=== PATIENT | male | born 1940 | race Caucasian/White ===

== ENCOUNTER 2016-09-12 15:42 | Inpatient (IN) | payer MEDICARE ==
[~2016-09-12] VITALS: Ht 172.7 cm; Wt 124.8 kg
--- NOTE | 2016-09-12 16:00 | PHYS DOC ---
Adult General Chief Complaint Chief Complaint: PSYCH EVALUATION HPI HPI Patient is a 76-year-old man brought from a longterm facility for medical screening exam prior to admission to behavioral unit. Patient was transported by a wheelchair van to the ED, bringing paperwork from his longterm. Patient does not know where he is or why he is here, he does have behavior consistent with dementia. 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 He denies having any pain at this time. He denies being short of air. He is alert, cooperative, and talkative, but does not have any meaningful contribution to the history. Records from the longterm were reviewed, including med list showing that he has been on warfarin and on Depakote for mood control. Review of Systems Review of Systems Review of systems not able to be obtained because the patient has dementia and not able to contribute to answering these questions Physical Exam Physical Exam Constitutional: Well developed, well nourished, no acute distress, non-toxic appearance. Alert, talkative, cooperative, does not appear to be in any distress. HENT: Normocephalic, atraumatic, bilateral external ears normal, nose normal. [] Eyes: conjunctiva normal, no discharge. [] Neck: Normal range of motion, no stridor. [] Cardiovascular:Heart rate regular rhythm, no murmur [] Lungs & Thorax: Bilateral breath sounds clear to auscultation [] Abdomen: Bowel sounds normal, soft, no tenderness, no masses, no pulsatile masses. [] Skin: Warm, dry, no erythema, no rash. [] Extremities: No tenderness, no cyanosis, no clubbing, ROM intact, chronic appearing edema of both ankles and feet, 2+ left, 1+ right, with some redness of the skin of the lower leg bilaterally, may be chronic Neurologic: Alert and oriented X one, normal motor function, normal sensory function, no focal deficits noted. [] EKG EKG 12-lead EKG read by me. Sinus rhythm. Heart rate 70. Left anterior fascicular block with slightly widened QRS. There are no acute ST or T wave changes indicative of ischemia or infarction. There is no rhythm disturbance. No STEMI. 1554 [] Radiology/Procedures Radiology/Procedures [] Course & Med Decision Making Course & Med Decision Making Pertinent Labs and Imaging studies reviewed. (See chart for details) 76-year-old male presents for medical clearance prior to admission to [facility] behavioral health unit. Patient is cooperative at this time. Labs, urine, EKG ordered. Labs remarkable for mild anemia, doubt acute. INR therapeutic. Valproic acid level is subtherapeutic, however, patient's longterm chart indicates that this is used for "behavior" so it may well not need to be in the therapeutic anticonvulsant range. Urinalysis unremarkable. Patient is medically stable for admission to the [facility] health unit. [] Dragon Disclaimer Dragon Disclaimer This chart was dictated in whole or in part using Voice Recognition software in a busy, high-work load, and often noisy Emergency Department environment. It may contain unintended and wholly unrecognized errors or omissions. Departure Departure: Impression: Primary Impression: Encounter for medical screening examination Additional Impression: Dementia Disposition: ADMITTED INPATIENT Condition: STABLE Referrals: BINA HALL JR, MD (PCP) Problem Qualifiers OBEY LIN MD September 12, 2016 16:00
--- NOTE | 2016-09-12 16:06 | EKG ---
[address] [address] Test Date: 2016-09-12 Test Time: 15:54:53 Pat Name: ABBEY MATHIS Department: Room: Gender: M Quality Assurance Specialist: : [id number] Requested By: OBEY LIN Order Number: [id number] Reading MD: Anthony Pagan Measurements Intervals Leigh Rate: 70 P: 39 FL: 226 QRS: -38 QRSD: 110 T: 0 QT: 424 QTc: 461 Interpretive Statements SINUS RHYTHM PROLONGED FL INTERVAL Electronically Signed On 09-17-2016 9:24:57 CDT by Anthony Pagan
[2016-09-12 16:30] LABS: BASO # 0.1 x10^3/uL (0.0-0.2); BASO % 1 % (0-3); EOS # 0.3 x10^3/uL (0.0-0.7); EOS % 4 % (0-3); HEMATOCRIT 33.5 % (39.0-53.0); HEMOGLOBIN 11.2 g/dL (13.0-17.5); LYMPH # 1.2 x10^3/uL (1.0-4.8); LYMPH % 18 % (24-48); MEAN CORPUSCULAR HEMOGLOBIN 29 pg (25-35); MEAN CORPUSCULAR HGB CONC 34 g/dL (31-37); MEAN CORPUSCULAR VOLUME 88 fL (79-100); MONO # 0.8 x10^3/uL (0.0-1.1); MONO % 11 % (0-9); NEUT # 4.6 x10^3uL (1.8-7.7); NEUT % 67 % (31-73); PLATELET COUNT 149 x10^3/uL (140-400); RED BLOOD COUNT 3.83 x10^6/uL (4.30-5.70); RED CELL DISTRIBUTION WIDTH 15.5 % (11.5-14.5); WHITE BLOOD COUNT 6.9 x10^3/uL (4.0-11.0)
[2016-09-12 16:41] LABS: ALBUMIN 3.4 g/dL (3.4-5.0); ALBUMIN/GLOBULIN RATIO 0.9 (1.0-1.7); ALK PHOS 56 U/L (46-116); ALT (SGPT) 22 U/L (16-63); ANION GAP 9 (6-14); AST (SGOT) 22 U/L (15-37); BLOOD UREA NITROGEN 17 mg/dL (8-26); BUN/CREATININE RATIO 14 (6-20); CALCIUM 8.8 mg/dL (8.5-10.1); CARBON DIOXIDE 27 mmol/L (21-32); CHLORIDE 107 mmol/L (98-107); CREATININE 1.2 mg/dL (0.7-1.3); GFR 59.2; GLUCOSE 92 mg/dL (70-99); MAGNESIUM 2.1 mg/dL (1.8-2.4); POTASSIUM 4.4 mmol/L (3.5-5.1); SODIUM 143 mmol/L (136-145); TOTAL BILIRUBIN 1.2 mg/dL (0.2-1.0); TOTAL PROTEIN 7.1 g/dL (6.4-8.2); VAL ACID 28 mcg/mL (50-100)
[2016-09-12 17:08] LABS: BILIRUBIN,URINE NEG (NEG); CLARITY,URINE CLEAR; COLOR,URINE YELLOW; GLUCOSE,URINE NEG (NEG)
[2016-09-12 17:09] LABS: BACTERIA,URINE 0 /HPF (0-FEW); NITRITE,URINE NEG (NEG); RBC,URINE OCC /HPF (0-2); UROBILINOGEN,URINE 0.2 mg/dL (0.2 mg/dL); WBC,URINE OCC /HPF (0-4)
[2016-09-12 18:31] VITALS: BP 162/79
--- NOTE | 2016-09-12 19:01 | NUR ---
Pt arrived on unit via gurney accompanied by EMS staff. Dx: Dementia w BD. Pt A/O to self, . Pt states that it is 1996 and that he is not staying the night, he is going back to [place], [place]. Pt refusing to leave room and eat dinner. Will continue to monitor.
[2016-09-12] MEDS ORDERED: MAGNESIUM HYDROXIDE 2,400 MG/30 ML ORAL.SUSP. PO PRN (19:15)
[2016-09-12] MEDS ORDERED: METHYL SALICYLATE/MENTHOL TOPICAL OINTMENT 29GM TUBE. TP PRN (19:15)
[2016-09-12] MEDS ORDERED: MAG HYDROX/AL HYDROX/SIMETH 30 ML ORAL.SUSP PO PRN (19:15)
[2016-09-12] MEDS ORDERED: ACETAMINOPHEN 325 MG TABLET PO PRN (19:15)
[2016-09-12] MEDS ORDERED: LISI-338 PO (19:32)
[2016-09-12] MEDS ORDERED: TAMS0.4C2 PO (19:32)
[2016-09-12] MEDS ORDERED: LORA0.5T96 PO (19:32)
[2016-09-12] MEDS ORDERED: LORA-434 PO (19:32)
[2016-09-12] MEDS ORDERED: [UNRECOGNIZED DRUG - CODE] TD (19:32)
[2016-09-12] MEDS ORDERED: FAMO20TA5 PO (19:32)
[2016-09-12] MEDS ORDERED: LOPE2CAP88 PO (19:32)
[2016-09-12] MEDS ORDERED: BUSP7.5T PO (19:32)
[2016-09-12] MEDS ORDERED: ASPI-630 PO (19:32)
[2016-09-12] MEDS ORDERED: AMIO200T2 PO (19:32)
[2016-09-12] MEDS ORDERED: DIVA250T4 PO (19:32)
[2016-09-12] MEDS ORDERED: MULT1TAB57 PO (19:32)
[2016-09-12] MEDS ORDERED: LOPERAMIDE 2 MG CAPSULE PO PRN (19:45)
[2016-09-12] MEDS: DIVALPROEX SODIUM 250 MG TABLET.DR. PO SCH (20:50)
[2016-09-12] MEDS: busPIRone 15 MG TABLET. PO SCH (20:50)
[2016-09-12] MEDS: LORazepam 1 MG TABLET PO SCH (20:52)
--- NOTE | 2016-09-12 22:01 | PDOC ---
Exam Blake Demential Exam: Blake Note: Please also refer to the separate dictated note~for this date of service dictated separately.~Patient seen individually. Discussed the patient with Nursing staff reviewed the chart.~Reviewed interim history and current functioning. Reviewed vital signs,~Labs/ Radiology~and current medications noted below. Continue current treatment with the changes noted in the dictated addendum note Assessment: Vital Signs: Vital Signs Date Time Temp Pulse Resp B/P (MAP) Pulse Ox O2 Delivery O2 Flow Rate FiO2 09/12/16 18:31 97.2 70 18 162/79 (106) 96 09/12/16 17:18 Room Air 95.0 Labs: Laboratory Tests Test 09/12/16 16:05 09/12/16 16:25 White Blood Count 6.9 x10^3/uL (4.0-11.0) Red Blood Count 3.83 x10^6/uL (4.30-5.70) L Hemoglobin 11.2 g/dL (13.0-17.5) L Hematocrit 33.5 % (39.0-53.0) L Mean Corpuscular Volume 88 fL (79-100) Mean Corpuscular Hemoglobin 29 pg (25-35) Mean Corpuscular Hemoglobin Concent 34 g/dL (31-37) Red Cell Distribution Width 15.5 % (11.5-14.5) H Platelet Count 149 x10^3/uL (140-400) Neutrophils (%) (Auto) 67 % (31-73) Lymphocytes (%) (Auto) 18 % (24-48) L Monocytes (%) (Auto) 11 % (0-9) H Eosinophils (%) (Auto) 4 % (0-3) H Basophils (%) (Auto) 1 % (0-3) Neutrophils # (Auto) 4.6 x10^3uL (1.8-7.7) Lymphocytes # (Auto) 1.2 x10^3/uL (1.0-4.8) Monocytes # (Auto) 0.8 x10^3/uL (0.0-1.1) Eosinophils # (Auto) 0.3 x10^3/uL (0.0-0.7) Basophils # (Auto) 0.1 x10^3/uL (0.0-0.2) Prothrombin Time 26.3 SEC (9.4-11.4) H Prothrombin Time INR 2.6 (0.9-1.1) H Sodium Level 143 mmol/L (136-145) Potassium Level 4.4 mmol/L (3.5-5.1) Chloride Level 107 mmol/L (98-107) Carbon Dioxide Level 27 mmol/L (21-32) Anion Gap 9 (6-14) Blood Urea Nitrogen 17 mg/dL (8-26) Creatinine 1.2 mg/dL (0.7-1.3) Estimated GFR (Cockcroft-Gault) 59.2 BUN/Creatinine Ratio 14 (6-20) Glucose Level 92 mg/dL (70-99) Calcium Level 8.8 mg/dL (8.5-10.1) Magnesium Level 2.1 mg/dL (1.8-2.4) Total Bilirubin 1.2 mg/dL (0.2-1.0) H Aspartate Amino Transferase (AST) 22 U/L (15-37) Alanine Aminotransferase (ALT) 22 U/L (16-63) Alkaline Phosphatase 56 U/L (46-116) Total Protein 7.1 g/dL (6.4-8.2) Albumin 3.4 g/dL (3.4-5.0) Albumin/Globulin Ratio 0.9 (1.0-1.7) L Valproic Acid Level 28 mcg/mL (50-100) L Valproic Acid Last Dose Date 09/12/16 Valproic Acid Last Dose Time 0800 Urine Collection Type Unknown Urine Color Yellow Urine Clarity Clear Urine pH 6.5 Urine Specific [place] 1.020 Urine Protein Neg (NEG-TRACE) Urine Glucose (UA) Neg mg/dL (NEG) Urine Ketones (Stick) Neg mg/dL (NEG) Urine Blood Neg (NEG) Urine Nitrite Neg (NEG) Urine Bilirubin Neg (NEG) Urine Urobilinogen Dipstick 0.2 mg/dL (0.2 mg/dL) Urine Leukocyte Esterase Neg (NEG) Urine RBC Occ /HPF (0-2) Urine WBC Occ /HPF (0-4) Urine Squamous Epithelial Cells None /LPF Urine Bacteria 0 /HPF (0-FEW) Current Medications: Meds: Current Medications Acetaminophen (Tylenol) 650 mg PRN Q6HRS PRN PO PAIN / TEMP; Start 09/12/16 at 19:15 Multi-Ingredient Ointment (Analgesic [place]) 1 wilfredo PRN QID PRN TP MUSCLE PAIN; Start 09/12/16 at 19:15 Al Hydroxide/Mg Hydroxide (Mylanta Plus Xs) 15 ml PRN AFTMEALHC PRN PO DYSPEPSIA; Start 09/12/16 at 19:15 Magnesium Hydroxide (Milk Of Magnesia) 2,400 mg PRN QHS PRN PO CONSTIPATION; Start 09/12/16 at 19:15 Divalproex Sodium (Depakote) 250 mg BID PO Last administered on 09/12/16 20:50 ; Start 09/12/16 at 21:00 Lorazepam (Ativan) 0.5 mg PRN BID PRN PO ANXIETY / AGITATION; Start 09/12/16 at 19:45 Lorazepam (Ativan) 1 mg BID PO Last administered on 09/12/16 20:52; Start 02/19 at 21:00 Selegiline HCl (Emsam) 1 patch DAILY TD ; Start 09/13/16 at 09:00; Status UNV Buspirone HCl (Buspar) 7.5 mg BID PO Last administered on 09/12/16 20:50; Start 09/12/16 at 21:00 Amiodarone HCl (Cordarone) 100 mg DAILY PO ; Start 09/13/16 at 09:00 Aspirin (Children'S Aspirin) 81 mg DAILY PO ; Start 09/13/16 at 09:00 Famotidine (Pepcid) 20 mg DAILY PO ; Start 09/13/16 at 09:00 Lisinopril (Prinivil) 5 mg DAILY PO ; Start 09/13/16 at 09:00 Loperamide HCl (Imodium) 2 mg PRN Q4HRS PRN PO DIARRHEA; Start 09/12/16 at 19: 45 Tamsulosin HCl (Flomax) 0.4 mg DAILY PO ; Start 09/13/16 at 09:00 Warfarin Sodium (Coumadin) 2.5 mg DAILY16 PO ; Start 09/13/16 at 16:00 Multivitamins/ Calcium (Thera-M Plus) 1 tab DAILY PO ; Start 09/13/16 at 09:00 Warfarin Sodium (Coumadin) 2 mg DAILY16 PO ; Start 09/13/16 at 16:00 Active Scripts Active Reported Therems-M (Multivits,Th W-Fe,Other Min) 1 Each Tablet 1 Each PO DAILY Tamsulosin Hcl 0.4 Mg Cap.er.24h 0.4 Mg PO DAILY Lisinopril 5 Mg Tablet 5 Mg PO DAILY Famotidine 20 Mg Tablet 20 Mg PO DAILY Emsam (Selegiline) 1 Each Patch.td24 1 Each TD DAILY Aspirin 81 Mg Tab.chew 81 Mg PO DAILY Amiodarone Hcl 200 Mg Tablet 100 Mg PO DAILY Depakote (Divalproex Sodium) 250 Mg Tablet.dr 250 Mg PO BID Coumadin (Warfarin Sodium) 4 Mg Tablet 4.5 Mg PO DAILY Ativan (Lorazepam) 0.5 Mg Tablet 0.5 Mg PO PRN BID PRN Imodium A-D (Loperamide HCl) 2 Mg Capsule 2 Mg PO PRN PRN MDD 12 mg Ativan (Lorazepam) 1 Mg Tablet 1 Mg PO BID Buspirone Hcl 7.5 Mg Tablet 7.5 Mg PO BID LINDSAY BROWN MD September 12, 2016 22:01
[2016-09-13 06:27] VITALS: BP 129/87
[2016-09-13] MEDS: busPIRone 15 MG TABLET. PO SCH ×2 (07:55→20:02)
[2016-09-13] MEDS: DIVALPROEX SODIUM 250 MG TABLET.DR. PO SCH ×2 (07:56→20:02)
[2016-09-13] MEDS: LORazepam 1 MG TABLET PO SCH ×2 (07:59→20:02)
[2016-09-13] MEDS: ASPIRIN 81 MG TAB.CHEW PO SCH (07:59)
[2016-09-13] MEDS: TAMSULOSIN 0.4 MG CAP.ER.24H. PO SCH (08:00)
[2016-09-13] MEDS: AMIODARONE HCL 200 MG TABLET PO SCH (08:00)
[2016-09-13] MEDS: FAMOTIDINE 20 MG TABLET PO SCH (08:00)
[2016-09-13] MEDS: LISINOPRIL 5 MG TABLET. PO SCH (08:01)
[2016-09-13] MEDS: MULTIVITAMIN with MINERAL TABLET. PO SCH (08:01)
[2016-09-13] MEDS ORDERED: SELEGILINE TD SCH (09:00)
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
--- NOTE | 2016-09-13 10:45 | NUR ---
THERAPEUTIC RECREATION GROUP NOTE TITLE :Balloon Bop with Noodles ACTIVITY : Activities and Games GOAL : Increase socialization and alertness. Maintain/improve mental and physical functioning. DURATION : 60 Minutes RESPONSE : Full participation. Pt. sat with a smile on his face most of the time. He used the pool noodle and hand to hit the balloon when it came to him. He waited patiently when it was not near him. He needed prompting and cues but was quick to comply. He was pleasant to have in group.
--- NOTE | 2016-09-13 12:14 | NUR ---
Pharmacy Warfarin Dosing Note S:Pharmacy consulted to assist with anticoagulation therapy started with target INR: 2 -3 O:ABBEY MATHIS is a 76 year old M with hx of stroke. LABS: Last INR: 2.6 Last HGB: 11.2 Last HCT: 33.5 Last PLT: 149 Previous Regimen: COUMADIN 4.5MG PO DAILY Drug Interaction Changes: Same Interacting Drug Ongoing Drug Interactions: AMIODARONE A:INR Within desired Range. Target Range for this patient is: 2 -3 P: Warfarin dose: Continue home dose of Coumadin 4.5MG daily at 1600 Bridge Therapy: None Next INR due 09/14/16 Pharmacy anticoagulation service will continue to follow. CHAYO ACEVEDO, [facility] 09/13/16 [id number]
--- NOTE | 2016-09-13 14:00 | NUR ---
THERAPEUTIC RECREATION GROUP NOTE TITLE :Jessie/ 23 ACTIVITY : Activities and Games GOAL : Increase social interaction, fine motor skills. Maintain or improve mental functioning. Decrease restlessness DURATION : 60 minutes RESPONSE : No participation.
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
[2016-09-13] MEDS: WARFARIN 2 MG TABLET. PO SCH (16:12)
[2016-09-13] MEDS: WARFARIN 2.5 MG TABLET. PO SCH (16:13)
[2016-09-13 16:17] VITALS: BP 134/83
--- NOTE | 2016-09-13 16:48 | NUR ---
Behavior Intervention Response and Plan: BIRP Note: Behavior: Assumed Care of patient, patient located in Dining Room at shift change. Patient exhibited the following behavior Cooperative, Compliant, Calm. Brief assessment on rounds of vital signs, medication needs, lab studies, and pain. Treatment plan problems 1 and 2. Intervention: Patient assessed and the following interventions initiated safety checks 15 Minute Checks Medications , Nutrition , Nutrition. Response: After interactions and interventions patient responded in the following manner, Calm , Interactive ,Disorganized. Continue to assess behaviors and condition will continue to monitor throughout the shift as needed. Plan: Continue to monitor Master Treatment Plan for patient's progress toward short term goals of Decreased Aggression, Decreased Agitation, retirement goals to return to previous living setting vs placement. Continue to assess patient for changes in above assessment. Monitor for medication needs, pain, and safety concerns. Hourly rounding performed to ensure safe environment.
[2016-09-13 18:09] LABS: T3 TOTAL 97 ng/dL (71-180); THYROXINE 7.5 ug/dL (4.5-12.0)
--- NOTE | 2016-09-13 21:03 | PDOC ---
Exam Blake Demential Exam: Blake Note: Please also refer to the separate dictated note~for this date of service dictated separately.~Patient seen individually. Discussed the patient with Nursing staff reviewed the chart.~Reviewed interim history and current functioning. Reviewed vital signs,~Labs/ Radiology~and current medications noted below. Continue current treatment with the changes noted in the dictated addendum note Assessment: Vital Signs: Vital Signs Date Time Temp Pulse Resp B/P (MAP) Pulse Ox O2 Delivery O2 Flow Rate FiO2 09/13/16 16:17 97.2 74 17 134/83 (100) 93 09/12/16 17:18 Room Air 95.0 I&O Intake and Output 09/13/16 07:00 Intake Total 120 ml Output Total 1 ml Balance 119 ml Intake Oral 120 ml Output Stool Total 1 ml # Voids 3 Labs: Laboratory Tests Test 09/12/16 21:47 Triglycerides Level 69 mg/dL (0-150) Cholesterol Level 135 mg/dL (0-200) LDL Cholesterol, Calculated 89 mg/dL (0-100) VLDL Cholesterol, Calculated 13 mg/dL (0-40) Non-HDL Cholesterol Calculated 102 mg/dL (0-129) HDL Cholesterol 33 mg/dL (40-60) L Cholesterol/HDL Ratio 4.0 Thyroxine (T4) 7.5 ug/dL (4.5-12.0) Total Triiodothyronine (TT3) 97 ng/dL (71-180) RPR Titer Additional Testing Pending Current Medications: Meds: Current Medications Acetaminophen (Tylenol) 650 mg PRN Q6HRS PRN PO PAIN / TEMP; Start 09/12/16 at 19:15 Multi-Ingredient Ointment (Analgesic [place]) 1 wilfredo PRN QID PRN TP MUSCLE PAIN; Start 09/12/16 at 19:15 Al Hydroxide/Mg Hydroxide (Mylanta Plus Xs) 15 ml PRN AFTMEALHC PRN PO DYSPEPSIA; Start 09/12/16 at 19:15 Magnesium Hydroxide (Milk Of Magnesia) 2,400 mg PRN QHS PRN PO CONSTIPATION; Start 09/12/16 at 19:15 Divalproex Sodium (Depakote) 250 mg BID PO Last administered on 09/13/16t 20:02 ; Start 09/12/16 at 21:00 Lorazepam (Ativan) 0.5 mg PRN BID PRN PO ANXIETY / AGITATION; Start 09/12/16 at 19:45 Lorazepam (Ativan) 1 mg BID PO Last administered on 09/13/16 20:02; Start 02/19 at 21:00 Selegiline HCl (Emsam) 1 patch DAILY TD ; Start 09/13/16 at 09:00; Stop at 18:35; Status DC Buspirone HCl (Buspar) 7.5 mg BID PO Last administered on 09/13/16 20:02; Start 09/12/16 at 21:00 Amiodarone HCl (Cordarone) 100 mg DAILY PO Last administered on 09/13/16 08:00 ; Start 09/13/16 at 09:00 Aspirin (Children'S Aspirin) 81 mg DAILY PO Last administered on 09/13/16 07: 59; Start 09/13/16 at 09:00 Famotidine (Pepcid) 20 mg DAILY PO Last administered on 09/13/16 08:00; Start 09/13/16 at 09:00 Lisinopril (Prinivil) 5 mg DAILY PO Last administered on 09/13/16 08:01; Start 09/13/16 at 09:00 Loperamide HCl (Imodium) 2 mg PRN Q4HRS PRN PO DIARRHEA; Start 09/12/16 at 19: 45 Tamsulosin HCl (Flomax) 0.4 mg DAILY PO Last administered on 09/13/16 08:00; Start 09/13/16 at 09:00 Warfarin Sodium (Coumadin) 2.5 mg DAILY16 PO Last administered on 09/13/16 16: 13; Start 09/13/16 at 16:00 Multivitamins/ Calcium (Thera-M Plus) 1 tab DAILY PO Last administered on 08:01; Start 09/13/16 at 09:00 Warfarin Sodium (Coumadin) 2 mg DAILY16 PO Last administered on 09/13/16 16:12 ; Start 09/13/16 at 16:00 Warfarin Sodium (Coumadin Per Pharmacy) 1 each PRN DAILY PRN MC SEE COMMENTS Last administered on 09/13/16 12:14; Start 09/13/16 at 03:15 Vitamin D (Vitamin D3) 50,000 unit WEEKLY PO ; Start 09/14/16 at 09:00 Selegiline HCl (Eldepryl) 5 mg DAILY PO ; Start 09/14/16 at 09:00 Active Scripts Active Reported Therems-M (Multivits, W-Fe,Other Min) 1 Each Tablet 1 Each PO DAILY Tamsulosin Hcl 0.4 Mg Cap.er.24h 0.4 Mg PO DAILY Lisinopril 5 Mg Tablet 5 Mg PO DAILY Famotidine 20 Mg Tablet 20 Mg PO DAILY Emsam (Selegiline) 1 Each Patch.td24 1 Each TD DAILY Aspirin 81 Mg Tab.chew 81 Mg PO DAILY Amiodarone Hcl 200 Mg Tablet 100 Mg PO DAILY Depakote (Divalproex Sodium) 250 Mg Tablet.dr 250 Mg PO BID Coumadin (Warfarin Sodium) 4 Mg Tablet 4.5 Mg PO DAILY Ativan (Lorazepam) 0.5 Mg Tablet 0.5 Mg PO PRN BID PRN Imodium A-D (Loperamide HCl) 2 Mg Capsule 2 Mg PO PRN PRN MDD 12 mg Ativan (Lorazepam) 1 Mg Tablet 1 Mg PO BID Buspirone Hcl 7.5 Mg Tablet 7.5 Mg PO BID LINDSAY BROWN MD September 13, 2016 21:03
--- NOTE | 2016-09-13 21:20 | NUR ---
Behavior Intervention Response and Plan: BIRP Note: Behavior: Assumed Care of patient, patient located in Day Room at shift change. Patient exhibited the following behavior Calm, Able to Focus on Task, Social. Brief assessment on rounds of vital signs, medication needs, lab studies, and pain. Treatment plan problems . Intervention: Patient assessed and the following interventions initiated safety checks 15 Minute Checks Cognitive Assessment , Head to toe Assessment , Medications. Response: After interactions and interventions patient responded in the following manner, Appropriate , Compliant ,Cooperative. Continue to assess behaviors and condition will continue to monitor throughout the shift as needed. 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 Continue to assess patient for changes in above assessment. Monitor for medication needs, pain, and safety concerns. Hourly rounding performed to ensure safe environment.
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
[2016-09-14] MEDS: LORazepam 0.5 MG TABLET PO PRN (01:11)
--- NOTE | 2016-09-14 01:13 | NUR ---
Pt up from bed , confused about where he is, Attempting to wander when other residents are sleeping. When redirected, refused to listen and became agitated. Unable to redirect, gave PRN ativan as ordered.
[2016-09-14 03:15] LABS: HEMOGLOBIN A1C 5.5 % (4.8-5.6)
[2016-09-14 06:39] VITALS: BP 138/73
[2016-09-14] MEDS: ASPIRIN 81 MG TAB.CHEW PO SCH (07:24)
[2016-09-14] MEDS: busPIRone 15 MG TABLET. PO SCH ×2 (07:24→20:10)
[2016-09-14] MEDS: DIVALPROEX SODIUM 250 MG TABLET.DR. PO SCH ×2 (07:25→20:10)
[2016-09-14] MEDS: AMIODARONE HCL 200 MG TABLET PO SCH (07:25)
[2016-09-14] MEDS: TAMSULOSIN 0.4 MG CAP.ER.24H. PO SCH (07:26)
[2016-09-14] MEDS: MULTIVITAMIN with MINERAL TABLET. PO SCH (07:26)
[2016-09-14] MEDS: FAMOTIDINE 20 MG TABLET PO SCH (07:26)
[2016-09-14] MEDS: LISINOPRIL 5 MG TABLET. PO SCH (07:26)
[2016-09-14] MEDS: SELEGILINE 5 MG PO SCH (07:43)
[2016-09-14] MEDS: LORazepam 1 MG TABLET PO SCH ×2 (07:43→20:10)
[2016-09-14] MEDS: CHOLECALCIFEROL (VITAMIN D3) 50,000 UNIT CAPSULE PO SCH (07:43)
--- NOTE | 2016-09-14 10:00 | NUR ---
THERAPEUTIC RECREATION GROUP NOTE TITLE :Characteristics of a M-[id number] ACTIVITY : Cognitive Stimulation GOAL : Stimulate memory, Increase problem solving DURATION : 45 minutes RESPONSE : Full participation. Pt. sat with the group the entire time and suggested several characteristics of a mother. He repeated himself occasionally but was pleasant with a smile on his face the entire time. He spoke highly of mothers.
--- NOTE | 2016-09-14 11:30 | NUR ---
THERAPEUTIC RECREATION GROUP NOTE TITLE :Movement to Music: Flexibility ACTIVITY : Movement/ Exercise GOAL : Increase morale, attention, flexibility. Decrease stress/anxiety. DURATION : 25 minutes RESPONSE : Full participation. Pt. needed occasional prompting and reminders. He had a smile on his face the entire time and was compliant. He adapted his moves at times and other times was able to copy the desired moves.
--- NOTE | 2016-09-14 14:45 | NUR ---
THERAPEUTIC RECREATION GROUP NOTE TITLE :Mother's Day Jeopardy ACTIVITY : Cognitive Stimulation GOAL : Stimulate memory, Increase problem solving DURATION : 45 minutes RESPONSE : No participation.
[2016-09-14 15:34] VITALS: BP 120/76
--- NOTE | 2016-09-14 15:45 | NUR ---
Attempted to meet and complete Activity Therapy Assessment; however, Pt. was sleeping. Will attempt again tomorrow.
[2016-09-14] MEDS: WARFARIN 2.5 MG TABLET. PO SCH (16:05)
[2016-09-14] MEDS: WARFARIN 2 MG TABLET. PO SCH (16:06)
--- NOTE | 2016-09-14 18:13 | NUR ---
Behavior Intervention Response and Plan: BIRP Note: Behavior: Assumed Care of patient, patient located in Day Room at shift change. Patient exhibited the following behavior Appropriate, Compliant, Cooperative. Brief assessment on rounds of vital signs, medication needs, lab studies, and pain. Treatment plan problems 1 and 2. Intervention: Patient assessed and the following interventions initiated safety checks 15 Minute Checks Cognitive Assessment , Head to toe Assessment , Medications. Response: After interactions and interventions patient responded in the following manner, Cooperative , Calm ,Social. Continue to assess behaviors and condition will continue to monitor throughout the shift as needed. Plan: Continue to monitor Master Treatment Plan for patient's progress toward short term goals of Decreased Aggression, No harm To self/ others, parts counterman goals to return to previous living setting vs placement. Continue to assess patient for changes in above assessment. Monitor for medication needs, pain, and safety concerns. Hourly rounding performed to ensure safe environment.
--- NOTE | 2016-09-14 21:04 | PDOC ---
Exam Blake Demential Exam: Blake Note: Please also refer to the separate dictated note~for this date of service dictated separately.~Patient seen individually. Discussed the patient with Nursing staff reviewed the chart.~Reviewed interim history and current functioning. Reviewed vital signs,~Labs/ Radiology~and current medications noted below. Continue current treatment with the changes noted in the dictated addendum note Assessment: Vital Signs: Vital Signs Date Time Temp Pulse Resp B/P (MAP) Pulse Ox O2 Delivery O2 Flow Rate FiO2 09/14/16 15:34 97.7 73 19 120/76 (91) 96 09/12/16 17:18 Room Air 95.0 I&O Intake and Output 09/14/16 07:00 Intake Total 960 ml Balance 960 ml Intake Oral 960 ml # Voids 2 Labs: Laboratory Tests Test 09/14/16 14:16 Prothrombin Time 23.6 SEC (9.4-11.4) H Prothrombin Time INR 2.3 (0.9-1.1) H Current Medications: Meds: Current Medications Acetaminophen (Tylenol) 650 mg PRN Q6HRS PRN PO PAIN / TEMP; Start 09/12/16 at 19:15 Multi-Ingredient Ointment (Analgesic [place]) 1 wilfredo PRN QID PRN TP MUSCLE PAIN; Start 09/12/16 at 19:15 Al Hydroxide/Mg Hydroxide (Mylanta Plus Xs) 15 ml PRN AFTMEALHC PRN PO DYSPEPSIA; Start 09/12/16 at 19:15 Magnesium Hydroxide (Milk Of Magnesia) 2,400 mg PRN QHS PRN PO CONSTIPATION; Start 09/12/16 at 19:15 Divalproex Sodium (Depakote) 250 mg BID PO Last administered on 09/14/16 20:10 ; Start 09/12/16 at 21:00 Lorazepam (Ativan) 0.5 mg PRN BID PRN PO ANXIETY / AGITATION Last administered on 09/14/16 01:11; Start 09/12/16 at 19:45 Lorazepam (Ativan) 1 mg BID PO Last administered on 09/14/16 20:10; Start 02/19 at 21:00 Selegiline HCl (Emsam) 1 patch DAILY TD ; Start 09/13/16 at 09:00; Stop at 18:35; Status DC Buspirone HCl (Buspar) 7.5 mg BID PO Last administered on 09/14/16 20:10; Start 09/12/16 at 21:00 Amiodarone HCl (Cordarone) 100 mg DAILY PO Last administered on 09/14/16 07:25 ; Start 09/13/16 at 09:00 Aspirin (Children'S Aspirin) 81 mg DAILY PO Last administered on 09/14/16 07: 24; Start 09/13/16 at 09:00 Famotidine (Pepcid) 20 mg DAILY PO Last administered on 09/14/16 07:26; Start 09/13/16 at 09:00 Lisinopril (Prinivil) 5 mg DAILY PO Last administered on 09/14/16 07:26; Start 09/13/16 at 09:00 Loperamide HCl (Imodium) 2 mg PRN Q4HRS PRN PO DIARRHEA; Start 09/12/16 at 19: 45 Tamsulosin HCl (Flomax) 0.4 mg DAILY PO Last administered on 09/14/16 07:26; Start 09/13/16 at 09:00 Warfarin Sodium (Coumadin) 2.5 mg DAILY16 PO Last administered on 09/14/16 16: 05; Start 09/13/16 at 16:00 Multivitamins/ Calcium (Thera-M Plus) 1 tab DAILY PO Last administered on 07:26; Start 09/13/16 at 09:00 Warfarin Sodium (Coumadin) 2 mg DAILY16 PO Last administered on 09/14/16 16:06 ; Start 09/13/16 at 16:00 Warfarin Sodium (Coumadin Per Pharmacy) 1 each PRN DAILY PRN MC SEE COMMENTS Last administered on 09/13/16 12:14; Start 09/13/16 at 03:15 Vitamin D (Vitamin D3) 50,000 unit WEEKLY PO Last administered on 09/14/16 07: 43; Start 09/14/16 at 09:00 Selegiline HCl (Eldepryl) 5 mg DAILY PO Last administered on 09/14/16 07:43; Start 09/14/16 at 09:00 Trazodone HCl (Desyrel) 50 mg PRN QHS PRN PO INSOMNIA, MAY REPEAT X1; Start 04/21 at 19:15 Active Scripts Active Reported Therems-M (Multivits,Th W-Fe,Other Min) 1 Each Tablet 1 Each PO DAILY Tamsulosin Hcl 0.4 Mg Cap.er.24h 0.4 Mg PO DAILY Lisinopril 5 Mg Tablet 5 Mg PO DAILY Famotidine 20 Mg Tablet 20 Mg PO DAILY Emsam (Selegiline) 1 Each Patch.td24 1 Each TD DAILY Aspirin 81 Mg Tab.chew 81 Mg PO DAILY Amiodarone Hcl 200 Mg Tablet 100 Mg PO DAILY Depakote (Divalproex Sodium) 250 Mg Tablet.dr 250 Mg PO BID Coumadin (Warfarin Sodium) 4 Mg Tablet 4.5 Mg PO DAILY Ativan (Lorazepam) 0.5 Mg Tablet 0.5 Mg PO PRN BID PRN Imodium A-D (Loperamide HCl) 2 Mg Capsule 2 Mg PO PRN PRN MDD 12 mg Ativan (Lorazepam) 1 Mg Tablet 1 Mg PO BID Buspirone Hcl 7.5 Mg Tablet 7.5 Mg PO BID LINDSAY BROWN MD September 14, 2016 21:04
[2016-09-14] MEDS ORDERED: NYSTATIN TOPICAL POWDER 30GM BOTTLE. TP ONE (21:27)
--- NOTE | 2016-09-14 22:35 | NUR ---
Behavior Intervention Response and Plan: BIRP Note: Behavior: Assumed Care of patient, patient located in Day Room at shift change. Patient exhibited the following behavior Calm, Disorganized, Social. Brief assessment on rounds of vital signs, medication needs, lab studies, and pain. Treatment plan problems 1-2. Intervention: Patient assessed and the following interventions initiated safety checks 15 Minute Checks Cognitive Assessment , Head to toe Assessment , Medications. Response: After interactions and interventions patient responded in the following manner, Pleasant, Cooperative, Drowsy. Continue to assess behaviors and condition will continue to monitor throughout the shift as needed. Plan: Continue to monitor Master Treatment Plan for patient's progress toward short term goals of Improved Mood, No harm To self/ others, jail goals to return to previous living setting vs placement. Continue to assess patient for changes in above assessment. Monitor for medication needs, pain, and safety concerns. Hourly rounding performed to ensure safe environment.
[2016-09-15 06:24] VITALS: BP 105/67
[2016-09-15] MEDS: busPIRone 15 MG TABLET. PO SCH ×2 (07:49→19:59)
[2016-09-15] MEDS: ASPIRIN 81 MG TAB.CHEW PO SCH (07:50)
[2016-09-15] MEDS: AMIODARONE HCL 200 MG TABLET PO SCH (07:51)
[2016-09-15] MEDS: DIVALPROEX SODIUM 250 MG TABLET.DR. PO SCH ×2 (07:51→20:00)
[2016-09-15] MEDS: TAMSULOSIN 0.4 MG CAP.ER.24H. PO SCH (07:52)
[2016-09-15] MEDS: FAMOTIDINE 20 MG TABLET PO SCH (07:52)
[2016-09-15] MEDS: LISINOPRIL 5 MG TABLET. PO SCH (07:53)
[2016-09-15] MEDS: MULTIVITAMIN with MINERAL TABLET. PO SCH (07:53)
[2016-09-15] MEDS: LORazepam 1 MG TABLET PO SCH ×2 (07:54→20:02)
[2016-09-15] MEDS: SELEGILINE 5 MG PO SCH (07:57)
[2016-09-15] MEDS: NYSTATIN TOPICAL POWDER 30GM BOTTLE. TP SCH ×2 (07:57→20:05)
--- NOTE | 2016-09-15 08:18 | PN ---
DATE: 09/13/2016 This is a late entry for 09/13/2016, covers elements not covered in my initial note. SUBJECTIVE: The patient was staffed at a treatment team meeting with the entire team, 09/13/2016, then seen individually, sleeping about 5 three-quarter hours, appetite 100%, oriented to himself, very pleasant, verbal, believed he has known me for years. REVIEW OF SYSTEMS: Ambulation impaired, in his wheelchair. No CV, , pulmonary, eye, ENT system symptoms on review. MENTAL STATUS EXAM: Oriented to himself. Insight, judgment, recent and remote memory, attention, concentration, fund of knowledge poor, consistent with his diagnosis. LABORATORY DATA: Reviewed. IMPRESSION: Major neurocognitive disorder, Alzheimer, vascular with depression, delusion, behavioral disturbance; anxiety disorder, unspecified; impulse control disorder, unspecified. PLAN: Continue psychotropics mentioned in my initial note, continue to observe baseline then adjust as clinically indicated. MAN Phoenix BROWN MD DR: JEREL/tavo JOB#: [id number] / [id number]
--- NOTE | 2016-09-15 11:46 | NUR ---
Behavior Intervention Response and Plan: BIRP Note: Behavior: Assumed Care of patient, patient located in Day Room at shift change. Patient exhibited the following behavior Calm, Disorganized, Social. Brief assessment on rounds of vital signs, medication needs, lab studies, and pain. Treatment plan problems 1 and 2. Intervention: Patient assessed and the following interventions initiated safety checks 15 Minute Checks Cognitive Assessment , Head to toe Assessment , Medications. Response: After interactions and interventions patient responded in the following manner, Restless , Wandering ,Anxious. Continue to assess behaviors and condition will continue to monitor throughout the shift as needed. Plan: Continue to monitor Master Treatment Plan for patient's progress toward short term goals of Decreased Aggression, No harm To self/ others, environmental aide goals to return to previous living setting vs placement. Continue to assess patient for changes in above assessment. Monitor for medication needs, pain, and safety concerns. Hourly rounding performed to ensure safe environment.
--- NOTE | 2016-09-15 14:35 | NUR ---
Pt is in the dayroom, has been social today with the need for redirection periodically. Contiues to talk about the cows and was getting ready to go play in the [employer] football game when we were sitting outside. 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 Has some bilateral edema with taut, dry skin. Denies any pain and has been pleasant.
--- NOTE | 2016-09-15 15:14 | NUR ---
Pharmacy Warfarin Dosing Note S:Pharmacy consulted to assist with anticoagulation therapy started 09/13/16 with target INR: 2 -3 O:ABBEY MATHIS is a 76 year old M with Stroke LABS: Last INR: 2.1 Last HGB: 11.2 Last HCT: 33.5 Last PLT: 149 Last dose of 4.5MG given on 09/14/16 at 1600 Previous Regimen: 4.5MG DAILY Vitamin K given: N Drug Interaction Changes: Same Interacting Drug Ongoing Drug Interactions: AMIODARONE A:INR Within desired Range. Target Range for this patient is: 2 -3 P: Warfarin dose: 5.5MG Today at 1600 Bridge Therapy: None Next INR due 09/16/16 @0600 Pharmacy anticoagulation service will continue to follow. [place] [facility] [place], 09/15/16 [id number]
[2016-09-15] MEDS ORDERED: WARFARIN 2.5 MG TABLET. PO ONE (15:15)
[2016-09-15] MEDS ORDERED: WARFARIN 3 MG TABLET. PO ONE (16:00)
[2016-09-15 16:03] VITALS: BP 114/68
--- NOTE | 2016-09-15 20:50 | PDOC ---
Exam Blake Demential Exam: Blake Note: Please also refer to the separate dictated note~for this date of service dictated separately.~Patient seen individually. Discussed the patient with Nursing staff reviewed the chart.~Reviewed interim history and current functioning. Reviewed vital signs,~Labs/ Radiology~and current medications noted below. Continue current treatment with the changes noted in the dictated addendum note Assessment: Vital Signs: Vital Signs Date Time Temp Pulse Resp B/P (MAP) Pulse Ox O2 Delivery O2 Flow Rate FiO2 09/15/16 16:03 97.7 104 20 114/68 (83) 98 09/12/16 17:18 Room Air 95.0 I&O Intake and Output 09/15/16 07:00 Intake Total 1360 ml Balance 1360 ml Intake Oral 1360 ml # Voids 2 Labs: Laboratory Tests Test 09/15/16 07:57 Prothrombin Time 21.8 SEC (9.4-11.4) H Prothrombin Time INR 2.1 (0.9-1.1) H Current Medications: Meds: Current Medications Acetaminophen (Tylenol) 650 mg PRN Q6HRS PRN PO PAIN / TEMP Last administered on 09/15/16 20:02; Start 09/12/16 at 19:15 Multi-Ingredient Ointment (Analgesic [place]) 1 wilfredo PRN QID PRN TP MUSCLE PAIN; Start 09/12/16 at 19:15 Al Hydroxide/Mg Hydroxide (Mylanta Plus Xs) 15 ml PRN AFTMEALHC PRN PO DYSPEPSIA; Start 09/12/16 at 19:15 Magnesium Hydroxide (Milk Of Magnesia) 2,400 mg PRN QHS PRN PO CONSTIPATION; Start 09/12/16 at 19:15 Divalproex Sodium (Depakote) 250 mg BID PO Last administered on 09/15/16 20:00 ; Start 09/12/16 at 21:00 Lorazepam (Ativan) 0.5 mg PRN BID PRN PO ANXIETY / AGITATION Last administered on 09/14/16 01:11; Start 09/12/16 at 19:45 Lorazepam (Ativan) 1 mg BID PO Last administered on 09/15/16 20:02; Start 02/19 at 21:00 Selegiline HCl (Emsam) 1 patch DAILY TD ; Start 09/13/16 at 09:00; Stop at 18:35; Status DC Buspirone HCl (Buspar) 7.5 mg BID PO Last administered on 09/15/16 19:59; Start 09/12/16 at 21:00 Amiodarone HCl (Cordarone) 100 mg DAILY PO Last administered on 09/15/16 07:51 ; Start 09/13/16 at 09:00 Aspirin (Children'S Aspirin) 81 mg DAILY PO Last administered on 09/15/16 07: 50; Start 09/13/16 at 09:00 Famotidine (Pepcid) 20 mg DAILY PO Last administered on 09/15/16 07:52; Start 09/13/16 at 09:00 Lisinopril (Prinivil) 5 mg DAILY PO Last administered on 09/15/16 07:53; Start 09/13/16 at 09:00 Loperamide HCl (Imodium) 2 mg PRN Q4HRS PRN PO DIARRHEA; Start 09/12/16 at 19: 45 Tamsulosin HCl (Flomax) 0.4 mg DAILY PO Last administered on 09/15/16 07:52; Start 09/13/16 at 09:00 Warfarin Sodium (Coumadin) 2.5 mg DAILY16 PO Last administered on 09/14/16 16: 05; Start 09/13/16 at 16:00; Stop 09/15/16 at 15:03; Status DC Multivitamins/ Calcium (Thera-M Plus) 1 tab DAILY PO Last administered on 07:53; Start 09/13/16 at 09:00 Warfarin Sodium (Coumadin) 2 mg DAILY16 PO Last administered on 09/14/16 16:06 ; Start 09/13/16 at 16:00; Stop 09/15/16 at 15:02; Status DC Warfarin Sodium (Coumadin Per Pharmacy) 1 each PRN DAILY PRN MC SEE COMMENTS Last administered on 09/15/16 15:14; Start 09/13/16 at 03:15 Vitamin D (Vitamin D3) 50,000 unit WEEKLY PO Last administered on 09/14/16 07: 43; Start 09/14/16 at 09:00 Selegiline HCl (Eldepryl) 5 mg DAILY PO Last administered on 5/13/17at 07:57; Start 09/14/16 at 09:00 Trazodone HCl (Desyrel) 50 mg PRN QHS PRN PO INSOMNIA, SEPTEMBER REPEAT X1; Start 04/21 at 19:15 Nystatin (Nystop) 1 wilfredo BID TP Last administered on 09/15/16 20:05; Start at 09:00 Nystatin (Nystop) 30 wilfredo STK-MED ONCE TP Last administered on 09/14/16 21:27; Start 09/14/16 at 21:27; Stop 09/14/16 at 21:28; Status DC Warfarin Sodium (Coumadin) 3 mg 1X WARF ONCE PO Last administered on 15:48; Start 09/15/16 at 16:00; Stop 09/15/16 at 16:01; Status DC Warfarin Sodium (Coumadin) 2.5 mg 1X ONCE PO Last administered on 09/15/16 15 :47; Start 09/15/16 at 15:15; Stop 09/15/16 at 15:17; Status DC Active Scripts Active Reported Therems-M (Multivits,Th W-Fe,Other Min) 1 Each Tablet 1 Each PO DAILY Tamsulosin Hcl 0.4 Mg Cap.er.24h 0.4 Mg PO DAILY Lisinopril 5 Mg Tablet 5 Mg PO DAILY Famotidine 20 Mg Tablet 20 Mg PO DAILY Emsam (Selegiline) 1 Each Patch.td24 1 Each TD DAILY Aspirin 81 Mg Tab.chew 81 Mg PO DAILY Amiodarone Hcl 200 Mg Tablet 100 Mg PO DAILY Depakote (Divalproex Sodium) 250 Mg Tablet.dr 250 Mg PO BID Coumadin (Warfarin Sodium) 4 Mg Tablet 4.5 Mg PO DAILY Ativan (Lorazepam) 0.5 Mg Tablet 0.5 Mg PO PRN BID PRN Imodium A-D (Loperamide HCl) 2 Mg Capsule 2 Mg PO PRN PRN MDD 12 mg Ativan (Lorazepam) 1 Mg Tablet 1 Mg PO BID Buspirone Hcl 7.5 Mg Tablet 7.5 Mg PO BID Diagnosis: Problems: (1) Dementia LINDSAY BROWN MD September 15, 2016 20:50
--- NOTE | 2016-09-15 23:21 | NUR ---
Behavior Intervention Response and Plan: BIRP Note: Behavior: Assumed Care of patient, patient located in Day Room at shift change. Patient exhibited the following behavior Interactive, Able to Focus on Task, Delusions. Brief assessment on rounds of vital signs, medication needs, lab studies, and pain. Treatment plan problems:1-2 Intervention: Patient assessed and the following interventions initiated safety checks 15 Minute Checks Cognitive Assessment , Head to toe Assessment , Medications. Response: After interactions and interventions patient responded in the following manner, Interactive , Able to Focus on Task ,Cooperative. Continue to assess behaviors and condition will continue to monitor throughout the shift as needed. Plan: Continue to monitor Master Treatment Plan for patient's progress toward short term goals of Decreased Agitation, Decreased Aggression, instrument setter goals to return to previous living setting vs placement. Continue to assess patient for changes in above assessment. Monitor for medication needs, pain, and safety concerns. Hourly rounding performed to ensure safe environment.
--- NOTE | 2016-09-16 02:01 | PN ---
DATE: 09/14/2016 PSYCHIATRIC PROGRESS NOTE This is a late entry of 09/14/2016, covers elements not covered in my initial note. SUBJECTIVE: The patient slept 1-1/2 hours previous night. He was agitated in the morning[place] more confused in the evening. Family said he is " ." REVIEW OF SYSTEMS: No eye, ENT, CV, , pulmonary system symptoms on review. Reliability poor. He is pleasant, smiling, oblivious of where he is. MENTAL STATUS EXAM: Oriented to himself. Insight, judgment, recent and remote memory, attention, concentration, fund of knowledge poor, consistent with his diagnosis mentioned in my initial note. PLAN: Start trazodone 50 mg at bedtime p.r.n., may repeat x 1 for insomnia. Maintain Depakote, Ativan, BuSpar, along with Ativan p.r.n. We will go ahead and attempt a gradual taper off the Ativan from 1 mg b.i.d. to 0.5 mg t.i.d. for 3 days and then 0.5 b.i.d. for 3 days, and 0.5 mg a day for 3 days, and stop and start low dose Seroquel 12.5 mg . Adjust further as clinically indicated. MAN Phoenix BROWN MD DR: JEREL/tavo JOB#: [id number] / [id number]
--- NOTE | 2016-09-16 02:03 | PN ---
DATE: 09/14/2016 PSYCHIATRIC PROGRESS NOTE SUBJECTIVE: The patient was seen individually the evening of 09/14/2016. Per nursing report, he slept 4-1/2 hours, was agitated in the morning of 09/14/2016, [place] then more confused in the evening. REVIEW OF SYSTEMS: No CV, , eye, ENT or pulmonary system symptoms on review. Reliability poor. MENTAL STATUS EXAM: Oriented to himself. Insight, judgment, recent and remote memory, attention, concentration, fund of knowledge poor, consistent with his diagnosis. He is quite pleasant, verbal, smiling with me, oblivious of his surroundings. LABORATORY DATA: Reviewed. IMPRESSION: Major neurocognitive disorder, Alzheimer, vascular with depression, delusions and behavioral disturbance. Majority of his dementia is vascular; however. Anxiety disorder, unspecified; impulse control disorder, unspecified. PLAN: The patient is on Ativan 1 mg b.i.d., we will reduce it to 0.5 mg t.i.d. for 3 days and then 0.5 mg b.i.d. for 3 days then 0.5 mg once a day for 3 days, then stop it, and start Seroquel 12.5 mg at 9 a.m. and 2 p.m. Continue Depakote 250 mg b.i.d., BuSpar 7.5 mg b.i.d. Follow labs level on the Depakote. Adjust further as clinically indicated. LINDSAY BROWN MD DR: JEREL/tavo JOB#: [id number] / [id number]
[2016-09-16 06:32] VITALS: BP 100/76
--- NOTE | 2016-09-16 08:20 | NUR ---
Behavior Intervention Response and Plan: BIRP Note: Behavior: Assumed Care of patient, patient located in Day Room at shift change. Patient exhibited the following behavior Interactive, Cooperative, Cooperative. Brief assessment on rounds of vital signs, medication needs, lab studies, and pain. Treatment plan problems . Intervention: Patient assessed and the following interventions initiated safety checks 15 Minute Checks Cognitive Assessment , Head to toe Assessment , Medications. Response: After interactions and interventions patient responded in the following manner, Calm , Compliant ,Cooperative. Continue to assess behaviors and condition will continue to monitor throughout the shift as needed. 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 Continue to assess patient for changes in above assessment. Monitor for medication needs, pain, and safety concerns. Hourly rounding performed to ensure safe environment.
[2016-09-16] MEDS: TAMSULOSIN 0.4 MG CAP.ER.24H. PO SCH (09:30)
[2016-09-16] MEDS: SELEGILINE 5 MG PO SCH (09:30)
[2016-09-16] MEDS: ASPIRIN 81 MG TAB.CHEW PO SCH (09:30)
[2016-09-16] MEDS: MULTIVITAMIN with MINERAL TABLET. PO SCH (09:30)
[2016-09-16] MEDS: AMIODARONE HCL 200 MG TABLET PO SCH (09:31)
[2016-09-16] MEDS: busPIRone 15 MG TABLET. PO SCH ×2 (09:32→19:32)
[2016-09-16] MEDS: FAMOTIDINE 20 MG TABLET PO SCH (09:32)
[2016-09-16] MEDS: LISINOPRIL 5 MG TABLET. PO SCH (09:32)
[2016-09-16] MEDS: DIVALPROEX SODIUM 250 MG TABLET.DR. PO SCH ×2 (09:32→19:32)
[2016-09-16] MEDS: LORazepam 1 MG TABLET PO SCH ×2 (09:40→19:31)
[2016-09-16] MEDS: NYSTATIN TOPICAL POWDER 30GM BOTTLE. TP SCH ×2 (09:40→19:32)
--- NOTE | 2016-09-16 09:44 | NUR ---
Pharmacy Warfarin Dosing Note S:Pharmacy consulted to assist with anticoagulation therapy started 09/13/16 with target INR: 2 -3 O:ABBEY MATHIS is a 76 year old M with history of Stroke LABS: Last INR: 2.7 Last HGB: 11.2 Last HCT: 33.5 Last PLT: 149 Last dose of 5.5MG given on 09/15/16 at 1600 Previous Regimen: 4.5MG DAILY Vitamin K given: N Drug Interaction Changes: Same Interacting Drug Ongoing Drug Interactions: AMIODARONE A:INR Within desired Range. Target Range for this patient is: 2 -3 P: Warfarin dose: 5 mg Today at 1600 Bridge Therapy: None Next INR due 09/17/16 @0600 Pharmacy anticoagulation service will continue to follow. [facility], 09/16/16 0914
[2016-09-16] MEDS ORDERED: WARFARIN 5 MG TABLET. PO ONE (16:00)
[2016-09-16 16:20] VITALS: BP 104/73
--- NOTE | 2016-09-16 20:10 | PDOC ---
Exam Blake Demential Exam: Blake Note: Please also refer to the separate dictated note~for this date of service dictated separately.~Patient seen individually. Discussed the patient with Nursing staff reviewed the chart.~Reviewed interim history and current functioning. Reviewed vital signs,~Labs/ Radiology~and current medications noted below. Continue current treatment with the changes noted in the dictated addendum note Assessment: Vital Signs: Vital Signs Date Time Temp Pulse Resp B/P (MAP) Pulse Ox O2 Delivery O2 Flow Rate FiO2 09/16/16 16:20 98.5 79 18 104/73 (83) 97 09/12/16 17:18 Room Air 95.0 I&O Intake and Output 09/16/16 07:00 Intake Total 840 ml Balance 840 ml Intake Oral 840 ml # Voids 2 Labs: Laboratory Tests Test 09/16/16 07:04 Prothrombin Time 27.4 SEC (9.4-11.4) H Prothrombin Time INR 2.7 (0.9-1.1) H Current Medications: Meds: Current Medications Acetaminophen (Tylenol) 650 mg PRN Q6HRS PRN PO PAIN / TEMP Last administered on 09/15/16 20:02; Start 09/12/16 at 19:15 Multi-Ingredient Ointment (Analgesic [place]) 1 wilfredo PRN QID PRN TP MUSCLE PAIN; Start 09/12/16 at 19:15 Al Hydroxide/Mg Hydroxide (Mylanta Plus Xs) 15 ml PRN AFTMEALHC PRN PO DYSPEPSIA; Start 09/12/16 at 19:15 Magnesium Hydroxide (Milk Of Magnesia) 2,400 mg PRN QHS PRN PO CONSTIPATION; Start 09/12/16 at 19:15 Divalproex Sodium (Depakote) 250 mg BID PO Last administered on 09/16/16 19:32 ; Start 09/12/16 at 21:00 Lorazepam (Ativan) 0.5 mg PRN BID PRN PO ANXIETY / AGITATION Last administered on 09/14/16 01:11; Start 09/12/16 at 19:45 Lorazepam (Ativan) 1 mg BID PO Last administered on 09/16/16 19:31; Start 02/19 at 21:00 Selegiline HCl (Emsam) 1 patch DAILY TD ; Start 09/13/16 at 09:00; Stop at 18:35; Status DC Buspirone HCl (Buspar) 7.5 mg BID PO Last administered on 09/16/16 19:32; Start 09/12/16 at 21:00 Amiodarone HCl (Cordarone) 100 mg DAILY PO Last administered on 09/16/16 09:31 ; Start 09/13/16 at 09:00 Aspirin (Children'S Aspirin) 81 mg DAILY PO Last administered on 09/16/16 09: 30; Start 09/13/16 at 09:00 Famotidine (Pepcid) 20 mg DAILY PO Last administered on 09/16/16 09:32; Start 09/13/16 at 09:00 Lisinopril (Prinivil) 5 mg DAILY PO Last administered on 09/16/16 09:32; Start 09/13/16 at 09:00 Loperamide HCl (Imodium) 2 mg PRN Q4HRS PRN PO DIARRHEA; Start 09/12/16 at 19: 45 Tamsulosin HCl (Flomax) 0.4 mg DAILY PO Last administered on 09/16/16 09:30; Start 09/13/16 at 09:00 Warfarin Sodium (Coumadin) 2.5 mg DAILY16 PO Last administered on 09/14/16 16: 05; Start 09/13/16 at 16:00; Stop 09/15/16 at 15:03; Status DC Multivitamins/ Calcium (Thera-M Plus) 1 tab DAILY PO Last administered on 09:30; Start 09/13/16 at 09:00 Warfarin Sodium (Coumadin) 2 mg DAILY16 PO Last administered on 09/14/16 16:06 ; Start 09/13/16 at 16:00; Stop 09/15/16 at 15:02; Status DC Warfarin Sodium (Coumadin Per Pharmacy) 1 each PRN DAILY PRN MC SEE COMMENTS Last administered on 09/16/16 09:44; Start 09/13/16 at 03:15 Vitamin D (Vitamin D3) 50,000 unit WEEKLY PO Last administered on 09/14/16 07: 43; Start 09/14/16 at 09:00 Selegiline HCl (Eldepryl) 5 mg DAILY PO Last administered on 09/16/16 09:30; Start 09/14/16 at 09:00 Trazodone HCl (Desyrel) 50 mg PRN QHS PRN PO INSOMNIA, SEPTEMBER REPEAT X1; Start 04/21 at 19:15 Nystatin (Nystop) 1 wilfredo BID TP Last administered on 09/16/16 19:32; Start at 09:00 Nystatin (Nystop) 30 wilfredo STK-MED ONCE TP Last administered on 09/14/16 21:27; Start 09/14/16 at 21:27; Stop 09/14/16 at 21:28; Status DC Warfarin Sodium (Coumadin) 3 mg 1X WARF ONCE PO Last administered on 15:48; Start 09/15/16 at 16:00; Stop 09/15/16 at 16:01; Status DC Warfarin Sodium (Coumadin) 2.5 mg 1X ONCE PO Last administered on 09/15/16 15 :47; Start 09/15/16 at 15:15; Stop 09/15/16 at 15:17; Status DC Warfarin Sodium (Coumadin) 5 mg 1X WARF ONCE PO Last administered on 18:16; Start 09/16/16 at 16:00; Stop 09/16/16 at 16:01; Status DC Active Scripts Active Reported Therems-M (Multiv, W-Fe,Other Min) 1 Each Tablet 1 Each PO DAILY Tamsulosin Hcl 0.4 Mg Cap.er.24h 0.4 Mg PO DAILY Lisinopril 5 Mg Tablet 5 Mg PO DAILY Famotidine 20 Mg Tablet 20 Mg PO DAILY Emsam (Selegiline) 1 Each Patch.td24 1 Each TD DAILY Aspirin 81 Mg Tab.chew 81 Mg PO DAILY Amiodarone Hcl 200 Mg Tablet 100 Mg PO DAILY Depakote (Divalproex Sodium) 250 Mg Tablet.dr 250 Mg PO BID Coumadin (Warfarin Sodium) 4 Mg Tablet 4.5 Mg PO DAILY Ativan (Lorazepam) 0.5 Mg Tablet 0.5 Mg PO PRN BID PRN Imodium A-D (Loperamide HCl) 2 Mg Capsule 2 Mg PO PRN PRN MDD 12 mg Ativan (Lorazepam) 1 Mg Tablet 1 Mg PO BID Buspirone Hcl 7.5 Mg Tablet 7.5 Mg PO BID LINDSAY BROWN MD September 16, 2016 20:10
--- NOTE | 2016-09-16 22:32 | NUR ---
Behavior Intervention Response and Plan: BIRP Note: Behavior: Assumed Care of patient, patient located in Day Room at shift change. Patient exhibited the following behavior Interactive, Calm, Able to Focus on Task. Brief assessment on rounds of vital signs, medication needs, lab studies, and pain. Treatment plan problems:1-2 Intervention: Patient assessed and the following interventions initiated safety checks 15 Minute Checks Cognitive Assessment , Head to toe Assessment , Medications. Response: After interactions and interventions patient responded in the following manner, Disorganized , Compliant ,Cooperative. Continue to assess behaviors and condition will continue to monitor throughout the shift as needed. 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 Continue to assess patient for changes in above assessment. Monitor for medication needs, pain, and safety concerns. Hourly rounding performed to ensure safe environment.
[2016-09-17] MEDS: traZODone 50 MG TABLET. PO PRN ×2 (00:43→02:54)
[2016-09-17 06:35] VITALS: BP 118/50
[2016-09-17 06:39] LABS: BASO # 0.1 x10^3/uL (0.0-0.2); BASO % 1 % (0-3); EOS # 0.3 x10^3/uL (0.0-0.7); EOS % 4 % (0-3); HEMATOCRIT 38.8 % (39.0-53.0); HEMOGLOBIN 12.7 g/dL (13.0-17.5); LYMPH # 2.2 x10^3/uL (1.0-4.8); LYMPH % 29 % (24-48); MEAN CORPUSCULAR HEMOGLOBIN 29 pg (25-35); MEAN CORPUSCULAR HGB CONC 33 g/dL (31-37); MEAN CORPUSCULAR VOLUME 87 fL (79-100); MONO # 0.7 x10^3/uL (0.0-1.1); MONO % 9 % (0-9); NEUT # 4.4 x10^3uL (1.8-7.7); NEUT % 57 % (31-73); PLATELET COUNT 189 x10^3/uL (140-400); RED BLOOD COUNT 4.44 x10^6/uL (4.30-5.70); RED CELL DISTRIBUTION WIDTH 15.2 % (11.5-14.5); WHITE BLOOD COUNT 7.7 x10^3/uL (4.0-11.0)
[2016-09-17 06:53] LABS: ALBUMIN 3.5 g/dL (3.4-5.0); ALBUMIN/GLOBULIN RATIO 0.9 (1.0-1.7); ALK PHOS 54 U/L (46-116); ALT (SGPT) 22 U/L (16-63); ANION GAP 13 (6-14); AST (SGOT) 21 U/L (15-37); BLOOD UREA NITROGEN 20 mg/dL (8-26); BUN/CREATININE RATIO 17 (6-20); CALCIUM 8.7 mg/dL (8.5-10.1); CARBON DIOXIDE 22 mmol/L (21-32); CHLORIDE 108 mmol/L (98-107); CREATININE 1.2 mg/dL (0.7-1.3); GFR 59.2; GLUCOSE 98 mg/dL (70-99); POTASSIUM 4.2 mmol/L (3.5-5.1); SODIUM 143 mmol/L (136-145); TOTAL BILIRUBIN 0.9 mg/dL (0.2-1.0); TOTAL PROTEIN 7.5 g/dL (6.4-8.2)
[2016-09-17 06:54] LABS: VAL ACID 39 mcg/mL (50-100)
[2016-09-17] MEDS: DIVALPROEX SODIUM 250 MG TABLET.DR. PO SCH ×2 (08:48→20:15)
[2016-09-17] MEDS: FAMOTIDINE 20 MG TABLET PO SCH (08:48)
[2016-09-17] MEDS: TAMSULOSIN 0.4 MG CAP.ER.24H. PO SCH (08:48)
[2016-09-17] MEDS: LORazepam 1 MG TABLET PO SCH ×2 (08:49→20:15)
[2016-09-17] MEDS: busPIRone 15 MG TABLET. PO SCH ×2 (08:49→20:16)
[2016-09-17] MEDS: MULTIVITAMIN with MINERAL TABLET. PO SCH (08:49)
[2016-09-17] MEDS: ASPIRIN 81 MG TAB.CHEW PO SCH (08:49)
[2016-09-17] MEDS: SELEGILINE 5 MG PO SCH (08:52)
[2016-09-17] MEDS: AMIODARONE HCL 200 MG TABLET PO SCH (08:52)
[2016-09-17] MEDS: LISINOPRIL 5 MG TABLET. PO SCH (08:53)
[2016-09-17] MEDS: NYSTATIN TOPICAL POWDER 30GM BOTTLE. TP SCH ×2 (08:55→20:19)
--- NOTE | 2016-09-17 10:04 | NUR ---
Pharmacy Warfarin Dosing Note S:Pharmacy consulted to assist with anticoagulation therapy started 09/13/16 with target INR: 2 -3 O:ABBEY MATHIS is a 76 year old M with Stroke LABS: Last INR: 3.0 Last HGB: 12.7 Last HCT: 38.8 Last PLT: 189 Last dose of 5 mg given on 09/16/16 at 1816 Previous Regimen: 4.5MG DAILY Vitamin K given: N Drug Interaction Changes: Same Interacting Drug Ongoing Drug Interactions: AMIODARONE A:INR Within desired Range. Target Range for this patient is: 2 -3 P: Warfarin dose: 4.5 Today at 1600 Bridge Therapy: None Next INR due 09/18 0600 Pharmacy anticoagulation service will continue to follow. YAHAIRA SPEAR, 09/17/16 100
--- NOTE | 2016-09-17 10:30 | NUR ---
Attempted to meet and complete Activity Therapy Assessment; however, Pt. was sleeping. Will attempt again later today or tomorrow.
--- NOTE | 2016-09-17 10:38 | NUR ---
Behavior Intervention Response and Plan: BIRP Note: Behavior: Assumed Care of patient, patient located in Dining Room at shift change. Patient exhibited the following behavior Interactive, Calm, Compliant. Brief assessment on rounds of vital signs, medication needs, lab studies, and pain. Treatment plan problems . Intervention: Patient assessed and the following interventions initiated safety checks 15 Minute Checks Cognitive Assessment , Head to toe Assessment , Medications. Response: After interactions and interventions patient responded in the following manner, Calm , Compliant ,Cooperative. Continue to assess behaviors and condition will continue to monitor throughout the shift as needed. Plan: Continue to monitor Master Treatment Plan for patient's progress toward short term goals of Decreased Agitation, Decreased Aggression, detention goals to return to previous living setting vs placement. Continue to assess patient for changes in above assessment. Monitor for medication needs, pain, and safety concerns. Hourly rounding performed to ensure safe environment.
--- NOTE | 2016-09-17 11:10 | NUR ---
THERAPEUTIC RECREATION GROUP NOTE TITLE :Q & A with yarn and noodles ACTIVITY : Reminiscing Activity GOAL : Increase socialization, gain perspective, elevate mood, stimulate memory, increase fine motor functioning DURATION : 40 Minutes RESPONSE : No participation.
--- NOTE | 2016-09-17 13:20 | NUR ---
Attempted to meet and complete Activity Therapy Assessment; however, Pt. was sleeping. Will attempt again tomorrow.
--- NOTE | 2016-09-17 15:30 | NUR ---
THERAPEUTIC RECREATION GROUP NOTE TITLE :Karaoke ACTIVITY : Music GOAL : Increase socialization, elevate mood, stimulate memory DURATION : 90 Minutes RESPONSE : Moderate participation. Pt. sat with the group the entire time. He occasionally sang along with songs and needed encouragement to dance. He gave compliments to singers and applauded there efforts. He had a smile on his face the entire time.
[2016-09-17] MEDS ORDERED: WARFARIN 2.5 MG TABLET. PO ONE (16:00)
[2016-09-17] MEDS ORDERED: WARFARIN 2 MG TABLET. PO ONE (16:00)
[2016-09-17 16:13] VITALS: BP 125/72
--- NOTE | 2016-09-17 20:37 | NUR ---
Behavior Intervention Response and Plan: BIRP Note: Behavior: Assumed Care of patient, patient located in Day Room at shift change. Patient exhibited the following behavior , Restless, Disorganized. Brief assessment on rounds of vital signs, medication needs, lab studies, and pain. Treatment plan problems . Intervention: Patient assessed and the following interventions initiated safety checks 15 Minute Checks Head to toe Assessment , Cognitive Assessment , Medications. Response: After interactions and interventions patient responded in the following manner, Resistive , Non Compliant with Meds ,Disorganized. Continue to assess behaviors and condition will continue to monitor throughout the shift as needed. Plan: Continue to monitor Master Treatment Plan for patient's progress toward short term goals of Medication Compliance, Decreased Anxiety, terminal operations manager goals to return to previous living setting vs placement. Continue to assess patient for changes in above assessment. Monitor for medication needs, pain, and safety concerns. Hourly rounding performed to ensure safe environment.
--- NOTE | 2016-09-17 21:06 | PDOC ---
Exam Blake Demential Exam: Blake Note: Please also refer to the separate dictated note~for this date of service dictated separately.~Patient seen individually. Discussed the patient with Nursing staff reviewed the chart.~Reviewed interim history and current functioning. Reviewed vital signs,~Labs/ Radiology~and current medications noted below. Continue current treatment with the changes noted in the dictated addendum note Assessment: Vital Signs: Vital Signs Date Time Temp Pulse Resp B/P (MAP) Pulse Ox O2 Delivery O2 Flow Rate FiO2 09/17/16 16:13 98.0 104 20 125/72 (89) 97 Room Air 09/12/16 17:18 95.0 I&O Intake and Output 09/17/16 07:00 Intake Total 1080 ml Balance 1080 ml Intake Oral 1080 ml Labs: Laboratory Tests Test 09/17/16 06:29 White Blood Count 7.7 x10^3/uL (4.0-11.0) Red Blood Count 4.44 x10^6/uL (4.30-5.70) Hemoglobin 12.7 g/dL (13.0-17.5) L Hematocrit 38.8 % (39.0-53.0) L Mean Corpuscular Volume 87 fL (79-100) Mean Corpuscular Hemoglobin 29 pg (25-35) Mean Corpuscular Hemoglobin Concent 33 g/dL (31-37) Red Cell Distribution Width 15.2 % (11.5-14.5) H Platelet Count 189 x10^3/uL (140-400) Neutrophils (%) (Auto) 57 % (31-73) Lymphocytes (%) (Auto) 29 % (24-48) Monocytes (%) (Auto) 9 % (0-9) Eosinophils (%) (Auto) 4 % (0-3) H Basophils (%) (Auto) 1 % (0-3) Neutrophils # (Auto) 4.4 x10^3uL (1.8-7.7) Lymphocytes # (Auto) 2.2 x10^3/uL (1.0-4.8) Monocytes # (Auto) 0.7 x10^3/uL (0.0-1.1) Eosinophils # (Auto) 0.3 x10^3/uL (0.0-0.7) Basophils # (Auto) 0.1 x10^3/uL (0.0-0.2) Prothrombin Time 31.2 SEC (9.4-11.4) H Prothrombin Time INR 3.0 (0.9-1.1) H Sodium Level 143 mmol/L (136-145) Potassium Level 4.2 mmol/L (3.5-5.1) Chloride Level 108 mmol/L (98-107) H Carbon Dioxide Level 22 mmol/L (21-32) Anion Gap 13 (6-14) Blood Urea Nitrogen 20 mg/dL (8-26) Creatinine 1.2 mg/dL (0.7-1.3) Estimated GFR (Cockcroft-Gault) 59.2 BUN/Creatinine Ratio 17 (6-20) Glucose Level 98 mg/dL (70-99) Calcium Level 8.7 mg/dL (8.5-10.1) Total Bilirubin 0.9 mg/dL (0.2-1.0) Aspartate Amino Transferase (AST) 21 U/L (15-37) Alanine Aminotransferase (ALT) 22 U/L (16-63) Alkaline Phosphatase 54 U/L (46-116) Total Protein 7.5 g/dL (6.4-8.2) Albumin 3.5 g/dL (3.4-5.0) Albumin/Globulin Ratio 0.9 (1.0-1.7) L Valproic Acid Level 39 mcg/mL (50-100) L Valproic Acid Last Dose Date 09/16/2016 Valproic Acid Last Dose Time 2100 Current Medications: Meds: Current Medications Acetaminophen (Tylenol) 650 mg PRN Q6HRS PRN PO PAIN / TEMP Last administered on 09/15/16 20:02; Start 09/12/16 at 19:15 Multi-Ingredient Ointment (Analgesic [place]) 1 wilfredo PRN QID PRN TP MUSCLE PAIN; Start 09/12/16 at 19:15 Al Hydroxide/Mg Hydroxide (Mylanta Plus Xs) 15 ml PRN AFTMEALHC PRN PO DYSPEPSIA; Start 09/12/16 at 19:15 Magnesium Hydroxide (Milk Of Magnesia) 2,400 mg PRN QHS PRN PO CONSTIPATION; Start 09/12/16 at 19:15 Divalproex Sodium (Depakote) 250 mg BID PO Last administered on 09/17/16 20:15 ; Start 09/12/16 at 21:00 Lorazepam (Ativan) 0.5 mg PRN BID PRN PO ANXIETY / AGITATION Last administered on 09/14/16 01:11; Start 09/12/16 at 19:45 Lorazepam (Ativan) 1 mg BID PO Last administered on 09/17/16 08:49; Start 02/19 at 21:00; Stop 09/17/16 at 18:05; Status DC Selegiline HCl (Emsam) 1 patch DAILY TD ; Start 09/13/16 at 09:00; Stop at 18:35; Status DC Buspirone HCl (Buspar) 7.5 mg BID PO Last administered on 09/17/16 20:16; Start 09/12/16 at 21:00 Amiodarone HCl (Cordarone) 100 mg DAILY PO Last administered on 09/16/16 09:31 ; Start 09/13/16 at 09:00 Aspirin (Children'S Aspirin) 81 mg DAILY PO Last administered on 09/17/16 08: 49; Start 09/13/16 at 09:00 Famotidine (Pepcid) 20 mg DAILY PO Last administered on 09/17/16 08:48; Start 09/13/16 at 09:00 Lisinopril (Prinivil) 5 mg DAILY PO Last administered on 09/16/16 09:32; Start 09/13/16 at 09:00 Loperamide HCl (Imodium) 2 mg PRN Q4HRS PRN PO DIARRHEA; Start 09/12/16 at 19: 45 Tamsulosin HCl (Flomax) 0.4 mg DAILY PO Last administered on 09/17/16 08:48; Start 09/13/16 at 09:00 Warfarin Sodium (Coumadin) 2.5 mg DAILY16 PO Last administered on 09/14/16 16: 05; Start 09/13/16 at 16:00; Stop 09/15/16 at 15:03; Status DC Multivitamins/ Calcium (Thera-M Plus) 1 tab DAILY PO Last administered on 08:49; Start 09/13/16 at 09:00 Warfarin Sodium (Coumadin) 2 mg DAILY16 PO Last administered on 09/14/16 16:06 ; Start 09/13/16 at 16:00; Stop 09/15/16 at 15:02; Status DC Warfarin Sodium (Coumadin Per Pharmacy) 1 each PRN DAILY PRN MC SEE COMMENTS Last administered on 09/17/16 10:04; Start 09/13/16 at 03:15 Vitamin D (Vitamin D3) 50,000 unit WEEKLY PO Last administered on 09/14/16 07: 43; Start 09/14/16 at 09:00 Selegiline HCl (Eldepryl) 5 mg DAILY PO Last administered on 09/17/16 08:52; Start 09/14/16 at 09:00 Trazodone HCl (Desyrel) 50 mg PRN QHS PRN PO INSOMNIA, MAY REPEAT X1; Start 04/21 at 19:15 Nystatin (Nystop) 1 wilfredo BID TP Last administered on 09/17/16 20:19; Start at 09:00 Nystatin (Nystop) 30 wilfredo STK-MED ONCE TP Last administered on 09/14/16 21:27; Start 09/14/16 at 21:27; Stop 09/14/16 at 21:28; Status DC Warfarin Sodium (Coumadin) 3 mg 1X WARF ONCE PO Last administered on 15:48; Start 09/15/16 at 16:00; Stop 09/15/16 at 16:01; Status DC Warfarin Sodium (Coumadin) 2.5 mg 1X ONCE PO Last administered on 09/15/16 15 :47; Start 09/15/16 at 15:15; Stop 09/15/16 at 15:17; Status DC Warfarin Sodium (Coumadin) 5 mg 1X WARF ONCE PO Last administered on 18:16; Start 09/16/16 at 16:00; Stop 09/16/16 at 16:01; Status DC Warfarin Sodium (Coumadin) 2 mg 1X WARF ONCE PO Last administered on 16:02; Start 09/17/16 at 16:00; Stop 09/17/16 at 16:01; Status DC Warfarin Sodium (Coumadin) 2.5 mg 1X WARF ONCE PO Last administered on 16:03; Start 09/17/16 at 16:00; Stop 09/17/16 at 16:01; Status DC Lorazepam (Ativan) 0.5 mg TID PO Last administered on 09/17/16t 20:15; Start at 21:00; Stop 09/20/16 at 21:00 Lorazepam (Ativan) 0.5 mg BID PO ; Start 09/21/16 at 09:00; Stop 09/24/16 at 21: 00 Lorazepam (Ativan) 0.5 mg DAILY PO ; Start 09/25/16 at 09:00; Stop 09/28/16 at 21:00 Active Scripts Active Reported Therems-M (Multivits,Th W-Fe,Other Min) 1 Each Tablet 1 Each PO DAILY Tamsulosin Hcl 0.4 Mg Cap.er.24h 0.4 Mg PO DAILY Lisinopril 5 Mg Tablet 5 Mg PO DAILY Famotidine 20 Mg Tablet 20 Mg PO DAILY Emsam (Selegiline) 1 Each Patch.td24 1 Each TD DAILY Aspirin 81 Mg Tab.chew 81 Mg PO DAILY Amiodarone Hcl 200 Mg Tablet 100 Mg PO DAILY Depakote (Divalproex Sodium) 250 Mg Tablet.dr 250 Mg PO BID Coumadin (Warfarin Sodium) 4 Mg Tablet 4.5 Mg PO DAILY Ativan (Lorazepam) 0.5 Mg Tablet 0.5 Mg PO PRN BID PRN Imodium A-D (Loperamide HCl) 2 Mg Capsule 2 Mg PO PRN PRN MDD 12 mg Ativan (Lorazepam) 1 Mg Tablet 1 Mg PO BID Buspirone Hcl 7.5 Mg Tablet 7.5 Mg PO BID LINDSAY BROWN MD September 17, 2016 21:06
--- NOTE | 2016-09-18 01:11 | PN ---
DATE: 09/15/2016 PSYCHIATRIC PROGRESS NOTE This is late entry of 09/15/2016, covers elements not covered in my initial note. SUBJECTIVE: The patient remains confused, withdrawn, looking for cows, talking about having to go play football in the state playoffs when sitting outside, pleasant and compliant, restless in the morning, enjoyed music therapy. REVIEW OF SYSTEMS: No CV, , eye, ENT or pulmonary system symptoms on review. Reliability poor. MENTAL STATUS EXAMINATION: Oriented to himself. Insight, judgment, recent and remote memory, attention, concentration, fund of knowledge poor, consistent with his diagnosis mentioned in my initial note. PLAN: Continue psychotropics mentioned in my initial note. We will consider reducing and tapering the Ativan, adjusting the rest of the psychotropics as clinically indicated. MAN Phoenix BROWN MD DR: JEREL/tavo JOB#: [id number] / [id number]
--- NOTE | 2016-09-18 01:14 | PN ---
DATE: 09/16/2016 This is a late entry for 09/16/2016 covers elements not covered in the initial note. SUBJECTIVE: The patient remains confused and had a good morning, compliant with medications. PT/INR increased. Deferred to Dr. Mcdaniels. REVIEW OF SYSTEMS: No CV, , eye, ENT, pulmonary system symptoms on review. Reliability poor. MENTAL STATUS EXAM: Oriented to himself. Insight, judgment, recent and remote memory, attention, concentration, fund of knowledge poor, consistent with his diagnosis mentioned in my initial report. Valproic acid level 28. PLAN: Continue current psychotropics mentioned in my initial note. Check CBC, CMP, valproic acid level in morning of 09/17/2016 and then adjust further as clinically indicated. MAN Phoenix BROWN MD DR: JEREL/tavo JOB#: [id number] / [id number]
[2016-09-18 06:02] VITALS: BP 129/86
[2016-09-18] MEDS: DIVALPROEX SODIUM 250 MG TABLET.DR. PO SCH ×2 (08:28→19:47)
[2016-09-18] MEDS: LISINOPRIL 5 MG TABLET. PO SCH (08:28)
[2016-09-18] MEDS: FAMOTIDINE 20 MG TABLET PO SCH (08:28)
[2016-09-18] MEDS: TAMSULOSIN 0.4 MG CAP.ER.24H. PO SCH (08:28)
[2016-09-18] MEDS: ASPIRIN 81 MG TAB.CHEW PO SCH (08:29)
[2016-09-18] MEDS: AMIODARONE HCL 200 MG TABLET PO SCH (08:29)
[2016-09-18] MEDS: NYSTATIN TOPICAL POWDER 30GM BOTTLE. TP SCH ×2 (08:30→19:47)
[2016-09-18] MEDS: MULTIVITAMIN with MINERAL TABLET. PO SCH (08:30)
[2016-09-18] MEDS: busPIRone 15 MG TABLET. PO SCH ×2 (08:30→19:47)
[2016-09-18] MEDS: LORazepam 1 MG TABLET PO SCH ×3 (08:32→19:47)
[2016-09-18] MEDS: SELEGILINE 5 MG PO SCH (08:32)
--- NOTE | 2016-09-18 09:33 | NUR ---
Behavior Intervention Response and Plan: BIRP Note: Behavior: Assumed Care of patient, patient located in Dining Room at shift change. Patient exhibited the following behavior Calm, Withdrawn, Compliant. Brief assessment on rounds of vital signs, medication needs, lab studies, and pain. Treatment plan problems 1 and 2. Intervention: Patient assessed and the following interventions initiated safety checks 15 Minute Checks Cognitive Assessment , Head to toe Assessment , Medications. Response: After interactions and interventions patient responded in the following manner, Calm , Appropriate ,Cooperative. Continue to assess behaviors and condition will continue to monitor throughout the shift as needed. Plan: Continue to monitor Master Treatment Plan for patient's progress toward short term goals of Decreased Agitation, Medication Compliance, exterminator termite goals to return to previous living setting vs placement. Continue to assess patient for changes in above assessment. Monitor for medication needs, pain, and safety concerns. Hourly rounding performed to ensure safe environment.
--- NOTE | 2016-09-18 13:40 | NUR ---
Pharmacy Warfarin Dosing Note S:Pharmacy consulted to assist with anticoagulation therapy started 09/13/16 with target INR: 2 -3 O:ABBEY MATHIS is a 76 year old M with Stroke LABS: Last INR: 2.8 Last HGB: 12.7 Last HCT: 38.8 Last PLT: 189 Last dose of 4.5MG given on 09/17/16 at 1600 Previous Regimen: 4.5MG HOME WARFARIN DOSE Vitamin K given: N Drug Interaction Changes: Same Interacting Drug Ongoing Drug Interactions: AMIODARONE A:INR Within desired Range. Target Range for this patient is: 2 -3 P: Warfarin dose: 4.5MG Today at 1600 Bridge Therapy: None Next INR due 09/19/16 @0600 Pharmacy anticoagulation service will continue to follow. [facility], 09/18/16 [id number]
--- NOTE | 2016-09-18 14:00 | NUR ---
THERAPEUTIC RECREATION GROUP NOTE TITLE :Dance and Sing along with Deidra ACTIVITY : Music GOAL : Increase socialization, elevate mood, stimulate memory DURATION : 60 Minutes RESPONSE : Moderate participation. Pt. sat with the group and laughed the entire time. He occasionally tapped foot along with the beat but did not sing.
[2016-09-18 15:58] VITALS: BP 133/99
[2016-09-18] MEDS ORDERED: WARFARIN 2.5 MG TABLET. PO ONE (16:00)
[2016-09-18] MEDS ORDERED: WARFARIN 2 MG TABLET. PO ONE (16:00)
--- NOTE | 2016-09-18 16:10 | NUR ---
ACTIVITY THERAPY ASSESSMENT Completed based on observations and interview on this day at this time in the day room. TRANSIT SPECIALIST introduced herself and Pt. immediately asked about his , Dana and was confused about where she was and why she left him here. Pt. 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 Pt. dropped his head and kept his eyes closed the entire conversation. When asked where he was, Pt. [facility]. Pt. will stay around group and participate minimally to moderately; however, he reported he likes to be alone most of the time. Pt. continued to be confused about interview questions and how they related to his . Initial goal: Pt. will participate in at least one group a day.
--- NOTE | 2016-09-18 16:23 | NUR ---
SW had a casual conversation w/Pt. while in the day room. Pt. was approachable and in a joking mood. 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 Pt. did ask about his , but was easily redirected.
--- NOTE | 2016-09-18 20:45 | NUR ---
Behavior Intervention Response and Plan: BIRP Note: Behavior: Assumed Care of patient, patient located in Patient Room at shift change. Patient exhibited the following behavior Calm, Able to Focus on Task, Interactive. Brief assessment on rounds of vital signs, medication needs, lab studies, and pain. Treatment plan problems . Intervention: Patient assessed and the following interventions initiated safety checks 15 Minute Checks Cognitive Assessment , Head to toe Assessment , Medications. Response: After interactions and interventions patient responded in the following manner, Appropriate , Compliant ,Cooperative. Continue to assess behaviors and condition will continue to monitor throughout the shift as needed. 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 Continue to assess patient for changes in above assessment. Monitor for medication needs, pain, and safety concerns. Hourly rounding performed to ensure safe environment.
--- NOTE | 2016-09-18 21:08 | PDOC ---
Exam Blake Demential Exam: Blake Note: Please also refer to the separate dictated note~for this date of service dictated separately.~Patient seen individually. Discussed the patient with Nursing staff reviewed the chart.~Reviewed interim history and current functioning. Reviewed vital signs,~Labs/ Radiology~and current medications noted below. Continue current treatment with the changes noted in the dictated addendum note Assessment: Vital Signs: Vital Signs Date Time Temp Pulse Resp B/P (MAP) Pulse Ox O2 Delivery O2 Flow Rate FiO2 09/18/16 15:58 97.2 92 18 133/99 (110) 100 09/17/16 16:13 Room Air 09/12/16 17:18 95.0 I&O Intake and Output 09/18/16 07:00 Intake Total 840 ml Balance 840 ml Intake Oral 840 ml Labs: Laboratory Tests Test 09/18/16 07:17 Prothrombin Time 29.1 SEC (9.4-11.4) H Prothrombin Time INR 2.8 (0.9-1.1) H Current Medications: Meds: Current Medications Acetaminophen (Tylenol) 650 mg PRN Q6HRS PRN PO PAIN / TEMP Last administered on 09/15/16 20:02; Start 09/12/16 at 19:15 Multi-Ingredient Ointment (Analgesic [place]) 1 wilfredo PRN QID PRN TP MUSCLE PAIN; Start 09/12/16 at 19:15 Al Hydroxide/Mg Hydroxide (Mylanta Plus Xs) 15 ml PRN AFTMEALHC PRN PO DYSPEPSIA; Start 09/12/16 at 19:15 Magnesium Hydroxide (Milk Of Magnesia) 2,400 mg PRN QHS PRN PO CONSTIPATION; Start 09/12/16 at 19:15 Divalproex Sodium (Depakote) 250 mg BID PO Last administered on 09/18/16 19:47 ; Start 09/12/16 at 21:00 Lorazepam (Ativan) 0.5 mg PRN BID PRN PO ANXIETY / AGITATION Last administered on 09/14/16 01:11; Start 09/12/16 at 19:45 Lorazepam (Ativan) 1 mg BID PO Last administered on 09/17/16 08:49; Start 02/19 at 21:00; Stop 09/17/16 at 18:05; Status DC Selegiline HCl (Emsam) 1 patch DAILY TD ; Start 09/13/16 at 09:00; Stop at 18:35; Status DC Buspirone HCl (Buspar) 7.5 mg BID PO Last administered on 09/18/16 19:47; Start 09/12/16 at 21:00 Amiodarone HCl (Cordarone) 100 mg DAILY PO Last administered on 09/18/16 08:29 ; Start 09/13/16 at 09:00 Aspirin (Children'S Aspirin) 81 mg DAILY PO Last administered on 09/18/16 08: 29; Start 09/13/16 at 09:00 Famotidine (Pepcid) 20 mg DAILY PO Last administered on 09/18/16 08:28; Start 09/13/16 at 09:00 Lisinopril (Prinivil) 5 mg DAILY PO Last administered on 09/18/16 08:28; Start 09/13/16 at 09:00 Loperamide HCl (Imodium) 2 mg PRN Q4HRS PRN PO DIARRHEA; Start 09/12/16 at 19: 45 Tamsulosin HCl (Flomax) 0.4 mg DAILY PO Last administered on 09/18/16 08:28; Start 09/13/16 at 09:00 Warfarin Sodium (Coumadin) 2.5 mg DAILY16 PO Last administered on 09/14/16 16: 05; Start 09/13/16 at 16:00; Stop 09/15/16 at 15:03; Status DC Multivitamins/ Calcium (Thera-M Plus) 1 tab DAILY PO Last administered on 08:30; Start 09/13/16 at 09:00 Warfarin Sodium (Coumadin) 2 mg DAILY16 PO Last administered on 09/14/16 16:06 ; Start 09/13/16 at 16:00; Stop 09/15/16 at 15:02; Status DC Warfarin Sodium (Coumadin Per Pharmacy) 1 each PRN DAILY PRN MC SEE COMMENTS Last administered on 09/18/16 13:40; Start 09/13/16 at 03:15 Vitamin D (Vitamin D3) 50,000 unit WEEKLY PO Last administered on 09/14/16 07: 43; Start 09/14/16 at 09:00 Selegiline HCl (Eldepryl) 5 mg DAILY PO Last administered on 09/18/16 08:32; Start 09/14/16 at 09:00 Trazodone HCl (Desyrel) 50 mg PRN QHS PRN PO INSOMNIA, MAY REPEAT X1; Start 04/21 at 19:15 Nystatin (Nystop) 1 wilfredo BID TP Last administered on 09/18/16 19:47; Start at 09:00 Nystatin (Nystop) 30 wilfredo STK-MED ONCE TP Last administered on 09/14/16 21:27; Start 09/14/16 at 21:27; Stop 09/14/16 at 21:28; Status DC Warfarin Sodium (Coumadin) 3 mg 1X WARF ONCE PO Last administered on 15:48; Start 09/15/16 at 16:00; Stop 09/15/16 at 16:01; Status DC Warfarin Sodium (Coumadin) 2.5 mg 1X ONCE PO Last administered on 09/15/16 15 :47; Start 09/15/16 at 15:15; Stop 09/15/16 at 15:17; Status DC Warfarin Sodium (Coumadin) 5 mg 1X WARF ONCE PO Last administered on 18:16; Start 09/16/16 at 16:00; Stop 09/16/16 at 16:01; Status DC Warfarin Sodium (Coumadin) 2 mg 1X WARF ONCE PO Last administered on 16:02; Start 09/17/16 at 16:00; Stop 09/17/16 at 16:01; Status DC Warfarin Sodium (Coumadin) 2.5 mg 1X WARF ONCE PO Last administered on 16:03; Start 09/17/16 at 16:00; Stop 09/17/16 at 16:01; Status DC Lorazepam (Ativan) 0.5 mg TID PO Last administered on 09/18/16 19:47; Start at 21:00; Stop 09/20/16 at 21:00 Lorazepam (Ativan) 0.5 mg BID PO ; Start 09/21/16 at 09:00; Stop 09/24/16 at 21: 00 Lorazepam (Ativan) 0.5 mg DAILY PO ; Start 09/25/16 at 09:00; Stop 09/28/16 at 21:00 Warfarin Sodium (Coumadin) 2.5 mg 1X WARF ONCE PO Last administered on 14:58; Start 09/18/16 at 16:00; Stop 09/18/16 at 16:01; Status DC Warfarin Sodium (Coumadin) 2 mg 1X WARF ONCE PO Last administered on 14:59; Start 09/18/16 at 16:00; Stop 09/18/16 at 16:01; Status DC Sertraline HCl (Zoloft) 25 mg DAILY PO ; Start 09/19/16 at 09:00 Active Scripts Active Reported Therems-M (Multivits,Th W-Fe,Other Min) 1 Each Tablet 1 Each PO DAILY Tamsulosin Hcl 0.4 Mg Cap.er.24h 0.4 Mg PO DAILY Lisinopril 5 Mg Tablet 5 Mg PO DAILY Famotidine 20 Mg Tablet 20 Mg PO DAILY Emsam (Selegiline) 1 Each Patch.td24 1 Each TD DAILY Aspirin 81 Mg Tab.chew 81 Mg PO DAILY Amiodarone Hcl 200 Mg Tablet 100 Mg PO DAILY Depakote (Divalproex Sodium) 250 Mg Tablet.dr 250 Mg PO BID Coumadin (Warfarin Sodium) 4 Mg Tablet 4.5 Mg PO DAILY Ativan (Lorazepam) 0.5 Mg Tablet 0.5 Mg PO PRN BID PRN Imodium A-D (Loperamide HCl) 2 Mg Capsule 2 Mg PO PRN PRN MDD 12 mg Ativan (Lorazepam) 1 Mg Tablet 1 Mg PO BID Buspirone Hcl 7.5 Mg Tablet 7.5 Mg PO BID LINDSYA BROWN MD September 18, 2016 21:08
--- NOTE | 2016-09-19 01:10 | PN ---
DATE: 09/17/2016 PSYCHIATRIC PROGRESS NOTE This is late entry of 09/17/2016, covers elements not covered in my initial note. SUBJECTIVE: The patient slept poorly since he refused the repeat trazodone, compliant with his medications. REVIEW OF SYSTEMS: No CV, , pulmonary, eye system symptoms on review. Reliability poor. MENTAL STATUS EXAMINATION: Oriented to himself. Insight, judgment, recent and remote memory, attention, concentration, fund of knowledge poor, consistent with his diagnosis mentioned in my initial note. PLAN: Taper and stop the Ativan, continue BuSpar, Depakote, selegiline and the trazodone for now. If anxiety resurfaces we may adjust the Depakote since level at last check on 09/17/2016 is 39 or we may need to increase the BuSpar. We will also start the patient on Zoloft 25 mg a day. MAN Phoenix BROWN MD DR: JEREL/tavo JOB#: [id number] / [id number]
[2016-09-19 06:18] VITALS: BP 125/87
[2016-09-19] MEDS: FAMOTIDINE 20 MG TABLET PO SCH (09:32)
[2016-09-19] MEDS: ASPIRIN 81 MG TAB.CHEW PO SCH (09:32)
[2016-09-19] MEDS: TAMSULOSIN 0.4 MG CAP.ER.24H. PO SCH (09:32)
[2016-09-19] MEDS: MULTIVITAMIN with MINERAL TABLET. PO SCH (09:32)
[2016-09-19] MEDS: LISINOPRIL 5 MG TABLET. PO SCH (09:33)
[2016-09-19] MEDS: AMIODARONE HCL 200 MG TABLET PO SCH (09:33)
[2016-09-19] MEDS: DIVALPROEX SODIUM 250 MG TABLET.DR. PO SCH ×2 (09:33→20:27)
[2016-09-19] MEDS: busPIRone 15 MG TABLET. PO SCH ×2 (09:34→20:27)
[2016-09-19] MEDS: SELEGILINE 5 MG PO SCH (09:34)
[2016-09-19] MEDS: NYSTATIN TOPICAL POWDER 30GM BOTTLE. TP SCH ×2 (09:48→20:31)
[2016-09-19] MEDS: SERTRALINE 25 MG TABLET. PO SCH (09:48)
[2016-09-19] MEDS: LORazepam 1 MG TABLET PO SCH ×3 (09:48→20:31)
--- NOTE | 2016-09-19 11:33 | NUR ---
Behavior Intervention Response and Plan: BIRP Note: Behavior: Assumed Care of patient, patient located in Patient Room at shift change. Patient exhibited the following behavior Withdrawn, Calm, Compliant. Brief assessment on rounds of vital signs, medication needs, lab studies, and pain. Treatment plan problems 1 and 2. Intervention: Patient assessed and the following interventions initiated safety checks 15 Minute Checks Cognitive Assessment , Medications , Oral Hydration. Response: After interactions and interventions patient responded in the following manner, Calm , Appropriate ,Cooperative. Continue to assess behaviors and condition will continue to monitor throughout the shift as needed. Plan: Continue to monitor Master Treatment Plan for patient's progress toward short term goals of Decreased Agitation, Decreased Aggression, care home goals to return to previous living setting vs placement. Continue to assess patient for changes in above assessment. Monitor for medication needs, pain, and safety concerns. Hourly rounding performed to ensure safe environment.
--- NOTE | 2016-09-19 11:37 | NUR ---
Pharmacy Warfarin Dosing Note S:Pharmacy consulted to assist with anticoagulation therapy started 09/13/16 with target INR: 2 -3 O:ABBEY MATHIS is a 76 year old M with Stroke LABS: Last INR: 3.3 Last HGB: 12.7 Last HCT: 38.8 Last PLT: 189 Last dose of 4.5MG given on 09/18/16 at 1459 Previous Regimen: 4.5MG HOME WARFARIN DOSE Vitamin K given: N Drug Interaction Changes: Same Interacting Drug Ongoing Drug Interactions: AMIODARONE (NOTE -Amiodarone held on 09/17) A:INR Above desired Range. Target Range for this patient is: 2 -3 P: Warfarin dose: Hold Today at 1600 Bridge Therapy: None Next INR due 09/20/16 Pharmacy anticoagulation service will continue to follow. YAHAIRA SPEAR, 09/19/16 [id number]
[2016-09-19 16:11] VITALS: BP 96/62
--- NOTE | 2016-09-19 20:21 | PN ---
DATE: 09/18/2016 PSYCHIATRIC PROGRESS NOTE This is late entry of 09/18/2016, covers elements not covered in my initial note. SUBJECTIVE: The patient is compliant with his medications. 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 REVIEW OF SYSTEMS: No CV, , pulmonary, eye, ENT system symptoms on review. Reliability poor. MENTAL STATUS EXAMINATION: Oriented to himself. Insight, judgment, recent and remote memory, attention, concentration, fund of knowledge poor, consistent with his diagnosis mentioned in my initial note. PLAN: Continue psychotropics mentioned in my initial note including Depakote 250 b.i.d., level is 39, subtherapeutic, but clinically adequate for now. Ativan is being tapered, BuSpar 7.5 b.i.d., selegiline 5 mg a day, trazodone 50 at bedtime and Zoloft 25 mg a day. We will adjust further as clinically indicated. MAN Phoenix BROWN MD DR: JEREL/tavo JOB#: [id number] / [id number]
--- NOTE | 2016-09-19 20:40 | PDOC ---
Exam Blake Demential Exam: Blake Note: Please also refer to the separate dictated note~for this date of service dictated separately.~Patient seen individually. Discussed the patient with Nursing staff reviewed the chart.~Reviewed interim history and current functioning. Reviewed vital signs,~Labs/ Radiology~and current medications noted below. Continue current treatment with the changes noted in the dictated addendum note Assessment: Vital Signs: Vital Signs Date Time Temp Pulse Resp B/P (MAP) Pulse Ox O2 Delivery O2 Flow Rate FiO2 09/19/16 16:11 97.6 95 18 96/62 (73) 94 09/19/16 06:18 95.0 09/17/16 16:13 Room Air I&O Intake and Output 09/19/16 07:00 Intake Total 1080 ml Balance 1080 ml Intake Oral 1080 ml Labs: Laboratory Tests Test 09/19/16 10:03 Prothrombin Time 33.5 SEC (9.4-11.4) H Prothrombin Time INR 3.3 (0.9-1.1) H Current Medications: Meds: Current Medications Acetaminophen (Tylenol) 650 mg PRN Q6HRS PRN PO PAIN / TEMP Last administered on 09/15/16 20:02; Start 09/12/16 at 19:15 Multi-Ingredient Ointment (Analgesic [place]) 1 wilfredo PRN QID PRN TP MUSCLE PAIN; Start 09/12/16 at 19:15 Al Hydroxide/Mg Hydroxide (Mylanta Plus Xs) 15 ml PRN AFTMEALHC PRN PO DYSPEPSIA; Start 09/12/16 at 19:15 Magnesium Hydroxide (Milk Of Magnesia) 2,400 mg PRN QHS PRN PO CONSTIPATION; Start 09/12/16 at 19:15 Divalproex Sodium (Depakote) 250 mg BID PO Last administered on 09/19/16 20:27 ; Start 09/12/16 at 21:00 Lorazepam (Ativan) 0.5 mg PRN BID PRN PO ANXIETY / AGITATION Last administered on 09/14/16 01:11; Start 09/12/16 at 19:45 Lorazepam (Ativan) 1 mg BID PO Last administered on 09/17/16 08:49; Start 02/19 at 21:00; Stop 09/17/16 at 18:05; Status DC Selegiline HCl (Emsam) 1 patch DAILY TD ; Start 09/13/16 at 09:00; Stop at 18:35; Status DC Buspirone HCl (Buspar) 7.5 mg BID PO Last administered on 09/19/16 20:27; Start 09/12/16 at 21:00 Amiodarone HCl (Cordarone) 100 mg DAILY PO Last administered on 09/19/16 09:33 ; Start 09/13/16 at 09:00 Aspirin (Children'S Aspirin) 81 mg DAILY PO Last administered on 09/19/16 09: 32; Start 09/13/16 at 09:00 Famotidine (Pepcid) 20 mg DAILY PO Last administered on 09/19/16 09:32; Start 09/13/16 at 09:00 Lisinopril (Prinivil) 5 mg DAILY PO Last administered on 09/19/16 09:33; Start 09/13/16 at 09:00 Loperamide HCl (Imodium) 2 mg PRN Q4HRS PRN PO DIARRHEA; Start 09/12/16 at 19: 45 Tamsulosin HCl (Flomax) 0.4 mg DAILY PO Last administered on 09/19/16 09:32; Start 09/13/16 at 09:00 Warfarin Sodium (Coumadin) 2.5 mg DAILY16 PO Last administered on 09/14/16 16: 05; Start 09/13/16 at 16:00; Stop 09/15/16 at 15:03; Status DC Multivitamins/ Calcium (Thera-M Plus) 1 tab DAILY PO Last administered on 09:32; Start 09/13/16 at 09:00 Warfarin Sodium (Coumadin) 2 mg DAILY16 PO Last administered on 09/14/16 16:06 ; Start 09/13/16 at 16:00; Stop 09/15/16 at 15:02; Status DC Warfarin Sodium (Coumadin Per Pharmacy) 1 each PRN DAILY PRN MC SEE COMMENTS Last administered on 09/19/16 11:37; Start 09/13/16 at 03:15 Vitamin D (Vitamin D3) 50,000 unit WEEKLY PO Last administered on 09/14/16 07: 43; Start 09/14/16 at 09:00 Selegiline HCl (Eldepryl) 5 mg DAILY PO Last administered on 09/19/16 09:34; Start 09/14/16 at 09:00 Trazodone HCl (Desyrel) 50 mg PRN QHS PRN PO INSOMNIA, MAY REPEAT X1; Start 04/21 at 19:15 Nystatin (Nystop) 1 wilfredo BID TP Last administered on 09/19/16 20:31; Start at 09:00 Nystatin (Nystop) 30 wilfredo STK-MED ONCE TP Last administered on 09/14/16 21:27; Start 09/14/16 at 21:27; Stop 09/14/16 at 21:28; Status DC Warfarin Sodium (Coumadin) 3 mg 1X WARF ONCE PO Last administered on 15:48; Start 09/15/16 at 16:00; Stop 09/15/16 at 16:01; Status DC Warfarin Sodium (Coumadin) 2.5 mg 1X ONCE PO Last administered on 09/15/16 15 :47; Start 09/15/16 at 15:15; Stop 09/15/16 at 15:17; Status DC Warfarin Sodium (Coumadin) 5 mg 1X WARF ONCE PO Last administered on 18:16; Start 09/16/16 at 16:00; Stop 09/16/16 at 16:01; Status DC Warfarin Sodium (Coumadin) 2 mg 1X WARF ONCE PO Last administered on 16:02; Start 09/17/16 at 16:00; Stop 09/17/16 at 16:01; Status DC Warfarin Sodium (Coumadin) 2.5 mg 1X WARF ONCE PO Last administered on 16:03; Start 09/17/16 at 16:00; Stop 09/17/16 at 16:01; Status DC Lorazepam (Ativan) 0.5 mg TID PO Last administered on 09/19/16 20:31; Start at 21:00; Stop 09/20/16 at 21:00 Lorazepam (Ativan) 0.5 mg BID PO ; Start 09/21/16 at 09:00; Stop 09/24/16 at 21: 00 Lorazepam (Ativan) 0.5 mg DAILY PO ; Start 09/25/16 at 09:00; Stop 09/28/16 at 21:00 Warfarin Sodium (Coumadin) 2.5 mg 1X WARF ONCE PO Last administered on 14:58; Start 09/18/16 at 16:00; Stop 09/18/16 at 16:01; Status DC Warfarin Sodium (Coumadin) 2 mg 1X WARF ONCE PO Last administered on 14:59; Start 09/18/16 at 16:00; Stop 09/18/16 at 16:01; Status DC Sertraline HCl (Zoloft) 25 mg DAILY PO Last administered on 09/19/16 09:48; Start 09/19/16 at 09:00 Warfarin Sodium (Coumadin - No Dose Today) 1 each 1X WARF ONCE MC Last administered on 09/19/16 14:14; Start 09/19/16 at 16:00; Stop 09/19/16 at 16:02 ; Status DC Active Scripts Active Reported Therems-M (Multivits,Th W-Fe,Other Min) 1 Each Tablet 1 Each PO DAILY Tamsulosin Hcl 0.4 Mg Cap.er.24h 0.4 Mg PO DAILY Lisinopril 5 Mg Tablet 5 Mg PO DAILY Famotidine 20 Mg Tablet 20 Mg PO DAILY Emsam (Selegiline) 1 Each Patch.td24 1 Each TD DAILY Aspirin 81 Mg Tab.chew 81 Mg PO DAILY Amiodarone Hcl 200 Mg Tablet 100 Mg PO DAILY Depakote (Divalproex Sodium) 250 Mg Tablet.dr 250 Mg PO BID Coumadin (Warfarin Sodium) 4 Mg Tablet 4.5 Mg PO DAILY Ativan (Lorazepam) 0.5 Mg Tablet 0.5 Mg PO PRN BID PRN Imodium A-D (Loperamide HCl) 2 Mg Capsule 2 Mg PO PRN PRN MDD 12 mg Ativan (Lorazepam) 1 Mg Tablet 1 Mg PO BID Buspirone Hcl 7.5 Mg Tablet 7.5 Mg PO BID LINDSAY BROWN MD September 19, 2016 20:40
--- NOTE | 2016-09-19 23:46 | NUR ---
Behavior Intervention Response and Plan: BIRP Note: Behavior: Assumed Care of patient, patient located in Day Room at shift change. Patient exhibited the following behavior Calm, Disorganized, Compliant. Brief assessment on rounds of vital signs, medication needs, lab studies, and pain. Treatment plan problems . Intervention: Patient assessed and the following interventions initiated safety checks 15 Minute Checks Call greenwood in reach , Medications , Personal Alarm in place. Response: After interactions and interventions patient responded in the following manner, Calm , Disorganized ,Compliant. Continue to assess behaviors and condition will continue to monitor throughout the shift as needed. Plan: Continue to monitor Master Treatment Plan for patient's progress toward short term goals of Decreased Agitation, Decreased Anxiety, senior living goals to return to previous living setting vs placement. Continue to assess patient for changes in above assessment. Monitor for medication needs, pain, and safety concerns. Hourly rounding performed to ensure safe environment.
[2016-09-20 05:54] VITALS: BP 121/73
[2016-09-20] MEDS: FAMOTIDINE 20 MG TABLET PO SCH (08:37)
[2016-09-20] MEDS: AMIODARONE HCL 200 MG TABLET PO SCH (08:37)
[2016-09-20] MEDS: busPIRone 15 MG TABLET. PO SCH ×2 (08:37→20:40)
[2016-09-20] MEDS: SERTRALINE 25 MG TABLET. PO SCH (08:38)
[2016-09-20] MEDS: MULTIVITAMIN with MINERAL TABLET. PO SCH (08:38)
[2016-09-20] MEDS: TAMSULOSIN 0.4 MG CAP.ER.24H. PO SCH (08:38)
[2016-09-20] MEDS: DIVALPROEX SODIUM 250 MG TABLET.DR. PO SCH (08:38)
[2016-09-20] MEDS: LORazepam 1 MG TABLET PO SCH ×3 (08:39→20:45)
[2016-09-20] MEDS: ASPIRIN 81 MG TAB.CHEW PO SCH (08:39)
[2016-09-20] MEDS: LISINOPRIL 5 MG TABLET. PO SCH (08:40)
[2016-09-20] MEDS: NYSTATIN TOPICAL POWDER 30GM BOTTLE. TP SCH ×2 (08:41→20:40)
[2016-09-20] MEDS: SELEGILINE 5 MG PO SCH (08:41)
--- NOTE | 2016-09-20 10:19 | NUR ---
Pharmacy Warfarin Dosing Note S:Pharmacy consulted to assist with anticoagulation therapy started 09/13/16 with target INR: 2 -3 O:ABBEY MATHIS is a 76 year old M with Stroke LABS: Last INR: 2.7 Last HGB: 12.7 Last HCT: 38.8 Last PLT: 189 Last dose- held yesterday for inr of 3.3 - last dose was 4.5mg on 09/18 - pt is fluctuating possible due to amiodarone Previous Regimen: 4.5MG HOME WARFARIN DOSE Vitamin K given: N Drug Interaction Changes: Same Interacting Drug Ongoing Drug Interactions: AMIODARONE A:INR Within desired Range. Target Range for this patient is: 2 -3 P: Warfarin dose: 2.5 mg Today at 1600 Bridge Therapy: None Next INR due 09/20/16 Pharmacy anticoagulation service will continue to follow. YAHAIRA SPEAR, 09/20/16 [id number]
--- NOTE | 2016-09-20 11:15 | NUR ---
THERAPEUTIC RECREATION GROUP NOTE TITLE :Movement to Music: Flexibility ACTIVITY : Movement/ Exercise GOAL : Increase morale, attention, flexibility. Decrease stress/anxiety. DURATION : 40 Minutes RESPONSE : Minimal participation. Pt. sat with group the entire time but closed his eyes most of the time. When he awoke, he was smiling/ laughing. He did a few moves after encouragement.
--- NOTE | 2016-09-20 14:30 | NUR ---
THERAPEUTIC RECREATION GROUP NOTE TITLE :Coloring May Silvestre ACTIVITY : Arts [employer]s GOAL : Increase socialization, fine motor skills, creativity DURATION : 105 minutes RESPONSE : No participation.
--- NOTE | 2016-09-20 15:01 | NUR ---
SW faxed updated clinical notes to José Manuel Haddad w/target dc date. SW to follow up next week.
[2016-09-20 15:53] VITALS: BP 125/69
[2016-09-20] MEDS ORDERED: WARFARIN 2.5 MG TABLET. PO ONE (16:00)
[2016-09-20] MEDS: QUEtiapine 25 MG TABLET. PO SCH (20:45)
[2016-09-20] MEDS: VALPROATE ACID 250 MG/5 ML ORAL SOLUTION PO SCH (20:46)
--- NOTE | 2016-09-20 21:06 | PDOC ---
Exam Blake Demential Exam: Blake Note: Please also refer to the separate dictated note~for this date of service dictated separately.~Patient seen individually. Discussed the patient with Nursing staff reviewed the chart.~Reviewed interim history and current functioning. Reviewed vital signs,~Labs/ Radiology~and current medications noted below. Continue current treatment with the changes noted in the dictated addendum note Assessment: Vital Signs: Vital Signs Date Time Temp Pulse Resp B/P (MAP) Pulse Ox O2 Delivery O2 Flow Rate FiO2 09/20/16 15:53 97.7 85 22 125/69 (87) 95 09/19/16 06:18 95.0 09/17/16 16:13 Room Air I&O Intake and Output 09/20/16 07:00 Intake Total 1080 ml Balance 1080 ml Intake Oral 1080 ml Labs: Laboratory Tests Test 09/20/16 09:10 Prothrombin Time 28.0 SEC (9.4-11.4) H Prothrombin Time INR 2.7 (0.9-1.1) H Current Medications: Meds: Current Medications Acetaminophen (Tylenol) 650 mg PRN Q6HRS PRN PO PAIN / TEMP Last administered on 09/15/16 20:02; Start 09/12/16 at 19:15 Multi-Ingredient Ointment (Analgesic [place]) 1 wilfredo PRN QID PRN TP MUSCLE PAIN; Start 09/12/16 at 19:15 Al Hydroxide/Mg Hydroxide (Mylanta Plus Xs) 15 ml PRN AFTMEALHC PRN PO DYSPEPSIA; Start 09/12/16 at 19:15 Magnesium Hydroxide (Milk Of Magnesia) 2,400 mg PRN QHS PRN PO CONSTIPATION; Start 09/12/16 at 19:15 Divalproex Sodium (Depakote) 250 mg BID PO Last administered on 09/20/16 08:38 ; Start 09/12/16 at 21:00; Stop 09/20/16 at 10:41; Status DC Lorazepam (Ativan) 0.5 mg PRN BID PRN PO ANXIETY / AGITATION Last administered on 09/14/16 01:11; Start 09/12/16 at 19:45 Lorazepam (Ativan) 1 mg BID PO Last administered on 09/17/16 08:49; Start 02/19 at 21:00; Stop 09/17/16 at 18:05; Status DC Selegiline HCl (Emsam) 1 patch DAILY TD ; Start 09/13/16 at 09:00; Stop at 18:35; Status DC Buspirone HCl (Buspar) 7.5 mg BID PO Last administered on 09/20/16 20:40; Start 09/12/16 at 21:00 Amiodarone HCl (Cordarone) 100 mg DAILY PO Last administered on 09/20/16 08:37 ; Start 09/13/16 at 09:00 Aspirin (Children'S Aspirin) 81 mg DAILY PO Last administered on 09/20/16 08: 39; Start 09/13/16 at 09:00 Famotidine (Pepcid) 20 mg DAILY PO Last administered on 09/20/16 08:37; Start 09/13/16 at 09:00 Lisinopril (Prinivil) 5 mg DAILY PO Last administered on 09/20/16 08:40; Start 09/13/16 at 09:00 Loperamide HCl (Imodium) 2 mg PRN Q4HRS PRN PO DIARRHEA; Start 09/12/16 at 19: 45 Tamsulosin HCl (Flomax) 0.4 mg DAILY PO Last administered on 09/20/16 08:38; Start 09/13/16 at 09:00 Warfarin Sodium (Coumadin) 2.5 mg DAILY16 PO Last administered on 09/14/16 16: 05; Start 09/13/16 at 16:00; Stop 09/15/16 at 15:03; Status DC Multivitamins/ Calcium (Thera-M Plus) 1 tab DAILY PO Last administered on 08:38; Start 09/13/16 at 09:00 Warfarin Sodium (Coumadin) 2 mg DAILY16 PO Last administered on 09/14/16 16:06 ; Start 09/13/16 at 16:00; Stop 09/15/16 at 15:02; Status DC Warfarin Sodium (Coumadin Per Pharmacy) 1 each PRN DAILY PRN MC SEE COMMENTS Last administered on 09/20/16 10:19; Start 09/13/16 at 03:15 Vitamin D (Vitamin D3) 50,000 unit WEEKLY PO Last administered on 09/14/16 07: 43; Start 09/14/16 at 09:00 Selegiline HCl (Eldepryl) 5 mg DAILY PO Last administered on 09/20/16 08:41; Start 09/14/16 at 09:00 Trazodone HCl (Desyrel) 50 mg PRN QHS PRN PO INSOMNIA, MAY REPEAT X1; Start 04/21 at 19:15 Nystatin (Nystop) 1 wilfredo BID TP Last administered on 09/20/16 20:40; Start at 09:00 Nystatin (Nystop) 30 wilfredo STK-MED ONCE TP Last administered on 09/14/16 21:27; Start 09/14/16 at 21:27; Stop 09/14/16 at 21:28; Status DC Warfarin Sodium (Coumadin) 3 mg 1X WARF ONCE PO Last administered on 15:48; Start 09/15/16 at 16:00; Stop 09/15/16 at 16:01; Status DC Warfarin Sodium (Coumadin) 2.5 mg 1X ONCE PO Last administered on 09/15/16 15 :47; Start 09/15/16 at 15:15; Stop 09/15/16 at 15:17; Status DC Warfarin Sodium (Coumadin) 5 mg 1X WARF ONCE PO Last administered on 18:16; Start 09/16/16 at 16:00; Stop 09/16/16 at 16:01; Status DC Warfarin Sodium (Coumadin) 2 mg 1X WARF ONCE PO Last administered on 16:02; Start 09/17/16 at 16:00; Stop 09/17/16 at 16:01; Status DC Warfarin Sodium (Coumadin) 2.5 mg 1X WARF ONCE PO Last administered on 16:03; Start 09/17/16 at 16:00; Stop 09/17/16 at 16:01; Status DC Lorazepam (Ativan) 0.5 mg TID PO Last administered on 09/20/16 20:45; Start at 21:00; Stop 09/20/16 at 21:00; Status DC Lorazepam (Ativan) 0.5 mg BID PO ; Start 09/21/16 at 09:00; Stop 09/24/16 at 21: 00 Lorazepam (Ativan) 0.5 mg DAILY PO ; Start 09/25/16 at 09:00; Stop 09/28/16 at 21:00 Warfarin Sodium (Coumadin) 2.5 mg 1X WARF ONCE PO Last administered on 14:58; Start 09/18/16 at 16:00; Stop 09/18/16 at 16:01; Status DC Warfarin Sodium (Coumadin) 2 mg 1X WARF ONCE PO Last administered on 14:59; Start 09/18/16 at 16:00; Stop 09/18/16 at 16:01; Status DC Sertraline HCl (Zoloft) 25 mg DAILY PO Last administered on 09/20/16 08:38; Start 09/19/16 at 09:00 Warfarin Sodium (Coumadin - No Dose Today) 1 each 1X WARF ONCE MC Last administered on 09/19/16 14:14; Start 09/19/16 at 16:00; Stop 09/19/16 at 16:02 ; Status DC Quetiapine Fumarate (SEROquel) 25 mg QHS PO Last administered on 09/20/16 20: 45; Start 09/20/16 at 21:00 Warfarin Sodium (Coumadin) 2.5 mg 1X WARF ONCE PO Last administered on 16:31; Start 09/20/16 at 16:00; Stop 09/20/16 at 16:01; Status DC Valproic Acid (Depakene) 250 mg BID PO Last administered on 09/20/16 20:46; Start 09/20/16 at 21:00 Active Scripts Active Reported Therems-M (Multivits, W-Fe,Other Min) 1 Each Tablet 1 Each PO DAILY Tamsulosin Hcl 0.4 Mg Cap.er.24h 0.4 Mg PO DAILY Lisinopril 5 Mg Tablet 5 Mg PO DAILY Famotidine 20 Mg Tablet 20 Mg PO DAILY Emsam (Selegiline) 1 Each Patch.td24 1 Each TD DAILY Aspirin 81 Mg Tab.chew 81 Mg PO DAILY Amiodarone Hcl 200 Mg Tablet 100 Mg PO DAILY Depakote (Divalproex Sodium) 250 Mg Tablet.dr 250 Mg PO BID Coumadin (Warfarin Sodium) 4 Mg Tablet 4.5 Mg PO DAILY Ativan (Lorazepam) 0.5 Mg Tablet 0.5 Mg PO PRN BID PRN Imodium A-D (Loperamide HCl) 2 Mg Capsule 2 Mg PO PRN PRN MDD 12 mg Ativan (Lorazepam) 1 Mg Tablet 1 Mg PO BID Buspirone Hcl 7.5 Mg Tablet 7.5 Mg PO BID LINDSAY BROWN MD September 20, 2016 21:06
[2016-09-20] MEDS: traZODone 50 MG TABLET. PO PRN (23:11)
--- NOTE | 2016-09-20 23:11 | NUR ---
Pt up wandering the hallway. Encourage pt to lie down, continues to wander. PRN Trazodone given at this time. Will continue to monitor and report.
--- NOTE | 2016-09-20 23:33 | NUR ---
Behavior Intervention Response and Plan: BIRP Note: Behavior: Assumed Care of patient, patient located in Day Room at shift change. Patient exhibited the following behavior Calm, Disorganized, Compliant. Brief assessment on rounds of vital signs, medication needs, lab studies, and pain. Treatment plan problems . Intervention: Patient assessed and the following interventions initiated safety checks 15 Minute Checks Call greenwood in reach , Personal Alarm in place , Call greenwood in reach. Response: After interactions and interventions patient responded in the following manner, Calm , Disorganized ,Compliant. Continue to assess behaviors and condition will continue to monitor throughout the shift as needed. Plan: Continue to monitor Master Treatment Plan for patient's progress toward short term goals of Decreased Agitation, Decreased Anxiety, residential goals to return to previous living setting vs placement. Continue to assess patient for changes in above assessment. Monitor for medication needs, pain, and safety concerns. Hourly rounding performed to ensure safe environment.
[2016-09-21 06:51] VITALS: BP 125/86
[2016-09-21] MEDS: LORazepam 0.5 MG TABLET PO SCH ×2 (09:13→19:40)
[2016-09-21] MEDS: busPIRone 15 MG TABLET. PO SCH ×2 (09:14→19:38)
[2016-09-21] MEDS: ASPIRIN 81 MG TAB.CHEW PO SCH (09:15)
[2016-09-21] MEDS: VALPROATE ACID 250 MG/5 ML ORAL SOLUTION PO SCH ×2 (09:16→19:38)
[2016-09-21] MEDS: SELEGILINE 5 MG PO SCH (09:16)
[2016-09-21] MEDS: FAMOTIDINE 20 MG TABLET PO SCH (09:16)
[2016-09-21] MEDS: TAMSULOSIN 0.4 MG CAP.ER.24H. PO SCH (09:16)
[2016-09-21] MEDS: AMIODARONE HCL 200 MG TABLET PO SCH (09:16)
[2016-09-21] MEDS: MULTIVITAMIN with MINERAL TABLET. PO SCH (09:17)
[2016-09-21] MEDS: LISINOPRIL 5 MG TABLET. PO SCH (09:17)
[2016-09-21] MEDS: CHOLECALCIFEROL (VITAMIN D3) 50,000 UNIT CAPSULE PO SCH (09:18)
[2016-09-21] MEDS: SERTRALINE 25 MG TABLET. PO SCH (09:18)
[2016-09-21] MEDS: NYSTATIN TOPICAL POWDER 30GM BOTTLE. TP SCH ×2 (09:18→19:41)
--- NOTE | 2016-09-21 10:20 | NUR ---
Behavior Intervention Response and Plan: BIRP Note: Behavior: Assumed Care of patient, patient located in Day Room at shift change. Patient exhibited the following behavior Disorganized, Calm, Cooperative. Brief assessment on rounds of vital signs, medication needs, lab studies, and pain. Treatment plan problems . Intervention: Patient assessed and the following interventions initiated safety checks 15 Minute Checks Head to toe Assessment , Medications , Oral Hydration. Response: After interactions and interventions patient responded in the following manner, Calm , Compliant ,Cooperative. Continue to assess behaviors and condition will continue to monitor throughout the shift as needed. 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 Continue to assess patient for changes in above assessment. Monitor for medication needs, pain, and safety concerns. Hourly rounding performed to ensure safe environment.
--- NOTE | 2016-09-21 13:08 | NUR ---
Pharmacy Warfarin Dosing Note S:Pharmacy consulted to assist with anticoagulation therapy started 09/13/16 with target INR: 2 -3 O:ABBEY MATHIS is a 76 year old M with Stroke LABS: Last INR: 2.4 Last HGB: 12.7 Last HCT: 38.8 Last PLT: 189 Last dose of 2.5 mg given on 09/20/16 at 1631 Previous Regimen: 4.5MG HOME WARFARIN DOSE Vitamin K given: N Drug Interaction Changes: Same Interacting Drug Ongoing Drug Interactions: AMIODARONE A:INR Within desired Range. Target Range for this patient is: 2 -3 P: Warfarin dose: 3.5 Today at 1600 due to the trend down since we had to hold dose on 09/19 Bridge Therapy: None Next INR due 09/22/16 am Pharmacy anticoagulation service will continue to follow. YAHAIRA SPEAR, 09/21/16 [id number]
--- NOTE | 2016-09-21 14:15 | NUR ---
THERAPEUTIC RECREATION GROUP NOTE TITLE :Leisure Awareness: [place] ACTIVITY : Leisure Awareness GOAL : Increase knowledge of leisure activities DURATION : 45 Minutes RESPONSE : No participation.
[2016-09-21] MEDS ORDERED: WARFARIN 2.5 MG TABLET. PO ONE (16:00)
[2016-09-21] MEDS ORDERED: WARFARIN 1 MG TABLET. PO ONE (16:00)
[2016-09-21 16:25] VITALS: BP 103/77
[2016-09-21] MEDS: QUEtiapine 25 MG TABLET. PO SCH (19:39)
--- NOTE | 2016-09-21 20:00 | NUR ---
Behavior Intervention Response and Plan: CHARP Note: Behavior: Assumed Care of patient, patient located in Day Room at shift change. Patient exhibited the following behavior Calm, Cooperative, Confused, Disoriented, Pleasant. Brief assessment on rounds of vital signs, medication needs, lab studies, and pain. Treatment plan problems: Dementia with BD and Fall Risk. Intervention: Patient assessed and the following interventions initiated safety checks 15 Minute Checks Cognitive Assessment , Head to toe Assessment , Medications, Oral Hydration, and Nutrition. Response: After interactions and interventions patient responded in the following manner, Calm , Interactive ,Compliant, Cooperative. Continue to assess behaviors and condition will continue to monitor throughout the shift as needed. 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 Continue to assess patient for changes in above assessment. Monitor for medication needs, pain, and safety concerns. Hourly rounding performed to ensure safe environment. Addendum: 09/22/16 at 0059 by RAMIN HALL RN RN treatment plan problems:MONROE
--- NOTE | 2016-09-21 21:10 | PDOC ---
Exam Blake Demential Exam: Blake Note: Please also refer to the separate dictated note~for this date of service dictated separately.~Patient seen individually. Discussed the patient with Nursing staff reviewed the chart.~Reviewed interim history and current functioning. Reviewed vital signs,~Labs/ Radiology~and current medications noted below. Continue current treatment with the changes noted in the dictated addendum note Assessment: Vital Signs: Vital Signs Date Time Temp Pulse Resp B/P (MAP) Pulse Ox O2 Delivery O2 Flow Rate FiO2 09/21/16 16:25 97.3 84 18 103/77 (86) 96 09/19/16 06:18 95.0 09/17/16 16:13 Room Air I&O Intake and Output 09/21/16 07:00 Intake Total 1440 ml Balance 1440 ml Intake Oral 1440 ml Labs: Laboratory Tests Test 09/21/16 11:40 Prothrombin Time 24.2 SEC (9.4-11.4) H Prothrombin Time INR 2.4 (0.9-1.1) H Current Medications: Meds: Current Medications Acetaminophen (Tylenol) 650 mg PRN Q6HRS PRN PO PAIN / TEMP Last administered on 09/15/16 20:02; Start 09/12/16 at 19:15 Multi-Ingredient Ointment (Analgesic [place]) 1 wilfredo PRN QID PRN TP MUSCLE PAIN; Start 09/12/16 at 19:15 Al Hydroxide/Mg Hydroxide (Mylanta Plus Xs) 15 ml PRN AFTMEALHC PRN PO DYSPEPSIA; Start 09/12/16 at 19:15 Magnesium Hydroxide (Milk Of Magnesia) 2,400 mg PRN QHS PRN PO CONSTIPATION; Start 09/12/16 at 19:15 Divalproex Sodium (Depakote) 250 mg BID PO Last administered on 09/20/16 08:38 ; Start 09/12/16 at 21:00; Stop 09/20/16 at 10:41; Status DC Lorazepam (Ativan) 0.5 mg PRN BID PRN PO ANXIETY / AGITATION Last administered on 09/14/16 01:11; Start 09/12/16 at 19:45 Lorazepam (Ativan) 1 mg BID PO Last administered on 09/17/16 08:49; Start 02/19 at 21:00; Stop 09/17/16 at 18:05; Status DC Selegiline HCl (Emsam) 1 patch DAILY TD ; Start 09/13/16 at 09:00; Stop at 18:35; Status DC Buspirone HCl (Buspar) 7.5 mg BID PO Last administered on 09/21/16 19:38; Start 09/12/16 at 21:00 Amiodarone HCl (Cordarone) 100 mg DAILY PO Last administered on 09/21/16 09:16 ; Start 09/13/16 at 09:00 Aspirin (Children'S Aspirin) 81 mg DAILY PO Last administered on 09/21/16 09: 15; Start 09/13/16 at 09:00 Famotidine (Pepcid) 20 mg DAILY PO Last administered on 09/21/16 09:16; Start 09/13/16 at 09:00 Lisinopril (Prinivil) 5 mg DAILY PO Last administered on 09/21/16 09:17; Start 09/13/16 at 09:00 Loperamide HCl (Imodium) 2 mg PRN Q4HRS PRN PO DIARRHEA; Start 09/12/16 at 19: 45 Tamsulosin HCl (Flomax) 0.4 mg DAILY PO Last administered on 09/21/16 09:16; Start 09/13/16 at 09:00 Warfarin Sodium (Coumadin) 2.5 mg DAILY16 PO Last administered on 09/14/16 16: 05; Start 09/13/16 at 16:00; Stop 09/15/16 at 15:03; Status DC Multivitamins/ Calcium (Thera-M Plus) 1 tab DAILY PO Last administered on 09:17; Start 09/13/16 at 09:00 Warfarin Sodium (Coumadin) 2 mg DAILY16 PO Last administered on 09/14/16 16:06 ; Start 09/13/16 at 16:00; Stop 09/15/16 at 15:02; Status DC Warfarin Sodium (Coumadin Per Pharmacy) 1 each PRN DAILY PRN MC SEE COMMENTS Last administered on 09/21/16 13:08; Start 09/13/16 at 03:15 Vitamin D (Vitamin D3) 50,000 unit WEEKLY PO Last administered on 09/21/16 09: 18; Start 09/14/16 at 09:00 Selegiline HCl (Eldepryl) 5 mg DAILY PO Last administered on 09/21/16 09:16; Start 09/14/16 at 09:00 Trazodone HCl (Desyrel) 50 mg PRN QHS PRN PO INSOMNIA, MAY REPEAT X1 Last administered on 09/20/16 23:11; Start 09/14/16 at 19:15 Nystatin (Nystop) 1 wilfredo BID TP Last administered on 09/21/16 19:41; Start at 09:00 Nystatin (Nystop) 30 wilfredo STK-MED ONCE TP Last administered on 09/14/16 21:27; Start 09/14/16 at 21:27; Stop 09/14/16 at 21:28; Status DC Warfarin Sodium (Coumadin) 3 mg 1X WARF ONCE PO Last administered on 15:48; Start 09/15/16 at 16:00; Stop 09/15/16 at 16:01; Status DC Warfarin Sodium (Coumadin) 2.5 mg 1X ONCE PO Last administered on 09/15/16 15 :47; Start 09/15/16 at 15:15; Stop 09/15/16 at 15:17; Status DC Warfarin Sodium (Coumadin) 5 mg 1X WARF ONCE PO Last administered on 18:16; Start 09/16/16 at 16:00; Stop 09/16/16 at 16:01; Status DC Warfarin Sodium (Coumadin) 2 mg 1X WARF ONCE PO Last administered on 16:02; Start 09/17/16 at 16:00; Stop 09/17/16 at 16:01; Status DC Warfarin Sodium (Coumadin) 2.5 mg 1X WARF ONCE PO Last administered on 16:03; Start 09/17/16 at 16:00; Stop 09/17/16 at 16:01; Status DC Lorazepam (Ativan) 0.5 mg TID PO Last administered on 09/20/16 20:45; Start at 21:00; Stop 09/20/16 at 21:00; Status DC Lorazepam (Ativan) 0.5 mg BID PO Last administered on 09/21/16 19:40; Start at 09:00; Stop 09/24/16 at 21:00 Lorazepam (Ativan) 0.5 mg DAILY PO ; Start 09/25/16 at 09:00; Stop 09/28/16 at 21:00 Warfarin Sodium (Coumadin) 2.5 mg 1X WARF ONCE PO Last administered on 14:58; Start 09/18/16 at 16:00; Stop 09/18/16 at 16:01; Status DC Warfarin Sodium (Coumadin) 2 mg 1X WARF ONCE PO Last administered on 14:59; Start 09/18/16 at 16:00; Stop 09/18/16 at 16:01; Status DC Sertraline HCl (Zoloft) 25 mg DAILY PO Last administered on 09/21/16 09:18; Start 09/19/16 at 09:00 Warfarin Sodium (Coumadin - No Dose Today) 1 each 1X WARF ONCE MC Last administered on 09/19/16 14:14; Start 09/19/16 at 16:00; Stop 09/19/16 at 16:02 ; Status DC Quetiapine Fumarate (SEROquel) 25 mg QHS PO Last administered on 09/21/16 19: 39; Start 09/20/16 at 21:00 Warfarin Sodium (Coumadin) 2.5 mg 1X WARF ONCE PO Last administered on 16:31; Start 09/20/16 at 16:00; Stop 09/20/16 at 16:01; Status DC Valproic Acid (Depakene) 250 mg BID PO Last administered on 09/21/16 19:38; Start 09/20/16 at 21:00 Warfarin Sodium (Coumadin) 2.5 mg 1X WARF ONCE PO Last administered on 16:02; Start 09/21/16 at 16:00; Stop 09/21/16 at 16:01; Status DC Warfarin Sodium (Coumadin) 1 mg 1X WARF ONCE PO Last administered on 16:02; Start 09/21/16 at 16:00; Stop 09/21/16 at 16:01; Status DC Mirtazapine (Remeron) 7.5 mg QHS PO ; Start 09/21/16 at 21:00 Active Scripts Active Reported Therems-M (Multivits,Th W-Fe,Other Min) 1 Each Tablet 1 Each PO DAILY Tamsulosin Hcl 0.4 Mg Cap.er.24h 0.4 Mg PO DAILY Lisinopril 5 Mg Tablet 5 Mg PO DAILY Famotidine 20 Mg Tablet 20 Mg PO DAILY Emsam (Selegiline) 1 Each Patch.td24 1 Each TD DAILY Aspirin 81 Mg Tab.chew 81 Mg PO DAILY Amiodarone Hcl 200 Mg Tablet 100 Mg PO DAILY Depakote (Divalproex Sodium) 250 Mg Tablet.dr 250 Mg PO BID Coumadin (Warfarin Sodium) 4 Mg Tablet 4.5 Mg PO DAILY Ativan (Lorazepam) 0.5 Mg Tablet 0.5 Mg PO PRN BID PRN Imodium A-D (Loperamide HCl) 2 Mg Capsule 2 Mg PO PRN PRN MDD 12 mg Ativan (Lorazepam) 1 Mg Tablet 1 Mg PO BID Buspirone Hcl 7.5 Mg Tablet 7.5 Mg PO BID LINDSAY BROWN MD September 21, 2016 21:09
[2016-09-21] MEDS: MIRTAZAPINE 7.5 MG TABLET. PO SCH (23:09)
--- NOTE | 2016-09-22 00:29 | PN ---
DATE: 09/20/2016 This is a late entry for 09/20/2016 and covers elements not covered in my initial note. SUBJECTIVE: The patient was staffed at treatment team meeting with the entire team morning of 09/20/2016, seen individually at length evening of 09/20/2016, sleeping about 4 hours. Appetite 100%. 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 Recent memory is quite poor, somewhat delusional, intermittently hallucinating, compliant with his medications, pleasant. REVIEW OF SYSTEMS: No CV, , pulmonary, eye system symptoms on review. Reliability poor. MENTAL STATUS EXAM: Oriented to himself. Insight, judgment, recent memory is impaired. Language function intact. Remote memory is fair. Mood and affect despite the above is improved. LABORATORY DATA: Reviewed. IMPRESSION: Unchanged from initial note. PLAN: Change Depakote Sprinkles to liquid to help with compliance, start Seroquel 25 mg at bedtime. Maintain the rest of the psychotropics as mentioned in my initial note. MAN Phoenix BROWN MD DR: JEREL/tavo JOB#: [id number] / [id number]
--- NOTE | 2016-09-22 00:33 | PN ---
DATE: 09/19/2016 PSYCHIATRIC PROGRESS NOTE This is a late entry covers 09/19/2016 covers the elements not covered in my initial note. 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 He seems to remember all of that. He is compliant with his medications. REVIEW OF SYSTEMS: No CV, , pulmonary, eye, ENT system symptoms on review. Reliability poor. MENTAL STATUS EXAM: Oriented to himself and situation. Speech coherent, pleasant, verbal, abstraction fair, computation impaired, language function intact. Mood and affect is improved. LABORATORY DATA: Reviewed. IMPRESSION: Major neurocognitive disorder, Alzheimer, vascular with depression, delusion, behavioral disturbance. Rest unchanged. PLAN: Continue current psychotropics. Adjust further as clinically indicated. MAN Phoenix BROWN MD DR: JEREL/tavo JOB#: [id number] / [id number]
[2016-09-22 06:12] VITALS: BP 117/75
[2016-09-22] MEDS: busPIRone 15 MG TABLET. PO SCH ×2 (10:13→19:21)
[2016-09-22] MEDS: TAMSULOSIN 0.4 MG CAP.ER.24H. PO SCH (10:13)
[2016-09-22] MEDS: MULTIVITAMIN with MINERAL TABLET. PO SCH (10:13)
[2016-09-22] MEDS: ASPIRIN 81 MG TAB.CHEW PO SCH (10:13)
[2016-09-22] MEDS: SERTRALINE 25 MG TABLET. PO SCH (10:13)
[2016-09-22] MEDS: SELEGILINE 5 MG PO SCH (10:13)
[2016-09-22] MEDS: FAMOTIDINE 20 MG TABLET PO SCH (10:14)
[2016-09-22] MEDS: VALPROATE ACID 250 MG/5 ML ORAL SOLUTION PO SCH ×2 (10:15→21:13)
[2016-09-22] MEDS: AMIODARONE HCL 200 MG TABLET PO SCH (10:16)
[2016-09-22] MEDS: LISINOPRIL 5 MG TABLET. PO SCH (10:17)
[2016-09-22] MEDS: NYSTATIN TOPICAL POWDER 30GM BOTTLE. TP SCH ×2 (10:19→19:23)
[2016-09-22] MEDS: LORazepam 0.5 MG TABLET PO SCH ×2 (10:21→19:20)
--- NOTE | 2016-09-22 10:46 | NUR ---
Pharmacy Warfarin Dosing Note S:Pharmacy consulted to assist with anticoagulation therapy started 09/13/16 with target INR: 2 -3 O:ABBEY MATHIS is a 76 year old M with Stroke LABS: Last INR: 2.0 Last HGB: 12.7 Last HCT: 38.8 Last PLT: 189 Last dose of 3.5MG given on 09/21/16 at 1600 Previous Regimen: 4.5MG HOME WARFARIN DOSE Vitamin K given: N Drug Interaction Changes: Same Interacting Drug Ongoing Drug Interactions: AMIODARONE A:INR Within desired Range. Target Range for this patient is: 2 -3 P: Warfarin dose: 4 mg Today at 1600 Bridge Therapy: None Next INR due 09/23/16 Pharmacy anticoagulation service will continue to follow. BERNARDO MTZ, 09/22/16 1045
[2016-09-22] MEDS ORDERED: WARFARIN 4 MG TABLET. PO ONE (16:00)
[2016-09-22 16:34] VITALS: BP 97/51
--- NOTE | 2016-09-22 16:59 | NUR ---
Behavior Intervention Response and Plan: BIRP Note: Behavior: Assumed Care of patient, patient located in Day Room at shift change. Patient exhibited the following behavior Calm, Compliant, Compliant. Brief assessment on rounds of vital signs, medication needs, lab studies, and pain. Treatment plan problems . Intervention: Patient assessed and the following interventions initiated safety checks 15 Minute Checks Cognitive Assessment , Head to toe Assessment , Medications. Response: After interactions and interventions patient responded in the following manner, Calm , Compliant ,Cooperative. Continue to assess behaviors and condition will continue to monitor throughout the shift as needed. Plan: Continue to monitor Master Treatment Plan for patient's progress toward short term goals of Medication Compliance, Improved Mood, retirement goals to return to previous living setting vs placement. Continue to assess patient for changes in above assessment. Monitor for medication needs, pain, and safety concerns. Hourly rounding performed to ensure safe environment.
[2016-09-22] MEDS: LORazepam 0.5 MG TABLET PO PRN (17:09)
--- NOTE | 2016-09-22 17:46 | NUR ---
Patient had an explosive episode just before dinner and refused to take his oral Lorazepam. He stated that he is going to divorce his for leaving him here and he wants to walk home. Several staff members tried to convince him to take his medication and have his dinner to which he refused.
[2016-09-22] MEDS: MIRTAZAPINE 7.5 MG TABLET. PO SCH (19:22)
[2016-09-22] MEDS: QUEtiapine 25 MG TABLET. PO SCH (19:23)
--- NOTE | 2016-09-22 19:45 | NUR ---
Behavior Intervention Response and Plan: BIRP Note: Behavior: Assumed Care of patient, patient located in Day Room at shift change. Patient exhibited the following behavior Wandering, Non Compliant, Resistive, Anxious, confused, disoriented. Brief assessment on rounds of vital signs, medication needs, lab studies, and pain. Treatment plan problems: DTO and Fall Risk . Intervention: Patient assessed and the following interventions initiated safety checks 15 Minute Checks Cognitive Assessment , Head to toe Assessment , Medications, Oral Hydration, Nutrition. Response: After interactions and interventions patient responded in the following manner, Calm , Interactive ,Cooperative. Continue to assess behaviors and condition will continue to monitor throughout the shift as needed. 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 Continue to assess patient for changes in above assessment. Monitor for medication needs, pain, and safety concerns. Hourly rounding performed to ensure safe environment.
--- NOTE | 2016-09-22 20:59 | PDOC ---
Exam Blake Demential Exam: Blake Note: Please also refer to the separate dictated note~for this date of service dictated separately.~Patient seen individually. Discussed the patient with Nursing staff reviewed the chart.~Reviewed interim history and current functioning. Reviewed vital signs,~Labs/ Radiology~and current medications noted below. Continue current treatment with the changes noted in the dictated addendum note Assessment: Vital Signs: Vital Signs Date Time Temp Pulse Resp B/P (MAP) Pulse Ox O2 Delivery O2 Flow Rate FiO2 09/22/16 16:34 98.0 90 18 97/51 (66) 97 09/19/16 06:18 95.0 09/17/16 16:13 Room Air I&O Intake and Output 09/22/16 07:00 Intake Total 600 ml Balance 600 ml Intake Oral 600 ml Labs: Laboratory Tests Test 09/22/16 09:10 Prothrombin Time 20.9 SEC (9.4-11.4) H Prothrombin Time INR 2.0 (0.9-1.1) H Current Medications: Meds: Current Medications Acetaminophen (Tylenol) 650 mg PRN Q6HRS PRN PO PAIN / TEMP Last administered on 09/15/16 20:02; Start 09/12/16 at 19:15 Multi-Ingredient Ointment (Analgesic [place]) 1 wilfredo PRN QID PRN TP MUSCLE PAIN; Start 09/12/16 at 19:15 Al Hydroxide/Mg Hydroxide (Mylanta Plus Xs) 15 ml PRN AFTMEALHC PRN PO DYSPEPSIA; Start 09/12/16 at 19:15 Magnesium Hydroxide (Milk Of Magnesia) 2,400 mg PRN QHS PRN PO CONSTIPATION; Start 09/12/16 at 19:15 Divalproex Sodium (Depakote) 250 mg BID PO Last administered on 09/20/16 08:38 ; Start 09/12/16 at 21:00; Stop 09/20/16 at 10:41; Status DC Lorazepam (Ativan) 0.5 mg PRN BID PRN PO ANXIETY / AGITATION Last administered on 09/14/16 01:11; Start 09/12/16 at 19:45 Lorazepam (Ativan) 1 mg BID PO Last administered on 09/17/16 08:49; Start 02/19 at 21:00; Stop 09/17/16 at 18:05; Status DC Selegiline HCl (Emsam) 1 patch DAILY TD ; Start 09/13/16 at 09:00; Stop at 18:35; Status DC Buspirone HCl (Buspar) 7.5 mg BID PO Last administered on 09/22/16 10:13; Start 09/12/16 at 21:00 Amiodarone HCl (Cordarone) 100 mg DAILY PO Last administered on 09/22/16 10:16 ; Start 09/13/16 at 09:00 Aspirin (Children'S Aspirin) 81 mg DAILY PO Last administered on 09/22/16 10: 13; Start 09/13/16 at 09:00 Famotidine (Pepcid) 20 mg DAILY PO Last administered on 09/22/16 10:14; Start 09/13/16 at 09:00 Lisinopril (Prinivil) 5 mg DAILY PO Last administered on 09/22/16 10:17; Start 09/13/16 at 09:00 Loperamide HCl (Imodium) 2 mg PRN Q4HRS PRN PO DIARRHEA; Start 09/12/16 at 19: 45 Tamsulosin HCl (Flomax) 0.4 mg DAILY PO Last administered on 09/22/16 10:13; Start 09/13/16 at 09:00 Warfarin Sodium (Coumadin) 2.5 mg DAILY16 PO Last administered on 09/14/16 16: 05; Start 09/13/16 at 16:00; Stop 09/15/16 at 15:03; Status DC Multivitamins/ Calcium (Thera-M Plus) 1 tab DAILY PO Last administered on 10:13; Start 09/13/16 at 09:00 Warfarin Sodium (Coumadin) 2 mg DAILY16 PO Last administered on 09/14/16 16:06 ; Start 09/13/16 at 16:00; Stop 09/15/16 at 15:02; Status DC Warfarin Sodium (Coumadin Per Pharmacy) 1 each PRN DAILY PRN MC SEE COMMENTS Last administered on 09/22/16 10:44; Start 09/13/16 at 03:15 Vitamin D (Vitamin D3) 50,000 unit WEEKLY PO Last administered on 09/21/16 09: 18; Start 09/14/16 at 09:00 Selegiline HCl (Eldepryl) 5 mg DAILY PO Last administered on 09/22/16 10:13; Start 09/14/16 at 09:00 Trazodone HCl (Desyrel) 50 mg PRN QHS PRN PO INSOMNIA, MAY REPEAT X1 Last administered on 09/20/16 23:11; Start 09/14/16 at 19:15 Nystatin (Nystop) 1 wilfredo BID TP Last administered on 09/22/16 10:19; Start at 09:00 Nystatin (Nystop) 30 wilfredo STK-MED ONCE TP Last administered on 09/14/16 21:27; Start 09/14/16 at 21:27; Stop 09/14/16 at 21:28; Status DC Warfarin Sodium (Coumadin) 3 mg 1X WARF ONCE PO Last administered on 15:48; Start 09/15/16 at 16:00; Stop 09/15/16 at 16:01; Status DC Warfarin Sodium (Coumadin) 2.5 mg 1X ONCE PO Last administered on 09/15/16 15 :47; Start 09/15/16 at 15:15; Stop 09/15/16 at 15:17; Status DC Warfarin Sodium (Coumadin) 5 mg 1X WARF ONCE PO Last administered on 18:16; Start 09/16/16 at 16:00; Stop 09/16/16 at 16:01; Status DC Warfarin Sodium (Coumadin) 2 mg 1X WARF ONCE PO Last administered on 16:02; Start 09/17/16 at 16:00; Stop 09/17/16 at 16:01; Status DC Warfarin Sodium (Coumadin) 2.5 mg 1X WARF ONCE PO Last administered on 16:03; Start 09/17/16 at 16:00; Stop 09/17/16 at 16:01; Status DC Lorazepam (Ativan) 0.5 mg TID PO Last administered on 09/20/16 20:45; Start at 21:00; Stop 09/20/16 at 21:00; Status DC Lorazepam (Ativan) 0.5 mg BID PO Last administered on 09/22/16 10:21; Start at 09:00; Stop 09/24/16 at 21:00 Lorazepam (Ativan) 0.5 mg DAILY PO ; Start 09/25/16 at 09:00; Stop 09/28/16 at 21:00 Warfarin Sodium (Coumadin) 2.5 mg 1X WARF ONCE PO Last administered on 14:58; Start 09/18/16 at 16:00; Stop 09/18/16 at 16:01; Status DC Warfarin Sodium (Coumadin) 2 mg 1X WARF ONCE PO Last administered on 14:59; Start 09/18/16 at 16:00; Stop 09/18/16 at 16:01; Status DC Sertraline HCl (Zoloft) 25 mg DAILY PO Last administered on 09/22/16 10:13; Start 09/19/16 at 09:00 Warfarin Sodium (Coumadin - No Dose Today) 1 each 1X WARF ONCE MC Last administered on 09/19/16 14:14; Start 09/19/16 at 16:00; Stop 09/19/16 at 16:02 ; Status DC Quetiapine Fumarate (SEROquel) 25 mg QHS PO Last administered on 09/21/16 19: 39; Start 09/20/16 at 21:00 Warfarin Sodium (Coumadin) 2.5 mg 1X WARF ONCE PO Last administered on 16:31; Start 09/20/16 at 16:00; Stop 09/20/16 at 16:01; Status DC Valproic Acid (Depakene) 250 mg BID PO Last administered on 09/22/16 10:15; Start 09/20/16 at 21:00 Warfarin Sodium (Coumadin) 2.5 mg 1X WARF ONCE PO Last administered on 16:02; Start 09/21/16 at 16:00; Stop 09/21/16 at 16:01; Status DC Warfarin Sodium (Coumadin) 1 mg 1X WARF ONCE PO Last administered on 16:02; Start 09/21/16 at 16:00; Stop 09/21/16 at 16:01; Status DC Mirtazapine (Remeron) 7.5 mg QHS PO Last administered on 09/21/16 23:09; Start 5/19/17 at 21:00 Warfarin Sodium (Coumadin) 4 mg 1X WARF ONCE PO ; Start 09/22/16 at 16:00; Stop 09/22/16 at 16:01 Active Scripts Active Reported Therems-M (Multivits, W-Fe,Other Min) 1 Each Tablet 1 Each PO DAILY Tamsulosin Hcl 0.4 Mg Cap.er.24h 0.4 Mg PO DAILY Lisinopril 5 Mg Tablet 5 Mg PO DAILY Famotidine 20 Mg Tablet 20 Mg PO DAILY Emsam (Selegiline) 1 Each Patch.td24 1 Each TD DAILY Aspirin 81 Mg Tab.chew 81 Mg PO DAILY Amiodarone Hcl 200 Mg Tablet 100 Mg PO DAILY Depakote (Divalproex Sodium) 250 Mg Tablet.dr 250 Mg PO BID Coumadin (Warfarin Sodium) 4 Mg Tablet 4.5 Mg PO DAILY Ativan (Lorazepam) 0.5 Mg Tablet 0.5 Mg PO PRN BID PRN Imodium A-D (Loperamide HCl) 2 Mg Capsule 2 Mg PO PRN PRN MDD 12 mg Ativan (Lorazepam) 1 Mg Tablet 1 Mg PO BID Buspirone Hcl 7.5 Mg Tablet 7.5 Mg PO BID Diagnosis: Problems: (1) Dementia LINDSAY BROWN MD September 22, 2016 20:59
[2016-09-23 06:54] VITALS: BP 121/62
--- NOTE | 2016-09-23 08:10 | NUR ---
Pharmacy Warfarin Dosing Note S:Pharmacy consulted to assist with anticoagulation therapy started 09/13/16 with target INR: 2 -3 O:ABBEY MATHIS is a 76 year old M with Stroke LABS: Last INR: 2.2 Last HGB: 12.7 Last HCT: 38.8 Last PLT: 189 Last dose of 4 mg given on 09/22/16 at 1600 Previous Regimen: 4.5MG HOME WARFARIN DOSE Vitamin K given: N Drug Interaction Changes: Same Interacting Drug Ongoing Drug Interactions: AMIODARONE A:INR Within desired Range. Target Range for this patient is: 2 -3 P: Warfarin dose: 4 mg Today at 1600 Bridge Therapy: None Next INR due 09/24/2016 Pharmacy anticoagulation service will continue to follow. BERNARDO MTZ, 09/23/16 0810
[2016-09-23] MEDS: TAMSULOSIN 0.4 MG CAP.ER.24H. PO SCH (09:11)
[2016-09-23] MEDS: MULTIVITAMIN with MINERAL TABLET. PO SCH (09:11)
[2016-09-23] MEDS: LORazepam 0.5 MG TABLET PO SCH ×2 (09:11→19:10)
[2016-09-23] MEDS: AMIODARONE HCL 200 MG TABLET PO SCH (09:11)
[2016-09-23] MEDS: FAMOTIDINE 20 MG TABLET PO SCH (09:12)
[2016-09-23] MEDS: SERTRALINE 25 MG TABLET. PO SCH (09:12)
[2016-09-23] MEDS: ASPIRIN 81 MG TAB.CHEW PO SCH (09:12)
[2016-09-23] MEDS: VALPROATE ACID 250 MG/5 ML ORAL SOLUTION PO SCH ×2 (09:12→19:10)
[2016-09-23] MEDS: busPIRone 15 MG TABLET. PO SCH ×2 (09:12→19:10)
[2016-09-23] MEDS: SELEGILINE 5 MG PO SCH (09:12)
[2016-09-23] MEDS: LISINOPRIL 5 MG TABLET. PO SCH (09:12)
[2016-09-23] MEDS: NYSTATIN TOPICAL POWDER 30GM BOTTLE. TP SCH ×2 (09:15→19:11)
--- NOTE | 2016-09-23 10:24 | NUR ---
Behavior Intervention Response and Plan: BIRP Note: Behavior: Assumed Care of patient, patient located in Day Room at shift change. Patient exhibited the following behavior Compliant, Cooperative, Drowsy. Brief assessment on rounds of vital signs, medication needs, lab studies, and pain. Treatment plan problems . Intervention: Patient assessed and the following interventions initiated safety checks 15 Minute Checks Cognitive Assessment , Head to toe Assessment , Medications. Response: After interactions and interventions patient responded in the following manner, Calm , Compliant ,Cooperative. Continue to assess behaviors and condition will continue to monitor throughout the shift as needed. Plan: Continue to monitor Master Treatment Plan for patient's progress toward short term goals of Decreased Agitation, Decreased Anxiety, alf goals to return to previous living setting vs placement. Continue to assess patient for changes in above assessment. Monitor for medication needs, pain, and safety concerns. Hourly rounding performed to ensure safe environment.
[2016-09-23] MEDS ORDERED: WARFARIN 4 MG TABLET. PO ONE (16:00)
[2016-09-23 16:14] VITALS: BP 121/92
[2016-09-23] MEDS: QUEtiapine 25 MG TABLET. PO SCH (19:10)
[2016-09-23] MEDS: MIRTAZAPINE 7.5 MG TABLET. PO SCH (19:10)
--- NOTE | 2016-09-23 19:45 | NUR ---
Behavior Intervention Response and Plan: BIRP Note: Behavior: Assumed Care of patient, patient located in Day Room at shift change. Patient exhibited the following behavior Calm, Cooperative, Confused, Disoriented, Pleasant. Brief assessment on rounds of vital signs, medication needs, lab studies, and pain. Treatment plan problems: DTO and Fall Risk. Intervention: Patient assessed and the following interventions initiated safety checks 15 Minute Checks Cognitive Assessment , Head to toe Assessment , Medications, Oral Hydration, and Nutrition. Response: After interactions and interventions patient responded in the following manner, Calm , Interactive ,Compliant, Cooperative, confused, Disoriented. Continue to assess behaviors and condition will continue to monitor throughout the shift as needed. Plan: Continue to monitor Master Treatment Plan for patient's progress toward short term goals of Decreased Anxiety, Medication Compliance, Improved Mood, manager terminal goals to return to previous living setting vs placement. Continue to assess patient for changes in above assessment. Monitor for medication needs, pain, and safety concerns. Hourly rounding performed to ensure safe environment.
--- NOTE | 2016-09-23 19:48 | PDOC ---
Exam Blake Demential Exam: Blake Note: Please also refer to the separate dictated note~for this date of service dictated separately.~Patient seen individually. Discussed the patient with Nursing staff reviewed the chart.~Reviewed interim history and current functioning. Reviewed vital signs,~Labs/ Radiology~and current medications noted below. Continue current treatment with the changes noted in the dictated addendum note Assessment: Vital Signs: Vital Signs Date Time Temp Pulse Resp B/P (MAP) Pulse Ox O2 Delivery O2 Flow Rate FiO2 09/23/16 16:14 98.0 90 18 121/92 (102) 95 09/19/16 06:18 95.0 09/17/16 16:13 Room Air I&O Intake and Output 09/23/16 07:00 Intake Total 720 ml Balance 720 ml Intake Oral 720 ml Labs: Laboratory Tests Test 09/23/16 05:20 Prothrombin Time 22.3 SEC (9.4-11.4) H Prothrombin Time INR 2.2 (0.9-1.1) H Current Medications: Meds: Current Medications Acetaminophen (Tylenol) 650 mg PRN Q6HRS PRN PO PAIN / TEMP Last administered on 09/15/16 20:02; Start 09/12/16 at 19:15 Multi-Ingredient Ointment (Analgesic [place]) 1 wilfredo PRN QID PRN TP MUSCLE PAIN; Start 09/12/16 at 19:15 Al Hydroxide/Mg Hydroxide (Mylanta Plus Xs) 15 ml PRN AFTMEALHC PRN PO DYSPEPSIA; Start 09/12/16 at 19:15 Magnesium Hydroxide (Milk Of Magnesia) 2,400 mg PRN QHS PRN PO CONSTIPATION; Start 09/12/16 at 19:15 Divalproex Sodium (Depakote) 250 mg BID PO Last administered on 09/20/16 08:38 ; Start 09/12/16 at 21:00; Stop 09/20/16 at 10:41; Status DC Lorazepam (Ativan) 0.5 mg PRN BID PRN PO ANXIETY / AGITATION Last administered on 09/14/16 01:11; Start 09/12/16 at 19:45 Lorazepam (Ativan) 1 mg BID PO Last administered on 09/17/16 08:49; Start 02/19 at 21:00; Stop 09/17/16 at 18:05; Status DC Selegiline HCl (Emsam) 1 patch DAILY TD ; Start 09/13/16 at 09:00; Stop at 18:35; Status DC Buspirone HCl (Buspar) 7.5 mg BID PO Last administered on 09/23/16 19:10; Start 09/12/16 at 21:00 Amiodarone HCl (Cordarone) 100 mg DAILY PO Last administered on 09/23/16 09:11 ; Start 09/13/16 at 09:00 Aspirin (Children'S Aspirin) 81 mg DAILY PO Last administered on 09/23/16 09: 12; Start 09/13/16 at 09:00 Famotidine (Pepcid) 20 mg DAILY PO Last administered on 09/23/16 09:12; Start 09/13/16 at 09:00 Lisinopril (Prinivil) 5 mg DAILY PO Last administered on 09/23/16 09:12; Start 09/13/16 at 09:00 Loperamide HCl (Imodium) 2 mg PRN Q4HRS PRN PO DIARRHEA; Start 09/12/16 at 19: 45 Tamsulosin HCl (Flomax) 0.4 mg DAILY PO Last administered on 09/23/16 09:11; Start 09/13/16 at 09:00 Warfarin Sodium (Coumadin) 2.5 mg DAILY16 PO Last administered on 09/14/16 16: 05; Start 09/13/16 at 16:00; Stop 09/15/16 at 15:03; Status DC Multivitamins/ Calcium (Thera-M Plus) 1 tab DAILY PO Last administered on 09:11; Start 09/13/16 at 09:00 Warfarin Sodium (Coumadin) 2 mg DAILY16 PO Last administered on 09/14/16 16:06 ; Start 09/13/16 at 16:00; Stop 09/15/16 at 15:02; Status DC Warfarin Sodium (Coumadin Per Pharmacy) 1 each PRN DAILY PRN MC SEE COMMENTS Last administered on 09/23/16 08:09; Start 09/13/16 at 03:15 Vitamin D (Vitamin D3) 50,000 unit WEEKLY PO Last administered on 09/21/16 09: 18; Start 09/14/16 at 09:00 Selegiline HCl (Eldepryl) 5 mg DAILY PO Last administered on 09/23/16 09:12; Start 09/14/16 at 09:00 Trazodone HCl (Desyrel) 50 mg PRN QHS PRN PO INSOMNIA, MAY REPEAT X1 Last administered on 09/20/16 23:11; Start 09/14/16 at 19:15 Nystatin (Nystop) 1 wilfredo BID TP Last administered on 09/23/16 19:11; Start at 09:00 Nystatin (Nystop) 30 wilfredo STK-MED ONCE TP Last administered on 09/14/16 21:27; Start 09/14/16 at 21:27; Stop 09/14/16 at 21:28; Status DC Warfarin Sodium (Coumadin) 3 mg 1X WARF ONCE PO Last administered on 15:48; Start 09/15/16 at 16:00; Stop 09/15/16 at 16:01; Status DC Warfarin Sodium (Coumadin) 2.5 mg 1X ONCE PO Last administered on 09/15/16 15 :47; Start 09/15/16 at 15:15; Stop 09/15/16 at 15:17; Status DC Warfarin Sodium (Coumadin) 5 mg 1X WARF ONCE PO Last administered on 18:16; Start 09/16/16 at 16:00; Stop 09/16/16 at 16:01; Status DC Warfarin Sodium (Coumadin) 2 mg 1X WARF ONCE PO Last administered on 16:02; Start 09/17/16 at 16:00; Stop 09/17/16 at 16:01; Status DC Warfarin Sodium (Coumadin) 2.5 mg 1X WARF ONCE PO Last administered on 16:03; Start 09/17/16 at 16:00; Stop 09/17/16 at 16:01; Status DC Lorazepam (Ativan) 0.5 mg TID PO Last administered on 09/20/16 20:45; Start at 21:00; Stop 09/20/16 at 21:00; Status DC Lorazepam (Ativan) 0.5 mg BID PO Last administered on 09/23/16 19:10; Start at 09:00; Stop 09/24/16 at 21:00 Lorazepam (Ativan) 0.5 mg DAILY PO ; Start 09/25/16 at 09:00; Stop 09/28/16 at 21:00 Warfarin Sodium (Coumadin) 2.5 mg 1X WARF ONCE PO Last administered on 14:58; Start 09/18/16 at 16:00; Stop 09/18/16 at 16:01; Status DC Warfarin Sodium (Coumadin) 2 mg 1X WARF ONCE PO Last administered on 14:59; Start 09/18/16 at 16:00; Stop 09/18/16 at 16:01; Status DC Sertraline HCl (Zoloft) 25 mg DAILY PO Last administered on 09/23/16 09:12; Start 09/19/16 at 09:00 Warfarin Sodium (Coumadin - No Dose Today) 1 each 1X WARF ONCE MC Last administered on 09/19/16 14:14; Start 09/19/16 at 16:00; Stop 09/19/16 at 16:02 ; Status DC Quetiapine Fumarate (SEROquel) 25 mg QHS PO Last administered on 09/23/16 19: 10; Start 09/20/16 at 21:00 Warfarin Sodium (Coumadin) 2.5 mg 1X WARF ONCE PO Last administered on 16:31; Start 09/20/16 at 16:00; Stop 09/20/16 at 16:01; Status DC Valproic Acid (Depakene) 250 mg BID PO Last administered on 09/23/16 19:10; Start 09/20/16 at 21:00 Warfarin Sodium (Coumadin) 2.5 mg 1X WARF ONCE PO Last administered on 16:02; Start 09/21/16 at 16:00; Stop 09/21/16 at 16:01; Status DC Warfarin Sodium (Coumadin) 1 mg 1X WARF ONCE PO Last administered on 16:02; Start 09/21/16 at 16:00; Stop 09/21/16 at 16:01; Status DC Mirtazapine (Remeron) 7.5 mg QHS PO Last administered on 09/23/16 19:10; Start 5/19/17 at 21:00 Warfarin Sodium (Coumadin) 4 mg 1X WARF ONCE PO Last administered on t 16:31; Start 09/22/16 at 16:00; Stop 09/22/16 at 16:01; Status DC Warfarin Sodium (Coumadin) 4 mg 1X WARF ONCE PO Last administered on t 15:42; Start 09/23/16 at 16:00; Stop 09/23/16 at 16:01; Status DC Active Scripts Active Reported Therems-M (Multivits, W-Fe,Other Min) 1 Each Tablet 1 Each PO DAILY Tamsulosin Hcl 0.4 Mg Cap.er.24h 0.4 Mg PO DAILY Lisinopril 5 Mg Tablet 5 Mg PO DAILY Famotidine 20 Mg Tablet 20 Mg PO DAILY Emsam (Selegiline) 1 Each Patch.td24 1 Each TD DAILY Aspirin 81 Mg Tab.chew 81 Mg PO DAILY Amiodarone Hcl 200 Mg Tablet 100 Mg PO DAILY Depakote (Divalproex Sodium) 250 Mg Tablet.dr 250 Mg PO BID Coumadin (Warfarin Sodium) 4 Mg Tablet 4.5 Mg PO DAILY Ativan (Lorazepam) 0.5 Mg Tablet 0.5 Mg PO PRN BID PRN Imodium A-D (Loperamide HCl) 2 Mg Capsule 2 Mg PO PRN PRN MDD 12 mg Ativan (Lorazepam) 1 Mg Tablet 1 Mg PO BID Buspirone Hcl 7.5 Mg Tablet 7.5 Mg PO BID LINDSAY BROWN MD September 23, 2016 19:47
--- NOTE | 2016-09-23 23:00 | NUR ---
Nursing Note: Received Phone call from BRAD, Dana Moralez at this time. She was updated on patient's behavior and assessment this evening. Dana expressed concern that during [id number] visit with Kisha Moralez ([facility]) it was reported to her that the patient appeared to be upset and pacing, and almost tearful and the patient made the statement that he wanted to go home. When Kisha attempted to explain to patient why this was not possible, the patient became angry and stated that he'd rather than to not go home. Dana reassured and verbalized understanding that patient is doing well upon this shift and the aforementioned concern would be communicated to Dr. Hadley. Will follow.
[2016-09-24 06:07] VITALS: BP 131/92
[2016-09-24 06:53] LABS: BASO # 0.1 x10^3/uL (0.0-0.2); BASO % 1 % (0-3); EOS # 0.2 x10^3/uL (0.0-0.7); EOS % 3 % (0-3); HEMOGLOBIN 12.3 g/dL (13.0-17.5); LYMPH # 1.7 x10^3/uL (1.0-4.8); LYMPH % 23 % (24-48); MEAN CORPUSCULAR HEMOGLOBIN 29 pg (25-35); MEAN CORPUSCULAR HGB CONC 33 g/dL (31-37); MEAN CORPUSCULAR VOLUME 87 fL (79-100); MONO # 0.7 x10^3/uL (0.0-1.1); MONO % 10 % (0-9); NEUT # 4.6 x10^3uL (1.8-7.7); NEUT % 63 % (31-73); PLATELET COUNT 166 x10^3/uL (140-400); RED BLOOD COUNT 4.25 x10^6/uL (4.30-5.70); RED CELL DISTRIBUTION WIDTH 15.1 % (11.5-14.5); WHITE BLOOD COUNT 7.2 x10^3/uL (4.0-11.0)
[2016-09-24 07:18] LABS: ALBUMIN 3.3 g/dL (3.4-5.0); ALBUMIN/GLOBULIN RATIO 0.9 (1.0-1.7); ALK PHOS 53 U/L (46-116); ALT (SGPT) 15 U/L (16-63); ANION GAP 10 (6-14); AST (SGOT) 17 U/L (15-37); BLOOD UREA NITROGEN 24 mg/dL (8-26); BUN/CREATININE RATIO 20 (6-20); CALCIUM 8.9 mg/dL (8.5-10.1); CARBON DIOXIDE 25 mmol/L (21-32); CHLORIDE 107 mmol/L (98-107); CREATININE 1.2 mg/dL (0.7-1.3); GFR 59.2; GLUCOSE 91 mg/dL (70-99); MAGNESIUM 2.1 mg/dL (1.8-2.4); POTASSIUM 4.5 mmol/L (3.5-5.1); SODIUM 142 mmol/L (136-145); TOTAL BILIRUBIN 0.8 mg/dL (0.2-1.0); TOTAL PROTEIN 7.1 g/dL (6.4-8.2)
[2016-09-24 07:19] LABS: VAL ACID 29 mcg/mL (50-100)
[2016-09-24] MEDS: SERTRALINE 25 MG TABLET. PO SCH (07:43)
[2016-09-24] MEDS: LORazepam 0.5 MG TABLET PO SCH ×2 (07:43→19:38)
[2016-09-24] MEDS: TAMSULOSIN 0.4 MG CAP.ER.24H. PO SCH (07:43)
[2016-09-24] MEDS: LISINOPRIL 5 MG TABLET. PO SCH (07:43)
[2016-09-24] MEDS: FAMOTIDINE 20 MG TABLET PO SCH (07:43)
[2016-09-24] MEDS: MULTIVITAMIN with MINERAL TABLET. PO SCH (07:43)
[2016-09-24] MEDS: AMIODARONE HCL 200 MG TABLET PO SCH (07:44)
[2016-09-24] MEDS: VALPROATE ACID 250 MG/5 ML ORAL SOLUTION PO SCH ×2 (07:45→20:53)
[2016-09-24] MEDS: busPIRone 15 MG TABLET. PO SCH ×2 (07:45→19:38)
[2016-09-24] MEDS: ASPIRIN 81 MG TAB.CHEW PO SCH (07:45)
[2016-09-24] MEDS: SELEGILINE 5 MG PO SCH (07:47)
[2016-09-24] MEDS: NYSTATIN TOPICAL POWDER 30GM BOTTLE. TP SCH ×3 (07:48→20:54)
--- NOTE | 2016-09-24 10:46 | NUR ---
Group Note [facility] Group Type [facility]GAME Start Time: 09:40 End Time: 10:20 Problem: Depression Purpose: Increase Stimulation, Increase socialization, express thoughts/feelings Level of Participation: high Behaviors or Symptoms Observed: Pts sat within group and answered questions from the UNGAME and shared experiences and thoughts and feelings around questions that were asked. Interventions: Directed Focus Plan: group Additional Comments:
--- NOTE | 2016-09-24 11:00 | NUR ---
Nursing: Patient spoke with Dana on the telephone per patient request. [phone]. Patient participated in group with other residents.
--- NOTE | 2016-09-24 11:25 | NUR ---
THERAPEUTIC RECREATION GROUP NOTE TITLE :Movement to Music: Flexibility ACTIVITY : Movement/ Exercise GOAL : Increase morale, attention, flexibility. Decrease stress/anxiety. DURATION : 30 Minutes RESPONSE : No participation.
--- NOTE | 2016-09-24 13:45 | NUR ---
Pharmacy Warfarin Dosing Note S:Pharmacy consulted to assist with anticoagulation therapy started 09/13/16 with target INR: 2 -3 O:ABBEY MATHIS is a 76 year old M with Stroke LABS: Last INR: 2.3 Last HGB: 12.3 Last HCT: 37 Last PLT: 166 Last dose of 4 mg given on 09/23/16 at 1542 Previous Regimen: 4.5MG HOME WARFARIN DOSE Vitamin K given: N Drug Interaction Changes: Same Interacting Drug Ongoing Drug Interactions: AMIODARONE A:INR Within desired Range. Target Range for this patient is: 2 -3 P: Warfarin dose: 4 mg DAILY 1600 Bridge Therapy: None Next INR due 09/26/16 AM Pharmacy anticoagulation service will continue to follow. YAHAIRA SPEAR, 09/24/16 0193
--- NOTE | 2016-09-24 14:45 | NUR ---
THERAPEUTIC RECREATION GROUP NOTE TITLE :Coffee Filter Poppy Silvestre ACTIVITY : Arts and [employer]s GOAL : Increase socialization, fine motor skills, creativity DURATION : 105 Minutes RESPONSE : No participation.
--- NOTE | 2016-09-24 16:05 | NUR ---
Behavior Intervention Response and Plan: BIRP Note: Behavior: Assumed Care of patient, patient located in Chair at shift change. Patient exhibited the following behavior Disorganized, Irritable, Agitated. Brief assessment on rounds of vital signs, medication needs, lab studies, and pain. Treatment plan problems 1-3. Intervention: Patient assessed and the following interventions initiated safety checks 15 Minute Checks Head to toe Assessment , Cognitive Assessment , Medications. Response: After interactions and interventions patient responded in the following manner, Wandering , Exit Seeking. Continue to assess behaviors and condition will continue to monitor throughout the shift as needed. Plan: Continue to monitor Master Treatment Plan for patient's progress toward short term goals of Decreased Anxiety, Improved Mood, terminal block assembler goals to return to previous living setting vs placement. Continue to assess patient for changes in above assessment. Monitor for medication needs, pain, and safety concerns. Hourly rounding performed to ensure safe environment.
[2016-09-24] MEDS: WARFARIN 4 MG TABLET. PO SCH (16:26)
[2016-09-24 16:52] VITALS: BP 120/72
[2016-09-24] MEDS: QUEtiapine 25 MG TABLET. PO SCH (19:38)
[2016-09-24] MEDS: MIRTAZAPINE 7.5 MG TABLET. PO SCH (19:38)
--- NOTE | 2016-09-24 19:45 | NUR ---
Behavior Intervention Response and Plan: BIRP Note: Behavior: Assumed Care of patient, patient located in Day Room at shift change. Patient exhibited the following behavior Confused, Disoriented, Irritable, agitated, resistive, aggressive. Brief assessment on rounds of vital signs, medication needs, lab studies, and pain. Treatment plan problems: DTO and Fall Risk. Intervention: Patient assessed and the following interventions initiated safety checks 15 Minute Checks Cognitive Assessment , Head to toe Assessment , Medications, Oral Hydration, and Nutrition. Response: After interactions and interventions patient responded in the following manner, Calm , confused, Disoriented. Continue to assess behaviors and condition will continue to monitor throughout the shift as needed. Plan: Continue to monitor Master Treatment Plan for patient's progress toward short term goals of Decreased Anxiety, Medication Compliance, Improved Mood, long term care pharmacist goals to return to previous living setting vs placement. Continue to assess patient for changes in above assessment. Monitor for medication needs, pain, and safety concerns. Hourly rounding performed to ensure safe environment.
--- NOTE | 2016-09-24 20:02 | PDOC ---
Exam Blake Demential Exam: Blake Note: Please also refer to the separate dictated note~for this date of service dictated separately.~Patient seen individually. Discussed the patient with Nursing staff reviewed the chart.~Reviewed interim history and current functioning. Reviewed vital signs,~Labs/ Radiology~and current medications noted below. Continue current treatment with the changes noted in the dictated addendum note Assessment: Vital Signs: Vital Signs Date Time Temp Pulse Resp B/P (MAP) Pulse Ox O2 Delivery O2 Flow Rate FiO2 09/24/16 16:52 97.8 96 17 120/72 (88) 97 Room Air 09/19/16 06:18 95.0 I&O Intake and Output 09/24/16 07:00 Intake Total 1440 ml Balance 1440 ml Intake Oral 1440 ml Labs: Laboratory Tests Test 09/24/16 06:25 White Blood Count 7.2 x10^3/uL (4.0-11.0) Red Blood Count 4.25 x10^6/uL (4.30-5.70) L Hemoglobin 12.3 g/dL (13.0-17.5) L Hematocrit 37.0 % (39.0-53.0) L Mean Corpuscular Volume 87 fL (79-100) Mean Corpuscular Hemoglobin 29 pg (25-35) Mean Corpuscular Hemoglobin Concent 33 g/dL (31-37) Red Cell Distribution Width 15.1 % (11.5-14.5) H Platelet Count 166 x10^3/uL (140-400) Neutrophils (%) (Auto) 63 % (31-73) Lymphocytes (%) (Auto) 23 % (24-48) L Monocytes (%) (Auto) 10 % (0-9) H Eosinophils (%) (Auto) 3 % (0-3) Basophils (%) (Auto) 1 % (0-3) Neutrophils # (Auto) 4.6 x10^3uL (1.8-7.7) Lymphocytes # (Auto) 1.7 x10^3/uL (1.0-4.8) Monocytes # (Auto) 0.7 x10^3/uL (0.0-1.1) Eosinophils # (Auto) 0.2 x10^3/uL (0.0-0.7) Basophils # (Auto) 0.1 x10^3/uL (0.0-0.2) Prothrombin Time 23.4 SEC (9.4-11.4) H Prothrombin Time INR 2.3 (0.9-1.1) H Sodium Level 142 mmol/L (136-145) Potassium Level 4.5 mmol/L (3.5-5.1) Chloride Level 107 mmol/L (98-107) Carbon Dioxide Level 25 mmol/L (21-32) Anion Gap 10 (6-14) Blood Urea Nitrogen 24 mg/dL (8-26) Creatinine 1.2 mg/dL (0.7-1.3) Estimated GFR (Cockcroft-Gault) 59.2 BUN/Creatinine Ratio 20 (6-20) Glucose Level 91 mg/dL (70-99) Calcium Level 8.9 mg/dL (8.5-10.1) Magnesium Level 2.1 mg/dL (1.8-2.4) Total Bilirubin 0.8 mg/dL (0.2-1.0) Aspartate Amino Transferase (AST) 17 U/L (15-37) Alanine Aminotransferase (ALT) 15 U/L (16-63) L Alkaline Phosphatase 53 U/L (46-116) Total Protein 7.1 g/dL (6.4-8.2) Albumin 3.3 g/dL (3.4-5.0) L Albumin/Globulin Ratio 0.9 (1.0-1.7) L Valproic Acid Level 29 mcg/mL (50-100) L Valproic Acid Last Dose Date 09/23/2016 Valproic Acid Last Dose Time 2100 Current Medications: Meds: Current Medications Acetaminophen (Tylenol) 650 mg PRN Q6HRS PRN PO PAIN / TEMP Last administered on 09/15/16t 20:02; Start 09/12/16 at 19:15 Multi-Ingredient Ointment (Analgesic [place]) 1 wilfredo PRN QID PRN TP MUSCLE PAIN; Start 09/12/16 at 19:15 Al Hydroxide/Mg Hydroxide (Mylanta Plus Xs) 15 ml PRN AFTMEALHC PRN PO DYSPEPSIA; Start 09/12/16 at 19:15 Magnesium Hydroxide (Milk Of Magnesia) 2,400 mg PRN QHS PRN PO CONSTIPATION; Start 09/12/16 at 19:15 Divalproex Sodium (Depakote) 250 mg BID PO Last administered on 09/20/16 08:38 ; Start 09/12/16 at 21:00; Stop 09/20/16 at 10:41; Status DC Lorazepam (Ativan) 0.5 mg PRN BID PRN PO ANXIETY / AGITATION Last administered on 09/14/16 01:11; Start 09/12/16 at 19:45 Lorazepam (Ativan) 1 mg BID PO Last administered on 09/17/16 08:49; Start 02/19 at 21:00; Stop 09/17/16 at 18:05; Status DC Selegiline HCl (Emsam) 1 patch DAILY TD ; Start 09/13/16 at 09:00; Stop at 18:35; Status DC Buspirone HCl (Buspar) 7.5 mg BID PO Last administered on 09/24/16 19:38; Start 09/12/16 at 21:00 Amiodarone HCl (Cordarone) 100 mg DAILY PO Last administered on 09/24/16 07:44 ; Start 09/13/16 at 09:00 Aspirin (Children'S Aspirin) 81 mg DAILY PO Last administered on 09/24/16 07: 45; Start 09/13/16 at 09:00 Famotidine (Pepcid) 20 mg DAILY PO Last administered on 09/24/16 07:43; Start 09/13/16 at 09:00 Lisinopril (Prinivil) 5 mg DAILY PO Last administered on 09/24/16 07:43; Start 09/13/16 at 09:00 Loperamide HCl (Imodium) 2 mg PRN Q4HRS PRN PO DIARRHEA; Start 09/12/16 at 19: 45 Tamsulosin HCl (Flomax) 0.4 mg DAILY PO Last administered on 09/24/16 07:43; Start 09/13/16 at 09:00 Warfarin Sodium (Coumadin) 2.5 mg DAILY16 PO Last administered on 09/14/16 16: 05; Start 09/13/16 at 16:00; Stop 09/15/16 at 15:03; Status DC Multivitamins/ Calcium (Thera-M Plus) 1 tab DAILY PO Last administered on 07:43; Start 09/13/16 at 09:00 Warfarin Sodium (Coumadin) 2 mg DAILY16 PO Last administered on 09/14/16 16:06 ; Start 09/13/16 at 16:00; Stop 09/15/16 at 15:02; Status DC Warfarin Sodium (Coumadin Per Pharmacy) 1 each PRN DAILY PRN MC SEE COMMENTS Last administered on 09/24/16 13:44; Start 09/13/16 at 03:15 Vitamin D (Vitamin D3) 50,000 unit WEEKLY PO Last administered on 09/21/16 09: 18; Start 09/14/16 at 09:00 Selegiline HCl (Eldepryl) 5 mg DAILY PO Last administered on 09/24/16 07:47; Start 09/14/16 at 09:00 Trazodone HCl (Desyrel) 50 mg PRN QHS PRN PO INSOMNIA, MAY REPEAT X1 Last administered on 09/20/16 23:11; Start 09/14/16 at 19:15 Nystatin (Nystop) 1 wilfredo BID TP Last administered on 09/23/16 19:11; Start at 09:00 Nystatin (Nystop) 30 wilfredo STK-MED ONCE TP Last administered on 09/14/16 21:27; Start 09/14/16 at 21:27; Stop 09/14/16 at 21:28; Status DC Warfarin Sodium (Coumadin) 3 mg 1X WARF ONCE PO Last administered on 15:48; Start 09/15/16 at 16:00; Stop 09/15/16 at 16:01; Status DC Warfarin Sodium (Coumadin) 2.5 mg 1X ONCE PO Last administered on 09/15/16 15 :47; Start 09/15/16 at 15:15; Stop 09/15/16 at 15:17; Status DC Warfarin Sodium (Coumadin) 5 mg 1X WARF ONCE PO Last administered on 18:16; Start 09/16/16 at 16:00; Stop 09/16/16 at 16:01; Status DC Warfarin Sodium (Coumadin) 2 mg 1X WARF ONCE PO Last administered on 16:02; Start 09/17/16 at 16:00; Stop 09/17/16 at 16:01; Status DC Warfarin Sodium (Coumadin) 2.5 mg 1X WARF ONCE PO Last administered on 16:03; Start 09/17/16 at 16:00; Stop 09/17/16 at 16:01; Status DC Lorazepam (Ativan) 0.5 mg TID PO Last administered on 09/20/16 20:45; Start at 21:00; Stop 09/20/16 at 21:00; Status DC Lorazepam (Ativan) 0.5 mg BID PO Last administered on 09/24/16 19:38; Start at 09:00; Stop 09/24/16 at 21:00 Lorazepam (Ativan) 0.5 mg DAILY PO ; Start 09/25/16 at 09:00; Stop 09/28/16 at 21:00 Warfarin Sodium (Coumadin) 2.5 mg 1X WARF ONCE PO Last administered on 14:58; Start 09/18/16 at 16:00; Stop 09/18/16 at 16:01; Status DC Warfarin Sodium (Coumadin) 2 mg 1X WARF ONCE PO Last administered on 14:59; Start 09/18/16 at 16:00; Stop 09/18/16 at 16:01; Status DC Sertraline HCl (Zoloft) 25 mg DAILY PO Last administered on 09/24/16 07:43; Start 09/19/16 at 09:00; Stop 09/24/16 at 18:00; Status DC Warfarin Sodium (Coumadin - No Dose Today) 1 each 1X WARF ONCE MC Last administered on 09/19/16 14:14; Start 09/19/16 at 16:00; Stop 09/19/16 at 16:02 ; Status DC Quetiapine Fumarate (SEROquel) 25 mg QHS PO Last administered on 09/24/16 19: 38; Start 09/20/16 at 21:00 Warfarin Sodium (Coumadin) 2.5 mg 1X WARF ONCE PO Last administered on 16:31; Start 09/20/16 at 16:00; Stop 09/20/16 at 16:01; Status DC Valproic Acid (Depakene) 250 mg BID PO Last administered on 09/24/16 07:45; Start 09/20/16 at 21:00 Warfarin Sodium (Coumadin) 2.5 mg 1X WARF ONCE PO Last administered on 16:02; Start 09/21/16 at 16:00; Stop 09/21/16 at 16:01; Status DC Warfarin Sodium (Coumadin) 1 mg 1X WARF ONCE PO Last administered on 16:02; Start 09/21/16 at 16:00; Stop 09/21/16 at 16:01; Status DC Mirtazapine (Remeron) 7.5 mg QHS PO Last administered on 09/24/16 19:38; Start 09/21/16 at 21:00 Warfarin Sodium (Coumadin) 4 mg 1X WARF ONCE PO Last administered on 16:31; Start 09/22/16 at 16:00; Stop 09/22/16 at 16:01; Status DC Warfarin Sodium (Coumadin) 4 mg 1X WARF ONCE PO Last administered on 15:42; Start 09/23/16 at 16:00; Stop 09/23/16 at 16:01; Status DC Warfarin Sodium (Coumadin) 4 mg DAILY16 PO Last administered on 09/24/16 16:26 ; Start 09/24/16 at 16:00 Sertraline HCl (Zoloft) 50 mg DAILY PO ; Start 09/25/16 at 09:00 Active Scripts Active Reported Therems-M (Multivits, W-Fe,Other Min) 1 Each Tablet 1 Each PO DAILY Tamsulosin Hcl 0.4 Mg Cap.er.24h 0.4 Mg PO DAILY Lisinopril 5 Mg Tablet 5 Mg PO DAILY Famotidine 20 Mg Tablet 20 Mg PO DAILY Emsam (Selegiline) 1 Each Patch.td24 1 Each TD DAILY Aspirin 81 Mg Tab.chew 81 Mg PO DAILY Amiodarone Hcl 200 Mg Tablet 100 Mg PO DAILY Depakote (Divalproex Sodium) 250 Mg Tablet.dr 250 Mg PO BID Coumadin (Warfarin Sodium) 4 Mg Tablet 4.5 Mg PO DAILY Ativan (Lorazepam) 0.5 Mg Tablet 0.5 Mg PO PRN BID PRN Imodium A-D (Loperamide HCl) 2 Mg Capsule 2 Mg PO PRN PRN MDD 12 mg Ativan (Lorazepam) 1 Mg Tablet 1 Mg PO BID Buspirone Hcl 7.5 Mg Tablet 7.5 Mg PO BID LINDSAY BROWN MD September 24, 2016 20:02
--- NOTE | 2016-09-25 00:45 | PN ---
DATE: 09/21/2016 PSYCHIATRIC PROGRESS NOTE This is late entry of 09/21/2016, covers elements not covered in my initial note. SUBJECTIVE: The patient slept 4-3/4 hours previous night, remains confused, calm, cooperative, states he is homesick. REVIEW OF SYSTEMS: No CV, , pulmonary, eye system symptoms on review. MENTAL STATUS EXAMINATION: Oriented to himself. Insight, judgment, recent memory is impaired. Mood is better. 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 Abstraction fair, computation impaired, language function intact. Mood and affect somewhat anxious, labile. LABORATORY DATA: Reviewed. IMPRESSION: Unchanged from initial note. PLAN: Start Remeron 7.5 mg at bedtime, maintain the rest of the psychotropics, adjust further as clinically indicated. MAN Phoenix BROWN MD DR: JEREL/tavo JOB#: [id number] / [id number]
--- NOTE | 2016-09-25 00:52 | PN ---
DATE: 09/22/2016 PSYCHIATRIC PROGRESS NOTE This is late entry of 09/22/2016, covers elements not covered in my initial note. 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 REVIEW OF SYSTEMS: No CV, , pulmonary, eye system symptoms on review. MENTAL STATUS EXAMINATION: Oriented to himself and situation. Speech coherent, pleasant, smiling. Abstraction fair, computation impaired, language function intact, attention span short. Mood and affect remain somewhat anxious, labile. LABORATORY DATA: Reviewed. IMPRESSION: Unchanged from initial note. PLAN: Change the Remeron to sublingual to help with compliance. Make further adjustments as clinically indicated. LINDSAY BROWN MD DR: JEREL/tavo JOB#: [id number] / [id number]
--- NOTE | 2016-09-25 00:55 | PN ---
DATE: 09/23/2016 PSYCHIATRIC PROGRESS NOTE This is late entry of 09/23/2016, covers elements not covered in my initial note. SUBJECTIVE: The patient remains confused, remote memory is better than recent, calm, compliant with medications, little drowsy at times. REVIEW OF SYSTEMS: No CV, , pulmonary, eye system symptoms on review. Reliability varies. MENTAL STATUS EXAMINATION: Oriented to himself. Insight, judgment, recent memory is impaired. Language function intact, attention span short, mood and affect showing improvement. LABORATORY DATA: Reviewed. IMPRESSION: Unchanged from initial note. PLAN: Continue psychotropics mentioned in my initial note. Follow labs level on the Depakote, adjust with therapeutic level. LINDSAY BROWN MD DR: JREEL/tavo JOB#: [id number] / [id number]
[2016-09-25] MEDS: LORazepam 0.5 MG TABLET PO PRN (02:41)
[2016-09-25] MEDS: traZODone 50 MG TABLET. PO PRN (02:41)
--- NOTE | 2016-09-25 02:41 | NUR ---
Nursing Note: Patient awake at this time; agitated, aggressive, cursing, stating that his armband is a tracking device and that nursing staff stole his gold watch. Attempted to reorient and redirect, patient but this only escalated his behavior. Patient requested ice water and therefore, PRN Ativan and Trazodone given via his beverage. Patient monitored in Day Room. Will reassess.
--- NOTE | 2016-09-25 03:45 | NUR ---
Nursing Note: Patient back to sleep in room. No s/s pain/discomfort/acute distress. Will continue to monitor.
--- NOTE | 2016-09-25 06:00 | NUR ---
Nursing Note: Patient calm, interactive and cooperative with ADLs and lab draw. Still confused; but pleasant. Nursing to continue to monitor.
[2016-09-25 06:17] VITALS: BP 149/88
[2016-09-25] MEDS: ASPIRIN 81 MG TAB.CHEW PO SCH (09:27)
[2016-09-25] MEDS: TAMSULOSIN 0.4 MG CAP.ER.24H. PO SCH (09:27)
[2016-09-25] MEDS: LISINOPRIL 5 MG TABLET. PO SCH (09:27)
[2016-09-25] MEDS: busPIRone 15 MG TABLET. PO SCH ×2 (09:27→19:09)
[2016-09-25] MEDS: AMIODARONE HCL 200 MG TABLET PO SCH (09:28)
[2016-09-25] MEDS: MULTIVITAMIN with MINERAL TABLET. PO SCH (09:28)
[2016-09-25] MEDS: FAMOTIDINE 20 MG TABLET PO SCH (09:28)
[2016-09-25] MEDS: VALPROATE ACID 250 MG/5 ML ORAL SOLUTION PO SCH ×2 (09:29→19:09)
[2016-09-25] MEDS: SELEGILINE 5 MG PO SCH (09:31)
[2016-09-25] MEDS: LORazepam 0.5 MG TABLET PO SCH (09:31)
[2016-09-25] MEDS: SERTRALINE 50 MG TABLET. PO SCH (09:31)
[2016-09-25] MEDS: NYSTATIN TOPICAL POWDER 30GM BOTTLE. TP SCH ×2 (09:36→19:10)
--- NOTE | 2016-09-25 12:33 | NUR ---
PAULINE GROUP NOTE TITLE: Jenga! ACTIVITY: Jenga blocks w/various prompts to be answered by the group. DURATION: 45 minutes TARGET BEHAVIOR: Cognitive, social skills, coordination/skill, directed focus, reminisce, therapeutic expression RESPONSE: Observed group, and when asked questions, Pt. attempted to answer. Pt. was actively engaged w/the appropriate emotions such as when the blocks tumbled or were rebuilt.
[2016-09-25 12:34] LABS: BACTERIA,URINE FEW /HPF (0-FEW); BILIRUBIN,URINE NEG (NEG); CLARITY,URINE HAZY; COLOR,URINE YELLOW; GLUCOSE,URINE NEG (NEG); NITRITE,URINE NEG (NEG); RBC,URINE OCC /HPF (0-2); SQUAMOUS EPITHELIAL CELL,UR OCC /LPF; UROBILINOGEN,URINE 0.2 mg/dL (0.2 mg/dL); WBC,URINE OCC /HPF (0-4)
--- NOTE | 2016-09-25 12:47 | NUR ---
Pharmacy Warfarin Dosing Note S:Pharmacy consulted to assist with anticoagulation therapy started 09/13/16 with target INR: 2 -3 O:ABBEY MATHIS is a 76 year old M with Stroke LABS: Last INR: 2 Last HGB: 12.3 Last HCT: 37 Last PLT: 166 Last dose of 4 mg given on 09/24/16 at 1600 Previous Regimen: 4.5MG HOME DOSE Vitamin K given: N Drug Interaction Changes: Same Interacting Drug Ongoing Drug Interactions: AMIODARONE A:INR Within desired Range. Target Range for this patient is: 2 -3 P: Warfarin dose: 4 mg Today at 1600 Bridge Therapy: None Next INR due 09/26/16 @0600, if stable, may be able to monitor INR q MWF Pharmacy anticoagulation service will continue to follow. [facility], 09/25/16 [id number]
--- NOTE | 2016-09-25 14:00 | NUR ---
THERAPEUTIC RECREATION GROUP NOTE TITLE :Dance and Sing along with Deidra-Patriotic Songs/ Poppy Recognition ACTIVITY : Music GOAL : Increase socialization, elevate mood, stimulate memory DURATION : 60 Minutes RESPONSE : Minimal participation. Pt. was with group the entire time but did not sing. He occasionally tapped foot to music. He was pleasant the entire time but confused, wanted to go home.
--- NOTE | 2016-09-25 15:16 | NUR ---
Behavior Intervention Response and Plan: BIRP Note: Behavior: Assumed Care of patient, patient located in Day Room at shift change. Patient exhibited the following behavior Wandering, Compulsive, Compliant. Brief assessment on rounds of vital signs, medication needs, lab studies, and pain. Treatment plan problems 1 and 2. Intervention: Patient assessed and the following interventions initiated safety checks 15 Minute Checks Head to toe Assessment , Medications , Cognitive Assessment. Response: After interactions and interventions patient responded in the following manner, Cooperative , Interactive ,Defensive. Continue to assess behaviors and condition will continue to monitor throughout the shift as needed. Plan: Continue to monitor Master Treatment Plan for patient's progress toward short term goals of Decreased Agitation, Improved Mood, fish header goals to return to previous living setting vs placement. Continue to assess patient for changes in above assessment. Monitor for medication needs, pain, and safety concerns. Hourly rounding performed to ensure safe environment.
[2016-09-25] MEDS: WARFARIN 4 MG TABLET. PO SCH (16:00)
--- NOTE | 2016-09-25 16:14 | NUR ---
Group Note [facility] Group Type "What is your Shell" Start Time: 9:30 End Time: 10:50 Problem: Anxiety Purpose: Express Feelings, Increase socialization, Increase self awareness Level of Participation: High Group: In observation of National turtle awareness day, Pts discussed facts about turtle, then directed to talk about qualities a turtle has such as "non-assertive",what "non assertive" looks like. Why a turtle has a shell- related the turtles shell to what each pts "shell" looks like. While discussing this pts colored and put together their own turtle. Interventions: Directed Focus, Clarification Plan: Group Participation, higher level Additional Comments: Pt participated in coloring of the turtle as well as parts of the conversation he could participate in. Pt would answer questions directed towards him, if he didn't know an answer he would smile and shake his head.
[2016-09-25 16:30] VITALS: BP 122/79
[2016-09-25] MEDS: MIRTAZAPINE 7.5 MG TABLET. PO SCH (19:09)
[2016-09-25] MEDS: QUEtiapine 25 MG TABLET. PO SCH (19:10)
--- NOTE | 2016-09-25 20:16 | NUR ---
Behavior Intervention Response and Plan: BIRP Note: Behavior: Assumed Care of patient, patient located in Patient Room at shift change. Patient exhibited the following behavior Calm, Able to Focus on Task, Appropriate. Brief assessment on rounds of vital signs, medication needs, lab studies, and pain. Treatment plan problems . Intervention: Patient assessed and the following interventions initiated safety checks 15 Minute Checks Cognitive Assessment , Head to toe Assessment , Medications. Response: After interactions and interventions patient responded in the following manner, Compliant , Cooperative ,Social. Continue to assess behaviors and condition will continue to monitor throughout the shift as needed. Plan: Continue to monitor Master Treatment Plan for patient's progress toward short term goals of Medication Compliance, Decreased Anxiety, penitentiary goals to return to previous living setting vs placement. Continue to assess patient for changes in above assessment. Monitor for medication needs, pain, and safety concerns. Hourly rounding performed to ensure safe environment.
--- NOTE | 2016-09-25 21:09 | PDOC ---
Exam Blake Demential Exam: Blake Note: Please also refer to the separate dictated note~for this date of service dictated separately.~Patient seen individually. Discussed the patient with Nursing staff reviewed the chart.~Reviewed interim history and current functioning. Reviewed vital signs,~Labs/ Radiology~and current medications noted below. Continue current treatment with the changes noted in the dictated addendum note Assessment: Vital Signs: Vital Signs Date Time Temp Pulse Resp B/P (MAP) Pulse Ox O2 Delivery O2 Flow Rate FiO2 09/25/16 16:30 98.6 99 20 122/79 (93) 96 09/24/16 16:52 Room Air I&O Intake and Output 09/25/16 07:00 Intake Total 960 ml Balance 960 ml Intake Oral 960 ml Labs: Laboratory Tests Test 09/25/16 06:02 09/25/16 12:20 Prothrombin Time 20.6 SEC (9.4-11.4) H Prothrombin Time INR 2.0 (0.9-1.1) H Urine Collection Type Clean catch Urine Color Yellow Urine Clarity Hazy Urine pH 6.0 Urine Specific [place] 1.015 Urine Protein Neg (NEG-TRACE) Urine Glucose (UA) Neg mg/dL (NEG) Urine Ketones (Stick) Neg mg/dL (NEG) Urine Blood Neg (NEG) Urine Nitrite Neg (NEG) Urine Bilirubin Neg (NEG) Urine Urobilinogen Dipstick 0.2 mg/dL (0.2 mg/dL) Urine Leukocyte Esterase Neg (NEG) Urine RBC Occ /HPF (0-2) Urine WBC Occ /HPF (0-4) Urine Squamous Epithelial Cells Occ /LPF Urine Bacteria Few /HPF (0-FEW) Urine Cellular Casts /HPF Urine Mucus Slight /LPF Current Medications: Meds: Current Medications Acetaminophen (Tylenol) 650 mg PRN Q6HRS PRN PO PAIN / TEMP Last administered on 09/15/16t 20:02; Start 09/12/16 at 19:15 Multi-Ingredient Ointment (Analgesic [employer]) 1 wilfredo PRN QID PRN TP MUSCLE PAIN; Start 09/12/16 at 19:15 Al Hydroxide/Mg Hydroxide (Mylanta Plus Xs) 15 ml PRN AFTMEALHC PRN PO DYSPEPSIA; Start 09/12/16 at 19:15 Magnesium Hydroxide (Milk Of Magnesia) 2,400 mg PRN QHS PRN PO CONSTIPATION; Start 09/12/16 at 19:15 Divalproex Sodium (Depakote) 250 mg BID PO Last administered on 09/20/16 08:38 ; Start 09/12/16 at 21:00; Stop 09/20/16 at 10:41; Status DC Lorazepam (Ativan) 0.5 mg PRN BID PRN PO ANXIETY / AGITATION Last administered on 09/25/16 02:41; Start 09/12/16 at 19:45 Lorazepam (Ativan) 1 mg BID PO Last administered on 09/17/16 08:49; Start 02/19 at 21:00; Stop 09/17/16 at 18:05; Status DC Selegiline HCl (Emsam) 1 patch DAILY TD ; Start 09/13/16 at 09:00; Stop at 18:35; Status DC Buspirone HCl (Buspar) 7.5 mg BID PO Last administered on 09/25/16 19:09; Start 09/12/16 at 21:00 Amiodarone HCl (Cordarone) 100 mg DAILY PO Last administered on 09/25/16 09:28 ; Start 09/13/16 at 09:00 Aspirin (Children'S Aspirin) 81 mg DAILY PO Last administered on 09/25/16 09: 27; Start 09/13/16 at 09:00 Famotidine (Pepcid) 20 mg DAILY PO Last administered on 09/25/16 09:28; Start 09/13/16 at 09:00 Lisinopril (Prinivil) 5 mg DAILY PO Last administered on 09/25/16 09:27; Start 09/13/16 at 09:00 Loperamide HCl (Imodium) 2 mg PRN Q4HRS PRN PO DIARRHEA; Start 09/12/16 at 19: 45 Tamsulosin HCl (Flomax) 0.4 mg DAILY PO Last administered on 09/25/16 09:27; Start 09/13/16 at 09:00 Warfarin Sodium (Coumadin) 2.5 mg DAILY16 PO Last administered on 09/14/16 16: 05; Start 09/13/16 at 16:00; Stop 09/15/16 at 15:03; Status DC Multivitamins/ Calcium (Thera-M Plus) 1 tab DAILY PO Last administered on 09:28; Start 09/13/16 at 09:00 Warfarin Sodium (Coumadin) 2 mg DAILY16 PO Last administered on 09/14/16 16:06 ; Start 09/13/16 at 16:00; Stop 09/15/16 at 15:02; Status DC Warfarin Sodium (Coumadin Per Pharmacy) 1 each PRN DAILY PRN MC SEE COMMENTS Last administered on 09/25/16 12:47; Start 09/13/16 at 03:15 Vitamin D (Vitamin D3) 50,000 unit WEEKLY PO Last administered on 09/21/16 09: 18; Start 09/14/16 at 09:00 Selegiline HCl (Eldepryl) 5 mg DAILY PO Last administered on 09/25/16 09:31; Start 09/14/16 at 09:00 Trazodone HCl (Desyrel) 50 mg PRN QHS PRN PO INSOMNIA, MAY REPEAT X1 Last administered on 09/25/16 02:41; Start 09/14/16 at 19:15 Nystatin (Nystop) 1 wilfredo BID TP Last administered on 09/25/16 19:10; Start at 09:00 Nystatin (Nystop) 30 wilfredo STK-MED ONCE TP Last administered on 09/14/16 21:27; Start 09/14/16 at 21:27; Stop 09/14/16 at 21:28; Status DC Warfarin Sodium (Coumadin) 3 mg 1X WARF ONCE PO Last administered on 15:48; Start 09/15/16 at 16:00; Stop 09/15/16 at 16:01; Status DC Warfarin Sodium (Coumadin) 2.5 mg 1X ONCE PO Last administered on 09/15/16 15 :47; Start 09/15/16 at 15:15; Stop 09/15/16 at 15:17; Status DC Warfarin Sodium (Coumadin) 5 mg 1X WARF ONCE PO Last administered on 18:16; Start 09/16/16 at 16:00; Stop 09/16/16 at 16:01; Status DC Warfarin Sodium (Coumadin) 2 mg 1X WARF ONCE PO Last administered on 16:02; Start 09/17/16 at 16:00; Stop 09/17/16 at 16:01; Status DC Warfarin Sodium (Coumadin) 2.5 mg 1X WARF ONCE PO Last administered on 16:03; Start 09/17/16 at 16:00; Stop 09/17/16 at 16:01; Status DC Lorazepam (Ativan) 0.5 mg TID PO Last administered on 09/20/16 20:45; Start at 21:00; Stop 09/20/16 at 21:00; Status DC Lorazepam (Ativan) 0.5 mg BID PO Last administered on 09/24/16 19:38; Start at 09:00; Stop 09/24/16 at 21:01; Status DC Lorazepam (Ativan) 0.5 mg DAILY PO Last administered on 09/25/16 09:31; Start 09/25/16 at 09:00; Stop 09/28/16 at 21:00 Warfarin Sodium (Coumadin) 2.5 mg 1X WARF ONCE PO Last administered on 14:58; Start 09/18/16 at 16:00; Stop 09/18/16 at 16:01; Status DC Warfarin Sodium (Coumadin) 2 mg 1X WARF ONCE PO Last administered on 14:59; Start 09/18/16 at 16:00; Stop 09/18/16 at 16:01; Status DC Sertraline HCl (Zoloft) 25 mg DAILY PO Last administered on 09/24/16 07:43; Start 09/19/16 at 09:00; Stop 09/24/16 at 18:00; Status DC Warfarin Sodium (Coumadin - No Dose Today) 1 each 1X WARF ONCE MC Last administered on 09/19/16 14:14; Start 09/19/16 at 16:00; Stop 09/19/16 at 16:02 ; Status DC Quetiapine Fumarate (SEROquel) 25 mg QHS PO Last administered on 09/25/16 19: 10; Start 09/20/16 at 21:00 Warfarin Sodium (Coumadin) 2.5 mg 1X WARF ONCE PO Last administered on 16:31; Start 09/20/16 at 16:00; Stop 09/20/16 at 16:01; Status DC Valproic Acid (Depakene) 250 mg BID PO Last administered on 09/25/16 09:29; Start 09/20/16 at 21:00; Stop 09/25/16 at 18:06; Status DC Warfarin Sodium (Coumadin) 2.5 mg 1X WARF ONCE PO Last administered on 16:02; Start 09/21/16 at 16:00; Stop 09/21/16 at 16:01; Status DC Warfarin Sodium (Coumadin) 1 mg 1X WARF ONCE PO Last administered on 16:02; Start 09/21/16 at 16:00; Stop 09/21/16 at 16:01; Status DC Mirtazapine (Remeron) 7.5 mg QHS PO Last administered on 09/25/16 19:09; Start 09/21/16 at 21:00 Warfarin Sodium (Coumadin) 4 mg 1X WARF ONCE PO Last administered on 16:31; Start 09/22/16 at 16:00; Stop 09/22/16 at 16:01; Status DC Warfarin Sodium (Coumadin) 4 mg 1X WARF ONCE PO Last administered on 15:42; Start 09/23/16 at 16:00; Stop 09/23/16 at 16:01; Status DC Warfarin Sodium (Coumadin) 4 mg DAILY16 PO Last administered on 09/25/16 16:00 ; Start 09/24/16 at 16:00 Sertraline HCl (Zoloft) 50 mg DAILY PO Last administered on 09/25/16 09:31; Start 09/25/16 at 09:00 Valproic Acid (Depakene) 375 mg BID PO Last administered on 09/25/16 19:09; Start 09/25/16 at 21:00 Active Scripts Active Reported Therems-M (Multivits, W-Fe,Other Min) 1 Each Tablet 1 Each PO DAILY Tamsulosin Hcl 0.4 Mg Cap.er.24h 0.4 Mg PO DAILY Lisinopril 5 Mg Tablet 5 Mg PO DAILY Famotidine 20 Mg Tablet 20 Mg PO DAILY Emsam (Selegiline) 1 Each Patch.td24 1 Each TD DAILY Aspirin 81 Mg Tab.chew 81 Mg PO DAILY Amiodarone Hcl 200 Mg Tablet 100 Mg PO DAILY Depakote (Divalproex Sodium) 250 Mg Tablet.dr 250 Mg PO BID Coumadin (Warfarin Sodium) 4 Mg Tablet 4.5 Mg PO DAILY Ativan (Lorazepam) 0.5 Mg Tablet 0.5 Mg PO PRN BID PRN Imodium A-D (Loperamide HCl) 2 Mg Capsule 2 Mg PO PRN PRN MDD 12 mg Ativan (Lorazepam) 1 Mg Tablet 1 Mg PO BID Buspirone Hcl 7.5 Mg Tablet 7.5 Mg PO BID LINDSAY BROWN MD September 25, 2016 21:09
[2016-09-26 06:17] VITALS: BP 126/87
--- NOTE | 2016-09-26 08:25 | PN ---
DATE: 09/24/2016 PSYCHIATRIC PROGRESS NOTE This is late entry of 09/24/2016, covers elements not covered in my initial note. SUBJECTIVE: The patient slept 7-1/4 hours previous night, confused, wandering, called his , refused meds at times, somewhat withdrawn, as I met with him evening of 09/24/2016 which is unusual for him. 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 REVIEW OF SYSTEMS: No CV, , pulmonary, eye, ENT system symptoms on review. MENTAL STATUS EXAMINATION: Oriented to himself. Insight, judgment, recent memory is impaired. Remote is better. Language function is intact. Mood and affect withdrawn. LABORATORY DATA: Reviewed. IMPRESSION: Major neurocognitive disorder, Alzheimer, vascular with depression, delusion, behavioral disturbance; anxiety disorder, unspecified. Rest unchanged. PLAN: Increase Zoloft from 25 to 50 mg a day, consider changing this to Wellbutrin if he remains withdrawn, maintain Seroquel, Remeron, Depakene. Ativan is being tapered. Maintain BuSpar 7.5 b.i.d., selegiline, trazodone 50 at bedtime. MAN Phoenix BROWN MD DR: JEREL/tavo JOB#: [id number] / [id number]
[2016-09-26] MEDS: SERTRALINE 50 MG TABLET. PO SCH (08:30)
[2016-09-26] MEDS: LORazepam 0.5 MG TABLET PO SCH (08:30)
[2016-09-26] MEDS: VALPROATE ACID 250 MG/5 ML ORAL SOLUTION PO SCH ×2 (08:30→19:21)
[2016-09-26] MEDS: LISINOPRIL 5 MG TABLET. PO SCH (08:31)
[2016-09-26] MEDS: MULTIVITAMIN with MINERAL TABLET. PO SCH (08:31)
[2016-09-26] MEDS: TAMSULOSIN 0.4 MG CAP.ER.24H. PO SCH (08:31)
[2016-09-26] MEDS: busPIRone 15 MG TABLET. PO SCH ×2 (08:31→19:21)
[2016-09-26] MEDS: AMIODARONE HCL 200 MG TABLET PO SCH (08:32)
[2016-09-26] MEDS: ASPIRIN 81 MG TAB.CHEW PO SCH (08:33)
[2016-09-26] MEDS: FAMOTIDINE 20 MG TABLET PO SCH (08:33)
[2016-09-26] MEDS: NYSTATIN TOPICAL POWDER 30GM BOTTLE. TP SCH ×2 (08:35→19:21)
[2016-09-26] MEDS: SELEGILINE 5 MG PO SCH (08:35)
--- NOTE | 2016-09-26 08:53 | NUR ---
Pharmacy Warfarin Dosing Note S:Pharmacy consulted to assist with anticoagulation therapy started 09/13/16 with target INR: 2 -3 O:ABBEY MATHIS is a 76 year old M with Stroke LABS: Last INR: 1.9 Last HGB: 12.3 Last HCT: 37 Last PLT: 166 Last dose of 4 mg given on 09/25/16 at 1600 Previous Regimen: 4.5MG HOME DOSE Vitamin K given: N Drug Interaction Changes: Same Interacting Drug Ongoing Drug Interactions: AMIODARONE A:INR Below desired Range. Target Range for this patient is: 2 -3 P: Warfarin dose: 4.5 Today at 1600 Bridge Therapy: None Next INR due 09/27/16 Pharmacy anticoagulation service will continue to follow. YAHAIRA SPEAR, 09/26/16 0853
--- NOTE | 2016-09-26 09:41 | NUR ---
Behavior Intervention Response and Plan: BIRP Note: Behavior: Assumed Care of patient, patient located in Patient Room at shift change. Patient exhibited the following behavior Disorganized, Wandering, Exit Seeking. Brief assessment on rounds of vital signs, medication needs, lab studies, and pain. Treatment plan problems . Intervention: Patient assessed and the following interventions initiated safety checks 15 Minute Checks Medications , Head to toe Assessment , Oral Hydration. Response: After interactions and interventions patient responded in the following manner, Disorganized , Delusions ,Disorganized. Continue to assess behaviors and condition will continue to monitor throughout the shift as needed. 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 Continue to assess patient for changes in above assessment. Monitor for medication needs, pain, and safety concerns. Hourly rounding performed to ensure safe environment.
--- NOTE | 2016-09-26 10:20 | NUR ---
THERAPEUTIC RECREATION GROUP NOTE TITLE :[place]- Led by Ayan ACTIVITY : Cognitive Stimulation GOAL : Stimulate memory, Increase problem solving DURATION : 60 minutes RESPONSE : No participation.
--- NOTE | 2016-09-26 13:00 | NUR ---
THERAPEUTIC RECREATION GROUP NOTE TITLE :Characteristics of a [place] ACTIVITY : Cognitive Stimulation GOAL : Stimulate memory, Increase problem solving DURATION : 45 minutes RESPONSE : No participation.
[2016-09-26] MEDS: WARFARIN 2.5 MG TABLET. PO SCH (15:30)
[2016-09-26] MEDS: WARFARIN 2 MG TABLET. PO SCH (15:30)
[2016-09-26 16:27] VITALS: BP 114/84
[2016-09-26] MEDS: MIRTAZAPINE 7.5 MG TABLET. PO SCH (19:21)
[2016-09-26] MEDS: QUEtiapine 25 MG TABLET. PO SCH (19:21)
--- NOTE | 2016-09-26 20:29 | NUR ---
Behavior Intervention Response and Plan: BIRP Note: Behavior: Assumed Care of patient, patient located in Day Room at shift change. Patient exhibited the following behavior Calm, Able to Focus on Task, Sleeping. Brief assessment on rounds of vital signs, medication needs, lab studies, and pain. Treatment plan problems . Intervention: Patient assessed and the following interventions initiated safety checks 15 Minute Checks Cognitive Assessment , Head to toe Assessment , Medications. Response: After interactions and interventions patient responded in the following manner, Compliant , Cooperative ,Appropriate. Continue to assess behaviors and condition will continue to monitor throughout the shift as needed. Plan: Continue to monitor Master Treatment Plan for patient's progress toward short term goals of Medication Compliance, Improved Mood, extermination supervisor goals to return to previous living setting vs placement. Continue to assess patient for changes in above assessment. Monitor for medication needs, pain, and safety concerns. Hourly rounding performed to ensure safe environment.
--- NOTE | 2016-09-26 20:58 | PDOC ---
Exam Blake Demential Exam: Blake Note: Please also refer to the separate dictated note~for this date of service dictated separately.~Patient seen individually. Discussed the patient with Nursing staff reviewed the chart.~Reviewed interim history and current functioning. Reviewed vital signs,~Labs/ Radiology~and current medications noted below. Continue current treatment with the changes noted in the dictated addendum note Assessment: Vital Signs: Vital Signs Date Time Temp Pulse Resp B/P (MAP) Pulse Ox O2 Delivery O2 Flow Rate FiO2 09/26/16 16:27 98.0 96 18 114/84 (94) 97 09/24/16 16:52 Room Air I&O Intake and Output 09/26/16 07:00 Intake Total 1080 ml Balance 1080 ml Intake Oral 1080 ml # Voids 2 Labs: Laboratory Tests Test 09/26/16 06:19 Prothrombin Time 20.0 SEC (9.4-11.4) H Prothrombin Time INR 1.9 (0.9-1.1) H Current Medications: Meds: Current Medications Acetaminophen (Tylenol) 650 mg PRN Q6HRS PRN PO PAIN / TEMP Last administered on 09/15/16 20:02; Start 09/12/16 at 19:15 Multi-Ingredient Ointment (Analgesic [place]) 1 wilfredo PRN QID PRN TP MUSCLE PAIN; Start 09/12/16 at 19:15 Al Hydroxide/Mg Hydroxide (Mylanta Plus Xs) 15 ml PRN AFTMEALHC PRN PO DYSPEPSIA; Start 09/12/16 at 19:15 Magnesium Hydroxide (Milk Of Magnesia) 2,400 mg PRN QHS PRN PO CONSTIPATION; Start 09/12/16 at 19:15 Divalproex Sodium (Depakote) 250 mg BID PO Last administered on 09/20/16 08:38 ; Start 09/12/16 at 21:00; Stop 09/20/16 at 10:41; Status DC Lorazepam (Ativan) 0.5 mg PRN BID PRN PO ANXIETY / AGITATION Last administered on 09/25/16 02:41; Start 09/12/16 at 19:45 Lorazepam (Ativan) 1 mg BID PO Last administered on 09/17/16 08:49; Start 02/19 at 21:00; Stop 09/17/16 at 18:05; Status DC Selegiline HCl (Emsam) 1 patch DAILY TD ; Start 09/13/16 at 09:00; Stop at 18:35; Status DC Buspirone HCl (Buspar) 7.5 mg BID PO Last administered on 09/26/16 19:21; Start 09/12/16 at 21:00 Amiodarone HCl (Cordarone) 100 mg DAILY PO Last administered on 09/26/16 08:32 ; Start 09/13/16 at 09:00 Aspirin (Children'S Aspirin) 81 mg DAILY PO Last administered on 09/26/16 08: 33; Start 09/13/16 at 09:00 Famotidine (Pepcid) 20 mg DAILY PO Last administered on 09/26/16 08:33; Start 09/13/16 at 09:00 Lisinopril (Prinivil) 5 mg DAILY PO Last administered on 09/26/16 08:31; Start 09/13/16 at 09:00 Loperamide HCl (Imodium) 2 mg PRN Q4HRS PRN PO DIARRHEA; Start 09/12/16 at 19: 45 Tamsulosin HCl (Flomax) 0.4 mg DAILY PO Last administered on 09/26/16 08:31; Start 09/13/16 at 09:00 Warfarin Sodium (Coumadin) 2.5 mg DAILY16 PO Last administered on 09/14/16 16: 05; Start 09/13/16 at 16:00; Stop 09/15/16 at 15:03; Status DC Multivitamins/ Calcium (Thera-M Plus) 1 tab DAILY PO Last administered on 08:31; Start 09/13/16 at 09:00 Warfarin Sodium (Coumadin) 2 mg DAILY16 PO Last administered on 09/14/16 16:06 ; Start 09/13/16 at 16:00; Stop 09/15/16 at 15:02; Status DC Warfarin Sodium (Coumadin Per Pharmacy) 1 each PRN DAILY PRN MC SEE COMMENTS Last administered on 09/26/16 08:53; Start 09/13/16 at 03:15 Vitamin D (Vitamin D3) 50,000 unit WEEKLY PO Last administered on 09/21/16 09: 18; Start 09/14/16 at 09:00 Selegiline HCl (Eldepryl) 5 mg DAILY PO Last administered on 09/26/16 08:35; Start 09/14/16 at 09:00 Trazodone HCl (Desyrel) 50 mg PRN QHS PRN PO INSOMNIA, MAY REPEAT X1 Last administered on 09/25/16 02:41; Start 09/14/16 at 19:15 Nystatin (Nystop) 1 wilfredo BID TP Last administered on 09/26/16 19:21; Start at 09:00 Nystatin (Nystop) 30 wilfredo STK-MED ONCE TP Last administered on 09/14/16 21:27; Start 09/14/16 at 21:27; Stop 09/14/16 at 21:28; Status DC Warfarin Sodium (Coumadin) 3 mg 1X WARF ONCE PO Last administered on 15:48; Start 09/15/16 at 16:00; Stop 09/15/16 at 16:01; Status DC Warfarin Sodium (Coumadin) 2.5 mg 1X ONCE PO Last administered on 09/15/16 15 :47; Start 09/15/16 at 15:15; Stop 09/15/16 at 15:17; Status DC Warfarin Sodium (Coumadin) 5 mg 1X WARF ONCE PO Last administered on 18:16; Start 09/16/16 at 16:00; Stop 09/16/16 at 16:01; Status DC Warfarin Sodium (Coumadin) 2 mg 1X WARF ONCE PO Last administered on 16:02; Start 09/17/16 at 16:00; Stop 09/17/16 at 16:01; Status DC Warfarin Sodium (Coumadin) 2.5 mg 1X WARF ONCE PO Last administered on 16:03; Start 09/17/16 at 16:00; Stop 09/17/16 at 16:01; Status DC Lorazepam (Ativan) 0.5 mg TID PO Last administered on 09/20/16 20:45; Start at 21:00; Stop 09/20/16 at 21:00; Status DC Lorazepam (Ativan) 0.5 mg BID PO Last administered on 09/24/16 19:38; Start at 09:00; Stop 09/24/16 at 21:01; Status DC Lorazepam (Ativan) 0.5 mg DAILY PO Last administered on 09/26/16 08:30; Start 09/25/16 at 09:00; Stop 09/28/16 at 21:00 Warfarin Sodium (Coumadin) 2.5 mg 1X WARF ONCE PO Last administered on 14:58; Start 09/18/16 at 16:00; Stop 09/18/16 at 16:01; Status DC Warfarin Sodium (Coumadin) 2 mg 1X WARF ONCE PO Last administered on 14:59; Start 09/18/16 at 16:00; Stop 09/18/16 at 16:01; Status DC Sertraline HCl (Zoloft) 25 mg DAILY PO Last administered on 09/24/16 07:43; Start 09/19/16 at 09:00; Stop 09/24/16 at 18:00; Status DC Warfarin Sodium (Coumadin - No Dose Today) 1 each 1X WARF ONCE MC Last administered on 09/19/16 14:14; Start 09/19/16 at 16:00; Stop 09/19/16 at 16:02 ; Status DC Quetiapine Fumarate (SEROquel) 25 mg QHS PO Last administered on 09/26/16 19: 21; Start 09/20/16 at 21:00 Warfarin Sodium (Coumadin) 2.5 mg 1X WARF ONCE PO Last administered on 16:31; Start 09/20/16 at 16:00; Stop 09/20/16 at 16:01; Status DC Valproic Acid (Depakene) 250 mg BID PO Last administered on 09/25/16 09:29; Start 09/20/16 at 21:00; Stop 09/25/16 at 18:06; Status DC Warfarin Sodium (Coumadin) 2.5 mg 1X WARF ONCE PO Last administered on 16:02; Start 09/21/16 at 16:00; Stop 09/21/16 at 16:01; Status DC Warfarin Sodium (Coumadin) 1 mg 1X WARF ONCE PO Last administered on 16:02; Start 09/21/16 at 16:00; Stop 09/21/16 at 16:01; Status DC Mirtazapine (Remeron) 7.5 mg QHS PO Last administered on 09/26/16 19:21; Start 09/21/16 at 21:00 Warfarin Sodium (Coumadin) 4 mg 1X WARF ONCE PO Last administered on 16:31; Start 09/22/16 at 16:00; Stop 09/22/16 at 16:01; Status DC Warfarin Sodium (Coumadin) 4 mg 1X WARF ONCE PO Last administered on 15:42; Start 09/23/16 at 16:00; Stop 09/23/16 at 16:01; Status DC Warfarin Sodium (Coumadin) 4 mg DAILY16 PO Last administered on 09/25/16 16:00 ; Start 09/24/16 at 16:00; Stop 09/26/16 at 08:25; Status DC Sertraline HCl (Zoloft) 50 mg DAILY PO Last administered on 09/26/16 08:30; Start 09/25/16 at 09:00 Valproic Acid (Depakene) 375 mg BID PO Last administered on 09/26/16 19:21; Start 09/25/16 at 21:00 Warfarin Sodium (Coumadin) 2 mg DAILY16 PO Last administered on 09/26/16 15:30 ; Start 09/26/16 at 16:00 Warfarin Sodium (Coumadin) 2.5 mg DAILY16 PO Last administered on 09/26/16 15: 30; Start 09/26/16 at 16:00 Quetiapine Fumarate (SEROquel) 12.5 mg BID92 PO ; Start 09/27/16 at 09:00 Active Scripts Active Reported Therems-M (Multivits, W-Fe,Other Min) 1 Each Tablet 1 Each PO DAILY Tamsulosin Hcl 0.4 Mg Cap.er.24h 0.4 Mg PO DAILY Lisinopril 5 Mg Tablet 5 Mg PO DAILY Famotidine 20 Mg Tablet 20 Mg PO DAILY Emsam (Selegiline) 1 Each Patch.td24 1 Each TD DAILY Aspirin 81 Mg Tab.chew 81 Mg PO DAILY Amiodarone Hcl 200 Mg Tablet 100 Mg PO DAILY Depakote (Divalproex Sodium) 250 Mg Tablet.dr 250 Mg PO BID Coumadin (Warfarin Sodium) 4 Mg Tablet 4.5 Mg PO DAILY Ativan (Lorazepam) 0.5 Mg Tablet 0.5 Mg PO PRN BID PRN Imodium A-D (Loperamide HCl) 2 Mg Capsule 2 Mg PO PRN PRN MDD 12 mg Ativan (Lorazepam) 1 Mg Tablet 1 Mg PO BID Buspirone Hcl 7.5 Mg Tablet 7.5 Mg PO BID LINDSAY BROWN MD September 26, 2016 20:58
[2016-09-27] MEDS: LORazepam 0.5 MG TABLET PO PRN (01:36)
[2016-09-27 06:18] VITALS: BP 124/82
--- NOTE | 2016-09-27 07:09 | PN ---
DATE: 09/25/2016 PSYCHIATRIC PROGRESS NOTE This is a late entry of 09/25/2016, covers elements not covered in my initial note. SUBJECTIVE: The patient remains confused. Slept 5-1/4 hours. No anger noted. Somewhat exit seeking, wandering, ready to go. UA was negative. REVIEW OF SYSTEMS: No CV, , pulmonary, eye, ENT system symptoms on review. Reliability poor. MENTAL STATUS EXAM: Oriented to himself. Insight, judgment, recent and remote memory, attention, concentration, fund of knowledge poor, consistent with his diagnosis mentioned in my initial note. PLAN: Continue current psychotropics. Valproic acid level low at 29, increase the Depakene from 250 b.i.d. to 375 b.i.d. Follow labs level. Adjust as clinically indicated. MAN Phoenix BROWN MD DR: JEREL/tavo JOB#: [id number] / [id number]
[2016-09-27] MEDS: NYSTATIN TOPICAL POWDER 30GM BOTTLE. TP SCH ×2 (09:00→21:00)
[2016-09-27] MEDS: TAMSULOSIN 0.4 MG CAP.ER.24H. PO SCH (09:12)
[2016-09-27] MEDS: busPIRone 15 MG TABLET. PO SCH (09:12)
[2016-09-27] MEDS: AMIODARONE HCL 200 MG TABLET PO SCH (09:14)
[2016-09-27] MEDS: LISINOPRIL 5 MG TABLET. PO SCH (09:15)
[2016-09-27] MEDS: FAMOTIDINE 20 MG TABLET PO SCH (09:15)
[2016-09-27] MEDS: LORazepam 0.5 MG TABLET PO SCH (09:15)
[2016-09-27] MEDS: SERTRALINE 50 MG TABLET. PO SCH (09:15)
[2016-09-27] MEDS: ASPIRIN 81 MG TAB.CHEW PO SCH (09:15)
[2016-09-27] MEDS: MULTIVITAMIN with MINERAL TABLET. PO SCH (09:15)
[2016-09-27] MEDS: VALPROATE ACID 250 MG/5 ML ORAL SOLUTION PO SCH ×2 (09:16→19:41)
[2016-09-27] MEDS: SELEGILINE 5 MG PO SCH (09:18)
[2016-09-27] MEDS: QUEtiapine 25 MG TABLET. PO SCH ×3 (09:18→19:40)
--- NOTE | 2016-09-27 11:35 | NUR ---
Pharmacy Warfarin Dosing Note S:Pharmacy consulted to assist with anticoagulation therapy started 09/13/16 with target INR: 2 -3 O:ABBEY MATHIS is a 76 year old M with Stroke LABS: Last INR: 2.1 Last HGB: 12.3 Last HCT: 37 Last PLT: 166 Last dose of 4.5MG given on 09/26/16 at 1530 Previous Regimen: 4.5MG HOME DOSE Vitamin K given: N Drug Interaction Changes: Same Interacting Drug Ongoing Drug Interactions: AMIODARONE A:INR Within desired Range. Target Range for this patient is: 2 -3 P: Warfarin dose: 4.5 DAILY at 1600 Bridge Therapy: None Next INR due 09/29/16 AM Pharmacy anticoagulation service will continue to follow. YAHAIRA SPEAR, 09/27/16 [id number]
--- NOTE | 2016-09-27 13:30 | NUR ---
THERAPEUTIC RECREATION GROUP NOTE TITLE :[place] [employer] ACTIVITY : [employer] GOAL : Increase socialization, fine motor skills, creativity DURATION : 90 Minutes RESPONSE : No participation
--- NOTE | 2016-09-27 14:21 | NUR ---
Behavior Intervention Response and Plan: BIRP Note: Behavior: Assumed Care of patient, patient located in Patient Room at shift change. Patient exhibited the following behavior Disorganized, Wandering, Exit Seeking. Brief assessment on rounds of vital signs, medication needs, lab studies, and pain. Treatment plan problems . Intervention: Patient assessed and the following interventions initiated safety checks 15 Minute Checks Medications , Head to toe Assessment , Nutrition. Response: After interactions and interventions patient responded in the following manner, Delusions , Drowsy ,Motor Retardation. Continue to assess behaviors and condition will continue to monitor throughout the shift as needed. Plan: Continue to monitor Master Treatment Plan for patient's progress toward short term goals of No harm To self/ others, Decreased Aggression, usp goals to return to previous living setting vs placement. Continue to assess patient for changes in above assessment. Monitor for medication needs, pain, and safety concerns. Hourly rounding performed to ensure safe environment.
[2016-09-27] MEDS: WARFARIN 2.5 MG TABLET. PO SCH (15:11)
[2016-09-27] MEDS: WARFARIN 2 MG TABLET. PO SCH (15:12)
[2016-09-27] MEDS: busPIRone 10 MG TABLET. PO SCH ×2 (15:12→19:40)
[2016-09-27 15:51] VITALS: BP 105/74
--- NOTE | 2016-09-27 16:01 | NUR ---
PAULINE contacted Pt's to discuss medication changes and target dc date for late next week. PAULINE also spoke w/Annette from [facility] regarding update to dc.
[2016-09-27] MEDS: traZODone 50 MG TABLET. PO PRN ×2 (19:42→22:30)
--- NOTE | 2016-09-27 20:30 | NUR ---
Behavior Intervention Response and Plan: BIRP Note: Behavior: Assumed Care of patient, patient located in Patient Room at shift change. Patient exhibited the following behavior Disorganized, Calm, Confused, Delusions, Drowsy. Brief assessment on rounds of vital signs, medication needs, lab studies, and pain. Treatment plan problems 1-2 . Intervention: Patient assessed and the following interventions initiated safety checks 15 Minute Checks, Medications , Head to toe Assessment , Nutrition. Response: After interactions and interventions patient responded in the following manner, Disorganized, Delusions, Calm, Interactive. Continue to assess behaviors and condition will continue to monitor throughout the shift as needed. 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 Continue to assess patient for changes in above assessment. Monitor for medication needs, pain, and safety concerns. Hourly rounding performed to ensure safe environment.
--- NOTE | 2016-09-27 20:58 | PDOC ---
Exam Blake Demential Exam: Blake Note: Please also refer to the separate dictated note~for this date of service dictated separately.~Patient seen individually. Discussed the patient with Nursing staff reviewed the chart.~Reviewed interim history and current functioning. Reviewed vital signs,~Labs/ Radiology~and current medications noted below. Continue current treatment with the changes noted in the dictated addendum note Assessment: Vital Signs: Vital Signs Date Time Temp Pulse Resp B/P (MAP) Pulse Ox O2 Delivery O2 Flow Rate FiO2 09/27/16 15:51 97.9 92 20 105/74 (84) 97 09/24/16 16:52 Room Air I&O Intake and Output 09/27/16 07:00 Intake Total 1200 ml Balance 1200 ml Intake Oral 1200 ml Labs: Laboratory Tests Test 09/27/16 09:32 Prothrombin Time 21.2 SEC (9.4-11.4) H Prothrombin Time INR 2.1 (0.9-1.1) H Current Medications: Meds: Current Medications Acetaminophen (Tylenol) 650 mg PRN Q6HRS PRN PO PAIN / TEMP Last administered on 09/15/16 20:02; Start 09/12/16 at 19:15 Multi-Ingredient Ointment (Analgesic [place]) 1 wilfredo PRN QID PRN TP MUSCLE PAIN; Start 09/12/16 at 19:15 Al Hydroxide/Mg Hydroxide (Mylanta Plus Xs) 15 ml PRN AFTMEALHC PRN PO DYSPEPSIA; Start 09/12/16 at 19:15 Magnesium Hydroxide (Milk Of Magnesia) 2,400 mg PRN QHS PRN PO CONSTIPATION; Start 09/12/16 at 19:15 Divalproex Sodium (Depakote) 250 mg BID PO Last administered on 09/20/16 08:38 ; Start 09/12/16 at 21:00; Stop 09/20/16 at 10:41; Status DC Lorazepam (Ativan) 0.5 mg PRN BID PRN PO ANXIETY / AGITATION Last administered on 09/27/16 01:36; Start 09/12/16 at 19:45 Lorazepam (Ativan) 1 mg BID PO Last administered on 09/17/16 08:49; Start 02/19 at 21:00; Stop 09/17/16 at 18:05; Status DC Selegiline HCl (Emsam) 1 patch DAILY TD ; Start 09/13/16 at 09:00; Stop at 18:35; Status DC Buspirone HCl (Buspar) 7.5 mg BID PO Last administered on 09/27/16 09:12; Start 09/12/16 at 21:00; Stop 09/27/16 at 10:31; Status DC Amiodarone HCl (Cordarone) 100 mg DAILY PO Last administered on 09/27/16 09:14 ; Start 09/13/16 at 09:00 Aspirin (Children'S Aspirin) 81 mg DAILY PO Last administered on 09/27/16 09: 15; Start 09/13/16 at 09:00 Famotidine (Pepcid) 20 mg DAILY PO Last administered on 09/27/16 09:15; Start 09/13/16 at 09:00 Lisinopril (Prinivil) 5 mg DAILY PO Last administered on 09/27/16 09:15; Start 09/13/16 at 09:00 Loperamide HCl (Imodium) 2 mg PRN Q4HRS PRN PO DIARRHEA; Start 09/12/16 at 19: 45 Tamsulosin HCl (Flomax) 0.4 mg DAILY PO Last administered on 09/27/16 09:12; Start 09/13/16 at 09:00 Warfarin Sodium (Coumadin) 2.5 mg DAILY16 PO Last administered on 09/14/16 16: 05; Start 09/13/16 at 16:00; Stop 09/15/16 at 15:03; Status DC Multivitamins/ Calcium (Thera-M Plus) 1 tab DAILY PO Last administered on 09:15; Start 09/13/16 at 09:00 Warfarin Sodium (Coumadin) 2 mg DAILY16 PO Last administered on 09/14/16 16:06 ; Start 09/13/16 at 16:00; Stop 09/15/16 at 15:02; Status DC Warfarin Sodium (Coumadin Per Pharmacy) 1 each PRN DAILY PRN MC SEE COMMENTS Last administered on 09/27/16 11:34; Start 09/13/16 at 03:15 Vitamin D (Vitamin D3) 50,000 unit WEEKLY PO Last administered on 09/21/16 09: 18; Start 09/14/16 at 09:00 Selegiline HCl (Eldepryl) 5 mg DAILY PO Last administered on 09/27/16 09:18; Start 09/14/16 at 09:00 Trazodone HCl (Desyrel) 50 mg PRN QHS PRN PO INSOMNIA, MAY REPEAT X1 Last administered on 09/27/16 19:42; Start 09/14/16 at 19:15 Nystatin (Nystop) 1 wilfredo BID TP Last administered on 09/27/16 09:00; Start at 09:00 Nystatin (Nystop) 30 wilfredo STK-MED ONCE TP Last administered on 09/14/16 21:27; Start 09/14/16 at 21:27; Stop 09/14/16 at 21:28; Status DC Warfarin Sodium (Coumadin) 3 mg 1X WARF ONCE PO Last administered on 15:48; Start 09/15/16 at 16:00; Stop 09/15/16 at 16:01; Status DC Warfarin Sodium (Coumadin) 2.5 mg 1X ONCE PO Last administered on 09/15/16 15 :47; Start 09/15/16 at 15:15; Stop 09/15/16 at 15:17; Status DC Warfarin Sodium (Coumadin) 5 mg 1X WARF ONCE PO Last administered on 18:16; Start 09/16/16 at 16:00; Stop 09/16/16 at 16:01; Status DC Warfarin Sodium (Coumadin) 2 mg 1X WARF ONCE PO Last administered on 16:02; Start 09/17/16 at 16:00; Stop 09/17/16 at 16:01; Status DC Warfarin Sodium (Coumadin) 2.5 mg 1X WARF ONCE PO Last administered on 16:03; Start 09/17/16 at 16:00; Stop 09/17/16 at 16:01; Status DC Lorazepam (Ativan) 0.5 mg TID PO Last administered on 09/20/16 20:45; Start at 21:00; Stop 09/20/16 at 21:00; Status DC Lorazepam (Ativan) 0.5 mg BID PO Last administered on 09/24/16 19:38; Start at 09:00; Stop 09/24/16 at 21:01; Status DC Lorazepam (Ativan) 0.5 mg DAILY PO Last administered on 09/27/16 09:15; Start 09/25/16 at 09:00; Stop 09/27/16 at 10:39; Status DC Warfarin Sodium (Coumadin) 2.5 mg 1X WARF ONCE PO Last administered on 14:58; Start 09/18/16 at 16:00; Stop 09/18/16 at 16:01; Status DC Warfarin Sodium (Coumadin) 2 mg 1X WARF ONCE PO Last administered on 14:59; Start 09/18/16 at 16:00; Stop 09/18/16 at 16:01; Status DC Sertraline HCl (Zoloft) 25 mg DAILY PO Last administered on 09/24/16 07:43; Start 09/19/16 at 09:00; Stop 09/24/16 at 18:00; Status DC Warfarin Sodium (Coumadin - No Dose Today) 1 each 1X WARF ONCE MC Last administered on 09/19/16 14:14; Start 09/19/16 at 16:00; Stop 09/19/16 at 16:02 ; Status DC Quetiapine Fumarate (SEROquel) 25 mg QHS PO Last administered on 09/27/16 19: 40; Start 09/20/16 at 21:00 Warfarin Sodium (Coumadin) 2.5 mg 1X WARF ONCE PO Last administered on 16:31; Start 09/20/16 at 16:00; Stop 09/20/16 at 16:01; Status DC Valproic Acid (Depakene) 250 mg BID PO Last administered on 09/25/16 09:29; Start 09/20/16 at 21:00; Stop 09/25/16 at 18:06; Status DC Warfarin Sodium (Coumadin) 2.5 mg 1X WARF ONCE PO Last administered on 16:02; Start 09/21/16 at 16:00; Stop 09/21/16 at 16:01; Status DC Warfarin Sodium (Coumadin) 1 mg 1X WARF ONCE PO Last administered on 16:02; Start 09/21/16 at 16:00; Stop 09/21/16 at 16:01; Status DC Mirtazapine (Remeron) 7.5 mg QHS PO Last administered on 09/26/16 19:21; Start 09/21/16 at 21:00; Stop 09/27/16 at 10:31; Status DC Warfarin Sodium (Coumadin) 4 mg 1X WARF ONCE PO Last administered on 16:31; Start 09/22/16 at 16:00; Stop 09/22/16 at 16:01; Status DC Warfarin Sodium (Coumadin) 4 mg 1X WARF ONCE PO Last administered on 15:42; Start 09/23/16 at 16:00; Stop 09/23/16 at 16:01; Status DC Warfarin Sodium (Coumadin) 4 mg DAILY16 PO Last administered on 09/25/16 16:00 ; Start 09/24/16 at 16:00; Stop 09/26/16 at 08:25; Status DC Sertraline HCl (Zoloft) 50 mg DAILY PO Last administered on 09/27/16 09:15; Start 09/25/16 at 09:00 Valproic Acid (Depakene) 375 mg BID PO Last administered on 09/27/16 19:41; Start 09/25/16 at 21:00 Warfarin Sodium (Coumadin) 2 mg DAILY16 PO Last administered on 09/27/16 15:12 ; Start 09/26/16 at 16:00 Warfarin Sodium (Coumadin) 2.5 mg DAILY16 PO Last administered on 09/27/16 15: 11; Start 09/26/16 at 16:00 Quetiapine Fumarate (SEROquel) 12.5 mg BID92 PO Last administered on 09/27/16 15:11; Start 09/27/16 at 09:00 Buspirone HCl (Buspar) 10 mg TID PO Last administered on 09/27/16 19:40; Start 09/27/16 at 14:00 Mirtazapine (Remeron) 15 mg QHS PO ; Start 09/27/16 at 21:00 Lorazepam (Ativan) 0.5 mg DAILY PO ; Start 09/28/16 at 09:00 Active Scripts Active Reported Therems-M (Multivits, W-Fe,Other Min) 1 Each Tablet 1 Each PO DAILY Tamsulosin Hcl 0.4 Mg Cap.er.24h 0.4 Mg PO DAILY Lisinopril 5 Mg Tablet 5 Mg PO DAILY Famotidine 20 Mg Tablet 20 Mg PO DAILY Emsam (Selegiline) 1 Each Patch.td24 1 Each TD DAILY Aspirin 81 Mg Tab.chew 81 Mg PO DAILY Amiodarone Hcl 200 Mg Tablet 100 Mg PO DAILY Depakote (Divalproex Sodium) 250 Mg Tablet.dr 250 Mg PO BID Coumadin (Warfarin Sodium) 4 Mg Tablet 4.5 Mg PO DAILY Ativan (Lorazepam) 0.5 Mg Tablet 0.5 Mg PO PRN BID PRN Imodium A-D (Loperamide HCl) 2 Mg Capsule 2 Mg PO PRN PRN MDD 12 mg Ativan (Lorazepam) 1 Mg Tablet 1 Mg PO BID Buspirone Hcl 7.5 Mg Tablet 7.5 Mg PO BID LINDSAY BROWN MD September 27, 2016 20:58
[2016-09-27] MEDS: MIRTAZAPINE 15 MG TABLET PO SCH (21:16)
[2016-09-28 06:26] VITALS: BP 113/69
[2016-09-28 06:41] LABS: BASO # 0.1 x10^3/uL (0.0-0.2); BASO % 1 % (0-3); EOS # 0.3 x10^3/uL (0.0-0.7); EOS % 5 % (0-3); HEMATOCRIT 32.7 % (39.0-53.0); HEMOGLOBIN 10.8 g/dL (13.0-17.5); LYMPH # 1.1 x10^3/uL (1.0-4.8); LYMPH % 19 % (24-48); MEAN CORPUSCULAR HEMOGLOBIN 29 pg (25-35); MEAN CORPUSCULAR HGB CONC 33 g/dL (31-37); MEAN CORPUSCULAR VOLUME 87 fL (79-100); MONO # 0.5 x10^3/uL (0.0-1.1); MONO % 9 % (0-9); NEUT # 3.7 x10^3uL (1.8-7.7); NEUT % 66 % (31-73); PLATELET COUNT 141 x10^3/uL (140-400); RED BLOOD COUNT 3.74 x10^6/uL (4.30-5.70); WHITE BLOOD COUNT 5.6 x10^3/uL (4.0-11.0)
[2016-09-28 06:58] LABS: ALBUMIN/GLOBULIN RATIO 0.9 (1.0-1.7); ALK PHOS 45 U/L (46-116); ALT (SGPT) 16 U/L (16-63); ANION GAP 7 (6-14); AST (SGOT) 19 U/L (15-37); BLOOD UREA NITROGEN 30 mg/dL (8-26); BUN/CREATININE RATIO 25 (6-20); CALCIUM 8.4 mg/dL (8.5-10.1); CARBON DIOXIDE 27 mmol/L (21-32); CHLORIDE 108 mmol/L (98-107); CREATININE 1.2 mg/dL (0.7-1.3); GFR 59.2; GLUCOSE 86 mg/dL (70-99); POTASSIUM 4.3 mmol/L (3.5-5.1); SODIUM 142 mmol/L (136-145); TOTAL BILIRUBIN 0.8 mg/dL (0.2-1.0); TOTAL PROTEIN 6.4 g/dL (6.4-8.2); VAL ACID 42 mcg/mL (50-100)
[2016-09-28] MEDS: VALPROATE ACID 250 MG/5 ML ORAL SOLUTION PO SCH ×2 (07:47→19:41)
[2016-09-28] MEDS: busPIRone 10 MG TABLET. PO SCH ×3 (07:47→19:41)
[2016-09-28] MEDS: QUEtiapine 25 MG TABLET. PO SCH ×3 (07:47→19:41)
[2016-09-28] MEDS: SERTRALINE 50 MG TABLET. PO SCH (07:48)
[2016-09-28] MEDS: LORazepam 0.5 MG TABLET PO SCH (07:49)
[2016-09-28] MEDS: NYSTATIN TOPICAL POWDER 30GM BOTTLE. TP SCH ×2 (09:00→19:48)
[2016-09-28] MEDS: MULTIVITAMIN with MINERAL TABLET. PO SCH (09:37)
[2016-09-28] MEDS: LISINOPRIL 5 MG TABLET. PO SCH (09:37)
[2016-09-28] MEDS: TAMSULOSIN 0.4 MG CAP.ER.24H. PO SCH (09:38)
[2016-09-28] MEDS: FAMOTIDINE 20 MG TABLET PO SCH (09:38)
[2016-09-28] MEDS: AMIODARONE HCL 200 MG TABLET PO SCH (09:38)
[2016-09-28] MEDS: ASPIRIN 81 MG TAB.CHEW PO SCH (09:38)
[2016-09-28] MEDS: CHOLECALCIFEROL (VITAMIN D3) 50,000 UNIT CAPSULE PO SCH (09:40)
[2016-09-28] MEDS: SELEGILINE 5 MG PO SCH (09:40)
--- NOTE | 2016-09-28 10:44 | NUR ---
Behavior Intervention Response and Plan: BIRP Note: Behavior: Assumed Care of patient, patient located in Dining Room at shift change. Patient exhibited the following behavior Disorganized, Non Compliant with Meds, Drowsy. Brief assessment on rounds of vital signs, medication needs, lab studies, and pain. Treatment plan problems . Intervention: Patient assessed and the following interventions initiated safety checks 15 Minute Checks Cognitive Assessment , Head to toe Assessment , Medications. Response: After interactions and interventions patient responded in the following manner, Disorganized , Calm ,Non Compliant with Meds. Continue to assess behaviors and condition will continue to monitor throughout the shift as needed. Plan: Continue to monitor Master Treatment Plan for patient's progress toward short term goals of Medication Compliance, Decreased Agitation, chcf goals to return to previous living setting vs placement. Continue to assess patient for changes in above assessment. Monitor for medication needs, pain, and safety concerns. Hourly rounding performed to ensure safe environment.
--- NOTE | 2016-09-28 14:00 | NUR ---
THERAPEUTIC RECREATION GROUP NOTE TITLE :[employer] Decorating: [facility] ACTIVITY : Activities and Games GOAL : Facilitate sense of belonging and well-being, elevate mood, increase socialization and social skills. Incorporate traditions. DURATION : 45 minutes RESPONSE : Full participation. Pt. was calm and engaged the entire time. He needed minimal prompting to stay on task.
[2016-09-28 16:02] VITALS: BP 132/90
[2016-09-28] MEDS: WARFARIN 2.5 MG TABLET. PO SCH (17:37)
[2016-09-28] MEDS: WARFARIN 2 MG TABLET. PO SCH (17:37)
[2016-09-28] MEDS: MIRTAZAPINE 15 MG TABLET PO SCH (19:41)
[2016-09-28] MEDS: traZODone 50 MG TABLET. PO PRN ×2 (19:43→22:47)
[2016-09-28] MEDS: LORazepam 0.5 MG TABLET PO PRN (19:43)
--- NOTE | 2016-09-28 20:00 | NUR ---
Behavior Intervention Response and Plan: BIRP Note: Behavior: Assumed Care of patient, patient located in Patient Room at shift change. Patient exhibited the following behavior Disorganized, Calm, Confused, Delusions, Drowsy. Brief assessment on rounds of vital signs, medication needs, lab studies, and pain. Treatment plan problems 1-2 . Intervention: Patient assessed and the following interventions initiated safety checks 15 Minute Checks, Medications , Head to toe Assessment , Nutrition. Response: After interactions and interventions patient responded in the following manner, Disorganized, Delusions, Cooperative, Calm. Continue to assess behaviors and condition will continue to monitor throughout the shift as needed. 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 Continue to assess patient for changes in above assessment. Monitor for medication needs, pain, and safety concerns. Hourly rounding performed to ensure safe environment.
--- NOTE | 2016-09-28 21:26 | PDOC ---
Exam Blake Demential Exam: Blake Note: Please also refer to the separate dictated note~for this date of service dictated separately.~Patient seen individually. Discussed the patient with Nursing staff reviewed the chart.~Reviewed interim history and current functioning. Reviewed vital signs,~Labs/ Radiology~and current medications noted below. Continue current treatment with the changes noted in the dictated addendum note Assessment: Vital Signs: Vital Signs Date Time Temp Pulse Resp B/P (MAP) Pulse Ox O2 Delivery O2 Flow Rate FiO2 09/28/16 16:02 98.1 98 18 132/90 (104) 96 09/24/16 16:52 Room Air I&O Intake and Output 09/28/16 07:00 Intake Total 840 ml Balance 840 ml Intake Oral 840 ml Labs: Laboratory Tests Test 09/28/16 06:22 White Blood Count 5.6 x10^3/uL (4.0-11.0) Red Blood Count 3.74 x10^6/uL (4.30-5.70) L Hemoglobin 10.8 g/dL (13.0-17.5) L Hematocrit 32.7 % (39.0-53.0) L Mean Corpuscular Volume 87 fL (79-100) Mean Corpuscular Hemoglobin 29 pg (25-35) Mean Corpuscular Hemoglobin Concent 33 g/dL (31-37) Red Cell Distribution Width 15.0 % (11.5-14.5) H Platelet Count 141 x10^3/uL (140-400) Neutrophils (%) (Auto) 66 % (31-73) Lymphocytes (%) (Auto) 19 % (24-48) L Monocytes (%) (Auto) 9 % (0-9) Eosinophils (%) (Auto) 5 % (0-3) H Basophils (%) (Auto) 1 % (0-3) Neutrophils # (Auto) 3.7 x10^3uL (1.8-7.7) Lymphocytes # (Auto) 1.1 x10^3/uL (1.0-4.8) Monocytes # (Auto) 0.5 x10^3/uL (0.0-1.1) Eosinophils # (Auto) 0.3 x10^3/uL (0.0-0.7) Basophils # (Auto) 0.1 x10^3/uL (0.0-0.2) Sodium Level 142 mmol/L (136-145) Potassium Level 4.3 mmol/L (3.5-5.1) Chloride Level 108 mmol/L (98-107) H Carbon Dioxide Level 27 mmol/L (21-32) Anion Gap 7 (6-14) Blood Urea Nitrogen 30 mg/dL (8-26) H Creatinine 1.2 mg/dL (0.7-1.3) Estimated GFR (Cockcroft-Gault) 59.2 BUN/Creatinine Ratio 25 (6-20) H Glucose Level 86 mg/dL (70-99) Calcium Level 8.4 mg/dL (8.5-10.1) L Total Bilirubin 0.8 mg/dL (0.2-1.0) Aspartate Amino Transferase (AST) 19 U/L (15-37) Alanine Aminotransferase (ALT) 16 U/L (16-63) Alkaline Phosphatase 45 U/L (46-116) L Total Protein 6.4 g/dL (6.4-8.2) Albumin 3.0 g/dL (3.4-5.0) L Albumin/Globulin Ratio 0.9 (1.0-1.7) L Valproic Acid Level 42 mcg/mL (50-100) L Valproic Acid Last Dose Date 09/27/16 Valproic Acid Last Dose Time 2100 Current Medications: Meds: Current Medications Acetaminophen (Tylenol) 650 mg PRN Q6HRS PRN PO PAIN / TEMP Last administered on 09/15/16t 20:02; Start 09/12/16 at 19:15 Multi-Ingredient Ointment (Analgesic [place]) 1 wilfredo PRN QID PRN TP MUSCLE PAIN; Start 09/12/16 at 19:15 Al Hydroxide/Mg Hydroxide (Mylanta Plus Xs) 15 ml PRN AFTMEALHC PRN PO DYSPEPSIA; Start 09/12/16 at 19:15 Magnesium Hydroxide (Milk Of Magnesia) 2,400 mg PRN QHS PRN PO CONSTIPATION; Start 09/12/16 at 19:15 Divalproex Sodium (Depakote) 250 mg BID PO Last administered on 09/20/16t 08:38 ; Start 09/12/16 at 21:00; Stop 09/20/16 at 10:41; Status DC Lorazepam (Ativan) 0.5 mg PRN BID PRN PO ANXIETY / AGITATION Last administered on 09/28/16 19:43; Start 09/12/16 at 19:45 Lorazepam (Ativan) 1 mg BID PO Last administered on 09/17/16 08:49; Start 02/19 at 21:00; Stop 09/17/16 at 18:05; Status DC Selegiline HCl (Emsam) 1 patch DAILY TD ; Start 09/13/16 at 09:00; Stop at 18:35; Status DC Buspirone HCl (Buspar) 7.5 mg BID PO Last administered on 09/27/16 09:12; Start 09/12/16 at 21:00; Stop 09/27/16 at 10:31; Status DC Amiodarone HCl (Cordarone) 100 mg DAILY PO Last administered on 09/28/16 09:38 ; Start 09/13/16 at 09:00 Aspirin (Children'S Aspirin) 81 mg DAILY PO Last administered on 09/28/16 09: 38; Start 09/13/16 at 09:00 Famotidine (Pepcid) 20 mg DAILY PO Last administered on 09/28/16 09:38; Start 09/13/16 at 09:00 Lisinopril (Prinivil) 5 mg DAILY PO Last administered on 09/28/16 09:37; Start 09/13/16 at 09:00 Loperamide HCl (Imodium) 2 mg PRN Q4HRS PRN PO DIARRHEA; Start 09/12/16 at 19: 45 Tamsulosin HCl (Flomax) 0.4 mg DAILY PO Last administered on 09/28/16 09:38; Start 09/13/16 at 09:00 Warfarin Sodium (Coumadin) 2.5 mg DAILY16 PO Last administered on 09/14/16 16: 05; Start 09/13/16 at 16:00; Stop 09/15/16 at 15:03; Status DC Multivitamins/ Calcium (Thera-M Plus) 1 tab DAILY PO Last administered on 09:37; Start 09/13/16 at 09:00 Warfarin Sodium (Coumadin) 2 mg DAILY16 PO Last administered on 09/14/16 16:06 ; Start 09/13/16 at 16:00; Stop 09/15/16 at 15:02; Status DC Warfarin Sodium (Coumadin Per Pharmacy) 1 each PRN DAILY PRN MC SEE COMMENTS Last administered on 09/27/16 11:34; Start 09/13/16 at 03:15 Vitamin D (Vitamin D3) 50,000 unit WEEKLY PO Last administered on 09/28/16 09: 40; Start 09/14/16 at 09:00 Selegiline HCl (Eldepryl) 5 mg DAILY PO Last administered on 09/28/16 09:40; Start 09/14/16 at 09:00 Trazodone HCl (Desyrel) 50 mg PRN QHS PRN PO INSOMNIA, MAY REPEAT X1 Last administered on 09/28/16 19:43; Start 09/14/16 at 19:15 Nystatin (Nystop) 1 wilfredo BID TP Last administered on 09/28/16 19:48; Start at 09:00 Nystatin (Nystop) 30 wilfredo STK-MED ONCE TP Last administered on 09/14/16 21:27; Start 09/14/16 at 21:27; Stop 09/14/16 at 21:28; Status DC Warfarin Sodium (Coumadin) 3 mg 1X WARF ONCE PO Last administered on 15:48; Start 09/15/16 at 16:00; Stop 09/15/16 at 16:01; Status DC Warfarin Sodium (Coumadin) 2.5 mg 1X ONCE PO Last administered on 09/15/16 15 :47; Start 09/15/16 at 15:15; Stop 09/15/16 at 15:17; Status DC Warfarin Sodium (Coumadin) 5 mg 1X WARF ONCE PO Last administered on 18:16; Start 09/16/16 at 16:00; Stop 09/16/16 at 16:01; Status DC Warfarin Sodium (Coumadin) 2 mg 1X WARF ONCE PO Last administered on 16:02; Start 09/17/16 at 16:00; Stop 09/17/16 at 16:01; Status DC Warfarin Sodium (Coumadin) 2.5 mg 1X WARF ONCE PO Last administered on 16:03; Start 09/17/16 at 16:00; Stop 09/17/16 at 16:01; Status DC Lorazepam (Ativan) 0.5 mg TID PO Last administered on 09/20/16 20:45; Start at 21:00; Stop 09/20/16 at 21:00; Status DC Lorazepam (Ativan) 0.5 mg BID PO Last administered on 09/24/16 19:38; Start at 09:00; Stop 09/24/16 at 21:01; Status DC Lorazepam (Ativan) 0.5 mg DAILY PO Last administered on 09/27/16 09:15; Start 09/25/16 at 09:00; Stop 09/27/16 at 10:39; Status DC Warfarin Sodium (Coumadin) 2.5 mg 1X WARF ONCE PO Last administered on 14:58; Start 09/18/16 at 16:00; Stop 09/18/16 at 16:01; Status DC Warfarin Sodium (Coumadin) 2 mg 1X WARF ONCE PO Last administered on 14:59; Start 09/18/16 at 16:00; Stop 09/18/16 at 16:01; Status DC Sertraline HCl (Zoloft) 25 mg DAILY PO Last administered on 09/24/16 07:43; Start 09/19/16 at 09:00; Stop 09/24/16 at 18:00; Status DC Warfarin Sodium (Coumadin - No Dose Today) 1 each 1X WARF ONCE MC Last administered on 09/19/16 14:14; Start 09/19/16 at 16:00; Stop 09/19/16 at 16:02 ; Status DC Quetiapine Fumarate (SEROquel) 25 mg QHS PO Last administered on 09/28/16 19: 41; Start 09/20/16 at 21:00 Warfarin Sodium (Coumadin) 2.5 mg 1X WARF ONCE PO Last administered on 16:31; Start 09/20/16 at 16:00; Stop 09/20/16 at 16:01; Status DC Valproic Acid (Depakene) 250 mg BID PO Last administered on 09/25/16 09:29; Start 09/20/16 at 21:00; Stop 09/25/16 at 18:06; Status DC Warfarin Sodium (Coumadin) 2.5 mg 1X WARF ONCE PO Last administered on 16:02; Start 09/21/16 at 16:00; Stop 09/21/16 at 16:01; Status DC Warfarin Sodium (Coumadin) 1 mg 1X WARF ONCE PO Last administered on 16:02; Start 09/21/16 at 16:00; Stop 09/21/16 at 16:01; Status DC Mirtazapine (Remeron) 7.5 mg QHS PO Last administered on 09/26/16 19:21; Start 09/21/16 at 21:00; Stop 09/27/16 at 10:31; Status DC Warfarin Sodium (Coumadin) 4 mg 1X WARF ONCE PO Last administered on 16:31; Start 09/22/16 at 16:00; Stop 09/22/16 at 16:01; Status DC Warfarin Sodium (Coumadin) 4 mg 1X WARF ONCE PO Last administered on 15:42; Start 09/23/16 at 16:00; Stop 09/23/16 at 16:01; Status DC Warfarin Sodium (Coumadin) 4 mg DAILY16 PO Last administered on 09/25/16 16:00 ; Start 09/24/16 at 16:00; Stop 09/26/16 at 08:25; Status DC Sertraline HCl (Zoloft) 50 mg DAILY PO Last administered on 09/28/16 07:48; Start 09/25/16 at 09:00 Valproic Acid (Depakene) 375 mg BID PO Last administered on 09/28/16 19:41; Start 09/25/16 at 21:00 Warfarin Sodium (Coumadin) 2 mg DAILY16 PO Last administered on 09/28/16 17:37 ; Start 09/26/16 at 16:00 Warfarin Sodium (Coumadin) 2.5 mg DAILY16 PO Last administered on 09/28/16 17: 37; Start 09/26/16 at 16:00 Quetiapine Fumarate (SEROquel) 12.5 mg BID92 PO Last administered on 09/28/16 14:28; Start 09/27/16 at 09:00 Buspirone HCl (Buspar) 10 mg TID PO Last administered on 09/28/16 19:41; Start 09/27/16 at 14:00 Mirtazapine (Remeron) 15 mg QHS PO Last administered on 09/28/16 19:41; Start 09/27/16 at 21:00 Lorazepam (Ativan) 0.5 mg DAILY PO Last administered on 09/28/16 07:49; Start 09/28/16 at 09:00 Active Scripts Active Reported Therems-M (Multivits, W-Fe,Other Min) 1 Each Tablet 1 Each PO DAILY Tamsulosin Hcl 0.4 Mg Cap.er.24h 0.4 Mg PO DAILY Lisinopril 5 Mg Tablet 5 Mg PO DAILY Famotidine 20 Mg Tablet 20 Mg PO DAILY Emsam (Selegiline) 1 Each Patch.td24 1 Each TD DAILY Aspirin 81 Mg Tab.chew 81 Mg PO DAILY Amiodarone Hcl 200 Mg Tablet 100 Mg PO DAILY Depakote (Divalproex Sodium) 250 Mg Tablet.dr 250 Mg PO BID Coumadin (Warfarin Sodium) 4 Mg Tablet 4.5 Mg PO DAILY Ativan (Lorazepam) 0.5 Mg Tablet 0.5 Mg PO PRN BID PRN Imodium A-D (Loperamide HCl) 2 Mg Capsule 2 Mg PO PRN PRN MDD 12 mg Ativan (Lorazepam) 1 Mg Tablet 1 Mg PO BID Buspirone Hcl 7.5 Mg Tablet 7.5 Mg PO BID LINDSAY BROWN MD September 28, 2016 21:26
[2016-09-29 06:08] VITALS: BP 111/60
[2016-09-29] MEDS: LORazepam 0.5 MG TABLET PO SCH (08:11)
[2016-09-29] MEDS: busPIRone 10 MG TABLET. PO SCH ×3 (08:11→20:09)
[2016-09-29] MEDS: ASPIRIN 81 MG TAB.CHEW PO SCH (08:11)
[2016-09-29] MEDS: VALPROATE ACID 250 MG/5 ML ORAL SOLUTION PO SCH ×2 (08:12→20:09)
[2016-09-29] MEDS: SELEGILINE 5 MG PO SCH (08:12)
[2016-09-29] MEDS: AMIODARONE HCL 200 MG TABLET PO SCH (08:12)
[2016-09-29] MEDS: LISINOPRIL 5 MG TABLET. PO SCH (08:13)
[2016-09-29] MEDS: QUEtiapine 25 MG TABLET. PO SCH ×3 (08:13→20:08)
[2016-09-29] MEDS: FAMOTIDINE 20 MG TABLET PO SCH (08:13)
[2016-09-29] MEDS: TAMSULOSIN 0.4 MG CAP.ER.24H. PO SCH (08:13)
[2016-09-29] MEDS: MULTIVITAMIN with MINERAL TABLET. PO SCH (08:14)
[2016-09-29] MEDS: SERTRALINE 50 MG TABLET. PO SCH (08:14)
[2016-09-29] MEDS: NYSTATIN TOPICAL POWDER 30GM BOTTLE. TP SCH ×2 (08:14→20:54)
--- NOTE | 2016-09-29 10:49 | NUR ---
Behavior Intervention Response and Plan: BIRP Note: Behavior: Assumed Care of patient, patient located in Patient Room at shift change. Patient exhibited the following behavior Disorganized, Calm, Confused, Drowsy. Brief assessment on rounds of vital signs, medication needs, lab studies, and pain. Treatment plan problems 1-2 . Intervention: Patient assessed and the following interventions initiated safety checks 15 Minute Checks, Medications , Head to toe Assessment , Nutrition. Response: After interactions and interventions patient responded in the following manner, Disorganized, Cooperative, Calm. Continue to assess behaviors and condition will continue to monitor throughout the shift as needed. Plan: Continue to monitor Master Treatment Plan for patient's progress toward short term goals of No harm To self/ others, Decreased Aggression, Medication Compliance, Decreased Anxiety, prison goals to return to previous living setting vs placement. Continue to assess patient for changes in above assessment. Monitor for medication needs, pain, and safety concerns. Hourly rounding performed to ensure safe environment.
--- NOTE | 2016-09-29 12:17 | PN ---
DATE: 09/26/2016 PSYCHIATRIC PROGRESS NOTE This is a late entry of 09/26/2016 covers elements not covered in my initial note. 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 REVIEW OF SYSTEMS: No CV, , eye, ENT or pulmonary system symptoms on review. Reliability poor. MENTAL STATUS EXAM: Oriented to himself. Insight, judgment, recent and remote memory, attention, concentration, fund of knowledge poor, consistent with his diagnosis mentioned in my initial note. LABORATORY DATA: Reviewed. IMPRESSION: Unchanged from initial note. PLAN: Seroquel is 25 mg at bedtime we will continue this. Add Seroquel 12.5 mg twice a day during the day. Maintain the rest of the psychotropics mentioned in my initial note. MAN Phoenix BROWN MD DR: [email or web address]/tavo JOB#: [id number] / [id number]
--- NOTE | 2016-09-29 12:18 | PN ---
DATE: 09/27/2016 PSYCHIATRIC PROGRESS NOTE This is a late entry 09/27/2016, covers elements not covered in my initial note. SUBJECTIVE: The patient was staffed at treatment team meeting with the entire team and seen individually. He did not sleep at all the previous night, delusional, anxious, restless, attempting to exit the unit, wanting to get back to [place] farm. REVIEW OF SYSTEMS: No CV, , pulmonary, eye, ENT system symptoms on review. MENTAL STATUS EXAM: Oriented to himself. Insight, judgment, recent and remote memory, attention, concentration, fund of knowledge poor, consistent with his diagnoses mentioned in my initial note. PLAN: Increase BuSpar from 7.5 b.i.d. to 10 mg 3 times a day, Remeron from 7.5 at bedtime to 15 mg at bedtime. Continue trazodone at bedtime p.r.n., Depakene. Ativan is being tapered. Rest unchanged from what is noted in my initial note. Zoloft 25 mg a day. MAN Phoenix BROWN MD DR: JEREL/tavo JOB#: [id number] / [id number]
--- NOTE | 2016-09-29 14:49 | NUR ---
Pt is upset at this time. pt does not understand why he is in the hospital and is upset with his for "putting me here." Pt stated if he had "something sharp he would sit on it just to get out of here." Nurse offered pt ativan crushed in pudding pt stated "Sadia had enough of your medicine." Pt refused to take medication. 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 Pt then asked for gatorade. Ativan crushed in gatorade given.
[2016-09-29] MEDS: LORazepam 0.5 MG TABLET PO PRN (15:04)
--- NOTE | 2016-09-29 15:05 | NUR ---
Pharmacy Warfarin Dosing Note S:Pharmacy consulted to assist with anticoagulation therapy started 09/13/16 with target INR: 2 -3 O:ABBEY MATHIS is a 76 year old M with Stroke LABS: Last INR: 2.2 Last HGB: 10.8 Last HCT: 32.7 Last PLT: 141 Last dose of 4.5MG given on 09/28/16 at 1600 Previous Regimen: 4.5MG HOME DOSE Vitamin K given: N Drug Interaction Changes: Same Interacting Drug Ongoing Drug Interactions: AMIODARONE A:INR Within desired Range. Target Range for this patient is: 2 -3 P: Warfarin dose: 4.5MG Today at 1600 Bridge Therapy: None Next INR due 10/01/16 @ 0600 Pharmacy anticoagulation service will continue to follow. [facility] [place], 09/29/16 [id number]
[2016-09-29 15:59] VITALS: BP 119/79
[2016-09-29] MEDS: WARFARIN 2.5 MG TABLET. PO SCH (17:28)
[2016-09-29] MEDS: WARFARIN 2 MG TABLET. PO SCH (17:28)
[2016-09-29] MEDS: MIRTAZAPINE 15 MG TABLET PO SCH (20:09)
--- NOTE | 2016-09-29 22:25 | NUR ---
Behavior Intervention Response and Plan: BIRP Note: Behavior: Assumed Care of patient, patient located in Bathroom at shift change. Patient exhibited the following behavior Interactive, Disorganized, Able to Focus on Task. Brief assessment on rounds of vital signs, medication needs, lab studies, and pain. Treatment plan problems:1-2 Intervention: Patient assessed and the following interventions initiated safety checks 15 Minute Checks Cognitive Assessment , Head to toe Assessment , Medications. Response: After interactions and interventions patient responded in the following manner, Calm , Able to Focus on Task ,Cooperative. Continue to assess behaviors and condition will continue to monitor throughout the shift as needed. Plan: Continue to monitor Master Treatment Plan for patient's progress toward short term goals of Decreased Agitation, Improved Mood, longterm goals to return to previous living setting vs placement. Continue to assess patient for changes in above assessment. Monitor for medication needs, pain, and safety concerns. Hourly rounding performed to ensure safe environment.
--- NOTE | 2016-09-29 22:53 | PDOC ---
Exam Blake Demential Exam: Blake Note: Please also refer to the separate dictated note~for this date of service dictated separately.~Patient seen individually. Discussed the patient with Nursing staff reviewed the chart.~Reviewed interim history and current functioning. Reviewed vital signs,~Labs/ Radiology~and current medications noted below. Continue current treatment with the changes noted in the dictated addendum note Assessment: Vital Signs: Vital Signs Date Time Temp Pulse Resp B/P (MAP) Pulse Ox O2 Delivery O2 Flow Rate FiO2 09/29/16 15:59 97.9 99 17 119/79 (92) 100 09/24/16 16:52 Room Air I&O Intake and Output 09/29/16 07:00 Intake Total 960 ml Balance 960 ml Intake Oral 960 ml Labs: Laboratory Tests Test 09/29/16 06:17 Prothrombin Time 22.8 SEC (9.4-11.4) H Prothrombin Time INR 2.2 (0.9-1.1) H Current Medications: Meds: Current Medications Acetaminophen (Tylenol) 650 mg PRN Q6HRS PRN PO PAIN / TEMP Last administered on 09/15/16 20:02; Start 09/12/16 at 19:15 Multi-Ingredient Ointment (Analgesic [place]) 1 wilfredo PRN QID PRN TP MUSCLE PAIN; Start 09/12/16 at 19:15 Al Hydroxide/Mg Hydroxide (Mylanta Plus Xs) 15 ml PRN AFTMEALHC PRN PO DYSPEPSIA; Start 09/12/16 at 19:15 Magnesium Hydroxide (Milk Of Magnesia) 2,400 mg PRN QHS PRN PO CONSTIPATION; Start 09/12/16 at 19:15 Divalproex Sodium (Depakote) 250 mg BID PO Last administered on 09/20/16 08:38 ; Start 09/12/16 at 21:00; Stop 09/20/16 at 10:41; Status DC Lorazepam (Ativan) 0.5 mg PRN BID PRN PO ANXIETY / AGITATION Last administered on 09/29/16 15:04; Start 09/12/16 at 19:45 Lorazepam (Ativan) 1 mg BID PO Last administered on 09/17/16 08:49; Start 02/19 at 21:00; Stop 09/17/16 at 18:05; Status DC Selegiline HCl (Emsam) 1 patch DAILY TD ; Start 09/13/16 at 09:00; Stop at 18:35; Status DC Buspirone HCl (Buspar) 7.5 mg BID PO Last administered on 09/27/16 09:12; Start 09/12/16 at 21:00; Stop 09/27/16 at 10:31; Status DC Amiodarone HCl (Cordarone) 100 mg DAILY PO Last administered on 09/29/16 08:12 ; Start 09/13/16 at 09:00 Aspirin (Children'S Aspirin) 81 mg DAILY PO Last administered on 09/29/16 08: 11; Start 09/13/16 at 09:00 Famotidine (Pepcid) 20 mg DAILY PO Last administered on 09/29/16 08:13; Start 09/13/16 at 09:00 Lisinopril (Prinivil) 5 mg DAILY PO Last administered on 09/29/16 08:13; Start 09/13/16 at 09:00 Loperamide HCl (Imodium) 2 mg PRN Q4HRS PRN PO DIARRHEA; Start 09/12/16 at 19: 45 Tamsulosin HCl (Flomax) 0.4 mg DAILY PO Last administered on 09/29/16 08:13; Start 09/13/16 at 09:00 Warfarin Sodium (Coumadin) 2.5 mg DAILY16 PO Last administered on 09/14/16 16: 05; Start 09/13/16 at 16:00; Stop 09/15/16 at 15:03; Status DC Multivitamins/ Calcium (Thera-M Plus) 1 tab DAILY PO Last administered on 08:14; Start 09/13/16 at 09:00 Warfarin Sodium (Coumadin) 2 mg DAILY16 PO Last administered on 09/14/16 16:06 ; Start 09/13/16 at 16:00; Stop 09/15/16 at 15:02; Status DC Warfarin Sodium (Coumadin Per Pharmacy) 1 each PRN DAILY PRN MC SEE COMMENTS Last administered on 09/29/16 15:05; Start 09/13/16 at 03:15 Vitamin D (Vitamin D3) 50,000 unit WEEKLY PO Last administered on 09/28/16 09: 40; Start 09/14/16 at 09:00 Selegiline HCl (Eldepryl) 5 mg DAILY PO Last administered on 09/29/16 08:12; Start 09/14/16 at 09:00 Trazodone HCl (Desyrel) 50 mg PRN QHS PRN PO INSOMNIA, MAY REPEAT X1 Last administered on 09/28/16 22:47; Start 09/14/16 at 19:15 Nystatin (Nystop) 1 wilfredo BID TP Last administered on 09/29/16 20:54; Start at 09:00 Nystatin (Nystop) 30 wilfredo STK-MED ONCE TP Last administered on 09/14/16 21:27; Start 09/14/16 at 21:27; Stop 09/14/16 at 21:28; Status DC Warfarin Sodium (Coumadin) 3 mg 1X WARF ONCE PO Last administered on 15:48; Start 09/15/16 at 16:00; Stop 09/15/16 at 16:01; Status DC Warfarin Sodium (Coumadin) 2.5 mg 1X ONCE PO Last administered on 09/15/16 15 :47; Start 09/15/16 at 15:15; Stop 09/15/16 at 15:17; Status DC Warfarin Sodium (Coumadin) 5 mg 1X WARF ONCE PO Last administered on 18:16; Start 09/16/16 at 16:00; Stop 09/16/16 at 16:01; Status DC Warfarin Sodium (Coumadin) 2 mg 1X WARF ONCE PO Last administered on 16:02; Start 09/17/16 at 16:00; Stop 09/17/16 at 16:01; Status DC Warfarin Sodium (Coumadin) 2.5 mg 1X WARF ONCE PO Last administered on 16:03; Start 09/17/16 at 16:00; Stop 09/17/16 at 16:01; Status DC Lorazepam (Ativan) 0.5 mg TID PO Last administered on 09/20/16 20:45; Start at 21:00; Stop 09/20/16 at 21:00; Status DC Lorazepam (Ativan) 0.5 mg BID PO Last administered on 09/24/16 19:38; Start at 09:00; Stop 09/24/16 at 21:01; Status DC Lorazepam (Ativan) 0.5 mg DAILY PO Last administered on 09/27/16 09:15; Start 09/25/16 at 09:00; Stop 09/27/16 at 10:39; Status DC Warfarin Sodium (Coumadin) 2.5 mg 1X WARF ONCE PO Last administered on 14:58; Start 09/18/16 at 16:00; Stop 09/18/16 at 16:01; Status DC Warfarin Sodium (Coumadin) 2 mg 1X WARF ONCE PO Last administered on 14:59; Start 09/18/16 at 16:00; Stop 09/18/16 at 16:01; Status DC Sertraline HCl (Zoloft) 25 mg DAILY PO Last administered on 09/24/16 07:43; Start 09/19/16 at 09:00; Stop 09/24/16 at 18:00; Status DC Warfarin Sodium (Coumadin - No Dose Today) 1 each 1X WARF ONCE MC Last administered on 09/19/16 14:14; Start 09/19/16 at 16:00; Stop 09/19/16 at 16:02 ; Status DC Quetiapine Fumarate (SEROquel) 25 mg QHS PO Last administered on 09/29/16 20: 08; Start 09/20/16 at 21:00 Warfarin Sodium (Coumadin) 2.5 mg 1X WARF ONCE PO Last administered on 16:31; Start 09/20/16 at 16:00; Stop 09/20/16 at 16:01; Status DC Valproic Acid (Depakene) 250 mg BID PO Last administered on 09/25/16 09:29; Start 09/20/16 at 21:00; Stop 09/25/16 at 18:06; Status DC Warfarin Sodium (Coumadin) 2.5 mg 1X WARF ONCE PO Last administered on 16:02; Start 09/21/16 at 16:00; Stop 09/21/16 at 16:01; Status DC Warfarin Sodium (Coumadin) 1 mg 1X WARF ONCE PO Last administered on 16:02; Start 09/21/16 at 16:00; Stop 09/21/16 at 16:01; Status DC Mirtazapine (Remeron) 7.5 mg QHS PO Last administered on 09/26/16 19:21; Start 09/21/16 at 21:00; Stop 09/27/16 at 10:31; Status DC Warfarin Sodium (Coumadin) 4 mg 1X WARF ONCE PO Last administered on 16:31; Start 09/22/16 at 16:00; Stop 09/22/16 at 16:01; Status DC Warfarin Sodium (Coumadin) 4 mg 1X WARF ONCE PO Last administered on 15:42; Start 09/23/16 at 16:00; Stop 09/23/16 at 16:01; Status DC Warfarin Sodium (Coumadin) 4 mg DAILY16 PO Last administered on 09/25/16 16:00 ; Start 09/24/16 at 16:00; Stop 09/26/16 at 08:25; Status DC Sertraline HCl (Zoloft) 50 mg DAILY PO Last administered on 09/29/16 08:14; Start 09/25/16 at 09:00 Valproic Acid (Depakene) 375 mg BID PO Last administered on 09/29/16 20:09; Start 09/25/16 at 21:00 Warfarin Sodium (Coumadin) 2 mg DAILY16 PO Last administered on 09/29/16 17:28 ; Start 09/26/16 at 16:00 Warfarin Sodium (Coumadin) 2.5 mg DAILY16 PO Last administered on 09/29/16 17: 28; Start 09/26/16 at 16:00 Quetiapine Fumarate (SEROquel) 12.5 mg BID92 PO Last administered on 09/29/16 13:51; Start 09/27/16 at 09:00 Buspirone HCl (Buspar) 10 mg TID PO Last administered on 09/29/16 20:09; Start 09/27/16 at 14:00 Mirtazapine (Remeron) 15 mg QHS PO Last administered on 09/29/16 20:09; Start 09/27/16 at 21:00 Lorazepam (Ativan) 0.5 mg DAILY PO Last administered on 09/29/16 08:11; Start 09/28/16 at 09:00 Active Scripts Active Reported Therems-M (Multivits,Th W-Fe,Other Min) 1 Each Tablet 1 Each PO DAILY Tamsulosin Hcl 0.4 Mg Cap.er.24h 0.4 Mg PO DAILY Lisinopril 5 Mg Tablet 5 Mg PO DAILY Famotidine 20 Mg Tablet 20 Mg PO DAILY Emsam (Selegiline) 1 Each Patch.td24 1 Each TD DAILY Aspirin 81 Mg Tab.chew 81 Mg PO DAILY Amiodarone Hcl 200 Mg Tablet 100 Mg PO DAILY Depakote (Divalproex Sodium) 250 Mg Tablet.dr 250 Mg PO BID Coumadin (Warfarin Sodium) 4 Mg Tablet 4.5 Mg PO DAILY Ativan (Lorazepam) 0.5 Mg Tablet 0.5 Mg PO PRN BID PRN Imodium A-D (Loperamide HCl) 2 Mg Capsule 2 Mg PO PRN PRN MDD 12 mg Ativan (Lorazepam) 1 Mg Tablet 1 Mg PO BID Buspirone Hcl 7.5 Mg Tablet 7.5 Mg PO BID Diagnosis: Problems: (1) Dementia LINDSAY BROWN MD September 29, 2016 22:53
[2016-09-30] MEDS: traZODone 50 MG TABLET. PO PRN ×2 (00:48→19:23)
[2016-09-30 06:03] VITALS: BP 118/80
[2016-09-30] MEDS: VALPROATE ACID 250 MG/5 ML ORAL SOLUTION PO SCH ×2 (08:57→19:24)
[2016-09-30] MEDS: NYSTATIN TOPICAL POWDER 30GM BOTTLE. TP SCH ×2 (09:00→19:24)
[2016-09-30] MEDS: busPIRone 10 MG TABLET. PO SCH ×3 (09:01→19:23)
[2016-09-30] MEDS: FAMOTIDINE 20 MG TABLET PO SCH (09:01)
[2016-09-30] MEDS: SELEGILINE 5 MG PO SCH (09:01)
[2016-09-30] MEDS: LISINOPRIL 5 MG TABLET. PO SCH (09:01)
[2016-09-30] MEDS: TAMSULOSIN 0.4 MG CAP.ER.24H. PO SCH (09:01)
[2016-09-30] MEDS: ASPIRIN 81 MG TAB.CHEW PO SCH (09:01)
[2016-09-30] MEDS: MULTIVITAMIN with MINERAL TABLET. PO SCH (09:01)
[2016-09-30] MEDS: QUEtiapine 25 MG TABLET. PO SCH ×3 (09:02→19:23)
[2016-09-30] MEDS: AMIODARONE HCL 200 MG TABLET PO SCH (09:02)
[2016-09-30] MEDS: SERTRALINE 50 MG TABLET. PO SCH (09:02)
[2016-09-30] MEDS: LORazepam 0.5 MG TABLET PO SCH ×2 (09:03→19:23)
--- NOTE | 2016-09-30 10:52 | NUR ---
Behavior Intervention Response and Plan: BIRP Note: Behavior: Assumed Care of patient, patient located in Hallway at shift change. Patient exhibited the following behavior Wandering, Disorganized, Delusions. Brief assessment on rounds of vital signs, medication needs, lab studies, and pain. Treatment plan problems 1-2. Intervention: Patient assessed and the following interventions initiated safety checks 15 Minute Checks Cognitive Assessment , Head to toe Assessment , Medications. Response: After interactions and interventions patient responded in the following manner, Disorganized , Wandering ,Compliant. Continue to assess behaviors and condition will continue to monitor throughout the shift as needed. Plan: Continue to monitor Master Treatment Plan for patient's progress toward short term goals of Decreased Anxiety, Medication Compliance, intermediate goals to return to previous living setting vs placement. Continue to assess patient for changes in above assessment. Monitor for medication needs, pain, and safety concerns. Hourly rounding performed to ensure safe environment.
[2016-09-30] MEDS: WARFARIN 2 MG TABLET. PO SCH (15:45)
[2016-09-30] MEDS: WARFARIN 2.5 MG TABLET. PO SCH (15:45)
[2016-09-30 16:25] VITALS: BP 105/75
[2016-09-30] MEDS: LORazepam 0.5 MG TABLET PO PRN (16:39)
--- NOTE | 2016-09-30 16:43 | NUR ---
Pt becoming increasingly anxious and delusional. Pt stated that he was trying to get the truck working and was asking about animals being butchered. Pt became angry with redirection. PRN Ativan administered. Will continue to monitor.
[2016-09-30] MEDS: MIRTAZAPINE 15 MG TABLET PO SCH (19:25)
--- NOTE | 2016-09-30 21:11 | PDOC ---
Exam Blake Demential Exam: Blake Note: Please also refer to the separate dictated note~for this date of service dictated separately.~Patient seen individually. Discussed the patient with Nursing staff reviewed the chart.~Reviewed interim history and current functioning. Reviewed vital signs,~Labs/ Radiology~and current medications noted below. Continue current treatment with the changes noted in the dictated addendum note Assessment: Vital Signs: Vital Signs Date Time Temp Pulse Resp B/P (MAP) Pulse Ox O2 Delivery O2 Flow Rate FiO2 09/30/16 16:25 98.2 78 18 105/75 (85) 96 Room Air I&O Intake and Output 09/30/16 07:00 Intake Total 840 ml Balance 840 ml Intake Oral 840 ml # Voids 2 Current Medications: Meds: Current Medications Acetaminophen (Tylenol) 650 mg PRN Q6HRS PRN PO PAIN / TEMP Last administered on 09/15/16 20:02; Start 09/12/16 at 19:15 Multi-Ingredient Ointment (Analgesic [place]) 1 wilfredo PRN QID PRN TP MUSCLE PAIN; Start 09/12/16 at 19:15 Al Hydroxide/Mg Hydroxide (Mylanta Plus Xs) 15 ml PRN AFTMEALHC PRN PO DYSPEPSIA; Start 09/12/16 at 19:15 Magnesium Hydroxide (Milk Of Magnesia) 2,400 mg PRN QHS PRN PO CONSTIPATION; Start 09/12/16 at 19:15 Divalproex Sodium (Depakote) 250 mg BID PO Last administered on 09/20/16 08:38 ; Start 09/12/16 at 21:00; Stop 09/20/16 at 10:41; Status DC Lorazepam (Ativan) 0.5 mg PRN BID PRN PO ANXIETY / AGITATION Last administered on 09/30/16 16:39; Start 09/12/16 at 19:45 Lorazepam (Ativan) 1 mg BID PO Last administered on 09/17/16 08:49; Start 02/19 at 21:00; Stop 09/17/16 at 18:05; Status DC Selegiline HCl (Emsam) 1 patch DAILY TD ; Start 09/13/16 at 09:00; Stop at 18:35; Status DC Buspirone HCl (Buspar) 7.5 mg BID PO Last administered on 09/27/16 09:12; Start 09/12/16 at 21:00; Stop 09/27/16 at 10:31; Status DC Amiodarone HCl (Cordarone) 100 mg DAILY PO Last administered on 09/30/16 09:02 ; Start 09/13/16 at 09:00 Aspirin (Children'S Aspirin) 81 mg DAILY PO Last administered on 09/30/16 09: 01; Start 09/13/16 at 09:00 Famotidine (Pepcid) 20 mg DAILY PO Last administered on 09/30/16 09:01; Start 09/13/16 at 09:00 Lisinopril (Prinivil) 5 mg DAILY PO Last administered on 09/30/16 09:01; Start 09/13/16 at 09:00 Loperamide HCl (Imodium) 2 mg PRN Q4HRS PRN PO DIARRHEA; Start 09/12/16 at 19: 45 Tamsulosin HCl (Flomax) 0.4 mg DAILY PO Last administered on 09/30/16 09:01; Start 09/13/16 at 09:00 Warfarin Sodium (Coumadin) 2.5 mg DAILY16 PO Last administered on 09/14/16 16: 05; Start 09/13/16 at 16:00; Stop 09/15/16 at 15:03; Status DC Multivitamins/ Calcium (Thera-M Plus) 1 tab DAILY PO Last administered on 09:01; Start 09/13/16 at 09:00 Warfarin Sodium (Coumadin) 2 mg DAILY16 PO Last administered on 09/14/16 16:06 ; Start 09/13/16 at 16:00; Stop 09/15/16 at 15:02; Status DC Warfarin Sodium (Coumadin Per Pharmacy) 1 each PRN DAILY PRN MC SEE COMMENTS Last administered on 09/29/16 15:05; Start 09/13/16 at 03:15 Vitamin D (Vitamin D3) 50,000 unit WEEKLY PO Last administered on 09/28/16 09: 40; Start 09/14/16 at 09:00 Selegiline HCl (Eldepryl) 5 mg DAILY PO Last administered on 09/30/16 09:01; Start 09/14/16 at 09:00 Trazodone HCl (Desyrel) 50 mg PRN QHS PRN PO INSOMNIA, MAY REPEAT X1 Last administered on 09/30/16 19:23; Start 09/14/16 at 19:15 Nystatin (Nystop) 1 wilfredo BID TP Last administered on 09/30/16 19:24; Start at 09:00 Nystatin (Nystop) 30 wilfredo STK-MED ONCE TP Last administered on 09/14/16 21:27; Start 09/14/16 at 21:27; Stop 09/14/16 at 21:28; Status DC Warfarin Sodium (Coumadin) 3 mg 1X WARF ONCE PO Last administered on 15:48; Start 09/15/16 at 16:00; Stop 09/15/16 at 16:01; Status DC Warfarin Sodium (Coumadin) 2.5 mg 1X ONCE PO Last administered on 09/15/16 15 :47; Start 09/15/16 at 15:15; Stop 09/15/16 at 15:17; Status DC Warfarin Sodium (Coumadin) 5 mg 1X WARF ONCE PO Last administered on 18:16; Start 09/16/16 at 16:00; Stop 09/16/16 at 16:01; Status DC Warfarin Sodium (Coumadin) 2 mg 1X WARF ONCE PO Last administered on 16:02; Start 09/17/16 at 16:00; Stop 09/17/16 at 16:01; Status DC Warfarin Sodium (Coumadin) 2.5 mg 1X WARF ONCE PO Last administered on 16:03; Start 09/17/16 at 16:00; Stop 09/17/16 at 16:01; Status DC Lorazepam (Ativan) 0.5 mg TID PO Last administered on 09/20/16 20:45; Start at 21:00; Stop 09/20/16 at 21:00; Status DC Lorazepam (Ativan) 0.5 mg BID PO Last administered on 09/24/16 19:38; Start at 09:00; Stop 09/24/16 at 21:01; Status DC Lorazepam (Ativan) 0.5 mg DAILY PO Last administered on 09/27/16 09:15; Start 09/25/16 at 09:00; Stop 09/27/16 at 10:39; Status DC Warfarin Sodium (Coumadin) 2.5 mg 1X WARF ONCE PO Last administered on 14:58; Start 09/18/16 at 16:00; Stop 09/18/16 at 16:01; Status DC Warfarin Sodium (Coumadin) 2 mg 1X WARF ONCE PO Last administered on 14:59; Start 09/18/16 at 16:00; Stop 09/18/16 at 16:01; Status DC Sertraline HCl (Zoloft) 25 mg DAILY PO Last administered on 09/24/16 07:43; Start 09/19/16 at 09:00; Stop 09/24/16 at 18:00; Status DC Warfarin Sodium (Coumadin - No Dose Today) 1 each 1X WARF ONCE MC Last administered on 09/19/16 14:14; Start 09/19/16 at 16:00; Stop 09/19/16 at 16:02 ; Status DC Quetiapine Fumarate (SEROquel) 25 mg QHS PO Last administered on 09/30/16 19: 23; Start 09/20/16 at 21:00 Warfarin Sodium (Coumadin) 2.5 mg 1X WARF ONCE PO Last administered on 16:31; Start 09/20/16 at 16:00; Stop 09/20/16 at 16:01; Status DC Valproic Acid (Depakene) 250 mg BID PO Last administered on 09/25/16 09:29; Start 09/20/16 at 21:00; Stop 09/25/16 at 18:06; Status DC Warfarin Sodium (Coumadin) 2.5 mg 1X WARF ONCE PO Last administered on 16:02; Start 09/21/16 at 16:00; Stop 09/21/16 at 16:01; Status DC Warfarin Sodium (Coumadin) 1 mg 1X WARF ONCE PO Last administered on 16:02; Start 09/21/16 at 16:00; Stop 09/21/16 at 16:01; Status DC Mirtazapine (Remeron) 7.5 mg QHS PO Last administered on 09/26/16 19:21; Start 09/21/16 at 21:00; Stop 09/27/16 at 10:31; Status DC Warfarin Sodium (Coumadin) 4 mg 1X WARF ONCE PO Last administered on 16:31; Start 09/22/16 at 16:00; Stop 09/22/16 at 16:01; Status DC Warfarin Sodium (Coumadin) 4 mg 1X WARF ONCE PO Last administered on 15:42; Start 09/23/16 at 16:00; Stop 09/23/16 at 16:01; Status DC Warfarin Sodium (Coumadin) 4 mg DAILY16 PO Last administered on 09/25/16 16:00 ; Start 09/24/16 at 16:00; Stop 09/26/16 at 08:25; Status DC Sertraline HCl (Zoloft) 50 mg DAILY PO Last administered on 09/30/16 09:02; Start 09/25/16 at 09:00 Valproic Acid (Depakene) 375 mg BID PO Last administered on 09/30/16 19:24; Start 09/25/16 at 21:00 Warfarin Sodium (Coumadin) 2 mg DAILY16 PO Last administered on 09/30/16 15:45 ; Start 09/26/16 at 16:00 Warfarin Sodium (Coumadin) 2.5 mg DAILY16 PO Last administered on 09/30/16 15: 45; Start 09/26/16 at 16:00 Quetiapine Fumarate (SEROquel) 12.5 mg BID92 PO Last administered on 09/30/16 13:36; Start 09/27/16 at 09:00 Buspirone HCl (Buspar) 10 mg TID PO Last administered on 09/30/16 19:23; Start 09/27/16 at 14:00 Mirtazapine (Remeron) 15 mg QHS PO Last administered on 09/30/16 19:25; Start 09/27/16 at 21:00 Lorazepam (Ativan) 0.5 mg DAILY PO Last administered on 09/30/16 19:23; Start 09/28/16 at 09:00 Active Scripts Active Reported Therems-M (Multivits,Th W-Fe,Other Min) 1 Each Tablet 1 Each PO DAILY Tamsulosin Hcl 0.4 Mg Cap.er.24h 0.4 Mg PO DAILY Lisinopril 5 Mg Tablet 5 Mg PO DAILY Famotidine 20 Mg Tablet 20 Mg PO DAILY Emsam (Selegiline) 1 Each Patch.td24 1 Each TD DAILY Aspirin 81 Mg Tab.chew 81 Mg PO DAILY Amiodarone Hcl 200 Mg Tablet 100 Mg PO DAILY Depakote (Divalproex Sodium) 250 Mg Tablet.dr 250 Mg PO BID Coumadin (Warfarin Sodium) 4 Mg Tablet 4.5 Mg PO DAILY Ativan (Lorazepam) 0.5 Mg Tablet 0.5 Mg PO PRN BID PRN Imodium A-D (Loperamide HCl) 2 Mg Capsule 2 Mg PO PRN PRN MDD 12 mg Ativan (Lorazepam) 1 Mg Tablet 1 Mg PO BID Buspirone Hcl 7.5 Mg Tablet 7.5 Mg PO BID LINDSAY BROWN MD September 30, 2016 21:11
--- NOTE | 2016-09-30 23:45 | NUR ---
Behavior Intervention Response and Plan: BIRP Note: Behavior: Assumed Care of patient, patient located in Hallway at shift change. Patient exhibited the following behavior Exit Seeking, Restless, Agitated. Brief assessment on rounds of vital signs, medication needs, lab studies, and pain. Treatment plan problems ;1-2 Intervention: Patient assessed and the following interventions initiated safety checks 15 Minute Checks Cognitive Assessment , Head to toe Assessment , Medications. Response: After interactions and interventions patient responded in the following manner, Disorganized , Delusions ,Defensive. Continue to assess behaviors and condition will continue to monitor throughout the shift as needed. Plan: Continue to monitor Master Treatment Plan for patient's progress toward short term goals of Decreased Agitation, Improved Mood, extermination supervisor goals to return to previous living setting vs placement. Continue to assess patient for changes in above assessment. Monitor for medication needs, pain, and safety concerns. Hourly rounding performed to ensure safe environment.
--- NOTE | 2016-10-01 00:14 | NUR ---
Nsg Note: Pt was walking in the [place]e @ shift change as he approached me he stated "How the hell do I get out of here... my truck is right out there... I need to innoculate some cattle...." Attempts to reorient pt met w/ increasing agitation. I then asked pt if he would like to speak w/ his so that she could reassure him that everythin was being taken care of. He agreed to do so & after he spoke w/ her he was calmer but still wanting to leave. His hs meds were given crushed in ice cream & he received prn ativan & trazadone @ the same time. These were effective AEB pt agreeing to take a shower & settling @ HS without further difficulty. Discussed the above w/ Dr Hadley & he increased pt dosage of scheduled seroquel. Will cont. to monitor.
--- NOTE | 2016-10-01 01:39 | PN ---
DATE: 09/28/2016 PSYCHIATRIC PROGRESS NOTE This is a late entry of 09/28/2016 covers elements not covered in my initial note. SUBJECTIVE: The patient refused a.m. medications took them in breakfast. Family visited x2, but he had forgotten after his had left, took his meds whole in the evening. REVIEW OF SYSTEMS: No CV, , pulmonary, eye, ENT system symptoms on review. Reliability poor. MENTAL STATUS EXAM: Oriented to himself. Insight, judgment, recent and remote memory, attention, concentration, fund of knowledge poor, consistent with his diagnosis mentioned in my initial note. PLAN: Continue current psychotropics. Adjust as clinically indicated. MAN Phoenix BROWN MD DR: JEREL/tavo JOB#: [id number] / [id number]
--- NOTE | 2016-10-01 01:44 | PN ---
DATE: 09/29/2016 PSYCHIATRIC PROGRESS NOTE This is a late entry of 09/29/2016. SUBJECTIVE: The patient was seen individually. Per nursing report, he did well previous evening at 3:00 p.m. He was upset at telephone conversation with his felt he was in [place], [place] stated he need to get out of here to go to his ranch/farm and "I will sit on ____" if I need to do that to get out of here." REVIEW OF SYSTEMS: No CV, , pulmonary, eye system symptoms on review. Reliability poor. MENTAL STATUS EXAM: Oriented to himself. Insight, judgment, recent and remote memory, attention, concentration, fund of knowledge poor, consistent with his diagnosis mentioned in my initial note. PLAN: Increase Zoloft to 50 mg a day. Continue rest psychotropics in initial note. MAN Phoenix BROWN MD DR: JEREL/tavo JOB#: [id number] / [id number]
[2016-10-01 06:13] VITALS: BP 111/73
[2016-10-01] MEDS: NYSTATIN TOPICAL POWDER 30GM BOTTLE. TP SCH ×2 (09:00→19:44)
[2016-10-01] MEDS: SELEGILINE 5 MG PO SCH (09:17)
[2016-10-01] MEDS: VALPROATE ACID 250 MG/5 ML ORAL SOLUTION PO SCH ×2 (09:17→19:44)
[2016-10-01] MEDS: ASPIRIN 81 MG TAB.CHEW PO SCH (09:18)
[2016-10-01] MEDS: MULTIVITAMIN with MINERAL TABLET. PO SCH (09:18)
[2016-10-01] MEDS: LORazepam 0.5 MG TABLET PO SCH (09:18)
[2016-10-01] MEDS: LISINOPRIL 5 MG TABLET. PO SCH (09:18)
[2016-10-01] MEDS: SERTRALINE 50 MG TABLET. PO SCH (09:18)
[2016-10-01] MEDS: busPIRone 10 MG TABLET. PO SCH ×3 (09:18→19:44)
[2016-10-01] MEDS: TAMSULOSIN 0.4 MG CAP.ER.24H. PO SCH (09:19)
[2016-10-01] MEDS: FAMOTIDINE 20 MG TABLET PO SCH (09:19)
[2016-10-01] MEDS: AMIODARONE HCL 200 MG TABLET PO SCH (09:19)
[2016-10-01] MEDS: QUEtiapine 25 MG TABLET. PO SCH ×4 (09:21→19:44)
--- NOTE | 2016-10-01 11:01 | NUR ---
Behavior Intervention Response and Plan: BIRP Note: Behavior: Assumed Care of patient, patient located in Day Room at shift change. Patient exhibited the following behavior Disorganized, Drowsy, Cooperative. Brief assessment on rounds of vital signs, medication needs, lab studies, and pain. Treatment plan problems 1-2. Intervention: Patient assessed and the following interventions initiated safety checks 15 Minute Checks Cognitive Assessment , Head to toe Assessment , Medications. Response: After interactions and interventions patient responded in the following manner, Disorganized , Drowsy ,Cooperative. Continue to assess behaviors and condition will continue to monitor throughout the shift as needed. Plan: Continue to monitor Master Treatment Plan for patient's progress toward short term goals of Decreased Anxiety, Decreased Agitation, manager terminal goals to return to previous living setting vs placement. Continue to assess patient for changes in above assessment. Monitor for medication needs, pain, and safety concerns. Hourly rounding performed to ensure safe environment.
--- NOTE | 2016-10-01 14:00 | NUR ---
THERAPEUTIC RECREATION GROUP NOTE TITLE :: Ice Cream and Program ACTIVITY : Social Events and Holidays GOAL : Facilitate sense of belonging and well-being, elevate mood, increase socialization and social skills. Incorporate traditions. DURATION : 120 Minutes RESPONSE : Moderate participation. Pt. ate ice cream and listened to the program with the group. He closed his eyes during the middle and needed redirection but was compliant and pleasant.
[2016-10-01 15:52] VITALS: BP 125/70
[2016-10-01] MEDS: WARFARIN 2.5 MG TABLET. PO SCH (17:10)
[2016-10-01] MEDS: WARFARIN 2 MG TABLET. PO SCH (17:11)
[2016-10-01] MEDS: MIRTAZAPINE 15 MG TABLET PO SCH (19:44)
--- NOTE | 2016-10-01 20:26 | NUR ---
Behavior Intervention Response and Plan: BIRP Note: Behavior: Assumed Care of patient, patient located in Bathroom at shift change. Patient exhibited the following behavior Interactive, Disorganized, Able to Focus on Task. Brief assessment on rounds of vital signs, medication needs, lab studies, and pain. Treatment plan problems:1-2 Intervention: Patient assessed and the following interventions initiated safety checks 15 Minute Checks Cognitive Assessment , Head to toe Assessment , Medications. Response: After interactions and interventions patient responded in the following manner, Calm , Able to Focus on Task ,Cooperative. Continue to assess behaviors and condition will continue to monitor throughout the shift as needed. Plan: Continue to monitor Master Treatment Plan for patient's progress toward short term goals of Decreased Agitation, Improved Mood, senior living goals to return to previous living setting vs placement. Continue to assess patient for changes in above assessment. Monitor for medication needs, pain, and safety concerns. Hourly rounding performed to ensure safe environment.
--- NOTE | 2016-10-01 21:04 | PDOC ---
Exam Blake Demential Exam: Blake Note: Please also refer to the separate dictated note~for this date of service dictated separately.~Patient seen individually. Discussed the patient with Nursing staff reviewed the chart.~Reviewed interim history and current functioning. Reviewed vital signs,~Labs/ Radiology~and current medications noted below. Continue current treatment with the changes noted in the dictated addendum note Assessment: Vital Signs: Vital Signs Date Time Temp Pulse Resp B/P (MAP) Pulse Ox O2 Delivery O2 Flow Rate FiO2 10/01/16 15:52 97.2 112 21 125/70 (88) 97 09/30/16 16:25 Room Air I&O Intake and Output 10/01/16 07:00 Intake Total 1205 ml Balance 1205 ml Intake Oral 1205 ml # Voids 1 Labs: Laboratory Tests Test 10/01/16 07:38 Prothrombin Time 23.7 SEC (9.4-11.4) H Prothrombin Time INR 2.3 (0.9-1.1) H Current Medications: Meds: Current Medications Acetaminophen (Tylenol) 650 mg PRN Q6HRS PRN PO PAIN / TEMP Last administered on 09/15/16 20:02; Start 09/12/16 at 19:15 Multi-Ingredient Ointment (Analgesic Henderson) 1 wilfredo PRN QID PRN TP MUSCLE PAIN; Start 09/12/16 at 19:15 Al Hydroxide/Mg Hydroxide (Mylanta Plus Xs) 15 ml PRN AFTMEALHC PRN PO DYSPEPSIA; Start 09/12/16 at 19:15 Magnesium Hydroxide (Milk Of Magnesia) 2,400 mg PRN QHS PRN PO CONSTIPATION; Start 09/12/16 at 19:15 Divalproex Sodium (Depakote) 250 mg BID PO Last administered on 09/20/16 08:38 ; Start 09/12/16 at 21:00; Stop 09/20/16 at 10:41; Status DC Lorazepam (Ativan) 0.5 mg PRN BID PRN PO ANXIETY / AGITATION Last administered on 09/30/16 16:39; Start 09/12/16 at 19:45 Lorazepam (Ativan) 1 mg BID PO Last administered on 09/17/16 08:49; Start 02/19 at 21:00; Stop 09/17/16 at 18:05; Status DC Selegiline HCl (Emsam) 1 patch DAILY TD ; Start 09/13/16 at 09:00; Stop at 18:35; Status DC Buspirone HCl (Buspar) 7.5 mg BID PO Last administered on 09/27/16 09:12; Start 09/12/16 at 21:00; Stop 09/27/16 at 10:31; Status DC Amiodarone HCl (Cordarone) 100 mg DAILY PO Last administered on 10/01/16 09:19 ; Start 09/13/16 at 09:00 Aspirin (Children'S Aspirin) 81 mg DAILY PO Last administered on 10/01/16 09: 18; Start 09/13/16 at 09:00 Famotidine (Pepcid) 20 mg DAILY PO Last administered on 10/01/16 09:19; Start 09/13/16 at 09:00 Lisinopril (Prinivil) 5 mg DAILY PO Last administered on 10/01/16 09:18; Start 09/13/16 at 09:00 Loperamide HCl (Imodium) 2 mg PRN Q4HRS PRN PO DIARRHEA; Start 09/12/16 at 19: 45 Tamsulosin HCl (Flomax) 0.4 mg DAILY PO Last administered on 10/01/16 09:19; Start 09/13/16 at 09:00 Warfarin Sodium (Coumadin) 2.5 mg DAILY16 PO Last administered on 09/14/16 16: 05; Start 09/13/16 at 16:00; Stop 09/15/16 at 15:03; Status DC Multivitamins/ Calcium (Thera-M Plus) 1 tab DAILY PO Last administered on 09:18; Start 09/13/16 at 09:00 Warfarin Sodium (Coumadin) 2 mg DAILY16 PO Last administered on 09/14/16 16:06 ; Start 09/13/16 at 16:00; Stop 09/15/16 at 15:02; Status DC Warfarin Sodium (Coumadin Per Pharmacy) 1 each PRN DAILY PRN MC SEE COMMENTS Last administered on 09/29/16 15:05; Start 09/13/16 at 03:15 Vitamin D (Vitamin D3) 50,000 unit WEEKLY PO Last administered on 09/28/16 09: 40; Start 09/14/16 at 09:00 Selegiline HCl (Eldepryl) 5 mg DAILY PO Last administered on 10/01/16 09:17; Start 09/14/16 at 09:00 Trazodone HCl (Desyrel) 50 mg PRN QHS PRN PO INSOMNIA, MAY REPEAT X1 Last administered on 09/30/16 19:23; Start 09/14/16 at 19:15 Nystatin (Nystop) 1 wilfredo BID TP Last administered on 10/01/16 19:44; Start at 09:00 Nystatin (Nystop) 30 wilfredo STK-MED ONCE TP Last administered on 09/14/16 21:27; Start 09/14/16 at 21:27; Stop 09/14/16 at 21:28; Status DC Warfarin Sodium (Coumadin) 3 mg 1X WARF ONCE PO Last administered on 15:48; Start 09/15/16 at 16:00; Stop 09/15/16 at 16:01; Status DC Warfarin Sodium (Coumadin) 2.5 mg 1X ONCE PO Last administered on 09/15/16 15 :47; Start 09/15/16 at 15:15; Stop 09/15/16 at 15:17; Status DC Warfarin Sodium (Coumadin) 5 mg 1X WARF ONCE PO Last administered on 18:16; Start 09/16/16 at 16:00; Stop 09/16/16 at 16:01; Status DC Warfarin Sodium (Coumadin) 2 mg 1X WARF ONCE PO Last administered on 16:02; Start 09/17/16 at 16:00; Stop 09/17/16 at 16:01; Status DC Warfarin Sodium (Coumadin) 2.5 mg 1X WARF ONCE PO Last administered on 16:03; Start 09/17/16 at 16:00; Stop 09/17/16 at 16:01; Status DC Lorazepam (Ativan) 0.5 mg TID PO Last administered on 09/20/16 20:45; Start at 21:00; Stop 09/20/16 at 21:00; Status DC Lorazepam (Ativan) 0.5 mg BID PO Last administered on 09/24/16 19:38; Start at 09:00; Stop 09/24/16 at 21:01; Status DC Lorazepam (Ativan) 0.5 mg DAILY PO Last administered on 09/27/16 09:15; Start 09/25/16 at 09:00; Stop 09/27/16 at 10:39; Status DC Warfarin Sodium (Coumadin) 2.5 mg 1X WARF ONCE PO Last administered on 14:58; Start 09/18/16 at 16:00; Stop 09/18/16 at 16:01; Status DC Warfarin Sodium (Coumadin) 2 mg 1X WARF ONCE PO Last administered on 14:59; Start 09/18/16 at 16:00; Stop 09/18/16 at 16:01; Status DC Sertraline HCl (Zoloft) 25 mg DAILY PO Last administered on 09/24/16 07:43; Start 09/19/16 at 09:00; Stop 09/24/16 at 18:00; Status DC Warfarin Sodium (Coumadin - No Dose Today) 1 each 1X WARF ONCE MC Last administered on 09/19/16 14:14; Start 09/19/16 at 16:00; Stop 09/19/16 at 16:02 ; Status DC Quetiapine Fumarate (SEROquel) 25 mg QHS PO Last administered on 10/01/16 19: 44; Start 09/20/16 at 21:00 Warfarin Sodium (Coumadin) 2.5 mg 1X WARF ONCE PO Last administered on 16:31; Start 09/20/16 at 16:00; Stop 09/20/16 at 16:01; Status DC Valproic Acid (Depakene) 250 mg BID PO Last administered on 09/25/16 09:29; Start 09/20/16 at 21:00; Stop 09/25/16 at 18:06; Status DC Warfarin Sodium (Coumadin) 2.5 mg 1X WARF ONCE PO Last administered on 16:02; Start 09/21/16 at 16:00; Stop 09/21/16 at 16:01; Status DC Warfarin Sodium (Coumadin) 1 mg 1X WARF ONCE PO Last administered on 16:02; Start 09/21/16 at 16:00; Stop 09/21/16 at 16:01; Status DC Mirtazapine (Remeron) 7.5 mg QHS PO Last administered on 09/26/16 19:21; Start 09/21/16 at 21:00; Stop 09/27/16 at 10:31; Status DC Warfarin Sodium (Coumadin) 4 mg 1X WARF ONCE PO Last administered on 16:31; Start 09/22/16 at 16:00; Stop 09/22/16 at 16:01; Status DC Warfarin Sodium (Coumadin) 4 mg 1X WARF ONCE PO Last administered on 15:42; Start 09/23/16 at 16:00; Stop 09/23/16 at 16:01; Status DC Warfarin Sodium (Coumadin) 4 mg DAILY16 PO Last administered on 09/25/16 16:00 ; Start 09/24/16 at 16:00; Stop 09/26/16 at 08:25; Status DC Sertraline HCl (Zoloft) 50 mg DAILY PO Last administered on 10/01/16 09:18; Start 09/25/16 at 09:00 Valproic Acid (Depakene) 375 mg BID PO Last administered on 10/01/16 19:44; Start 09/25/16 at 21:00 Warfarin Sodium (Coumadin) 2 mg DAILY16 PO Last administered on 10/01/16 17:11 ; Start 09/26/16 at 16:00 Warfarin Sodium (Coumadin) 2.5 mg DAILY16 PO Last administered on 10/01/16 17: 10; Start 09/26/16 at 16:00 Quetiapine Fumarate (SEROquel) 12.5 mg BID92 PO Last administered on 09/30/16 13:36; Start 09/27/16 at 09:00; Stop 09/30/16 at 22:00; Status DC Buspirone HCl (Buspar) 10 mg TID PO Last administered on 10/01/16 19:44; Start 09/27/16 at 14:00 Mirtazapine (Remeron) 15 mg QHS PO Last administered on 10/01/16 19:44; Start 09/27/16 at 21:00 Lorazepam (Ativan) 0.5 mg DAILY PO Last administered on 10/01/16 09:18; Start 09/28/16 at 09:00 Quetiapine Fumarate (SEROquel) 12.5 mg 0900,1400,1700 PO Last administered on 17:11; Start 10/01/16 at 09:00 Active Scripts Active Reported Therems-M (Multivits,Th W-Fe,Other Min) 1 Each Tablet 1 Each PO DAILY Tamsulosin Hcl 0.4 Mg Cap.er.24h 0.4 Mg PO DAILY Lisinopril 5 Mg Tablet 5 Mg PO DAILY Famotidine 20 Mg Tablet 20 Mg PO DAILY Emsam (Selegiline) 1 Each Patch.td24 1 Each TD DAILY Aspirin 81 Mg Tab.chew 81 Mg PO DAILY Amiodarone Hcl 200 Mg Tablet 100 Mg PO DAILY Depakote (Divalproex Sodium) 250 Mg Tablet.dr 250 Mg PO BID Coumadin (Warfarin Sodium) 4 Mg Tablet 4.5 Mg PO DAILY Ativan (Lorazepam) 0.5 Mg Tablet 0.5 Mg PO PRN BID PRN Imodium A-D (Loperamide HCl) 2 Mg Capsule 2 Mg PO PRN PRN MDD 12 mg Ativan (Lorazepam) 1 Mg Tablet 1 Mg PO BID Buspirone Hcl 7.5 Mg Tablet 7.5 Mg PO BID LINDSAY BROWN MD October 01, 2016 21:04
[2016-10-02 05:53] VITALS: BP 116/79
[2016-10-02] MEDS: NYSTATIN TOPICAL POWDER 30GM BOTTLE. TP SCH ×2 (09:00→19:32)
[2016-10-02] MEDS: LISINOPRIL 5 MG TABLET. PO SCH (09:34)
[2016-10-02] MEDS: VALPROATE ACID 250 MG/5 ML ORAL SOLUTION PO SCH ×2 (09:34→19:31)
[2016-10-02] MEDS: TAMSULOSIN 0.4 MG CAP.ER.24H. PO SCH (09:34)
[2016-10-02] MEDS: SELEGILINE 5 MG PO SCH (09:34)
[2016-10-02] MEDS: QUEtiapine 25 MG TABLET. PO SCH ×4 (09:35→19:30)
[2016-10-02] MEDS: AMIODARONE HCL 200 MG TABLET PO SCH (09:35)
[2016-10-02] MEDS: SERTRALINE 50 MG TABLET. PO SCH (09:35)
[2016-10-02] MEDS: busPIRone 10 MG TABLET. PO SCH ×3 (09:36→19:30)
[2016-10-02] MEDS: FAMOTIDINE 20 MG TABLET PO SCH (09:36)
[2016-10-02] MEDS: MULTIVITAMIN with MINERAL TABLET. PO SCH (09:36)
[2016-10-02] MEDS: ASPIRIN 81 MG TAB.CHEW PO SCH (09:36)
--- NOTE | 2016-10-02 10:37 | NUR ---
Behavior Intervention Response and Plan: BIRP Note: Behavior: Assumed Care of patient, patient located in Day Room at shift change. Patient exhibited the following behavior Calm, Disorganized, Compliant. Brief assessment on rounds of vital signs, medication needs, lab studies, and pain. Treatment plan problems 1-2. Intervention: Patient assessed and the following interventions initiated safety checks 15 Minute Checks Cognitive Assessment , Head to toe Assessment , Medications. Response: After interactions and interventions patient responded in the following manner, Disorganized , Calm ,Drowsy. Continue to assess behaviors and condition will continue to monitor throughout the shift as needed. Plan: Continue to monitor Master Treatment Plan for patient's progress toward short term goals of Decreased Agitation, Medication Compliance, intermediate goals to return to previous living setting vs placement. Continue to assess patient for changes in above assessment. Monitor for medication needs, pain, and safety concerns. Hourly rounding performed to ensure safe environment.
--- NOTE | 2016-10-02 13:35 | NUR ---
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 Interventions: Reinforcement Response: Pts talked about what qualities they have that make them a good neighbor as well as what makes a good neighbor. Pts answered questions around how to be a good neighbor in their current living environment. Plan: Group Participation Additional Comments:
--- NOTE | 2016-10-02 14:00 | NUR ---
THERAPEUTIC RECREATION GROUP NOTE TITLE :Sing along with Deidra and Vielka ACTIVITY : Music GOAL : Increase socialization, elevate mood, stimulate memory DURATION : 120 Minutes RESPONSE : Full participation. Pt. needed encouragement and prompting to stay awake and sing. He complied and sang along to several songs and moved to the beat. He applauded after songs with a smile on his face.
[2016-10-02] MEDS: WARFARIN 2 MG TABLET. PO SCH (15:48)
[2016-10-02] MEDS: WARFARIN 2.5 MG TABLET. PO SCH (15:48)
[2016-10-02 16:04] VITALS: BP 126/76
[2016-10-02] MEDS: MIRTAZAPINE 15 MG TABLET PO SCH (19:30)
[2016-10-02] MEDS: traZODone 50 MG TABLET. PO PRN (19:33)
--- NOTE | 2016-10-02 21:17 | PDOC ---
Exam Blake Demential Exam: Blake Note: Please also refer to the separate dictated note~for this date of service dictated separately.~Patient seen individually. Discussed the patient with Nursing staff reviewed the chart.~Reviewed interim history and current functioning. Reviewed vital signs,~Labs/ Radiology~and current medications noted below. Continue current treatment with the changes noted in the dictated addendum note Assessment: Vital Signs: Vital Signs Date Time Temp Pulse Resp B/P (MAP) Pulse Ox O2 Delivery O2 Flow Rate FiO2 10/02/16 16:04 97.9 91 20 126/76 (93) 95 09/30/16 16:25 Room Air I&O Intake and Output 10/02/16 07:00 Intake Total 1320 ml Balance 1320 ml Intake Oral 1320 ml Current Medications: Meds: Current Medications Acetaminophen (Tylenol) 650 mg PRN Q6HRS PRN PO PAIN / TEMP Last administered on 09/15/16 20:02; Start 09/12/16 at 19:15 Multi-Ingredient Ointment (Analgesic Mcdonald) 1 wilfredo PRN QID PRN TP MUSCLE PAIN; Start 09/12/16 at 19:15 Al Hydroxide/Mg Hydroxide (Mylanta Plus Xs) 15 ml PRN AFTMEALHC PRN PO DYSPEPSIA; Start 09/12/16 at 19:15 Magnesium Hydroxide (Milk Of Magnesia) 2,400 mg PRN QHS PRN PO CONSTIPATION; Start 09/12/16 at 19:15 Divalproex Sodium (Depakote) 250 mg BID PO Last administered on 09/20/16 08:38 ; Start 09/12/16 at 21:00; Stop 09/20/16 at 10:41; Status DC Lorazepam (Ativan) 0.5 mg PRN BID PRN PO ANXIETY / AGITATION Last administered on 09/30/16 16:39; Start 09/12/16 at 19:45 Lorazepam (Ativan) 1 mg BID PO Last administered on 09/17/16 08:49; Start 02/19 at 21:00; Stop 09/17/16 at 18:05; Status DC Selegiline HCl (Emsam) 1 patch DAILY TD ; Start 09/13/16 at 09:00; Stop at 18:35; Status DC Buspirone HCl (Buspar) 7.5 mg BID PO Last administered on 09/27/16 09:12; Start 09/12/16 at 21:00; Stop 09/27/16 at 10:31; Status DC Amiodarone HCl (Cordarone) 100 mg DAILY PO Last administered on 10/02/16 09:35 ; Start 09/13/16 at 09:00 Aspirin (Children'S Aspirin) 81 mg DAILY PO Last administered on 10/02/16 09: 36; Start 09/13/16 at 09:00 Famotidine (Pepcid) 20 mg DAILY PO Last administered on 10/02/16 09:36; Start 09/13/16 at 09:00 Lisinopril (Prinivil) 5 mg DAILY PO Last administered on 10/02/16 09:34; Start 09/13/16 at 09:00 Loperamide HCl (Imodium) 2 mg PRN Q4HRS PRN PO DIARRHEA; Start 09/12/16 at 19: 45 Tamsulosin HCl (Flomax) 0.4 mg DAILY PO Last administered on 10/02/16 09:34; Start 09/13/16 at 09:00 Warfarin Sodium (Coumadin) 2.5 mg DAILY16 PO Last administered on 09/14/16 16: 05; Start 09/13/16 at 16:00; Stop 09/15/16 at 15:03; Status DC Multivitamins/ Calcium (Thera-M Plus) 1 tab DAILY PO Last administered on 09:36; Start 09/13/16 at 09:00 Warfarin Sodium (Coumadin) 2 mg DAILY16 PO Last administered on 09/14/16 16:06 ; Start 09/13/16 at 16:00; Stop 09/15/16 at 15:02; Status DC Warfarin Sodium (Coumadin Per Pharmacy) 1 each PRN DAILY PRN MC SEE COMMENTS Last administered on 09/29/16 15:05; Start 09/13/16 at 03:15 Vitamin D (Vitamin D3) 50,000 unit WEEKLY PO Last administered on 09/28/16 09: 40; Start 09/14/16 at 09:00 Selegiline HCl (Eldepryl) 5 mg DAILY PO Last administered on 10/02/16 09:34; Start 09/14/16 at 09:00 Trazodone HCl (Desyrel) 50 mg PRN QHS PRN PO INSOMNIA, MAY REPEAT X1 Last administered on 10/02/16 19:33; Start 09/14/16 at 19:15 Nystatin (Nystop) 1 wilfredo BID TP Last administered on 10/02/16 19:32; Start at 09:00 Nystatin (Nystop) 30 wilfredo STK-MED ONCE TP Last administered on 09/14/16 21:27; Start 09/14/16 at 21:27; Stop 09/14/16 at 21:28; Status DC Warfarin Sodium (Coumadin) 3 mg 1X WARF ONCE PO Last administered on 15:48; Start 09/15/16 at 16:00; Stop 09/15/16 at 16:01; Status DC Warfarin Sodium (Coumadin) 2.5 mg 1X ONCE PO Last administered on 09/15/16 15 :47; Start 09/15/16 at 15:15; Stop 09/15/16 at 15:17; Status DC Warfarin Sodium (Coumadin) 5 mg 1X WARF ONCE PO Last administered on 18:16; Start 09/16/16 at 16:00; Stop 09/16/16 at 16:01; Status DC Warfarin Sodium (Coumadin) 2 mg 1X WARF ONCE PO Last administered on 16:02; Start 09/17/16 at 16:00; Stop 09/17/16 at 16:01; Status DC Warfarin Sodium (Coumadin) 2.5 mg 1X WARF ONCE PO Last administered on 16:03; Start 09/17/16 at 16:00; Stop 09/17/16 at 16:01; Status DC Lorazepam (Ativan) 0.5 mg TID PO Last administered on 09/20/16 20:45; Start at 21:00; Stop 09/20/16 at 21:00; Status DC Lorazepam (Ativan) 0.5 mg BID PO Last administered on 09/24/16 19:38; Start at 09:00; Stop 09/24/16 at 21:01; Status DC Lorazepam (Ativan) 0.5 mg DAILY PO Last administered on 09/27/16 09:15; Start 09/25/16 at 09:00; Stop 09/27/16 at 10:39; Status DC Warfarin Sodium (Coumadin) 2.5 mg 1X WARF ONCE PO Last administered on 14:58; Start 09/18/16 at 16:00; Stop 09/18/16 at 16:01; Status DC Warfarin Sodium (Coumadin) 2 mg 1X WARF ONCE PO Last administered on 14:59; Start 09/18/16 at 16:00; Stop 09/18/16 at 16:01; Status DC Sertraline HCl (Zoloft) 25 mg DAILY PO Last administered on 09/24/16 07:43; Start 09/19/16 at 09:00; Stop 09/24/16 at 18:00; Status DC Warfarin Sodium (Coumadin - No Dose Today) 1 each 1X WARF ONCE MC Last administered on 09/19/16 14:14; Start 09/19/16 at 16:00; Stop 09/19/16 at 16:02 ; Status DC Quetiapine Fumarate (SEROquel) 25 mg QHS PO Last administered on 10/02/16 19: 30; Start 09/20/16 at 21:00 Warfarin Sodium (Coumadin) 2.5 mg 1X WARF ONCE PO Last administered on 16:31; Start 09/20/16 at 16:00; Stop 09/20/16 at 16:01; Status DC Valproic Acid (Depakene) 250 mg BID PO Last administered on 09/25/16 09:29; Start 09/20/16 at 21:00; Stop 09/25/16 at 18:06; Status DC Warfarin Sodium (Coumadin) 2.5 mg 1X WARF ONCE PO Last administered on 16:02; Start 09/21/16 at 16:00; Stop 09/21/16 at 16:01; Status DC Warfarin Sodium (Coumadin) 1 mg 1X WARF ONCE PO Last administered on 16:02; Start 09/21/16 at 16:00; Stop 09/21/16 at 16:01; Status DC Mirtazapine (Remeron) 7.5 mg QHS PO Last administered on 09/26/16 19:21; Start 09/21/16 at 21:00; Stop 09/27/16 at 10:31; Status DC Warfarin Sodium (Coumadin) 4 mg 1X WARF ONCE PO Last administered on 16:31; Start 09/22/16 at 16:00; Stop 09/22/16 at 16:01; Status DC Warfarin Sodium (Coumadin) 4 mg 1X WARF ONCE PO Last administered on 15:42; Start 09/23/16 at 16:00; Stop 09/23/16 at 16:01; Status DC Warfarin Sodium (Coumadin) 4 mg DAILY16 PO Last administered on 09/25/16 16:00 ; Start 09/24/16 at 16:00; Stop 09/26/16 at 08:25; Status DC Sertraline HCl (Zoloft) 50 mg DAILY PO Last administered on 10/02/16 09:35; Start 09/25/16 at 09:00 Valproic Acid (Depakene) 375 mg BID PO Last administered on 10/02/16 19:31; Start 09/25/16 at 21:00 Warfarin Sodium (Coumadin) 2 mg DAILY16 PO Last administered on 10/02/16 15:48 ; Start 09/26/16 at 16:00 Warfarin Sodium (Coumadin) 2.5 mg DAILY16 PO Last administered on 10/02/16 15: 48; Start 09/26/16 at 16:00 Quetiapine Fumarate (SEROquel) 12.5 mg BID92 PO Last administered on 09/30/16 13:36; Start 09/27/16 at 09:00; Stop 09/30/16 at 22:00; Status DC Buspirone HCl (Buspar) 10 mg TID PO Last administered on 10/02/16 19:30; Start 09/27/16 at 14:00 Mirtazapine (Remeron) 15 mg QHS PO Last administered on 10/02/16 19:30; Start 09/27/16 at 21:00 Lorazepam (Ativan) 0.5 mg DAILY PO Last administered on 10/01/16 09:18; Start 09/28/16 at 09:00 Quetiapine Fumarate (SEROquel) 12.5 mg 0900,1400,1700 PO Last administered on 15:52; Start 10/01/16 at 09:00 Active Scripts Active Reported Therems-M (Multivits,Th W-Fe,Other Min) 1 Each Tablet 1 Each PO DAILY Tamsulosin Hcl 0.4 Mg Cap.er.24h 0.4 Mg PO DAILY Lisinopril 5 Mg Tablet 5 Mg PO DAILY Famotidine 20 Mg Tablet 20 Mg PO DAILY Emsam (Selegiline) 1 Each Patch.td24 1 Each TD DAILY Aspirin 81 Mg Tab.chew 81 Mg PO DAILY Amiodarone Hcl 200 Mg Tablet 100 Mg PO DAILY Depakote (Divalproex Sodium) 250 Mg Tablet.dr 250 Mg PO BID Coumadin (Warfarin Sodium) 4 Mg Tablet 4.5 Mg PO DAILY Ativan (Lorazepam) 0.5 Mg Tablet 0.5 Mg PO PRN BID PRN Imodium A-D (Loperamide HCl) 2 Mg Capsule 2 Mg PO PRN PRN MDD 12 mg Ativan (Lorazepam) 1 Mg Tablet 1 Mg PO BID Buspirone Hcl 7.5 Mg Tablet 7.5 Mg PO BID LINDSAY BROWN MD October 02, 2016 21:17
--- NOTE | 2016-10-02 23:17 | NUR ---
Behavior Intervention Response and Plan: BIRP Note: Behavior: Assumed Care of patient, patient located in Patient Room at shift change. Patient exhibited the following behavior Restless, Disorganized, Withdrawn. Brief assessment on rounds of vital signs, medication needs, lab studies, and pain. Treatment plan problems 1 and 2. Intervention: Patient assessed and the following interventions initiated safety checks 15 Minute Checks Cognitive Assessment , Head to toe Assessment , Medications. Response: After interactions and interventions patient responded in the following manner, Wandering , Compliant ,Cooperative. Continue to assess behaviors and condition will continue to monitor throughout the shift as needed. Plan: Continue to monitor Master Treatment Plan for patient's progress toward short term goals of Decreased Agitation, Decreased Aggression, intermediate card tender goals to return to previous living setting vs placement. Continue to assess patient for changes in above assessment. Monitor for medication needs, pain, and safety concerns. Hourly rounding performed to ensure safe environment.
--- NOTE | 2016-10-02 23:39 | PN ---
DATE: 10/01/2016 This late entry for 10/01/2016 covers elements not covered in my initial note. SUBJECTIVE: Per nursing report, the patient remains confused, looking for the exit door, redirects. REVIEW OF SYSTEMS: No CV, , pulmonary, eye, ENT system symptoms on review. He is quite pleasant, verbal, smiling as I met with him in his room, but wanting the keys for the exit. MENTAL STATUS EXAM: Insight, judgment, recent and remote memory, attention, concentration, fund of knowledge poor, consistent with his diagnosis mentioned in my initial note. PLAN: Continue current psychotropics including the increased Seroquel. Adjust further as clinically indicated. CURRENT PSYCHOTROPICS: Mentioned in my initial note. MAN Phoenix BROWN MD DR: JEREL/tavo JOB#: [id number] / [id number]
--- NOTE | 2016-10-02 23:45 | PN ---
DATE: 09/30/2016 PSYCHIATRIC PROGRESS NOTE This is a late entry of 09/30/2016, covers elements not covered in my initial note. 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 REVIEW OF SYSTEMS: No CV, , pulmonary, eye, ENT system symptoms on review. Reliability poor. MENTAL STATUS EXAM: Oriented to himself. Insight, judgment, recent and remote memory, attention, concentration, fund of knowledge poor, consistent with his diagnosis mentioned in my initial note. PLAN: Increase Seroquel to 12.5 mg t.i.d., 25 at bedtime. Maintain the rest of the psychotropics. Adjust further as clinically indicated. MAN Phoenix BROWN MD DR: JEREL/tavo JOB#: [id number] / [id number]
[2016-10-03 06:00] VITALS: BP 106/68
[2016-10-03] MEDS: ASPIRIN 81 MG TAB.CHEW PO SCH (08:52)
[2016-10-03] MEDS: MULTIVITAMIN with MINERAL TABLET. PO SCH (08:52)
[2016-10-03] MEDS: TAMSULOSIN 0.4 MG CAP.ER.24H. PO SCH (08:52)
[2016-10-03] MEDS: SELEGILINE 5 MG PO SCH (08:52)
[2016-10-03] MEDS: SERTRALINE 50 MG TABLET. PO SCH (08:52)
[2016-10-03] MEDS: QUEtiapine 25 MG TABLET. PO SCH ×3 (08:52→19:12)
[2016-10-03] MEDS: busPIRone 10 MG TABLET. PO SCH ×3 (08:53→19:12)
[2016-10-03] MEDS: LISINOPRIL 5 MG TABLET. PO SCH (08:53)
[2016-10-03] MEDS: VALPROATE ACID 250 MG/5 ML ORAL SOLUTION PO SCH ×2 (08:53→19:12)
[2016-10-03] MEDS: FAMOTIDINE 20 MG TABLET PO SCH (08:53)
[2016-10-03] MEDS: NYSTATIN TOPICAL POWDER 30GM BOTTLE. TP SCH ×2 (08:54→19:14)
[2016-10-03] MEDS: LORazepam 0.5 MG TABLET PO SCH (08:55)
[2016-10-03] MEDS: AMIODARONE HCL 200 MG TABLET PO SCH (08:55)
--- NOTE | 2016-10-03 10:15 | NUR ---
Pt started becoming visibly upset, delusional about . 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 Pt's was called to help deescalate pt and pt would not talk to . Pt brought over to [facility] for decreased stimuli/quiet environment. Pt made statements that if he has to stay here, he "might as well get a gun or knife and end it now." Pt refused CRICKET Ordonez. Pt left in hallway for 30 minutes where he calmed down on his own and then went to dayroom. Will continue to monitor. Addendum: 10/03/16 at 1338 by ADRIAN MATHEWS RN Pt was still anxious at lunch. CRICKET Ordonez given in lunch tray. Will continue to monitor.
--- NOTE | 2016-10-03 10:17 | NUR ---
Pharmacy Warfarin Dosing Note S:Pharmacy consulted to assist with anticoagulation therapy started 09/13/16 with target INR: 2 -3 O:ABBEY MATHIS is a 76 year old M with Stroke LABS: Last INR: 2.2 Last HGB: 10.8 Last HCT: 32.7 Last PLT: 141 Last dose of 4.5MG given on 10/02/16 at 1600 Previous Regimen: Coumacin 4.5MG HOME DOSE Vitamin K given: N Drug Interaction Changes: Same Interacting Drug Ongoing Drug Interactions: AMIODARONE A:INR Within desired Range. Target Range for this patient is: 2 -3 P: Warfarin dose: Give Coumadin 4.5mg po daily at 1600 Bridge Therapy: None Next INR due 10/08/16 Pharmacy anticoagulation service will continue to follow. CHAYO ACEVEDO, 10/03/16 1017
--- NOTE | 2016-10-03 11:15 | NUR ---
Behavior Intervention Response and Plan: BIRP Note: Behavior: Assumed Care of patient, patient located in Dining Room at shift change. Patient exhibited the following behavior Disorganized, Delusions, Anxious. Brief assessment on rounds of vital signs, medication needs, lab studies, and pain. Treatment plan problems 1-2. Intervention: Patient assessed and the following interventions initiated safety checks 15 Minute Checks Cognitive Assessment , Head to toe Assessment , Medications. Response: After interactions and interventions patient responded in the following manner, Delusions , Anxious ,Disorganized. Continue to assess behaviors and condition will continue to monitor throughout the shift as needed. Plan: Continue to monitor Master Treatment Plan for patient's progress toward short term goals of Decreased Anxiety, Medication Compliance, senior living goals to return to previous living setting vs placement. Continue to assess patient for changes in above assessment. Monitor for medication needs, pain, and safety concerns. Hourly rounding performed to ensure safe environment.
--- NOTE | 2016-10-03 13:15 | NUR ---
THERAPEUTIC RECREATION GROUP NOTE TITLE :Leisure Jeopardy ACTIVITY : Leisure Education/ Cognitive Stimulation GOAL : Increase leisure awareness, stimulate memory, increase problem solving DURATION : 75 Minutes RESPONSE : No participation.
--- NOTE | 2016-10-03 13:38 | NUR ---
Pt continues to be anxious and delusional. 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 Pt escorted to secure west hallway to help calm down. Pt now in hallway door checking, knocking on windows stating that he has to leave. Will continue to monitor.
[2016-10-03] MEDS: WARFARIN 2.5 MG TABLET. PO SCH (15:59)
[2016-10-03] MEDS: hydrOXYzine HCL 25 MG TABLET PO PRN (16:00)
[2016-10-03] MEDS: WARFARIN 2 MG TABLET. PO SCH (16:00)
--- NOTE | 2016-10-03 16:02 | NUR ---
Pt continues to pace in secure [facility]. Pt door checking, yelling for him to be let out. 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 Pt non compliant with medications. Will continue to monitor.
--- NOTE | 2016-10-03 16:20 | NUR ---
Pt's family here to visit. Pt continues to be delusional, but was compliant with medications with 's coaxing. PRN Atarax administered with afternoon meds. Will continue to monitor.
[2016-10-03] MEDS: MIRTAZAPINE 15 MG TABLET PO SCH (19:12)
[2016-10-03] MEDS: traZODone 50 MG TABLET. PO PRN (19:14)
--- NOTE | 2016-10-03 21:17 | PDOC ---
Exam Blake Demential Exam: Blake Note: Please also refer to the separate dictated note~for this date of service dictated separately.~Patient seen individually. Discussed the patient with Nursing staff reviewed the chart.~Reviewed interim history and current functioning. Reviewed vital signs,~Labs/ Radiology~and current medications noted below. Continue current treatment with the changes noted in the dictated addendum note Assessment: Vital Signs: Vital Signs Date Time Temp Pulse Resp B/P (MAP) Pulse Ox O2 Delivery O2 Flow Rate FiO2 10/03/16 08:55 88 106/68 10/03/16 06:00 97.2 18 94 09/30/16 16:25 Room Air I&O Intake and Output 10/03/16 07:00 Intake Total 1080 ml Balance 1080 ml Intake Oral 1080 ml Labs: Laboratory Tests Test 10/03/16 06:00 Prothrombin Time 24.6 SEC (9.4-11.4) H Prothrombin Time INR 2.4 (0.9-1.1) H Current Medications: Meds: Current Medications Acetaminophen (Tylenol) 650 mg PRN Q6HRS PRN PO PAIN / TEMP Last administered on 09/15/16 20:02; Start 09/12/16 at 19:15 Multi-Ingredient Ointment (Analgesic [place]) 1 wilfredo PRN QID PRN TP MUSCLE PAIN; Start 09/12/16 at 19:15 Al Hydroxide/Mg Hydroxide (Mylanta Plus Xs) 15 ml PRN AFTMEALHC PRN PO DYSPEPSIA; Start 09/12/16 at 19:15 Magnesium Hydroxide (Milk Of Magnesia) 2,400 mg PRN QHS PRN PO CONSTIPATION; Start 09/12/16 at 19:15 Divalproex Sodium (Depakote) 250 mg BID PO Last administered on 09/20/16 08:38 ; Start 09/12/16 at 21:00; Stop 09/20/16 at 10:41; Status DC Lorazepam (Ativan) 0.5 mg PRN BID PRN PO ANXIETY / AGITATION Last administered on 09/30/16 16:39; Start 09/12/16 at 19:45 Lorazepam (Ativan) 1 mg BID PO Last administered on 09/17/16 08:49; Start 02/19 at 21:00; Stop 09/17/16 at 18:05; Status DC Selegiline HCl (Emsam) 1 patch DAILY TD ; Start 09/13/16 at 09:00; Stop at 18:35; Status DC Buspirone HCl (Buspar) 7.5 mg BID PO Last administered on 09/27/16 09:12; Start 09/12/16 at 21:00; Stop 09/27/16 at 10:31; Status DC Amiodarone HCl (Cordarone) 100 mg DAILY PO Last administered on 10/03/16 08:55 ; Start 09/13/16 at 09:00 Aspirin (Children'S Aspirin) 81 mg DAILY PO Last administered on 10/03/16 08: 52; Start 09/13/16 at 09:00 Famotidine (Pepcid) 20 mg DAILY PO Last administered on 10/03/16 08:53; Start 09/13/16 at 09:00 Lisinopril (Prinivil) 5 mg DAILY PO Last administered on 10/02/16 09:34; Start 09/13/16 at 09:00 Loperamide HCl (Imodium) 2 mg PRN Q4HRS PRN PO DIARRHEA; Start 09/12/16 at 19: 45 Tamsulosin HCl (Flomax) 0.4 mg DAILY PO Last administered on 10/03/16 08:52; Start 09/13/16 at 09:00 Warfarin Sodium (Coumadin) 2.5 mg DAILY16 PO Last administered on 09/14/16 16: 05; Start 09/13/16 at 16:00; Stop 09/15/16 at 15:03; Status DC Multivitamins/ Calcium (Thera-M Plus) 1 tab DAILY PO Last administered on 08:52; Start 09/13/16 at 09:00 Warfarin Sodium (Coumadin) 2 mg DAILY16 PO Last administered on 09/14/16 16:06 ; Start 09/13/16 at 16:00; Stop 09/15/16 at 15:02; Status DC Warfarin Sodium (Coumadin Per Pharmacy) 1 each PRN DAILY PRN MC SEE COMMENTS Last administered on 10/03/16 10:02; Start 09/13/16 at 03:15 Vitamin D (Vitamin D3) 50,000 unit WEEKLY PO Last administered on 09/28/16 09: 40; Start 09/14/16 at 09:00 Selegiline HCl (Eldepryl) 5 mg DAILY PO Last administered on 10/03/16 08:52; Start 09/14/16 at 09:00 Trazodone HCl (Desyrel) 50 mg PRN QHS PRN PO INSOMNIA, MAY REPEAT X1 Last administered on 10/03/16 19:14; Start 09/14/16 at 19:15 Nystatin (Nystop) 1 wilfredo BID TP Last administered on 10/03/16 19:14; Start at 09:00 Nystatin (Nystop) 30 wilfredo STK-MED ONCE TP Last administered on 09/14/16 21:27; Start 09/14/16 at 21:27; Stop 09/14/16 at 21:28; Status DC Warfarin Sodium (Coumadin) 3 mg 1X WARF ONCE PO Last administered on 15:48; Start 09/15/16 at 16:00; Stop 09/15/16 at 16:01; Status DC Warfarin Sodium (Coumadin) 2.5 mg 1X ONCE PO Last administered on 09/15/16 15 :47; Start 09/15/16 at 15:15; Stop 09/15/16 at 15:17; Status DC Warfarin Sodium (Coumadin) 5 mg 1X WARF ONCE PO Last administered on 18:16; Start 09/16/16 at 16:00; Stop 09/16/16 at 16:01; Status DC Warfarin Sodium (Coumadin) 2 mg 1X WARF ONCE PO Last administered on 16:02; Start 09/17/16 at 16:00; Stop 09/17/16 at 16:01; Status DC Warfarin Sodium (Coumadin) 2.5 mg 1X WARF ONCE PO Last administered on 16:03; Start 09/17/16 at 16:00; Stop 09/17/16 at 16:01; Status DC Lorazepam (Ativan) 0.5 mg TID PO Last administered on 09/20/16 20:45; Start at 21:00; Stop 09/20/16 at 21:00; Status DC Lorazepam (Ativan) 0.5 mg BID PO Last administered on 09/24/16 19:38; Start at 09:00; Stop 09/24/16 at 21:01; Status DC Lorazepam (Ativan) 0.5 mg DAILY PO Last administered on 09/27/16 09:15; Start 09/25/16 at 09:00; Stop 09/27/16 at 10:39; Status DC Warfarin Sodium (Coumadin) 2.5 mg 1X WARF ONCE PO Last administered on 14:58; Start 09/18/16 at 16:00; Stop 09/18/16 at 16:01; Status DC Warfarin Sodium (Coumadin) 2 mg 1X WARF ONCE PO Last administered on 14:59; Start 09/18/16 at 16:00; Stop 09/18/16 at 16:01; Status DC Sertraline HCl (Zoloft) 25 mg DAILY PO Last administered on 09/24/16 07:43; Start 09/19/16 at 09:00; Stop 09/24/16 at 18:00; Status DC Warfarin Sodium (Coumadin - No Dose Today) 1 each 1X WARF ONCE MC Last administered on 09/19/16 14:14; Start 09/19/16 at 16:00; Stop 09/19/16 at 16:02 ; Status DC Quetiapine Fumarate (SEROquel) 25 mg QHS PO Last administered on 10/03/16 19: 12; Start 09/20/16 at 21:00 Warfarin Sodium (Coumadin) 2.5 mg 1X WARF ONCE PO Last administered on 16:31; Start 09/20/16 at 16:00; Stop 09/20/16 at 16:01; Status DC Valproic Acid (Depakene) 250 mg BID PO Last administered on 09/25/16 09:29; Start 09/20/16 at 21:00; Stop 09/25/16 at 18:06; Status DC Warfarin Sodium (Coumadin) 2.5 mg 1X WARF ONCE PO Last administered on 16:02; Start 09/21/16 at 16:00; Stop 09/21/16 at 16:01; Status DC Warfarin Sodium (Coumadin) 1 mg 1X WARF ONCE PO Last administered on 16:02; Start 09/21/16 at 16:00; Stop 09/21/16 at 16:01; Status DC Mirtazapine (Remeron) 7.5 mg QHS PO Last administered on 09/26/16 19:21; Start 09/21/16 at 21:00; Stop 09/27/16 at 10:31; Status DC Warfarin Sodium (Coumadin) 4 mg 1X WARF ONCE PO Last administered on 16:31; Start 09/22/16 at 16:00; Stop 09/22/16 at 16:01; Status DC Warfarin Sodium (Coumadin) 4 mg 1X WARF ONCE PO Last administered on 15:42; Start 09/23/16 at 16:00; Stop 09/23/16 at 16:01; Status DC Warfarin Sodium (Coumadin) 4 mg DAILY16 PO Last administered on 09/25/16 16:00 ; Start 09/24/16 at 16:00; Stop 09/26/16 at 08:25; Status DC Sertraline HCl (Zoloft) 50 mg DAILY PO Last administered on 10/03/16 08:52; Start 09/25/16 at 09:00; Stop 10/03/16 at 14:04; Status DC Valproic Acid (Depakene) 375 mg BID PO Last administered on 10/03/16 08:53; Start 09/25/16 at 21:00; Stop 10/03/16 at 18:33; Status DC Warfarin Sodium (Coumadin) 2 mg DAILY16 PO Last administered on 10/03/16 16:00 ; Start 09/26/16 at 16:00 Warfarin Sodium (Coumadin) 2.5 mg DAILY16 PO Last administered on 10/03/16 15: 59; Start 09/26/16 at 16:00 Quetiapine Fumarate (SEROquel) 12.5 mg BID92 PO Last administered on 09/30/16 13:36; Start 09/27/16 at 09:00; Stop 09/30/16 at 22:00; Status DC Buspirone HCl (Buspar) 10 mg TID PO Last administered on 10/03/16 19:12; Start 09/27/16 at 14:00 Mirtazapine (Remeron) 15 mg QHS PO Last administered on 10/03/16 19:12; Start 09/27/16 at 21:00 Lorazepam (Ativan) 0.5 mg DAILY PO Last administered on 10/03/16 08:55; Start 09/28/16 at 09:00 Quetiapine Fumarate (SEROquel) 12.5 mg 0900,1400,1700 PO Last administered on 08:52; Start 10/01/16 at 09:00; Stop 10/03/16 at 14:04; Status DC Olanzapine (ZyPREXA ZYDIS) 2.5 mg PRN Q2HR PRN PO PSYCHOSIS Last administered on 10/03/16 11:54; Start 10/03/16 at 10:00 Quetiapine Fumarate (SEROquel) 25 mg 0900,1400,1700 PO Last administered on 16:00; Start 10/03/16 at 17:00 Hydroxyzine HCl (Atarax) 50 mg PRN Q2HR PRN PO ANXIETY / AGITATION Last administered on 10/03/16 16:00; Start 10/03/16 at 14:15 Valproic Acid (Depakene) 500 mg BID PO Last administered on 10/03/16 19:12; Start 10/03/16 at 21:00 Active Scripts Active Reported Therems-M (Multivits, W-Fe,Other Min) 1 Each Tablet 1 Each PO DAILY Tamsulosin Hcl 0.4 Mg Cap.er.24h 0.4 Mg PO DAILY Lisinopril 5 Mg Tablet 5 Mg PO DAILY Famotidine 20 Mg Tablet 20 Mg PO DAILY Emsam (Selegiline) 1 Each Patch.td24 1 Each TD DAILY Aspirin 81 Mg Tab.chew 81 Mg PO DAILY Amiodarone Hcl 200 Mg Tablet 100 Mg PO DAILY Depakote (Divalproex Sodium) 250 Mg Tablet.dr 250 Mg PO BID Coumadin (Warfarin Sodium) 4 Mg Tablet 4.5 Mg PO DAILY Ativan (Lorazepam) 0.5 Mg Tablet 0.5 Mg PO PRN BID PRN Imodium A-D (Loperamide HCl) 2 Mg Capsule 2 Mg PO PRN PRN MDD 12 mg Ativan (Lorazepam) 1 Mg Tablet 1 Mg PO BID Buspirone Hcl 7.5 Mg Tablet 7.5 Mg PO BID LINDSAY BROWN MD October 03, 2016 21:17
--- NOTE | 2016-10-03 22:57 | NUR ---
Behavior Intervention Response and Plan: BIRP Note: Behavior: Assumed Care of patient, patient located in Day Room at shift change. Patient exhibited the following behavior Calm, Disorganized, Withdrawn. Brief assessment on rounds of vital signs, medication needs, lab studies, and pain. Treatment plan problems 1 and 2. Intervention: Patient assessed and the following interventions initiated safety checks 15 Minute Checks Cognitive Assessment , Head to toe Assessment , Medications. Response: After interactions and interventions patient responded in the following manner, Calm , Compliant ,Cooperative. Continue to assess behaviors and condition will continue to monitor throughout the shift as needed. 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 Continue to assess patient for changes in above assessment. Monitor for medication needs, pain, and safety concerns. Hourly rounding performed to ensure safe environment.
[2016-10-04 05:50] VITALS: BP 127/82
[2016-10-04] MEDS: ASPIRIN 81 MG TAB.CHEW PO SCH (09:00)
[2016-10-04] MEDS: NYSTATIN TOPICAL POWDER 30GM BOTTLE. TP SCH ×2 (09:00→19:51)
[2016-10-04] MEDS: MULTIVITAMIN with MINERAL TABLET. PO SCH (09:00)
[2016-10-04] MEDS: FAMOTIDINE 20 MG TABLET PO SCH (09:00)
--- NOTE | 2016-10-04 09:15 | PN ---
DATE: 10/02/2016 SUBJECTIVE: This is late entry 10/02/2016, covers elements not covered in my initial note. 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 REVIEW OF SYSTEMS: No CV, , pulmonary, eye, or ENT system symptoms on review. Reliability poor. MENTAL STATUS EXAM: Oriented to himself. Insight, judgment, recent and remote memory, attention, concentration, fund of knowledge poor, consistent with his diagnosis mentioned in my initial note. PLAN: The patient is quite obsessive fixed ruminative. We will start Luvox 25 mg p.o. at bedtime. On further review, there is a drug interaction with Selegiline that he is taking 5 mg a day and we are able to use the Luvox. Seroquel is 12.5 mg t.i.d. and we will increase it to 25 mg t.i.d. Make further adjustments as clinically indicated. We will also stop the Zoloft to avoid interaction with Selegiline. MAN Phoenix BROWN MD DR: JEREL/tavo JOB#: [id number] / [id number]
[2016-10-04] MEDS: LISINOPRIL 5 MG TABLET. PO SCH (10:00)
[2016-10-04] MEDS: TAMSULOSIN 0.4 MG CAP.ER.24H. PO SCH (10:01)
[2016-10-04] MEDS: busPIRone 10 MG TABLET. PO SCH ×3 (10:01→19:50)
[2016-10-04] MEDS: SELEGILINE 5 MG PO SCH (10:01)
[2016-10-04] MEDS: AMIODARONE HCL 200 MG TABLET PO SCH (10:01)
[2016-10-04] MEDS: QUEtiapine 25 MG TABLET. PO SCH (10:01)
[2016-10-04] MEDS: VALPROATE ACID 250 MG/5 ML ORAL SOLUTION PO SCH ×2 (10:02→19:51)
[2016-10-04] MEDS: LORazepam 0.5 MG TABLET PO SCH (10:03)
--- NOTE | 2016-10-04 11:32 | NUR ---
Behavior Intervention Response and Plan: BIRP Note: Behavior: Assumed Care of patient, patient located in Patient Room at shift change. Patient exhibited the following behavior Irritable, Delusions, Restless. Brief assessment on rounds of vital signs, medication needs, lab studies, and pain. Treatment plan problems . Intervention: Patient assessed and the following interventions initiated safety checks 15 Minute Checks Cognitive Assessment , Head to toe Assessment , Medications. Response: After interactions and interventions patient responded in the following manner, Calm , Compliant ,Cooperative. Continue to assess behaviors and condition will continue to monitor throughout the shift as needed. 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 Continue to assess patient for changes in above assessment. Monitor for medication needs, pain, and safety concerns. Hourly rounding performed to ensure safe environment.
--- NOTE | 2016-10-04 12:47 | NUR ---
PAULINE contacted Laura, Nurse at [facility] regarding updated target dc for mid week next week. PAULINE will follow up w/Pt's later this afternoon as she is currently driving back to [facility].
--- NOTE | 2016-10-04 15:15 | NUR ---
THERAPEUTIC RECREATION GROUP NOTE TITLE :Bead Sun Catchers ACTIVITY : Arts and Crafts GOAL : Increase socialization, fine motor skills, creativity DURATION : 90 Minutes RESPONSE : No participation.
--- NOTE | 2016-10-04 15:16 | NUR ---
Group Note [facility] Group Type BINGO Start Time: 1315 End Time: 1430 Problem: Anxiety Purpose: Increase Stimulation, Increase socialization Level of Participation: High Behaviors, or Symptoms Observed: Pt was engaged the entire game and was able to find the corresponding numbers as they were called without assistance from staff. Interventions: Directed Focus Response: Pt's played multiple rounds of BINGO and to listen to numbers called, prizes were given to the winner in each round. Plan: Group Participation Additional Comments:
[2016-10-04] MEDS: WARFARIN 2 MG TABLET. PO SCH (16:06)
[2016-10-04] MEDS: WARFARIN 2.5 MG TABLET. PO SCH (16:06)
[2016-10-04 16:21] VITALS: BP 123/84
[2016-10-04] MEDS: MIRTAZAPINE 15 MG TABLET PO SCH (19:50)
[2016-10-04] MEDS: risperiDONE 0.25 MG TABLET. PO SCH (19:52)
--- NOTE | 2016-10-04 21:19 | PDOC ---
Exam Blake Demential Exam: Blake Note: Please also refer to the separate dictated note~for this date of service dictated separately.~Patient seen individually. Discussed the patient with Nursing staff reviewed the chart.~Reviewed interim history and current functioning. Reviewed vital signs,~Labs/ Radiology~and current medications noted below. Continue current treatment with the changes noted in the dictated addendum note Assessment: Vital Signs: Vital Signs Date Time Temp Pulse Resp B/P (MAP) Pulse Ox O2 Delivery O2 Flow Rate FiO2 10/04/16 16:21 97.3 75 18 123/84 (97) 99 10/04/16 05:50 Room Air I&O Intake and Output 10/04/16 07:00 Intake Total 1440 ml Balance 1440 ml Intake Oral 1440 ml # Voids 1 Current Medications: Meds: Current Medications Acetaminophen (Tylenol) 650 mg PRN Q6HRS PRN PO PAIN / TEMP Last administered on 09/15/16 20:02; Start 09/12/16 at 19:15 Multi-Ingredient Ointment (Analgesic [place]) 1 wilfredo PRN QID PRN TP MUSCLE PAIN; Start 09/12/16 at 19:15 Al Hydroxide/Mg Hydroxide (Mylanta Plus Xs) 15 ml PRN AFTMEALHC PRN PO DYSPEPSIA; Start 09/12/16 at 19:15 Magnesium Hydroxide (Milk Of Magnesia) 2,400 mg PRN QHS PRN PO CONSTIPATION; Start 09/12/16 at 19:15 Divalproex Sodium (Depakote) 250 mg BID PO Last administered on 09/20/16 08:38 ; Start 09/12/16 at 21:00; Stop 09/20/16 at 10:41; Status DC Lorazepam (Ativan) 0.5 mg PRN BID PRN PO ANXIETY / AGITATION Last administered on 09/30/16 16:39; Start 09/12/16 at 19:45 Lorazepam (Ativan) 1 mg BID PO Last administered on 09/17/16 08:49; Start 02/19 at 21:00; Stop 09/17/16 at 18:05; Status DC Selegiline HCl (Emsam) 1 patch DAILY TD ; Start 09/13/16 at 09:00; Stop at 18:35; Status DC Buspirone HCl (Buspar) 7.5 mg BID PO Last administered on 09/27/16 09:12; Start 09/12/16 at 21:00; Stop 09/27/16 at 10:31; Status DC Amiodarone HCl (Cordarone) 100 mg DAILY PO Last administered on 10/04/16 10:01 ; Start 09/13/16 at 09:00 Aspirin (Children'S Aspirin) 81 mg DAILY PO Last administered on 10/03/16 08: 52; Start 09/13/16 at 09:00 Famotidine (Pepcid) 20 mg DAILY PO Last administered on 10/03/16 08:53; Start 09/13/16 at 09:00 Lisinopril (Prinivil) 5 mg DAILY PO Last administered on 10/04/16 10:00; Start 09/13/16 at 09:00 Loperamide HCl (Imodium) 2 mg PRN Q4HRS PRN PO DIARRHEA; Start 09/12/16 at 19: 45 Tamsulosin HCl (Flomax) 0.4 mg DAILY PO Last administered on 10/04/16 10:01; Start 09/13/16 at 09:00 Warfarin Sodium (Coumadin) 2.5 mg DAILY16 PO Last administered on 09/14/16 16: 05; Start 09/13/16 at 16:00; Stop 09/15/16 at 15:03; Status DC Multivitamins/ Calcium (Thera-M Plus) 1 tab DAILY PO Last administered on 08:52; Start 09/13/16 at 09:00 Warfarin Sodium (Coumadin) 2 mg DAILY16 PO Last administered on 09/14/16 16:06 ; Start 09/13/16 at 16:00; Stop 09/15/16 at 15:02; Status DC Warfarin Sodium (Coumadin Per Pharmacy) 1 each PRN DAILY PRN MC SEE COMMENTS Last administered on 10/03/16 10:02; Start 09/13/16 at 03:15 Vitamin D (Vitamin D3) 50,000 unit WEEKLY PO Last administered on 09/28/16 09: 40; Start 09/14/16 at 09:00 Selegiline HCl (Eldepryl) 5 mg DAILY PO Last administered on 10/04/16 10:01; Start 09/14/16 at 09:00 Trazodone HCl (Desyrel) 50 mg PRN QHS PRN PO INSOMNIA, MAY REPEAT X1 Last administered on 10/03/16 19:14; Start 09/14/16 at 19:15 Nystatin (Nystop) 1 wilfredo BID TP Last administered on 10/04/16 19:51; Start 09/15 at 09:00 Nystatin (Nystop) 30 wilfredo STK-MED ONCE TP Last administered on 09/14/16 21:27; Start 09/14/16 at 21:27; Stop 09/14/16 at 21:28; Status DC Warfarin Sodium (Coumadin) 3 mg 1X WARF ONCE PO Last administered on 15:48; Start 09/15/16 at 16:00; Stop 09/15/16 at 16:01; Status DC Warfarin Sodium (Coumadin) 2.5 mg 1X ONCE PO Last administered on 09/15/16 15 :47; Start 09/15/16 at 15:15; Stop 09/15/16 at 15:17; Status DC Warfarin Sodium (Coumadin) 5 mg 1X WARF ONCE PO Last administered on 18:16; Start 09/16/16 at 16:00; Stop 09/16/16 at 16:01; Status DC Warfarin Sodium (Coumadin) 2 mg 1X WARF ONCE PO Last administered on 16:02; Start 09/17/16 at 16:00; Stop 09/17/16 at 16:01; Status DC Warfarin Sodium (Coumadin) 2.5 mg 1X WARF ONCE PO Last administered on 16:03; Start 09/17/16 at 16:00; Stop 09/17/16 at 16:01; Status DC Lorazepam (Ativan) 0.5 mg TID PO Last administered on 09/20/16 20:45; Start at 21:00; Stop 09/20/16 at 21:00; Status DC Lorazepam (Ativan) 0.5 mg BID PO Last administered on 09/24/16 19:38; Start at 09:00; Stop 09/24/16 at 21:01; Status DC Lorazepam (Ativan) 0.5 mg DAILY PO Last administered on 09/27/16 09:15; Start 09/25/16 at 09:00; Stop 09/27/16 at 10:39; Status DC Warfarin Sodium (Coumadin) 2.5 mg 1X WARF ONCE PO Last administered on 14:58; Start 09/18/16 at 16:00; Stop 09/18/16 at 16:01; Status DC Warfarin Sodium (Coumadin) 2 mg 1X WARF ONCE PO Last administered on 14:59; Start 09/18/16 at 16:00; Stop 09/18/16 at 16:01; Status DC Sertraline HCl (Zoloft) 25 mg DAILY PO Last administered on 09/24/16 07:43; Start 09/19/16 at 09:00; Stop 09/24/16 at 18:00; Status DC Warfarin Sodium (Coumadin - No Dose Today) 1 each 1X WARF ONCE MC Last administered on 09/19/16 14:14; Start 09/19/16 at 16:00; Stop 09/19/16 at 16:02 ; Status DC Quetiapine Fumarate (SEROquel) 25 mg QHS PO Last administered on 10/03/16 19: 12; Start 09/20/16 at 21:00; Stop 10/04/16 at 10:51; Status DC Warfarin Sodium (Coumadin) 2.5 mg 1X WARF ONCE PO Last administered on 16:31; Start 09/20/16 at 16:00; Stop 09/20/16 at 16:01; Status DC Valproic Acid (Depakene) 250 mg BID PO Last administered on 09/25/16 09:29; Start 09/20/16 at 21:00; Stop 09/25/16 at 18:06; Status DC Warfarin Sodium (Coumadin) 2.5 mg 1X WARF ONCE PO Last administered on 16:02; Start 09/21/16 at 16:00; Stop 09/21/16 at 16:01; Status DC Warfarin Sodium (Coumadin) 1 mg 1X WARF ONCE PO Last administered on 16:02; Start 09/21/16 at 16:00; Stop 09/21/16 at 16:01; Status DC Mirtazapine (Remeron) 7.5 mg QHS PO Last administered on 09/26/16 19:21; Start 09/21/16 at 21:00; Stop 09/27/16 at 10:31; Status DC Warfarin Sodium (Coumadin) 4 mg 1X WARF ONCE PO Last administered on 16:31; Start 09/22/16 at 16:00; Stop 09/22/16 at 16:01; Status DC Warfarin Sodium (Coumadin) 4 mg 1X WARF ONCE PO Last administered on 15:42; Start 09/23/16 at 16:00; Stop 09/23/16 at 16:01; Status DC Warfarin Sodium (Coumadin) 4 mg DAILY16 PO Last administered on 09/25/16 16:00 ; Start 09/24/16 at 16:00; Stop 09/26/16 at 08:25; Status DC Sertraline HCl (Zoloft) 50 mg DAILY PO Last administered on 10/03/16 08:52; Start 09/25/16 at 09:00; Stop 10/03/16 at 14:04; Status DC Valproic Acid (Depakene) 375 mg BID PO Last administered on 10/03/16 08:53; Start 09/25/16 at 21:00; Stop 10/03/16 at 18:33; Status DC Warfarin Sodium (Coumadin) 2 mg DAILY16 PO Last administered on 10/04/16 16:06 ; Start 09/26/16 at 16:00 Warfarin Sodium (Coumadin) 2.5 mg DAILY16 PO Last administered on 10/04/16 16: 06; Start 09/26/16 at 16:00 Quetiapine Fumarate (SEROquel) 12.5 mg BID92 PO Last administered on 09/30/16 13:36; Start 09/27/16 at 09:00; Stop 09/30/16 at 22:00; Status DC Buspirone HCl (Buspar) 10 mg TID PO Last administered on 10/04/16 19:50; Start 09/27/16 at 14:00 Mirtazapine (Remeron) 15 mg QHS PO Last administered on 10/04/16 19:50; Start 09/27/16 at 21:00 Lorazepam (Ativan) 0.5 mg DAILY PO Last administered on 10/04/16 10:03; Start 09/28/16 at 09:00 Quetiapine Fumarate (SEROquel) 12.5 mg 0900,1400,1700 PO Last administered on 08:52; Start 10/01/16 at 09:00; Stop 10/03/16 at 14:04; Status DC Olanzapine (ZyPREXA ZYDIS) 2.5 mg PRN Q2HR PRN PO PSYCHOSIS Last administered on 10/03/16 11:54; Start 10/03/16 at 10:00 Quetiapine Fumarate (SEROquel) 25 mg 0900,1400,1700 PO Last administered on 10/04 10:01; Start 10/03/16 at 17:00; Stop 10/04/16 at 10:51; Status DC Hydroxyzine HCl (Atarax) 50 mg PRN Q2HR PRN PO ANXIETY / AGITATION Last administered on 10/03/16 16:00; Start 10/03/16 at 14:15 Valproic Acid (Depakene) 500 mg BID PO Last administered on 10/04/16 19:51; Start 10/03/16 at 21:00 Risperidone (RisperDAL) 0.25 mg BID PO Last administered on 10/04/16 19:52; Start 10/04/16 at 21:00 Active Scripts Active Reported Therems-M (Multivits, W-Fe,Other Min) 1 Each Tablet 1 Each PO DAILY Tamsulosin Hcl 0.4 Mg Cap.er.24h 0.4 Mg PO DAILY Lisinopril 5 Mg Tablet 5 Mg PO DAILY Famotidine 20 Mg Tablet 20 Mg PO DAILY Emsam (Selegiline) 1 Each Patch.td24 1 Each TD DAILY Aspirin 81 Mg Tab.chew 81 Mg PO DAILY Amiodarone Hcl 200 Mg Tablet 100 Mg PO DAILY Depakote (Divalproex Sodium) 250 Mg Tablet.dr 250 Mg PO BID Coumadin (Warfarin Sodium) 4 Mg Tablet 4.5 Mg PO DAILY Ativan (Lorazepam) 0.5 Mg Tablet 0.5 Mg PO PRN BID PRN Imodium A-D (Loperamide HCl) 2 Mg Capsule 2 Mg PO PRN PRN MDD 12 mg Ativan (Lorazepam) 1 Mg Tablet 1 Mg PO BID Buspirone Hcl 7.5 Mg Tablet 7.5 Mg PO BID Diagnosis: Problems: (1) Dementia (2) Anxiety disorder (3) Impulse control disorder (4) Dementia, vascular, with depression (5) Dementia, vascular, with delusions (6) Dementia in Alzheimer's disease with depression (7) Dementia in Alzheimer's disease with delusions LINDSAY BROWN MD Oct 04, 2016 21:19
--- NOTE | 2016-10-04 22:21 | NUR ---
Behavior Intervention Response and Plan: BIRP Note: Behavior: Assumed Care of patient, patient located in Day Room at shift change. Patient exhibited the following behavior Calm, Disorganized, Cooperative. Brief assessment on rounds of vital signs, medication needs, lab studies, and pain. Treatment plan problems 1 and 2. Intervention: Patient assessed and the following interventions initiated safety checks 15 Minute Checks Cognitive Assessment , Head to toe Assessment , Medications. Response: After interactions and interventions patient responded in the following manner, Calm , Compliant ,Cooperative. Continue to assess behaviors and condition will continue to monitor throughout the shift as needed. 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 Continue to assess patient for changes in above assessment. Monitor for medication needs, pain, and safety concerns. Hourly rounding performed to ensure safe environment.
[2016-10-05 06:25] VITALS: BP 136/95
[2016-10-05] MEDS: busPIRone 10 MG TABLET. PO SCH ×5 (08:52→19:17)
[2016-10-05] MEDS: ASPIRIN 81 MG TAB.CHEW PO SCH (08:52)
[2016-10-05] MEDS: risperiDONE 0.25 MG TABLET. PO SCH ×2 (08:52→19:17)
[2016-10-05] MEDS: LORazepam 0.5 MG TABLET PO SCH (08:52)
[2016-10-05] MEDS: SELEGILINE 5 MG PO SCH (08:52)
[2016-10-05] MEDS: TAMSULOSIN 0.4 MG CAP.ER.24H. PO SCH (08:52)
[2016-10-05] MEDS: FAMOTIDINE 20 MG TABLET PO SCH (08:53)
[2016-10-05] MEDS: AMIODARONE HCL 200 MG TABLET PO SCH (08:53)
[2016-10-05] MEDS: LISINOPRIL 5 MG TABLET. PO SCH (08:53)
[2016-10-05] MEDS: VALPROATE ACID 250 MG/5 ML ORAL SOLUTION PO SCH ×2 (08:54→19:17)
[2016-10-05] MEDS: MULTIVITAMIN with MINERAL TABLET. PO SCH (08:54)
[2016-10-05] MEDS: NYSTATIN TOPICAL POWDER 30GM BOTTLE. TP SCH ×2 (08:57→19:18)
[2016-10-05] MEDS: CHOLECALCIFEROL (VITAMIN D3) 50,000 UNIT CAPSULE PO SCH (08:57)
--- NOTE | 2016-10-05 10:51 | NUR ---
Behavior Intervention Response and Plan: BIRP Note: Behavior: Assumed Care of patient, patient located in Hallway at shift change. Patient exhibited the following behavior Restless, Wandering, Disorganized. Brief assessment on rounds of vital signs, medication needs, lab studies, and pain. Treatment plan problems 1 and 2. Intervention: Patient assessed and the following interventions initiated safety checks 15 Minute Checks Cognitive Assessment , Head to toe Assessment , Medications. Response: After interactions and interventions patient responded in the following manner, Calm , Wandering ,Disorganized. Continue to assess behaviors and condition will continue to monitor throughout the shift as needed. 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 Continue to assess patient for changes in above assessment. Monitor for medication needs, pain, and safety concerns. Hourly rounding performed to ensure safe environment.
--- NOTE | 2016-10-05 10:52 | NUR ---
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 Wandering hallway, pleasantly confused.
--- NOTE | 2016-10-05 12:47 | NUR ---
patient refusing to eat or drink at breakfast and lunch. Pt delusional stating that "the slaves are dying, where are we burying them?". When asked what he was referring to he stated that the old people here are slaves, he thought it was illegal in the states. Attempted to administer PRN atarax, he refused. Will continue to monitor.
[2016-10-05] MEDS: hydrOXYzine HCL 25 MG TABLET PO PRN ×3 (12:55→14:30)
--- NOTE | 2016-10-05 13:42 | NUR ---
Group Note [facility] Group Type Coffee and Donuts Start Time: 10:15 End Time: 10:45 Problem: Anxiety Purpose: Increase Stimulation, Increase socialization, Level of Participation: High Interventions: Reminiscence Response: Pts had donuts and coffee in the day room, as it is national donut day. Staff engaged pts on their favorite type of donut, did they have a favorite coffee shop. Plan: Group Participation Additional Comments:
--- NOTE | 2016-10-05 14:30 | NUR ---
CRICKET atarax given for anxiety/agitation. Given crushed and hidden in a donut. Addendum: 10/05/16 at 1526 by TODD MOCK RN patient continues to be delusional, looking for farm, door checking. Atarax not effective at this time.
[2016-10-05] MEDS: WARFARIN 2.5 MG TABLET. PO SCH (15:28)
[2016-10-05] MEDS: WARFARIN 2 MG TABLET. PO SCH (15:28)
--- NOTE | 2016-10-05 15:45 | NUR ---
THERAPEUTIC RECREATION GROUP NOTE TITLE :Coloring ACTIVITY : [employer] GOAL : Reduce stress, anxiety. Increase creativity and fine motor functioning DURATION : 45 Minutes RESPONSE : No participation.
[2016-10-05 16:03] VITALS: BP 110/78
[2016-10-05] MEDS: MIRTAZAPINE 15 MG TABLET PO SCH (19:17)
--- NOTE | 2016-10-05 20:49 | PDOC ---
Exam Blake Demential Exam: Blake Note: Please also refer to the separate dictated note~for this date of service dictated separately.~Patient seen individually. Discussed the patient with Nursing staff reviewed the chart.~Reviewed interim history and current functioning. Reviewed vital signs,~Labs/ Radiology~and current medications noted below. Continue current treatment with the changes noted in the dictated addendum note Assessment: Vital Signs: Vital Signs Date Time Temp Pulse Resp B/P (MAP) Pulse Ox O2 Delivery O2 Flow Rate FiO2 10/05/16 16:03 98.1 118 20 110/78 (89) 99 10/04/16 05:50 Room Air I&O Intake and Output 10/05/16 07:00 Intake Total 540 ml Balance 540 ml Intake Oral 540 ml # Voids 2 Current Medications: Meds: Current Medications Acetaminophen (Tylenol) 650 mg PRN Q6HRS PRN PO PAIN / TEMP Last administered on 09/15/16 20:02; Start 09/12/16 at 19:15 Multi-Ingredient Ointment (Analgesic [place]) 1 wilfredo PRN QID PRN TP MUSCLE PAIN; Start 09/12/16 at 19:15 Al Hydroxide/Mg Hydroxide (Mylanta Plus Xs) 15 ml PRN AFTMEALHC PRN PO DYSPEPSIA; Start 09/12/16 at 19:15 Magnesium Hydroxide (Milk Of Magnesia) 2,400 mg PRN QHS PRN PO CONSTIPATION; Start 09/12/16 at 19:15 Divalproex Sodium (Depakote) 250 mg BID PO Last administered on 09/20/16 08:38 ; Start 09/12/16 at 21:00; Stop 09/20/16 at 10:41; Status DC Lorazepam (Ativan) 0.5 mg PRN BID PRN PO ANXIETY / AGITATION Last administered on 09/30/16 16:39; Start 09/12/16 at 19:45 Lorazepam (Ativan) 1 mg BID PO Last administered on 09/17/16 08:49; Start 02/19 at 21:00; Stop 09/17/16 at 18:05; Status DC Selegiline HCl (Emsam) 1 patch DAILY TD ; Start 09/13/16 at 09:00; Stop at 18:35; Status DC Buspirone HCl (Buspar) 7.5 mg BID PO Last administered on 09/27/16 09:12; Start 09/12/16 at 21:00; Stop 09/27/16 at 10:31; Status DC Amiodarone HCl (Cordarone) 100 mg DAILY PO Last administered on 10/05/16 08:53 ; Start 09/13/16 at 09:00 Aspirin (Children'S Aspirin) 81 mg DAILY PO Last administered on 10/05/16 08:52 ; Start 09/13/16 at 09:00 Famotidine (Pepcid) 20 mg DAILY PO Last administered on 10/05/16 08:53; Start 09/13/16 at 09:00 Lisinopril (Prinivil) 5 mg DAILY PO Last administered on 10/05/16 08:53; Start 09/13/16 at 09:00 Loperamide HCl (Imodium) 2 mg PRN Q4HRS PRN PO DIARRHEA; Start 09/12/16 at 19: 45 Tamsulosin HCl (Flomax) 0.4 mg DAILY PO Last administered on 10/05/16 08:52; Start 09/13/16 at 09:00 Warfarin Sodium (Coumadin) 2.5 mg DAILY16 PO Last administered on 09/14/16 16: 05; Start 09/13/16 at 16:00; Stop 09/15/16 at 15:03; Status DC Multivitamins/ Calcium (Thera-M Plus) 1 tab DAILY PO Last administered on 08:54; Start 09/13/16 at 09:00 Warfarin Sodium (Coumadin) 2 mg DAILY16 PO Last administered on 09/14/16 16:06 ; Start 09/13/16 at 16:00; Stop 09/15/16 at 15:02; Status DC Warfarin Sodium (Coumadin Per Pharmacy) 1 each PRN DAILY PRN MC SEE COMMENTS Last administered on 10/03/16 10:02; Start 09/13/16 at 03:15 Vitamin D (Vitamin D3) 50,000 unit WEEKLY PO Last administered on 10/05/16 08: 57; Start 09/14/16 at 09:00 Selegiline HCl (Eldepryl) 5 mg DAILY PO Last administered on 10/05/16 08:52; Start 09/14/16 at 09:00 Trazodone HCl (Desyrel) 50 mg PRN QHS PRN PO INSOMNIA, MAY REPEAT X1 Last administered on 10/03/16 19:14; Start 09/14/16 at 19:15 Nystatin (Nystop) 1 wilfredo BID TP Last administered on 10/05/16 19:18; Start 09/15 at 09:00 Nystatin (Nystop) 30 wilfredo STK-MED ONCE TP Last administered on 09/14/16 21:27; Start 09/14/16 at 21:27; Stop 09/14/16 at 21:28; Status DC Warfarin Sodium (Coumadin) 3 mg 1X WARF ONCE PO Last administered on 15:48; Start 09/15/16 at 16:00; Stop 09/15/16 at 16:01; Status DC Warfarin Sodium (Coumadin) 2.5 mg 1X ONCE PO Last administered on 09/15/16 15 :47; Start 09/15/16 at 15:15; Stop 09/15/16 at 15:17; Status DC Warfarin Sodium (Coumadin) 5 mg 1X WARF ONCE PO Last administered on 18:16; Start 09/16/16 at 16:00; Stop 09/16/16 at 16:01; Status DC Warfarin Sodium (Coumadin) 2 mg 1X WARF ONCE PO Last administered on 16:02; Start 09/17/16 at 16:00; Stop 09/17/16 at 16:01; Status DC Warfarin Sodium (Coumadin) 2.5 mg 1X WARF ONCE PO Last administered on 16:03; Start 09/17/16 at 16:00; Stop 09/17/16 at 16:01; Status DC Lorazepam (Ativan) 0.5 mg TID PO Last administered on 09/20/16 20:45; Start at 21:00; Stop 09/20/16 at 21:00; Status DC Lorazepam (Ativan) 0.5 mg BID PO Last administered on 09/24/16 19:38; Start at 09:00; Stop 09/24/16 at 21:01; Status DC Lorazepam (Ativan) 0.5 mg DAILY PO Last administered on 09/27/16 09:15; Start 09/25/16 at 09:00; Stop 09/27/16 at 10:39; Status DC Warfarin Sodium (Coumadin) 2.5 mg 1X WARF ONCE PO Last administered on 14:58; Start 09/18/16 at 16:00; Stop 09/18/16 at 16:01; Status DC Warfarin Sodium (Coumadin) 2 mg 1X WARF ONCE PO Last administered on 14:59; Start 09/18/16 at 16:00; Stop 09/18/16 at 16:01; Status DC Sertraline HCl (Zoloft) 25 mg DAILY PO Last administered on 09/24/16 07:43; Start 09/19/16 at 09:00; Stop 09/24/16 at 18:00; Status DC Warfarin Sodium (Coumadin - No Dose Today) 1 each 1X WARF ONCE MC Last administered on 09/19/16 14:14; Start 09/19/16 at 16:00; Stop 09/19/16 at 16:02 ; Status DC Quetiapine Fumarate (SEROquel) 25 mg QHS PO Last administered on 10/03/16 19: 12; Start 09/20/16 at 21:00; Stop 10/04/16 at 10:51; Status DC Warfarin Sodium (Coumadin) 2.5 mg 1X WARF ONCE PO Last administered on 16:31; Start 09/20/16 at 16:00; Stop 09/20/16 at 16:01; Status DC Valproic Acid (Depakene) 250 mg BID PO Last administered on 09/25/16 09:29; Start 09/20/16 at 21:00; Stop 09/25/16 at 18:06; Status DC Warfarin Sodium (Coumadin) 2.5 mg 1X WARF ONCE PO Last administered on 16:02; Start 09/21/16 at 16:00; Stop 09/21/16 at 16:01; Status DC Warfarin Sodium (Coumadin) 1 mg 1X WARF ONCE PO Last administered on 16:02; Start 09/21/16 at 16:00; Stop 09/21/16 at 16:01; Status DC Mirtazapine (Remeron) 7.5 mg QHS PO Last administered on 09/26/16 19:21; Start 09/21/16 at 21:00; Stop 09/27/16 at 10:31; Status DC Warfarin Sodium (Coumadin) 4 mg 1X WARF ONCE PO Last administered on 16:31; Start 09/22/16 at 16:00; Stop 09/22/16 at 16:01; Status DC Warfarin Sodium (Coumadin) 4 mg 1X WARF ONCE PO Last administered on 15:42; Start 09/23/16 at 16:00; Stop 09/23/16 at 16:01; Status DC Warfarin Sodium (Coumadin) 4 mg DAILY16 PO Last administered on 09/25/16 16:00 ; Start 09/24/16 at 16:00; Stop 09/26/16 at 08:25; Status DC Sertraline HCl (Zoloft) 50 mg DAILY PO Last administered on 10/03/16 08:52; Start 09/25/16 at 09:00; Stop 10/03/16 at 14:04; Status DC Valproic Acid (Depakene) 375 mg BID PO Last administered on 10/03/16 08:53; Start 09/25/16 at 21:00; Stop 10/03/16 at 18:33; Status DC Warfarin Sodium (Coumadin) 2 mg DAILY16 PO Last administered on 10/05/16 15:28 ; Start 09/26/16 at 16:00 Warfarin Sodium (Coumadin) 2.5 mg DAILY16 PO Last administered on 10/05/16 15: 28; Start 09/26/16 at 16:00 Quetiapine Fumarate (SEROquel) 12.5 mg BID92 PO Last administered on 09/30/16 13:36; Start 09/27/16 at 09:00; Stop 09/30/16 at 22:00; Status DC Buspirone HCl (Buspar) 10 mg TID PO Last administered on 10/05/16 19:17; Start 09/27/16 at 14:00 Mirtazapine (Remeron) 15 mg QHS PO Last administered on 10/05/16 19:17; Start 09/27/16 at 21:00 Lorazepam (Ativan) 0.5 mg DAILY PO Last administered on 10/05/16 08:52; Start 09/28/16 at 09:00 Quetiapine Fumarate (SEROquel) 12.5 mg 0900,1400,1700 PO Last administered on 08:52; Start 10/01/16 at 09:00; Stop 10/03/16 at 14:04; Status DC Olanzapine (ZyPREXA ZYDIS) 2.5 mg PRN Q2HR PRN PO PSYCHOSIS Last administered on 10/03/16 11:54; Start 10/03/16 at 10:00 Quetiapine Fumarate (SEROquel) 25 mg 0900,1400,1700 PO Last administered on 10/04 10:01; Start 10/03/16 at 17:00; Stop 10/04/16 at 10:51; Status DC Hydroxyzine HCl (Atarax) 50 mg PRN Q2HR PRN PO ANXIETY / AGITATION Last administered on 10/05/16 14:30; Start 10/03/16 at 14:15 Valproic Acid (Depakene) 500 mg BID PO Last administered on 10/05/16 19:17; Start 10/03/16 at 21:00 Risperidone (RisperDAL) 0.25 mg BID PO Last administered on 10/05/16 19:17; Start 10/04/16 at 21:00 Active Scripts Active Reported Therems-M (Multivits, W-Fe,Other Min) 1 Each Tablet 1 Each PO DAILY Tamsulosin Hcl 0.4 Mg Cap.er.24h 0.4 Mg PO DAILY Lisinopril 5 Mg Tablet 5 Mg PO DAILY Famotidine 20 Mg Tablet 20 Mg PO DAILY Emsam (Selegiline) 1 Each Patch.td24 1 Each TD DAILY Aspirin 81 Mg Tab.chew 81 Mg PO DAILY Amiodarone Hcl 200 Mg Tablet 100 Mg PO DAILY Depakote (Divalproex Sodium) 250 Mg Tablet.dr 250 Mg PO BID Coumadin (Warfarin Sodium) 4 Mg Tablet 4.5 Mg PO DAILY Ativan (Lorazepam) 0.5 Mg Tablet 0.5 Mg PO PRN BID PRN Imodium A-D (Loperamide HCl) 2 Mg Capsule 2 Mg PO PRN PRN MDD 12 mg Ativan (Lorazepam) 1 Mg Tablet 1 Mg PO BID Buspirone Hcl 7.5 Mg Tablet 7.5 Mg PO BID Diagnosis: Problems: (1) Dementia (2) Anxiety disorder (3) Impulse control disorder (4) Dementia, vascular, with depression (5) Dementia, vascular, with delusions (6) Dementia in Alzheimer's disease with depression (7) Dementia in Alzheimer's disease with delusions LINDSAY BROWN MD Oct 05, 2016 20:49
--- NOTE | 2016-10-06 01:22 | NUR ---
Behavior Intervention Response and Plan: BIRP Note: Behavior: Assumed Care of patient, patient located in Day Room at shift change. Patient exhibited the following behavior Calm, Compliant, Cooperative. Brief assessment on rounds of vital signs, medication needs, lab studies, and pain. Treatment plan problems Danger to Others and Fall Risk. Intervention: Patient assessed and the following interventions initiated safety checks 15 Minute Checks Cognitive Assessment , Head to toe Assessment , Medications. Response: After interactions and interventions patient responded in the following manner, Wandering , Calm ,Compliant. Continue to assess behaviors and condition will continue to monitor throughout the shift as needed. 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 Continue to assess patient for changes in above assessment. Monitor for medication needs, pain, and safety concerns. Hourly rounding performed to ensure safe environment.
--- NOTE | 2016-10-06 03:21 | PN ---
DATE: 10/03/2016 This is a late entry 10/03/2016 and covers the elements not covered in my initial note. SUBJECTIVE: The patient was quite delusional, previous evening believed that his was cheating on him, wanted to get a gun and/or knife to end his misery and then stated that people had been shooting at him all day, got some Atarax to help with anxiety, Zyprexa had no effect, intermittently noncompliant with medications. REVIEW OF SYSTEMS: No CV, , pulmonary, eye, ENT system symptoms on review. Reliability poor. MENTAL STATUS EXAM: Oriented to himself. Insight, judgment, recent and remote memory, attention, concentration, fund of knowledge poor, consistent with his diagnosis mentioned in my initial note. PLAN: Depakene is 375 b.i.d., level was low at 42. We will increase it to 500 b.i.d. Check labs level in 3 days. Maintain the rest of the psychotropics mentioned in my initial note. MAN Phoenix BROWN MD DR: JEREL/tavo JOB#: [id number] / [id number]
--- NOTE | 2016-10-06 03:25 | PN ---
DATE: 10/04/2016 This is a late entry for 10/04/2016 and covers the elements not covered in my initial note. SUBJECTIVE: The patient was staffed at a treatment team meeting with the entire team the morning of 10/04/2016, seen individually evening of 10/04/2016. He has been delusional, paranoid in the morning, talking about bursting open the window to escape, felt his breakfast was poisoned. His visited around 9:30 in the morning, refused his breakfast, felt people are doing medical experiments on him, had to be in a separate hallway from the others to reduce stimulation and agitation. REVIEW OF SYSTEMS: No CV, , pulmonary, eye, ENT system symptoms on review. Reliability poor. MENTAL STATUS EXAM: Oriented to himself. Insight, judgment, recent and remote memory, attention, concentration, fund of knowledge poor, consistent with his diagnosis mentioned in my initial note. PLAN: Valproic acid level is 42. Depakote was increased, repeat labs are awaited, increase further after the labs as clinically indicated. For now, we will change the Seroquel 25 t.i.d. and 25 at bedtime to Risperdal 0.25 mg twice a day given his significant delusions, paranoia. Maintain the Rest unchanged. Adjust further as clinically indicated. MAN Phoenix BROWN MD DR: JEREL/tavo JOB#: [id number] / [id number]
[2016-10-06 06:11] VITALS: BP 126/65
[2016-10-06 06:44] LABS: BASO % 1 % (0-3); EOS # 0.2 x10^3/uL (0.0-0.7); EOS % 4 % (0-3); HEMATOCRIT 34.5 % (39.0-53.0); HEMOGLOBIN 11.5 g/dL (13.0-17.5); LYMPH # 1.3 x10^3/uL (1.0-4.8); LYMPH % 26 % (24-48); MEAN CORPUSCULAR HEMOGLOBIN 29 pg (25-35); MEAN CORPUSCULAR HGB CONC 33 g/dL (31-37); MEAN CORPUSCULAR VOLUME 87 fL (79-100); MONO # 0.6 x10^3/uL (0.0-1.1); MONO % 12 % (0-9); NEUT % 58 % (31-73); PLATELET COUNT 143 x10^3/uL (140-400); RED BLOOD COUNT 3.96 x10^6/uL (4.30-5.70); WHITE BLOOD COUNT 5.2 x10^3/uL (4.0-11.0)
[2016-10-06 07:01] LABS: ALBUMIN 3.5 g/dL (3.4-5.0); ALK PHOS 52 U/L (46-116); ALT (SGPT) 21 U/L (16-63); ANION GAP 9 (6-14); AST (SGOT) 29 U/L (15-37); BLOOD UREA NITROGEN 28 mg/dL (8-26); BUN/CREATININE RATIO 20 (6-20); CALCIUM 8.8 mg/dL (8.5-10.1); CARBON DIOXIDE 27 mmol/L (21-32); CHLORIDE 109 mmol/L (98-107); CREATININE 1.4 mg/dL (0.7-1.3); GFR 49.5; GLUCOSE 87 mg/dL (70-99); SODIUM 145 mmol/L (136-145); TOTAL BILIRUBIN 0.7 mg/dL (0.2-1.0)
[2016-10-06 07:02] LABS: VAL ACID 60 mcg/mL (50-100)
[2016-10-06] MEDS: VALPROATE ACID 250 MG/5 ML ORAL SOLUTION PO SCH ×3 (09:18→19:19)
[2016-10-06] MEDS: MULTIVITAMIN with MINERAL TABLET. PO SCH ×2 (09:18→11:36)
[2016-10-06] MEDS: TAMSULOSIN 0.4 MG CAP.ER.24H. PO SCH ×2 (09:19→11:35)
[2016-10-06] MEDS: FAMOTIDINE 20 MG TABLET PO SCH ×2 (09:19→11:35)
[2016-10-06] MEDS: LISINOPRIL 5 MG TABLET. PO SCH ×3 (09:19→11:49)
[2016-10-06] MEDS: risperiDONE 0.25 MG TABLET. PO SCH ×4 (09:19→19:18)
[2016-10-06] MEDS: busPIRone 10 MG TABLET. PO SCH ×4 (09:20→19:18)
[2016-10-06] MEDS: LORazepam 0.5 MG TABLET PO SCH ×3 (09:20→11:48)
[2016-10-06] MEDS: AMIODARONE HCL 200 MG TABLET PO SCH ×3 (09:20→11:50)
[2016-10-06] MEDS: SELEGILINE 5 MG PO SCH ×2 (09:20→11:35)
[2016-10-06] MEDS: NYSTATIN TOPICAL POWDER 30GM BOTTLE. TP SCH ×3 (09:20→19:55)
[2016-10-06] MEDS: ASPIRIN 81 MG TAB.CHEW PO SCH ×2 (09:20→11:34)
--- NOTE | 2016-10-06 09:57 | NUR ---
patient refused meds whole, refused meds crushed in pudding. Will attempt at lunch. Addendum: 10/06/16 at 1154 by TODD MOCK RN patient knocked over meds crushed in pudding. Threw mixture away.
--- NOTE | 2016-10-06 10:01 | NUR ---
Behavior Intervention Response and Plan: BIRP Note: Behavior: Assumed Care of patient, patient located in Hallway at shift change. Patient exhibited the following behavior Restless, Wandering, Non Compliant. Brief assessment on rounds of vital signs, medication needs, lab studies, and pain. Treatment plan problems 1 and 2. Intervention: Patient assessed and the following interventions initiated safety checks 15 Minute Checks Cognitive Assessment , Head to toe Assessment , Medications. Response: After interactions and interventions patient responded in the following manner, Disorganized , Delusions ,Exit Seeking. Continue to assess behaviors and condition will continue to monitor throughout the shift as needed. Plan: Continue to monitor Master Treatment Plan for patient's progress toward short term goals of Decreased Agitation, Decreased Aggression, terminal worker goals to return to previous living setting vs placement. Continue to assess patient for changes in above assessment. Monitor for medication needs, pain, and safety concerns. Hourly rounding performed to ensure safe environment.
--- NOTE | 2016-10-06 11:25 | NUR ---
Patient chased aide down the choe because he stated that she had stolen a box of coins from his room. Disorganized and confused, stating that he is in college.
[2016-10-06] MEDS: hydrOXYzine HCL 25 MG TABLET PO PRN (11:50)
--- NOTE | 2016-10-06 11:51 | NUR ---
Patient pacing and very agitated, accusing staff of stealing his clothes and money. Isolated to [facility] for safety. Re-pulled ativan, risperdal, lisinopril and amiodarone gave in ice cream, also gave PRN hydroxizine for anxiety/agitation. Will continue to monitor.
[2016-10-06 15:58] VITALS: BP 103/75
[2016-10-06] MEDS: WARFARIN 2 MG TABLET. PO SCH (16:20)
[2016-10-06] MEDS: WARFARIN 2.5 MG TABLET. PO SCH (16:20)
[2016-10-06] MEDS: MIRTAZAPINE 15 MG TABLET PO SCH (19:18)
[2016-10-06] MEDS: traZODone 50 MG TABLET. PO PRN (19:20)
--- NOTE | 2016-10-06 21:22 | NUR ---
Behavior Intervention Response and Plan: BIRP Note: Behavior: Assumed Care of patient, patient located in Day Room at shift change. Patient exhibited the following behavior Calm, Disorganized, Able to Focus on Task. Brief assessment on rounds of vital signs, medication needs, lab studies, and pain. Treatment plan problems:1-2 Intervention: Patient assessed and the following interventions initiated safety checks 15 Minute Checks Cognitive Assessment , Head to toe Assessment , Medications. Response: After interactions and interventions patient responded in the following manner, Delusions , Disorganized ,Compliant. Continue to assess behaviors and condition will continue to monitor throughout the shift as needed. Plan: Continue to monitor Master Treatment Plan for patient's progress toward short term goals of Decreased Agitation, Improved Mood, intermediate goals to return to previous living setting vs placement. Continue to assess patient for changes in above assessment. Monitor for medication needs, pain, and safety concerns. Hourly rounding performed to ensure safe environment.
--- NOTE | 2016-10-06 22:07 | PDOC ---
Exam Blake Demential Exam: Blake Note: Please also refer to the separate dictated note~for this date of service dictated separately.~Patient seen individually. Discussed the patient with Nursing staff reviewed the chart.~Reviewed interim history and current functioning. Reviewed vital signs,~Labs/ Radiology~and current medications noted below. Continue current treatment with the changes noted in the dictated addendum note Assessment: Vital Signs: Vital Signs Date Time Temp Pulse Resp B/P (MAP) Pulse Ox O2 Delivery O2 Flow Rate FiO2 10/06/16 15:58 98.3 103 20 103/75 (84) 97 10/06/16 06:11 0.0 10/04/16 05:50 Room Air I&O Intake and Output 10/06/16 07:00 Intake Total 240 ml Balance 240 ml Intake Oral 240 ml Labs: Laboratory Tests Test 10/06/16 06:25 White Blood Count 5.2 x10^3/uL (4.0-11.0) Red Blood Count 3.96 x10^6/uL (4.30-5.70) L Hemoglobin 11.5 g/dL (13.0-17.5) L Hematocrit 34.5 % (39.0-53.0) L Mean Corpuscular Volume 87 fL (79-100) Mean Corpuscular Hemoglobin 29 pg (25-35) Mean Corpuscular Hemoglobin Concent 33 g/dL (31-37) Red Cell Distribution Width 15.0 % (11.5-14.5) H Platelet Count 143 x10^3/uL (140-400) Neutrophils (%) (Auto) 58 % (31-73) Lymphocytes (%) (Auto) 26 % (24-48) Monocytes (%) (Auto) 12 % (0-9) H Eosinophils (%) (Auto) 4 % (0-3) H Basophils (%) (Auto) 1 % (0-3) Neutrophils # (Auto) 3.0 x10^3uL (1.8-7.7) Lymphocytes # (Auto) 1.3 x10^3/uL (1.0-4.8) Monocytes # (Auto) 0.6 x10^3/uL (0.0-1.1) Eosinophils # (Auto) 0.2 x10^3/uL (0.0-0.7) Basophils # (Auto) 0.0 x10^3/uL (0.0-0.2) Sodium Level 145 mmol/L (136-145) Potassium Level 4.0 mmol/L (3.5-5.1) Chloride Level 109 mmol/L (98-107) H Carbon Dioxide Level 27 mmol/L (21-32) Anion Gap 9 (6-14) Blood Urea Nitrogen 28 mg/dL (8-26) H Creatinine 1.4 mg/dL (0.7-1.3) H Estimated GFR (Cockcroft-Gault) 49.5 BUN/Creatinine Ratio 20 (6-20) Glucose Level 87 mg/dL (70-99) Calcium Level 8.8 mg/dL (8.5-10.1) Magnesium Level 2.1 mg/dL (1.8-2.4) Total Bilirubin 0.7 mg/dL (0.2-1.0) Aspartate Amino Transferase (AST) 29 U/L (15-37) Alanine Aminotransferase (ALT) 21 U/L (16-63) Alkaline Phosphatase 52 U/L (46-116) Total Protein 7.0 g/dL (6.4-8.2) Albumin 3.5 g/dL (3.4-5.0) Albumin/Globulin Ratio 1.0 (1.0-1.7) Valproic Acid Level 60 mcg/mL (50-100) Valproic Acid Last Dose Date 10/05/16 Valproic Acid Last Dose Time 2100 Current Medications: Meds: Current Medications Acetaminophen (Tylenol) 650 mg PRN Q6HRS PRN PO PAIN / TEMP Last administered on 09/15/16 20:02; Start 09/12/16 at 19:15 Multi-Ingredient Ointment (Analgesic [place]) 1 wilfredo PRN QID PRN TP MUSCLE PAIN; Start 09/12/16 at 19:15 Al Hydroxide/Mg Hydroxide (Mylanta Plus Xs) 15 ml PRN AFTMEALHC PRN PO DYSPEPSIA; Start 09/12/16 at 19:15 Magnesium Hydroxide (Milk Of Magnesia) 2,400 mg PRN QHS PRN PO CONSTIPATION; Start 09/12/16 at 19:15 Divalproex Sodium (Depakote) 250 mg BID PO Last administered on 09/20/16 08:38 ; Start 09/12/16 at 21:00; Stop 09/20/16 at 10:41; Status DC Lorazepam (Ativan) 0.5 mg PRN BID PRN PO ANXIETY / AGITATION Last administered on 09/30/16 16:39; Start 09/12/16 at 19:45 Lorazepam (Ativan) 1 mg BID PO Last administered on 09/17/16 08:49; Start 02/19 at 21:00; Stop 09/17/16 at 18:05; Status DC Selegiline HCl (Emsam) 1 patch DAILY TD ; Start 09/13/16 at 09:00; Stop at 18:35; Status DC Buspirone HCl (Buspar) 7.5 mg BID PO Last administered on 09/27/16 09:12; Start 09/12/16 at 21:00; Stop 09/27/16 at 10:31; Status DC Amiodarone HCl (Cordarone) 100 mg DAILY PO Last administered on 10/06/16 11:50 ; Start 09/13/16 at 09:00 Aspirin (Children'S Aspirin) 81 mg DAILY PO Last administered on 10/05/16 08:52 ; Start 09/13/16 at 09:00 Famotidine (Pepcid) 20 mg DAILY PO Last administered on 10/05/16 08:53; Start 09/13/16 at 09:00 Lisinopril (Prinivil) 5 mg DAILY PO Last administered on 10/06/16 11:49; Start 09/13/16 at 09:00 Loperamide HCl (Imodium) 2 mg PRN Q4HRS PRN PO DIARRHEA; Start 09/12/16 at 19: 45 Tamsulosin HCl (Flomax) 0.4 mg DAILY PO Last administered on 10/05/16 08:52; Start 09/13/16 at 09:00 Warfarin Sodium (Coumadin) 2.5 mg DAILY16 PO Last administered on 09/14/16 16: 05; Start 09/13/16 at 16:00; Stop 09/15/16 at 15:03; Status DC Multivitamins/ Calcium (Thera-M Plus) 1 tab DAILY PO Last administered on 08:54; Start 09/13/16 at 09:00 Warfarin Sodium (Coumadin) 2 mg DAILY16 PO Last administered on 09/14/16 16:06 ; Start 09/13/16 at 16:00; Stop 09/15/16 at 15:02; Status DC Warfarin Sodium (Coumadin Per Pharmacy) 1 each PRN DAILY PRN MC SEE COMMENTS Last administered on 10/03/16 10:02; Start 09/13/16 at 03:15 Vitamin D (Vitamin D3) 50,000 unit WEEKLY PO Last administered on 10/05/16 08: 57; Start 09/14/16 at 09:00 Selegiline HCl (Eldepryl) 5 mg DAILY PO Last administered on 10/05/16 08:52; Start 09/14/16 at 09:00 Trazodone HCl (Desyrel) 50 mg PRN QHS PRN PO INSOMNIA, MAY REPEAT X1 Last administered on 10/06/16 19:20; Start 09/14/16 at 19:15 Nystatin (Nystop) 1 wilfredo BID TP Last administered on 10/06/16 19:55; Start 09/15 at 09:00 Nystatin (Nystop) 30 wilfredo STK-MED ONCE TP Last administered on 09/14/16 21:27; Start 09/14/16 at 21:27; Stop 09/14/16 at 21:28; Status DC Warfarin Sodium (Coumadin) 3 mg 1X WARF ONCE PO Last administered on 15:48; Start 09/15/16 at 16:00; Stop 09/15/16 at 16:01; Status DC Warfarin Sodium (Coumadin) 2.5 mg 1X ONCE PO Last administered on 09/15/16 15 :47; Start 09/15/16 at 15:15; Stop 09/15/16 at 15:17; Status DC Warfarin Sodium (Coumadin) 5 mg 1X WARF ONCE PO Last administered on 18:16; Start 09/16/16 at 16:00; Stop 09/16/16 at 16:01; Status DC Warfarin Sodium (Coumadin) 2 mg 1X WARF ONCE PO Last administered on 16:02; Start 09/17/16 at 16:00; Stop 09/17/16 at 16:01; Status DC Warfarin Sodium (Coumadin) 2.5 mg 1X WARF ONCE PO Last administered on 16:03; Start 09/17/16 at 16:00; Stop 09/17/16 at 16:01; Status DC Lorazepam (Ativan) 0.5 mg TID PO Last administered on 09/20/16 20:45; Start at 21:00; Stop 09/20/16 at 21:00; Status DC Lorazepam (Ativan) 0.5 mg BID PO Last administered on 09/24/16 19:38; Start at 09:00; Stop 09/24/16 at 21:01; Status DC Lorazepam (Ativan) 0.5 mg DAILY PO Last administered on 09/27/16 09:15; Start 09/25/16 at 09:00; Stop 09/27/16 at 10:39; Status DC Warfarin Sodium (Coumadin) 2.5 mg 1X WARF ONCE PO Last administered on 14:58; Start 09/18/16 at 16:00; Stop 09/18/16 at 16:01; Status DC Warfarin Sodium (Coumadin) 2 mg 1X WARF ONCE PO Last administered on 14:59; Start 09/18/16 at 16:00; Stop 09/18/16 at 16:01; Status DC Sertraline HCl (Zoloft) 25 mg DAILY PO Last administered on 09/24/16 07:43; Start 09/19/16 at 09:00; Stop 09/24/16 at 18:00; Status DC Warfarin Sodium (Coumadin - No Dose Today) 1 each 1X WARF ONCE MC Last administered on 09/19/16 14:14; Start 09/19/16 at 16:00; Stop 09/19/16 at 16:02 ; Status DC Quetiapine Fumarate (SEROquel) 25 mg QHS PO Last administered on 10/03/16 19: 12; Start 09/20/16 at 21:00; Stop 10/04/16 at 10:51; Status DC Warfarin Sodium (Coumadin) 2.5 mg 1X WARF ONCE PO Last administered on 16:31; Start 09/20/16 at 16:00; Stop 09/20/16 at 16:01; Status DC Valproic Acid (Depakene) 250 mg BID PO Last administered on 09/25/16 09:29; Start 09/20/16 at 21:00; Stop 09/25/16 at 18:06; Status DC Warfarin Sodium (Coumadin) 2.5 mg 1X WARF ONCE PO Last administered on 16:02; Start 09/21/16 at 16:00; Stop 09/21/16 at 16:01; Status DC Warfarin Sodium (Coumadin) 1 mg 1X WARF ONCE PO Last administered on 16:02; Start 09/21/16 at 16:00; Stop 09/21/16 at 16:01; Status DC Mirtazapine (Remeron) 7.5 mg QHS PO Last administered on 09/26/16 19:21; Start 09/21/16 at 21:00; Stop 09/27/16 at 10:31; Status DC Warfarin Sodium (Coumadin) 4 mg 1X WARF ONCE PO Last administered on 16:31; Start 09/22/16 at 16:00; Stop 09/22/16 at 16:01; Status DC Warfarin Sodium (Coumadin) 4 mg 1X WARF ONCE PO Last administered on 15:42; Start 09/23/16 at 16:00; Stop 09/23/16 at 16:01; Status DC Warfarin Sodium (Coumadin) 4 mg DAILY16 PO Last administered on 09/25/16 16:00 ; Start 09/24/16 at 16:00; Stop 09/26/16 at 08:25; Status DC Sertraline HCl (Zoloft) 50 mg DAILY PO Last administered on 10/03/16 08:52; Start 09/25/16 at 09:00; Stop 10/03/16 at 14:04; Status DC Valproic Acid (Depakene) 375 mg BID PO Last administered on 10/03/16 08:53; Start 09/25/16 at 21:00; Stop 10/03/16 at 18:33; Status DC Warfarin Sodium (Coumadin) 2 mg DAILY16 PO Last administered on 10/06/16 16:20 ; Start 09/26/16 at 16:00 Warfarin Sodium (Coumadin) 2.5 mg DAILY16 PO Last administered on 10/06/16 16: 20; Start 09/26/16 at 16:00 Quetiapine Fumarate (SEROquel) 12.5 mg BID92 PO Last administered on 09/30/16 13:36; Start 09/27/16 at 09:00; Stop 09/30/16 at 22:00; Status DC Buspirone HCl (Buspar) 10 mg TID PO Last administered on 10/06/16 19:18; Start 09/27/16 at 14:00 Mirtazapine (Remeron) 15 mg QHS PO Last administered on 10/06/16 19:18; Start 09/27/16 at 21:00 Lorazepam (Ativan) 0.5 mg DAILY PO Last administered on 10/06/16 11:48; Start 09/28/16 at 09:00 Quetiapine Fumarate (SEROquel) 12.5 mg 0900,1400,1700 PO Last administered on 08:52; Start 10/01/16 at 09:00; Stop 10/03/16 at 14:04; Status DC Olanzapine (ZyPREXA ZYDIS) 2.5 mg PRN Q2HR PRN PO PSYCHOSIS Last administered on 10/03/16 11:54; Start 10/03/16 at 10:00 Quetiapine Fumarate (SEROquel) 25 mg 0900,1400,1700 PO Last administered on 10/04 10:01; Start 10/03/16 at 17:00; Stop 10/04/16 at 10:51; Status DC Hydroxyzine HCl (Atarax) 50 mg PRN Q2HR PRN PO ANXIETY / AGITATION Last administered on 10/06/16 11:50; Start 10/03/16 at 14:15 Valproic Acid (Depakene) 500 mg BID PO Last administered on 10/06/16 19:19; Start 10/03/16 at 21:00 Risperidone (RisperDAL) 0.25 mg BID PO Last administered on 10/06/16 19:18; Start 10/04/16 at 21:00 Levothyroxine Sodium (Synthroid) 12.5 mcg DAILY06 PO ; Start 10/07/16 at 06:00 Active Scripts Active Reported Therems-M (Multivits,Th W-Fe,Other Min) 1 Each Tablet 1 Each PO DAILY Tamsulosin Hcl 0.4 Mg Cap.er.24h 0.4 Mg PO DAILY Lisinopril 5 Mg Tablet 5 Mg PO DAILY Famotidine 20 Mg Tablet 20 Mg PO DAILY Emsam (Selegiline) 1 Each Patch.td24 1 Each TD DAILY Aspirin 81 Mg Tab.chew 81 Mg PO DAILY Amiodarone Hcl 200 Mg Tablet 100 Mg PO DAILY Depakote (Divalproex Sodium) 250 Mg Tablet.dr 250 Mg PO BID Coumadin (Warfarin Sodium) 4 Mg Tablet 4.5 Mg PO DAILY Ativan (Lorazepam) 0.5 Mg Tablet 0.5 Mg PO PRN BID PRN Imodium A-D (Loperamide HCl) 2 Mg Capsule 2 Mg PO PRN PRN MDD 12 mg Ativan (Lorazepam) 1 Mg Tablet 1 Mg PO BID Buspirone Hcl 7.5 Mg Tablet 7.5 Mg PO BID Diagnosis: Problems: (1) Dementia (2) Anxiety disorder (3) Impulse control disorder (4) Dementia, vascular, with depression (5) Dementia, vascular, with delusions (6) Dementia in Alzheimer's disease with depression (7) Dementia in Alzheimer's disease with delusions LINDSAY BROWN MD Oct 06, 2016 22:07
--- NOTE | 2016-10-07 01:53 | PN ---
DATE: 10/05/2016 PSYCHIATRIC PROGRESS NOTE This is a late entry of 10/05/2016 covers elements not covered in my initial note. SUBJECTIVE: The patient has been confused, looking for the ____ loaded well in the morning, afternoon he felt people were being killed here. Received Atarax at 1430, did better after that, looked at his memory book and seemed to remember things from the distant past. REVIEW OF SYSTEMS: No CV, , pulmonary, eye system symptoms on review. MENTAL STATUS EXAM: Oriented to himself. Insight, judgment, recent memory is impaired. Language function intact. Mood and affect remain somewhat anxious, labile. LABORATORY DATA: Reviewed. IMPRESSION: Unchanged. PLAN: Continue current psychotropics for now. MAN Phoenix BROWN MD DR: JEREL/tavo JOB#: [id number] / [id number]
--- NOTE | 2016-10-07 01:59 | PN ---
DATE: 10/06/2016 SUBJECTIVE: The patient was seen on rounds afternoon of 10/06/2016. This note covers the elements not covered in my initial note. The patient slept 5-1/4 hours, refused a.m. meds. In the afternoon, he took his meds and ice cream, was getting agitated, paranoid, believing he was being imprisoned here for something he did and was chasing a female nursing staff, had to be placed in a separate hallway. I spent some time with him going through his book and his history and his pictures, which is why has very nicely put together. REVIEW OF SYSTEMS: No CV, , pulmonary, eye system symptoms on review. MENTAL STATUS EXAM: Oriented to himself. Insight, judgment, recent memory is impaired. Language function intact. Mood and affect still somewhat labile. LABORATORY DATA: Reviewed. IMPRESSION: Unchanged from initial note. PLAN: Continue his current psychotropics. Adjust as indicated. LINDSAY BROWN MD DR: JEREL/tavo JOB#: [id number] / [id number]
[2016-10-07] MEDS: LEVOTHYROXINE 25 MCG TABLET. PO SCH ×2 (05:42→05:45)
[2016-10-07 06:22] VITALS: BP 108/71
--- NOTE | 2016-10-07 08:20 | NUR ---
Behavior Intervention Response and Plan: BIRP Note: Behavior: Assumed Care of patient, patient located in Hallway at shift change. Patient exhibited the following behavior Exit Seeking, Non Compliant, Delusions. Brief assessment on rounds of vital signs, medication needs, lab studies, and pain. Treatment plan problems . Intervention: Patient assessed and the following interventions initiated safety checks 15 Minute Checks Head to toe Assessment , Medications , Cognitive Assessment. Response: After interactions and interventions patient responded in the following manner, Exit Seeking , Demanding ,Irritable. Continue to assess behaviors and condition will continue to monitor throughout the shift as needed. Plan: Continue to monitor Master Treatment Plan for patient's progress toward short term goals of Decreased Agitation, Medication Compliance, buttermaker helper goals to return to previous living setting vs placement. Continue to assess patient for changes in above assessment. Monitor for medication needs, pain, and safety concerns. Hourly rounding performed to ensure safe environment.
[2016-10-07] MEDS: busPIRone 10 MG TABLET. PO SCH ×5 (09:37→23:45)
[2016-10-07] MEDS: risperiDONE 0.25 MG TABLET. PO SCH ×4 (09:37→23:46)
[2016-10-07] MEDS: AMIODARONE HCL 200 MG TABLET PO SCH (09:38)
[2016-10-07] MEDS: FAMOTIDINE 20 MG TABLET PO SCH (09:39)
[2016-10-07] MEDS: SELEGILINE 5 MG PO SCH (09:39)
[2016-10-07] MEDS: ASPIRIN 81 MG TAB.CHEW PO SCH (09:40)
[2016-10-07] MEDS: TAMSULOSIN 0.4 MG CAP.ER.24H. PO SCH (09:40)
[2016-10-07] MEDS: LISINOPRIL 5 MG TABLET. PO SCH (09:40)
[2016-10-07] MEDS: MULTIVITAMIN with MINERAL TABLET. PO SCH (09:40)
[2016-10-07] MEDS: VALPROATE ACID 250 MG/5 ML ORAL SOLUTION PO SCH ×2 (09:41→19:19)
[2016-10-07] MEDS: LORazepam 0.5 MG TABLET PO SCH (09:43)
[2016-10-07] MEDS: NYSTATIN TOPICAL POWDER 30GM BOTTLE. TP SCH ×2 (09:44→20:38)
--- NOTE | 2016-10-07 14:21 | NUR ---
At 0730 CO PIPE TURNER told this nurse when the patient woke he stated " your not going to do anymore experiments on me or give me any more shots or vaccinations with that vaccine gun." Patient got up and got dressed and became very agitated yelling at staff to give him is belt and boots. This nurse tried to explain to the patient that he could not have the belt on this floor because it was a danger to him and other patients. Patient kept escalating. Patient escorted to [facility] way for patient and staff safety. While patient was in the choe way he was hitting glass at nurses station stating "he would wrap the belt around my neck if I did not give him his things." Patient stayed in choe way until he calmed down which was about two hours. Patient then functioning fine with the other patients in the day room now will continue to monitor.
[2016-10-07] MEDS: WARFARIN 2 MG TABLET. PO SCH (15:07)
[2016-10-07] MEDS: WARFARIN 2.5 MG TABLET. PO SCH (15:08)
[2016-10-07 16:24] VITALS: BP 120/66
[2016-10-07] MEDS: MIRTAZAPINE 15 MG TABLET PO SCH ×3 (19:19→23:46)
[2016-10-07] MEDS: traZODone 50 MG TABLET. PO PRN ×2 (19:21→23:48)
[2016-10-07] MEDS: LORazepam 0.5 MG TABLET PO PRN ×2 (19:22→21:24)
--- NOTE | 2016-10-07 20:12 | PDOC ---
Exam Blake Demential Exam: Blake Note: Please also refer to the separate dictated note~for this date of service dictated separately.~Patient seen individually. Discussed the patient with Nursing staff reviewed the chart.~Reviewed interim history and current functioning. Reviewed vital signs,~Labs/ Radiology~and current medications noted below. Continue current treatment with the changes noted in the dictated addendum note Assessment: Vital Signs: Vital Signs Date Time Temp Pulse Resp B/P (MAP) Pulse Ox O2 Delivery O2 Flow Rate FiO2 10/07/16 16:24 97.7 98 16 120/66 (84) 98.0 10/07/16 06:22 96 Room Air I&O Intake and Output 10/07/16 07:00 Intake Total 840 ml Balance 840 ml Intake Oral 840 ml # Voids 1 Current Medications: Meds: Current Medications Acetaminophen (Tylenol) 650 mg PRN Q6HRS PRN PO PAIN / TEMP Last administered on 09/15/16 20:02; Start 09/12/16 at 19:15 Multi-Ingredient Ointment (Analgesic [place]) 1 wilfredo PRN QID PRN TP MUSCLE PAIN; Start 09/12/16 at 19:15 Al Hydroxide/Mg Hydroxide (Mylanta Plus Xs) 15 ml PRN AFTMEALHC PRN PO DYSPEPSIA; Start 09/12/16 at 19:15 Magnesium Hydroxide (Milk Of Magnesia) 2,400 mg PRN QHS PRN PO CONSTIPATION; Start 09/12/16 at 19:15 Divalproex Sodium (Depakote) 250 mg BID PO Last administered on 09/20/16 08:38 ; Start 09/12/16 at 21:00; Stop 09/20/16 at 10:41; Status DC Lorazepam (Ativan) 0.5 mg PRN BID PRN PO ANXIETY / AGITATION Last administered on 10/07/16 19:22; Start 09/12/16 at 19:45 Lorazepam (Ativan) 1 mg BID PO Last administered on 09/17/16 08:49; Start 02/19 at 21:00; Stop 09/17/16 at 18:05; Status DC Selegiline HCl (Emsam) 1 patch DAILY TD ; Start 09/13/16 at 09:00; Stop at 18:35; Status DC Buspirone HCl (Buspar) 7.5 mg BID PO Last administered on 09/27/16 09:12; Start 09/12/16 at 21:00; Stop 09/27/16 at 10:31; Status DC Amiodarone HCl (Cordarone) 100 mg DAILY PO Last administered on 10/07/16 09:38 ; Start 09/13/16 at 09:00 Aspirin (Children'S Aspirin) 81 mg DAILY PO Last administered on 10/07/16 09:40 ; Start 09/13/16 at 09:00 Famotidine (Pepcid) 20 mg DAILY PO Last administered on 10/07/16 09:39; Start 09/13/16 at 09:00 Lisinopril (Prinivil) 5 mg DAILY PO Last administered on 10/07/16 09:40; Start 09/13/16 at 09:00 Loperamide HCl (Imodium) 2 mg PRN Q4HRS PRN PO DIARRHEA; Start 09/12/16 at 19: 45 Tamsulosin HCl (Flomax) 0.4 mg DAILY PO Last administered on 10/07/16 09:40; Start 09/13/16 at 09:00 Warfarin Sodium (Coumadin) 2.5 mg DAILY16 PO Last administered on 09/14/16 16: 05; Start 09/13/16 at 16:00; Stop 09/15/16 at 15:03; Status DC Multivitamins/ Calcium (Thera-M Plus) 1 tab DAILY PO Last administered on 09:40; Start 09/13/16 at 09:00 Warfarin Sodium (Coumadin) 2 mg DAILY16 PO Last administered on 09/14/16 16:06 ; Start 09/13/16 at 16:00; Stop 09/15/16 at 15:02; Status DC Warfarin Sodium (Coumadin Per Pharmacy) 1 each PRN DAILY PRN MC SEE COMMENTS Last administered on 10/03/16 10:02; Start 09/13/16 at 03:15 Vitamin D (Vitamin D3) 50,000 unit WEEKLY PO Last administered on 10/05/16 08: 57; Start 09/14/16 at 09:00 Selegiline HCl (Eldepryl) 5 mg DAILY PO Last administered on 10/07/16 09:39; Start 09/14/16 at 09:00 Trazodone HCl (Desyrel) 50 mg PRN QHS PRN PO INSOMNIA, MAY REPEAT X1 Last administered on 10/07/16 19:21; Start 09/14/16 at 19:15 Nystatin (Nystop) 1 wilfredo BID TP Last administered on 10/07/16 09:44; Start 09/15 at 09:00 Nystatin (Nystop) 30 wilfredo STK-MED ONCE TP Last administered on 09/14/16 21:27; Start 09/14/16 at 21:27; Stop 09/14/16 at 21:28; Status DC Warfarin Sodium (Coumadin) 3 mg 1X WARF ONCE PO Last administered on 15:48; Start 09/15/16 at 16:00; Stop 09/15/16 at 16:01; Status DC Warfarin Sodium (Coumadin) 2.5 mg 1X ONCE PO Last administered on 09/15/16 15 :47; Start 09/15/16 at 15:15; Stop 09/15/16 at 15:17; Status DC Warfarin Sodium (Coumadin) 5 mg 1X WARF ONCE PO Last administered on 18:16; Start 09/16/16 at 16:00; Stop 09/16/16 at 16:01; Status DC Warfarin Sodium (Coumadin) 2 mg 1X WARF ONCE PO Last administered on 16:02; Start 09/17/16 at 16:00; Stop 09/17/16 at 16:01; Status DC Warfarin Sodium (Coumadin) 2.5 mg 1X WARF ONCE PO Last administered on 16:03; Start 09/17/16 at 16:00; Stop 09/17/16 at 16:01; Status DC Lorazepam (Ativan) 0.5 mg TID PO Last administered on 09/20/16 20:45; Start at 21:00; Stop 09/20/16 at 21:00; Status DC Lorazepam (Ativan) 0.5 mg BID PO Last administered on 09/24/16 19:38; Start at 09:00; Stop 09/24/16 at 21:01; Status DC Lorazepam (Ativan) 0.5 mg DAILY PO Last administered on 09/27/16 09:15; Start 09/25/16 at 09:00; Stop 09/27/16 at 10:39; Status DC Warfarin Sodium (Coumadin) 2.5 mg 1X WARF ONCE PO Last administered on 14:58; Start 09/18/16 at 16:00; Stop 09/18/16 at 16:01; Status DC Warfarin Sodium (Coumadin) 2 mg 1X WARF ONCE PO Last administered on 14:59; Start 09/18/16 at 16:00; Stop 09/18/16 at 16:01; Status DC Sertraline HCl (Zoloft) 25 mg DAILY PO Last administered on 09/24/16 07:43; Start 09/19/16 at 09:00; Stop 09/24/16 at 18:00; Status DC Warfarin Sodium (Coumadin - No Dose Today) 1 each 1X WARF ONCE MC Last administered on 09/19/16 14:14; Start 09/19/16 at 16:00; Stop 09/19/16 at 16:02 ; Status DC Quetiapine Fumarate (SEROquel) 25 mg QHS PO Last administered on 10/03/16 19: 12; Start 09/20/16 at 21:00; Stop 10/04/16 at 10:51; Status DC Warfarin Sodium (Coumadin) 2.5 mg 1X WARF ONCE PO Last administered on 16:31; Start 09/20/16 at 16:00; Stop 09/20/16 at 16:01; Status DC Valproic Acid (Depakene) 250 mg BID PO Last administered on 09/25/16 09:29; Start 09/20/16 at 21:00; Stop 09/25/16 at 18:06; Status DC Warfarin Sodium (Coumadin) 2.5 mg 1X WARF ONCE PO Last administered on 16:02; Start 09/21/16 at 16:00; Stop 09/21/16 at 16:01; Status DC Warfarin Sodium (Coumadin) 1 mg 1X WARF ONCE PO Last administered on 16:02; Start 09/21/16 at 16:00; Stop 09/21/16 at 16:01; Status DC Mirtazapine (Remeron) 7.5 mg QHS PO Last administered on 09/26/16 19:21; Start 09/21/16 at 21:00; Stop 09/27/16 at 10:31; Status DC Warfarin Sodium (Coumadin) 4 mg 1X WARF ONCE PO Last administered on 16:31; Start 09/22/16 at 16:00; Stop 09/22/16 at 16:01; Status DC Warfarin Sodium (Coumadin) 4 mg 1X WARF ONCE PO Last administered on 15:42; Start 09/23/16 at 16:00; Stop 09/23/16 at 16:01; Status DC Warfarin Sodium (Coumadin) 4 mg DAILY16 PO Last administered on 09/25/16 16:00 ; Start 09/24/16 at 16:00; Stop 09/26/16 at 08:25; Status DC Sertraline HCl (Zoloft) 50 mg DAILY PO Last administered on 10/03/16 08:52; Start 09/25/16 at 09:00; Stop 10/03/16 at 14:04; Status DC Valproic Acid (Depakene) 375 mg BID PO Last administered on 10/03/16 08:53; Start 09/25/16 at 21:00; Stop 10/03/16 at 18:33; Status DC Warfarin Sodium (Coumadin) 2 mg DAILY16 PO Last administered on 10/07/16 15:07 ; Start 09/26/16 at 16:00 Warfarin Sodium (Coumadin) 2.5 mg DAILY16 PO Last administered on 10/07/16 15: 08; Start 09/26/16 at 16:00 Quetiapine Fumarate (SEROquel) 12.5 mg BID92 PO Last administered on 09/30/16 13:36; Start 09/27/16 at 09:00; Stop 09/30/16 at 22:00; Status DC Buspirone HCl (Buspar) 10 mg TID PO Last administered on 10/07/16 19:19; Start 09/27/16 at 14:00 Mirtazapine (Remeron) 15 mg QHS PO Last administered on 10/07/16 19:19; Start 09/27/16 at 21:00 Lorazepam (Ativan) 0.5 mg DAILY PO Last administered on 10/07/16 09:43; Start 09/28/16 at 09:00 Quetiapine Fumarate (SEROquel) 12.5 mg 0900,1400,1700 PO Last administered on 08:52; Start 10/01/16 at 09:00; Stop 10/03/16 at 14:04; Status DC Olanzapine (ZyPREXA ZYDIS) 2.5 mg PRN Q2HR PRN PO PSYCHOSIS Last administered on 10/03/16 11:54; Start 10/03/16 at 10:00 Quetiapine Fumarate (SEROquel) 25 mg 0900,1400,1700 PO Last administered on 10/04 10:01; Start 10/03/16 at 17:00; Stop 10/04/16 at 10:51; Status DC Hydroxyzine HCl (Atarax) 50 mg PRN Q2HR PRN PO ANXIETY / AGITATION Last administered on 10/06/16 11:50; Start 10/03/16 at 14:15 Valproic Acid (Depakene) 500 mg BID PO Last administered on 10/07/16 19:19; Start 10/03/16 at 21:00 Risperidone (RisperDAL) 0.25 mg BID PO Last administered on 10/07/16 19:19; Start 10/04/16 at 21:00 Levothyroxine Sodium (Synthroid) 12.5 mcg DAILY06 PO ; Start 10/07/16 at 06:00 Active Scripts Active Reported Therems-M (Multivits, W-Fe,Other Min) 1 Each Tablet 1 Each PO DAILY Tamsulosin Hcl 0.4 Mg Cap.er.24h 0.4 Mg PO DAILY Lisinopril 5 Mg Tablet 5 Mg PO DAILY Famotidine 20 Mg Tablet 20 Mg PO DAILY Emsam (Selegiline) 1 Each Patch.td24 1 Each TD DAILY Aspirin 81 Mg Tab.chew 81 Mg PO DAILY Amiodarone Hcl 200 Mg Tablet 100 Mg PO DAILY Depakote (Divalproex Sodium) 250 Mg Tablet.dr 250 Mg PO BID Coumadin (Warfarin Sodium) 4 Mg Tablet 4.5 Mg PO DAILY Ativan (Lorazepam) 0.5 Mg Tablet 0.5 Mg PO PRN BID PRN Imodium A-D (Loperamide HCl) 2 Mg Capsule 2 Mg PO PRN PRN MDD 12 mg Ativan (Lorazepam) 1 Mg Tablet 1 Mg PO BID Buspirone Hcl 7.5 Mg Tablet 7.5 Mg PO BID Diagnosis: Problems: (1) Dementia (2) Encounter for medical screening examination (3) Anxiety disorder (4) Impulse control disorder (5) Dementia, vascular, with depression (6) Dementia, vascular, with delusions (7) Dementia in Alzheimer's disease with depression (8) Dementia in Alzheimer's disease with delusions LINDSAY BROWN MD Oct 07, 2016 20:11
--- NOTE | 2016-10-07 22:26 | NUR ---
Behavior Intervention Response and Plan: BIRP Note: Behavior: Assumed Care of patient, patient located in Hallway at shift change. Patient exhibited the following behavior Restless, Agitated, Non Compliant. Brief assessment on rounds of vital signs, medication needs, lab studies, and pain. Treatment plan problems:1-2 Intervention: Patient assessed and the following interventions initiated safety checks 15 Minute Checks Cognitive Assessment , Head to toe Assessment , Medications. Response: After interactions and interventions patient responded in the following manner, Demanding , Irritable ,Non Compliant. Continue to assess behaviors and condition will continue to monitor throughout the shift as needed. Plan: Continue to monitor Master Treatment Plan for patient's progress toward short term goals of Decreased Agitation, , [facility] goals to return to previous living setting vs placement. Continue to assess patient for changes in above assessment. Monitor for medication needs, pain, and safety concerns. Hourly rounding performed to ensure safe environment.
--- NOTE | 2016-10-08 00:28 | NUR ---
Nsg Note: Pt was in the [place] @ shift change secondary to agitation & exit seeking AEB by pounding on the exit doors & banging on the windows. Pt requested that staff talk to him "right now"- he was informed that I would be out in a few minutes after report. 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 Pt allowed to vent his frustration & I further tried to validate his feelings in addition to reorientation & reality feedback all to no avail. It seemed that the more I interacted w/ him the more argumentative he became. I informed pt that he would remain in the [facility] until he could get himself calmed down. Pt refused nsg assessment & also his HS meds multiple times. They were offered whole & also crushed in food/drink. Pt finally agreed to take his meds @ 2330. Pt took them crushed in food & then agreed to take a shower & was cooperative & then settled for HS without further difficulty. Dr Hadley was informed of pt's behavior throughout the day today & he decided to d/c the selegeline & increase the frequency of prn ativan. His called x2 julian & was updated on pt's status & was relived to hear that he was finally calming down. Will cont. to monitor.
[2016-10-08] MEDS: LEVOTHYROXINE 25 MCG TABLET. PO SCH ×2 (05:40→05:49)
[2016-10-08 06:08] VITALS: BP 152/97
[2016-10-08] MEDS: FAMOTIDINE 20 MG TABLET PO SCH (09:00)
[2016-10-08] MEDS: LORazepam 0.5 MG TABLET PO SCH (09:00)
[2016-10-08] MEDS: risperiDONE 0.25 MG TABLET. PO SCH ×2 (09:00→19:42)
[2016-10-08] MEDS: VALPROATE ACID 250 MG/5 ML ORAL SOLUTION PO SCH ×2 (09:00→19:43)
[2016-10-08] MEDS: AMIODARONE HCL 200 MG TABLET PO SCH (09:00)
[2016-10-08] MEDS: busPIRone 10 MG TABLET. PO SCH ×3 (09:00→19:42)
[2016-10-08] MEDS: MULTIVITAMIN with MINERAL TABLET. PO SCH (09:01)
[2016-10-08] MEDS: ASPIRIN 81 MG TAB.CHEW PO SCH (09:01)
[2016-10-08] MEDS: LISINOPRIL 5 MG TABLET. PO SCH (09:01)
[2016-10-08] MEDS: NYSTATIN TOPICAL POWDER 30GM BOTTLE. TP SCH ×2 (09:02→19:43)
[2016-10-08] MEDS: TAMSULOSIN 0.4 MG CAP.ER.24H. PO SCH (09:02)
--- NOTE | 2016-10-08 11:37 | NUR ---
SW returned Pt's , Dana's message regarding dc plans for later in the week. SW left message and encouraged Dana to call back if she has further questions for this SW.
--- NOTE | 2016-10-08 13:40 | NUR ---
Behavior Intervention Response and Plan: BIRP Note: Behavior: Assumed Care of patient, patient located in Patient Room at shift change. Patient exhibited the following behavior Restless, Compliant, Resistive. Brief assessment on rounds of vital signs, medication needs, lab studies, and pain. Treatment plan problems . Intervention: Patient assessed and the following interventions initiated safety checks 15 Minute Checks Cognitive Assessment , Head to toe Assessment , Medications. Response: After interactions and interventions patient responded in the following manner, Calm , Compliant ,Cooperative. Continue to assess behaviors and condition will continue to monitor throughout the shift as needed. Plan: Continue to monitor Master Treatment Plan for patient's progress toward short term goals of Decreased Anxiety, Decreased Agitation, residential goals to return to previous living setting vs placement. Continue to assess patient for changes in above assessment. Monitor for medication needs, pain, and safety concerns. Hourly rounding performed to ensure safe environment.
--- NOTE | 2016-10-08 14:50 | NUR ---
SW GROUP NOTE TITLE: Outside Horseshoes! ACTIVITY: Took the foam horse shoe game to the patio. TIME: 1:15-2:15 TARGET BEHAVIOR: Socialization, validation, reminisce, problem solving RESPONSE: Participated
--- NOTE | 2016-10-08 15:15 | NUR ---
THERAPEUTIC RECREATION GROUP NOTE TITLE :Painting Popsicle Sticks ACTIVITY : Arts [employer] GOAL : Reduce stress, anxiety. Increase creativity and fine motor functioning DURATION : 75 Minutes RESPONSE : No participation.
--- NOTE | 2016-10-08 15:35 | NUR ---
PAULINE GROUP NOTE TITLE: Reminisce ACTIVITY: Reminisced about life, sharing stories about their pets, jobs, family etc. TIME: 2:00-2:45 TARGET BEHAVIOR: Social Skills, Validation, Therapeutic Expression RESPONSE: High
[2016-10-08] MEDS: WARFARIN 2.5 MG TABLET. PO SCH (16:21)
[2016-10-08] MEDS: WARFARIN 2 MG TABLET. PO SCH (16:21)
[2016-10-08 16:51] VITALS: BP 110/58
--- NOTE | 2016-10-08 17:12 | NUR ---
Pharmacy Warfarin Dosing Note S:Pharmacy consulted to assist with anticoagulation therapy started 09/13/16 with target INR: 2 -3 O:ABBEY MATHIS is a 76 year old M with Stroke LABS: Last INR: 4.3 Last HGB: 11.5 Last HCT: 34.5 Last PLT: 143 Last dose of 4.5 MG DAILY given on 10/08/16 at 1600 Previous Regimen: 4.5MG DAILY HOME DOSE Vitamin K given: N Drug Interaction Changes: Same Interacting Drug Ongoing Drug Interactions: AMIODARONE We will hold warfarin dose for tomorrow and monitor INR series, patient has no new interacting medications in the last few days and diet is regular, skips some meals but otherwise eats regularly. A:INR Above desired Range. Target Range for this patient is: 2 -3 P: Warfarin dose: Hold Now Bridge Therapy: None Next INR due 10/09/16 @ 0600 Pharmacy anticoagulation service will continue to follow. [facility], 10/08/16 [id number]
[2016-10-08] MEDS: MIRTAZAPINE 15 MG TABLET PO SCH (19:42)
--- NOTE | 2016-10-08 21:08 | PDOC ---
Exam Blake Demential Exam: Blake Note: Please also refer to the separate dictated note~for this date of service dictated separately.~Patient seen individually. Discussed the patient with Nursing staff reviewed the chart.~Reviewed interim history and current functioning. Reviewed vital signs,~Labs/ Radiology~and current medications noted below. Continue current treatment with the changes noted in the dictated addendum note Assessment: Vital Signs: Vital Signs Date Time Temp Pulse Resp B/P (MAP) Pulse Ox O2 Delivery O2 Flow Rate FiO2 10/08/16 16:51 97.9 76 18 110/58 (75) 96 10/07/16 16:24 98.0 10/07/16 06:22 Room Air I&O Intake and Output 10/08/16 07:00 Intake Total 360 ml Balance 360 ml Intake Oral 360 ml Labs: Laboratory Tests Test 10/08/16 09:12 Prothrombin Time 43.8 SEC (9.4-11.4) H Prothrombin Time INR 4.3 (0.9-1.1) H Current Medications: Meds: Current Medications Acetaminophen (Tylenol) 650 mg PRN Q6HRS PRN PO PAIN / TEMP Last administered on 09/15/16 20:02; Start 09/12/16 at 19:15 Multi-Ingredient Ointment (Analgesic [place]) 1 wilfredo PRN QID PRN TP MUSCLE PAIN; Start 09/12/16 at 19:15 Al Hydroxide/Mg Hydroxide (Mylanta Plus Xs) 15 ml PRN AFTMEALHC PRN PO DYSPEPSIA; Start 09/12/16 at 19:15 Magnesium Hydroxide (Milk Of Magnesia) 2,400 mg PRN QHS PRN PO CONSTIPATION; Start 09/12/16 at 19:15 Divalproex Sodium (Depakote) 250 mg BID PO Last administered on 09/20/16 08:38 ; Start 09/12/16 at 21:00; Stop 09/20/16 at 10:41; Status DC Lorazepam (Ativan) 0.5 mg PRN BID PRN PO ANXIETY / AGITATION Last administered on 10/07/16 19:22; Start 09/12/16 at 19:45; Stop 10/07/16 at 20:59; Status DC Lorazepam (Ativan) 1 mg BID PO Last administered on 09/17/16 08:49; Start 02/19 at 21:00; Stop 09/17/16 at 18:05; Status DC Selegiline HCl (Emsam) 1 patch DAILY TD ; Start 09/13/16 at 09:00; Stop at 18:35; Status DC Buspirone HCl (Buspar) 7.5 mg BID PO Last administered on 09/27/16 09:12; Start 09/12/16 at 21:00; Stop 09/27/16 at 10:31; Status DC Amiodarone HCl (Cordarone) 100 mg DAILY PO Last administered on 10/08/16 09:00 ; Start 09/13/16 at 09:00 Aspirin (Children'S Aspirin) 81 mg DAILY PO Last administered on 10/08/16 09:01 ; Start 09/13/16 at 09:00 Famotidine (Pepcid) 20 mg DAILY PO Last administered on 10/08/16 09:00; Start 09/13/16 at 09:00 Lisinopril (Prinivil) 5 mg DAILY PO Last administered on 10/08/16 09:01; Start 09/13/16 at 09:00 Loperamide HCl (Imodium) 2 mg PRN Q4HRS PRN PO DIARRHEA; Start 09/12/16 at 19: 45 Tamsulosin HCl (Flomax) 0.4 mg DAILY PO Last administered on 10/08/16 09:02; Start 09/13/16 at 09:00 Warfarin Sodium (Coumadin) 2.5 mg DAILY16 PO Last administered on 09/14/16 16: 05; Start 09/13/16 at 16:00; Stop 09/15/16 at 15:03; Status DC Multivitamins/ Calcium (Thera-M Plus) 1 tab DAILY PO Last administered on 09:01; Start 09/13/16 at 09:00 Warfarin Sodium (Coumadin) 2 mg DAILY16 PO Last administered on 09/14/16 16:06 ; Start 09/13/16 at 16:00; Stop 09/15/16 at 15:02; Status DC Warfarin Sodium (Coumadin Per Pharmacy) 1 each PRN DAILY PRN MC SEE COMMENTS Last administered on 10/08/16 17:11; Start 09/13/16 at 03:15 Vitamin D (Vitamin D3) 50,000 unit WEEKLY PO Last administered on 10/05/16 08: 57; Start 09/14/16 at 09:00 Selegiline HCl (Eldepryl) 5 mg DAILY PO Last administered on 10/07/16 09:39; Start 09/14/16 at 09:00; Stop 10/07/16 at 20:59; Status DC Trazodone HCl (Desyrel) 50 mg PRN QHS PRN PO INSOMNIA, MAY REPEAT X1 Last administered on 10/07/16 23:48; Start 09/14/16 at 19:15 Nystatin (Nystop) 1 wilfredo BID TP Last administered on 10/08/16 19:43; Start 09/15 at 09:00 Nystatin (Nystop) 30 wilfredo STK-MED ONCE TP Last administered on 09/14/16 21:27; Start 09/14/16 at 21:27; Stop 09/14/16 at 21:28; Status DC Warfarin Sodium (Coumadin) 3 mg 1X WARF ONCE PO Last administered on 15:48; Start 09/15/16 at 16:00; Stop 09/15/16 at 16:01; Status DC Warfarin Sodium (Coumadin) 2.5 mg 1X ONCE PO Last administered on 09/15/16 15 :47; Start 09/15/16 at 15:15; Stop 09/15/16 at 15:17; Status DC Warfarin Sodium (Coumadin) 5 mg 1X WARF ONCE PO Last administered on 18:16; Start 09/16/16 at 16:00; Stop 09/16/16 at 16:01; Status DC Warfarin Sodium (Coumadin) 2 mg 1X WARF ONCE PO Last administered on 16:02; Start 09/17/16 at 16:00; Stop 09/17/16 at 16:01; Status DC Warfarin Sodium (Coumadin) 2.5 mg 1X WARF ONCE PO Last administered on 16:03; Start 09/17/16 at 16:00; Stop 09/17/16 at 16:01; Status DC Lorazepam (Ativan) 0.5 mg TID PO Last administered on 09/20/16 20:45; Start at 21:00; Stop 09/20/16 at 21:00; Status DC Lorazepam (Ativan) 0.5 mg BID PO Last administered on 09/24/16 19:38; Start at 09:00; Stop 09/24/16 at 21:01; Status DC Lorazepam (Ativan) 0.5 mg DAILY PO Last administered on 09/27/16 09:15; Start 09/25/16 at 09:00; Stop 09/27/16 at 10:39; Status DC Warfarin Sodium (Coumadin) 2.5 mg 1X WARF ONCE PO Last administered on 14:58; Start 09/18/16 at 16:00; Stop 09/18/16 at 16:01; Status DC Warfarin Sodium (Coumadin) 2 mg 1X WARF ONCE PO Last administered on 14:59; Start 09/18/16 at 16:00; Stop 09/18/16 at 16:01; Status DC Sertraline HCl (Zoloft) 25 mg DAILY PO Last administered on 09/24/16 07:43; Start 09/19/16 at 09:00; Stop 09/24/16 at 18:00; Status DC Warfarin Sodium (Coumadin - No Dose Today) 1 each 1X WARF ONCE MC Last administered on 09/19/16 14:14; Start 09/19/16 at 16:00; Stop 09/19/16 at 16:02 ; Status DC Quetiapine Fumarate (SEROquel) 25 mg QHS PO Last administered on 10/03/16 19: 12; Start 09/20/16 at 21:00; Stop 10/04/16 at 10:51; Status DC Warfarin Sodium (Coumadin) 2.5 mg 1X WARF ONCE PO Last administered on 16:31; Start 09/20/16 at 16:00; Stop 09/20/16 at 16:01; Status DC Valproic Acid (Depakene) 250 mg BID PO Last administered on 09/25/16 09:29; Start 09/20/16 at 21:00; Stop 09/25/16 at 18:06; Status DC Warfarin Sodium (Coumadin) 2.5 mg 1X WARF ONCE PO Last administered on 16:02; Start 09/21/16 at 16:00; Stop 09/21/16 at 16:01; Status DC Warfarin Sodium (Coumadin) 1 mg 1X WARF ONCE PO Last administered on 16:02; Start 09/21/16 at 16:00; Stop 09/21/16 at 16:01; Status DC Mirtazapine (Remeron) 7.5 mg QHS PO Last administered on 09/26/16 19:21; Start 09/21/16 at 21:00; Stop 09/27/16 at 10:31; Status DC Warfarin Sodium (Coumadin) 4 mg 1X WARF ONCE PO Last administered on 16:31; Start 09/22/16 at 16:00; Stop 09/22/16 at 16:01; Status DC Warfarin Sodium (Coumadin) 4 mg 1X WARF ONCE PO Last administered on 15:42; Start 09/23/16 at 16:00; Stop 09/23/16 at 16:01; Status DC Warfarin Sodium (Coumadin) 4 mg DAILY16 PO Last administered on 09/25/16 16:00 ; Start 09/24/16 at 16:00; Stop 09/26/16 at 08:25; Status DC Sertraline HCl (Zoloft) 50 mg DAILY PO Last administered on 10/03/16 08:52; Start 09/25/16 at 09:00; Stop 10/03/16 at 14:04; Status DC Valproic Acid (Depakene) 375 mg BID PO Last administered on 10/03/16 08:53; Start 09/25/16 at 21:00; Stop 10/03/16 at 18:33; Status DC Warfarin Sodium (Coumadin) 2 mg DAILY16 PO Last administered on 10/08/16 16:21 ; Start 09/26/16 at 16:00; Stop 10/08/16 at 16:53; Status DC Warfarin Sodium (Coumadin) 2.5 mg DAILY16 PO Last administered on 10/08/16 16: 21; Start 09/26/16 at 16:00; Stop 10/08/16 at 16:53; Status DC Quetiapine Fumarate (SEROquel) 12.5 mg BID92 PO Last administered on 09/30/16 13:36; Start 09/27/16 at 09:00; Stop 09/30/16 at 22:00; Status DC Buspirone HCl (Buspar) 10 mg TID PO Last administered on 10/08/16 19:42; Start 09/27/16 at 14:00 Mirtazapine (Remeron) 15 mg QHS PO Last administered on 10/08/16 19:42; Start 09/27/16 at 21:00 Lorazepam (Ativan) 0.5 mg DAILY PO Last administered on 10/08/16 09:00; Start 09/28/16 at 09:00 Quetiapine Fumarate (SEROquel) 12.5 mg 0900,1400,1700 PO Last administered on 08:52; Start 10/01/16 at 09:00; Stop 10/03/16 at 14:04; Status DC Olanzapine (ZyPREXA ZYDIS) 2.5 mg PRN Q2HR PRN PO PSYCHOSIS Last administered on 10/03/16 11:54; Start 10/03/16 at 10:00 Quetiapine Fumarate (SEROquel) 25 mg 0900,1400,1700 PO Last administered on 10/04 10:01; Start 10/03/16 at 17:00; Stop 10/04/16 at 10:51; Status DC Hydroxyzine HCl (Atarax) 50 mg PRN Q2HR PRN PO ANXIETY / AGITATION Last administered on 10/06/16 11:50; Start 10/03/16 at 14:15 Valproic Acid (Depakene) 500 mg BID PO Last administered on 10/08/16 19:43; Start 10/03/16 at 21:00 Risperidone (RisperDAL) 0.25 mg BID PO Last administered on 10/08/16 19:42; Start 10/04/16 at 21:00 Levothyroxine Sodium (Synthroid) 12.5 mcg DAILY06 PO ; Start 10/07/16 at 06:00 Lorazepam (Ativan) 0.25 mg PRN Q2HR PRN PO ANXIETY / AGITATION; Start 10/07/16 at 21:15 Active Scripts Active Reported Therems-M (Multivits,Th W-Fe,Other Min) 1 Each Tablet 1 Each PO DAILY Tamsulosin Hcl 0.4 Mg Cap.er.24h 0.4 Mg PO DAILY Lisinopril 5 Mg Tablet 5 Mg PO DAILY Famotidine 20 Mg Tablet 20 Mg PO DAILY Emsam (Selegiline) 1 Each Patch.td24 1 Each TD DAILY Aspirin 81 Mg Tab.chew 81 Mg PO DAILY Amiodarone Hcl 200 Mg Tablet 100 Mg PO DAILY Depakote (Divalproex Sodium) 250 Mg Tablet.dr 250 Mg PO BID Coumadin (Warfarin Sodium) 4 Mg Tablet 4.5 Mg PO DAILY Ativan (Lorazepam) 0.5 Mg Tablet 0.5 Mg PO PRN BID PRN Imodium A-D (Loperamide HCl) 2 Mg Capsule 2 Mg PO PRN PRN MDD 12 mg Ativan (Lorazepam) 1 Mg Tablet 1 Mg PO BID Buspirone Hcl 7.5 Mg Tablet 7.5 Mg PO BID Diagnosis: Problems: (1) Dementia (2) Encounter for medical screening examination (3) Anxiety disorder (4) Impulse control disorder (5) Dementia, vascular, with depression (6) Dementia, vascular, with delusions (7) Dementia in Alzheimer's disease with depression (8) Dementia in Alzheimer's disease with delusions LINDSAY BROWN MD Oct 08, 2016 21:08
--- NOTE | 2016-10-08 23:15 | NUR ---
Behavior Intervention Response and Plan: BIRP Note: Behavior: Assumed Care of patient, patient located in Day Room at shift change. Patient exhibited the following behavior Calm, Disorganized, Cooperative. Brief assessment on rounds of vital signs, medication needs, lab studies, and pain. Treatment plan problems 1 and 2. Intervention: Patient assessed and the following interventions initiated safety checks 15 Minute Checks Cognitive Assessment , , Medications. Response: After interactions and interventions patient responded in the following manner, Calm , Compliant ,Cooperative. Continue to assess behaviors and condition will continue to monitor throughout the shift as needed. Plan: Continue to monitor Master Treatment Plan for patient's progress toward short term goals of Decreased Agitation, Decreased Aggression, group home goals to return to previous living setting vs placement. Continue to assess patient for changes in above assessment. Monitor for medication needs, pain, and safety concerns. Hourly rounding performed to ensure safe environment.
[2016-10-08] MEDS: traZODone 50 MG TABLET. PO PRN (23:18)
--- NOTE | 2016-10-09 05:03 | PN ---
DATE: 10/07/2016 PSYCHIATRIC PROGRESS NOTE This is a late entry 10/07/2016 covers the elements not covered in my initial note. SUBJECTIVE: Per nursing report, the patient has had very difficult day. He has made repeated statements that people are experimenting on him and the other patients here. He has been using profanities to his nursing staff, making threats to kill himself. He has had to be isolated in a separate hallway, anxious, confused. REVIEW OF SYSTEMS: No CV, , pulmonary, eye, ENT system symptoms on review. Reliability poor. MENTAL STATUS EXAM: Oriented to himself. Insight, judgment, recent and remote memory, attention, concentration, fund of knowledge poor consistent with his diagnosis mentioned in my initial note. PLAN: Change Ativan to 0.25 mg every 2 hours p.r.n. anxiety max 2 mg in 24 hours. Maintain scheduled Ativan 0.5 mg daily, BuSpar 10 t.i.d., depakene 500 b.i.d. level is 60. Stop selegiline since this could be worsening his agitation. Maintain trazodone, Risperdal 0.25 b.i.d., Remeron 15 at bedtime, Zyprexa and Atarax p.r.n.. LINDSAY BROWN MD DR: JEREL/tavo JOB#: [id number] / [id number]
[2016-10-09] MEDS: LEVOTHYROXINE 25 MCG TABLET. PO SCH (05:23)
[2016-10-09 06:33] VITALS: BP 134/81
[2016-10-09] MEDS: NYSTATIN TOPICAL POWDER 30GM BOTTLE. TP SCH ×2 (09:00→20:39)
[2016-10-09] MEDS: ASPIRIN 81 MG TAB.CHEW PO SCH (09:00)
[2016-10-09] MEDS: LORazepam 0.5 MG TABLET PO SCH (09:00)
[2016-10-09] MEDS: LISINOPRIL 5 MG TABLET. PO SCH (09:01)
[2016-10-09] MEDS: risperiDONE 0.25 MG TABLET. PO SCH ×2 (09:01→20:38)
[2016-10-09] MEDS: FAMOTIDINE 20 MG TABLET PO SCH (09:01)
[2016-10-09] MEDS: MULTIVITAMIN with MINERAL TABLET. PO SCH (09:01)
[2016-10-09] MEDS: TAMSULOSIN 0.4 MG CAP.ER.24H. PO SCH (09:01)
[2016-10-09] MEDS: busPIRone 10 MG TABLET. PO SCH ×3 (09:01→20:38)
[2016-10-09] MEDS: VALPROATE ACID 250 MG/5 ML ORAL SOLUTION PO SCH ×2 (09:01→20:38)
[2016-10-09] MEDS: AMIODARONE HCL 200 MG TABLET PO SCH (09:02)
--- NOTE | 2016-10-09 09:56 | NUR ---
Behavior Intervention Response and Plan: BIRP Note: Behavior: Assumed Care of patient, patient located in Patient Room at shift change. Patient exhibited the following behavior Wandering, Exit Seeking, Interactive. Brief assessment on rounds of vital signs, medication needs, lab studies, and pain. Treatment plan problems . Intervention: Patient assessed and the following interventions initiated safety checks 15 Minute Checks Head to toe Assessment , Medications , Nutrition. Response: After interactions and interventions patient responded in the following manner, Compliant , Delusions ,Disorganized. Continue to assess behaviors and condition will continue to monitor throughout the shift as needed. Plan: Continue to monitor Master Treatment Plan for patient's progress toward short term goals of Decreased Agitation, No harm To self/ others, director it project goals to return to previous living setting vs placement. Continue to assess patient for changes in above assessment. Monitor for medication needs, pain, and safety concerns. Hourly rounding performed to ensure safe environment.
--- NOTE | 2016-10-09 14:00 | NUR ---
THERAPEUTIC RECREATION GROUP NOTE TITLE :Sing along with Deidra ACTIVITY : Music GOAL : Increase socialization, elevate mood, stimulate memory DURATION : 50 minutes RESPONSE : No participation.
--- NOTE | 2016-10-09 15:15 | NUR ---
THERAPEUTIC RECREATION GROUP NOTE TITLE :Music Bingo! ACTIVITY : Music GOAL : Increase socialization, elevate mood, stimulate memory DURATION : 60 minutes RESPONSE : No participation.
--- NOTE | 2016-10-09 15:45 | NUR ---
Pharmacy Warfarin Dosing Note S:Pharmacy consulted to assist with anticoagulation therapy started 09/13/16 with target INR: 2 -3 O:ABBEY MATHIS is a 76 year old M with Stroke LABS: Last INR: 3.7 Last HGB: 38.1 Last HCT: 34.5 Last PLT: 143 Last dose of 4.5MG given on 10/08/16 at 1600 Previous Regimen: 4.5MG DAILY HOME DOSE Vitamin K given: N Drug Interaction Changes: Same Interacting Drug Ongoing Drug Interactions: AMIODARONE We will hold warfarin dose for tomorrow and monitor INR series, patient has no new interacting medications in the last few days and diet is regular, skips some meals but otherwise eats regularly. A:INR Above desired Range. Target Range for this patient is: 2 -3 P: Warfarin dose: Hold Today Bridge Therapy: None Next INR due 10/10/16 @0600 Pharmacy anticoagulation service will continue to follow. [facility], 10/09/16 [id number]
[2016-10-09 16:31] VITALS: BP 111/77
--- NOTE | 2016-10-09 20:29 | PDOC ---
Exam Blake Demential Exam: Blake Note: Please also refer to the separate dictated note~for this date of service dictated separately.~Patient seen individually. Discussed the patient with Nursing staff reviewed the chart.~Reviewed interim history and current functioning. Reviewed vital signs,~Labs/ Radiology~and current medications noted below. Continue current treatment with the changes noted in the dictated addendum note Assessment: Vital Signs: Vital Signs Date Time Temp Pulse Resp B/P (MAP) Pulse Ox O2 Delivery O2 Flow Rate FiO2 10/09/16 16:31 98.1 71 20 111/77 (88) 95 Room Air 10/07/16 16:24 98.0 I&O Intake and Output 10/09/16 07:00 Intake Total 1080 ml Balance 1080 ml Intake Oral 840 ml Tube Feeding 240 ml Labs: Laboratory Tests Test 10/09/16 07:25 Prothrombin Time 38.1 SEC (9.4-11.4) H Prothrombin Time INR 3.7 (0.9-1.1) H Current Medications: Meds: Current Medications Acetaminophen (Tylenol) 650 mg PRN Q6HRS PRN PO PAIN / TEMP Last administered on 09/15/16 20:02; Start 09/12/16 at 19:15 Multi-Ingredient Ointment (Analgesic [place]) 1 wilfredo PRN QID PRN TP MUSCLE PAIN; Start 09/12/16 at 19:15 Al Hydroxide/Mg Hydroxide (Mylanta Plus Xs) 15 ml PRN AFTMEALHC PRN PO DYSPEPSIA; Start 09/12/16 at 19:15 Magnesium Hydroxide (Milk Of Magnesia) 2,400 mg PRN QHS PRN PO CONSTIPATION; Start 09/12/16 at 19:15 Divalproex Sodium (Depakote) 250 mg BID PO Last administered on 09/20/16 08:38 ; Start 09/12/16 at 21:00; Stop 09/20/16 at 10:41; Status DC Lorazepam (Ativan) 0.5 mg PRN BID PRN PO ANXIETY / AGITATION Last administered on 10/07/16 19:22; Start 09/12/16 at 19:45; Stop 10/07/16 at 20:59; Status DC Lorazepam (Ativan) 1 mg BID PO Last administered on 09/17/16 08:49; Start 02/19 at 21:00; Stop 09/17/16 at 18:05; Status DC Selegiline HCl (Emsam) 1 patch DAILY TD ; Start 09/13/16 at 09:00; Stop at 18:35; Status DC Buspirone HCl (Buspar) 7.5 mg BID PO Last administered on 09/27/16 09:12; Start 09/12/16 at 21:00; Stop 09/27/16 at 10:31; Status DC Amiodarone HCl (Cordarone) 100 mg DAILY PO Last administered on 10/09/16 09:02 ; Start 09/13/16 at 09:00 Aspirin (Children'S Aspirin) 81 mg DAILY PO Last administered on 10/09/16 09:00 ; Start 09/13/16 at 09:00 Famotidine (Pepcid) 20 mg DAILY PO Last administered on 10/09/16 09:01; Start 09/13/16 at 09:00 Lisinopril (Prinivil) 5 mg DAILY PO Last administered on 10/09/16 09:01; Start 09/13/16 at 09:00 Loperamide HCl (Imodium) 2 mg PRN Q4HRS PRN PO DIARRHEA; Start 09/12/16 at 19: 45 Tamsulosin HCl (Flomax) 0.4 mg DAILY PO Last administered on 10/09/16 09:01; Start 09/13/16 at 09:00 Warfarin Sodium (Coumadin) 2.5 mg DAILY16 PO Last administered on 09/14/16 16: 05; Start 09/13/16 at 16:00; Stop 09/15/16 at 15:03; Status DC Multivitamins/ Calcium (Thera-M Plus) 1 tab DAILY PO Last administered on 09:01; Start 09/13/16 at 09:00 Warfarin Sodium (Coumadin) 2 mg DAILY16 PO Last administered on 09/14/16 16:06 ; Start 09/13/16 at 16:00; Stop 09/15/16 at 15:02; Status DC Warfarin Sodium (Coumadin Per Pharmacy) 1 each PRN DAILY PRN MC SEE COMMENTS Last administered on 10/09/16 15:45; Start 09/13/16 at 03:15 Vitamin D (Vitamin D3) 50,000 unit WEEKLY PO Last administered on 10/05/16 08: 57; Start 09/14/16 at 09:00 Selegiline HCl (Eldepryl) 5 mg DAILY PO Last administered on 10/07/16 09:39; Start 09/14/16 at 09:00; Stop 10/07/16 at 20:59; Status DC Trazodone HCl (Desyrel) 50 mg PRN QHS PRN PO INSOMNIA, MAY REPEAT X1 Last administered on 10/08/16 23:18; Start 09/14/16 at 19:15 Nystatin (Nystop) 1 wilfredo BID TP Last administered on 10/09/16 09:00; Start 09/15 at 09:00 Nystatin (Nystop) 30 wilfredo STK-MED ONCE TP Last administered on 09/14/16 21:27; Start 09/14/16 at 21:27; Stop 09/14/16 at 21:28; Status DC Warfarin Sodium (Coumadin) 3 mg 1X WARF ONCE PO Last administered on 15:48; Start 09/15/16 at 16:00; Stop 09/15/16 at 16:01; Status DC Warfarin Sodium (Coumadin) 2.5 mg 1X ONCE PO Last administered on 09/15/16 15 :47; Start 09/15/16 at 15:15; Stop 09/15/16 at 15:17; Status DC Warfarin Sodium (Coumadin) 5 mg 1X WARF ONCE PO Last administered on 18:16; Start 09/16/16 at 16:00; Stop 09/16/16 at 16:01; Status DC Warfarin Sodium (Coumadin) 2 mg 1X WARF ONCE PO Last administered on 16:02; Start 09/17/16 at 16:00; Stop 09/17/16 at 16:01; Status DC Warfarin Sodium (Coumadin) 2.5 mg 1X WARF ONCE PO Last administered on 16:03; Start 09/17/16 at 16:00; Stop 09/17/16 at 16:01; Status DC Lorazepam (Ativan) 0.5 mg TID PO Last administered on 09/20/16 20:45; Start at 21:00; Stop 09/20/16 at 21:00; Status DC Lorazepam (Ativan) 0.5 mg BID PO Last administered on 09/24/16 19:38; Start at 09:00; Stop 09/24/16 at 21:01; Status DC Lorazepam (Ativan) 0.5 mg DAILY PO Last administered on 09/27/16 09:15; Start 09/25/16 at 09:00; Stop 09/27/16 at 10:39; Status DC Warfarin Sodium (Coumadin) 2.5 mg 1X WARF ONCE PO Last administered on 14:58; Start 09/18/16 at 16:00; Stop 09/18/16 at 16:01; Status DC Warfarin Sodium (Coumadin) 2 mg 1X WARF ONCE PO Last administered on 14:59; Start 09/18/16 at 16:00; Stop 09/18/16 at 16:01; Status DC Sertraline HCl (Zoloft) 25 mg DAILY PO Last administered on 09/24/16 07:43; Start 09/19/16 at 09:00; Stop 09/24/16 at 18:00; Status DC Warfarin Sodium (Coumadin - No Dose Today) 1 each 1X WARF ONCE MC Last administered on 09/19/16 14:14; Start 09/19/16 at 16:00; Stop 09/19/16 at 16:02 ; Status DC Quetiapine Fumarate (SEROquel) 25 mg QHS PO Last administered on 10/03/16 19: 12; Start 09/20/16 at 21:00; Stop 10/04/16 at 10:51; Status DC Warfarin Sodium (Coumadin) 2.5 mg 1X WARF ONCE PO Last administered on 16:31; Start 09/20/16 at 16:00; Stop 09/20/16 at 16:01; Status DC Valproic Acid (Depakene) 250 mg BID PO Last administered on 09/25/16 09:29; Start 09/20/16 at 21:00; Stop 09/25/16 at 18:06; Status DC Warfarin Sodium (Coumadin) 2.5 mg 1X WARF ONCE PO Last administered on 16:02; Start 09/21/16 at 16:00; Stop 09/21/16 at 16:01; Status DC Warfarin Sodium (Coumadin) 1 mg 1X WARF ONCE PO Last administered on 16:02; Start 09/21/16 at 16:00; Stop 09/21/16 at 16:01; Status DC Mirtazapine (Remeron) 7.5 mg QHS PO Last administered on 09/26/16 19:21; Start 09/21/16 at 21:00; Stop 09/27/16 at 10:31; Status DC Warfarin Sodium (Coumadin) 4 mg 1X WARF ONCE PO Last administered on 16:31; Start 09/22/16 at 16:00; Stop 09/22/16 at 16:01; Status DC Warfarin Sodium (Coumadin) 4 mg 1X WARF ONCE PO Last administered on 15:42; Start 09/23/16 at 16:00; Stop 09/23/16 at 16:01; Status DC Warfarin Sodium (Coumadin) 4 mg DAILY16 PO Last administered on 09/25/16 16:00 ; Start 09/24/16 at 16:00; Stop 09/26/16 at 08:25; Status DC Sertraline HCl (Zoloft) 50 mg DAILY PO Last administered on 10/03/16 08:52; Start 09/25/16 at 09:00; Stop 10/03/16 at 14:04; Status DC Valproic Acid (Depakene) 375 mg BID PO Last administered on 10/03/16 08:53; Start 09/25/16 at 21:00; Stop 10/03/16 at 18:33; Status DC Warfarin Sodium (Coumadin) 2 mg DAILY16 PO Last administered on 10/08/16 16:21 ; Start 09/26/16 at 16:00; Stop 10/08/16 at 16:53; Status DC Warfarin Sodium (Coumadin) 2.5 mg DAILY16 PO Last administered on 10/08/16 16: 21; Start 09/26/16 at 16:00; Stop 10/08/16 at 16:53; Status DC Quetiapine Fumarate (SEROquel) 12.5 mg BID92 PO Last administered on 09/30/16 13:36; Start 09/27/16 at 09:00; Stop 09/30/16 at 22:00; Status DC Buspirone HCl (Buspar) 10 mg TID PO Last administered on 10/09/16 13:06; Start 09/27/16 at 14:00 Mirtazapine (Remeron) 15 mg QHS PO Last administered on 10/08/16 19:42; Start 09/27/16 at 21:00 Lorazepam (Ativan) 0.5 mg DAILY PO Last administered on 10/09/16 09:00; Start 09/28/16 at 09:00 Quetiapine Fumarate (SEROquel) 12.5 mg 0900,1400,1700 PO Last administered on 08:52; Start 10/01/16 at 09:00; Stop 10/03/16 at 14:04; Status DC Olanzapine (ZyPREXA ZYDIS) 2.5 mg PRN Q2HR PRN PO PSYCHOSIS Last administered on 10/03/16 11:54; Start 10/03/16 at 10:00 Quetiapine Fumarate (SEROquel) 25 mg 0900,1400,1700 PO Last administered on 10/04 10:01; Start 10/03/16 at 17:00; Stop 10/04/16 at 10:51; Status DC Hydroxyzine HCl (Atarax) 50 mg PRN Q2HR PRN PO ANXIETY / AGITATION Last administered on 10/06/16 11:50; Start 10/03/16 at 14:15 Valproic Acid (Depakene) 500 mg BID PO Last administered on 10/09/16 09:01; Start 10/03/16 at 21:00 Risperidone (RisperDAL) 0.25 mg BID PO Last administered on 10/09/16 09:01; Start 10/04/16 at 21:00; Stop 10/09/16 at 18:21; Status DC Levothyroxine Sodium (Synthroid) 12.5 mcg DAILY06 PO Last administered on 05:23; Start 10/07/16 at 06:00 Lorazepam (Ativan) 0.25 mg PRN Q2HR PRN PO ANXIETY / AGITATION; Start 10/07/16 at 21:15 Risperidone (RisperDAL) 0.375 mg DAILY PO ; Start 10/10/16 at 09:00 Risperidone (RisperDAL) 0.25 mg QHS PO ; Start 10/09/16 at 21:00 Active Scripts Active Reported Therems-M (Multivits,Th W-Fe,Other Min) 1 Each Tablet 1 Each PO DAILY Tamsulosin Hcl 0.4 Mg Cap.er.24h 0.4 Mg PO DAILY Lisinopril 5 Mg Tablet 5 Mg PO DAILY Famotidine 20 Mg Tablet 20 Mg PO DAILY Emsam (Selegiline) 1 Each Patch.td24 1 Each TD DAILY Aspirin 81 Mg Tab.chew 81 Mg PO DAILY Amiodarone Hcl 200 Mg Tablet 100 Mg PO DAILY Depakote (Divalproex Sodium) 250 Mg Tablet.dr 250 Mg PO BID Coumadin (Warfarin Sodium) 4 Mg Tablet 4.5 Mg PO DAILY Ativan (Lorazepam) 0.5 Mg Tablet 0.5 Mg PO PRN BID PRN Imodium A-D (Loperamide HCl) 2 Mg Capsule 2 Mg PO PRN PRN MDD 12 mg Ativan (Lorazepam) 1 Mg Tablet 1 Mg PO BID Buspirone Hcl 7.5 Mg Tablet 7.5 Mg PO BID Diagnosis: Problems: (1) Dementia (2) Anxiety disorder (3) Impulse control disorder (4) Dementia, vascular, with depression (5) Dementia, vascular, with delusions (6) Dementia in Alzheimer's disease with depression (7) Dementia in Alzheimer's disease with delusions LINDSAY BROWN MD Oct 09, 2016 20:29
[2016-10-09] MEDS: LORazepam 0.5 MG TABLET PO PRN (20:38)
[2016-10-09] MEDS: MIRTAZAPINE 15 MG TABLET PO SCH (20:38)
--- NOTE | 2016-10-09 20:45 | NUR ---
Pt wandering and pacing in the hallway at shift change. Pt then began to bang on doors and windows to the nurse's station. Pt yelling, "where is she", "I know you're hiding her in there", "she better be back out here in 30 minutes!" Several attempts to redirect pt were unsuccessful. Attempted to give PRN Ativan several times, however pt resistive and suspicious of staff and medications. Pt secured in [facility] in order to de-escalate his agitation. Pt then allowed to return to day room with the other patients once he had calmed down. Pt was then re-approached with medications hidden in cranberry juice. PRN Ativan also administered at this time.
--- NOTE | 2016-10-10 01:11 | NUR ---
Behavior Intervention Response and Plan: BIRP Note: Behavior: Assumed Care of patient, patient located in Hallway at shift change. Patient exhibited the following behavior Demanding, Agitated, Delusions. Brief assessment on rounds of vital signs, medication needs, lab studies, and pain. Treatment plan problems 1 and 2. Intervention: Patient assessed and the following interventions initiated safety checks 15 Minute Checks Cognitive Assessment , Head to toe Assessment , Medications. Response: After interactions and interventions patient responded in the following manner, Restless , Irritable ,Non Compliant. Continue to assess behaviors and condition will continue to monitor throughout the shift as needed. Plan: Continue to monitor Master Treatment Plan for patient's progress toward short term goals of Decreased Agitation, Decreased Aggression, [facility] goals to return to previous living setting vs placement. Continue to assess patient for changes in above assessment. Monitor for medication needs, pain, and safety concerns. Hourly rounding performed to ensure safe environment.
[2016-10-10] MEDS: LEVOTHYROXINE 25 MCG TABLET. PO SCH (05:05)
[2016-10-10] MEDS: LORazepam 0.5 MG TABLET PO PRN (05:05)
--- NOTE | 2016-10-10 05:15 | NUR ---
Nursing Note: Pt anxious this morning during rounds, asking for and thought this nurse was his , wanting to know when she was coming to bed. Attempted to re-orient and redirect pt without success. PRN Ativan administered in apple juice.
[2016-10-10 06:16] VITALS: BP 120/67
[2016-10-10] MEDS: ASPIRIN 81 MG TAB.CHEW PO SCH (07:22)
[2016-10-10] MEDS: FAMOTIDINE 20 MG TABLET PO SCH (07:22)
[2016-10-10] MEDS: TAMSULOSIN 0.4 MG CAP.ER.24H. PO SCH (07:22)
[2016-10-10] MEDS: LORazepam 0.5 MG TABLET PO SCH (07:22)
[2016-10-10] MEDS: MULTIVITAMIN with MINERAL TABLET. PO SCH (07:22)
[2016-10-10] MEDS: AMIODARONE HCL 200 MG TABLET PO SCH (07:23)
[2016-10-10] MEDS: busPIRone 10 MG TABLET. PO SCH ×3 (07:23→19:02)
[2016-10-10] MEDS: VALPROATE ACID 250 MG/5 ML ORAL SOLUTION PO SCH ×2 (07:23→19:02)
[2016-10-10] MEDS: LISINOPRIL 5 MG TABLET. PO SCH (07:24)
[2016-10-10] MEDS: risperiDONE 0.25 MG TABLET. PO SCH ×2 (07:26→19:02)
--- NOTE | 2016-10-10 07:42 | NUR ---
Pharmacy Warfarin Dosing Note S:Pharmacy consulted to assist with anticoagulation therapy started 09/13/16 with target INR: 2 -3 O:ABBEY MATHIS is a 76 year old M with Stroke LABS: Last INR: 3.4 Last HGB: 11.5 Last HCT: 34.5 Last PLT: 143 Last dose of Hold given on 10/09/16 at 1600 Previous Regimen: 4.5MG DAILY HOME DOSE Vitamin K given: N Drug Interaction Changes: Same Interacting Drug Ongoing Drug Interactions: AMIODARONE A:INR Above desired Range. Target Range for this patient is: 2 -3 P: Warfarin dose: Hold Coumadin dose today. Bridge Therapy: None Next INR due 10/12/11 Pharmacy anticoagulation service will continue to follow. CHAYO ACEVEDO [facility] 10/10/16 0735
[2016-10-10] MEDS: LORazepam 2 MG/ML VIAL IM SCH (07:59)
[2016-10-10] MEDS: HALOPERIDOL LACT 5 MG/ML VIAL. IM SCH (08:00)
--- NOTE | 2016-10-10 08:02 | NUR ---
Patient became highly agitated this morning and began to bang on the doors, windows, and demanded to leave. He remains delusional and believed the telephone would eplode in his ear. He maintains that he is in an experiment and that his has left him and is cheating on him. Patient was offered morning medication in [facility] and he told this RN to "eat that shit." He refused to take medication. He continued to punch the door and demanded to leave. was paged and scheduled Haldol/Ativan IM administered to left deltoid. 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 Will continue on 15 minute safety checks.
--- NOTE | 2016-10-10 08:09 | PN ---
DATE: 10/08/2016 This is a late entry for 10/08/2016 and covers elements not covered in my initial note. SUBJECTIVE: Per nursing report, the patient remains confused, somewhat delusional. He had a difficult night, slept just 4 hours, was in the [place], from the others, took his meds at 11:30. He has done better during the day on 10/08/2016, compliant with his medications as well. Certainly confused. As I met with him, he again asked me he did not know why he was here and I repeated the circumstances, he was accepting of this, "I need help with my memory." REVIEW OF SYSTEMS: No CV, , eye, ENT or pulmonary system symptoms on review. MENTAL STATUS EXAM: Oriented to himself. Insight, judgment, recent memory is impaired. Language function intact. Attention span short. Mood and affect somewhat anxious, labile at times, but improved. LABORATORY DATA: Reviewed. IMPRESSION: Major neurocognitive disorder, Alzheimer, vascular with depression, delusion and behavioral disturbance. Rest unchanged. PLAN: Continue current psychotropics. Valproic acid level is therapeutic. List of his psychotropics mentioned in my initial note. MAN Phoenix BROWN MD DR: JEREL/tavo JOB#: [id number] / [id number]
[2016-10-10] MEDS: NYSTATIN TOPICAL POWDER 30GM BOTTLE. TP SCH ×2 (09:00→19:02)
--- NOTE | 2016-10-10 09:51 | NUR ---
staff saved pt ronaldo. Addendum: 10/10/16 at 0952 by ROSA ISELA MEJIA CNA Amended: Links added.
--- NOTE | 2016-10-10 10:15 | NUR ---
THERAPEUTIC RECREATION GROUP NOTE TITLE :Balloon Bop with Noodles ACTIVITY : Activities and Games GOAL : Increase socialization and alertness. Maintain/improve mental and physical functioning. DURATION : 60 Minutes RESPONSE : No participation.
[2016-10-10 15:55] VITALS: BP 158/90
[2016-10-10] MEDS: MIRTAZAPINE 15 MG TABLET PO SCH (19:02)
--- NOTE | 2016-10-10 19:53 | PDOC ---
Exam Blake Demential Exam: Blake Note: Please also refer to the separate dictated note~for this date of service dictated separately.~Patient seen individually. Discussed the patient with Nursing staff reviewed the chart.~Reviewed interim history and current functioning. Reviewed vital signs,~Labs/ Radiology~and current medications noted below. Continue current treatment with the changes noted in the dictated addendum note Assessment: Vital Signs: Vital Signs Date Time Temp Pulse Resp B/P (MAP) Pulse Ox O2 Delivery O2 Flow Rate FiO2 10/10/16 15:55 98.8 70 18 158/90 (112) 96 10/09/16 16:31 Room Air 10/07/16 16:24 98.0 I&O Intake and Output 10/10/16 07:00 Intake Total 720 ml Balance 720 ml Intake Oral 480 ml Tube Feeding 240 ml Labs: Laboratory Tests Test 10/10/16 06:40 Prothrombin Time 34.8 SEC (9.4-11.4) H Prothrombin Time INR 3.4 (0.9-1.1) H Current Medications: Meds: Current Medications Acetaminophen (Tylenol) 650 mg PRN Q6HRS PRN PO PAIN / TEMP Last administered on 09/15/16 20:02; Start 09/12/16 at 19:15 Multi-Ingredient Ointment (Analgesic [place]) 1 wilfredo PRN QID PRN TP MUSCLE PAIN; Start 09/12/16 at 19:15 Al Hydroxide/Mg Hydroxide (Mylanta Plus Xs) 15 ml PRN AFTMEALHC PRN PO DYSPEPSIA; Start 09/12/16 at 19:15 Magnesium Hydroxide (Milk Of Magnesia) 2,400 mg PRN QHS PRN PO CONSTIPATION; Start 09/12/16 at 19:15 Divalproex Sodium (Depakote) 250 mg BID PO Last administered on 09/20/16 08:38 ; Start 09/12/16 at 21:00; Stop 09/20/16 at 10:41; Status DC Lorazepam (Ativan) 0.5 mg PRN BID PRN PO ANXIETY / AGITATION Last administered on 10/07/16 19:22; Start 09/12/16 at 19:45; Stop 10/07/16 at 20:59; Status DC Lorazepam (Ativan) 1 mg BID PO Last administered on 09/17/16 08:49; Start 02/19 at 21:00; Stop 09/17/16 at 18:05; Status DC Selegiline HCl (Emsam) 1 patch DAILY TD ; Start 09/13/16 at 09:00; Stop at 18:35; Status DC Buspirone HCl (Buspar) 7.5 mg BID PO Last administered on 09/27/16 09:12; Start 09/12/16 at 21:00; Stop 09/27/16 at 10:31; Status DC Amiodarone HCl (Cordarone) 100 mg DAILY PO Last administered on 10/10/16 07:23 ; Start 09/13/16 at 09:00 Aspirin (Children'S Aspirin) 81 mg DAILY PO Last administered on 10/10/16 07:22 ; Start 09/13/16 at 09:00 Famotidine (Pepcid) 20 mg DAILY PO Last administered on 10/10/16 07:22; Start 09/13/16 at 09:00 Lisinopril (Prinivil) 5 mg DAILY PO Last administered on 10/10/16 07:24; Start 09/13/16 at 09:00 Loperamide HCl (Imodium) 2 mg PRN Q4HRS PRN PO DIARRHEA; Start 09/12/16 at 19: 45 Tamsulosin HCl (Flomax) 0.4 mg DAILY PO Last administered on 10/10/16 07:22; Start 09/13/16 at 09:00 Warfarin Sodium (Coumadin) 2.5 mg DAILY16 PO Last administered on 09/14/16 16: 05; Start 09/13/16 at 16:00; Stop 09/15/16 at 15:03; Status DC Multivitamins/ Calcium (Thera-M Plus) 1 tab DAILY PO Last administered on 07:22; Start 09/13/16 at 09:00 Warfarin Sodium (Coumadin) 2 mg DAILY16 PO Last administered on 09/14/16 16:06 ; Start 09/13/16 at 16:00; Stop 09/15/16 at 15:02; Status DC Warfarin Sodium (Coumadin Per Pharmacy) 1 each PRN DAILY PRN MC SEE COMMENTS Last administered on 10/10/16 07:42; Start 09/13/16 at 03:15 Vitamin D (Vitamin D3) 50,000 unit WEEKLY PO Last administered on 10/05/16 08: 57; Start 09/14/16 at 09:00 Selegiline HCl (Eldepryl) 5 mg DAILY PO Last administered on 10/07/16 09:39; Start 09/14/16 at 09:00; Stop 10/07/16 at 20:59; Status DC Trazodone HCl (Desyrel) 50 mg PRN QHS PRN PO INSOMNIA, MAY REPEAT X1 Last administered on 10/08/16 23:18; Start 09/14/16 at 19:15 Nystatin (Nystop) 1 wilfredo BID TP Last administered on 10/09/16 09:00; Start 09/15 at 09:00 Nystatin (Nystop) 30 wilfredo STK-MED ONCE TP Last administered on 09/14/16 21:27; Start 09/14/16 at 21:27; Stop 09/14/16 at 21:28; Status DC Warfarin Sodium (Coumadin) 3 mg 1X WARF ONCE PO Last administered on 15:48; Start 09/15/16 at 16:00; Stop 09/15/16 at 16:01; Status DC Warfarin Sodium (Coumadin) 2.5 mg 1X ONCE PO Last administered on 09/15/16 15 :47; Start 09/15/16 at 15:15; Stop 09/15/16 at 15:17; Status DC Warfarin Sodium (Coumadin) 5 mg 1X WARF ONCE PO Last administered on 18:16; Start 09/16/16 at 16:00; Stop 09/16/16 at 16:01; Status DC Warfarin Sodium (Coumadin) 2 mg 1X WARF ONCE PO Last administered on 16:02; Start 09/17/16 at 16:00; Stop 09/17/16 at 16:01; Status DC Warfarin Sodium (Coumadin) 2.5 mg 1X WARF ONCE PO Last administered on 16:03; Start 09/17/16 at 16:00; Stop 09/17/16 at 16:01; Status DC Lorazepam (Ativan) 0.5 mg TID PO Last administered on 09/20/16 20:45; Start at 21:00; Stop 09/20/16 at 21:00; Status DC Lorazepam (Ativan) 0.5 mg BID PO Last administered on 09/24/16 19:38; Start at 09:00; Stop 09/24/16 at 21:01; Status DC Lorazepam (Ativan) 0.5 mg DAILY PO Last administered on 09/27/16 09:15; Start 09/25/16 at 09:00; Stop 09/27/16 at 10:39; Status DC Warfarin Sodium (Coumadin) 2.5 mg 1X WARF ONCE PO Last administered on 14:58; Start 09/18/16 at 16:00; Stop 09/18/16 at 16:01; Status DC Warfarin Sodium (Coumadin) 2 mg 1X WARF ONCE PO Last administered on 14:59; Start 09/18/16 at 16:00; Stop 09/18/16 at 16:01; Status DC Sertraline HCl (Zoloft) 25 mg DAILY PO Last administered on 09/24/16 07:43; Start 09/19/16 at 09:00; Stop 09/24/16 at 18:00; Status DC Warfarin Sodium (Coumadin - No Dose Today) 1 each 1X WARF ONCE MC Last administered on 09/19/16 14:14; Start 09/19/16 at 16:00; Stop 09/19/16 at 16:02 ; Status DC Quetiapine Fumarate (SEROquel) 25 mg QHS PO Last administered on 10/03/16 19: 12; Start 09/20/16 at 21:00; Stop 10/04/16 at 10:51; Status DC Warfarin Sodium (Coumadin) 2.5 mg 1X WARF ONCE PO Last administered on 16:31; Start 09/20/16 at 16:00; Stop 09/20/16 at 16:01; Status DC Valproic Acid (Depakene) 250 mg BID PO Last administered on 09/25/16 09:29; Start 09/20/16 at 21:00; Stop 09/25/16 at 18:06; Status DC Warfarin Sodium (Coumadin) 2.5 mg 1X WARF ONCE PO Last administered on 16:02; Start 09/21/16 at 16:00; Stop 09/21/16 at 16:01; Status DC Warfarin Sodium (Coumadin) 1 mg 1X WARF ONCE PO Last administered on 16:02; Start 09/21/16 at 16:00; Stop 09/21/16 at 16:01; Status DC Mirtazapine (Remeron) 7.5 mg QHS PO Last administered on 09/26/16 19:21; Start 09/21/16 at 21:00; Stop 09/27/16 at 10:31; Status DC Warfarin Sodium (Coumadin) 4 mg 1X WARF ONCE PO Last administered on 16:31; Start 09/22/16 at 16:00; Stop 09/22/16 at 16:01; Status DC Warfarin Sodium (Coumadin) 4 mg 1X WARF ONCE PO Last administered on 15:42; Start 09/23/16 at 16:00; Stop 09/23/16 at 16:01; Status DC Warfarin Sodium (Coumadin) 4 mg DAILY16 PO Last administered on 09/25/16 16:00 ; Start 09/24/16 at 16:00; Stop 09/26/16 at 08:25; Status DC Sertraline HCl (Zoloft) 50 mg DAILY PO Last administered on 10/03/16 08:52; Start 09/25/16 at 09:00; Stop 10/03/16 at 14:04; Status DC Valproic Acid (Depakene) 375 mg BID PO Last administered on 10/03/16 08:53; Start 09/25/16 at 21:00; Stop 10/03/16 at 18:33; Status DC Warfarin Sodium (Coumadin) 2 mg DAILY16 PO Last administered on 10/08/16 16:21 ; Start 09/26/16 at 16:00; Stop 10/08/16 at 16:53; Status DC Warfarin Sodium (Coumadin) 2.5 mg DAILY16 PO Last administered on 10/08/16 16: 21; Start 09/26/16 at 16:00; Stop 10/08/16 at 16:53; Status DC Quetiapine Fumarate (SEROquel) 12.5 mg BID92 PO Last administered on 09/30/16 13:36; Start 09/27/16 at 09:00; Stop 09/30/16 at 22:00; Status DC Buspirone HCl (Buspar) 10 mg TID PO Last administered on 10/10/16 19:02; Start 09/27/16 at 14:00 Mirtazapine (Remeron) 15 mg QHS PO Last administered on 10/10/16 19:02; Start 09/27/16 at 21:00 Lorazepam (Ativan) 0.5 mg DAILY PO Last administered on 10/10/16 07:22; Start 09/28/16 at 09:00 Quetiapine Fumarate (SEROquel) 12.5 mg 0900,1400,1700 PO Last administered on 08:52; Start 10/01/16 at 09:00; Stop 10/03/16 at 14:04; Status DC Olanzapine (ZyPREXA ZYDIS) 2.5 mg PRN Q2HR PRN PO PSYCHOSIS Last administered on 10/03/16 11:54; Start 10/03/16 at 10:00 Quetiapine Fumarate (SEROquel) 25 mg 0900,1400,1700 PO Last administered on 10/04 10:01; Start 10/03/16 at 17:00; Stop 10/04/16 at 10:51; Status DC Hydroxyzine HCl (Atarax) 50 mg PRN Q2HR PRN PO ANXIETY / AGITATION Last administered on 10/06/16 11:50; Start 10/03/16 at 14:15 Valproic Acid (Depakene) 500 mg BID PO Last administered on 10/10/16 19:02; Start 10/03/16 at 21:00 Risperidone (RisperDAL) 0.25 mg BID PO Last administered on 10/09/16 09:01; Start 10/04/16 at 21:00; Stop 10/09/16 at 18:21; Status DC Levothyroxine Sodium (Synthroid) 12.5 mcg DAILY06 PO Last administered on 05:05; Start 10/07/16 at 06:00 Lorazepam (Ativan) 0.25 mg PRN Q2HR PRN PO ANXIETY / AGITATION Last administered on 10/10/16 05:05; Start 10/07/16 at 21:15 Risperidone (RisperDAL) 0.375 mg DAILY PO Last administered on 10/10/16 07:26; Start 10/10/16 at 09:00 Risperidone (RisperDAL) 0.25 mg QHS PO Last administered on 10/10/16 19:02; Start 10/09/16 at 21:00 Warfarin Sodium (Coumadin - No Dose Today) 1 each 1X WARF ONCE MC Last administered on 10/10/16 14:23; Start 10/10/16 at 16:00; Stop 10/10/16 at 16:01; Status DC Haloperidol Lactate (Haldol) 5 mg DAILY IM Last administered on 10/10/16 08:00 ; Start 10/10/16 at 08:00 Lorazepam (Ativan) 0.5 mg DAILY IM Last administered on 10/10/16 07:59; Start 10/10/16 at 08:00 Active Scripts Active Reported Therems-M (Multivits,Th W-Fe,Other Min) 1 Each Tablet 1 Each PO DAILY Tamsulosin Hcl 0.4 Mg Cap.er.24h 0.4 Mg PO DAILY Lisinopril 5 Mg Tablet 5 Mg PO DAILY Famotidine 20 Mg Tablet 20 Mg PO DAILY Emsam (Selegiline) 1 Each Patch.td24 1 Each TD DAILY Aspirin 81 Mg Tab.chew 81 Mg PO DAILY Amiodarone Hcl 200 Mg Tablet 100 Mg PO DAILY Depakote (Divalproex Sodium) 250 Mg Tablet.dr 250 Mg PO BID Coumadin (Warfarin Sodium) 4 Mg Tablet 4.5 Mg PO DAILY Ativan (Lorazepam) 0.5 Mg Tablet 0.5 Mg PO PRN BID PRN Imodium A-D (Loperamide HCl) 2 Mg Capsule 2 Mg PO PRN PRN MDD 12 mg Ativan (Lorazepam) 1 Mg Tablet 1 Mg PO BID Buspirone Hcl 7.5 Mg Tablet 7.5 Mg PO BID Diagnosis: Problems: (1) Dementia (2) Encounter for medical screening examination (3) Anxiety disorder (4) Impulse control disorder (5) Dementia, vascular, with depression (6) Dementia, vascular, with delusions (7) Dementia in Alzheimer's disease with depression (8) Dementia in Alzheimer's disease with delusions LINDSAY BROWN MD Oct 10, 2016 19:53
--- NOTE | 2016-10-10 22:30 | NUR ---
Behavior Intervention Response and Plan: BIRP Note: Behavior: Assumed Care of patient, patient located in Day Room at shift change. Patient exhibited the following behavior Calm, Disorganized, Cooperative. Brief assessment on rounds of vital signs, medication needs, lab studies, and pain. Treatment plan problems 1 and 2. Intervention: Patient assessed and the following interventions initiated safety checks 15 Minute Checks Cognitive Assessment , Head to toe Assessment , Medications. Response: After interactions and interventions patient responded in the following manner, Calm , Compliant ,Cooperative. Continue to assess behaviors and condition will continue to monitor throughout the shift as needed. 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 Continue to assess patient for changes in above assessment. Monitor for medication needs, pain, and safety concerns. Hourly rounding performed to ensure safe environment.
[2016-10-11] MEDS: LEVOTHYROXINE 25 MCG TABLET. PO SCH (05:03)
[2016-10-11 05:57] VITALS: BP 127/81
--- NOTE | 2016-10-11 06:25 | PN ---
DATE: 10/09/2016 PSYCHIATRIC PROGRESS NOTE This is a late entry of 10/09/2016, covers elements not covered in my initial note. 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 He has significant short term memory deficits. REVIEW OF SYSTEMS: No CV, , pulmonary, eye, ENT system symptoms on review. Reliability poor. MENTAL STATUS EXAM: Oriented to himself. Insight, judgment, recent memory is impaired. Remote did better, language function intact, attention span short. Mood and affect is still somewhat anxious, labile. LABORATORY DATA: Reviewed. IMPRESSION: Major neurocognitive disorder, Alzheimer, vascular with depression, delusion, behavioral disturbance; anxiety disorder, unspecified; impulse control disorder, unspecified. PLAN: Continue Ativan 0.5 mg daily, BuSpar is 10 mg t.i.d., Depakene 500 b.i.d., level 60 therapeutic, Ativan p.r.n., trazodone at bedtime p.r.n., Risperdal 0.25 b.i.d. will be increased to 0.375 mg in the morning, 0.25 in the evening, Remeron 15 at bedtime, Atarax, and Zyprexa p.r.n. Adjust further as clinically indicated. LINDSAY BROWN MD DR: JEREL/tavo JOB#: [id number] / [id number]
[2016-10-11] MEDS: VALPROATE ACID 250 MG/5 ML ORAL SOLUTION PO SCH ×2 (08:22→19:29)
[2016-10-11] MEDS: ASPIRIN 81 MG TAB.CHEW PO SCH (08:22)
[2016-10-11] MEDS: TAMSULOSIN 0.4 MG CAP.ER.24H. PO SCH (08:22)
[2016-10-11] MEDS: risperiDONE 0.25 MG TABLET. PO SCH ×2 (08:22→19:29)
[2016-10-11] MEDS: MULTIVITAMIN with MINERAL TABLET. PO SCH (08:23)
[2016-10-11] MEDS: AMIODARONE HCL 200 MG TABLET PO SCH (08:23)
[2016-10-11] MEDS: busPIRone 10 MG TABLET. PO SCH ×3 (08:24→19:29)
[2016-10-11] MEDS: HALOPERIDOL LACT 5 MG/ML VIAL. IM SCH (08:27)
[2016-10-11] MEDS: LORazepam 0.5 MG TABLET PO SCH (08:27)
[2016-10-11] MEDS: LORazepam 2 MG/ML VIAL IM SCH (08:28)
[2016-10-11] MEDS: LISINOPRIL 5 MG TABLET. PO SCH (08:28)
[2016-10-11] MEDS: FAMOTIDINE 20 MG TABLET PO SCH (08:28)
[2016-10-11] MEDS: NYSTATIN TOPICAL POWDER 30GM BOTTLE. TP SCH ×2 (08:29→19:31)
--- NOTE | 2016-10-11 08:36 | NUR ---
Pharmacy Warfarin Dosing Note S:Pharmacy consulted to assist with anticoagulation therapy started 09/13/16 with target INR: 2 -3 O:ABBEY MATHIS is a 76 year old M with Stroke LABS: Last INR: 2.7 Last HGB: 11.5 Last HCT: 34.5 Last PLT: 143 Last dose of Hold given on 10/10/16 at 1600 Previous Regimen: 4.5MG DAILY HOME DOSE Vitamin K given: N Drug Interaction Changes: Same Interacting Drug Ongoing Drug Interactions: AMIODARONE A:INR is in desired Range. Target Range for this patient is: 2 -3 P: Warfarin dose: Give Coumadin 4mg po daily Bridge Therapy: None Next INR due 10/15/16 Pharmacy anticoagulation service will continue to follow. CHAYO ACEVEDO, [facility] 10/11/16 0836
--- NOTE | 2016-10-11 10:07 | NUR ---
Behavior Intervention Response and Plan: BIRP Note: Behavior: Assumed Care of patient, patient located in Patient Room at shift change. Patient exhibited the following behavior Wandering, Exit Seeking, Calm. Brief assessment on rounds of vital signs, medication needs, lab studies, and pain. Treatment plan problems . Intervention: Patient assessed and the following interventions initiated safety checks 15 Minute Checks Medications , Head to toe Assessment , Oral Hydration. Response: After interactions and interventions patient responded in the following manner, Calm , Disorganized ,Delusions. Continue to assess behaviors and condition will continue to monitor throughout the shift as needed. Plan: Continue to monitor Master Treatment Plan for patient's progress toward short term goals of Decreased Agitation, No harm To self/ others, skilled nursing goals to return to previous living setting vs placement. Continue to assess patient for changes in above assessment. Monitor for medication needs, pain, and safety concerns. Hourly rounding performed to ensure safe environment.
--- NOTE | 2016-10-11 15:21 | NUR ---
SW faxed face sheet requesting CARE Assessment as Pt. will likely require new LTC placement upon dc. PAULINE also spoke w/Faith from [facility] regarding male bed availability. PAULINE will fax referral later in week as DC will likely not be ready til later next week.
[2016-10-11] MEDS: WARFARIN 4 MG TABLET. PO SCH (15:29)
[2016-10-11 15:39] VITALS: BP 103/71
--- NOTE | 2016-10-11 16:50 | NUR ---
SAP BASIS worked one on one with Pt. to make an anniversary card for his . Their anniversary is October 12. Pt. needed reminders and clues to what the important of the next day was. He smiled when he said the correct answer. He was agreeable to make a card. He asked SAP BASIS to write the message. He was tearful when talking about his love for his . He said a couple nice sentences and SAP BASIS paraphrased a couple more. He smiled and was appreciative.
[2016-10-11] MEDS: MIRTAZAPINE 15 MG TABLET PO SCH (19:29)
--- NOTE | 2016-10-11 21:22 | PDOC ---
Exam Blake Demential Exam: Blake Note: Please also refer to the separate dictated note~for this date of service dictated separately.~Patient seen individually. Discussed the patient with Nursing staff reviewed the chart.~Reviewed interim history and current functioning. Reviewed vital signs,~Labs/ Radiology~and current medications noted below. Continue current treatment with the changes noted in the dictated addendum note Assessment: Vital Signs: Vital Signs Date Time Temp Pulse Resp B/P (MAP) Pulse Ox O2 Delivery O2 Flow Rate FiO2 10/11/16 15:39 98.1 70 18 103/71 (82) 97 Room Air 10/07/16 16:24 98.0 I&O Intake and Output 10/11/16 07:00 Intake Total 720 ml Balance 720 ml Intake Oral 600 ml Tube Feeding 120 ml Labs: Laboratory Tests Test 10/11/16 06:47 Prothrombin Time 27.5 SEC (9.4-11.4) H Prothrombin Time INR 2.7 (0.9-1.1) H Current Medications: Meds: Current Medications Acetaminophen (Tylenol) 650 mg PRN Q6HRS PRN PO PAIN / TEMP Last administered on 09/15/16 20:02; Start 09/12/16 at 19:15 Multi-Ingredient Ointment (Analgesic [place]) 1 wilfredo PRN QID PRN TP MUSCLE PAIN; Start 09/12/16 at 19:15 Al Hydroxide/Mg Hydroxide (Mylanta Plus Xs) 15 ml PRN AFTMEALHC PRN PO DYSPEPSIA; Start 09/12/16 at 19:15 Magnesium Hydroxide (Milk Of Magnesia) 2,400 mg PRN QHS PRN PO CONSTIPATION; Start 09/12/16 at 19:15 Divalproex Sodium (Depakote) 250 mg BID PO Last administered on 09/20/16 08:38 ; Start 09/12/16 at 21:00; Stop 09/20/16 at 10:41; Status DC Lorazepam (Ativan) 0.5 mg PRN BID PRN PO ANXIETY / AGITATION Last administered on 10/07/16 19:22; Start 09/12/16 at 19:45; Stop 10/07/16 at 20:59; Status DC Lorazepam (Ativan) 1 mg BID PO Last administered on 09/17/16 08:49; Start 02/19 at 21:00; Stop 09/17/16 at 18:05; Status DC Selegiline HCl (Emsam) 1 patch DAILY TD ; Start 09/13/16 at 09:00; Stop at 18:35; Status DC Buspirone HCl (Buspar) 7.5 mg BID PO Last administered on 09/27/16 09:12; Start 09/12/16 at 21:00; Stop 09/27/16 at 10:31; Status DC Amiodarone HCl (Cordarone) 100 mg DAILY PO Last administered on 10/11/16 08:23 ; Start 09/13/16 at 09:00 Aspirin (Children'S Aspirin) 81 mg DAILY PO Last administered on 10/11/16 08:22 ; Start 09/13/16 at 09:00 Famotidine (Pepcid) 20 mg DAILY PO Last administered on 10/11/16 08:28; Start 09/13/16 at 09:00 Lisinopril (Prinivil) 5 mg DAILY PO Last administered on 10/11/16 08:28; Start 09/13/16 at 09:00 Loperamide HCl (Imodium) 2 mg PRN Q4HRS PRN PO DIARRHEA; Start 09/12/16 at 19: 45 Tamsulosin HCl (Flomax) 0.4 mg DAILY PO Last administered on 10/11/16 08:22; Start 09/13/16 at 09:00 Warfarin Sodium (Coumadin) 2.5 mg DAILY16 PO Last administered on 09/14/16 16: 05; Start 09/13/16 at 16:00; Stop 09/15/16 at 15:03; Status DC Multivitamins/ Calcium (Thera-M Plus) 1 tab DAILY PO Last administered on 08:23; Start 09/13/16 at 09:00 Warfarin Sodium (Coumadin) 2 mg DAILY16 PO Last administered on 09/14/16 16:06 ; Start 09/13/16 at 16:00; Stop 09/15/16 at 15:02; Status DC Warfarin Sodium (Coumadin Per Pharmacy) 1 each PRN DAILY PRN MC SEE COMMENTS Last administered on 10/11/16 08:36; Start 09/13/16 at 03:15 Vitamin D (Vitamin D3) 50,000 unit WEEKLY PO Last administered on 10/05/16 08: 57; Start 09/14/16 at 09:00 Selegiline HCl (Eldepryl) 5 mg DAILY PO Last administered on 10/07/16 09:39; Start 09/14/16 at 09:00; Stop 10/07/16 at 20:59; Status DC Trazodone HCl (Desyrel) 50 mg PRN QHS PRN PO INSOMNIA, MAY REPEAT X1 Last administered on 10/08/16 23:18; Start 09/14/16 at 19:15 Nystatin (Nystop) 1 wilfredo BID TP Last administered on 10/11/16 08:29; Start 09/15 at 09:00 Nystatin (Nystop) 30 wilfredo STK-MED ONCE TP Last administered on 09/14/16 21:27; Start 09/14/16 at 21:27; Stop 09/14/16 at 21:28; Status DC Warfarin Sodium (Coumadin) 3 mg 1X WARF ONCE PO Last administered on 15:48; Start 09/15/16 at 16:00; Stop 09/15/16 at 16:01; Status DC Warfarin Sodium (Coumadin) 2.5 mg 1X ONCE PO Last administered on 09/15/16 15 :47; Start 09/15/16 at 15:15; Stop 09/15/16 at 15:17; Status DC Warfarin Sodium (Coumadin) 5 mg 1X WARF ONCE PO Last administered on 18:16; Start 09/16/16 at 16:00; Stop 09/16/16 at 16:01; Status DC Warfarin Sodium (Coumadin) 2 mg 1X WARF ONCE PO Last administered on 16:02; Start 09/17/16 at 16:00; Stop 09/17/16 at 16:01; Status DC Warfarin Sodium (Coumadin) 2.5 mg 1X WARF ONCE PO Last administered on 16:03; Start 09/17/16 at 16:00; Stop 09/17/16 at 16:01; Status DC Lorazepam (Ativan) 0.5 mg TID PO Last administered on 09/20/16 20:45; Start at 21:00; Stop 09/20/16 at 21:00; Status DC Lorazepam (Ativan) 0.5 mg BID PO Last administered on 09/24/16 19:38; Start at 09:00; Stop 09/24/16 at 21:01; Status DC Lorazepam (Ativan) 0.5 mg DAILY PO Last administered on 09/27/16 09:15; Start 09/25/16 at 09:00; Stop 09/27/16 at 10:39; Status DC Warfarin Sodium (Coumadin) 2.5 mg 1X WARF ONCE PO Last administered on 14:58; Start 09/18/16 at 16:00; Stop 09/18/16 at 16:01; Status DC Warfarin Sodium (Coumadin) 2 mg 1X WARF ONCE PO Last administered on 14:59; Start 09/18/16 at 16:00; Stop 09/18/16 at 16:01; Status DC Sertraline HCl (Zoloft) 25 mg DAILY PO Last administered on 09/24/16 07:43; Start 09/19/16 at 09:00; Stop 09/24/16 at 18:00; Status DC Warfarin Sodium (Coumadin - No Dose Today) 1 each 1X WARF ONCE MC Last administered on 09/19/16 14:14; Start 09/19/16 at 16:00; Stop 09/19/16 at 16:02 ; Status DC Quetiapine Fumarate (SEROquel) 25 mg QHS PO Last administered on 10/03/16 19: 12; Start 09/20/16 at 21:00; Stop 10/04/16 at 10:51; Status DC Warfarin Sodium (Coumadin) 2.5 mg 1X WARF ONCE PO Last administered on 16:31; Start 09/20/16 at 16:00; Stop 09/20/16 at 16:01; Status DC Valproic Acid (Depakene) 250 mg BID PO Last administered on 09/25/16 09:29; Start 09/20/16 at 21:00; Stop 09/25/16 at 18:06; Status DC Warfarin Sodium (Coumadin) 2.5 mg 1X WARF ONCE PO Last administered on 16:02; Start 09/21/16 at 16:00; Stop 09/21/16 at 16:01; Status DC Warfarin Sodium (Coumadin) 1 mg 1X WARF ONCE PO Last administered on 16:02; Start 09/21/16 at 16:00; Stop 09/21/16 at 16:01; Status DC Mirtazapine (Remeron) 7.5 mg QHS PO Last administered on 09/26/16 19:21; Start 09/21/16 at 21:00; Stop 09/27/16 at 10:31; Status DC Warfarin Sodium (Coumadin) 4 mg 1X WARF ONCE PO Last administered on 16:31; Start 09/22/16 at 16:00; Stop 09/22/16 at 16:01; Status DC Warfarin Sodium (Coumadin) 4 mg 1X WARF ONCE PO Last administered on 15:42; Start 09/23/16 at 16:00; Stop 09/23/16 at 16:01; Status DC Warfarin Sodium (Coumadin) 4 mg DAILY16 PO Last administered on 09/25/16 16:00 ; Start 09/24/16 at 16:00; Stop 09/26/16 at 08:25; Status DC Sertraline HCl (Zoloft) 50 mg DAILY PO Last administered on 10/03/16 08:52; Start 09/25/16 at 09:00; Stop 10/03/16 at 14:04; Status DC Valproic Acid (Depakene) 375 mg BID PO Last administered on 10/03/16 08:53; Start 09/25/16 at 21:00; Stop 10/03/16 at 18:33; Status DC Warfarin Sodium (Coumadin) 2 mg DAILY16 PO Last administered on 10/08/16 16:21 ; Start 09/26/16 at 16:00; Stop 10/08/16 at 16:53; Status DC Warfarin Sodium (Coumadin) 2.5 mg DAILY16 PO Last administered on 10/08/16 16: 21; Start 09/26/16 at 16:00; Stop 10/08/16 at 16:53; Status DC Quetiapine Fumarate (SEROquel) 12.5 mg BID92 PO Last administered on 09/30/16 13:36; Start 09/27/16 at 09:00; Stop 09/30/16 at 22:00; Status DC Buspirone HCl (Buspar) 10 mg TID PO Last administered on 10/11/16 19:29; Start 09/27/16 at 14:00 Mirtazapine (Remeron) 15 mg QHS PO Last administered on 10/11/16 19:29; Start 09/27/16 at 21:00 Lorazepam (Ativan) 0.5 mg DAILY PO Last administered on 10/11/16 08:27; Start 09/28/16 at 09:00 Quetiapine Fumarate (SEROquel) 12.5 mg 0900,1400,1700 PO Last administered on 08:52; Start 10/01/16 at 09:00; Stop 10/03/16 at 14:04; Status DC Olanzapine (ZyPREXA ZYDIS) 2.5 mg PRN Q2HR PRN PO PSYCHOSIS Last administered on 10/03/16 11:54; Start 10/03/16 at 10:00 Quetiapine Fumarate (SEROquel) 25 mg 0900,1400,1700 PO Last administered on 10/04 10:01; Start 10/03/16 at 17:00; Stop 10/04/16 at 10:51; Status DC Hydroxyzine HCl (Atarax) 50 mg PRN Q2HR PRN PO ANXIETY / AGITATION Last administered on 10/06/16 11:50; Start 10/03/16 at 14:15 Valproic Acid (Depakene) 500 mg BID PO Last administered on 10/11/16 19:29; Start 10/03/16 at 21:00 Risperidone (RisperDAL) 0.25 mg BID PO Last administered on 10/09/16 09:01; Start 10/04/16 at 21:00; Stop 10/09/16 at 18:21; Status DC Levothyroxine Sodium (Synthroid) 12.5 mcg DAILY06 PO Last administered on 05:03; Start 10/07/16 at 06:00 Lorazepam (Ativan) 0.25 mg PRN Q2HR PRN PO ANXIETY / AGITATION Last administered on 10/10/16 05:05; Start 10/07/16 at 21:15 Risperidone (RisperDAL) 0.375 mg DAILY PO Last administered on 10/11/16 08:22; Start 10/10/16 at 09:00 Risperidone (RisperDAL) 0.25 mg QHS PO Last administered on 10/11/16 19:29; Start 10/09/16 at 21:00 Warfarin Sodium (Coumadin - No Dose Today) 1 each 1X WARF ONCE MC Last administered on 10/10/16 14:23; Start 10/10/16 at 16:00; Stop 10/10/16 at 16:01; Status DC Haloperidol Lactate (Haldol) 5 mg DAILY IM Last administered on 10/11/16 08:27 ; Start 10/10/16 at 08:00 Lorazepam (Ativan) 0.5 mg DAILY IM Last administered on 10/11/16 08:28; Start 10/10/16 at 08:00 Warfarin Sodium (Coumadin) 4 mg DAILY16 PO Last administered on 10/11/16 15:29 ; Start 10/11/16 at 16:00 Fluvoxamine Maleate (Luvox) 25 mg HS PO Last administered on 10/11/16 19:31; Start 10/11/16 at 21:00 Active Scripts Active Reported Therems-M (Multivits,Th W-Fe,Other Min) 1 Each Tablet 1 Each PO DAILY Tamsulosin Hcl 0.4 Mg Cap.er.24h 0.4 Mg PO DAILY Lisinopril 5 Mg Tablet 5 Mg PO DAILY Famotidine 20 Mg Tablet 20 Mg PO DAILY Emsam (Selegiline) 1 Each Patch.td24 1 Each TD DAILY Aspirin 81 Mg Tab.chew 81 Mg PO DAILY Amiodarone Hcl 200 Mg Tablet 100 Mg PO DAILY Depakote (Divalproex Sodium) 250 Mg Tablet.dr 250 Mg PO BID Coumadin (Warfarin Sodium) 4 Mg Tablet 4.5 Mg PO DAILY Ativan (Lorazepam) 0.5 Mg Tablet 0.5 Mg PO PRN BID PRN Imodium A-D (Loperamide HCl) 2 Mg Capsule 2 Mg PO PRN PRN MDD 12 mg Ativan (Lorazepam) 1 Mg Tablet 1 Mg PO BID Buspirone Hcl 7.5 Mg Tablet 7.5 Mg PO BID Diagnosis: Problems: (1) Dementia (2) Encounter for medical screening examination (3) Anxiety disorder (4) Impulse control disorder (5) Dementia, vascular, with depression (6) Dementia, vascular, with delusions (7) Dementia in Alzheimer's disease with depression (8) Dementia in Alzheimer's disease with delusions LINDSAY BROWN MD Oct 11, 2016 21:22
--- NOTE | 2016-10-12 03:51 | NUR ---
Behavior Intervention Response and Plan: BIRP Note: Behavior: Assumed Care of patient, patient located in Day Room at shift change. Patient exhibited the following behavior Wandering, Restless, Disorganized. Brief assessment on rounds of vital signs, medication needs, lab studies, and pain. Treatment plan problems Dementia with BD and fall Risk. Intervention: Patient assessed and the following interventions initiated safety checks 15 Minute Checks Cognitive Assessment , Head to toe Assessment , Medications. Response: After interactions and interventions patient responded in the following manner, Calm , Disorganized ,Compliant. Continue to assess behaviors and condition will continue to monitor throughout the shift as needed. Plan: Continue to monitor Master Treatment Plan for patient's progress toward short term goals of Medication Compliance, Decreased Agitation, fpc goals to return to previous living setting vs placement. Continue to assess patient for changes in above assessment. Monitor for medication needs, pain, and safety concerns. Hourly rounding performed to ensure safe environment.
[2016-10-12] MEDS: LEVOTHYROXINE 25 MCG TABLET. PO SCH ×2 (05:46→05:56)
[2016-10-12 06:37] VITALS: BP 138/80
[2016-10-12 07:14] LABS: ALBUMIN 3.3 g/dL (3.4-5.0); ALBUMIN/GLOBULIN RATIO 0.9 (1.0-1.7); ALK PHOS 50 U/L (46-116); ALT (SGPT) 19 U/L (16-63); ANION GAP 9 (6-14); AST (SGOT) 21 U/L (15-37); BLOOD UREA NITROGEN 28 mg/dL (8-26); BUN/CREATININE RATIO 25 (6-20); CALCIUM 8.6 mg/dL (8.5-10.1); CARBON DIOXIDE 27 mmol/L (21-32); CHLORIDE 108 mmol/L (98-107); CREATININE 1.1 mg/dL (0.7-1.3); GFR 65.4; GLUCOSE 88 mg/dL (70-99); POTASSIUM 4.1 mmol/L (3.5-5.1); SODIUM 144 mmol/L (136-145); TOTAL BILIRUBIN 0.8 mg/dL (0.2-1.0); TOTAL PROTEIN 6.9 g/dL (6.4-8.2)
[2016-10-12 07:17] LABS: VAL ACID 46 mcg/mL (50-100)
[2016-10-12 07:18] LABS: HEMATOCRIT 34.9 % (39.0-53.0); HEMOGLOBIN 11.6 g/dL (13.0-17.5); RED BLOOD COUNT 3.96 x10^6/uL (4.30-5.70); RED CELL DISTRIBUTION WIDTH 15.1 % (11.5-14.5); WHITE BLOOD COUNT 5.2 x10^3/uL (4.0-11.0)
[2016-10-12] MEDS: VALPROATE ACID 250 MG/5 ML ORAL SOLUTION PO SCH ×2 (08:22→20:09)
[2016-10-12] MEDS: busPIRone 10 MG TABLET. PO SCH ×3 (08:22→20:08)
[2016-10-12] MEDS: FAMOTIDINE 20 MG TABLET PO SCH (08:22)
[2016-10-12] MEDS: MULTIVITAMIN with MINERAL TABLET. PO SCH (08:22)
[2016-10-12] MEDS: LISINOPRIL 5 MG TABLET. PO SCH (08:23)
[2016-10-12] MEDS: risperiDONE 0.25 MG TABLET. PO SCH ×2 (08:23→20:08)
[2016-10-12] MEDS: TAMSULOSIN 0.4 MG CAP.ER.24H. PO SCH (08:24)
[2016-10-12] MEDS: ASPIRIN 81 MG TAB.CHEW PO SCH (08:24)
[2016-10-12] MEDS: AMIODARONE HCL 200 MG TABLET PO SCH (08:25)
[2016-10-12] MEDS: NYSTATIN TOPICAL POWDER 30GM BOTTLE. TP SCH ×2 (08:42→20:09)
[2016-10-12] MEDS: HALOPERIDOL LACT 5 MG/ML VIAL. IM SCH (08:42)
[2016-10-12] MEDS: LORazepam 2 MG/ML VIAL IM SCH (08:43)
[2016-10-12] MEDS: LORazepam 0.5 MG TABLET PO SCH (09:00)
[2016-10-12] MEDS: CHOLECALCIFEROL (VITAMIN D3) 50,000 UNIT CAPSULE PO SCH (09:45)
--- NOTE | 2016-10-12 10:00 | NUR ---
Behavior Intervention Response and Plan: BIRP Note: Behavior: Assumed Care of patient, patient located in Day Room at shift change. Patient exhibited the following behavior Calm, Disorganized, Compliant. Brief assessment on rounds of vital signs, medication needs, lab studies, and pain. Treatment plan problems . Intervention: Patient assessed and the following interventions initiated safety checks 15 Minute Checks Call greenwood in reach , Medications , Personal Alarm in place. Response: After interactions and interventions patient responded in the following manner, Calm , Disorganized ,Compliant. Continue to assess behaviors and condition will continue to monitor throughout the shift as needed. Plan: Continue to monitor Master Treatment Plan for patient's progress toward short term goals of Decreased Agitation, Decreased Anxiety, retirement goals to return to previous living setting vs placement. Continue to assess patient for changes in above assessment. Monitor for medication needs, pain, and safety concerns. Hourly rounding performed to ensure safe environment.
--- NOTE | 2016-10-12 13:38 | NUR ---
CARE Assessment completed for possible placement to [facility].
--- NOTE | 2016-10-12 14:00 | NUR ---
THERAPEUTIC RECREATION GROUP NOTE TITLE :Movie ACTIVITY : Activities and Games GOAL : Increase alertness/focus, decrease stress DURATION : 90 Minutes RESPONSE : No participation.
[2016-10-12 15:48] VITALS: BP 109/69
[2016-10-12] MEDS: WARFARIN 4 MG TABLET. PO SCH (16:43)
--- NOTE | 2016-10-12 20:00 | NUR ---
Behavior Intervention Response and Plan: BIRP Note: Behavior: Assumed Care of patient, patient located in Day Room at shift change. Patient exhibited the following behavior Interactive, Calm, Compliant. Brief assessment on rounds of vital signs, medication needs, lab studies, and pain. Treatment plan problems 1. Intervention: Patient assessed and the following interventions initiated safety checks 15 Minute Checks Personal Alarm in place , Cognitive Assessment , Head to toe Assessment. Response: After interactions and interventions patient responded in the following manner, Interactive , Calm ,Compliant. Continue to assess behaviors and condition will continue to monitor throughout the shift as needed. 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 Continue to assess patient for changes in above assessment. Monitor for medication needs, pain, and safety concerns. Hourly rounding performed to ensure safe environment.
[2016-10-12] MEDS: MIRTAZAPINE 15 MG TABLET PO SCH (20:08)
--- NOTE | 2016-10-12 21:41 | PDOC ---
Exam Blake Demential Exam: Blake Note: Please also refer to the separate dictated note~for this date of service dictated separately.~Patient seen individually. Discussed the patient with Nursing staff reviewed the chart.~Reviewed interim history and current functioning. Reviewed vital signs,~Labs/ Radiology~and current medications noted below. Continue current treatment with the changes noted in the dictated addendum note Assessment: Vital Signs: Vital Signs Date Time Temp Pulse Resp B/P (MAP) Pulse Ox O2 Delivery O2 Flow Rate FiO2 10/12/16 15:48 97.6 70 18 109/69 (82) 97 Room Air 10/07/16 16:24 98.0 I&O Intake and Output 10/12/16 07:00 Intake Total 840 ml Balance 840 ml Intake Oral 720 ml Tube Feeding 120 ml Labs: Laboratory Tests Test 10/12/16 06:40 White Blood Count 5.2 x10^3/uL (4.0-11.0) Red Blood Count 3.96 x10^6/uL (4.30-5.70) L Hemoglobin 11.6 g/dL (13.0-17.5) L Hematocrit 34.9 % (39.0-53.0) L Mean Corpuscular Volume 88 fL (79-100) Mean Corpuscular Hemoglobin 29 pg (25-35) Mean Corpuscular Hemoglobin Concent 33 g/dL (31-37) Red Cell Distribution Width 15.1 % (11.5-14.5) H Platelet Count 143 x10^3/uL (140-400) Sodium Level 144 mmol/L (136-145) Potassium Level 4.1 mmol/L (3.5-5.1) Chloride Level 108 mmol/L (98-107) H Carbon Dioxide Level 27 mmol/L (21-32) Anion Gap 9 (6-14) Blood Urea Nitrogen 28 mg/dL (8-26) H Creatinine 1.1 mg/dL (0.7-1.3) Estimated GFR (Cockcroft-Gault) 65.4 BUN/Creatinine Ratio 25 (6-20) H Glucose Level 88 mg/dL (70-99) Calcium Level 8.6 mg/dL (8.5-10.1) Total Bilirubin 0.8 mg/dL (0.2-1.0) Aspartate Amino Transferase (AST) 21 U/L (15-37) Alanine Aminotransferase (ALT) 19 U/L (16-63) Alkaline Phosphatase 50 U/L (46-116) Total Protein 6.9 g/dL (6.4-8.2) Albumin 3.3 g/dL (3.4-5.0) L Albumin/Globulin Ratio 0.9 (1.0-1.7) L Valproic Acid Level 46 mcg/mL (50-100) L Valproic Acid Last Dose Date 10/11/2016 Valproic Acid Last Dose Time 2100 Current Medications: Meds: Current Medications Acetaminophen (Tylenol) 650 mg PRN Q6HRS PRN PO PAIN / TEMP Last administered on 09/15/16 20:02; Start 09/12/16 at 19:15 Multi-Ingredient Ointment (Analgesic [place]) 1 wilfredo PRN QID PRN TP MUSCLE PAIN; Start 09/12/16 at 19:15 Al Hydroxide/Mg Hydroxide (Mylanta Plus Xs) 15 ml PRN AFTMEALHC PRN PO DYSPEPSIA; Start 09/12/16 at 19:15 Magnesium Hydroxide (Milk Of Magnesia) 2,400 mg PRN QHS PRN PO CONSTIPATION; Start 09/12/16 at 19:15 Divalproex Sodium (Depakote) 250 mg BID PO Last administered on 09/20/16 08:38 ; Start 09/12/16 at 21:00; Stop 09/20/16 at 10:41; Status DC Lorazepam (Ativan) 0.5 mg PRN BID PRN PO ANXIETY / AGITATION Last administered on 10/07/16 19:22; Start 09/12/16 at 19:45; Stop 10/07/16 at 20:59; Status DC Lorazepam (Ativan) 1 mg BID PO Last administered on 09/17/16 08:49; Start 02/19 at 21:00; Stop 09/17/16 at 18:05; Status DC Selegiline HCl (Emsam) 1 patch DAILY TD ; Start 09/13/16 at 09:00; Stop at 18:35; Status DC Buspirone HCl (Buspar) 7.5 mg BID PO Last administered on 09/27/16 09:12; Start 09/12/16 at 21:00; Stop 09/27/16 at 10:31; Status DC Amiodarone HCl (Cordarone) 100 mg DAILY PO Last administered on 10/12/16 08:25 ; Start 09/13/16 at 09:00 Aspirin (Children'S Aspirin) 81 mg DAILY PO Last administered on 10/12/16 08:24 ; Start 09/13/16 at 09:00 Famotidine (Pepcid) 20 mg DAILY PO Last administered on 10/12/16 08:22; Start 09/13/16 at 09:00 Lisinopril (Prinivil) 5 mg DAILY PO Last administered on 10/12/16 08:23; Start 09/13/16 at 09:00 Loperamide HCl (Imodium) 2 mg PRN Q4HRS PRN PO DIARRHEA; Start 09/12/16 at 19: 45 Tamsulosin HCl (Flomax) 0.4 mg DAILY PO Last administered on 10/12/16 08:24; Start 09/13/16 at 09:00 Warfarin Sodium (Coumadin) 2.5 mg DAILY16 PO Last administered on 09/14/16 16: 05; Start 09/13/16 at 16:00; Stop 09/15/16 at 15:03; Status DC Multivitamins/ Calcium (Thera-M Plus) 1 tab DAILY PO Last administered on 08:22; Start 09/13/16 at 09:00 Warfarin Sodium (Coumadin) 2 mg DAILY16 PO Last administered on 09/14/16 16:06 ; Start 09/13/16 at 16:00; Stop 09/15/16 at 15:02; Status DC Warfarin Sodium (Coumadin Per Pharmacy) 1 each PRN DAILY PRN MC SEE COMMENTS Last administered on 10/11/16 08:36; Start 09/13/16 at 03:15 Vitamin D (Vitamin D3) 50,000 unit WEEKLY PO Last administered on 10/12/16 09: 45; Start 09/14/16 at 09:00 Selegiline HCl (Eldepryl) 5 mg DAILY PO Last administered on 10/07/16 09:39; Start 09/14/16 at 09:00; Stop 10/07/16 at 20:59; Status DC Trazodone HCl (Desyrel) 50 mg PRN QHS PRN PO INSOMNIA, MAY REPEAT X1 Last administered on 10/08/16 23:18; Start 09/14/16 at 19:15 Nystatin (Nystop) 1 wilfredo BID TP Last administered on 10/12/16 20:09; Start 09/15 at 09:00 Nystatin (Nystop) 30 wilfredo STK-MED ONCE TP Last administered on 09/14/16 21:27; Start 09/14/16 at 21:27; Stop 09/14/16 at 21:28; Status DC Warfarin Sodium (Coumadin) 3 mg 1X WARF ONCE PO Last administered on 15:48; Start 09/15/16 at 16:00; Stop 09/15/16 at 16:01; Status DC Warfarin Sodium (Coumadin) 2.5 mg 1X ONCE PO Last administered on 09/15/16 15 :47; Start 09/15/16 at 15:15; Stop 09/15/16 at 15:17; Status DC Warfarin Sodium (Coumadin) 5 mg 1X WARF ONCE PO Last administered on 18:16; Start 09/16/16 at 16:00; Stop 09/16/16 at 16:01; Status DC Warfarin Sodium (Coumadin) 2 mg 1X WARF ONCE PO Last administered on 16:02; Start 09/17/16 at 16:00; Stop 09/17/16 at 16:01; Status DC Warfarin Sodium (Coumadin) 2.5 mg 1X WARF ONCE PO Last administered on 16:03; Start 09/17/16 at 16:00; Stop 09/17/16 at 16:01; Status DC Lorazepam (Ativan) 0.5 mg TID PO Last administered on 09/20/16 20:45; Start at 21:00; Stop 09/20/16 at 21:00; Status DC Lorazepam (Ativan) 0.5 mg BID PO Last administered on 09/24/16 19:38; Start at 09:00; Stop 09/24/16 at 21:01; Status DC Lorazepam (Ativan) 0.5 mg DAILY PO Last administered on 09/27/16 09:15; Start 09/25/16 at 09:00; Stop 09/27/16 at 10:39; Status DC Warfarin Sodium (Coumadin) 2.5 mg 1X WARF ONCE PO Last administered on 14:58; Start 09/18/16 at 16:00; Stop 09/18/16 at 16:01; Status DC Warfarin Sodium (Coumadin) 2 mg 1X WARF ONCE PO Last administered on 14:59; Start 09/18/16 at 16:00; Stop 09/18/16 at 16:01; Status DC Sertraline HCl (Zoloft) 25 mg DAILY PO Last administered on 09/24/16 07:43; Start 09/19/16 at 09:00; Stop 09/24/16 at 18:00; Status DC Warfarin Sodium (Coumadin - No Dose Today) 1 each 1X WARF ONCE MC Last administered on 09/19/16 14:14; Start 09/19/16 at 16:00; Stop 09/19/16 at 16:02 ; Status DC Quetiapine Fumarate (SEROquel) 25 mg QHS PO Last administered on 10/03/16 19: 12; Start 09/20/16 at 21:00; Stop 10/04/16 at 10:51; Status DC Warfarin Sodium (Coumadin) 2.5 mg 1X WARF ONCE PO Last administered on 16:31; Start 09/20/16 at 16:00; Stop 09/20/16 at 16:01; Status DC Valproic Acid (Depakene) 250 mg BID PO Last administered on 09/25/16 09:29; Start 09/20/16 at 21:00; Stop 09/25/16 at 18:06; Status DC Warfarin Sodium (Coumadin) 2.5 mg 1X WARF ONCE PO Last administered on 16:02; Start 09/21/16 at 16:00; Stop 09/21/16 at 16:01; Status DC Warfarin Sodium (Coumadin) 1 mg 1X WARF ONCE PO Last administered on 16:02; Start 09/21/16 at 16:00; Stop 09/21/16 at 16:01; Status DC Mirtazapine (Remeron) 7.5 mg QHS PO Last administered on 09/26/16 19:21; Start 09/21/16 at 21:00; Stop 09/27/16 at 10:31; Status DC Warfarin Sodium (Coumadin) 4 mg 1X WARF ONCE PO Last administered on 16:31; Start 09/22/16 at 16:00; Stop 09/22/16 at 16:01; Status DC Warfarin Sodium (Coumadin) 4 mg 1X WARF ONCE PO Last administered on 15:42; Start 09/23/16 at 16:00; Stop 09/23/16 at 16:01; Status DC Warfarin Sodium (Coumadin) 4 mg DAILY16 PO Last administered on 09/25/16 16:00 ; Start 09/24/16 at 16:00; Stop 09/26/16 at 08:25; Status DC Sertraline HCl (Zoloft) 50 mg DAILY PO Last administered on 10/03/16 08:52; Start 09/25/16 at 09:00; Stop 10/03/16 at 14:04; Status DC Valproic Acid (Depakene) 375 mg BID PO Last administered on 10/03/16 08:53; Start 09/25/16 at 21:00; Stop 10/03/16 at 18:33; Status DC Warfarin Sodium (Coumadin) 2 mg DAILY16 PO Last administered on 10/08/16 16:21 ; Start 09/26/16 at 16:00; Stop 10/08/16 at 16:53; Status DC Warfarin Sodium (Coumadin) 2.5 mg DAILY16 PO Last administered on 10/08/16 16: 21; Start 09/26/16 at 16:00; Stop 10/08/16 at 16:53; Status DC Quetiapine Fumarate (SEROquel) 12.5 mg BID92 PO Last administered on 09/30/16 13:36; Start 09/27/16 at 09:00; Stop 09/30/16 at 22:00; Status DC Buspirone HCl (Buspar) 10 mg TID PO Last administered on 10/12/16 20:08; Start 09/27/16 at 14:00 Mirtazapine (Remeron) 15 mg QHS PO Last administered on 10/12/16 20:08; Start 09/27/16 at 21:00 Lorazepam (Ativan) 0.5 mg DAILY PO Last administered on 10/11/16 08:27; Start 09/28/16 at 09:00 Quetiapine Fumarate (SEROquel) 12.5 mg 0900,1400,1700 PO Last administered on 08:52; Start 10/01/16 at 09:00; Stop 10/03/16 at 14:04; Status DC Olanzapine (ZyPREXA ZYDIS) 2.5 mg PRN Q2HR PRN PO PSYCHOSIS Last administered on 10/03/16 11:54; Start 10/03/16 at 10:00 Quetiapine Fumarate (SEROquel) 25 mg 0900,1400,1700 PO Last administered on 10/04 10:01; Start 10/03/16 at 17:00; Stop 10/04/16 at 10:51; Status DC Hydroxyzine HCl (Atarax) 50 mg PRN Q2HR PRN PO ANXIETY / AGITATION Last administered on 10/06/16 11:50; Start 10/03/16 at 14:15 Valproic Acid (Depakene) 500 mg BID PO Last administered on 10/12/16 20:09; Start 10/03/16 at 21:00 Risperidone (RisperDAL) 0.25 mg BID PO Last administered on 10/09/16 09:01; Start 10/04/16 at 21:00; Stop 10/09/16 at 18:21; Status DC Levothyroxine Sodium (Synthroid) 12.5 mcg DAILY06 PO Last administered on 05:03; Start 10/07/16 at 06:00 Lorazepam (Ativan) 0.25 mg PRN Q2HR PRN PO ANXIETY / AGITATION Last administered on 10/10/16 05:05; Start 10/07/16 at 21:15 Risperidone (RisperDAL) 0.375 mg DAILY PO Last administered on 10/12/16 08:23; Start 10/10/16 at 09:00 Risperidone (RisperDAL) 0.25 mg QHS PO Last administered on 10/12/16 20:08; Start 10/09/16 at 21:00 Warfarin Sodium (Coumadin - No Dose Today) 1 each 1X WARF ONCE MC Last administered on 10/10/16 14:23; Start 10/10/16 at 16:00; Stop 10/10/16 at 16:01; Status DC Haloperidol Lactate (Haldol) 5 mg DAILY IM Last administered on 10/12/16 08:42 ; Start 10/10/16 at 08:00; Stop 10/12/16 at 18:58; Status DC Lorazepam (Ativan) 0.5 mg DAILY IM Last administered on 10/12/16 08:43; Start 10/10/16 at 08:00; Stop 10/12/16 at 18:43; Status DC Warfarin Sodium (Coumadin) 4 mg DAILY16 PO Last administered on 10/12/16 16:43 ; Start 10/11/16 at 16:00 Fluvoxamine Maleate (Luvox) 25 mg HS PO Last administered on 10/12/16 20:08; Start 10/11/16 at 21:00 Haloperidol (Haldol) 2.5 mg DAILY PO ; Start 10/13/16 at 09:00 Active Scripts Active Reported Therems-M (Multivits, W-Fe,Other Min) 1 Each Tablet 1 Each PO DAILY Tamsulosin Hcl 0.4 Mg Cap.er.24h 0.4 Mg PO DAILY Lisinopril 5 Mg Tablet 5 Mg PO DAILY Famotidine 20 Mg Tablet 20 Mg PO DAILY Emsam (Selegiline) 1 Each Patch.td24 1 Each TD DAILY Aspirin 81 Mg Tab.chew 81 Mg PO DAILY Amiodarone Hcl 200 Mg Tablet 100 Mg PO DAILY Depakote (Divalproex Sodium) 250 Mg Tablet.dr 250 Mg PO BID Coumadin (Warfarin Sodium) 4 Mg Tablet 4.5 Mg PO DAILY Ativan (Lorazepam) 0.5 Mg Tablet 0.5 Mg PO PRN BID PRN Imodium A-D (Loperamide HCl) 2 Mg Capsule 2 Mg PO PRN PRN MDD 12 mg Ativan (Lorazepam) 1 Mg Tablet 1 Mg PO BID Buspirone Hcl 7.5 Mg Tablet 7.5 Mg PO BID Diagnosis: Problems: (1) Dementia (2) Anxiety disorder (3) Impulse control disorder (4) Dementia, vascular, with depression (5) Dementia, vascular, with delusions (6) Dementia in Alzheimer's disease with depression (7) Dementia in Alzheimer's disease with delusions LINDSAY BROWN MD Oct 12, 2016 21:41
--- NOTE | 2016-10-13 04:43 | PN ---
DATE: 10/10/2016 This is a late entry for 10/10/2016 and covers elements not covered in my initial note. SUBJECTIVE: The patient remains confused, remains on Haldol, Ativan IM, which was initiated due to his marked agitation, aggression, after the nursing staff called me as an emergency consequent to the patient's dangerous behaviors. He slept till lunch and then was pleasant, took his Depakene at 11:00 a.m. REVIEW OF SYSTEMS: No eye, ENT, CV, , pulmonary system symptoms on review. Reliability poor. MENTAL STATUS EXAM: Oriented to himself. Insight, judgment, recent and remote memory, attention, concentration, fund of knowledge poor, consistent with his diagnosis mentioned in my initial note. PLAN: Continue current psychotropics and Haldol, Ativan IM scheduled, which were initiated because of lack of response to oral medications. MAN Phoenix BROWN MD DR: JEREL/tavo JOB#: [id number] / [id number]
--- NOTE | 2016-10-13 04:46 | PN ---
DATE: 10/11/2016 This is a late entry for 10/11/2016 and covers elements not covered in my initial note. SUBJECTIVE: The patient was staffed at a treatment team meeting with the entire team and his , Dana, attended. Reviewed the patient's history, diagnosis at length, dangerous behaviors, initiation of IM Haldol, Ativan. She understood all of this. He slept 6 hours. Appetite about 60%, took a shower previous evening, obsessive at times. REVIEW OF SYSTEMS: No eye, ENT, CV, , pulmonary system symptoms on review. Reliability poor. MENTAL STATUS EXAM: Oriented to himself. Insight, judgment, recent and remote memory, attention, concentration, fund of knowledge poor, consistent with his diagnosis. LABORATORY DATA: Valproic acid level is 60. IMPRESSION: Unchanged from initial note. PLAN: Continue psychotropics mentioned in my initial note, start Luvox 25 mg p.o. at bedtime, for his obsessive anxiety may need to increase this gradually. LINDSAY BROWN MD DR: JEREL/tavo JOB#: [id number] / [id number]
[2016-10-13] MEDS: LEVOTHYROXINE 25 MCG TABLET. PO SCH (05:39)
[2016-10-13 06:36] VITALS: BP 130/90
[2016-10-13] MEDS: MULTIVITAMIN with MINERAL TABLET. PO SCH (09:54)
[2016-10-13] MEDS: VALPROATE ACID 250 MG/5 ML ORAL SOLUTION PO SCH ×2 (09:54→22:05)
[2016-10-13] MEDS: TAMSULOSIN 0.4 MG CAP.ER.24H. PO SCH (09:54)
[2016-10-13] MEDS: risperiDONE 0.25 MG TABLET. PO SCH ×2 (09:54→22:05)
[2016-10-13] MEDS: FAMOTIDINE 20 MG TABLET PO SCH (09:55)
[2016-10-13] MEDS: busPIRone 10 MG TABLET. PO SCH ×3 (09:55→22:05)
[2016-10-13] MEDS: AMIODARONE HCL 200 MG TABLET PO SCH (09:55)
[2016-10-13] MEDS: LISINOPRIL 5 MG TABLET. PO SCH (09:56)
[2016-10-13] MEDS: ASPIRIN 81 MG TAB.CHEW PO SCH (09:56)
[2016-10-13] MEDS: NYSTATIN TOPICAL POWDER 30GM BOTTLE. TP SCH ×2 (10:00→21:00)
[2016-10-13] MEDS: HALOPERIDOL 5 MG TABLET PO SCH (10:00)
[2016-10-13] MEDS: LORazepam 0.5 MG TABLET PO SCH (10:00)
--- NOTE | 2016-10-13 10:05 | NUR ---
Behavior Intervention Response and Plan: BIRP Note: Behavior: Assumed Care of patient, patient located in Day Room at shift change. Patient exhibited the following behavior Interactive, Disorganized, Cooperative. Brief assessment on rounds of vital signs, medication needs, lab studies, and pain. Treatment plan problems 1 & 2. Intervention: Patient assessed and the following interventions initiated safety checks 15 Minute Checks Cognitive Assessment , Head to toe Assessment , Medications. Response: After interactions and interventions patient responded in the following manner, Calm , Appropriate ,Compliant. Continue to assess behaviors and condition will continue to monitor throughout the shift as needed. Plan: Continue to monitor Master Treatment Plan for patient's progress toward short term goals of Decreased Agitation, Decreased Aggression, long chain beamer goals to return to previous living setting vs placement. Continue to assess patient for changes in above assessment. Monitor for medication needs, pain, and safety concerns. Hourly rounding performed to ensure safe environment.
--- NOTE | 2016-10-13 11:20 | PDOC ---
Exam Blake Demential Exam: Blake Note: Please also refer to the separate dictated note~for this date of service dictated separately.~Patient seen individually. Discussed the patient with Nursing staff reviewed the chart.~Reviewed interim history and current functioning. Reviewed vital signs,~Labs/ Radiology~and current medications noted below. Continue current treatment with the changes noted in the dictated addendum note Assessment: Vital Signs: Vital Signs Date Time Temp Pulse Resp B/P (MAP) Pulse Ox O2 Delivery O2 Flow Rate FiO2 10/13/16 09:56 72 130/90 10/13/16 06:36 97.6 16 93 Room Air 10/07/16 16:24 98.0 I&O Intake and Output 10/13/16 07:00 Intake Total 480 ml Balance 480 ml Intake Oral 360 ml Tube Feeding 120 ml Current Medications: Meds: Current Medications Acetaminophen (Tylenol) 650 mg PRN Q6HRS PRN PO PAIN / TEMP Last administered on 09/15/16 20:02; Start 09/12/16 at 19:15 Multi-Ingredient Ointment (Analgesic [place]) 1 wilfredo PRN QID PRN TP MUSCLE PAIN; Start 09/12/16 at 19:15 Al Hydroxide/Mg Hydroxide (Mylanta Plus Xs) 15 ml PRN AFTMEALHC PRN PO DYSPEPSIA; Start 09/12/16 at 19:15 Magnesium Hydroxide (Milk Of Magnesia) 2,400 mg PRN QHS PRN PO CONSTIPATION; Start 09/12/16 at 19:15 Divalproex Sodium (Depakote) 250 mg BID PO Last administered on 09/20/16 08:38 ; Start 09/12/16 at 21:00; Stop 09/20/16 at 10:41; Status DC Lorazepam (Ativan) 0.5 mg PRN BID PRN PO ANXIETY / AGITATION Last administered on 10/07/16 19:22; Start 09/12/16 at 19:45; Stop 10/07/16 at 20:59; Status DC Lorazepam (Ativan) 1 mg BID PO Last administered on 09/17/16 08:49; Start 02/19 at 21:00; Stop 09/17/16 at 18:05; Status DC Selegiline HCl (Emsam) 1 patch DAILY TD ; Start 09/13/16 at 09:00; Stop at 18:35; Status DC Buspirone HCl (Buspar) 7.5 mg BID PO Last administered on 09/27/16 09:12; Start 09/12/16 at 21:00; Stop 09/27/16 at 10:31; Status DC Amiodarone HCl (Cordarone) 100 mg DAILY PO Last administered on 10/13/16 09:55 ; Start 09/13/16 at 09:00 Aspirin (Children'S Aspirin) 81 mg DAILY PO Last administered on 10/13/16 09: 56; Start 09/13/16 at 09:00 Famotidine (Pepcid) 20 mg DAILY PO Last administered on 10/13/16 09:55; Start 09/13/16 at 09:00 Lisinopril (Prinivil) 5 mg DAILY PO Last administered on 10/13/16 09:56; Start 09/13/16 at 09:00 Loperamide HCl (Imodium) 2 mg PRN Q4HRS PRN PO DIARRHEA; Start 09/12/16 at 19: 45 Tamsulosin HCl (Flomax) 0.4 mg DAILY PO Last administered on 10/13/16 09:54; Start 09/13/16 at 09:00 Warfarin Sodium (Coumadin) 2.5 mg DAILY16 PO Last administered on 09/14/16 16: 05; Start 09/13/16 at 16:00; Stop 09/15/16 at 15:03; Status DC Multivitamins/ Calcium (Thera-M Plus) 1 tab DAILY PO Last administered on 09:54; Start 09/13/16 at 09:00 Warfarin Sodium (Coumadin) 2 mg DAILY16 PO Last administered on 09/14/16 16:06 ; Start 09/13/16 at 16:00; Stop 09/15/16 at 15:02; Status DC Warfarin Sodium (Coumadin Per Pharmacy) 1 each PRN DAILY PRN MC SEE COMMENTS Last administered on 10/11/16 08:36; Start 09/13/16 at 03:15 Vitamin D (Vitamin D3) 50,000 unit WEEKLY PO Last administered on 10/12/16 09: 45; Start 09/14/16 at 09:00 Selegiline HCl (Eldepryl) 5 mg DAILY PO Last administered on 10/07/16 09:39; Start 09/14/16 at 09:00; Stop 10/07/16 at 20:59; Status DC Trazodone HCl (Desyrel) 50 mg PRN QHS PRN PO INSOMNIA, MAY REPEAT X1 Last administered on 10/08/16 23:18; Start 09/14/16 at 19:15 Nystatin (Nystop) 1 wilfredo BID TP Last administered on 10/13/16 10:00; Start at 09:00 Nystatin (Nystop) 30 wilfredo STK-MED ONCE TP Last administered on 09/14/16 21:27; Start 09/14/16 at 21:27; Stop 09/14/16 at 21:28; Status DC Warfarin Sodium (Coumadin) 3 mg 1X WARF ONCE PO Last administered on 15:48; Start 09/15/16 at 16:00; Stop 09/15/16 at 16:01; Status DC Warfarin Sodium (Coumadin) 2.5 mg 1X ONCE PO Last administered on 09/15/16 15 :47; Start 09/15/16 at 15:15; Stop 09/15/16 at 15:17; Status DC Warfarin Sodium (Coumadin) 5 mg 1X WARF ONCE PO Last administered on 18:16; Start 09/16/16 at 16:00; Stop 09/16/16 at 16:01; Status DC Warfarin Sodium (Coumadin) 2 mg 1X WARF ONCE PO Last administered on 16:02; Start 09/17/16 at 16:00; Stop 09/17/16 at 16:01; Status DC Warfarin Sodium (Coumadin) 2.5 mg 1X WARF ONCE PO Last administered on 16:03; Start 09/17/16 at 16:00; Stop 09/17/16 at 16:01; Status DC Lorazepam (Ativan) 0.5 mg TID PO Last administered on 09/20/16 20:45; Start at 21:00; Stop 09/20/16 at 21:00; Status DC Lorazepam (Ativan) 0.5 mg BID PO Last administered on 09/24/16 19:38; Start at 09:00; Stop 09/24/16 at 21:01; Status DC Lorazepam (Ativan) 0.5 mg DAILY PO Last administered on 09/27/16 09:15; Start 09/25/16 at 09:00; Stop 09/27/16 at 10:39; Status DC Warfarin Sodium (Coumadin) 2.5 mg 1X WARF ONCE PO Last administered on 14:58; Start 09/18/16 at 16:00; Stop 09/18/16 at 16:01; Status DC Warfarin Sodium (Coumadin) 2 mg 1X WARF ONCE PO Last administered on 14:59; Start 09/18/16 at 16:00; Stop 09/18/16 at 16:01; Status DC Sertraline HCl (Zoloft) 25 mg DAILY PO Last administered on 09/24/16 07:43; Start 09/19/16 at 09:00; Stop 09/24/16 at 18:00; Status DC Warfarin Sodium (Coumadin - No Dose Today) 1 each 1X WARF ONCE MC Last administered on 09/19/16 14:14; Start 09/19/16 at 16:00; Stop 09/19/16 at 16:02 ; Status DC Quetiapine Fumarate (SEROquel) 25 mg QHS PO Last administered on 10/03/16 19: 12; Start 09/20/16 at 21:00; Stop 10/04/16 at 10:51; Status DC Warfarin Sodium (Coumadin) 2.5 mg 1X WARF ONCE PO Last administered on 16:31; Start 09/20/16 at 16:00; Stop 09/20/16 at 16:01; Status DC Valproic Acid (Depakene) 250 mg BID PO Last administered on 09/25/16 09:29; Start 09/20/16 at 21:00; Stop 09/25/16 at 18:06; Status DC Warfarin Sodium (Coumadin) 2.5 mg 1X WARF ONCE PO Last administered on 16:02; Start 09/21/16 at 16:00; Stop 09/21/16 at 16:01; Status DC Warfarin Sodium (Coumadin) 1 mg 1X WARF ONCE PO Last administered on 16:02; Start 09/21/16 at 16:00; Stop 09/21/16 at 16:01; Status DC Mirtazapine (Remeron) 7.5 mg QHS PO Last administered on 09/26/16 19:21; Start 09/21/16 at 21:00; Stop 09/27/16 at 10:31; Status DC Warfarin Sodium (Coumadin) 4 mg 1X WARF ONCE PO Last administered on 16:31; Start 09/22/16 at 16:00; Stop 09/22/16 at 16:01; Status DC Warfarin Sodium (Coumadin) 4 mg 1X WARF ONCE PO Last administered on 15:42; Start 09/23/16 at 16:00; Stop 09/23/16 at 16:01; Status DC Warfarin Sodium (Coumadin) 4 mg DAILY16 PO Last administered on 09/25/16 16:00 ; Start 09/24/16 at 16:00; Stop 09/26/16 at 08:25; Status DC Sertraline HCl (Zoloft) 50 mg DAILY PO Last administered on 10/03/16 08:52; Start 09/25/16 at 09:00; Stop 10/03/16 at 14:04; Status DC Valproic Acid (Depakene) 375 mg BID PO Last administered on 10/03/16 08:53; Start 09/25/16 at 21:00; Stop 10/03/16 at 18:33; Status DC Warfarin Sodium (Coumadin) 2 mg DAILY16 PO Last administered on 10/08/16 16:21 ; Start 09/26/16 at 16:00; Stop 10/08/16 at 16:53; Status DC Warfarin Sodium (Coumadin) 2.5 mg DAILY16 PO Last administered on 10/08/16 16: 21; Start 09/26/16 at 16:00; Stop 10/08/16 at 16:53; Status DC Quetiapine Fumarate (SEROquel) 12.5 mg BID92 PO Last administered on 09/30/16 13:36; Start 09/27/16 at 09:00; Stop 09/30/16 at 22:00; Status DC Buspirone HCl (Buspar) 10 mg TID PO Last administered on 10/13/16 09:55; Start 09/27/16 at 14:00 Mirtazapine (Remeron) 15 mg QHS PO Last administered on 10/12/16 20:08; Start 09/27/16 at 21:00 Lorazepam (Ativan) 0.5 mg DAILY PO Last administered on 10/13/16 10:00; Start 09/28/16 at 09:00 Quetiapine Fumarate (SEROquel) 12.5 mg 0900,1400,1700 PO Last administered on 08:52; Start 10/01/16 at 09:00; Stop 10/03/16 at 14:04; Status DC Olanzapine (ZyPREXA ZYDIS) 2.5 mg PRN Q2HR PRN PO PSYCHOSIS Last administered on 10/03/16 11:54; Start 10/03/16 at 10:00 Quetiapine Fumarate (SEROquel) 25 mg 0900,1400,1700 PO Last administered on 10/04 10:01; Start 10/03/16 at 17:00; Stop 10/04/16 at 10:51; Status DC Hydroxyzine HCl (Atarax) 50 mg PRN Q2HR PRN PO ANXIETY / AGITATION Last administered on 10/06/16 11:50; Start 10/03/16 at 14:15 Valproic Acid (Depakene) 500 mg BID PO Last administered on 10/13/16 09:54; Start 10/03/16 at 21:00 Risperidone (RisperDAL) 0.25 mg BID PO Last administered on 10/09/16 09:01; Start 10/04/16 at 21:00; Stop 10/09/16 at 18:21; Status DC Levothyroxine Sodium (Synthroid) 12.5 mcg DAILY06 PO Last administered on 05:39; Start 10/07/16 at 06:00 Lorazepam (Ativan) 0.25 mg PRN Q2HR PRN PO ANXIETY / AGITATION Last administered on 10/10/16 05:05; Start 10/07/16 at 21:15 Risperidone (RisperDAL) 0.375 mg DAILY PO Last administered on 10/13/16 09:54 ; Start 10/10/16 at 09:00 Risperidone (RisperDAL) 0.25 mg QHS PO Last administered on 10/12/16 20:08; Start 10/09/16 at 21:00 Warfarin Sodium (Coumadin - No Dose Today) 1 each 1X WARF ONCE MC Last administered on 10/10/16 14:23; Start 10/10/16 at 16:00; Stop 10/10/16 at 16:01; Status DC Haloperidol Lactate (Haldol) 5 mg DAILY IM Last administered on 10/12/16 08:42 ; Start 10/10/16 at 08:00; Stop 10/12/16 at 18:58; Status DC Lorazepam (Ativan) 0.5 mg DAILY IM Last administered on 10/12/16 08:43; Start 10/10/16 at 08:00; Stop 10/12/16 at 18:43; Status DC Warfarin Sodium (Coumadin) 4 mg DAILY16 PO Last administered on 10/12/16 16:43 ; Start 10/11/16 at 16:00 Fluvoxamine Maleate (Luvox) 25 mg HS PO Last administered on 10/12/16 20:08; Start 10/11/16 at 21:00 Haloperidol (Haldol) 2.5 mg DAILY PO Last administered on 10/13/16 10:00; Start 10/13/16 at 09:00 Active Scripts Active Reported Therems-M (Multiv, W-Fe,Other Min) 1 Each Tablet 1 Each PO DAILY Tamsulosin Hcl 0.4 Mg Cap.er.24h 0.4 Mg PO DAILY Lisinopril 5 Mg Tablet 5 Mg PO DAILY Famotidine 20 Mg Tablet 20 Mg PO DAILY Emsam (Selegiline) 1 Each Patch.td24 1 Each TD DAILY Aspirin 81 Mg Tab.chew 81 Mg PO DAILY Amiodarone Hcl 200 Mg Tablet 100 Mg PO DAILY Depakote (Divalproex Sodium) 250 Mg Tablet.dr 250 Mg PO BID Coumadin (Warfarin Sodium) 4 Mg Tablet 4.5 Mg PO DAILY Ativan (Lorazepam) 0.5 Mg Tablet 0.5 Mg PO PRN BID PRN Imodium A-D (Loperamide HCl) 2 Mg Capsule 2 Mg PO PRN PRN MDD 12 mg Ativan (Lorazepam) 1 Mg Tablet 1 Mg PO BID Buspirone Hcl 7.5 Mg Tablet 7.5 Mg PO BID Diagnosis: Problems: (1) Dementia (2) Anxiety disorder (3) Impulse control disorder (4) Dementia, vascular, with depression (5) Dementia, vascular, with delusions (6) Dementia in Alzheimer's disease with depression (7) Dementia in Alzheimer's disease with delusions LINDSAY BROWN MD Oct 13, 2016 11:20
[2016-10-13 15:54] VITALS: BP 119/80
[2016-10-13] MEDS: WARFARIN 4 MG TABLET. PO SCH (16:45)
[2016-10-13] MEDS: MIRTAZAPINE 15 MG TABLET PO SCH (22:05)
--- NOTE | 2016-10-13 23:00 | NUR ---
Behavior Intervention Response and Plan: BIRP Note: Behavior: Assumed Care of patient, patient located in Patient Room at shift change. Patient exhibited the following behavior Interactive, Calm, Compliant. Brief assessment on rounds of vital signs, medication needs, lab studies, and pain. Treatment plan problems . Intervention: Patient assessed and the following interventions initiated safety checks 15 Minute Checks Call [place] in reach , Medications , Nutrition. Response: After interactions and interventions patient responded in the following manner, Interactive , Calm ,Compliant. Continue to assess behaviors and condition will continue to monitor throughout the shift as needed. Plan: Continue to monitor Master Treatment Plan for patient's progress toward short term goals of Decreased Agitation, Decreased Anxiety, jail goals to return to previous living setting vs placement. Continue to assess patient for changes in above assessment. Monitor for medication needs, pain, and safety concerns. Hourly rounding performed to ensure safe environment.
[2016-10-14] MEDS: LEVOTHYROXINE 25 MCG TABLET. PO SCH (05:38)
[2016-10-14 06:14] VITALS: BP 126/77
[2016-10-14] MEDS: busPIRone 10 MG TABLET. PO SCH ×3 (08:15→19:23)
[2016-10-14] MEDS: HALOPERIDOL 5 MG TABLET PO SCH (08:16)
[2016-10-14] MEDS: AMIODARONE HCL 200 MG TABLET PO SCH (08:16)
[2016-10-14] MEDS: TAMSULOSIN 0.4 MG CAP.ER.24H. PO SCH (08:16)
[2016-10-14] MEDS: MULTIVITAMIN with MINERAL TABLET. PO SCH (08:16)
[2016-10-14] MEDS: VALPROATE ACID 250 MG/5 ML ORAL SOLUTION PO SCH ×2 (08:16→19:23)
[2016-10-14] MEDS: LORazepam 0.5 MG TABLET PO SCH (08:17)
[2016-10-14] MEDS: risperiDONE 0.25 MG TABLET. PO SCH ×2 (08:17→19:23)
[2016-10-14] MEDS: ASPIRIN 81 MG TAB.CHEW PO SCH (08:17)
[2016-10-14] MEDS: LISINOPRIL 5 MG TABLET. PO SCH (08:17)
[2016-10-14] MEDS: FAMOTIDINE 20 MG TABLET PO SCH (08:17)
--- NOTE | 2016-10-14 08:30 | NUR ---
Behavior Intervention Response and Plan: BIRP Note: Behavior: Assumed Care of patient, patient located in Dining Room at shift change. Patient exhibited the following behavior Calm, Disorganized, Compliant. Brief assessment on rounds of vital signs, medication needs, lab studies, and pain. Treatment plan problems 1 & 2. Intervention: Patient assessed and the following interventions initiated safety checks 15 Minute Checks Cognitive Assessment , Head to toe Assessment , Medications. Response: After interactions and interventions patient responded in the following manner, Calm , Appropriate ,Compliant. Continue to assess behaviors and condition will continue to monitor throughout the shift as needed. 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 Continue to assess patient for changes in above assessment. Monitor for medication needs, pain, and safety concerns. Hourly rounding performed to ensure safe environment.
[2016-10-14] MEDS: NYSTATIN TOPICAL POWDER 30GM BOTTLE. TP SCH ×2 (09:00→20:37)
[2016-10-14] MEDS: WARFARIN 4 MG TABLET. PO SCH (16:00)
[2016-10-14 16:37] VITALS: BP 103/78
[2016-10-14] MEDS: MIRTAZAPINE 15 MG TABLET PO SCH (19:23)
--- NOTE | 2016-10-14 21:21 | PDOC ---
Exam Blake Demential Exam: Blake Note: Please also refer to the separate dictated note~for this date of service dictated separately.~Patient seen individually. Discussed the patient with Nursing staff reviewed the chart.~Reviewed interim history and current functioning. Reviewed vital signs,~Labs/ Radiology~and current medications noted below. Continue current treatment with the changes noted in the dictated addendum note Assessment: Vital Signs: Vital Signs Date Time Temp Pulse Resp B/P (MAP) Pulse Ox O2 Delivery O2 Flow Rate FiO2 10/14/16 16:37 98.7 70 18 103/78 (86) 95 10/13/16 06:36 Room Air I&O Intake and Output 10/14/16 07:00 Intake Total 960 ml Balance 960 ml Intake Oral 840 ml Tube Feeding 120 ml Current Medications: Meds: Current Medications Acetaminophen (Tylenol) 650 mg PRN Q6HRS PRN PO PAIN / TEMP Last administered on 09/15/16 20:02; Start 09/12/16 at 19:15 Multi-Ingredient Ointment (Analgesic [place]) 1 wilfredo PRN QID PRN TP MUSCLE PAIN; Start 09/12/16 at 19:15 Al Hydroxide/Mg Hydroxide (Mylanta Plus Xs) 15 ml PRN AFTMEALHC PRN PO DYSPEPSIA; Start 09/12/16 at 19:15 Magnesium Hydroxide (Milk Of Magnesia) 2,400 mg PRN QHS PRN PO CONSTIPATION; Start 09/12/16 at 19:15 Divalproex Sodium (Depakote) 250 mg BID PO Last administered on 09/20/16 08:38 ; Start 09/12/16 at 21:00; Stop 09/20/16 at 10:41; Status DC Lorazepam (Ativan) 0.5 mg PRN BID PRN PO ANXIETY / AGITATION Last administered on 10/07/16 19:22; Start 09/12/16 at 19:45; Stop 10/07/16 at 20:59; Status DC Lorazepam (Ativan) 1 mg BID PO Last administered on 09/17/16 08:49; Start 02/19 at 21:00; Stop 09/17/16 at 18:05; Status DC Selegiline HCl (Emsam) 1 patch DAILY TD ; Start 09/13/16 at 09:00; Stop at 18:35; Status DC Buspirone HCl (Buspar) 7.5 mg BID PO Last administered on 09/27/16 09:12; Start 09/12/16 at 21:00; Stop 09/27/16 at 10:31; Status DC Amiodarone HCl (Cordarone) 100 mg DAILY PO Last administered on 10/14/16 08:16 ; Start 09/13/16 at 09:00 Aspirin (Children'S Aspirin) 81 mg DAILY PO Last administered on 10/14/16 08: 17; Start 09/13/16 at 09:00 Famotidine (Pepcid) 20 mg DAILY PO Last administered on 10/14/16 08:17; Start 09/13/16 at 09:00 Lisinopril (Prinivil) 5 mg DAILY PO Last administered on 10/14/16 08:17; Start 09/13/16 at 09:00 Loperamide HCl (Imodium) 2 mg PRN Q4HRS PRN PO DIARRHEA; Start 09/12/16 at 19: 45 Tamsulosin HCl (Flomax) 0.4 mg DAILY PO Last administered on 10/14/16 08:16; Start 09/13/16 at 09:00 Warfarin Sodium (Coumadin) 2.5 mg DAILY16 PO Last administered on 09/14/16 16: 05; Start 09/13/16 at 16:00; Stop 09/15/16 at 15:03; Status DC Multivitamins/ Calcium (Thera-M Plus) 1 tab DAILY PO Last administered on 08:16; Start 09/13/16 at 09:00 Warfarin Sodium (Coumadin) 2 mg DAILY16 PO Last administered on 09/14/16 16:06 ; Start 09/13/16 at 16:00; Stop 09/15/16 at 15:02; Status DC Warfarin Sodium (Coumadin Per Pharmacy) 1 each PRN DAILY PRN MC SEE COMMENTS Last administered on 10/11/16 08:36; Start 09/13/16 at 03:15 Vitamin D (Vitamin D3) 50,000 unit WEEKLY PO Last administered on 10/12/16 09: 45; Start 09/14/16 at 09:00 Selegiline HCl (Eldepryl) 5 mg DAILY PO Last administered on 10/07/16 09:39; Start 09/14/16 at 09:00; Stop 10/07/16 at 20:59; Status DC Trazodone HCl (Desyrel) 50 mg PRN QHS PRN PO INSOMNIA, MAY REPEAT X1 Last administered on 10/08/16 23:18; Start 09/14/16 at 19:15 Nystatin (Nystop) 1 wilfredo BID TP Last administered on 10/13/16 21:00; Start at 09:00 Nystatin (Nystop) 30 wilfredo STK-MED ONCE TP Last administered on 09/14/16 21:27; Start 09/14/16 at 21:27; Stop 09/14/16 at 21:28; Status DC Warfarin Sodium (Coumadin) 3 mg 1X WARF ONCE PO Last administered on 15:48; Start 09/15/16 at 16:00; Stop 09/15/16 at 16:01; Status DC Warfarin Sodium (Coumadin) 2.5 mg 1X ONCE PO Last administered on 09/15/16 15 :47; Start 09/15/16 at 15:15; Stop 09/15/16 at 15:17; Status DC Warfarin Sodium (Coumadin) 5 mg 1X WARF ONCE PO Last administered on 18:16; Start 09/16/16 at 16:00; Stop 09/16/16 at 16:01; Status DC Warfarin Sodium (Coumadin) 2 mg 1X WARF ONCE PO Last administered on 16:02; Start 09/17/16 at 16:00; Stop 09/17/16 at 16:01; Status DC Warfarin Sodium (Coumadin) 2.5 mg 1X WARF ONCE PO Last administered on 16:03; Start 09/17/16 at 16:00; Stop 09/17/16 at 16:01; Status DC Lorazepam (Ativan) 0.5 mg TID PO Last administered on 09/20/16 20:45; Start at 21:00; Stop 09/20/16 at 21:00; Status DC Lorazepam (Ativan) 0.5 mg BID PO Last administered on 09/24/16 19:38; Start at 09:00; Stop 09/24/16 at 21:01; Status DC Lorazepam (Ativan) 0.5 mg DAILY PO Last administered on 09/27/16 09:15; Start 09/25/16 at 09:00; Stop 09/27/16 at 10:39; Status DC Warfarin Sodium (Coumadin) 2.5 mg 1X WARF ONCE PO Last administered on 14:58; Start 09/18/16 at 16:00; Stop 09/18/16 at 16:01; Status DC Warfarin Sodium (Coumadin) 2 mg 1X WARF ONCE PO Last administered on 14:59; Start 09/18/16 at 16:00; Stop 09/18/16 at 16:01; Status DC Sertraline HCl (Zoloft) 25 mg DAILY PO Last administered on 09/24/16 07:43; Start 09/19/16 at 09:00; Stop 09/24/16 at 18:00; Status DC Warfarin Sodium (Coumadin - No Dose Today) 1 each 1X WARF ONCE MC Last administered on 09/19/16 14:14; Start 09/19/16 at 16:00; Stop 09/19/16 at 16:02 ; Status DC Quetiapine Fumarate (SEROquel) 25 mg QHS PO Last administered on 10/03/16 19: 12; Start 09/20/16 at 21:00; Stop 10/04/16 at 10:51; Status DC Warfarin Sodium (Coumadin) 2.5 mg 1X WARF ONCE PO Last administered on 16:31; Start 09/20/16 at 16:00; Stop 09/20/16 at 16:01; Status DC Valproic Acid (Depakene) 250 mg BID PO Last administered on 09/25/16 09:29; Start 09/20/16 at 21:00; Stop 09/25/16 at 18:06; Status DC Warfarin Sodium (Coumadin) 2.5 mg 1X WARF ONCE PO Last administered on 16:02; Start 09/21/16 at 16:00; Stop 09/21/16 at 16:01; Status DC Warfarin Sodium (Coumadin) 1 mg 1X WARF ONCE PO Last administered on 16:02; Start 09/21/16 at 16:00; Stop 09/21/16 at 16:01; Status DC Mirtazapine (Remeron) 7.5 mg QHS PO Last administered on 09/26/16 19:21; Start 09/21/16 at 21:00; Stop 09/27/16 at 10:31; Status DC Warfarin Sodium (Coumadin) 4 mg 1X WARF ONCE PO Last administered on 16:31; Start 09/22/16 at 16:00; Stop 09/22/16 at 16:01; Status DC Warfarin Sodium (Coumadin) 4 mg 1X WARF ONCE PO Last administered on 15:42; Start 09/23/16 at 16:00; Stop 09/23/16 at 16:01; Status DC Warfarin Sodium (Coumadin) 4 mg DAILY16 PO Last administered on 09/25/16 16:00 ; Start 09/24/16 at 16:00; Stop 09/26/16 at 08:25; Status DC Sertraline HCl (Zoloft) 50 mg DAILY PO Last administered on 10/03/16 08:52; Start 09/25/16 at 09:00; Stop 10/03/16 at 14:04; Status DC Valproic Acid (Depakene) 375 mg BID PO Last administered on 10/03/16 08:53; Start 09/25/16 at 21:00; Stop 10/03/16 at 18:33; Status DC Warfarin Sodium (Coumadin) 2 mg DAILY16 PO Last administered on 10/08/16 16:21 ; Start 09/26/16 at 16:00; Stop 10/08/16 at 16:53; Status DC Warfarin Sodium (Coumadin) 2.5 mg DAILY16 PO Last administered on 10/08/16 16: 21; Start 09/26/16 at 16:00; Stop 10/08/16 at 16:53; Status DC Quetiapine Fumarate (SEROquel) 12.5 mg BID92 PO Last administered on 09/30/16 13:36; Start 09/27/16 at 09:00; Stop 09/30/16 at 22:00; Status DC Buspirone HCl (Buspar) 10 mg TID PO Last administered on 10/14/16 19:23; Start 09/27/16 at 14:00 Mirtazapine (Remeron) 15 mg QHS PO Last administered on 10/14/16 19:23; Start 09/27/16 at 21:00 Lorazepam (Ativan) 0.5 mg DAILY PO Last administered on 10/14/16 08:17; Start 09/28/16 at 09:00 Quetiapine Fumarate (SEROquel) 12.5 mg 0900,1400,1700 PO Last administered on 08:52; Start 10/01/16 at 09:00; Stop 10/03/16 at 14:04; Status DC Olanzapine (ZyPREXA ZYDIS) 2.5 mg PRN Q2HR PRN PO PSYCHOSIS Last administered on 10/03/16 11:54; Start 10/03/16 at 10:00 Quetiapine Fumarate (SEROquel) 25 mg 0900,1400,1700 PO Last administered on 10/04 10:01; Start 10/03/16 at 17:00; Stop 10/04/16 at 10:51; Status DC Hydroxyzine HCl (Atarax) 50 mg PRN Q2HR PRN PO ANXIETY / AGITATION Last administered on 10/06/16 11:50; Start 10/03/16 at 14:15 Valproic Acid (Depakene) 500 mg BID PO Last administered on 10/14/16 19:23; Start 10/03/16 at 21:00 Risperidone (RisperDAL) 0.25 mg BID PO Last administered on 10/09/16 09:01; Start 10/04/16 at 21:00; Stop 10/09/16 at 18:21; Status DC Levothyroxine Sodium (Synthroid) 12.5 mcg DAILY06 PO Last administered on 05:38; Start 10/07/16 at 06:00 Lorazepam (Ativan) 0.25 mg PRN Q2HR PRN PO ANXIETY / AGITATION Last administered on 10/10/16 05:05; Start 10/07/16 at 21:15 Risperidone (RisperDAL) 0.375 mg DAILY PO Last administered on 10/14/16 08:17 ; Start 10/10/16 at 09:00 Risperidone (RisperDAL) 0.25 mg QHS PO Last administered on 10/14/16 19:23; Start 10/09/16 at 21:00 Warfarin Sodium (Coumadin - No Dose Today) 1 each 1X WARF ONCE MC Last administered on 10/10/16 14:23; Start 10/10/16 at 16:00; Stop 10/10/16 at 16:01; Status DC Haloperidol Lactate (Haldol) 5 mg DAILY IM Last administered on 10/12/16 08:42 ; Start 10/10/16 at 08:00; Stop 10/12/16 at 18:58; Status DC Lorazepam (Ativan) 0.5 mg DAILY IM Last administered on 10/12/16 08:43; Start 10/10/16 at 08:00; Stop 10/12/16 at 18:43; Status DC Warfarin Sodium (Coumadin) 4 mg DAILY16 PO Last administered on 10/14/16 16:00 ; Start 10/11/16 at 16:00 Fluvoxamine Maleate (Luvox) 25 mg HS PO Last administered on 10/14/16 19:23; Start 10/11/16 at 21:00 Haloperidol (Haldol) 2.5 mg DAILY PO Last administered on 10/14/16 08:16; Start 10/13/16 at 09:00 Active Scripts Active Reported Therems-M (Multivits, W-Fe,Other Min) 1 Each Tablet 1 Each PO DAILY Tamsulosin Hcl 0.4 Mg Cap.er.24h 0.4 Mg PO DAILY Lisinopril 5 Mg Tablet 5 Mg PO DAILY Famotidine 20 Mg Tablet 20 Mg PO DAILY Emsam (Selegiline) 1 Each Patch.td24 1 Each TD DAILY Aspirin 81 Mg Tab.chew 81 Mg PO DAILY Amiodarone Hcl 200 Mg Tablet 100 Mg PO DAILY Depakote (Divalproex Sodium) 250 Mg Tablet.dr 250 Mg PO BID Coumadin (Warfarin Sodium) 4 Mg Tablet 4.5 Mg PO DAILY Ativan (Lorazepam) 0.5 Mg Tablet 0.5 Mg PO PRN BID PRN Imodium A-D (Loperamide HCl) 2 Mg Capsule 2 Mg PO PRN PRN MDD 12 mg Ativan (Lorazepam) 1 Mg Tablet 1 Mg PO BID Buspirone Hcl 7.5 Mg Tablet 7.5 Mg PO BID Diagnosis: Problems: (1) Dementia (2) Encounter for medical screening examination (3) Anxiety disorder (4) Impulse control disorder (5) Dementia, vascular, with depression (6) Dementia, vascular, with delusions (7) Dementia in Alzheimer's disease with depression (8) Dementia in Alzheimer's disease with delusions LINDSAY BROWN MD Oct 14, 2016 21:21
--- NOTE | 2016-10-14 23:04 | NUR ---
Behavior Intervention Response and Plan: BIRP Note: Behavior: Assumed Care of patient, patient located in Day Room at shift change. Patient exhibited the following behavior Calm, Disorganized, Withdrawn. Brief assessment on rounds of vital signs, medication needs, lab studies, and pain. Treatment plan problems 1 and 2. Intervention: Patient assessed and the following interventions initiated safety checks 15 Minute Checks Cognitive Assessment , Head to toe Assessment , Medications. Response: After interactions and interventions patient responded in the following manner, Calm , Compliant ,Cooperative. Continue to assess behaviors and condition will continue to monitor throughout the shift as needed. 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 Continue to assess patient for changes in above assessment. Monitor for medication needs, pain, and safety concerns. Hourly rounding performed to ensure safe environment.
--- NOTE | 2016-10-14 23:34 | PN ---
DATE: 10/13/2016 PSYCHIATRIC PROGRESS NOTE This is a late entry of 10/13/2016 covers elements not covered in my initial note. SUBJECTIVE: The patient has been pleasant confused. His visited they had 54th wedding anniversary the day before on 10/12/2016, but he did not remember it as I questioned him. REVIEW OF SYSTEMS: No CV, , pulmonary, eye, ENT system symptoms on review. Reliability poor. MENTAL STATUS EXAM: Oriented to himself. Insight, judgment, recent and remote memory, attention, concentration, fund of knowledge poor, consistent with his diagnosis mentioned in my initial note. PLAN: Continue psychotropics mentioned in my initial note. MAN Phoenix BROWN MD DR: JEREL/tavo JOB#: [id number] / [id number]
--- NOTE | 2016-10-14 23:56 | PN ---
DATE: 10/12/2016 This late entry for 10/12/2016 covers elements not covered in my initial note. SUBJECTIVE: The patient received his IM Haldol, Ativan on 10/12/2016, calmer, confused. We will change the IM to p.o. 2.5 mg Haldol daily. We will reduce this in due course. REVIEW OF SYSTEMS: No CV, , pulmonary, eye, ENT system symptoms on review. Reliability poor. MENTAL STATUS EXAM: Oriented to himself. Insight, judgment, recent and remote memory, attention, concentration, fund of knowledge poor, consistent with his diagnosis mentioned in my initial note. PLAN: Continue psychotropics mentioned in my initial note. Adjust as indicated clinically. MAN Phoenix BROWN MD DR: JEREL/tavo JOB#: [id number] / [id number]
[2016-10-15] MEDS: LEVOTHYROXINE 25 MCG TABLET. PO SCH (06:16)
[2016-10-15 06:26] VITALS: BP 126/76
[2016-10-15] MEDS: AMIODARONE HCL 200 MG TABLET PO SCH (08:47)
[2016-10-15] MEDS: TAMSULOSIN 0.4 MG CAP.ER.24H. PO SCH (08:47)
[2016-10-15] MEDS: ASPIRIN 81 MG TAB.CHEW PO SCH (08:47)
[2016-10-15] MEDS: HALOPERIDOL 5 MG TABLET PO SCH (08:47)
[2016-10-15] MEDS: busPIRone 10 MG TABLET. PO SCH ×3 (08:47→19:34)
[2016-10-15] MEDS: LORazepam 0.5 MG TABLET PO SCH (08:47)
[2016-10-15] MEDS: MULTIVITAMIN with MINERAL TABLET. PO SCH (08:48)
[2016-10-15] MEDS: FAMOTIDINE 20 MG TABLET PO SCH (08:48)
[2016-10-15] MEDS: LISINOPRIL 5 MG TABLET. PO SCH (08:48)
[2016-10-15] MEDS: risperiDONE 0.25 MG TABLET. PO SCH ×2 (08:48→19:34)
[2016-10-15] MEDS: NYSTATIN TOPICAL POWDER 30GM BOTTLE. TP SCH ×2 (09:00→19:34)
[2016-10-15] MEDS: VALPROATE ACID 250 MG/5 ML ORAL SOLUTION PO SCH ×2 (09:05→19:34)
--- NOTE | 2016-10-15 09:07 | NUR ---
Pharmacy Warfarin Dosing Note S:Pharmacy consulted to assist with anticoagulation therapy started 09/13/16 with target INR: 2 -3 O:ABBEY MATHIS is a 76 year old M with Stroke LABS: Last INR: 1.9 Last HGB: 11.6 Last HCT: 34.9 Last PLT: 143 Last dose of 4 mg given on 10/14/16 at 1600 Previous Regimen: 4.5MG DAILY HOME DOSE. Vitamin K given: N Drug Interaction Changes: Same Interacting Drug Ongoing Drug Interactions: AMIODARONE We will hold warfarin dose for tomorrow and monitor INR series, patient has no new interacting medications in the last few days and diet is regular, skips some meals but otherwise eats regularly. A:INR Below desired Range. Target Range for this patient is: 2 -3 P: Warfarin dose: 4.5MG Today at 1600 Bridge Therapy: None Next INR due 10/16/16 @ 0600 Pharmacy anticoagulation service will continue to follow. [facility], 10/15/16 [id number]
--- NOTE | 2016-10-15 09:20 | NUR ---
Behavior Intervention Response and Plan: BIRP Note: Behavior: Assumed Care of patient, patient located in Day Room at shift change. Patient exhibited the following behavior Disorganized, Delusions, Cooperative. Brief assessment on rounds of vital signs, medication needs, lab studies, and pain. Treatment plan problems 1 & 2. Intervention: Patient assessed and the following interventions initiated safety checks 15 Minute Checks Cognitive Assessment , Head to toe Assessment , Medications. Response: After interactions and interventions patient responded in the following manner, Calm , Appropriate ,Compliant. Continue to assess behaviors and condition will continue to monitor throughout the shift as needed. Plan: Continue to monitor Master Treatment Plan for patient's progress toward short term goals of Decreased Agitation, Decreased Aggression, correction goals to return to previous living setting vs placement. Continue to assess patient for changes in above assessment. Monitor for medication needs, pain, and safety concerns. Hourly rounding performed to ensure safe environment.
--- NOTE | 2016-10-15 10:00 | NUR ---
THERAPEUTIC RECREATION GROUP NOTE TITLE :Color Your Flag ACTIVITY : Arts and Crafts GOAL : Increase creativity and fine motor functioning, reduce stress, anxiety. DURATION : Available for 90 minutes RESPONSE : Full participation. Pt. needed direction, examples and encouragement to start drawing. He stayed engaged with minimal prompting. He was self critical and was apologetic. He explained his drawing, Jose Manning was his inspiration. He smiled often and was pleasant to have in group.
--- NOTE | 2016-10-15 12:00 | NUR ---
SW spoke w/Pt's during noon visiting hours regarding the CARE Assessment being completed and a referral sent to [facility]su. PT's prefers for Pt. to be able to return to [facility], however, she is worried they will not be able to manage PT's .
--- NOTE | 2016-10-15 13:30 | NUR ---
THERAPEUTIC RECREATION GROUP NOTE TITLE :Musical Flags ACTIVITY : Activities and Games GOAL : Increase alertness/focus, socialization, group cohesion DURATION : 40 Minutes RESPONSE : Full participation. Pt. answered every question when the flag came around to him. He has a smile on his face often and waved the flags after the activity, copying ADULT PAROLE OFFICER's moves. He was alert the entire time and needed no prompting to stay on task.
[2016-10-15 15:59] VITALS: BP 158/83
[2016-10-15] MEDS ORDERED: WARFARIN 2.5 MG TABLET. PO ONE (16:00)
[2016-10-15] MEDS ORDERED: WARFARIN 2 MG TABLET. PO ONE (16:00)
[2016-10-15] MEDS: MIRTAZAPINE 15 MG TABLET PO SCH (19:34)
--- NOTE | 2016-10-15 22:50 | NUR ---
Behavior Intervention Response and Plan: BIRP Note: Behavior: Assumed Care of patient, patient located in Hallway at shift change. Patient exhibited the following behavior Wandering, Restless, Exit Seeking. Brief assessment on rounds of vital signs, medication needs, lab studies, and pain. Treatment plan problems 1 and 2. Intervention: Patient assessed and the following interventions initiated safety checks 15 Minute Checks Cognitive Assessment , Head to toe Assessment , Medications. Response: After interactions and interventions patient responded in the following manner, Wandering , Compliant ,Cooperative. Continue to assess behaviors and condition will continue to monitor throughout the shift as needed. 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 Continue to assess patient for changes in above assessment. Monitor for medication needs, pain, and safety concerns. Hourly rounding performed to ensure safe environment.
--- NOTE | 2016-10-15 23:34 | PDOC ---
Exam Blake Demential Exam: Blake Note: Please also refer to the separate dictated note~for this date of service dictated separately.~Patient seen individually. Discussed the patient with Nursing staff reviewed the chart.~Reviewed interim history and current functioning. Reviewed vital signs,~Labs/ Radiology~and current medications noted below. Continue current treatment with the changes noted in the dictated addendum note Assessment: Vital Signs: Vital Signs Date Time Temp Pulse Resp B/P (MAP) Pulse Ox O2 Delivery O2 Flow Rate FiO2 10/15/16 15:59 98.8 70 16 158/83 (108) 95 Room Air I&O Intake and Output 10/15/16 07:00 Intake Total 1020 ml Balance 1020 ml Intake Oral 1020 ml Labs: Laboratory Tests Test 10/15/16 06:16 Prothrombin Time 20.0 SEC (9.4-11.4) H Prothrombin Time INR 1.9 (0.9-1.1) H Current Medications: Meds: Current Medications Acetaminophen (Tylenol) 650 mg PRN Q6HRS PRN PO PAIN / TEMP Last administered on 09/15/16 20:02; Start 09/12/16 at 19:15 Multi-Ingredient Ointment (Analgesic Inman) 1 wilfredo PRN QID PRN TP MUSCLE PAIN; Start 09/12/16 at 19:15 Al Hydroxide/Mg Hydroxide (Mylanta Plus Xs) 15 ml PRN AFTMEALHC PRN PO DYSPEPSIA; Start 09/12/16 at 19:15 Magnesium Hydroxide (Milk Of Magnesia) 2,400 mg PRN QHS PRN PO CONSTIPATION; Start 09/12/16 at 19:15 Divalproex Sodium (Depakote) 250 mg BID PO Last administered on 09/20/16 08:38 ; Start 09/12/16 at 21:00; Stop 09/20/16 at 10:41; Status DC Lorazepam (Ativan) 0.5 mg PRN BID PRN PO ANXIETY / AGITATION Last administered on 10/07/16 19:22; Start 09/12/16 at 19:45; Stop 10/07/16 at 20:59; Status DC Lorazepam (Ativan) 1 mg BID PO Last administered on 09/17/16 08:49; Start 02/19 at 21:00; Stop 09/17/16 at 18:05; Status DC Selegiline HCl (Emsam) 1 patch DAILY TD ; Start 09/13/16 at 09:00; Stop at 18:35; Status DC Buspirone HCl (Buspar) 7.5 mg BID PO Last administered on 09/27/16 09:12; Start 09/12/16 at 21:00; Stop 09/27/16 at 10:31; Status DC Amiodarone HCl (Cordarone) 100 mg DAILY PO Last administered on 10/15/16 08:47 ; Start 09/13/16 at 09:00 Aspirin (Children'S Aspirin) 81 mg DAILY PO Last administered on 10/15/16 08: 47; Start 09/13/16 at 09:00 Famotidine (Pepcid) 20 mg DAILY PO Last administered on 10/15/16 08:48; Start 09/13/16 at 09:00 Lisinopril (Prinivil) 5 mg DAILY PO Last administered on 10/15/16 08:48; Start 09/13/16 at 09:00 Loperamide HCl (Imodium) 2 mg PRN Q4HRS PRN PO DIARRHEA; Start 09/12/16 at 19: 45 Tamsulosin HCl (Flomax) 0.4 mg DAILY PO Last administered on 10/15/16 08:47; Start 09/13/16 at 09:00 Warfarin Sodium (Coumadin) 2.5 mg DAILY16 PO Last administered on 09/14/16 16: 05; Start 09/13/16 at 16:00; Stop 09/15/16 at 15:03; Status DC Multivitamins/ Calcium (Thera-M Plus) 1 tab DAILY PO Last administered on 08:48; Start 09/13/16 at 09:00 Warfarin Sodium (Coumadin) 2 mg DAILY16 PO Last administered on 09/14/16 16:06 ; Start 09/13/16 at 16:00; Stop 09/15/16 at 15:02; Status DC Warfarin Sodium (Coumadin Per Pharmacy) 1 each PRN DAILY PRN MC SEE COMMENTS Last administered on 10/15/16 09:06; Start 09/13/16 at 03:15 Vitamin D (Vitamin D3) 50,000 unit WEEKLY PO Last administered on 10/12/16 09: 45; Start 09/14/16 at 09:00 Selegiline HCl (Eldepryl) 5 mg DAILY PO Last administered on 10/07/16 09:39; Start 09/14/16 at 09:00; Stop 10/07/16 at 20:59; Status DC Trazodone HCl (Desyrel) 50 mg PRN QHS PRN PO INSOMNIA, MAY REPEAT X1 Last administered on 10/08/16 23:18; Start 09/14/16 at 19:15 Nystatin (Nystop) 1 wilfredo BID TP Last administered on 10/13/16 21:00; Start at 09:00 Nystatin (Nystop) 30 wilfredo STK-MED ONCE TP Last administered on 09/14/16 21:27; Start 09/14/16 at 21:27; Stop 09/14/16 at 21:28; Status DC Warfarin Sodium (Coumadin) 3 mg 1X WARF ONCE PO Last administered on 15:48; Start 09/15/16 at 16:00; Stop 09/15/16 at 16:01; Status DC Warfarin Sodium (Coumadin) 2.5 mg 1X ONCE PO Last administered on 09/15/16 15 :47; Start 09/15/16 at 15:15; Stop 09/15/16 at 15:17; Status DC Warfarin Sodium (Coumadin) 5 mg 1X WARF ONCE PO Last administered on 18:16; Start 09/16/16 at 16:00; Stop 09/16/16 at 16:01; Status DC Warfarin Sodium (Coumadin) 2 mg 1X WARF ONCE PO Last administered on 16:02; Start 09/17/16 at 16:00; Stop 09/17/16 at 16:01; Status DC Warfarin Sodium (Coumadin) 2.5 mg 1X WARF ONCE PO Last administered on 16:03; Start 09/17/16 at 16:00; Stop 09/17/16 at 16:01; Status DC Lorazepam (Ativan) 0.5 mg TID PO Last administered on 09/20/16 20:45; Start at 21:00; Stop 09/20/16 at 21:00; Status DC Lorazepam (Ativan) 0.5 mg BID PO Last administered on 09/24/16 19:38; Start at 09:00; Stop 09/24/16 at 21:01; Status DC Lorazepam (Ativan) 0.5 mg DAILY PO Last administered on 09/27/16 09:15; Start 09/25/16 at 09:00; Stop 09/27/16 at 10:39; Status DC Warfarin Sodium (Coumadin) 2.5 mg 1X WARF ONCE PO Last administered on 14:58; Start 09/18/16 at 16:00; Stop 09/18/16 at 16:01; Status DC Warfarin Sodium (Coumadin) 2 mg 1X WARF ONCE PO Last administered on 14:59; Start 09/18/16 at 16:00; Stop 09/18/16 at 16:01; Status DC Sertraline HCl (Zoloft) 25 mg DAILY PO Last administered on 09/24/16 07:43; Start 09/19/16 at 09:00; Stop 09/24/16 at 18:00; Status DC Warfarin Sodium (Coumadin - No Dose Today) 1 each 1X WARF ONCE MC Last administered on 09/19/16 14:14; Start 09/19/16 at 16:00; Stop 09/19/16 at 16:02 ; Status DC Quetiapine Fumarate (SEROquel) 25 mg QHS PO Last administered on 10/03/16 19: 12; Start 09/20/16 at 21:00; Stop 10/04/16 at 10:51; Status DC Warfarin Sodium (Coumadin) 2.5 mg 1X WARF ONCE PO Last administered on 16:31; Start 09/20/16 at 16:00; Stop 09/20/16 at 16:01; Status DC Valproic Acid (Depakene) 250 mg BID PO Last administered on 09/25/16 09:29; Start 09/20/16 at 21:00; Stop 09/25/16 at 18:06; Status DC Warfarin Sodium (Coumadin) 2.5 mg 1X WARF ONCE PO Last administered on 16:02; Start 09/21/16 at 16:00; Stop 09/21/16 at 16:01; Status DC Warfarin Sodium (Coumadin) 1 mg 1X WARF ONCE PO Last administered on 16:02; Start 09/21/16 at 16:00; Stop 09/21/16 at 16:01; Status DC Mirtazapine (Remeron) 7.5 mg QHS PO Last administered on 09/26/16 19:21; Start 09/21/16 at 21:00; Stop 09/27/16 at 10:31; Status DC Warfarin Sodium (Coumadin) 4 mg 1X WARF ONCE PO Last administered on 16:31; Start 09/22/16 at 16:00; Stop 09/22/16 at 16:01; Status DC Warfarin Sodium (Coumadin) 4 mg 1X WARF ONCE PO Last administered on 15:42; Start 09/23/16 at 16:00; Stop 09/23/16 at 16:01; Status DC Warfarin Sodium (Coumadin) 4 mg DAILY16 PO Last administered on 09/25/16 16:00 ; Start 09/24/16 at 16:00; Stop 09/26/16 at 08:25; Status DC Sertraline HCl (Zoloft) 50 mg DAILY PO Last administered on 10/03/16 08:52; Start 09/25/16 at 09:00; Stop 10/03/16 at 14:04; Status DC Valproic Acid (Depakene) 375 mg BID PO Last administered on 10/03/16 08:53; Start 09/25/16 at 21:00; Stop 10/03/16 at 18:33; Status DC Warfarin Sodium (Coumadin) 2 mg DAILY16 PO Last administered on 10/08/16 16:21 ; Start 09/26/16 at 16:00; Stop 10/08/16 at 16:53; Status DC Warfarin Sodium (Coumadin) 2.5 mg DAILY16 PO Last administered on 10/08/16 16: 21; Start 09/26/16 at 16:00; Stop 10/08/16 at 16:53; Status DC Quetiapine Fumarate (SEROquel) 12.5 mg BID92 PO Last administered on 09/30/16 13:36; Start 09/27/16 at 09:00; Stop 09/30/16 at 22:00; Status DC Buspirone HCl (Buspar) 10 mg TID PO Last administered on 10/15/16 19:34; Start 09/27/16 at 14:00 Mirtazapine (Remeron) 15 mg QHS PO Last administered on 10/15/16 19:34; Start 09/27/16 at 21:00 Lorazepam (Ativan) 0.5 mg DAILY PO Last administered on 10/15/16 08:47; Start 09/28/16 at 09:00 Quetiapine Fumarate (SEROquel) 12.5 mg 0900,1400,1700 PO Last administered on 08:52; Start 10/01/16 at 09:00; Stop 10/03/16 at 14:04; Status DC Olanzapine (ZyPREXA ZYDIS) 2.5 mg PRN Q2HR PRN PO PSYCHOSIS Last administered on 10/03/16 11:54; Start 10/03/16 at 10:00 Quetiapine Fumarate (SEROquel) 25 mg 0900,1400,1700 PO Last administered on 10/04 10:01; Start 10/03/16 at 17:00; Stop 10/04/16 at 10:51; Status DC Hydroxyzine HCl (Atarax) 50 mg PRN Q2HR PRN PO ANXIETY / AGITATION Last administered on 10/06/16 11:50; Start 10/03/16 at 14:15 Valproic Acid (Depakene) 500 mg BID PO Last administered on 10/15/16 19:34; Start 10/03/16 at 21:00 Risperidone (RisperDAL) 0.25 mg BID PO Last administered on 10/09/16 09:01; Start 10/04/16 at 21:00; Stop 10/09/16 at 18:21; Status DC Levothyroxine Sodium (Synthroid) 12.5 mcg DAILY06 PO Last administered on 06:16; Start 10/07/16 at 06:00 Lorazepam (Ativan) 0.25 mg PRN Q2HR PRN PO ANXIETY / AGITATION Last administered on 10/10/16 05:05; Start 10/07/16 at 21:15 Risperidone (RisperDAL) 0.375 mg DAILY PO Last administered on 10/15/16 08:48 ; Start 10/10/16 at 09:00 Risperidone (RisperDAL) 0.25 mg QHS PO Last administered on 10/15/16 19:34; Start 10/09/16 at 21:00 Warfarin Sodium (Coumadin - No Dose Today) 1 each 1X WARF ONCE MC Last administered on 10/10/16 14:23; Start 10/10/16 at 16:00; Stop 10/10/16 at 16:01; Status DC Haloperidol Lactate (Haldol) 5 mg DAILY IM Last administered on 10/12/16 08:42 ; Start 10/10/16 at 08:00; Stop 10/12/16 at 18:58; Status DC Lorazepam (Ativan) 0.5 mg DAILY IM Last administered on 10/12/16 08:43; Start 10/10/16 at 08:00; Stop 10/12/16 at 18:43; Status DC Warfarin Sodium (Coumadin) 4 mg DAILY16 PO Last administered on 10/14/16 16:00 ; Start 10/11/16 at 16:00; Stop 10/15/16 at 09:01; Status DC Fluvoxamine Maleate (Luvox) 25 mg HS PO Last administered on 10/14/16 19:23; Start 10/11/16 at 21:00; Stop 10/15/16 at 17:44; Status DC Haloperidol (Haldol) 2.5 mg DAILY PO Last administered on 10/15/16 08:47; Start 10/13/16 at 09:00; Stop 10/15/16 at 19:00; Status DC Warfarin Sodium (Coumadin) 2.5 mg 1X WARF ONCE PO Last administered on 16:22; Start 10/15/16 at 16:00; Stop 10/15/16 at 16:01; Status DC Warfarin Sodium (Coumadin) 2 mg 1X WARF ONCE PO Last administered on 16:22; Start 10/15/16 at 16:00; Stop 10/15/16 at 16:01; Status DC Fluvoxamine Maleate (Luvox) 50 mg HS PO Last administered on 10/15/16 19:34; Start 10/15/16 at 21:00 Active Scripts Active Reported Therems-M (Multivits,Th W-Fe,Other Min) 1 Each Tablet 1 Each PO DAILY Tamsulosin Hcl 0.4 Mg Cap.er.24h 0.4 Mg PO DAILY Lisinopril 5 Mg Tablet 5 Mg PO DAILY Famotidine 20 Mg Tablet 20 Mg PO DAILY Emsam (Selegiline) 1 Each Patch.td24 1 Each TD DAILY Aspirin 81 Mg Tab.chew 81 Mg PO DAILY Amiodarone Hcl 200 Mg Tablet 100 Mg PO DAILY Depakote (Divalproex Sodium) 250 Mg Tablet.dr 250 Mg PO BID Coumadin (Warfarin Sodium) 4 Mg Tablet 4.5 Mg PO DAILY Ativan (Lorazepam) 0.5 Mg Tablet 0.5 Mg PO PRN BID PRN Imodium A-D (Loperamide HCl) 2 Mg Capsule 2 Mg PO PRN PRN MDD 12 mg Ativan (Lorazepam) 1 Mg Tablet 1 Mg PO BID Buspirone Hcl 7.5 Mg Tablet 7.5 Mg PO BID Diagnosis: Problems: (1) Dementia (2) Anxiety disorder (3) Impulse control disorder (4) Dementia, vascular, with depression (5) Dementia, vascular, with delusions (6) Dementia in Alzheimer's disease with depression (7) Dementia in Alzheimer's disease with delusions LINDSAY BROWN MD Oct 15, 2016 23:34
--- NOTE | 2016-10-16 00:46 | PN ---
DATE: 10/14/2016 PSYCHIATRIC PROGRESS NOTE This is a late entry of 10/14/2016 covers elements not covered in my initial note. SUBJECTIVE: The patient has been confused. His and daughter visited 10/14/2016, but he did not remember this by the time I met with him in the evening. REVIEW OF SYSTEMS: No CV, , pulmonary, eye, ENT system symptoms on review. Reliability poor. MENTAL STATUS EXAM: Oriented to himself. Insight, judgment, recent and remote memory, attention, concentration, fund of knowledge poor, consistent with his diagnosis mentioned in my initial note. IMPRESSION: Major neurocognitive disorder, Alzheimer, vascular with depression, delusion and behavioral disturbance; anxiety disorder, unspecified; impulse control disorder, unspecified. PLAN: Continue current psychotropics including Haldol 2.5 mg daily, but in a day or so we will consider stopping it. He is also on Luvox 25 mg at bedtime and we will increase it to 50 mg a day. MAN Phoenix BROWN MD DR: JEREL/tavo JOB#: [id number] / [id number]
[2016-10-16] MEDS: LEVOTHYROXINE 25 MCG TABLET. PO SCH (05:01)
[2016-10-16 06:10] VITALS: BP 152/92
[2016-10-16] MEDS: FAMOTIDINE 20 MG TABLET PO SCH (08:35)
[2016-10-16] MEDS: AMIODARONE HCL 200 MG TABLET PO SCH (08:36)
[2016-10-16] MEDS: MULTIVITAMIN with MINERAL TABLET. PO SCH (08:36)
[2016-10-16] MEDS: VALPROATE ACID 250 MG/5 ML ORAL SOLUTION PO SCH ×2 (08:36→19:34)
[2016-10-16] MEDS: busPIRone 10 MG TABLET. PO SCH ×3 (08:37→19:34)
[2016-10-16] MEDS: risperiDONE 0.25 MG TABLET. PO SCH ×2 (08:37→19:34)
[2016-10-16] MEDS: TAMSULOSIN 0.4 MG CAP.ER.24H. PO SCH (08:37)
[2016-10-16] MEDS: LISINOPRIL 5 MG TABLET. PO SCH (08:37)
[2016-10-16] MEDS: ASPIRIN 81 MG TAB.CHEW PO SCH (08:37)
[2016-10-16] MEDS: NYSTATIN TOPICAL POWDER 30GM BOTTLE. TP SCH ×2 (08:38→19:33)
[2016-10-16] MEDS: LORazepam 0.5 MG TABLET PO SCH (08:38)
--- NOTE | 2016-10-16 09:00 | NUR ---
THERAPEUTIC RECREATION GROUP NOTE TITLE :Beach Ball Bop ACTIVITY : Movement/ Exercise GOAL : Increase morale, attention, endurance, socialization. Decrease stress/anxiety. DURATION : 50 Minutes RESPONSE : Full participation. Pt. was agreeable when invited to join the group. He waited patiently when it was not his turn. He socialized with othersas he waited. He had good hand eye coordination and smiled often.
--- NOTE | 2016-10-16 11:13 | NUR ---
Behavior Intervention Response and Plan: BIRP Note: Behavior: Assumed Care of patient, patient located in Day Room at shift change. Patient exhibited the following behavior Wandering, Social, Calm. Brief assessment on rounds of vital signs, medication needs, lab studies, and pain. Treatment plan problems . Intervention: Patient assessed and the following interventions initiated safety checks 15 Minute Checks Medications , Oral Hydration , Head to toe Assessment. Response: After interactions and interventions patient responded in the following manner, Interactive , Cooperative ,Cooperative. Continue to assess behaviors and condition will continue to monitor throughout the shift as needed. Plan: Continue to monitor Master Treatment Plan for patient's progress toward short term goals of Decreased Agitation, Decreased Aggression, detention goals to return to previous living setting vs placement. Continue to assess patient for changes in above assessment. Monitor for medication needs, pain, and safety concerns. Hourly rounding performed to ensure safe environment.
--- NOTE | 2016-10-16 11:30 | NUR ---
THERAPEUTIC RECREATION GROUP NOTE TITLE :Movement to Music: Flexibility ACTIVITY : Movement/ Exercise GOAL : Increase morale, attention, flexibility. Decrease stress/anxiety. DURATION : 20 Minutes RESPONSE : Full participation. Pt. was asleep for the first half but woke up and joined the moves after a little encouragement. He had a smile on his face and followed the moves with occasional prompting.
--- NOTE | 2016-10-16 12:46 | NUR ---
Pharmacy Warfarin Dosing Note S:Pharmacy consulted to assist with anticoagulation therapy started 09/13/16 with target INR: 2 -3 O:ABBEY MATHIS is a 76 year old M with history of stroke LABS: Last INR: 2.2 Last HGB: 11.6 Last HCT: 34.9 Last PLT: 143 Last dose of 4.5MG given on 10/15/16 Drug Interaction Changes: Same Interacting Drug Ongoing Drug Interactions: AMIODARONE/FLUVOXAMINE A:INR is within desired range. We will try alternating coumadin 4.5mg with 4mg daily. Target Range for this patient is: 2 -3 P: Warfarin dose: Coumadin 4mg po today at 1600 Bridge Therapy: None Next INR due 10/17/16 Pharmacy anticoagulation service will continue to follow. CHAYO ACEVEDO [facility] 10/16/16 [id number]
--- NOTE | 2016-10-16 15:40 | NUR ---
[facility] out to [facility] today. Faith from [facility] spoke w/Pt's during the noon visiting hour while at this facility. SW will wait to hear back from Faith regarding possible acceptance.
[2016-10-16] MEDS ORDERED: WARFARIN 4 MG TABLET. PO ONE (16:00)
[2016-10-16 16:09] VITALS: BP 107/71
[2016-10-16] MEDS: MIRTAZAPINE 15 MG TABLET PO SCH (19:34)
--- NOTE | 2016-10-16 19:53 | PDOC ---
Exam Blake Demential Exam: Blake Note: Please also refer to the separate dictated note~for this date of service dictated separately.~Patient seen individually. Discussed the patient with Nursing staff reviewed the chart.~Reviewed interim history and current functioning. Reviewed vital signs,~Labs/ Radiology~and current medications noted below. Continue current treatment with the changes noted in the dictated addendum note Assessment: Vital Signs: Vital Signs Date Time Temp Pulse Resp B/P (MAP) Pulse Ox O2 Delivery O2 Flow Rate FiO2 10/16/16 16:09 97.7 70 21 107/71 (83) 96 10/16/16 06:10 Room Air I&O Intake and Output 10/16/16 07:00 Intake Total 840 ml Balance 840 ml Intake Oral 840 ml Labs: Laboratory Tests Test 10/16/16 06:16 Prothrombin Time 23.0 SEC (9.4-11.4) H Prothrombin Time INR 2.2 (0.9-1.1) H Current Medications: Meds: Current Medications Acetaminophen (Tylenol) 650 mg PRN Q6HRS PRN PO PAIN / TEMP Last administered on 09/15/16 20:02; Start 09/12/16 at 19:15 Multi-Ingredient Ointment (Analgesic [place]) 1 wilfredo PRN QID PRN TP MUSCLE PAIN; Start 09/12/16 at 19:15 Al Hydroxide/Mg Hydroxide (Mylanta Plus Xs) 15 ml PRN AFTMEALHC PRN PO DYSPEPSIA; Start 09/12/16 at 19:15 Magnesium Hydroxide (Milk Of Magnesia) 2,400 mg PRN QHS PRN PO CONSTIPATION; Start 09/12/16 at 19:15 Divalproex Sodium (Depakote) 250 mg BID PO Last administered on 09/20/16 08:38 ; Start 09/12/16 at 21:00; Stop 09/20/16 at 10:41; Status DC Lorazepam (Ativan) 0.5 mg PRN BID PRN PO ANXIETY / AGITATION Last administered on 10/07/16 19:22; Start 09/12/16 at 19:45; Stop 10/07/16 at 20:59; Status DC Lorazepam (Ativan) 1 mg BID PO Last administered on 09/17/16 08:49; Start 02/19 at 21:00; Stop 09/17/16 at 18:05; Status DC Selegiline HCl (Emsam) 1 patch DAILY TD ; Start 09/13/16 at 09:00; Stop at 18:35; Status DC Buspirone HCl (Buspar) 7.5 mg BID PO Last administered on 09/27/16 09:12; Start 09/12/16 at 21:00; Stop 09/27/16 at 10:31; Status DC Amiodarone HCl (Cordarone) 100 mg DAILY PO Last administered on 10/16/16 08:36 ; Start 09/13/16 at 09:00 Aspirin (Children'S Aspirin) 81 mg DAILY PO Last administered on 10/16/16 08: 37; Start 09/13/16 at 09:00 Famotidine (Pepcid) 20 mg DAILY PO Last administered on 10/16/16 08:35; Start 09/13/16 at 09:00 Lisinopril (Prinivil) 5 mg DAILY PO Last administered on 10/16/16 08:37; Start 09/13/16 at 09:00 Loperamide HCl (Imodium) 2 mg PRN Q4HRS PRN PO DIARRHEA; Start 09/12/16 at 19: 45 Tamsulosin HCl (Flomax) 0.4 mg DAILY PO Last administered on 10/16/16 08:37; Start 09/13/16 at 09:00 Warfarin Sodium (Coumadin) 2.5 mg DAILY16 PO Last administered on 09/14/16 16: 05; Start 09/13/16 at 16:00; Stop 09/15/16 at 15:03; Status DC Multivitamins/ Calcium (Thera-M Plus) 1 tab DAILY PO Last administered on 08:36; Start 09/13/16 at 09:00 Warfarin Sodium (Coumadin) 2 mg DAILY16 PO Last administered on 09/14/16 16:06 ; Start 09/13/16 at 16:00; Stop 09/15/16 at 15:02; Status DC Warfarin Sodium (Coumadin Per Pharmacy) 1 each PRN DAILY PRN MC SEE COMMENTS Last administered on 10/16/16 12:45; Start 09/13/16 at 03:15 Vitamin D (Vitamin D3) 50,000 unit WEEKLY PO Last administered on 10/12/16 09: 45; Start 09/14/16 at 09:00 Selegiline HCl (Eldepryl) 5 mg DAILY PO Last administered on 10/07/16 09:39; Start 09/14/16 at 09:00; Stop 10/07/16 at 20:59; Status DC Trazodone HCl (Desyrel) 50 mg PRN QHS PRN PO INSOMNIA, MAY REPEAT X1 Last administered on 10/08/16 23:18; Start 09/14/16 at 19:15 Nystatin (Nystop) 1 wilfredo BID TP Last administered on 10/16/16 19:33; Start at 09:00 Nystatin (Nystop) 30 wilfredo STK-MED ONCE TP Last administered on 09/14/16 21:27; Start 09/14/16 at 21:27; Stop 09/14/16 at 21:28; Status DC Warfarin Sodium (Coumadin) 3 mg 1X WARF ONCE PO Last administered on 15:48; Start 09/15/16 at 16:00; Stop 09/15/16 at 16:01; Status DC Warfarin Sodium (Coumadin) 2.5 mg 1X ONCE PO Last administered on 09/15/16 15 :47; Start 09/15/16 at 15:15; Stop 09/15/16 at 15:17; Status DC Warfarin Sodium (Coumadin) 5 mg 1X WARF ONCE PO Last administered on 18:16; Start 09/16/16 at 16:00; Stop 09/16/16 at 16:01; Status DC Warfarin Sodium (Coumadin) 2 mg 1X WARF ONCE PO Last administered on 16:02; Start 09/17/16 at 16:00; Stop 09/17/16 at 16:01; Status DC Warfarin Sodium (Coumadin) 2.5 mg 1X WARF ONCE PO Last administered on 16:03; Start 09/17/16 at 16:00; Stop 09/17/16 at 16:01; Status DC Lorazepam (Ativan) 0.5 mg TID PO Last administered on 09/20/16 20:45; Start at 21:00; Stop 09/20/16 at 21:00; Status DC Lorazepam (Ativan) 0.5 mg BID PO Last administered on 09/24/16 19:38; Start at 09:00; Stop 09/24/16 at 21:01; Status DC Lorazepam (Ativan) 0.5 mg DAILY PO Last administered on 09/27/16 09:15; Start 09/25/16 at 09:00; Stop 09/27/16 at 10:39; Status DC Warfarin Sodium (Coumadin) 2.5 mg 1X WARF ONCE PO Last administered on 14:58; Start 09/18/16 at 16:00; Stop 09/18/16 at 16:01; Status DC Warfarin Sodium (Coumadin) 2 mg 1X WARF ONCE PO Last administered on 14:59; Start 09/18/16 at 16:00; Stop 09/18/16 at 16:01; Status DC Sertraline HCl (Zoloft) 25 mg DAILY PO Last administered on 09/24/16 07:43; Start 09/19/16 at 09:00; Stop 09/24/16 at 18:00; Status DC Warfarin Sodium (Coumadin - No Dose Today) 1 each 1X WARF ONCE MC Last administered on 09/19/16 14:14; Start 09/19/16 at 16:00; Stop 09/19/16 at 16:02 ; Status DC Quetiapine Fumarate (SEROquel) 25 mg QHS PO Last administered on 10/03/16 19: 12; Start 09/20/16 at 21:00; Stop 10/04/16 at 10:51; Status DC Warfarin Sodium (Coumadin) 2.5 mg 1X WARF ONCE PO Last administered on 16:31; Start 09/20/16 at 16:00; Stop 09/20/16 at 16:01; Status DC Valproic Acid (Depakene) 250 mg BID PO Last administered on 09/25/16 09:29; Start 09/20/16 at 21:00; Stop 09/25/16 at 18:06; Status DC Warfarin Sodium (Coumadin) 2.5 mg 1X WARF ONCE PO Last administered on 16:02; Start 09/21/16 at 16:00; Stop 09/21/16 at 16:01; Status DC Warfarin Sodium (Coumadin) 1 mg 1X WARF ONCE PO Last administered on 16:02; Start 09/21/16 at 16:00; Stop 09/21/16 at 16:01; Status DC Mirtazapine (Remeron) 7.5 mg QHS PO Last administered on 09/26/16 19:21; Start 09/21/16 at 21:00; Stop 09/27/16 at 10:31; Status DC Warfarin Sodium (Coumadin) 4 mg 1X WARF ONCE PO Last administered on 16:31; Start 09/22/16 at 16:00; Stop 09/22/16 at 16:01; Status DC Warfarin Sodium (Coumadin) 4 mg 1X WARF ONCE PO Last administered on 15:42; Start 09/23/16 at 16:00; Stop 09/23/16 at 16:01; Status DC Warfarin Sodium (Coumadin) 4 mg DAILY16 PO Last administered on 09/25/16 16:00 ; Start 09/24/16 at 16:00; Stop 09/26/16 at 08:25; Status DC Sertraline HCl (Zoloft) 50 mg DAILY PO Last administered on 10/03/16 08:52; Start 09/25/16 at 09:00; Stop 10/03/16 at 14:04; Status DC Valproic Acid (Depakene) 375 mg BID PO Last administered on 10/03/16 08:53; Start 09/25/16 at 21:00; Stop 10/03/16 at 18:33; Status DC Warfarin Sodium (Coumadin) 2 mg DAILY16 PO Last administered on 10/08/16 16:21 ; Start 09/26/16 at 16:00; Stop 10/08/16 at 16:53; Status DC Warfarin Sodium (Coumadin) 2.5 mg DAILY16 PO Last administered on 10/08/16 16: 21; Start 09/26/16 at 16:00; Stop 10/08/16 at 16:53; Status DC Quetiapine Fumarate (SEROquel) 12.5 mg BID92 PO Last administered on 09/30/16 13:36; Start 09/27/16 at 09:00; Stop 09/30/16 at 22:00; Status DC Buspirone HCl (Buspar) 10 mg TID PO Last administered on 10/16/16 19:34; Start 09/27/16 at 14:00 Mirtazapine (Remeron) 15 mg QHS PO Last administered on 10/16/16 19:34; Start 09/27/16 at 21:00 Lorazepam (Ativan) 0.5 mg DAILY PO Last administered on 10/16/16 08:38; Start 09/28/16 at 09:00 Quetiapine Fumarate (SEROquel) 12.5 mg 0900,1400,1700 PO Last administered on 08:52; Start 10/01/16 at 09:00; Stop 10/03/16 at 14:04; Status DC Olanzapine (ZyPREXA ZYDIS) 2.5 mg PRN Q2HR PRN PO PSYCHOSIS Last administered on 10/03/16 11:54; Start 10/03/16 at 10:00 Quetiapine Fumarate (SEROquel) 25 mg 0900,1400,1700 PO Last administered on 10/04 10:01; Start 10/03/16 at 17:00; Stop 10/04/16 at 10:51; Status DC Hydroxyzine HCl (Atarax) 50 mg PRN Q2HR PRN PO ANXIETY / AGITATION Last administered on 10/06/16 11:50; Start 10/03/16 at 14:15 Valproic Acid (Depakene) 500 mg BID PO Last administered on 10/16/16 19:34; Start 10/03/16 at 21:00 Risperidone (RisperDAL) 0.25 mg BID PO Last administered on 10/09/16 09:01; Start 10/04/16 at 21:00; Stop 10/09/16 at 18:21; Status DC Levothyroxine Sodium (Synthroid) 12.5 mcg DAILY06 PO Last administered on 05:01; Start 10/07/16 at 06:00 Lorazepam (Ativan) 0.25 mg PRN Q2HR PRN PO ANXIETY / AGITATION Last administered on 10/10/16 05:05; Start 10/07/16 at 21:15 Risperidone (RisperDAL) 0.375 mg DAILY PO Last administered on 10/16/16 08:37 ; Start 10/10/16 at 09:00 Risperidone (RisperDAL) 0.25 mg QHS PO Last administered on 10/16/16 19:34; Start 10/09/16 at 21:00 Warfarin Sodium (Coumadin - No Dose Today) 1 each 1X WARF ONCE MC Last administered on 10/10/16 14:23; Start 10/10/16 at 16:00; Stop 10/10/16 at 16:01; Status DC Haloperidol Lactate (Haldol) 5 mg DAILY IM Last administered on 10/12/16 08:42 ; Start 10/10/16 at 08:00; Stop 10/12/16 at 18:58; Status DC Lorazepam (Ativan) 0.5 mg DAILY IM Last administered on 10/12/16 08:43; Start 10/10/16 at 08:00; Stop 10/12/16 at 18:43; Status DC Warfarin Sodium (Coumadin) 4 mg DAILY16 PO Last administered on 10/14/16 16:00 ; Start 10/11/16 at 16:00; Stop 10/15/16 at 09:01; Status DC Fluvoxamine Maleate (Luvox) 25 mg HS PO Last administered on 10/14/16 19:23; Start 10/11/16 at 21:00; Stop 10/15/16 at 17:44; Status DC Haloperidol (Haldol) 2.5 mg DAILY PO Last administered on 10/15/16 08:47; Start 10/13/16 at 09:00; Stop 10/15/16 at 19:00; Status DC Warfarin Sodium (Coumadin) 2.5 mg 1X WARF ONCE PO Last administered on 16:22; Start 10/15/16 at 16:00; Stop 10/15/16 at 16:01; Status DC Warfarin Sodium (Coumadin) 2 mg 1X WARF ONCE PO Last administered on 16:22; Start 10/15/16 at 16:00; Stop 10/15/16 at 16:01; Status DC Fluvoxamine Maleate (Luvox) 50 mg HS PO Last administered on 10/16/16 19:34; Start 10/15/16 at 21:00 Warfarin Sodium (Coumadin) 4 mg 1X WARF ONCE PO Last administered on t 15:34; Start 10/16/16 at 16:00; Stop 10/16/16 at 16:01; Status DC Active Scripts Active Reported Therems-M (Multivits,Th W-Fe,Other Min) 1 Each Tablet 1 Each PO DAILY Tamsulosin Hcl 0.4 Mg Cap.er.24h 0.4 Mg PO DAILY Lisinopril 5 Mg Tablet 5 Mg PO DAILY Famotidine 20 Mg Tablet 20 Mg PO DAILY Emsam (Selegiline) 1 Each Patch.td24 1 Each TD DAILY Aspirin 81 Mg Tab.chew 81 Mg PO DAILY Amiodarone Hcl 200 Mg Tablet 100 Mg PO DAILY Depakote (Divalproex Sodium) 250 Mg Tablet.dr 250 Mg PO BID Coumadin (Warfarin Sodium) 4 Mg Tablet 4.5 Mg PO DAILY Ativan (Lorazepam) 0.5 Mg Tablet 0.5 Mg PO PRN BID PRN Imodium A-D (Loperamide HCl) 2 Mg Capsule 2 Mg PO PRN PRN MDD 12 mg Ativan (Lorazepam) 1 Mg Tablet 1 Mg PO BID Buspirone Hcl 7.5 Mg Tablet 7.5 Mg PO BID Diagnosis: Problems: (1) Dementia (2) Encounter for medical screening examination (3) Anxiety disorder (4) Impulse control disorder (5) Dementia, vascular, with depression (6) Dementia, vascular, with delusions (7) Dementia in Alzheimer's disease with depression (8) Dementia in Alzheimer's disease with delusions LINDSAY BROWN MD Oct 16, 2016 19:53
--- NOTE | 2016-10-16 22:51 | NUR ---
Behavior Intervention Response and Plan: BIRP Note: Behavior: Assumed Care of patient, patient located in Day Room at shift change. Patient exhibited the following behavior Calm, Disorganized, Cooperative. Brief assessment on rounds of vital signs, medication needs, lab studies, and pain. Treatment plan problems 1 and 2. Intervention: Patient assessed and the following interventions initiated safety checks 15 Minute Checks Cognitive Assessment , Head to toe Assessment , Medications. Response: After interactions and interventions patient responded in the following manner, Calm , Compliant ,Cooperative. Continue to assess behaviors and condition will continue to monitor throughout the shift as needed. Plan: Continue to monitor Master Treatment Plan for patient's progress toward short term goals of Decreased Agitation, Decreased Aggression, terminologist goals to return to previous living setting vs placement. Continue to assess patient for changes in above assessment. Monitor for medication needs, pain, and safety concerns. Hourly rounding performed to ensure safe environment.
--- NOTE | 2016-10-16 23:56 | PN ---
DATE: 10/15/2016 PSYCHIATRIC PROGRESS NOTE This is a late entry for 10/15/2016, covers elements not covered in my initial note. SUBJECTIVE: The patient was quite anxious in the morning looking for his , talking about wanting to be home, somewhat fixated on this, then better after that visited, but then he had forgotten her visit. No aggression noted. REVIEW OF SYSTEMS: No CV, , pulmonary, eye, ENT system symptoms on review. Reliability poor. MENTAL STATUS EXAM: Oriented to himself. Insight, judgment, recent and remote memory, attention, concentration, fund of knowledge poor, consistent with his diagnosis mentioned in my initial note. PLAN: Discontinue Haldol 2.5 mg p.o. daily. Maintain the rest of the psychotropics mentioned in my initial note. Adjust further as clinically indicated. MAN Phoenix BROWN MD DR: JEREL/tavo JOB#: [id number] / [id number]
[2016-10-17 05:33] VITALS: BP 137/94
[2016-10-17] MEDS: LEVOTHYROXINE 25 MCG TABLET. PO SCH (05:51)
[2016-10-17] MEDS: FAMOTIDINE 20 MG TABLET PO SCH (07:50)
[2016-10-17] MEDS: ASPIRIN 81 MG TAB.CHEW PO SCH (07:50)
[2016-10-17] MEDS: busPIRone 10 MG TABLET. PO SCH ×3 (07:50→19:38)
[2016-10-17] MEDS: MULTIVITAMIN with MINERAL TABLET. PO SCH (07:51)
[2016-10-17] MEDS: LORazepam 0.5 MG TABLET PO SCH (07:51)
[2016-10-17] MEDS: LISINOPRIL 5 MG TABLET. PO SCH (07:51)
[2016-10-17] MEDS: TAMSULOSIN 0.4 MG CAP.ER.24H. PO SCH (07:51)
[2016-10-17] MEDS: risperiDONE 0.25 MG TABLET. PO SCH ×2 (07:52→19:38)
[2016-10-17] MEDS: AMIODARONE HCL 200 MG TABLET PO SCH (07:52)
[2016-10-17] MEDS: NYSTATIN TOPICAL POWDER 30GM BOTTLE. TP SCH ×2 (07:53→19:39)
[2016-10-17] MEDS: VALPROATE ACID 250 MG/5 ML ORAL SOLUTION PO SCH ×2 (07:53→19:38)
--- NOTE | 2016-10-17 11:15 | NUR ---
THERAPEUTIC RECREATION GROUP NOTE TITLE :Match the Flag ACTIVITY : Cognitive Stimulation GOAL : Maintain or improve cognitive functioning and memory. DURATION : 45 Minutes RESPONSE : Full participation. Pt. was pleasant and alert the entire time. He smiled often and made jokes. He actively solved clues to identify the country the flag belonged to. He was able to match the flag with no prompting. He was a pleasure to have in group.
--- NOTE | 2016-10-17 12:49 | NUR ---
Pharmacy Warfarin Dosing Note S:Pharmacy consulted to assist with anticoagulation therapy started 09/13/16 with target INR: 2 -3 O:ABBEY MATHIS is a 76 year old M with a history of stroke LABS: Last INR: 2.4 Last HGB: 11.6 Last HCT: 34.9 Last PLT: 143 Last dose of 4 mg given on 10/16/16 at 1600 Previous Regimen: 4.5MG DAILY HOME DOSE. Vitamin K given: N Drug Interaction Changes: Same Interacting Drug Ongoing Drug Interactions: AMIODARONE, FLUVOXAMINE A:INR is within desired range. We will continue to alternate 4.5mg with 4mg daily. P: Warfarin dose: Coumadin 4.5mg po today at 1600 Bridge Therapy: None Next INR due 10/18/16 Pharmacy anticoagulation service will continue to follow. CHAYO [facility]ED[facility] 10/17/16 1249 Signed: 10/17/16 at 1252 by CHAYO TORRES
--- NOTE | 2016-10-17 13:24 | NUR ---
Behavior Intervention Response and Plan: BIRP Note: Behavior: Assumed Care of patient, patient located in Patient Room at shift change. Patient exhibited the following behavior Disorganized, Able to Focus on Task, Wandering. Brief assessment on rounds of vital signs, medication needs, lab studies, and pain. Treatment plan problems . Intervention: Patient assessed and the following interventions initiated safety checks 15 Minute Checks Head to toe Assessment , Medications , Oral Hydration. Response: After interactions and interventions patient responded in the following manner, Cooperative , Interactive ,Cooperative. Continue to assess behaviors and condition will continue to monitor throughout the shift as needed. Plan: Continue to monitor Master Treatment Plan for patient's progress toward short term goals of No harm To self/ others, Medication Compliance, play therapist goals to return to previous living setting vs placement. Continue to assess patient for changes in above assessment. Monitor for medication needs, pain, and safety concerns. Hourly rounding performed to ensure safe environment.
--- NOTE | 2016-10-17 14:00 | NUR ---
Faith from [facility] contacted this SW regarding acceptance into facility. Faith stated Pt's was hesitant during the tour yesterday as she stated she would like for PT. to return to [facility] first and see if he can be successful. Faith asked this SW to convey to PT's they would not be able to hold the current bed opening. PAULINE spoke w/Pt's during noon visiting hours and stated she would prefer for PT. to return to [facility]. PAULINE shared the information from Faith at [facility]. PAULINE told Pt's SW would follow up w/José Manuel this afternoon. PAULINE faxed updated clinical notes to [place] and will wait for a call back regarding reacceptance.
[2016-10-17] MEDS ORDERED: WARFARIN 2.5 MG TABLET. PO ONE (16:00)
[2016-10-17] MEDS ORDERED: WARFARIN 2 MG TABLET. PO ONE (16:00)
[2016-10-17 16:12] VITALS: BP 122/75
[2016-10-17] MEDS: MIRTAZAPINE 15 MG TABLET PO SCH (19:38)
--- NOTE | 2016-10-17 20:27 | PDOC ---
Exam Blake Demential Exam: Blake Note: Please also refer to the separate dictated note~for this date of service dictated separately.~Patient seen individually. Discussed the patient with Nursing staff reviewed the chart.~Reviewed interim history and current functioning. Reviewed vital signs,~Labs/ Radiology~and current medications noted below. Continue current treatment with the changes noted in the dictated addendum note Assessment: Vital Signs: Vital Signs Date Time Temp Pulse Resp B/P (MAP) Pulse Ox O2 Delivery O2 Flow Rate FiO2 10/17/16 16:12 97.5 73 16 122/75 (91) 91 10/16/16 06:10 Room Air I&O Intake and Output 10/17/16 07:00 Intake Total 1080 ml Balance 1080 ml Intake Oral 1080 ml Labs: Laboratory Tests Test 10/17/16 06:16 Prothrombin Time 24.2 SEC (9.4-11.4) H Prothrombin Time INR 2.4 (0.9-1.1) H Current Medications: Meds: Current Medications Acetaminophen (Tylenol) 650 mg PRN Q6HRS PRN PO PAIN / TEMP Last administered on 09/15/16 20:02; Start 09/12/16 at 19:15 Multi-Ingredient Ointment (Analgesic Joiner) 1 wilfredo PRN QID PRN TP MUSCLE PAIN; Start 09/12/16 at 19:15 Al Hydroxide/Mg Hydroxide (Mylanta Plus Xs) 15 ml PRN AFTMEALHC PRN PO DYSPEPSIA; Start 09/12/16 at 19:15 Magnesium Hydroxide (Milk Of Magnesia) 2,400 mg PRN QHS PRN PO CONSTIPATION; Start 09/12/16 at 19:15 Divalproex Sodium (Depakote) 250 mg BID PO Last administered on 09/20/16 08:38 ; Start 09/12/16 at 21:00; Stop 09/20/16 at 10:41; Status DC Lorazepam (Ativan) 0.5 mg PRN BID PRN PO ANXIETY / AGITATION Last administered on 10/07/16 19:22; Start 09/12/16 at 19:45; Stop 10/07/16 at 20:59; Status DC Lorazepam (Ativan) 1 mg BID PO Last administered on 09/17/16 08:49; Start 02/19 at 21:00; Stop 09/17/16 at 18:05; Status DC Selegiline HCl (Emsam) 1 patch DAILY TD ; Start 09/13/16 at 09:00; Stop at 18:35; Status DC Buspirone HCl (Buspar) 7.5 mg BID PO Last administered on 09/27/16 09:12; Start 09/12/16 at 21:00; Stop 09/27/16 at 10:31; Status DC Amiodarone HCl (Cordarone) 100 mg DAILY PO Last administered on 10/17/16 07:52 ; Start 09/13/16 at 09:00 Aspirin (Children'S Aspirin) 81 mg DAILY PO Last administered on 10/17/16 07: 50; Start 09/13/16 at 09:00 Famotidine (Pepcid) 20 mg DAILY PO Last administered on 10/17/16 07:50; Start 09/13/16 at 09:00 Lisinopril (Prinivil) 5 mg DAILY PO Last administered on 10/17/16 07:51; Start 09/13/16 at 09:00 Loperamide HCl (Imodium) 2 mg PRN Q4HRS PRN PO DIARRHEA; Start 09/12/16 at 19: 45 Tamsulosin HCl (Flomax) 0.4 mg DAILY PO Last administered on 10/17/16 07:51; Start 09/13/16 at 09:00 Warfarin Sodium (Coumadin) 2.5 mg DAILY16 PO Last administered on 09/14/16 16: 05; Start 09/13/16 at 16:00; Stop 09/15/16 at 15:03; Status DC Multivitamins/ Calcium (Thera-M Plus) 1 tab DAILY PO Last administered on 07:51; Start 09/13/16 at 09:00 Warfarin Sodium (Coumadin) 2 mg DAILY16 PO Last administered on 09/14/16 16:06 ; Start 09/13/16 at 16:00; Stop 09/15/16 at 15:02; Status DC Warfarin Sodium (Coumadin Per Pharmacy) 1 each PRN DAILY PRN MC SEE COMMENTS Last administered on 10/17/16 12:49; Start 09/13/16 at 03:15 Vitamin D (Vitamin D3) 50,000 unit WEEKLY PO Last administered on 10/12/16 09: 45; Start 09/14/16 at 09:00 Selegiline HCl (Eldepryl) 5 mg DAILY PO Last administered on 10/07/16 09:39; Start 09/14/16 at 09:00; Stop 10/07/16 at 20:59; Status DC Trazodone HCl (Desyrel) 50 mg PRN QHS PRN PO INSOMNIA, MAY REPEAT X1 Last administered on 10/08/16 23:18; Start 09/14/16 at 19:15 Nystatin (Nystop) 1 wilfredo BID TP Last administered on 10/17/16 19:39; Start at 09:00 Nystatin (Nystop) 30 wilfredo STK-MED ONCE TP Last administered on 09/14/16 21:27; Start 09/14/16 at 21:27; Stop 09/14/16 at 21:28; Status DC Warfarin Sodium (Coumadin) 3 mg 1X WARF ONCE PO Last administered on 15:48; Start 09/15/16 at 16:00; Stop 09/15/16 at 16:01; Status DC Warfarin Sodium (Coumadin) 2.5 mg 1X ONCE PO Last administered on 09/15/16 15 :47; Start 09/15/16 at 15:15; Stop 09/15/16 at 15:17; Status DC Warfarin Sodium (Coumadin) 5 mg 1X WARF ONCE PO Last administered on 18:16; Start 09/16/16 at 16:00; Stop 09/16/16 at 16:01; Status DC Warfarin Sodium (Coumadin) 2 mg 1X WARF ONCE PO Last administered on 16:02; Start 09/17/16 at 16:00; Stop 09/17/16 at 16:01; Status DC Warfarin Sodium (Coumadin) 2.5 mg 1X WARF ONCE PO Last administered on 16:03; Start 09/17/16 at 16:00; Stop 09/17/16 at 16:01; Status DC Lorazepam (Ativan) 0.5 mg TID PO Last administered on 09/20/16 20:45; Start at 21:00; Stop 09/20/16 at 21:00; Status DC Lorazepam (Ativan) 0.5 mg BID PO Last administered on 09/24/16 19:38; Start at 09:00; Stop 09/24/16 at 21:01; Status DC Lorazepam (Ativan) 0.5 mg DAILY PO Last administered on 09/27/16 09:15; Start 09/25/16 at 09:00; Stop 09/27/16 at 10:39; Status DC Warfarin Sodium (Coumadin) 2.5 mg 1X WARF ONCE PO Last administered on 14:58; Start 09/18/16 at 16:00; Stop 09/18/16 at 16:01; Status DC Warfarin Sodium (Coumadin) 2 mg 1X WARF ONCE PO Last administered on 14:59; Start 09/18/16 at 16:00; Stop 09/18/16 at 16:01; Status DC Sertraline HCl (Zoloft) 25 mg DAILY PO Last administered on 09/24/16 07:43; Start 09/19/16 at 09:00; Stop 09/24/16 at 18:00; Status DC Warfarin Sodium (Coumadin - No Dose Today) 1 each 1X WARF ONCE MC Last administered on 09/19/16 14:14; Start 09/19/16 at 16:00; Stop 09/19/16 at 16:02 ; Status DC Quetiapine Fumarate (SEROquel) 25 mg QHS PO Last administered on 10/03/16 19: 12; Start 09/20/16 at 21:00; Stop 10/04/16 at 10:51; Status DC Warfarin Sodium (Coumadin) 2.5 mg 1X WARF ONCE PO Last administered on 16:31; Start 09/20/16 at 16:00; Stop 09/20/16 at 16:01; Status DC Valproic Acid (Depakene) 250 mg BID PO Last administered on 09/25/16 09:29; Start 09/20/16 at 21:00; Stop 09/25/16 at 18:06; Status DC Warfarin Sodium (Coumadin) 2.5 mg 1X WARF ONCE PO Last administered on 16:02; Start 09/21/16 at 16:00; Stop 09/21/16 at 16:01; Status DC Warfarin Sodium (Coumadin) 1 mg 1X WARF ONCE PO Last administered on 16:02; Start 09/21/16 at 16:00; Stop 09/21/16 at 16:01; Status DC Mirtazapine (Remeron) 7.5 mg QHS PO Last administered on 09/26/16 19:21; Start 09/21/16 at 21:00; Stop 09/27/16 at 10:31; Status DC Warfarin Sodium (Coumadin) 4 mg 1X WARF ONCE PO Last administered on 16:31; Start 09/22/16 at 16:00; Stop 09/22/16 at 16:01; Status DC Warfarin Sodium (Coumadin) 4 mg 1X WARF ONCE PO Last administered on 15:42; Start 09/23/16 at 16:00; Stop 09/23/16 at 16:01; Status DC Warfarin Sodium (Coumadin) 4 mg DAILY16 PO Last administered on 09/25/16 16:00 ; Start 09/24/16 at 16:00; Stop 09/26/16 at 08:25; Status DC Sertraline HCl (Zoloft) 50 mg DAILY PO Last administered on 10/03/16 08:52; Start 09/25/16 at 09:00; Stop 10/03/16 at 14:04; Status DC Valproic Acid (Depakene) 375 mg BID PO Last administered on 10/03/16 08:53; Start 09/25/16 at 21:00; Stop 10/03/16 at 18:33; Status DC Warfarin Sodium (Coumadin) 2 mg DAILY16 PO Last administered on 10/08/16 16:21 ; Start 09/26/16 at 16:00; Stop 10/08/16 at 16:53; Status DC Warfarin Sodium (Coumadin) 2.5 mg DAILY16 PO Last administered on 10/08/16 16: 21; Start 09/26/16 at 16:00; Stop 10/08/16 at 16:53; Status DC Quetiapine Fumarate (SEROquel) 12.5 mg BID92 PO Last administered on 09/30/16 13:36; Start 09/27/16 at 09:00; Stop 09/30/16 at 22:00; Status DC Buspirone HCl (Buspar) 10 mg TID PO Last administered on 10/17/16 19:38; Start 09/27/16 at 14:00 Mirtazapine (Remeron) 15 mg QHS PO Last administered on 10/17/16 19:38; Start 09/27/16 at 21:00 Lorazepam (Ativan) 0.5 mg DAILY PO Last administered on 10/17/16 07:51; Start 09/28/16 at 09:00; Stop 10/17/16 at 17:00; Status DC Quetiapine Fumarate (SEROquel) 12.5 mg 0900,1400,1700 PO Last administered on 08:52; Start 10/01/16 at 09:00; Stop 10/03/16 at 14:04; Status DC Olanzapine (ZyPREXA ZYDIS) 2.5 mg PRN Q2HR PRN PO PSYCHOSIS Last administered on 10/03/16 11:54; Start 10/03/16 at 10:00 Quetiapine Fumarate (SEROquel) 25 mg 0900,1400,1700 PO Last administered on 10/04 10:01; Start 10/03/16 at 17:00; Stop 10/04/16 at 10:51; Status DC Hydroxyzine HCl (Atarax) 50 mg PRN Q2HR PRN PO ANXIETY / AGITATION Last administered on 10/06/16 11:50; Start 10/03/16 at 14:15 Valproic Acid (Depakene) 500 mg BID PO Last administered on 10/17/16 19:38; Start 10/03/16 at 21:00 Risperidone (RisperDAL) 0.25 mg BID PO Last administered on 10/09/16 09:01; Start 10/04/16 at 21:00; Stop 10/09/16 at 18:21; Status DC Levothyroxine Sodium (Synthroid) 12.5 mcg DAILY06 PO Last administered on 05:51; Start 10/07/16 at 06:00 Lorazepam (Ativan) 0.25 mg PRN Q2HR PRN PO ANXIETY / AGITATION Last administered on 10/10/16 05:05; Start 10/07/16 at 21:15 Risperidone (RisperDAL) 0.375 mg DAILY PO Last administered on 10/17/16 07:52 ; Start 10/10/16 at 09:00 Risperidone (RisperDAL) 0.25 mg QHS PO Last administered on 10/17/16 19:38; Start 10/09/16 at 21:00 Warfarin Sodium (Coumadin - No Dose Today) 1 each 1X WARF ONCE MC Last administered on 10/10/16 14:23; Start 10/10/16 at 16:00; Stop 10/10/16 at 16:01; Status DC Haloperidol Lactate (Haldol) 5 mg DAILY IM Last administered on 10/12/16 08:42 ; Start 10/10/16 at 08:00; Stop 10/12/16 at 18:58; Status DC Lorazepam (Ativan) 0.5 mg DAILY IM Last administered on 10/12/16 08:43; Start 10/10/16 at 08:00; Stop 10/12/16 at 18:43; Status DC Warfarin Sodium (Coumadin) 4 mg DAILY16 PO Last administered on 10/14/16 16:00 ; Start 10/11/16 at 16:00; Stop 10/15/16 at 09:01; Status DC Fluvoxamine Maleate (Luvox) 25 mg HS PO Last administered on 10/14/16 19:23; Start 10/11/16 at 21:00; Stop 10/15/16 at 17:44; Status DC Haloperidol (Haldol) 2.5 mg DAILY PO Last administered on 10/15/16 08:47; Start 10/13/16 at 09:00; Stop 10/15/16 at 19:00; Status DC Warfarin Sodium (Coumadin) 2.5 mg 1X WARF ONCE PO Last administered on 16:22; Start 10/15/16 at 16:00; Stop 10/15/16 at 16:01; Status DC Warfarin Sodium (Coumadin) 2 mg 1X WARF ONCE PO Last administered on 16:22; Start 10/15/16 at 16:00; Stop 10/15/16 at 16:01; Status DC Fluvoxamine Maleate (Luvox) 50 mg HS PO Last administered on 10/17/16 19:39; Start 10/15/16 at 21:00 Warfarin Sodium (Coumadin) 4 mg 1X WARF ONCE PO Last administered on 15:34; Start 10/16/16 at 16:00; Stop 10/16/16 at 16:01; Status DC Warfarin Sodium (Coumadin) 2.5 mg 1X WARF ONCE PO Last administered on 14:42; Start 10/17/16 at 16:00; Stop 10/17/16 at 16:01; Status DC Warfarin Sodium (Coumadin) 2 mg 1X WARF ONCE PO Last administered on 14:42; Start 10/17/16 at 16:00; Stop 10/17/16 at 16:01; Status DC Active Scripts Active Reported Therems-M (Multivits, W-Fe,Other Min) 1 Each Tablet 1 Each PO DAILY Tamsulosin Hcl 0.4 Mg Cap.er.24h 0.4 Mg PO DAILY Lisinopril 5 Mg Tablet 5 Mg PO DAILY Famotidine 20 Mg Tablet 20 Mg PO DAILY Emsam (Selegiline) 1 Each Patch.td24 1 Each TD DAILY Aspirin 81 Mg Tab.chew 81 Mg PO DAILY Amiodarone Hcl 200 Mg Tablet 100 Mg PO DAILY Depakote (Divalproex Sodium) 250 Mg Tablet.dr 250 Mg PO BID Coumadin (Warfarin Sodium) 4 Mg Tablet 4.5 Mg PO DAILY Ativan (Lorazepam) 0.5 Mg Tablet 0.5 Mg PO PRN BID PRN Imodium A-D (Loperamide HCl) 2 Mg Capsule 2 Mg PO PRN PRN MDD 12 mg Ativan (Lorazepam) 1 Mg Tablet 1 Mg PO BID Buspirone Hcl 7.5 Mg Tablet 7.5 Mg PO BID Diagnosis: Problems: (1) Dementia (2) Encounter for medical screening examination (3) Anxiety disorder (4) Impulse control disorder (5) Dementia, vascular, with depression (6) Dementia, vascular, with delusions (7) Dementia in Alzheimer's disease with depression (8) Dementia in Alzheimer's disease with delusions LINDSAY BROWN MD Oct 17, 2016 20:27
--- NOTE | 2016-10-17 20:31 | PN ---
DATE: 10/16/2016 PSYCHIATRIC PROGRESS NOTE This is a late entry of 10/16/2016, covers elements not covered in my initial note. SUBJECTIVE: The patient remains confused. His had ____ but he did not remember that when I met with them at suppertime. Overall, behaviorally is better, less psychotic. REVIEW OF SYSTEMS: No CV, , eye, ENT, or pulmonary system symptoms on review. Reliability poor. MENTAL STATUS EXAM: Oriented to himself. Insight, judgment, recent and remote memory, attention, concentration, fund of knowledge poor, consistent with his diagnosis mentioned in my initial note. PLAN: Continue current psychotropics. Oral Haldol has been discontinued. Luvox was increased to 50 mg a day, may need to increase further. Continue BuSpar, Ativan, Depakene. We will stop the scheduled Ativan 0.5 mg daily, continue p.r.n. Maintain Risperdal, Atarax, Remeron as before. MAN Phoenix BROWN MD DR: JEREL/tavo JOB#: [id number] / [id number]
--- NOTE | 2016-10-17 22:13 | NUR ---
Behavior Intervention Response and Plan: BIRP Note: Behavior: Assumed Care of patient, patient located in Day Room at shift change. Patient exhibited the following behavior Calm, Compliant, Cooperative. Brief assessment on rounds of vital signs, medication needs, lab studies, and pain. Treatment plan problems Danger to Others and Fall Risk. Intervention: Patient assessed and the following interventions initiated safety checks 15 Minute Checks Cognitive Assessment , Head to toe Assessment , Medications. Response: After interactions and interventions patient responded in the following manner, Wandering , Calm ,Compliant. Continue to assess behaviors and condition will continue to monitor throughout the shift as needed. Plan: Continue to monitor Master Treatment Plan for patient's progress toward short term goals of Decreased Agitation, Decreased Aggression, superintendent container terminal goals to return to previous living setting vs placement. Continue to assess patient for changes in above assessment. Monitor for medication needs, pain, and safety concerns. Hourly rounding performed to ensure safe environment.
--- NOTE | 2016-10-18 01:32 | PN ---
DATE: 10/17/2016 PSYCHIATRIC PROGRESS NOTE This note covers elements not covered in my initial note. SUBJECTIVE: The patient remains confused. He was upset this evening, exit seeking, confused. His visited twice, but he did not remember it as I questioned him on it this evening. REVIEW OF SYSTEMS: No CV, , pulmonary, eye, ENT system symptoms on review. He is pleasant, smiling, quite an improvement. MENTAL STATUS EXAM: Insight, judgment, recent and remote memory, attention, concentration, fund of knowledge poor, consistent with his diagnosis mentioned in my initial note. PLAN: No change in his psychotropics for now. May transition to a lower level of care as social service staff are able to arrange. MAN Phoenix BROWN MD DR: JEREL/tavo JOB#: [id number] / [id number]
[2016-10-18] MEDS: LEVOTHYROXINE 25 MCG TABLET. PO SCH (05:16)
[2016-10-18 06:00] VITALS: BP 133/93
--- NOTE | 2016-10-18 08:19 | NUR ---
Pharmacy Warfarin Dosing Note S:Pharmacy consulted to assist with anticoagulation therapy started 09/13/16 with target INR: 2 -3 O:ABBEY MATHIS is a 76 year old M with history of stroke. LABS: Last INR: 2.1 Last HGB: 11.6 Last HCT: 34.9 Last PLT: 143 Last dose of 4.5 given on 10/17/16 at 1600 Drug Interaction Changes: Same Interacting Drug Ongoing Drug Interactions: AMIODARONE, FLUVOXAMINE A:INR is within desired range. We will continue to alternate 4mg with 4.5mg daily P: Warfarin dose: Coumadin 4mg po today at 1600 Bridge Therapy: None Next INR due 10/23/16 Pharmacy anticoagulation service will continue to follow. CHAYO ACEVEDO [facility] 10/18/16 0819 Signed: 10/18/16 at 0821 by CHAYO ACEVEDO [facility]
[2016-10-18] MEDS: risperiDONE 0.25 MG TABLET. PO SCH ×2 (08:20→19:28)
[2016-10-18] MEDS: LISINOPRIL 5 MG TABLET. PO SCH (08:21)
[2016-10-18] MEDS: MULTIVITAMIN with MINERAL TABLET. PO SCH (08:21)
[2016-10-18] MEDS: FAMOTIDINE 20 MG TABLET PO SCH (08:21)
[2016-10-18] MEDS: VALPROATE ACID 250 MG/5 ML ORAL SOLUTION PO SCH ×2 (08:21→19:26)
[2016-10-18] MEDS: busPIRone 10 MG TABLET. PO SCH ×3 (08:22→19:27)
[2016-10-18] MEDS: ASPIRIN 81 MG TAB.CHEW PO SCH (08:22)
[2016-10-18] MEDS: AMIODARONE HCL 200 MG TABLET PO SCH (08:22)
[2016-10-18] MEDS: NYSTATIN TOPICAL POWDER 30GM BOTTLE. TP SCH ×2 (08:26→19:29)
[2016-10-18] MEDS: TAMSULOSIN 0.4 MG CAP.ER.24H. PO SCH (08:26)
--- NOTE | 2016-10-18 11:00 | NUR ---
THERAPEUTIC RECREATION GROUP NOTE TITLE :Instrument Play Along ACTIVITY : Music GOAL : Increase socialization and self expression, elevate mood, stimulate memory DURATION : 60 minutes RESPONSE : Full participation. Pt. was alert and engaged the entire time. He needed encouragement to play with instruments. He was slow to comply but had a smile on his face most of the time. He sang along to several songs.
[2016-10-18 11:06] LABS: BASO % 1 % (0-3); EOS # 0.2 x10^3/uL (0.0-0.7); EOS % 3 % (0-3); HEMATOCRIT 37.1 % (39.0-53.0); HEMOGLOBIN 12.2 g/dL (13.0-17.5); LYMPH # 1.4 x10^3/uL (1.0-4.8); LYMPH % 21 % (24-48); MEAN CORPUSCULAR HEMOGLOBIN 29 pg (25-35); MEAN CORPUSCULAR HGB CONC 33 g/dL (31-37); MEAN CORPUSCULAR VOLUME 88 fL (79-100); MONO # 0.7 x10^3/uL (0.0-1.1); MONO % 12 % (0-9); NEUT % 63 % (31-73); PLATELET COUNT 158 x10^3/uL (140-400); RED BLOOD COUNT 4.23 x10^6/uL (4.30-5.70); RED CELL DISTRIBUTION WIDTH 14.9 % (11.5-14.5); WHITE BLOOD COUNT 6.3 x10^3/uL (4.0-11.0)
[2016-10-18 11:17] LABS: ALBUMIN 3.4 g/dL (3.4-5.0); ALBUMIN/GLOBULIN RATIO 0.9 (1.0-1.7); CALCIUM 8.7 mg/dL (8.5-10.1); CREATININE 1.2 mg/dL (0.7-1.3); GFR 59.2; TOTAL BILIRUBIN 0.7 mg/dL (0.2-1.0); TOTAL PROTEIN 7.1 g/dL (6.4-8.2)
--- NOTE | 2016-10-18 12:50 | NUR ---
Behavior Intervention Response and Plan: BIRP Note: Behavior: Assumed Care of patient, patient located in Patient Room at shift change. Patient exhibited the following behavior Wandering, Exit Seeking, Disorganized. Brief assessment on rounds of vital signs, medication needs, lab studies, and pain. Treatment plan problems . Intervention: Patient assessed and the following interventions initiated safety checks 15 Minute Checks Head to toe Assessment , Medications , Nutrition. Response: After interactions and interventions patient responded in the following manner, Social , Delusions ,Calm. Continue to assess behaviors and condition will continue to monitor throughout the shift as needed. Plan: Continue to monitor Master Treatment Plan for patient's progress toward short term goals of Decreased Agitation, No harm To self/ others, residential goals to return to previous living setting vs placement. Continue to assess patient for changes in above assessment. Monitor for medication needs, pain, and safety concerns. Hourly rounding performed to ensure safe environment.
--- NOTE | 2016-10-18 13:50 | NUR ---
PAULINE spoke w/ Lucille at [facility] to verify facility would be accepting Pt. back [place]. Transportation arranged by José Manuel w/[facility] for 11:00 on Saturday. PAULINE confirmed dc plans w/Pt's during noon visiting hours today.
--- NOTE | 2016-10-18 14:15 | NUR ---
THERAPEUTIC RECREATION GROUP NOTE TITLE :Movie ACTIVITY : Activities and Games GOAL : Increase alertness/focus, decrease stress DURATION : 105 Minutes RESPONSE : Moderate participation. Pt. sat quietly with the group the entire time. He was calm and followed the movie about half of the time.
[2016-10-18] MEDS: WARFARIN 4 MG TABLET. PO SCH (14:51)
[2016-10-18] MEDS ORDERED: WARFARIN 4 MG TABLET. PO ONE (16:00)
[2016-10-18 16:04] VITALS: BP 99/73
[2016-10-18] MEDS: MIRTAZAPINE 15 MG TABLET PO SCH (19:27)
[2016-10-18] MEDS ORDERED: WARF4TAB68 PO (19:32)
--- NOTE | 2016-10-18 20:09 | PDOC ---
Exam Blake Demential Exam: Blake Note: Please also refer to the separate dictated note~for this date of service dictated separately.~Patient seen individually. Discussed the patient with Nursing staff reviewed the chart.~Reviewed interim history and current functioning. Reviewed vital signs,~Labs/ Radiology~and current medications noted below. Continue current treatment with the changes noted in the dictated addendum note Assessment: Vital Signs: Vital Signs Date Time Temp Pulse Resp B/P (MAP) Pulse Ox O2 Delivery O2 Flow Rate FiO2 10/18/16 16:04 98.5 78 18 99/73 (82) 96 Room Air I&O Intake and Output 10/18/16 07:00 Intake Total 1200 ml Balance 1200 ml Intake Oral 1200 ml Labs: Laboratory Tests Test 10/18/16 06:29 White Blood Count 6.3 x10^3/uL (4.0-11.0) Red Blood Count 4.23 x10^6/uL (4.30-5.70) L Hemoglobin 12.2 g/dL (13.0-17.5) L Hematocrit 37.1 % (39.0-53.0) L Mean Corpuscular Volume 88 fL (79-100) Mean Corpuscular Hemoglobin 29 pg (25-35) Mean Corpuscular Hemoglobin Concent 33 g/dL (31-37) Red Cell Distribution Width 14.9 % (11.5-14.5) H Platelet Count 158 x10^3/uL (140-400) Neutrophils (%) (Auto) 63 % (31-73) Lymphocytes (%) (Auto) 21 % (24-48) L Monocytes (%) (Auto) 12 % (0-9) H Eosinophils (%) (Auto) 3 % (0-3) Basophils (%) (Auto) 1 % (0-3) Neutrophils # (Auto) 4.0 x10^3uL (1.8-7.7) Lymphocytes # (Auto) 1.4 x10^3/uL (1.0-4.8) Monocytes # (Auto) 0.7 x10^3/uL (0.0-1.1) Eosinophils # (Auto) 0.2 x10^3/uL (0.0-0.7) Basophils # (Auto) 0.0 x10^3/uL (0.0-0.2) Prothrombin Time 22.0 SEC (9.4-11.4) H Prothrombin Time INR 2.1 (0.9-1.1) H Sodium Level 141 mmol/L (136-145) Potassium Level 4.0 mmol/L (3.5-5.1) Chloride Level 105 mmol/L (98-107) Carbon Dioxide Level 28 mmol/L (21-32) Anion Gap 8 (6-14) Blood Urea Nitrogen 28 mg/dL (8-26) H Creatinine 1.2 mg/dL (0.7-1.3) Estimated GFR (Cockcroft-Gault) 59.2 BUN/Creatinine Ratio 23 (6-20) H Glucose Level 84 mg/dL (70-99) Calcium Level 8.7 mg/dL (8.5-10.1) Total Bilirubin 0.7 mg/dL (0.2-1.0) Aspartate Amino Transferase (AST) 28 U/L (15-37) Alanine Aminotransferase (ALT) 22 U/L (16-63) Alkaline Phosphatase 53 U/L (46-116) Total Protein 7.1 g/dL (6.4-8.2) Albumin 3.4 g/dL (3.4-5.0) Albumin/Globulin Ratio 0.9 (1.0-1.7) L Current Medications: Meds: Current Medications Acetaminophen (Tylenol) 650 mg PRN Q6HRS PRN PO PAIN / TEMP Last administered on 09/15/16 20:02; Start 09/12/16 at 19:15 Multi-Ingredient Ointment (Analgesic [place]) 1 wilfredo PRN QID PRN TP MUSCLE PAIN; Start 09/12/16 at 19:15 Al Hydroxide/Mg Hydroxide (Mylanta Plus Xs) 15 ml PRN AFTMEALHC PRN PO DYSPEPSIA; Start 09/12/16 at 19:15 Magnesium Hydroxide (Milk Of Magnesia) 2,400 mg PRN QHS PRN PO CONSTIPATION; Start 09/12/16 at 19:15 Divalproex Sodium (Depakote) 250 mg BID PO Last administered on 09/20/16 08:38 ; Start 09/12/16 at 21:00; Stop 09/20/16 at 10:41; Status DC Lorazepam (Ativan) 0.5 mg PRN BID PRN PO ANXIETY / AGITATION Last administered on 10/07/16 19:22; Start 09/12/16 at 19:45; Stop 10/07/16 at 20:59; Status DC Lorazepam (Ativan) 1 mg BID PO Last administered on 09/17/16 08:49; Start 02/19 at 21:00; Stop 09/17/16 at 18:05; Status DC Selegiline HCl (Emsam) 1 patch DAILY TD ; Start 09/13/16 at 09:00; Stop at 18:35; Status DC Buspirone HCl (Buspar) 7.5 mg BID PO Last administered on 09/27/16 09:12; Start 09/12/16 at 21:00; Stop 09/27/16 at 10:31; Status DC Amiodarone HCl (Cordarone) 100 mg DAILY PO Last administered on 10/18/16 08:22 ; Start 09/13/16 at 09:00 Aspirin (Children'S Aspirin) 81 mg DAILY PO Last administered on 10/18/16 08: 22; Start 09/13/16 at 09:00 Famotidine (Pepcid) 20 mg DAILY PO Last administered on 10/18/16 08:21; Start 09/13/16 at 09:00 Lisinopril (Prinivil) 5 mg DAILY PO Last administered on 10/18/16 08:21; Start 09/13/16 at 09:00 Loperamide HCl (Imodium) 2 mg PRN Q4HRS PRN PO DIARRHEA; Start 09/12/16 at 19: 45 Tamsulosin HCl (Flomax) 0.4 mg DAILY PO Last administered on 10/18/16 08:26; Start 09/13/16 at 09:00 Warfarin Sodium (Coumadin) 2.5 mg DAILY16 PO Last administered on 09/14/16 16: 05; Start 09/13/16 at 16:00; Stop 09/15/16 at 15:03; Status DC Multivitamins/ Calcium (Thera-M Plus) 1 tab DAILY PO Last administered on 08:21; Start 09/13/16 at 09:00 Warfarin Sodium (Coumadin) 2 mg DAILY16 PO Last administered on 09/14/16 16:06 ; Start 09/13/16 at 16:00; Stop 09/15/16 at 15:02; Status DC Warfarin Sodium (Coumadin Per Pharmacy) 1 each PRN DAILY PRN MC SEE COMMENTS Last administered on 10/18/16 08:19; Start 09/13/16 at 03:15 Vitamin D (Vitamin D3) 50,000 unit WEEKLY PO Last administered on 10/12/16 09: 45; Start 09/14/16 at 09:00 Selegiline HCl (Eldepryl) 5 mg DAILY PO Last administered on 10/07/16 09:39; Start 09/14/16 at 09:00; Stop 10/07/16 at 20:59; Status DC Trazodone HCl (Desyrel) 50 mg PRN QHS PRN PO INSOMNIA, MAY REPEAT X1 Last administered on 10/08/16 23:18; Start 09/14/16 at 19:15 Nystatin (Nystop) 1 wilfredo BID TP Last administered on 10/18/16 19:29; Start at 09:00 Nystatin (Nystop) 30 wilfredo STK-MED ONCE TP Last administered on 09/14/16 21:27; Start 09/14/16 at 21:27; Stop 09/14/16 at 21:28; Status DC Warfarin Sodium (Coumadin) 3 mg 1X WARF ONCE PO Last administered on 15:48; Start 09/15/16 at 16:00; Stop 09/15/16 at 16:01; Status DC Warfarin Sodium (Coumadin) 2.5 mg 1X ONCE PO Last administered on 09/15/16 15 :47; Start 09/15/16 at 15:15; Stop 09/15/16 at 15:17; Status DC Warfarin Sodium (Coumadin) 5 mg 1X WARF ONCE PO Last administered on 18:16; Start 09/16/16 at 16:00; Stop 09/16/16 at 16:01; Status DC Warfarin Sodium (Coumadin) 2 mg 1X WARF ONCE PO Last administered on 16:02; Start 09/17/16 at 16:00; Stop 09/17/16 at 16:01; Status DC Warfarin Sodium (Coumadin) 2.5 mg 1X WARF ONCE PO Last administered on 16:03; Start 09/17/16 at 16:00; Stop 09/17/16 at 16:01; Status DC Lorazepam (Ativan) 0.5 mg TID PO Last administered on 09/20/16 20:45; Start at 21:00; Stop 09/20/16 at 21:00; Status DC Lorazepam (Ativan) 0.5 mg BID PO Last administered on 09/24/16 19:38; Start at 09:00; Stop 09/24/16 at 21:01; Status DC Lorazepam (Ativan) 0.5 mg DAILY PO Last administered on 09/27/16 09:15; Start 09/25/16 at 09:00; Stop 09/27/16 at 10:39; Status DC Warfarin Sodium (Coumadin) 2.5 mg 1X WARF ONCE PO Last administered on 14:58; Start 09/18/16 at 16:00; Stop 09/18/16 at 16:01; Status DC Warfarin Sodium (Coumadin) 2 mg 1X WARF ONCE PO Last administered on 14:59; Start 09/18/16 at 16:00; Stop 09/18/16 at 16:01; Status DC Sertraline HCl (Zoloft) 25 mg DAILY PO Last administered on 09/24/16 07:43; Start 09/19/16 at 09:00; Stop 09/24/16 at 18:00; Status DC Warfarin Sodium (Coumadin - No Dose Today) 1 each 1X WARF ONCE MC Last administered on 09/19/16 14:14; Start 09/19/16 at 16:00; Stop 09/19/16 at 16:02 ; Status DC Quetiapine Fumarate (SEROquel) 25 mg QHS PO Last administered on 10/03/16 19: 12; Start 09/20/16 at 21:00; Stop 10/04/16 at 10:51; Status DC Warfarin Sodium (Coumadin) 2.5 mg 1X WARF ONCE PO Last administered on 16:31; Start 09/20/16 at 16:00; Stop 09/20/16 at 16:01; Status DC Valproic Acid (Depakene) 250 mg BID PO Last administered on 09/25/16 09:29; Start 09/20/16 at 21:00; Stop 09/25/16 at 18:06; Status DC Warfarin Sodium (Coumadin) 2.5 mg 1X WARF ONCE PO Last administered on 16:02; Start 09/21/16 at 16:00; Stop 09/21/16 at 16:01; Status DC Warfarin Sodium (Coumadin) 1 mg 1X WARF ONCE PO Last administered on 16:02; Start 09/21/16 at 16:00; Stop 09/21/16 at 16:01; Status DC Mirtazapine (Remeron) 7.5 mg QHS PO Last administered on 09/26/16 19:21; Start 09/21/16 at 21:00; Stop 09/27/16 at 10:31; Status DC Warfarin Sodium (Coumadin) 4 mg 1X WARF ONCE PO Last administered on 16:31; Start 09/22/16 at 16:00; Stop 09/22/16 at 16:01; Status DC Warfarin Sodium (Coumadin) 4 mg 1X WARF ONCE PO Last administered on 15:42; Start 09/23/16 at 16:00; Stop 09/23/16 at 16:01; Status DC Warfarin Sodium (Coumadin) 4 mg DAILY16 PO Last administered on 09/25/16 16:00 ; Start 09/24/16 at 16:00; Stop 09/26/16 at 08:25; Status DC Sertraline HCl (Zoloft) 50 mg DAILY PO Last administered on 10/03/16 08:52; Start 09/25/16 at 09:00; Stop 10/03/16 at 14:04; Status DC Valproic Acid (Depakene) 375 mg BID PO Last administered on 10/03/16 08:53; Start 09/25/16 at 21:00; Stop 10/03/16 at 18:33; Status DC Warfarin Sodium (Coumadin) 2 mg DAILY16 PO Last administered on 10/08/16 16:21 ; Start 09/26/16 at 16:00; Stop 10/08/16 at 16:53; Status DC Warfarin Sodium (Coumadin) 2.5 mg DAILY16 PO Last administered on 10/08/16 16: 21; Start 09/26/16 at 16:00; Stop 10/08/16 at 16:53; Status DC Quetiapine Fumarate (SEROquel) 12.5 mg BID92 PO Last administered on 09/30/16 13:36; Start 09/27/16 at 09:00; Stop 09/30/16 at 22:00; Status DC Buspirone HCl (Buspar) 10 mg TID PO Last administered on 10/18/16 19:27; Start 09/27/16 at 14:00 Mirtazapine (Remeron) 15 mg QHS PO Last administered on 10/18/16 19:27; Start 09/27/16 at 21:00 Lorazepam (Ativan) 0.5 mg DAILY PO Last administered on 10/17/16 07:51; Start 09/28/16 at 09:00; Stop 10/17/16 at 17:00; Status DC Quetiapine Fumarate (SEROquel) 12.5 mg 0900,1400,1700 PO Last administered on 08:52; Start 10/01/16 at 09:00; Stop 10/03/16 at 14:04; Status DC Olanzapine (ZyPREXA ZYDIS) 2.5 mg PRN Q2HR PRN PO PSYCHOSIS Last administered on 10/03/16 11:54; Start 10/03/16 at 10:00 Quetiapine Fumarate (SEROquel) 25 mg 0900,1400,1700 PO Last administered on 10/04 10:01; Start 10/03/16 at 17:00; Stop 10/04/16 at 10:51; Status DC Hydroxyzine HCl (Atarax) 50 mg PRN Q2HR PRN PO ANXIETY / AGITATION Last administered on 10/06/16 11:50; Start 10/03/16 at 14:15 Valproic Acid (Depakene) 500 mg BID PO Last administered on 10/18/16 19:26; Start 10/03/16 at 21:00 Risperidone (RisperDAL) 0.25 mg BID PO Last administered on 10/09/16 09:01; Start 10/04/16 at 21:00; Stop 10/09/16 at 18:21; Status DC Levothyroxine Sodium (Synthroid) 12.5 mcg DAILY06 PO Last administered on 05:16; Start 10/07/16 at 06:00 Lorazepam (Ativan) 0.25 mg PRN Q2HR PRN PO ANXIETY / AGITATION Last administered on 10/10/16 05:05; Start 10/07/16 at 21:15 Risperidone (RisperDAL) 0.375 mg DAILY PO Last administered on 10/18/16 08:20 ; Start 10/10/16 at 09:00 Risperidone (RisperDAL) 0.25 mg QHS PO Last administered on 10/18/16 19:28; Start 10/09/16 at 21:00 Warfarin Sodium (Coumadin - No Dose Today) 1 each 1X WARF ONCE MC Last administered on 10/10/16 14:23; Start 10/10/16 at 16:00; Stop 10/10/16 at 16:01; Status DC Haloperidol Lactate (Haldol) 5 mg DAILY IM Last administered on 10/12/16 08:42 ; Start 10/10/16 at 08:00; Stop 10/12/16 at 18:58; Status DC Lorazepam (Ativan) 0.5 mg DAILY IM Last administered on 10/12/16 08:43; Start 10/10/16 at 08:00; Stop 10/12/16 at 18:43; Status DC Warfarin Sodium (Coumadin) 4 mg DAILY16 PO Last administered on 10/14/16 16:00 ; Start 10/11/16 at 16:00; Stop 10/15/16 at 09:01; Status DC Fluvoxamine Maleate (Luvox) 25 mg HS PO Last administered on 10/14/16 19:23; Start 10/11/16 at 21:00; Stop 10/15/16 at 17:44; Status DC Haloperidol (Haldol) 2.5 mg DAILY PO Last administered on 10/15/16 08:47; Start 10/13/16 at 09:00; Stop 10/15/16 at 19:00; Status DC Warfarin Sodium (Coumadin) 2.5 mg 1X WARF ONCE PO Last administered on 16:22; Start 10/15/16 at 16:00; Stop 10/15/16 at 16:01; Status DC Warfarin Sodium (Coumadin) 2 mg 1X WARF ONCE PO Last administered on 16:22; Start 10/15/16 at 16:00; Stop 10/15/16 at 16:01; Status DC Fluvoxamine Maleate (Luvox) 50 mg HS PO Last administered on 10/18/16 19:27; Start 10/15/16 at 21:00 Warfarin Sodium (Coumadin) 4 mg 1X WARF ONCE PO Last administered on 15:34; Start 10/16/16 at 16:00; Stop 10/16/16 at 16:01; Status DC Warfarin Sodium (Coumadin) 2.5 mg 1X WARF ONCE PO Last administered on 14:42; Start 10/17/16 at 16:00; Stop 10/17/16 at 16:01; Status DC Warfarin Sodium (Coumadin) 2 mg 1X WARF ONCE PO Last administered on 14:42; Start 10/17/16 at 16:00; Stop 10/17/16 at 16:01; Status DC Warfarin Sodium (Coumadin) 4 mg Q48H ONCE PO ; Start 10/18/16 at 16:00; Stop at 16:00; Status DC Warfarin Sodium (Coumadin) 2 mg Q48H ONCE PO ; Start 10/19/16 at 16:00; Stop at 16:00; Status DC Warfarin Sodium (Coumadin) 2.5 mg Q48H ONCE PO ; Start 10/19/16 at 16:00; Stop 10/19/16 at 16:00; Status DC Warfarin Sodium (Coumadin) 4 mg Q48H PO Last administered on 10/18/16 14:51; Start 10/18/16 at 16:00 Warfarin Sodium (Coumadin) 2 mg Q48H PO ; Start 10/19/16 at 16:00 Warfarin Sodium (Coumadin) 2.5 mg Q48H PO ; Start 10/19/16 at 16:00 Ferrous Sulfate (Feosol) 325 mg DAILYWBKFT PO ; Start 10/19/16 at 08:00 Active Scripts Active Reported Therems-M (Multivits,Th W-Fe,Other Min) 1 Each Tablet 1 Each PO DAILY Tamsulosin Hcl 0.4 Mg Cap.er.24h 0.4 Mg PO DAILY Lisinopril 5 Mg Tablet 5 Mg PO DAILY Famotidine 20 Mg Tablet 20 Mg PO DAILY Emsam (Selegiline) 1 Each Patch.td24 1 Each TD DAILY Aspirin 81 Mg Tab.chew 81 Mg PO DAILY Amiodarone Hcl 200 Mg Tablet 100 Mg PO DAILY Depakote (Divalproex Sodium) 250 Mg Tablet.dr 250 Mg PO BID Coumadin (Warfarin Sodium) 4 Mg Tablet 4.5 Mg PO DAILY Ativan (Lorazepam) 0.5 Mg Tablet 0.5 Mg PO PRN BID PRN Imodium A-D (Loperamide HCl) 2 Mg Capsule 2 Mg PO PRN PRN MDD 12 mg Ativan (Lorazepam) 1 Mg Tablet 1 Mg PO BID Buspirone Hcl 7.5 Mg Tablet 7.5 Mg PO BID Diagnosis: Problems: (1) Dementia (2) Anxiety disorder (3) Impulse control disorder (4) Dementia, vascular, with depression (5) Dementia, vascular, with delusions (6) Dementia in Alzheimer's disease with depression (7) Dementia in Alzheimer's disease with delusions LINDSAY BROWN MD Oct 18, 2016 20:09
--- NOTE | 2016-10-18 22:00 | NUR ---
Behavior Intervention Response and Plan: BIRP Note: Behavior: Assumed Care of patient, patient located in Day Room at shift change. Patient exhibited the following behavior Disorganized, Wander, Compliant. Brief assessment on rounds of vital signs, medication needs, lab studies, and pain. Treatment plan problems . Intervention: Patient assessed and the following interventions initiated safety checks 15 Minute Checks Call greenwood in reach , Medications , Nutrition. Response: After interactions and interventions patient responded in the following manner, Wandering , Disorganized ,Compliant. Continue to assess behaviors and condition will continue to monitor throughout the shift as needed. 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 Continue to assess patient for changes in above assessment. Monitor for medication needs, pain, and safety concerns. Hourly rounding performed to ensure safe environment.
[2016-10-19] MEDS ORDERED: ACET325T9 PO (03:23)
[2016-10-19] MEDS ORDERED: CHOL500021 PO (03:26)
[2016-10-19] MEDS ORDERED: FERR-26 PO (03:27)
[2016-10-19] MEDS ORDERED: LEVO25TA4 PO (03:28)
[2016-10-19] MEDS ORDERED: MAGN400O7 PO (03:35)
[2016-10-19] MEDS ORDERED: MAG30ORA2 PO (03:35)
[2016-10-19] MEDS ORDERED: METH29OI TP (03:36)
[2016-10-19] MEDS ORDERED: NYST15PO9 TP (03:37)
[2016-10-19] MEDS ORDERED: MIRT15TA3 PO (03:37)
[2016-10-19] MEDS ORDERED: OLAN5TAB5 PO (03:38)
[2016-10-19] MEDS ORDERED: VALP250S PO (03:40)
[2016-10-19] MEDS ORDERED: WARF2.5T83 PO (03:44)
[2016-10-19] MEDS ORDERED: WARF2TAB PO (03:44)
[2016-10-19] MEDS ORDERED: BUSP10TA PO (03:47)
[2016-10-19] MEDS ORDERED: FLUV50TA2 PO (03:49)
[2016-10-19] MEDS ORDERED: HYDR50TA PO (03:50)
[2016-10-19] MEDS ORDERED: RISP0.2519 PO ×2 (03:51→03:52)
[2016-10-19] MEDS ORDERED: TRAZ50TA15 PO (03:52)
[2016-10-19] MEDS: LEVOTHYROXINE 25 MCG TABLET. PO SCH (05:24)
[2016-10-19 06:25] VITALS: BP 133/81
--- NOTE | 2016-10-19 08:00 | PN ---
DATE: 10/18/2016 PSYCHIATRIC PROGRESS NOTE This is a late entry of 10/18/2016 covers elements not covered in my initial note. SUBJECTIVE: The patient was staffed at a treatment team meeting with the entire team seen individually evening of 10/18/2016, pleasant, smiling sleeping about 6-1/2 hours. Appetite 100% compliant with medications. We will repeat labs in the morning. REVIEW OF SYSTEMS: No CV, , pulmonary, eye, ENT system symptoms on review. MENTAL STATUS EXAM: Oriented to himself. Insight, judgment, recent and remote memory, attention, concentration, fund of knowledge poor, consistent with his diagnosis. Remote memory is better than recent he talked about his airplanes as I met with him. LABORATORY DATA: Reviewed. IMPRESSION: Unchanged. PLAN: Continue current psychotropics mentioned in my initial note. MAN Phoenix BROWN MD DR: JEREL/tavo JOB#: [id number] / [id number]
--- NOTE | 2016-10-19 08:43 | NUR ---
[facility] Social Work Discharge Planning Form Patient Name ABBEY MATHIS Admit Date: 09/12/16 DISCHARGE PLAN Discharge Destination: return to [facility] Assessment: completed Transportation: facility coordinated Assisted Transport for 10/19/16 at 11:00 DISCHARGE TO FACILITY Facility: [facility] Address: [address] [place] [address] Contact Name: PCP: at facility w/in 10-12 days Psychiatrist: at facility w/in 10-12 days
[2016-10-19] MEDS: NYSTATIN TOPICAL POWDER 30GM BOTTLE. TP SCH ×3 (09:00→19:40)
[2016-10-19] MEDS: VALPROATE ACID 250 MG/5 ML ORAL SOLUTION PO SCH ×3 (09:03→19:39)
[2016-10-19] MEDS: risperiDONE 0.25 MG TABLET. PO SCH ×3 (09:03→19:39)
[2016-10-19] MEDS: LISINOPRIL 5 MG TABLET. PO SCH ×2 (09:03→13:10)
[2016-10-19] MEDS: busPIRone 10 MG TABLET. PO SCH ×4 (09:04→19:39)
[2016-10-19] MEDS: ASPIRIN 81 MG TAB.CHEW PO SCH ×2 (09:04→13:09)
[2016-10-19] MEDS: AMIODARONE HCL 200 MG TABLET PO SCH ×2 (09:05→13:08)
[2016-10-19] MEDS: TAMSULOSIN 0.4 MG CAP.ER.24H. PO SCH ×2 (09:05→13:09)
[2016-10-19] MEDS: MULTIVITAMIN with MINERAL TABLET. PO SCH ×2 (09:05→13:10)
[2016-10-19] MEDS: FAMOTIDINE 20 MG TABLET PO SCH ×2 (09:05→13:09)
[2016-10-19] MEDS: CHOLECALCIFEROL (VITAMIN D3) 50,000 UNIT CAPSULE PO SCH ×2 (09:07→13:09)
[2016-10-19] MEDS: FERROUS SULFATE 325 MG TABLET PO SCH ×2 (09:07→13:08)
[2016-10-19] MEDS ORDERED: HALOPERIDOL 5 MG TABLET PO SCH (09:45)
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
[2016-10-19] MEDS: LORazepam 2 MG/ML VIAL IM SCH (10:55)
[2016-10-19] MEDS: HALOPERIDOL LACT 5 MG/ML VIAL. IM SCH (10:55)
--- NOTE | 2016-10-19 13:11 | NUR ---
Am meds refused earlier, pt took meds now without difficulty.
--- NOTE | 2016-10-19 13:14 | NUR ---
Behavior Intervention Response and Plan: BIRP Note: Behavior: Assumed Care of patient, patient located in Hallway at shift change. Patient exhibited the following behavior Disorganized, Non Compliant with Meds, Irritable. Brief assessment on rounds of vital signs, medication needs, lab studies, and pain. Treatment plan problems . Intervention: Patient assessed and the following interventions initiated safety checks 15 Minute Checks Cognitive Assessment , Head to toe Assessment , Medications. Response: After interactions and interventions patient responded in the following manner, Calm , Disorganized ,Compliant. Continue to assess behaviors and condition will continue to monitor throughout the shift as needed. 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 Continue to assess patient for changes in above assessment. Monitor for medication needs, pain, and safety concerns. Hourly rounding performed to ensure safe environment.
--- NOTE | 2016-10-19 13:15 | NUR ---
THERAPEUTIC RECREATION GROUP NOTE TITLE :Sing along/ Karaoke ACTIVITY : Music GOAL : Increase socialization, elevate mood, stimulate memory DURATION : 120 Minutes RESPONSE : No participation.
[2016-10-19] MEDS ORDERED: WARFARIN 2.5 MG TABLET. PO ONE (16:00)
[2016-10-19] MEDS ORDERED: WARFARIN 2 MG TABLET. PO ONE (16:00)
[2016-10-19] MEDS: WARFARIN 2.5 MG TABLET. PO SCH (16:20)
[2016-10-19] MEDS: WARFARIN 2 MG TABLET. PO SCH (16:20)
[2016-10-19 16:33] VITALS: BP 102/70
[2016-10-19] MEDS: MIRTAZAPINE 15 MG TABLET PO SCH (19:40)
--- NOTE | 2016-10-19 20:59 | PDOC ---
Exam Blake Demential Exam: Blake Note: Please also refer to the separate dictated note~for this date of service dictated separately.~Patient seen individually. Discussed the patient with Nursing staff reviewed the chart.~Reviewed interim history and current functioning. Reviewed vital signs,~Labs/ Radiology~and current medications noted below. Continue current treatment with the changes noted in the dictated addendum note Assessment: Vital Signs: Vital Signs Date Time Temp Pulse Resp B/P (MAP) Pulse Ox O2 Delivery O2 Flow Rate FiO2 10/19/16 16:33 97.2 69 21 102/70 (81) 95 10/18/16 16:04 Room Air I&O Intake and Output 10/19/16 07:00 Intake Total 480 ml Balance 480 ml Intake Oral 480 ml Current Medications: Meds: Current Medications Acetaminophen (Tylenol) 650 mg PRN Q6HRS PRN PO PAIN / TEMP Last administered on 09/15/16 20:02; Start 09/12/16 at 19:15 Multi-Ingredient Ointment (Analgesic Spencer) 1 derek PRN QID PRN TP MUSCLE PAIN; Start 09/12/16 at 19:15 Al Hydroxide/Mg Hydroxide (Mylanta Plus Xs) 15 ml PRN AFTMEALHC PRN PO DYSPEPSIA; Start 09/12/16 at 19:15 Magnesium Hydroxide (Milk Of Magnesia) 2,400 mg PRN QHS PRN PO CONSTIPATION; Start 09/12/16 at 19:15 Divalproex Sodium (Depakote) 250 mg BID PO Last administered on 09/20/16 08:38 ; Start 09/12/16 at 21:00; Stop 09/20/16 at 10:41; Status DC Lorazepam (Ativan) 0.5 mg PRN BID PRN PO ANXIETY / AGITATION Last administered on 10/07/16 19:22; Start 09/12/16 at 19:45; Stop 10/07/16 at 20:59; Status DC Lorazepam (Ativan) 1 mg BID PO Last administered on 09/17/16 08:49; Start 02/19 at 21:00; Stop 09/17/16 at 18:05; Status DC Selegiline HCl (Emsam) 1 patch DAILY TD ; Start 09/13/16 at 09:00; Stop at 18:35; Status DC Buspirone HCl (Buspar) 7.5 mg BID PO Last administered on 09/27/16 09:12; Start 09/12/16 at 21:00; Stop 09/27/16 at 10:31; Status DC Amiodarone HCl (Cordarone) 100 mg DAILY PO Last administered on 10/19/16 13:08 ; Start 09/13/16 at 09:00 Aspirin (Children'S Aspirin) 81 mg DAILY PO Last administered on 10/19/16 13: 09; Start 09/13/16 at 09:00 Famotidine (Pepcid) 20 mg DAILY PO Last administered on 10/19/16 13:09; Start 09/13/16 at 09:00 Lisinopril (Prinivil) 5 mg DAILY PO Last administered on 10/19/16 13:10; Start 09/13/16 at 09:00 Loperamide HCl (Imodium) 2 mg PRN Q4HRS PRN PO DIARRHEA; Start 09/12/16 at 19: 45 Tamsulosin HCl (Flomax) 0.4 mg DAILY PO Last administered on 10/19/16 13:09; Start 09/13/16 at 09:00 Warfarin Sodium (Coumadin) 2.5 mg DAILY16 PO Last administered on 09/14/16 16: 05; Start 09/13/16 at 16:00; Stop 09/15/16 at 15:03; Status DC Multivitamins/ Calcium (Thera-M Plus) 1 tab DAILY PO Last administered on 13:10; Start 09/13/16 at 09:00 Warfarin Sodium (Coumadin) 2 mg DAILY16 PO Last administered on 09/14/16 16:06 ; Start 09/13/16 at 16:00; Stop 09/15/16 at 15:02; Status DC Warfarin Sodium (Coumadin Per Pharmacy) 1 each PRN DAILY PRN MC SEE COMMENTS Last administered on 10/18/16 08:19; Start 09/13/16 at 03:15 Vitamin D (Vitamin D3) 50,000 unit WEEKLY PO Last administered on 10/19/16 13: 09; Start 09/14/16 at 09:00 Selegiline HCl (Eldepryl) 5 mg DAILY PO Last administered on 10/07/16 09:39; Start 09/14/16 at 09:00; Stop 10/07/16 at 20:59; Status DC Trazodone HCl (Desyrel) 50 mg PRN QHS PRN PO INSOMNIA, MAY REPEAT X1 Last administered on 10/08/16 23:18; Start 09/14/16 at 19:15 Nystatin (Nystop) 1 derek BID TP Last administered on 10/19/16 19:40; Start at 09:00 Nystatin (Nystop) 30 derek STK-MED ONCE TP Last administered on 09/14/16 21:27; Start 09/14/16 at 21:27; Stop 09/14/16 at 21:28; Status DC Warfarin Sodium (Coumadin) 3 mg 1X WARF ONCE PO Last administered on 15:48; Start 09/15/16 at 16:00; Stop 09/15/16 at 16:01; Status DC Warfarin Sodium (Coumadin) 2.5 mg 1X ONCE PO Last administered on 09/15/16 15 :47; Start 09/15/16 at 15:15; Stop 09/15/16 at 15:17; Status DC Warfarin Sodium (Coumadin) 5 mg 1X WARF ONCE PO Last administered on 18:16; Start 09/16/16 at 16:00; Stop 09/16/16 at 16:01; Status DC Warfarin Sodium (Coumadin) 2 mg 1X WARF ONCE PO Last administered on 16:02; Start 09/17/16 at 16:00; Stop 09/17/16 at 16:01; Status DC Warfarin Sodium (Coumadin) 2.5 mg 1X WARF ONCE PO Last administered on 16:03; Start 09/17/16 at 16:00; Stop 09/17/16 at 16:01; Status DC Lorazepam (Ativan) 0.5 mg TID PO Last administered on 09/20/16 20:45; Start at 21:00; Stop 09/20/16 at 21:00; Status DC Lorazepam (Ativan) 0.5 mg BID PO Last administered on 09/24/16 19:38; Start at 09:00; Stop 09/24/16 at 21:01; Status DC Lorazepam (Ativan) 0.5 mg DAILY PO Last administered on 09/27/16 09:15; Start 09/25/16 at 09:00; Stop 09/27/16 at 10:39; Status DC Warfarin Sodium (Coumadin) 2.5 mg 1X WARF ONCE PO Last administered on 14:58; Start 09/18/16 at 16:00; Stop 09/18/16 at 16:01; Status DC Warfarin Sodium (Coumadin) 2 mg 1X WARF ONCE PO Last administered on 14:59; Start 09/18/16 at 16:00; Stop 09/18/16 at 16:01; Status DC Sertraline HCl (Zoloft) 25 mg DAILY PO Last administered on 09/24/16 07:43; Start 09/19/16 at 09:00; Stop 09/24/16 at 18:00; Status DC Warfarin Sodium (Coumadin - No Dose Today) 1 each 1X WARF ONCE MC Last administered on 09/19/16 14:14; Start 09/19/16 at 16:00; Stop 09/19/16 at 16:02 ; Status DC Quetiapine Fumarate (SEROquel) 25 mg QHS PO Last administered on 10/03/16 19: 12; Start 09/20/16 at 21:00; Stop 10/04/16 at 10:51; Status DC Warfarin Sodium (Coumadin) 2.5 mg 1X WARF ONCE PO Last administered on 16:31; Start 09/20/16 at 16:00; Stop 09/20/16 at 16:01; Status DC Valproic Acid (Depakene) 250 mg BID PO Last administered on 09/25/16 09:29; Start 09/20/16 at 21:00; Stop 09/25/16 at 18:06; Status DC Warfarin Sodium (Coumadin) 2.5 mg 1X WARF ONCE PO Last administered on 16:02; Start 09/21/16 at 16:00; Stop 09/21/16 at 16:01; Status DC Warfarin Sodium (Coumadin) 1 mg 1X WARF ONCE PO Last administered on 16:02; Start 09/21/16 at 16:00; Stop 09/21/16 at 16:01; Status DC Mirtazapine (Remeron) 7.5 mg QHS PO Last administered on 09/26/16 19:21; Start 09/21/16 at 21:00; Stop 09/27/16 at 10:31; Status DC Warfarin Sodium (Coumadin) 4 mg 1X WARF ONCE PO Last administered on 16:31; Start 09/22/16 at 16:00; Stop 09/22/16 at 16:01; Status DC Warfarin Sodium (Coumadin) 4 mg 1X WARF ONCE PO Last administered on 15:42; Start 09/23/16 at 16:00; Stop 09/23/16 at 16:01; Status DC Warfarin Sodium (Coumadin) 4 mg DAILY16 PO Last administered on 09/25/16 16:00 ; Start 09/24/16 at 16:00; Stop 09/26/16 at 08:25; Status DC Sertraline HCl (Zoloft) 50 mg DAILY PO Last administered on 10/03/16 08:52; Start 09/25/16 at 09:00; Stop 10/03/16 at 14:04; Status DC Valproic Acid (Depakene) 375 mg BID PO Last administered on 10/03/16 08:53; Start 09/25/16 at 21:00; Stop 10/03/16 at 18:33; Status DC Warfarin Sodium (Coumadin) 2 mg DAILY16 PO Last administered on 10/08/16 16:21 ; Start 09/26/16 at 16:00; Stop 10/08/16 at 16:53; Status DC Warfarin Sodium (Coumadin) 2.5 mg DAILY16 PO Last administered on 10/08/16 16: 21; Start 09/26/16 at 16:00; Stop 10/08/16 at 16:53; Status DC Quetiapine Fumarate (SEROquel) 12.5 mg BID92 PO Last administered on 09/30/16 13:36; Start 09/27/16 at 09:00; Stop 09/30/16 at 22:00; Status DC Buspirone HCl (Buspar) 10 mg TID PO Last administered on 10/19/16 19:39; Start 09/27/16 at 14:00 Mirtazapine (Remeron) 15 mg QHS PO Last administered on 10/19/16 19:40; Start 09/27/16 at 21:00 Lorazepam (Ativan) 0.5 mg DAILY PO Last administered on 10/17/16 07:51; Start 09/28/16 at 09:00; Stop 10/17/16 at 17:00; Status DC Quetiapine Fumarate (SEROquel) 12.5 mg 0900,1400,1700 PO Last administered on 08:52; Start 10/01/16 at 09:00; Stop 10/03/16 at 14:04; Status DC Olanzapine (ZyPREXA ZYDIS) 2.5 mg PRN Q2HR PRN PO PSYCHOSIS Last administered on 10/03/16 11:54; Start 10/03/16 at 10:00 Quetiapine Fumarate (SEROquel) 25 mg 0900,1400,1700 PO Last administered on 10/04 10:01; Start 10/03/16 at 17:00; Stop 10/04/16 at 10:51; Status DC Hydroxyzine HCl (Atarax) 50 mg PRN Q2HR PRN PO ANXIETY / AGITATION Last administered on 10/06/16 11:50; Start 10/03/16 at 14:15 Valproic Acid (Depakene) 500 mg BID PO Last administered on 10/19/16 19:39; Start 10/03/16 at 21:00 Risperidone (RisperDAL) 0.25 mg BID PO Last administered on 10/09/16 09:01; Start 10/04/16 at 21:00; Stop 10/09/16 at 18:21; Status DC Levothyroxine Sodium (Synthroid) 12.5 mcg DAILY06 PO Last administered on 05:24; Start 10/07/16 at 06:00 Lorazepam (Ativan) 0.25 mg PRN Q2HR PRN PO ANXIETY / AGITATION Last administered on 10/10/16 05:05; Start 10/07/16 at 21:15 Risperidone (RisperDAL) 0.375 mg DAILY PO Last administered on 10/19/16 13:10 ; Start 10/10/16 at 09:00 Risperidone (RisperDAL) 0.25 mg QHS PO Last administered on 10/19/16 19:39; Start 10/09/16 at 21:00 Warfarin Sodium (Coumadin - No Dose Today) 1 each 1X WARF ONCE MC Last administered on 10/10/16 14:23; Start 10/10/16 at 16:00; Stop 10/10/16 at 16:01; Status DC Haloperidol Lactate (Haldol) 5 mg DAILY IM Last administered on 10/12/16 08:42 ; Start 10/10/16 at 08:00; Stop 10/12/16 at 18:58; Status DC Lorazepam (Ativan) 0.5 mg DAILY IM Last administered on 10/12/16 08:43; Start 10/10/16 at 08:00; Stop 10/12/16 at 18:43; Status DC Warfarin Sodium (Coumadin) 4 mg DAILY16 PO Last administered on 10/14/16 16:00 ; Start 10/11/16 at 16:00; Stop 10/15/16 at 09:01; Status DC Fluvoxamine Maleate (Luvox) 25 mg HS PO Last administered on 10/14/16 19:23; Start 10/11/16 at 21:00; Stop 10/15/16 at 17:44; Status DC Haloperidol (Haldol) 2.5 mg DAILY PO Last administered on 10/15/16 08:47; Start 10/13/16 at 09:00; Stop 10/15/16 at 19:00; Status DC Warfarin Sodium (Coumadin) 2.5 mg 1X WARF ONCE PO Last administered on 16:22; Start 10/15/16 at 16:00; Stop 10/15/16 at 16:01; Status DC Warfarin Sodium (Coumadin) 2 mg 1X WARF ONCE PO Last administered on 16:22; Start 10/15/16 at 16:00; Stop 10/15/16 at 16:01; Status DC Fluvoxamine Maleate (Luvox) 50 mg HS PO Last administered on 10/19/16 19:39; Start 10/15/16 at 21:00 Warfarin Sodium (Coumadin) 4 mg 1X WARF ONCE PO Last administered on 15:34; Start 10/16/16 at 16:00; Stop 10/16/16 at 16:01; Status DC Warfarin Sodium (Coumadin) 2.5 mg 1X WARF ONCE PO Last administered on 14:42; Start 10/17/16 at 16:00; Stop 10/17/16 at 16:01; Status DC Warfarin Sodium (Coumadin) 2 mg 1X WARF ONCE PO Last administered on 14:42; Start 10/17/16 at 16:00; Stop 10/17/16 at 16:01; Status DC Warfarin Sodium (Coumadin) 4 mg Q48H ONCE PO ; Start 10/18/16 at 16:00; Stop at 16:00; Status DC Warfarin Sodium (Coumadin) 2 mg Q48H ONCE PO ; Start 10/19/16 at 16:00; Stop at 16:00; Status DC Warfarin Sodium (Coumadin) 2.5 mg Q48H ONCE PO ; Start 10/19/16 at 16:00; Stop 10/19/16 at 16:00; Status DC Warfarin Sodium (Coumadin) 4 mg Q48H PO Last administered on 10/18/16 14:51; Start 10/18/16 at 16:00 Warfarin Sodium (Coumadin) 2 mg Q48H PO Last administered on 10/19/16 16:20; Start 10/19/16 at 16:00 Warfarin Sodium (Coumadin) 2.5 mg Q48H PO Last administered on 10/19/16 16:20 ; Start 10/19/16 at 16:00 Ferrous Sulfate (Feosol) 325 mg DAILYWBKFT PO Last administered on 10/19/16 13 :08; Start 10/19/16 at 08:00 Haloperidol (Haldol) 5 mg 1X PO Last administered on 10/19/16 09:38; Start at 09:45 Lorazepam (Ativan) 0.5 mg DAILY IM Last administered on 10/19/16 10:55; Start 10/19/16 at 09:00 Haloperidol Lactate (Haldol) 5 mg DAILY IM Last administered on 10/19/16 10:55 ; Start 10/19/16 at 09:00 Active Scripts Active Reported Trazodone Hcl 50 Mg Tablet 50 Mg PO PRN QHS PRN Risperdal (Risperidone) 0.25 Mg Tablet 0.25 Mg PO QHS Risperdal (Risperidone) 0.25 Mg Tablet 0.375 Mg PO DAILY Hydroxyzine Hcl 50 Mg Tablet 50 Mg PO PRN Q2HR PRN Fluvoxamine Maleate 50 Mg Tablet 50 Mg PO QHS Buspirone Hcl 10 Mg Tablet 10 Mg PO TID Coumadin (Warfarin Sodium) 2.5 Mg Tablet 2.5 Mg PO Coumadin (Warfarin Sodium) 2 Mg Tablet 2 Mg PO Depakene (Valproate Sodium) 250 Mg/5 Ml Solution 500 Mg PO BID Zyprexa Zydis (Olanzapine) 5 Mg Tab.rapdis 2.5 Mg PO PRN Q2HR PRN Nystatin 15 Gm Powder 1 Derek TP BID Mirtazapine 15 Mg Tablet 15 Mg PO QHS Analgesic Spencer (Methyl Salicylate/Menthol) 28 Gm Oint...g. 1 Derek TP PRN QID PRN Milk Of Magnesia (Magnesium Hydroxide) 400 Mg/5 Ml Oral.susp 2,400 Mg PO PRN QHS PRN Mag-Al Plus Xs Suspension (Mag Hydrox/Al Hydrox/Simeth) 30 Ml Oral.susp 15 Ml PO PRN AFTMEALHC PRN Levothyroxine Sodium 25 Mcg Tablet 12.5 Mcg PO DAILY06 Ferrous Sulfate 325 Mg Tablet 325 Mg PO DAILYWBKFT D3-50 (Cholecalciferol (Vitamin D3)) 50,000 Unit Capsule 50,000 Unit PO WEEKLY Tylenol (Acetaminophen) 325 Mg Tablet 650 Mg PO PRN Q6HRS PRN Therems-M (Multivits, W-Fe,Other Min) 1 Each Tablet 1 Each PO DAILY Tamsulosin Hcl 0.4 Mg Cap.er.24h 0.4 Mg PO DAILY Lisinopril 5 Mg Tablet 5 Mg PO DAILY Famotidine 20 Mg Tablet 20 Mg PO DAILY Emsam (Selegiline) 1 Each Patch.td24 1 Each TD DAILY Aspirin 81 Mg Tab.chew 81 Mg PO DAILY Amiodarone Hcl 200 Mg Tablet 100 Mg PO DAILY Depakote (Divalproex Sodium) 250 Mg Tablet.dr 250 Mg PO BID Coumadin (Warfarin Sodium) 4 Mg Tablet 4.5 Mg PO DAILY Ativan (Lorazepam) 0.5 Mg Tablet 0.5 Mg PO PRN BID PRN Imodium A-D (Loperamide HCl) 2 Mg Capsule 2 Mg PO PRN PRN MDD 12 mg Ativan (Lorazepam) 1 Mg Tablet 1 Mg PO BID Buspirone Hcl 7.5 Mg Tablet 7.5 Mg PO BID Diagnosis: Problems: (1) Dementia (2) Anxiety disorder (3) Impulse control disorder (4) Dementia, vascular, with depression (5) Dementia, vascular, with delusions (6) Dementia in Alzheimer's disease with depression (7) Dementia in Alzheimer's disease with delusions LINDSAY BROWN MD Oct 19, 2016 20:59
--- NOTE | 2016-10-20 00:14 | NUR ---
Behavior Intervention Response and Plan: BIRP Note: Behavior: Assumed Care of patient, patient located in Day Room at shift change. Patient exhibited the following behavior Calm, Compliant, Cooperative. Brief assessment on rounds of vital signs, medication needs, lab studies, and pain. Treatment plan problems Danger to Others and Fall Risk. Intervention: Patient assessed and the following interventions initiated safety checks 15 Minute Checks Cognitive Assessment , Head to toe Assessment , Medications. Response: After interactions and interventions patient responded in the following manner, Wandering , Calm ,Compliant. Continue to assess behaviors and condition will continue to monitor throughout the shift as needed. Plan: Continue to monitor Master Treatment Plan for patient's progress toward short term goals of Decreased Agitation, Decreased Aggression, intermodal customer service goals to return to previous living setting vs placement. Continue to assess patient for changes in above assessment. Monitor for medication needs, pain, and safety concerns. Hourly rounding performed to ensure safe environment.
[2016-10-20 06:23] VITALS: BP 114/70
[2016-10-20] MEDS: LEVOTHYROXINE 25 MCG TABLET. PO SCH (06:25)
[2016-10-20 08:24] LABS: VAL ACID 46 mcg/mL (50-100)
[2016-10-20] MEDS: TAMSULOSIN 0.4 MG CAP.ER.24H. PO SCH (10:31)
[2016-10-20] MEDS: ASPIRIN 81 MG TAB.CHEW PO SCH (10:32)
[2016-10-20] MEDS: MULTIVITAMIN with MINERAL TABLET. PO SCH (10:32)
[2016-10-20] MEDS: FERROUS SULFATE 325 MG TABLET PO SCH (10:32)
[2016-10-20] MEDS: risperiDONE 0.25 MG TABLET. PO SCH ×2 (10:32→19:30)
[2016-10-20] MEDS: LISINOPRIL 5 MG TABLET. PO SCH (10:33)
[2016-10-20] MEDS: AMIODARONE HCL 200 MG TABLET PO SCH (10:34)
[2016-10-20] MEDS: FAMOTIDINE 20 MG TABLET PO SCH (10:34)
[2016-10-20] MEDS: VALPROATE ACID 250 MG/5 ML ORAL SOLUTION PO SCH ×2 (10:34→19:30)
[2016-10-20] MEDS: busPIRone 10 MG TABLET. PO SCH ×3 (10:34→19:30)
[2016-10-20] MEDS: NYSTATIN TOPICAL POWDER 30GM BOTTLE. TP SCH ×2 (10:34→19:54)
[2016-10-20] MEDS: HALOPERIDOL LACT 5 MG/ML VIAL. IM SCH (10:35)
[2016-10-20] MEDS: LORazepam 2 MG/ML VIAL IM SCH (10:36)
--- NOTE | 2016-10-20 15:53 | NUR ---
Behavior Intervention Response and Plan: BIRP Note: Behavior: Assumed Care of patient, patient located in Day Room at shift change. Patient exhibited the following behavior Calm, Compliant, Cooperative. Brief assessment on rounds of vital signs, medication needs, lab studies, and pain. Treatment plan problems . Intervention: Patient assessed and the following interventions initiated safety checks 15 Minute Checks Cognitive Assessment , Head to toe Assessment , Medications. Response: After interactions and interventions patient responded in the following manner, Disorganized , Calm ,Compliant. Continue to assess behaviors and condition will continue to monitor throughout the shift as needed. Plan: Continue to monitor Master Treatment Plan for patient's progress toward short term goals of Decreased Anxiety, Decreased Agitation, long-term goals to return to previous living setting vs placement. Continue to assess patient for changes in above assessment. Monitor for medication needs, pain, and safety concerns. Hourly rounding performed to ensure safe environment.
[2016-10-20 16:46] VITALS: BP 101/66
[2016-10-20] MEDS: WARFARIN 4 MG TABLET. PO SCH (16:54)
[2016-10-20] MEDS: MIRTAZAPINE 15 MG TABLET PO SCH (19:30)
--- NOTE | 2016-10-20 20:09 | PN ---
DATE: 10/19/2016 PSYCHIATRIC PROGRESS NOTE This is a late entry of 10/19/2016 covers elements not covered in my initial note. SUBJECTIVE: The patient was planned to be discharged on 10/19/2016, but became extremely delusional, agitated. Nursing staff had called me as an emergency and we had to postpone the discharge and given the extent of his paranoia, anger aggression be restarted on Haldol 5 mg IM, Ativan 0.5 mg IM, scheduled daily since oral psychotropics once again, but in affective. My plan would be once he is stable again in a day or two on the IM to drop it down to the p.o., but this time not discontinue it like attempted at the last time to minimize side effects. REVIEW OF SYSTEMS: No CV, , eye, ENT or pulmonary system symptoms on review, but when I discussed the above situation at length with him individually he states that he had been "bad boy." It is remarkable that he seemed to remember somewhat happened earlier in the day, by the time I met him in the evening. MENTAL STATUS EXAM: Oriented to himself. Insight, judgment, recent and remote memory, attention, concentration, fund of knowledge poor, consistent with his diagnosis. His did visit him on 10/19/2016. LABORATORY DATA: Reviewed. IMPRESSION: Major neurocognitive disorder, Alzheimer, vascular with depression, delusion, behavioral disturbance; anxiety disorder, unspecified; impulse control disorder, unspecified. Rest unchanged. PLAN: Continue current psychotropic mentioned in my initial note along with Luvox and the IM Haldol, Ativan, which was restarted. We may need to adjust the Depakene upwards since the last level was 46 slightly subtherapeutic, but we will see how he does initially with the Haldol, Ativan IM before increasing the Depakene. LINDSAY BROWN MD DR: JEREL/tavo JOB#: [id number] / [id number]
--- NOTE | 2016-10-20 22:13 | NUR ---
Behavior Intervention Response and Plan: BIRP Note: Behavior: Assumed Care of patient, patient located in Day Room at shift change. Patient exhibited the following behavior Calm, Compliant, Cooperative. Brief assessment on rounds of vital signs, medication needs, lab studies, and pain. Treatment plan problems Danger to Others and Fall Risk. Intervention: Patient assessed and the following interventions initiated safety checks 15 Minute Checks Cognitive Assessment , Head to toe Assessment , Medications. Response: After interactions and interventions patient responded in the following manner, Wandering , Calm ,Compliant. Continue to assess behaviors and condition will continue to monitor throughout the shift as needed. Plan: Continue to monitor Master Treatment Plan for patient's progress toward short term goals of Decreased Agitation, Decreased Aggression, emt intermediate goals to return to previous living setting vs placement. Continue to assess patient for changes in above assessment. Monitor for medication needs, pain, and safety concerns. Hourly rounding performed to ensure safe environment.
--- NOTE | 2016-10-20 22:48 | PDOC ---
Exam Blake Demential Exam: Blake Note: Please also refer to the separate dictated note~for this date of service dictated separately.~Patient seen individually. Discussed the patient with Nursing staff reviewed the chart.~Reviewed interim history and current functioning. Reviewed vital signs,~Labs/ Radiology~and current medications noted below. Continue current treatment with the changes noted in the dictated addendum note Assessment: Vital Signs: Vital Signs Date Time Temp Pulse Resp B/P (MAP) Pulse Ox O2 Delivery O2 Flow Rate FiO2 10/20/16 16:46 98.1 72 20 101/66 (78) 98 10/18/16 16:04 Room Air I&O Intake and Output 10/20/16 07:00 Intake Total 720 ml Balance 720 ml Intake Oral 720 ml Labs: Laboratory Tests Test 10/20/16 08:02 Valproic Acid Level 46 mcg/mL (50-100) L Valproic Acid Last Dose Date 10/19/16 Valproic Acid Last Dose Time 2100 Current Medications: Meds: Current Medications Acetaminophen (Tylenol) 650 mg PRN Q6HRS PRN PO PAIN / TEMP Last administered on 09/15/16 20:02; Start 09/12/16 at 19:15 Multi-Ingredient Ointment (Analgesic Pratt) 1 derek PRN QID PRN TP MUSCLE PAIN; Start 09/12/16 at 19:15 Al Hydroxide/Mg Hydroxide (Mylanta Plus Xs) 15 ml PRN AFTMEALHC PRN PO DYSPEPSIA; Start 09/12/16 at 19:15 Magnesium Hydroxide (Milk Of Magnesia) 2,400 mg PRN QHS PRN PO CONSTIPATION; Start 09/12/16 at 19:15 Divalproex Sodium (Depakote) 250 mg BID PO Last administered on 09/20/16 08:38 ; Start 09/12/16 at 21:00; Stop 09/20/16 at 10:41; Status DC Lorazepam (Ativan) 0.5 mg PRN BID PRN PO ANXIETY / AGITATION Last administered on 10/07/16 19:22; Start 09/12/16 at 19:45; Stop 10/07/16 at 20:59; Status DC Lorazepam (Ativan) 1 mg BID PO Last administered on 09/17/16 08:49; Start 02/19 at 21:00; Stop 09/17/16 at 18:05; Status DC Selegiline HCl (Emsam) 1 patch DAILY TD ; Start 09/13/16 at 09:00; Stop at 18:35; Status DC Buspirone HCl (Buspar) 7.5 mg BID PO Last administered on 09/27/16 09:12; Start 09/12/16 at 21:00; Stop 09/27/16 at 10:31; Status DC Amiodarone HCl (Cordarone) 100 mg DAILY PO Last administered on 10/20/16 10:34 ; Start 09/13/16 at 09:00 Aspirin (Children'S Aspirin) 81 mg DAILY PO Last administered on 10/20/16 10: 32; Start 09/13/16 at 09:00 Famotidine (Pepcid) 20 mg DAILY PO Last administered on 10/20/16 10:34; Start 09/13/16 at 09:00 Lisinopril (Prinivil) 5 mg DAILY PO Last administered on 10/20/16 10:33; Start 09/13/16 at 09:00 Loperamide HCl (Imodium) 2 mg PRN Q4HRS PRN PO DIARRHEA; Start 09/12/16 at 19: 45 Tamsulosin HCl (Flomax) 0.4 mg DAILY PO Last administered on 10/20/16 10:31; Start 09/13/16 at 09:00 Warfarin Sodium (Coumadin) 2.5 mg DAILY16 PO Last administered on 09/14/16 16: 05; Start 09/13/16 at 16:00; Stop 09/15/16 at 15:03; Status DC Multivitamins/ Calcium (Thera-M Plus) 1 tab DAILY PO Last administered on 10:32; Start 09/13/16 at 09:00 Warfarin Sodium (Coumadin) 2 mg DAILY16 PO Last administered on 09/14/16 16:06 ; Start 09/13/16 at 16:00; Stop 09/15/16 at 15:02; Status DC Warfarin Sodium (Coumadin Per Pharmacy) 1 each PRN DAILY PRN MC SEE COMMENTS Last administered on 10/18/16 08:19; Start 09/13/16 at 03:15 Vitamin D (Vitamin D3) 50,000 unit WEEKLY PO Last administered on 10/19/16 13: 09; Start 09/14/16 at 09:00 Selegiline HCl (Eldepryl) 5 mg DAILY PO Last administered on 10/07/16 09:39; Start 09/14/16 at 09:00; Stop 10/07/16 at 20:59; Status DC Trazodone HCl (Desyrel) 50 mg PRN QHS PRN PO INSOMNIA, MAY REPEAT X1 Last administered on 10/08/16 23:18; Start 09/14/16 at 19:15 Nystatin (Nystop) 1 derek BID TP Last administered on 10/20/16 19:54; Start at 09:00 Nystatin (Nystop) 30 derek STK-MED ONCE TP Last administered on 09/14/16 21:27; Start 09/14/16 at 21:27; Stop 09/14/16 at 21:28; Status DC Warfarin Sodium (Coumadin) 3 mg 1X WARF ONCE PO Last administered on 15:48; Start 09/15/16 at 16:00; Stop 09/15/16 at 16:01; Status DC Warfarin Sodium (Coumadin) 2.5 mg 1X ONCE PO Last administered on 09/15/16 15 :47; Start 09/15/16 at 15:15; Stop 09/15/16 at 15:17; Status DC Warfarin Sodium (Coumadin) 5 mg 1X WARF ONCE PO Last administered on 18:16; Start 09/16/16 at 16:00; Stop 09/16/16 at 16:01; Status DC Warfarin Sodium (Coumadin) 2 mg 1X WARF ONCE PO Last administered on 16:02; Start 09/17/16 at 16:00; Stop 09/17/16 at 16:01; Status DC Warfarin Sodium (Coumadin) 2.5 mg 1X WARF ONCE PO Last administered on 16:03; Start 09/17/16 at 16:00; Stop 09/17/16 at 16:01; Status DC Lorazepam (Ativan) 0.5 mg TID PO Last administered on 09/20/16 20:45; Start at 21:00; Stop 09/20/16 at 21:00; Status DC Lorazepam (Ativan) 0.5 mg BID PO Last administered on 09/24/16 19:38; Start at 09:00; Stop 09/24/16 at 21:01; Status DC Lorazepam (Ativan) 0.5 mg DAILY PO Last administered on 09/27/16 09:15; Start 09/25/16 at 09:00; Stop 09/27/16 at 10:39; Status DC Warfarin Sodium (Coumadin) 2.5 mg 1X WARF ONCE PO Last administered on 14:58; Start 09/18/16 at 16:00; Stop 09/18/16 at 16:01; Status DC Warfarin Sodium (Coumadin) 2 mg 1X WARF ONCE PO Last administered on 14:59; Start 09/18/16 at 16:00; Stop 09/18/16 at 16:01; Status DC Sertraline HCl (Zoloft) 25 mg DAILY PO Last administered on 09/24/16 07:43; Start 09/19/16 at 09:00; Stop 09/24/16 at 18:00; Status DC Warfarin Sodium (Coumadin - No Dose Today) 1 each 1X WARF ONCE MC Last administered on 09/19/16 14:14; Start 09/19/16 at 16:00; Stop 09/19/16 at 16:02 ; Status DC Quetiapine Fumarate (SEROquel) 25 mg QHS PO Last administered on 10/03/16 19: 12; Start 09/20/16 at 21:00; Stop 10/04/16 at 10:51; Status DC Warfarin Sodium (Coumadin) 2.5 mg 1X WARF ONCE PO Last administered on 16:31; Start 09/20/16 at 16:00; Stop 09/20/16 at 16:01; Status DC Valproic Acid (Depakene) 250 mg BID PO Last administered on 09/25/16 09:29; Start 09/20/16 at 21:00; Stop 09/25/16 at 18:06; Status DC Warfarin Sodium (Coumadin) 2.5 mg 1X WARF ONCE PO Last administered on 16:02; Start 09/21/16 at 16:00; Stop 09/21/16 at 16:01; Status DC Warfarin Sodium (Coumadin) 1 mg 1X WARF ONCE PO Last administered on 16:02; Start 09/21/16 at 16:00; Stop 09/21/16 at 16:01; Status DC Mirtazapine (Remeron) 7.5 mg QHS PO Last administered on 09/26/16 19:21; Start 09/21/16 at 21:00; Stop 09/27/16 at 10:31; Status DC Warfarin Sodium (Coumadin) 4 mg 1X WARF ONCE PO Last administered on 16:31; Start 09/22/16 at 16:00; Stop 09/22/16 at 16:01; Status DC Warfarin Sodium (Coumadin) 4 mg 1X WARF ONCE PO Last administered on 15:42; Start 09/23/16 at 16:00; Stop 09/23/16 at 16:01; Status DC Warfarin Sodium (Coumadin) 4 mg DAILY16 PO Last administered on 09/25/16 16:00 ; Start 09/24/16 at 16:00; Stop 09/26/16 at 08:25; Status DC Sertraline HCl (Zoloft) 50 mg DAILY PO Last administered on 10/03/16 08:52; Start 09/25/16 at 09:00; Stop 10/03/16 at 14:04; Status DC Valproic Acid (Depakene) 375 mg BID PO Last administered on 10/03/16 08:53; Start 09/25/16 at 21:00; Stop 10/03/16 at 18:33; Status DC Warfarin Sodium (Coumadin) 2 mg DAILY16 PO Last administered on 10/08/16 16:21 ; Start 09/26/16 at 16:00; Stop 10/08/16 at 16:53; Status DC Warfarin Sodium (Coumadin) 2.5 mg DAILY16 PO Last administered on 10/08/16 16: 21; Start 09/26/16 at 16:00; Stop 10/08/16 at 16:53; Status DC Quetiapine Fumarate (SEROquel) 12.5 mg BID92 PO Last administered on 09/30/16 13:36; Start 09/27/16 at 09:00; Stop 09/30/16 at 22:00; Status DC Buspirone HCl (Buspar) 10 mg TID PO Last administered on 10/20/16 19:30; Start 09/27/16 at 14:00 Mirtazapine (Remeron) 15 mg QHS PO Last administered on 10/20/16 19:30; Start 09/27/16 at 21:00 Lorazepam (Ativan) 0.5 mg DAILY PO Last administered on 10/17/16 07:51; Start 09/28/16 at 09:00; Stop 10/17/16 at 17:00; Status DC Quetiapine Fumarate (SEROquel) 12.5 mg 0900,1400,1700 PO Last administered on 08:52; Start 10/01/16 at 09:00; Stop 10/03/16 at 14:04; Status DC Olanzapine (ZyPREXA ZYDIS) 2.5 mg PRN Q2HR PRN PO PSYCHOSIS Last administered on 10/03/16 11:54; Start 10/03/16 at 10:00 Quetiapine Fumarate (SEROquel) 25 mg 0900,1400,1700 PO Last administered on 10/04 10:01; Start 10/03/16 at 17:00; Stop 10/04/16 at 10:51; Status DC Hydroxyzine HCl (Atarax) 50 mg PRN Q2HR PRN PO ANXIETY / AGITATION Last administered on 10/06/16 11:50; Start 10/03/16 at 14:15 Valproic Acid (Depakene) 500 mg BID PO Last administered on 10/20/16 19:30; Start 10/03/16 at 21:00 Risperidone (RisperDAL) 0.25 mg BID PO Last administered on 10/09/16 09:01; Start 10/04/16 at 21:00; Stop 10/09/16 at 18:21; Status DC Levothyroxine Sodium (Synthroid) 12.5 mcg DAILY06 PO Last administered on 06:25; Start 10/07/16 at 06:00 Lorazepam (Ativan) 0.25 mg PRN Q2HR PRN PO ANXIETY / AGITATION Last administered on 10/10/16 05:05; Start 10/07/16 at 21:15 Risperidone (RisperDAL) 0.375 mg DAILY PO Last administered on 10/20/16 10:32 ; Start 10/10/16 at 09:00 Risperidone (RisperDAL) 0.25 mg QHS PO Last administered on 10/20/16 19:30; Start 10/09/16 at 21:00 Warfarin Sodium (Coumadin - No Dose Today) 1 each 1X WARF ONCE MC Last administered on 10/10/16 14:23; Start 10/10/16 at 16:00; Stop 10/10/16 at 16:01; Status DC Haloperidol Lactate (Haldol) 5 mg DAILY IM Last administered on 10/12/16 08:42 ; Start 10/10/16 at 08:00; Stop 10/12/16 at 18:58; Status DC Lorazepam (Ativan) 0.5 mg DAILY IM Last administered on 10/12/16 08:43; Start 10/10/16 at 08:00; Stop 10/12/16 at 18:43; Status DC Warfarin Sodium (Coumadin) 4 mg DAILY16 PO Last administered on 10/14/16 16:00 ; Start 10/11/16 at 16:00; Stop 10/15/16 at 09:01; Status DC Fluvoxamine Maleate (Luvox) 25 mg HS PO Last administered on 10/14/16 19:23; Start 10/11/16 at 21:00; Stop 10/15/16 at 17:44; Status DC Haloperidol (Haldol) 2.5 mg DAILY PO Last administered on 10/15/16 08:47; Start 10/13/16 at 09:00; Stop 10/15/16 at 19:00; Status DC Warfarin Sodium (Coumadin) 2.5 mg 1X WARF ONCE PO Last administered on 16:22; Start 10/15/16 at 16:00; Stop 10/15/16 at 16:01; Status DC Warfarin Sodium (Coumadin) 2 mg 1X WARF ONCE PO Last administered on 16:22; Start 10/15/16 at 16:00; Stop 10/15/16 at 16:01; Status DC Fluvoxamine Maleate (Luvox) 50 mg HS PO Last administered on 10/20/16 19:30; Start 10/15/16 at 21:00 Warfarin Sodium (Coumadin) 4 mg 1X WARF ONCE PO Last administered on 15:34; Start 10/16/16 at 16:00; Stop 10/16/16 at 16:01; Status DC Warfarin Sodium (Coumadin) 2.5 mg 1X WARF ONCE PO Last administered on 14:42; Start 10/17/16 at 16:00; Stop 10/17/16 at 16:01; Status DC Warfarin Sodium (Coumadin) 2 mg 1X WARF ONCE PO Last administered on 14:42; Start 10/17/16 at 16:00; Stop 10/17/16 at 16:01; Status DC Warfarin Sodium (Coumadin) 4 mg Q48H ONCE PO ; Start 10/18/16 at 16:00; Stop at 16:00; Status DC Warfarin Sodium (Coumadin) 2 mg Q48H ONCE PO ; Start 10/19/16 at 16:00; Stop at 16:00; Status DC Warfarin Sodium (Coumadin) 2.5 mg Q48H ONCE PO ; Start 10/19/16 at 16:00; Stop 10/19/16 at 16:00; Status DC Warfarin Sodium (Coumadin) 4 mg Q48H PO Last administered on 10/20/16 16:54; Start 10/18/16 at 16:00 Warfarin Sodium (Coumadin) 2 mg Q48H PO Last administered on 10/19/16 16:20; Start 10/19/16 at 16:00 Warfarin Sodium (Coumadin) 2.5 mg Q48H PO Last administered on 10/19/16 16:20 ; Start 10/19/16 at 16:00 Ferrous Sulfate (Feosol) 325 mg DAILYWBKFT PO Last administered on 10/20/16 10 :32; Start 10/19/16 at 08:00 Haloperidol (Haldol) 5 mg 1X PO Last administered on 10/19/16 09:38; Start at 09:45 Lorazepam (Ativan) 0.5 mg DAILY IM Last administered on 10/20/16 10:36; Start 10/19/16 at 09:00; Stop 10/20/16 at 19:46; Status DC Haloperidol Lactate (Haldol) 5 mg DAILY IM Last administered on 10/20/16t 10:35 ; Start 10/19/16 at 09:00; Stop 10/20/16 at 19:46; Status DC Haloperidol (Haldol) 5 mg DAILY PO ; Start 10/21/16 at 09:00 Active Scripts Active Reported Trazodone Hcl 50 Mg Tablet 50 Mg PO PRN QHS PRN Risperdal (Risperidone) 0.25 Mg Tablet 0.25 Mg PO QHS Risperdal (Risperidone) 0.25 Mg Tablet 0.375 Mg PO DAILY Hydroxyzine Hcl 50 Mg Tablet 50 Mg PO PRN Q2HR PRN Fluvoxamine Maleate 50 Mg Tablet 50 Mg PO QHS Buspirone Hcl 10 Mg Tablet 10 Mg PO TID Coumadin (Warfarin Sodium) 2.5 Mg Tablet 2.5 Mg PO Coumadin (Warfarin Sodium) 2 Mg Tablet 2 Mg PO Depakene (Valproate Sodium) 250 Mg/5 Ml Solution 500 Mg PO BID Zyprexa Zydis (Olanzapine) 5 Mg Tab.rapdis 2.5 Mg PO PRN Q2HR PRN Nystatin 15 Gm Powder 1 Derek TP BID Mirtazapine 15 Mg Tablet 15 Mg PO QHS Analgesic Pratt (Methyl Salicylate/Menthol) 28 Gm Oint...g. 1 Derek TP PRN QID PRN Milk Of Magnesia (Magnesium Hydroxide) 400 Mg/5 Ml Oral.susp 2,400 Mg PO PRN QHS PRN Mag-Al Plus Xs Suspension (Mag Hydrox/Al Hydrox/Simeth) 30 Ml Oral.susp 15 Ml PO PRN AFTMEALHC PRN Levothyroxine Sodium 25 Mcg Tablet 12.5 Mcg PO DAILY06 Ferrous Sulfate 325 Mg Tablet 325 Mg PO DAILYWBKFT D3-50 (Cholecalciferol (Vitamin D3)) 50,000 Unit Capsule 50,000 Unit PO WEEKLY Tylenol (Acetaminophen) 325 Mg Tablet 650 Mg PO PRN Q6HRS PRN Therems-M (Multivits, W-Fe,Other Min) 1 Each Tablet 1 Each PO DAILY Tamsulosin Hcl 0.4 Mg Cap.er.24h 0.4 Mg PO DAILY Lisinopril 5 Mg Tablet 5 Mg PO DAILY Famotidine 20 Mg Tablet 20 Mg PO DAILY Emsam (Selegiline) 1 Each Patch.td24 1 Each TD DAILY Aspirin 81 Mg Tab.chew 81 Mg PO DAILY Amiodarone Hcl 200 Mg Tablet 100 Mg PO DAILY Depakote (Divalproex Sodium) 250 Mg Tablet.dr 250 Mg PO BID Coumadin (Warfarin Sodium) 4 Mg Tablet 4.5 Mg PO DAILY Ativan (Lorazepam) 0.5 Mg Tablet 0.5 Mg PO PRN BID PRN Imodium A-D (Loperamide HCl) 2 Mg Capsule 2 Mg PO PRN PRN MDD 12 mg Ativan (Lorazepam) 1 Mg Tablet 1 Mg PO BID Buspirone Hcl 7.5 Mg Tablet 7.5 Mg PO BID Diagnosis: Problems: (1) Dementia (2) Anxiety disorder (3) Impulse control disorder (4) Dementia, vascular, with depression (5) Dementia, vascular, with delusions (6) Dementia in Alzheimer's disease with depression (7) Dementia in Alzheimer's disease with delusions LINDSAY BROWN MD Oct 20, 2016 22:48
[2016-10-21] MEDS: traZODone 50 MG TABLET. PO PRN (01:21)
--- NOTE | 2016-10-21 01:40 | NUR ---
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 At this time pt again up ambulating in the choe very anxious stating he needs to go check on the cattle, Multiple staff attempted to redirect, Pt continues escalate becoming very agitated and demanding to be let out so he can go check on the cattle. PRN Zydis administered hidden in a snack at this time
[2016-10-21] MEDS: NYSTATIN TOPICAL POWDER 30GM BOTTLE. TP SCH ×2 (09:00→19:43)
[2016-10-21] MEDS ORDERED: HALOPERIDOL 0.5 MG TABLET PO SCH (09:00)
[2016-10-21] MEDS: FERROUS SULFATE 325 MG TABLET PO SCH (09:39)
[2016-10-21] MEDS: ASPIRIN 81 MG TAB.CHEW PO SCH (09:39)
[2016-10-21] MEDS: TAMSULOSIN 0.4 MG CAP.ER.24H. PO SCH (09:39)
[2016-10-21] MEDS: LISINOPRIL 5 MG TABLET. PO SCH (09:39)
[2016-10-21] MEDS: FAMOTIDINE 20 MG TABLET PO SCH (09:39)
[2016-10-21] MEDS: LEVOTHYROXINE 25 MCG TABLET. PO SCH (09:39)
[2016-10-21] MEDS: VALPROATE ACID 250 MG/5 ML ORAL SOLUTION PO SCH ×2 (09:39→19:36)
[2016-10-21] MEDS: busPIRone 10 MG TABLET. PO SCH ×3 (09:39→19:37)
[2016-10-21] MEDS: risperiDONE 0.25 MG TABLET. PO SCH ×2 (09:39→19:37)
[2016-10-21] MEDS: MULTIVITAMIN with MINERAL TABLET. PO SCH (09:39)
[2016-10-21] MEDS: AMIODARONE HCL 200 MG TABLET PO SCH (09:40)
--- NOTE | 2016-10-21 10:04 | NUR ---
Behavior Intervention Response and Plan: BIRP Note: Behavior: Assumed Care of patient, patient located in Dining Room at shift change. Patient exhibited the following behavior Calm, Cooperative, Compliant. Brief assessment on rounds of vital signs, medication needs, lab studies, and pain. Treatment plan problems . Intervention: Patient assessed and the following interventions initiated safety checks 15 Minute Checks Cognitive Assessment , Head to toe Assessment , Medications. Response: After interactions and interventions patient responded in the following manner, Calm , Cooperative ,Compliant. Continue to assess behaviors and condition will continue to monitor throughout the shift as needed. 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 Continue to assess patient for changes in above assessment. Monitor for medication needs, pain, and safety concerns. Hourly rounding performed to ensure safe environment.
[2016-10-21] MEDS: WARFARIN 2 MG TABLET. PO SCH (13:25)
[2016-10-21] MEDS: WARFARIN 2.5 MG TABLET. PO SCH (13:25)
[2016-10-21] MEDS: LORazepam 0.5 MG TABLET PO PRN (13:25)
[2016-10-21 16:39] VITALS: BP 146/92
[2016-10-21] MEDS: MIRTAZAPINE 15 MG TABLET PO SCH (19:37)
--- NOTE | 2016-10-21 21:25 | PDOC ---
Exam Blake Demential Exam: Blake Note: Please also refer to the separate dictated note~for this date of service dictated separately.~Patient seen individually. Discussed the patient with Nursing staff reviewed the chart.~Reviewed interim history and current functioning. Reviewed vital signs,~Labs/ Radiology~and current medications noted below. Continue current treatment with the changes noted in the dictated addendum note Assessment: Vital Signs: Vital Signs Date Time Temp Pulse Resp B/P (MAP) Pulse Ox O2 Delivery O2 Flow Rate FiO2 10/21/16 16:39 98.4 79 18 146/92 (110) 94 Room Air I&O Intake and Output 10/21/16 07:00 Intake Total 1560 ml Balance 1560 ml Intake Oral 1560 ml Current Medications: Meds: Current Medications Acetaminophen (Tylenol) 650 mg PRN Q6HRS PRN PO PAIN / TEMP Last administered on 09/15/16 20:02; Start 09/12/16 at 19:15 Multi-Ingredient Ointment (Analgesic [place]) 1 derek PRN QID PRN TP MUSCLE PAIN; Start 09/12/16 at 19:15 Al Hydroxide/Mg Hydroxide (Mylanta Plus Xs) 15 ml PRN AFTMEALHC PRN PO DYSPEPSIA; Start 09/12/16 at 19:15 Magnesium Hydroxide (Milk Of Magnesia) 2,400 mg PRN QHS PRN PO CONSTIPATION; Start 09/12/16 at 19:15 Divalproex Sodium (Depakote) 250 mg BID PO Last administered on 09/20/16 08:38 ; Start 09/12/16 at 21:00; Stop 09/20/16 at 10:41; Status DC Lorazepam (Ativan) 0.5 mg PRN BID PRN PO ANXIETY / AGITATION Last administered on 10/07/16 19:22; Start 09/12/16 at 19:45; Stop 10/07/16 at 20:59; Status DC Lorazepam (Ativan) 1 mg BID PO Last administered on 09/17/16 08:49; Start 02/19 at 21:00; Stop 09/17/16 at 18:05; Status DC Selegiline HCl (Emsam) 1 patch DAILY TD ; Start 09/13/16 at 09:00; Stop at 18:35; Status DC Buspirone HCl (Buspar) 7.5 mg BID PO Last administered on 09/27/16 09:12; Start 09/12/16 at 21:00; Stop 09/27/16 at 10:31; Status DC Amiodarone HCl (Cordarone) 100 mg DAILY PO Last administered on 10/21/16 09:40 ; Start 09/13/16 at 09:00 Aspirin (Children'S Aspirin) 81 mg DAILY PO Last administered on 10/21/16 09: 39; Start 09/13/16 at 09:00 Famotidine (Pepcid) 20 mg DAILY PO Last administered on 10/21/16 09:39; Start 09/13/16 at 09:00 Lisinopril (Prinivil) 5 mg DAILY PO Last administered on 10/21/16 09:39; Start 09/13/16 at 09:00 Loperamide HCl (Imodium) 2 mg PRN Q4HRS PRN PO DIARRHEA; Start 09/12/16 at 19: 45 Tamsulosin HCl (Flomax) 0.4 mg DAILY PO Last administered on 10/21/16 09:39; Start 09/13/16 at 09:00 Warfarin Sodium (Coumadin) 2.5 mg DAILY16 PO Last administered on 09/14/16 16: 05; Start 09/13/16 at 16:00; Stop 09/15/16 at 15:03; Status DC Multivitamins/ Calcium (Thera-M Plus) 1 tab DAILY PO Last administered on 09:39; Start 09/13/16 at 09:00 Warfarin Sodium (Coumadin) 2 mg DAILY16 PO Last administered on 09/14/16 16:06 ; Start 09/13/16 at 16:00; Stop 09/15/16 at 15:02; Status DC Warfarin Sodium (Coumadin Per Pharmacy) 1 each PRN DAILY PRN MC SEE COMMENTS Last administered on 10/18/16 08:19; Start 09/13/16 at 03:15 Vitamin D (Vitamin D3) 50,000 unit WEEKLY PO Last administered on 10/19/16 13: 09; Start 09/14/16 at 09:00 Selegiline HCl (Eldepryl) 5 mg DAILY PO Last administered on 10/07/16 09:39; Start 09/14/16 at 09:00; Stop 10/07/16 at 20:59; Status DC Trazodone HCl (Desyrel) 50 mg PRN QHS PRN PO INSOMNIA, MAY REPEAT X1 Last administered on 10/08/16 23:18; Start 09/14/16 at 19:15 Nystatin (Nystop) 1 derek BID TP Last administered on 10/21/16 19:43; Start at 09:00 Nystatin (Nystop) 30 derek STK-MED ONCE TP Last administered on 09/14/16 21:27; Start 09/14/16 at 21:27; Stop 09/14/16 at 21:28; Status DC Warfarin Sodium (Coumadin) 3 mg 1X WARF ONCE PO Last administered on 15:48; Start 09/15/16 at 16:00; Stop 09/15/16 at 16:01; Status DC Warfarin Sodium (Coumadin) 2.5 mg 1X ONCE PO Last administered on 09/15/16 15 :47; Start 09/15/16 at 15:15; Stop 09/15/16 at 15:17; Status DC Warfarin Sodium (Coumadin) 5 mg 1X WARF ONCE PO Last administered on 18:16; Start 09/16/16 at 16:00; Stop 09/16/16 at 16:01; Status DC Warfarin Sodium (Coumadin) 2 mg 1X WARF ONCE PO Last administered on 16:02; Start 09/17/16 at 16:00; Stop 09/17/16 at 16:01; Status DC Warfarin Sodium (Coumadin) 2.5 mg 1X WARF ONCE PO Last administered on 16:03; Start 09/17/16 at 16:00; Stop 09/17/16 at 16:01; Status DC Lorazepam (Ativan) 0.5 mg TID PO Last administered on 09/20/16 20:45; Start at 21:00; Stop 09/20/16 at 21:00; Status DC Lorazepam (Ativan) 0.5 mg BID PO Last administered on 09/24/16 19:38; Start at 09:00; Stop 09/24/16 at 21:01; Status DC Lorazepam (Ativan) 0.5 mg DAILY PO Last administered on 09/27/16 09:15; Start 09/25/16 at 09:00; Stop 09/27/16 at 10:39; Status DC Warfarin Sodium (Coumadin) 2.5 mg 1X WARF ONCE PO Last administered on 14:58; Start 09/18/16 at 16:00; Stop 09/18/16 at 16:01; Status DC Warfarin Sodium (Coumadin) 2 mg 1X WARF ONCE PO Last administered on 14:59; Start 09/18/16 at 16:00; Stop 09/18/16 at 16:01; Status DC Sertraline HCl (Zoloft) 25 mg DAILY PO Last administered on 09/24/16 07:43; Start 09/19/16 at 09:00; Stop 09/24/16 at 18:00; Status DC Warfarin Sodium (Coumadin - No Dose Today) 1 each 1X WARF ONCE MC Last administered on 09/19/16 14:14; Start 09/19/16 at 16:00; Stop 09/19/16 at 16:02 ; Status DC Quetiapine Fumarate (SEROquel) 25 mg QHS PO Last administered on 10/03/16 19: 12; Start 09/20/16 at 21:00; Stop 10/04/16 at 10:51; Status DC Warfarin Sodium (Coumadin) 2.5 mg 1X WARF ONCE PO Last administered on 16:31; Start 09/20/16 at 16:00; Stop 09/20/16 at 16:01; Status DC Valproic Acid (Depakene) 250 mg BID PO Last administered on 09/25/16 09:29; Start 09/20/16 at 21:00; Stop 09/25/16 at 18:06; Status DC Warfarin Sodium (Coumadin) 2.5 mg 1X WARF ONCE PO Last administered on 16:02; Start 09/21/16 at 16:00; Stop 09/21/16 at 16:01; Status DC Warfarin Sodium (Coumadin) 1 mg 1X WARF ONCE PO Last administered on 16:02; Start 09/21/16 at 16:00; Stop 09/21/16 at 16:01; Status DC Mirtazapine (Remeron) 7.5 mg QHS PO Last administered on 09/26/16 19:21; Start 09/21/16 at 21:00; Stop 09/27/16 at 10:31; Status DC Warfarin Sodium (Coumadin) 4 mg 1X WARF ONCE PO Last administered on 16:31; Start 09/22/16 at 16:00; Stop 09/22/16 at 16:01; Status DC Warfarin Sodium (Coumadin) 4 mg 1X WARF ONCE PO Last administered on 15:42; Start 09/23/16 at 16:00; Stop 09/23/16 at 16:01; Status DC Warfarin Sodium (Coumadin) 4 mg DAILY16 PO Last administered on 09/25/16 16:00 ; Start 09/24/16 at 16:00; Stop 09/26/16 at 08:25; Status DC Sertraline HCl (Zoloft) 50 mg DAILY PO Last administered on 10/03/16 08:52; Start 09/25/16 at 09:00; Stop 10/03/16 at 14:04; Status DC Valproic Acid (Depakene) 375 mg BID PO Last administered on 10/03/16 08:53; Start 09/25/16 at 21:00; Stop 10/03/16 at 18:33; Status DC Warfarin Sodium (Coumadin) 2 mg DAILY16 PO Last administered on 10/08/16 16:21 ; Start 09/26/16 at 16:00; Stop 10/08/16 at 16:53; Status DC Warfarin Sodium (Coumadin) 2.5 mg DAILY16 PO Last administered on 10/08/16 16: 21; Start 09/26/16 at 16:00; Stop 10/08/16 at 16:53; Status DC Quetiapine Fumarate (SEROquel) 12.5 mg BID92 PO Last administered on 09/30/16 13:36; Start 09/27/16 at 09:00; Stop 09/30/16 at 22:00; Status DC Buspirone HCl (Buspar) 10 mg TID PO Last administered on 10/21/16 19:37; Start 09/27/16 at 14:00 Mirtazapine (Remeron) 15 mg QHS PO Last administered on 10/21/16 19:37; Start 09/27/16 at 21:00 Lorazepam (Ativan) 0.5 mg DAILY PO Last administered on 10/17/16 07:51; Start 09/28/16 at 09:00; Stop 10/17/16 at 17:00; Status DC Quetiapine Fumarate (SEROquel) 12.5 mg 0900,1400,1700 PO Last administered on 08:52; Start 10/01/16 at 09:00; Stop 10/03/16 at 14:04; Status DC Olanzapine (ZyPREXA ZYDIS) 2.5 mg PRN Q2HR PRN PO PSYCHOSIS Last administered on 10/21/16 01:39; Start 10/03/16 at 10:00 Quetiapine Fumarate (SEROquel) 25 mg 0900,1400,1700 PO Last administered on 10/04 10:01; Start 10/03/16 at 17:00; Stop 10/04/16 at 10:51; Status DC Hydroxyzine HCl (Atarax) 50 mg PRN Q2HR PRN PO ANXIETY / AGITATION Last administered on 10/06/16 11:50; Start 10/03/16 at 14:15 Valproic Acid (Depakene) 500 mg BID PO Last administered on 10/21/16 19:36; Start 10/03/16 at 21:00 Risperidone (RisperDAL) 0.25 mg BID PO Last administered on 10/09/16 09:01; Start 10/04/16 at 21:00; Stop 10/09/16 at 18:21; Status DC Levothyroxine Sodium (Synthroid) 12.5 mcg DAILY06 PO Last administered on 09:39; Start 10/07/16 at 06:00 Lorazepam (Ativan) 0.25 mg PRN Q2HR PRN PO ANXIETY / AGITATION Last administered on 10/21/16 13:25; Start 10/07/16 at 21:15 Risperidone (RisperDAL) 0.375 mg DAILY PO Last administered on 10/21/16 09:39 ; Start 10/10/16 at 09:00 Risperidone (RisperDAL) 0.25 mg QHS PO Last administered on 10/21/16 19:37; Start 10/09/16 at 21:00 Warfarin Sodium (Coumadin - No Dose Today) 1 each 1X WARF ONCE MC Last administered on 10/10/16 14:23; Start 10/10/16 at 16:00; Stop 10/10/16 at 16:01; Status DC Haloperidol Lactate (Haldol) 5 mg DAILY IM Last administered on 10/12/16 08:42 ; Start 10/10/16 at 08:00; Stop 10/12/16 at 18:58; Status DC Lorazepam (Ativan) 0.5 mg DAILY IM Last administered on 10/12/16 08:43; Start 10/10/16 at 08:00; Stop 10/12/16 at 18:43; Status DC Warfarin Sodium (Coumadin) 4 mg DAILY16 PO Last administered on 10/14/16 16:00 ; Start 10/11/16 at 16:00; Stop 10/15/16 at 09:01; Status DC Fluvoxamine Maleate (Luvox) 25 mg HS PO Last administered on 10/14/16 19:23; Start 10/11/16 at 21:00; Stop 10/15/16 at 17:44; Status DC Haloperidol (Haldol) 2.5 mg DAILY PO Last administered on 10/15/16 08:47; Start 10/13/16 at 09:00; Stop 10/15/16 at 19:00; Status DC Warfarin Sodium (Coumadin) 2.5 mg 1X WARF ONCE PO Last administered on 16:22; Start 10/15/16 at 16:00; Stop 10/15/16 at 16:01; Status DC Warfarin Sodium (Coumadin) 2 mg 1X WARF ONCE PO Last administered on 16:22; Start 10/15/16 at 16:00; Stop 10/15/16 at 16:01; Status DC Fluvoxamine Maleate (Luvox) 50 mg HS PO Last administered on 10/21/16 19:37; Start 10/15/16 at 21:00 Warfarin Sodium (Coumadin) 4 mg 1X WARF ONCE PO Last administered on 15:34; Start 10/16/16 at 16:00; Stop 10/16/16 at 16:01; Status DC Warfarin Sodium (Coumadin) 2.5 mg 1X WARF ONCE PO Last administered on 14:42; Start 10/17/16 at 16:00; Stop 10/17/16 at 16:01; Status DC Warfarin Sodium (Coumadin) 2 mg 1X WARF ONCE PO Last administered on 14:42; Start 10/17/16 at 16:00; Stop 10/17/16 at 16:01; Status DC Warfarin Sodium (Coumadin) 4 mg Q48H ONCE PO ; Start 10/18/16 at 16:00; Stop at 16:00; Status DC Warfarin Sodium (Coumadin) 2 mg Q48H ONCE PO ; Start 10/19/16 at 16:00; Stop at 16:00; Status DC Warfarin Sodium (Coumadin) 2.5 mg Q48H ONCE PO ; Start 10/19/16 at 16:00; Stop 10/19/16 at 16:00; Status DC Warfarin Sodium (Coumadin) 4 mg Q48H PO Last administered on 10/20/16 16:54; Start 10/18/16 at 16:00 Warfarin Sodium (Coumadin) 2 mg Q48H PO Last administered on 10/21/16 13:25; Start 10/19/16 at 16:00 Warfarin Sodium (Coumadin) 2.5 mg Q48H PO Last administered on 10/21/16 13:25 ; Start 10/19/16 at 16:00 Ferrous Sulfate (Feosol) 325 mg DAILYWBKFT PO Last administered on 10/21/16 09 :39; Start 10/19/16 at 08:00 Haloperidol (Haldol) 5 mg 1X PO Last administered on 10/19/16 09:38; Start at 09:45 Lorazepam (Ativan) 0.5 mg DAILY IM Last administered on 10/20/16 10:36; Start 10/19/16 at 09:00; Stop 10/20/16 at 19:46; Status DC Haloperidol Lactate (Haldol) 5 mg DAILY IM Last administered on 10/20/16 10:35 ; Start 10/19/16 at 09:00; Stop 10/20/16 at 19:46; Status DC Haloperidol (Haldol) 5 mg DAILY PO Last administered on 10/21/16t 09:00; Start 10/21/16 at 09:00 Active Scripts Active Reported Trazodone Hcl 50 Mg Tablet 50 Mg PO PRN QHS PRN Risperdal (Risperidone) 0.25 Mg Tablet 0.25 Mg PO QHS Risperdal (Risperidone) 0.25 Mg Tablet 0.375 Mg PO DAILY Hydroxyzine Hcl 50 Mg Tablet 50 Mg PO PRN Q2HR PRN Fluvoxamine Maleate 50 Mg Tablet 50 Mg PO QHS Buspirone Hcl 10 Mg Tablet 10 Mg PO TID Coumadin (Warfarin Sodium) 2.5 Mg Tablet 2.5 Mg PO Coumadin (Warfarin Sodium) 2 Mg Tablet 2 Mg PO Depakene (Valproate Sodium) 250 Mg/5 Ml Solution 500 Mg PO BID Zyprexa Zydis (Olanzapine) 5 Mg Tab.rapdis 2.5 Mg PO PRN Q2HR PRN Nystatin 15 Gm Powder 1 Derek TP BID Mirtazapine 15 Mg Tablet 15 Mg PO QHS Analgesic [place] (Methyl Salicylate/Menthol) 28 Gm Oint...g. 1 Derek TP PRN QID PRN Milk Of Magnesia (Magnesium Hydroxide) 400 Mg/5 Ml Oral.susp 2,400 Mg PO PRN QHS PRN Mag-Al Plus Xs Suspension (Mag Hydrox/Al Hydrox/Simeth) 30 Ml Oral.susp 15 Ml PO PRN AFTMEALHC PRN Levothyroxine Sodium 25 Mcg Tablet 12.5 Mcg PO DAILY06 Ferrous Sulfate 325 Mg Tablet 325 Mg PO DAILYWBKFT D3-50 (Cholecalciferol (Vitamin D3)) 50,000 Unit Capsule 50,000 Unit PO WEEKLY Tylenol (Acetaminophen) 325 Mg Tablet 650 Mg PO PRN Q6HRS PRN Therems-M (Multivits,Th W-Fe,Other Min) 1 Each Tablet 1 Each PO DAILY Tamsulosin Hcl 0.4 Mg Cap.er.24h 0.4 Mg PO DAILY Lisinopril 5 Mg Tablet 5 Mg PO DAILY Famotidine 20 Mg Tablet 20 Mg PO DAILY Emsam (Selegiline) 1 Each Patch.td24 1 Each TD DAILY Aspirin 81 Mg Tab.chew 81 Mg PO DAILY Amiodarone Hcl 200 Mg Tablet 100 Mg PO DAILY Depakote (Divalproex Sodium) 250 Mg Tablet.dr 250 Mg PO BID Coumadin (Warfarin Sodium) 4 Mg Tablet 4.5 Mg PO DAILY Ativan (Lorazepam) 0.5 Mg Tablet 0.5 Mg PO PRN BID PRN Imodium A-D (Loperamide HCl) 2 Mg Capsule 2 Mg PO PRN PRN MDD 12 mg Ativan (Lorazepam) 1 Mg Tablet 1 Mg PO BID Buspirone Hcl 7.5 Mg Tablet 7.5 Mg PO BID Diagnosis: Problems: (1) Dementia (2) Encounter for medical screening examination (3) Anxiety disorder (4) Impulse control disorder (5) Dementia, vascular, with depression (6) Dementia, vascular, with delusions (7) Dementia in Alzheimer's disease with depression (8) Dementia in Alzheimer's disease with delusions LINDSAY BROWN MD Oct 21, 2016 21:25
--- NOTE | 2016-10-21 23:01 | NUR ---
Behavior Intervention Response and Plan: BIRP Note: Behavior: Assumed Care of patient, patient located in Day Room at shift change. Patient exhibited the following behavior Calm, Compliant, Cooperative. Brief assessment on rounds of vital signs, medication needs, lab studies, and pain. Treatment plan problems Danger to Others and Fall Risk. Intervention: Patient assessed and the following interventions initiated safety checks 15 Minute Checks Cognitive Assessment , Head to toe Assessment , Medications. Response: After interactions and interventions patient responded in the following manner, Wandering , Calm ,Compliant. Continue to assess behaviors and condition will continue to monitor throughout the shift as needed. 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 Continue to assess patient for changes in above assessment. Monitor for medication needs, pain, and safety concerns. Hourly rounding performed to ensure safe environment.
--- NOTE | 2016-10-22 01:13 | PN ---
DATE: 10/20/2016 PSYCHIATRIC PROGRESS NOTE This is a late entry of 10/20/2016 covers elements not covered in my initial note. SUBJECTIVE: The patient has had a better day, less labile, less psychotic, less aggressive, all of which improved with the reinitiation of IM Haldol and Ativan. No CV, , pulmonary, eye system symptoms on review. He is pleasant, smiling. Reliability poor. MENTAL STATUS EXAM: Oriented to himself. Insight, judgment, recent and remote memory, attention, concentration, fund of knowledge poor, consistent with his diagnosis, remote memory better than recent. LABORATORY DATA: Reviewed. IMPRESSION: Unchanged from initial note. PLAN: Stop IM Haldol, Ativan, changed to Haldol 5 mg p.o. daily. Maintain Depakote, BuSpar, Ativan p.r.n., trazodone, Risperdal, Remeron, Zyprexa p.r.n., and Luvox 50 mg at bedtime. Adjust further as clinically indicated. LINDSAY BROWN MD DR: JEREL/tavo JOB#: [id number] / [id number]
--- NOTE | 2016-10-22 02:10 | PN ---
DATE: 10/21/2016 PSYCHIATRIC PROGRESS NOTE This note covers elements not covered in my initial note. SUBJECTIVE: Per nursing report, the patient woke up at 1 o'clock this morning, wanting to go out, church. Received Zyprexa p.r.n. went back to bed, remains quite confused, exit seeking this evening as I met with him. REVIEW OF SYSTEMS: No CV, , eye, ENT or pulmonary system symptoms on review. Reliability poor. MENTAL STATUS EXAM: Oriented to himself. Insight, judgment, recent and remote memory, attention, concentration, fund of knowledge poor, consistent with his diagnosis mentioned in my initial note. IMPRESSION: Major neurocognitive disorder, Alzheimer, vascular with depression, delusion and behavioral disturbance. Rest unchanged. PLAN: Continue Haldol oral 5 mg daily, BuSpar, Depakote, Ativan p.r.n., trazodone, Risperdal, Remeron, Atarax, Zyprexa p.r.n., and Luvox 50 mg at bedtime will increase to 75 mg at bedtime. MAN Phoenix BROWN MD DR: JEREL/tavo JOB#: [id number] / [id number]
[2016-10-22] MEDS: LEVOTHYROXINE 25 MCG TABLET. PO SCH (06:00)
[2016-10-22 06:29] VITALS: BP 108/73
[2016-10-22] MEDS: ASPIRIN 81 MG TAB.CHEW PO SCH (08:34)
[2016-10-22] MEDS: TAMSULOSIN 0.4 MG CAP.ER.24H. PO SCH (08:34)
[2016-10-22] MEDS: busPIRone 10 MG TABLET. PO SCH ×3 (08:34→19:49)
[2016-10-22] MEDS: FERROUS SULFATE 325 MG TABLET PO SCH (08:34)
[2016-10-22] MEDS: LISINOPRIL 5 MG TABLET. PO SCH (08:34)
[2016-10-22] MEDS: AMIODARONE HCL 200 MG TABLET PO SCH (08:35)
[2016-10-22] MEDS: risperiDONE 0.25 MG TABLET. PO SCH ×2 (08:36→19:49)
[2016-10-22] MEDS: FAMOTIDINE 20 MG TABLET PO SCH (08:36)
[2016-10-22] MEDS: VALPROATE ACID 250 MG/5 ML ORAL SOLUTION PO SCH ×2 (08:38→19:48)
[2016-10-22] MEDS: MULTIVITAMIN with MINERAL TABLET. PO SCH (08:38)
[2016-10-22] MEDS: NYSTATIN TOPICAL POWDER 30GM BOTTLE. TP SCH ×2 (08:41→21:00)
[2016-10-22] MEDS: HALOPERIDOL 5 MG TABLET PO SCH (08:41)
--- NOTE | 2016-10-22 09:15 | NUR ---
THERAPEUTIC RECREATION GROUP NOTE TITLE :Beach Ball Bop ACTIVITY : Movement/ Exercise GOAL : Increase morale, attention, endurance, socialization. Decrease stress/anxiety. DURATION : 35 Minutes RESPONSE : Full participation. Pt. needed no prompting to stay on task, he was accommodating to others who joined late. He was alert and smiled the entire time. He was able to track and bump the ball back with ease. He was pleasant to have in group.
--- NOTE | 2016-10-22 09:57 | NUR ---
Behavior Intervention Response and Plan: BIRP Note: Behavior: Assumed Care of patient, patient located in Day Room at shift change. Patient exhibited the following behavior Calm, Interactive, Compliant. Brief assessment on rounds of vital signs, medication needs, lab studies, and pain. Treatment plan problems 1 and 2. Intervention: Patient assessed and the following interventions initiated safety checks 15 Minute Checks Cognitive Assessment , Head to toe Assessment , Medications. Response: After interactions and interventions patient responded in the following manner, Interactive , Appropriate ,Cooperative. Continue to assess behaviors and condition will continue to monitor throughout the shift as needed. 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 Continue to assess patient for changes in above assessment. Monitor for medication needs, pain, and safety concerns. Hourly rounding performed to ensure safe environment.
--- NOTE | 2016-10-22 11:15 | NUR ---
THERAPEUTIC RECREATION GROUP NOTE TITLE :Movement to Music: Strength ACTIVITY : Movement/ Exercise GOAL : Increase morale, attention, flexibility. Decrease stress/anxiety. DURATION : 45 Minutes RESPONSE : Full participation. Pt. needed no prompting to stay on task. He smiled often and followed the moves almost perfectly. He was a pleasure to have in group.
--- NOTE | 2016-10-22 14:15 | NUR ---
THERAPEUTIC RECREATION GROUP NOTE TITLE :ABC's of Leisure ACTIVITY : Leisure Awareness GOAL : Increase knowledge of leisure activities DURATION : 60 Minutes RESPONSE : Full participation. Pt. needed no prompting to stay on task. He came up with several leisure activities to complete the alphabet. He smiled and laughed often. He was able to name an activity after solving clues.
[2016-10-22] MEDS: WARFARIN 4 MG TABLET. PO SCH (16:19)
[2016-10-22 16:55] VITALS: BP 113/69
[2016-10-22] MEDS: MIRTAZAPINE 15 MG TABLET PO SCH (19:49)
[2016-10-22] MEDS: traZODone 50 MG TABLET. PO PRN (19:50)
--- NOTE | 2016-10-22 20:15 | NUR ---
Behavior Intervention Response and Plan: BIRP Note: Behavior: Assumed Care of patient, patient located in Day Room at shift change. Patient exhibited the following behavior Calm, Perplexed, Disorganized. Brief assessment on rounds of vital signs, medication needs, lab studies, and pain. Treatment plan problems 1 and 2. Intervention: Patient assessed and the following interventions initiated safety checks 15 Minute Checks Cognitive Assessment , Head to toe Assessment , Medications. Response: After interactions and interventions patient responded in the following manner, Interactive , Appropriate ,Cooperative. Continue to assess behaviors and condition will continue to monitor throughout the shift as needed. Plan: Continue to monitor Master Treatment Plan for patient's progress toward short term goals of Decreased Agitation, Decreased Aggression, skilled nursing goals to return to previous living setting vs placement. Continue to assess patient for changes in above assessment. Monitor for medication needs, pain, and safety concerns. Hourly rounding performed to ensure safe environment.
--- NOTE | 2016-10-22 22:50 | PDOC ---
Exam Blake Demential Exam: Blake Note: Please also refer to the separate dictated note~for this date of service dictated separately.~Patient seen individually. Discussed the patient with Nursing staff reviewed the chart.~Reviewed interim history and current functioning. Reviewed vital signs,~Labs/ Radiology~and current medications noted below. Continue current treatment with the changes noted in the dictated addendum note Assessment: Vital Signs: Vital Signs Date Time Temp Pulse Resp B/P (MAP) Pulse Ox O2 Delivery O2 Flow Rate FiO2 10/22/16 16:55 98.4 68 20 113/69 (84) 97 10/21/16 16:39 Room Air I&O Intake and Output 10/22/16 07:00 Intake Total 1320 ml Balance 1320 ml Intake Oral 1320 ml Current Medications: Meds: Current Medications Acetaminophen (Tylenol) 650 mg PRN Q6HRS PRN PO PAIN / TEMP Last administered on 09/15/16 20:02; Start 09/12/16 at 19:15 Multi-Ingredient Ointment (Analgesic [place]) 1 derek PRN QID PRN TP MUSCLE PAIN; Start 09/12/16 at 19:15 Al Hydroxide/Mg Hydroxide (Mylanta Plus Xs) 15 ml PRN AFTMEALHC PRN PO DYSPEPSIA; Start 09/12/16 at 19:15 Magnesium Hydroxide (Milk Of Magnesia) 2,400 mg PRN QHS PRN PO CONSTIPATION; Start 09/12/16 at 19:15 Divalproex Sodium (Depakote) 250 mg BID PO Last administered on 09/20/16 08:38 ; Start 09/12/16 at 21:00; Stop 09/20/16 at 10:41; Status DC Lorazepam (Ativan) 0.5 mg PRN BID PRN PO ANXIETY / AGITATION Last administered on 10/07/16 19:22; Start 09/12/16 at 19:45; Stop 10/07/16 at 20:59; Status DC Lorazepam (Ativan) 1 mg BID PO Last administered on 09/17/16 08:49; Start 02/19 at 21:00; Stop 09/17/16 at 18:05; Status DC Selegiline HCl (Emsam) 1 patch DAILY TD ; Start 09/13/16 at 09:00; Stop at 18:35; Status DC Buspirone HCl (Buspar) 7.5 mg BID PO Last administered on 09/27/16 09:12; Start 09/12/16 at 21:00; Stop 09/27/16 at 10:31; Status DC Amiodarone HCl (Cordarone) 100 mg DAILY PO Last administered on 10/22/16 08:35 ; Start 09/13/16 at 09:00 Aspirin (Children'S Aspirin) 81 mg DAILY PO Last administered on 10/22/16 08: 34; Start 09/13/16 at 09:00 Famotidine (Pepcid) 20 mg DAILY PO Last administered on 10/22/16 08:36; Start 09/13/16 at 09:00 Lisinopril (Prinivil) 5 mg DAILY PO Last administered on 10/22/16 08:34; Start 09/13/16 at 09:00 Loperamide HCl (Imodium) 2 mg PRN Q4HRS PRN PO DIARRHEA; Start 09/12/16 at 19: 45 Tamsulosin HCl (Flomax) 0.4 mg DAILY PO Last administered on 10/22/16 08:34; Start 09/13/16 at 09:00 Warfarin Sodium (Coumadin) 2.5 mg DAILY16 PO Last administered on 09/14/16 16: 05; Start 09/13/16 at 16:00; Stop 09/15/16 at 15:03; Status DC Multivitamins/ Calcium (Thera-M Plus) 1 tab DAILY PO Last administered on 08:38; Start 09/13/16 at 09:00 Warfarin Sodium (Coumadin) 2 mg DAILY16 PO Last administered on 09/14/16 16:06 ; Start 09/13/16 at 16:00; Stop 09/15/16 at 15:02; Status DC Warfarin Sodium (Coumadin Per Pharmacy) 1 each PRN DAILY PRN MC SEE COMMENTS Last administered on 10/18/16 08:19; Start 09/13/16 at 03:15 Vitamin D (Vitamin D3) 50,000 unit WEEKLY PO Last administered on 10/19/16 13: 09; Start 09/14/16 at 09:00 Selegiline HCl (Eldepryl) 5 mg DAILY PO Last administered on 10/07/16 09:39; Start 09/14/16 at 09:00; Stop 10/07/16 at 20:59; Status DC Trazodone HCl (Desyrel) 50 mg PRN QHS PRN PO INSOMNIA, MAY REPEAT X1 Last administered on 10/22/16 19:50; Start 09/14/16 at 19:15 Nystatin (Nystop) 1 derek BID TP Last administered on 10/22/16 08:41; Start at 09:00 Nystatin (Nystop) 30 derek STK-MED ONCE TP Last administered on 09/14/16 21:27; Start 09/14/16 at 21:27; Stop 09/14/16 at 21:28; Status DC Warfarin Sodium (Coumadin) 3 mg 1X WARF ONCE PO Last administered on 15:48; Start 09/15/16 at 16:00; Stop 09/15/16 at 16:01; Status DC Warfarin Sodium (Coumadin) 2.5 mg 1X ONCE PO Last administered on 09/15/16 15 :47; Start 09/15/16 at 15:15; Stop 09/15/16 at 15:17; Status DC Warfarin Sodium (Coumadin) 5 mg 1X WARF ONCE PO Last administered on 18:16; Start 09/16/16 at 16:00; Stop 09/16/16 at 16:01; Status DC Warfarin Sodium (Coumadin) 2 mg 1X WARF ONCE PO Last administered on 16:02; Start 09/17/16 at 16:00; Stop 09/17/16 at 16:01; Status DC Warfarin Sodium (Coumadin) 2.5 mg 1X WARF ONCE PO Last administered on 16:03; Start 09/17/16 at 16:00; Stop 09/17/16 at 16:01; Status DC Lorazepam (Ativan) 0.5 mg TID PO Last administered on 09/20/16 20:45; Start at 21:00; Stop 09/20/16 at 21:00; Status DC Lorazepam (Ativan) 0.5 mg BID PO Last administered on 09/24/16 19:38; Start at 09:00; Stop 09/24/16 at 21:01; Status DC Lorazepam (Ativan) 0.5 mg DAILY PO Last administered on 09/27/16 09:15; Start 09/25/16 at 09:00; Stop 09/27/16 at 10:39; Status DC Warfarin Sodium (Coumadin) 2.5 mg 1X WARF ONCE PO Last administered on 14:58; Start 09/18/16 at 16:00; Stop 09/18/16 at 16:01; Status DC Warfarin Sodium (Coumadin) 2 mg 1X WARF ONCE PO Last administered on 14:59; Start 09/18/16 at 16:00; Stop 09/18/16 at 16:01; Status DC Sertraline HCl (Zoloft) 25 mg DAILY PO Last administered on 09/24/16 07:43; Start 09/19/16 at 09:00; Stop 09/24/16 at 18:00; Status DC Warfarin Sodium (Coumadin - No Dose Today) 1 each 1X WARF ONCE MC Last administered on 09/19/16 14:14; Start 09/19/16 at 16:00; Stop 09/19/16 at 16:02 ; Status DC Quetiapine Fumarate (SEROquel) 25 mg QHS PO Last administered on 10/03/16 19: 12; Start 09/20/16 at 21:00; Stop 10/04/16 at 10:51; Status DC Warfarin Sodium (Coumadin) 2.5 mg 1X WARF ONCE PO Last administered on 16:31; Start 09/20/16 at 16:00; Stop 09/20/16 at 16:01; Status DC Valproic Acid (Depakene) 250 mg BID PO Last administered on 09/25/16 09:29; Start 09/20/16 at 21:00; Stop 09/25/16 at 18:06; Status DC Warfarin Sodium (Coumadin) 2.5 mg 1X WARF ONCE PO Last administered on 16:02; Start 09/21/16 at 16:00; Stop 09/21/16 at 16:01; Status DC Warfarin Sodium (Coumadin) 1 mg 1X WARF ONCE PO Last administered on 16:02; Start 09/21/16 at 16:00; Stop 09/21/16 at 16:01; Status DC Mirtazapine (Remeron) 7.5 mg QHS PO Last administered on 09/26/16 19:21; Start 09/21/16 at 21:00; Stop 09/27/16 at 10:31; Status DC Warfarin Sodium (Coumadin) 4 mg 1X WARF ONCE PO Last administered on 16:31; Start 09/22/16 at 16:00; Stop 09/22/16 at 16:01; Status DC Warfarin Sodium (Coumadin) 4 mg 1X WARF ONCE PO Last administered on 15:42; Start 09/23/16 at 16:00; Stop 09/23/16 at 16:01; Status DC Warfarin Sodium (Coumadin) 4 mg DAILY16 PO Last administered on 09/25/16 16:00 ; Start 09/24/16 at 16:00; Stop 09/26/16 at 08:25; Status DC Sertraline HCl (Zoloft) 50 mg DAILY PO Last administered on 10/03/16 08:52; Start 09/25/16 at 09:00; Stop 10/03/16 at 14:04; Status DC Valproic Acid (Depakene) 375 mg BID PO Last administered on 10/03/16 08:53; Start 09/25/16 at 21:00; Stop 10/03/16 at 18:33; Status DC Warfarin Sodium (Coumadin) 2 mg DAILY16 PO Last administered on 10/08/16 16:21 ; Start 09/26/16 at 16:00; Stop 10/08/16 at 16:53; Status DC Warfarin Sodium (Coumadin) 2.5 mg DAILY16 PO Last administered on 10/08/16 16: 21; Start 09/26/16 at 16:00; Stop 10/08/16 at 16:53; Status DC Quetiapine Fumarate (SEROquel) 12.5 mg BID92 PO Last administered on 09/30/16 13:36; Start 09/27/16 at 09:00; Stop 09/30/16 at 22:00; Status DC Buspirone HCl (Buspar) 10 mg TID PO Last administered on 10/22/16 19:49; Start 09/27/16 at 14:00 Mirtazapine (Remeron) 15 mg QHS PO Last administered on 10/22/16 19:49; Start 09/27/16 at 21:00 Lorazepam (Ativan) 0.5 mg DAILY PO Last administered on 10/17/16 07:51; Start 09/28/16 at 09:00; Stop 10/17/16 at 17:00; Status DC Quetiapine Fumarate (SEROquel) 12.5 mg 0900,1400,1700 PO Last administered on 08:52; Start 10/01/16 at 09:00; Stop 10/03/16 at 14:04; Status DC Olanzapine (ZyPREXA ZYDIS) 2.5 mg PRN Q2HR PRN PO PSYCHOSIS Last administered on 10/21/16 01:39; Start 10/03/16 at 10:00 Quetiapine Fumarate (SEROquel) 25 mg 0900,1400,1700 PO Last administered on 10/04 10:01; Start 10/03/16 at 17:00; Stop 10/04/16 at 10:51; Status DC Hydroxyzine HCl (Atarax) 50 mg PRN Q2HR PRN PO ANXIETY / AGITATION Last administered on 10/06/16 11:50; Start 10/03/16 at 14:15 Valproic Acid (Depakene) 500 mg BID PO Last administered on 10/22/16 19:48; Start 10/03/16 at 21:00 Risperidone (RisperDAL) 0.25 mg BID PO Last administered on 10/09/16 09:01; Start 10/04/16 at 21:00; Stop 10/09/16 at 18:21; Status DC Levothyroxine Sodium (Synthroid) 12.5 mcg DAILY06 PO Last administered on 06:00; Start 10/07/16 at 06:00 Lorazepam (Ativan) 0.25 mg PRN Q2HR PRN PO ANXIETY / AGITATION Last administered on 10/21/16 13:25; Start 10/07/16 at 21:15 Risperidone (RisperDAL) 0.375 mg DAILY PO Last administered on 10/22/16 08:36 ; Start 10/10/16 at 09:00 Risperidone (RisperDAL) 0.25 mg QHS PO Last administered on 10/22/16 19:49; Start 10/09/16 at 21:00 Warfarin Sodium (Coumadin - No Dose Today) 1 each 1X WARF ONCE MC Last administered on 10/10/16 14:23; Start 10/10/16 at 16:00; Stop 10/10/16 at 16:01; Status DC Haloperidol Lactate (Haldol) 5 mg DAILY IM Last administered on 10/12/16 08:42 ; Start 10/10/16 at 08:00; Stop 10/12/16 at 18:58; Status DC Lorazepam (Ativan) 0.5 mg DAILY IM Last administered on 10/12/16 08:43; Start 10/10/16 at 08:00; Stop 10/12/16 at 18:43; Status DC Warfarin Sodium (Coumadin) 4 mg DAILY16 PO Last administered on 10/14/16 16:00 ; Start 10/11/16 at 16:00; Stop 10/15/16 at 09:01; Status DC Fluvoxamine Maleate (Luvox) 25 mg HS PO Last administered on 10/14/16 19:23; Start 10/11/16 at 21:00; Stop 10/15/16 at 17:44; Status DC Haloperidol (Haldol) 2.5 mg DAILY PO Last administered on 10/15/16 08:47; Start 10/13/16 at 09:00; Stop 10/15/16 at 19:00; Status DC Warfarin Sodium (Coumadin) 2.5 mg 1X WARF ONCE PO Last administered on 16:22; Start 10/15/16 at 16:00; Stop 10/15/16 at 16:01; Status DC Warfarin Sodium (Coumadin) 2 mg 1X WARF ONCE PO Last administered on 16:22; Start 10/15/16 at 16:00; Stop 10/15/16 at 16:01; Status DC Fluvoxamine Maleate (Luvox) 50 mg HS PO Last administered on 10/21/16 19:37; Start 10/15/16 at 21:00; Stop 10/21/16 at 21:42; Status DC Warfarin Sodium (Coumadin) 4 mg 1X WARF ONCE PO Last administered on 15:34; Start 10/16/16 at 16:00; Stop 10/16/16 at 16:01; Status DC Warfarin Sodium (Coumadin) 2.5 mg 1X WARF ONCE PO Last administered on 14:42; Start 10/17/16 at 16:00; Stop 10/17/16 at 16:01; Status DC Warfarin Sodium (Coumadin) 2 mg 1X WARF ONCE PO Last administered on 14:42; Start 10/17/16 at 16:00; Stop 10/17/16 at 16:01; Status DC Warfarin Sodium (Coumadin) 4 mg Q48H ONCE PO ; Start 10/18/16 at 16:00; Stop at 16:00; Status DC Warfarin Sodium (Coumadin) 2 mg Q48H ONCE PO ; Start 10/19/16 at 16:00; Stop at 16:00; Status DC Warfarin Sodium (Coumadin) 2.5 mg Q48H ONCE PO ; Start 10/19/16 at 16:00; Stop 10/19/16 at 16:00; Status DC Warfarin Sodium (Coumadin) 4 mg Q48H PO Last administered on 10/22/16 16:19; Start 10/18/16 at 16:00 Warfarin Sodium (Coumadin) 2 mg Q48H PO Last administered on 10/21/16 13:25; Start 10/19/16 at 16:00 Warfarin Sodium (Coumadin) 2.5 mg Q48H PO Last administered on 10/21/16 13:25 ; Start 10/19/16 at 16:00 Ferrous Sulfate (Feosol) 325 mg DAILYWBKFT PO Last administered on 10/22/16 08 :34; Start 10/19/16 at 08:00 Haloperidol (Haldol) 5 mg 1X PO Last administered on 10/19/16 09:38; Start at 09:45; Stop 10/22/16 at 08:39; Status DC Lorazepam (Ativan) 0.5 mg DAILY IM Last administered on 10/20/16 10:36; Start 10/19/16 at 09:00; Stop 10/20/16 at 19:46; Status DC Haloperidol Lactate (Haldol) 5 mg DAILY IM Last administered on 10/20/16 10:35 ; Start 10/19/16 at 09:00; Stop 10/20/16 at 19:46; Status DC Haloperidol (Haldol) 5 mg DAILY PO Last administered on 10/21/16 09:00; Start 10/21/16 at 09:00; Stop 10/22/16 at 08:38; Status DC Fluvoxamine Maleate (Luvox) 75 mg HS PO ; Start 10/22/16 at 21:00 Haloperidol (Haldol) 5 mg DAILY PO Last administered on 10/22/16 08:41; Start 10/22/16 at 09:00 Active Scripts Active Reported Trazodone Hcl 50 Mg Tablet 50 Mg PO PRN QHS PRN Risperdal (Risperidone) 0.25 Mg Tablet 0.25 Mg PO QHS Risperdal (Risperidone) 0.25 Mg Tablet 0.375 Mg PO DAILY Hydroxyzine Hcl 50 Mg Tablet 50 Mg PO PRN Q2HR PRN Fluvoxamine Maleate 50 Mg Tablet 50 Mg PO QHS Buspirone Hcl 10 Mg Tablet 10 Mg PO TID Coumadin (Warfarin Sodium) 2.5 Mg Tablet 2.5 Mg PO Coumadin (Warfarin Sodium) 2 Mg Tablet 2 Mg PO Depakene (Valproate Sodium) 250 Mg/5 Ml Solution 500 Mg PO BID Zyprexa Zydis (Olanzapine) 5 Mg Tab.rapdis 2.5 Mg PO PRN Q2HR PRN Nystatin 15 Gm Powder 1 Derek TP BID Mirtazapine 15 Mg Tablet 15 Mg PO QHS Analgesic [place] (Methyl Salicylate/Menthol) 28 Gm Oint...g. 1 Derek TP PRN QID PRN Milk Of Magnesia (Magnesium Hydroxide) 400 Mg/5 Ml Oral.susp 2,400 Mg PO PRN QHS PRN Mag-Al Plus Xs Suspension (Mag Hydrox/Al Hydrox/Simeth) 30 Ml Oral.susp 15 Ml PO PRN AFTMEALHC PRN Levothyroxine Sodium 25 Mcg Tablet 12.5 Mcg PO DAILY06 Ferrous Sulfate 325 Mg Tablet 325 Mg PO DAILYWBKFT D3-50 (Cholecalciferol (Vitamin D3)) 50,000 Unit Capsule 50,000 Unit PO WEEKLY Tylenol (Acetaminophen) 325 Mg Tablet 650 Mg PO PRN Q6HRS PRN Therems-M (Multivits, W-Fe,Other Min) 1 Each Tablet 1 Each PO DAILY Tamsulosin Hcl 0.4 Mg Cap.er.24h 0.4 Mg PO DAILY Lisinopril 5 Mg Tablet 5 Mg PO DAILY Famotidine 20 Mg Tablet 20 Mg PO DAILY Emsam (Selegiline) 1 Each Patch.td24 1 Each TD DAILY Aspirin 81 Mg Tab.chew 81 Mg PO DAILY Amiodarone Hcl 200 Mg Tablet 100 Mg PO DAILY Depakote (Divalproex Sodium) 250 Mg Tablet.dr 250 Mg PO BID Coumadin (Warfarin Sodium) 4 Mg Tablet 4.5 Mg PO DAILY Ativan (Lorazepam) 0.5 Mg Tablet 0.5 Mg PO PRN BID PRN Imodium A-D (Loperamide HCl) 2 Mg Capsule 2 Mg PO PRN PRN MDD 12 mg Ativan (Lorazepam) 1 Mg Tablet 1 Mg PO BID Buspirone Hcl 7.5 Mg Tablet 7.5 Mg PO BID Diagnosis: Problems: (1) Dementia in Alzheimer's disease with delusions (2) Dementia in Alzheimer's disease with depression (3) Dementia, vascular, with delusions (4) Dementia, vascular, with depression (5) Impulse control disorder (6) Encounter for medical screening examination (7) Anxiety disorder LINDSAY BROWN MD Oct 22, 2016 22:50
--- NOTE | 2016-10-23 01:31 | PN ---
DATE: 10/22/2016 SUBJECTIVE: The patient was seen individually evening of 10/22/2016. Discussed with nursing staff, reviewed the chart. Overall, the patient is doing better, compliant with this medication, takes his medications whole, not aggressive. REVIEW OF SYSTEMS: No CV, , pulmonary, eye system symptoms on review. Reliability poor. MENTAL STATUS EXAM: Oriented to himself. Insight, judgment, recent and remote memory, attention, concentration, fund of knowledge poor, consistent with his diagnosis mentioned in my initial note. IMPRESSION: Major neurocognitive disorder, Alzheimer, vascular with depression, delusion and behavioral disturbance. Rest unchanged. PLAN: Continue psychotropics mentioned in my initial note including the Luvox, Haldol, Risperdal, Remeron, Zyprexa p.r.n., BuSpar, Depakene, Ativan p.r.n., trazodone. LINDSAY BROWN MD DR: JEREL/tavo JOB#: [id number] / [id number]
[2016-10-23 06:05] VITALS: BP 140/81
[2016-10-23] MEDS: LEVOTHYROXINE 25 MCG TABLET. PO SCH (06:12)
[2016-10-23] MEDS: VALPROATE ACID 250 MG/5 ML ORAL SOLUTION PO SCH ×2 (08:05→19:38)
[2016-10-23] MEDS: risperiDONE 0.25 MG TABLET. PO SCH ×2 (08:05→19:39)
[2016-10-23] MEDS: MULTIVITAMIN with MINERAL TABLET. PO SCH (08:06)
[2016-10-23] MEDS: busPIRone 10 MG TABLET. PO SCH ×3 (08:06→19:39)
[2016-10-23] MEDS: LISINOPRIL 5 MG TABLET. PO SCH (08:06)
[2016-10-23] MEDS: FERROUS SULFATE 325 MG TABLET PO SCH (08:08)
[2016-10-23] MEDS: HALOPERIDOL 5 MG TABLET PO SCH (08:08)
[2016-10-23] MEDS: FAMOTIDINE 20 MG TABLET PO SCH (08:08)
[2016-10-23] MEDS: ASPIRIN 81 MG TAB.CHEW PO SCH (08:08)
[2016-10-23] MEDS: TAMSULOSIN 0.4 MG CAP.ER.24H. PO SCH (08:08)
[2016-10-23] MEDS: AMIODARONE HCL 200 MG TABLET PO SCH (08:08)
[2016-10-23] MEDS: NYSTATIN TOPICAL POWDER 30GM BOTTLE. TP SCH ×2 (08:08→19:39)
--- NOTE | 2016-10-23 08:44 | NUR ---
Pharmacy Warfarin Dosing Note S:Pharmacy consulted to assist with anticoagulation therapy started 09/13/16 with target INR: 2 -3 O:ABBEY MATHIS is a 76 year old M with a history of stroke. LABS: Last INR: 2.1 Last HGB: 11.6 Last HCT: 34.9 Last PLT: 143 Drug Interaction Changes: Same Interacting Drug Ongoing Drug Interactions: AMIODARONE, FLUVOXAMINE A:INR is within the desired range. We will continue to alternate Coumadin 4.5mg with 4.0mg daily. P: Warfarin dose: Coumadin 4.5mg alternate with Coumadin 4mg daily. Next INR due 08/28/16 Pharmacy anticoagulation service will continue to follow. CHAYO ACEVEDO [facility] 10/23/16 0844
--- NOTE | 2016-10-23 09:20 | NUR ---
THERAPEUTIC RECREATION GROUP NOTE TITLE :Table Ball ACTIVITY : Movement/ Exercise GOAL : Increase morale, attention, endurance, socialization. Decrease stress/anxiety. DURATION : 70 Minutes RESPONSE : Full participation. Pt. started with the group but left to take a shower. He returned and needed no prompting to stay on task. He was apologetic and unsure about his abilities. He had quick reflexes and smiled often. He was helpful and inclusive of others.
--- NOTE | 2016-10-23 09:26 | NUR ---
Behavior Intervention Response and Plan: BIRP Note: Behavior: Assumed Care of patient, patient located in Hallway at shift change. Patient exhibited the following behavior Wandering, Calm, Interactive. Brief assessment on rounds of vital signs, medication needs, lab studies, and pain. Treatment plan problems 1 and 2. Intervention: Patient assessed and the following interventions initiated safety checks 15 Minute Checks Cognitive Assessment , Head to toe Assessment , Medications. Response: After interactions and interventions patient responded in the following manner, Disorganized , Wandering ,Compliant. Continue to assess behaviors and condition will continue to monitor throughout the shift as needed. 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 Continue to assess patient for changes in above assessment. Monitor for medication needs, pain, and safety concerns. Hourly rounding performed to ensure safe environment.
--- NOTE | 2016-10-23 13:17 | NUR ---
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 Unable to redirect. Given PRN zyprexa 2.5mg PO per order for psychosis and will continue to monitor.
--- NOTE | 2016-10-23 14:00 | NUR ---
PRN zyprexa effective. Patient much calmer and is now sitting on couch in dayroom.
--- NOTE | 2016-10-23 14:00 | NUR ---
THERAPEUTIC RECREATION GROUP NOTE TITLE :Sing along with Deidra ACTIVITY : Music GOAL : Increase socialization, elevate mood, stimulate memory DURATION : 45 minutes RESPONSE : No participation.
[2016-10-23 16:10] VITALS: BP 96/64
[2016-10-23] MEDS: WARFARIN 2.5 MG TABLET. PO SCH (16:39)
[2016-10-23] MEDS: WARFARIN 2 MG TABLET. PO SCH (16:40)
--- NOTE | 2016-10-23 17:02 | NUR ---
Dr. Murphy looked at the area on patients left side of neck. He stated that it looks like a basal cell carcinoma, which is slow growing, and they should follow up with a healthcare interpreter after discharge.
[2016-10-23] MEDS: MIRTAZAPINE 15 MG TABLET PO SCH (19:38)
--- NOTE | 2016-10-23 20:05 | PDOC ---
Exam Blake Demential Exam: Blake Note: Please also refer to the separate dictated note~for this date of service dictated separately.~Patient seen individually. Discussed the patient with Nursing staff reviewed the chart.~Reviewed interim history and current functioning. Reviewed vital signs,~Labs/ Radiology~and current medications noted below. Continue current treatment with the changes noted in the dictated addendum note Assessment: Vital Signs: Vital Signs Date Time Temp Pulse Resp B/P (MAP) Pulse Ox O2 Delivery O2 Flow Rate FiO2 10/23/16 16:10 97.8 70 20 96/64 (75) 95 10/21/16 16:39 Room Air I&O Intake and Output 10/23/16 07:00 Intake Total 720 ml Balance 720 ml Intake Oral 720 ml Labs: Laboratory Tests Test 10/23/16 07:44 Prothrombin Time 21.4 SEC (9.4-11.4) H Prothrombin Time INR 2.1 (0.9-1.1) H Current Medications: Meds: Current Medications Acetaminophen (Tylenol) 650 mg PRN Q6HRS PRN PO PAIN / TEMP Last administered on 09/15/16 20:02; Start 09/12/16 at 19:15 Multi-Ingredient Ointment (Analgesic Burns) 1 derek PRN QID PRN TP MUSCLE PAIN; Start 09/12/16 at 19:15 Al Hydroxide/Mg Hydroxide (Mylanta Plus Xs) 15 ml PRN AFTMEALHC PRN PO DYSPEPSIA; Start 09/12/16 at 19:15 Magnesium Hydroxide (Milk Of Magnesia) 2,400 mg PRN QHS PRN PO CONSTIPATION; Start 09/12/16 at 19:15 Divalproex Sodium (Depakote) 250 mg BID PO Last administered on 09/20/16 08:38 ; Start 09/12/16 at 21:00; Stop 09/20/16 at 10:41; Status DC Lorazepam (Ativan) 0.5 mg PRN BID PRN PO ANXIETY / AGITATION Last administered on 10/07/16 19:22; Start 09/12/16 at 19:45; Stop 10/07/16 at 20:59; Status DC Lorazepam (Ativan) 1 mg BID PO Last administered on 09/17/16 08:49; Start 02/19 at 21:00; Stop 09/17/16 at 18:05; Status DC Selegiline HCl (Emsam) 1 patch DAILY TD ; Start 09/13/16 at 09:00; Stop at 18:35; Status DC Buspirone HCl (Buspar) 7.5 mg BID PO Last administered on 09/27/16 09:12; Start 09/12/16 at 21:00; Stop 09/27/16 at 10:31; Status DC Amiodarone HCl (Cordarone) 100 mg DAILY PO Last administered on 10/23/16 08:08 ; Start 09/13/16 at 09:00 Aspirin (Children'S Aspirin) 81 mg DAILY PO Last administered on 10/23/16 08: 08; Start 09/13/16 at 09:00 Famotidine (Pepcid) 20 mg DAILY PO Last administered on 10/23/16 08:08; Start 09/13/16 at 09:00 Lisinopril (Prinivil) 5 mg DAILY PO Last administered on 10/23/16 08:06; Start 09/13/16 at 09:00 Loperamide HCl (Imodium) 2 mg PRN Q4HRS PRN PO DIARRHEA; Start 09/12/16 at 19: 45 Tamsulosin HCl (Flomax) 0.4 mg DAILY PO Last administered on 10/23/16 08:08; Start 09/13/16 at 09:00 Warfarin Sodium (Coumadin) 2.5 mg DAILY16 PO Last administered on 09/14/16 16: 05; Start 09/13/16 at 16:00; Stop 09/15/16 at 15:03; Status DC Multivitamins/ Calcium (Thera-M Plus) 1 tab DAILY PO Last administered on 08:06; Start 09/13/16 at 09:00 Warfarin Sodium (Coumadin) 2 mg DAILY16 PO Last administered on 09/14/16 16:06 ; Start 09/13/16 at 16:00; Stop 09/15/16 at 15:02; Status DC Warfarin Sodium (Coumadin Per Pharmacy) 1 each PRN DAILY PRN MC SEE COMMENTS Last administered on 10/23/16 08:43; Start 09/13/16 at 03:15 Vitamin D (Vitamin D3) 50,000 unit WEEKLY PO Last administered on 10/19/16 13: 09; Start 09/14/16 at 09:00 Selegiline HCl (Eldepryl) 5 mg DAILY PO Last administered on 10/07/16 09:39; Start 09/14/16 at 09:00; Stop 10/07/16 at 20:59; Status DC Trazodone HCl (Desyrel) 50 mg PRN QHS PRN PO INSOMNIA, MAY REPEAT X1 Last administered on 10/22/16 19:50; Start 09/14/16 at 19:15 Nystatin (Nystop) 1 derek BID TP Last administered on 10/23/16 19:39; Start at 09:00 Nystatin (Nystop) 30 derek STK-MED ONCE TP Last administered on 09/14/16 21:27; Start 09/14/16 at 21:27; Stop 09/14/16 at 21:28; Status DC Warfarin Sodium (Coumadin) 3 mg 1X WARF ONCE PO Last administered on 15:48; Start 09/15/16 at 16:00; Stop 09/15/16 at 16:01; Status DC Warfarin Sodium (Coumadin) 2.5 mg 1X ONCE PO Last administered on 09/15/16 15 :47; Start 09/15/16 at 15:15; Stop 09/15/16 at 15:17; Status DC Warfarin Sodium (Coumadin) 5 mg 1X WARF ONCE PO Last administered on 18:16; Start 09/16/16 at 16:00; Stop 09/16/16 at 16:01; Status DC Warfarin Sodium (Coumadin) 2 mg 1X WARF ONCE PO Last administered on 16:02; Start 09/17/16 at 16:00; Stop 09/17/16 at 16:01; Status DC Warfarin Sodium (Coumadin) 2.5 mg 1X WARF ONCE PO Last administered on 16:03; Start 09/17/16 at 16:00; Stop 09/17/16 at 16:01; Status DC Lorazepam (Ativan) 0.5 mg TID PO Last administered on 09/20/16 20:45; Start at 21:00; Stop 09/20/16 at 21:00; Status DC Lorazepam (Ativan) 0.5 mg BID PO Last administered on 09/24/16 19:38; Start at 09:00; Stop 09/24/16 at 21:01; Status DC Lorazepam (Ativan) 0.5 mg DAILY PO Last administered on 09/27/16 09:15; Start 09/25/16 at 09:00; Stop 09/27/16 at 10:39; Status DC Warfarin Sodium (Coumadin) 2.5 mg 1X WARF ONCE PO Last administered on 14:58; Start 09/18/16 at 16:00; Stop 09/18/16 at 16:01; Status DC Warfarin Sodium (Coumadin) 2 mg 1X WARF ONCE PO Last administered on 14:59; Start 09/18/16 at 16:00; Stop 09/18/16 at 16:01; Status DC Sertraline HCl (Zoloft) 25 mg DAILY PO Last administered on 09/24/16 07:43; Start 09/19/16 at 09:00; Stop 09/24/16 at 18:00; Status DC Warfarin Sodium (Coumadin - No Dose Today) 1 each 1X WARF ONCE MC Last administered on 09/19/16 14:14; Start 09/19/16 at 16:00; Stop 09/19/16 at 16:02 ; Status DC Quetiapine Fumarate (SEROquel) 25 mg QHS PO Last administered on 10/03/16 19: 12; Start 09/20/16 at 21:00; Stop 10/04/16 at 10:51; Status DC Warfarin Sodium (Coumadin) 2.5 mg 1X WARF ONCE PO Last administered on 16:31; Start 09/20/16 at 16:00; Stop 09/20/16 at 16:01; Status DC Valproic Acid (Depakene) 250 mg BID PO Last administered on 09/25/16 09:29; Start 09/20/16 at 21:00; Stop 09/25/16 at 18:06; Status DC Warfarin Sodium (Coumadin) 2.5 mg 1X WARF ONCE PO Last administered on 16:02; Start 09/21/16 at 16:00; Stop 09/21/16 at 16:01; Status DC Warfarin Sodium (Coumadin) 1 mg 1X WARF ONCE PO Last administered on 16:02; Start 09/21/16 at 16:00; Stop 09/21/16 at 16:01; Status DC Mirtazapine (Remeron) 7.5 mg QHS PO Last administered on 09/26/16 19:21; Start 09/21/16 at 21:00; Stop 09/27/16 at 10:31; Status DC Warfarin Sodium (Coumadin) 4 mg 1X WARF ONCE PO Last administered on 16:31; Start 09/22/16 at 16:00; Stop 09/22/16 at 16:01; Status DC Warfarin Sodium (Coumadin) 4 mg 1X WARF ONCE PO Last administered on 15:42; Start 09/23/16 at 16:00; Stop 09/23/16 at 16:01; Status DC Warfarin Sodium (Coumadin) 4 mg DAILY16 PO Last administered on 09/25/16 16:00 ; Start 09/24/16 at 16:00; Stop 09/26/16 at 08:25; Status DC Sertraline HCl (Zoloft) 50 mg DAILY PO Last administered on 10/03/16 08:52; Start 09/25/16 at 09:00; Stop 10/03/16 at 14:04; Status DC Valproic Acid (Depakene) 375 mg BID PO Last administered on 10/03/16 08:53; Start 09/25/16 at 21:00; Stop 10/03/16 at 18:33; Status DC Warfarin Sodium (Coumadin) 2 mg DAILY16 PO Last administered on 10/08/16 16:21 ; Start 09/26/16 at 16:00; Stop 10/08/16 at 16:53; Status DC Warfarin Sodium (Coumadin) 2.5 mg DAILY16 PO Last administered on 10/08/16 16: 21; Start 09/26/16 at 16:00; Stop 10/08/16 at 16:53; Status DC Quetiapine Fumarate (SEROquel) 12.5 mg BID92 PO Last administered on 09/30/16 13:36; Start 09/27/16 at 09:00; Stop 09/30/16 at 22:00; Status DC Buspirone HCl (Buspar) 10 mg TID PO Last administered on 10/23/16 19:39; Start 09/27/16 at 14:00 Mirtazapine (Remeron) 15 mg QHS PO Last administered on 10/23/16 19:38; Start 09/27/16 at 21:00 Lorazepam (Ativan) 0.5 mg DAILY PO Last administered on 10/17/16 07:51; Start 09/28/16 at 09:00; Stop 10/17/16 at 17:00; Status DC Quetiapine Fumarate (SEROquel) 12.5 mg 0900,1400,1700 PO Last administered on 08:52; Start 10/01/16 at 09:00; Stop 10/03/16 at 14:04; Status DC Olanzapine (ZyPREXA ZYDIS) 2.5 mg PRN Q2HR PRN PO PSYCHOSIS Last administered on 10/23/16 13:17; Start 10/03/16 at 10:00 Quetiapine Fumarate (SEROquel) 25 mg 0900,1400,1700 PO Last administered on 10/04 10:01; Start 10/03/16 at 17:00; Stop 10/04/16 at 10:51; Status DC Hydroxyzine HCl (Atarax) 50 mg PRN Q2HR PRN PO ANXIETY / AGITATION Last administered on 10/06/16 11:50; Start 10/03/16 at 14:15 Valproic Acid (Depakene) 500 mg BID PO Last administered on 10/23/16 19:38; Start 10/03/16 at 21:00 Risperidone (RisperDAL) 0.25 mg BID PO Last administered on 10/09/16 09:01; Start 10/04/16 at 21:00; Stop 10/09/16 at 18:21; Status DC Levothyroxine Sodium (Synthroid) 12.5 mcg DAILY06 PO Last administered on 06:12; Start 10/07/16 at 06:00 Lorazepam (Ativan) 0.25 mg PRN Q2HR PRN PO ANXIETY / AGITATION Last administered on 10/21/16 13:25; Start 10/07/16 at 21:15 Risperidone (RisperDAL) 0.375 mg DAILY PO Last administered on 10/23/16 08:05 ; Start 10/10/16 at 09:00 Risperidone (RisperDAL) 0.25 mg QHS PO Last administered on 10/23/16 19:39; Start 10/09/16 at 21:00 Warfarin Sodium (Coumadin - No Dose Today) 1 each 1X WARF ONCE MC Last administered on 10/10/16 14:23; Start 10/10/16 at 16:00; Stop 10/10/16 at 16:01; Status DC Haloperidol Lactate (Haldol) 5 mg DAILY IM Last administered on 10/12/16 08:42 ; Start 10/10/16 at 08:00; Stop 10/12/16 at 18:58; Status DC Lorazepam (Ativan) 0.5 mg DAILY IM Last administered on 10/12/16 08:43; Start 10/10/16 at 08:00; Stop 10/12/16 at 18:43; Status DC Warfarin Sodium (Coumadin) 4 mg DAILY16 PO Last administered on 10/14/16 16:00 ; Start 10/11/16 at 16:00; Stop 10/15/16 at 09:01; Status DC Fluvoxamine Maleate (Luvox) 25 mg HS PO Last administered on 10/14/16 19:23; Start 10/11/16 at 21:00; Stop 10/15/16 at 17:44; Status DC Haloperidol (Haldol) 2.5 mg DAILY PO Last administered on 10/15/16 08:47; Start 10/13/16 at 09:00; Stop 10/15/16 at 19:00; Status DC Warfarin Sodium (Coumadin) 2.5 mg 1X WARF ONCE PO Last administered on 16:22; Start 10/15/16 at 16:00; Stop 10/15/16 at 16:01; Status DC Warfarin Sodium (Coumadin) 2 mg 1X WARF ONCE PO Last administered on 16:22; Start 10/15/16 at 16:00; Stop 10/15/16 at 16:01; Status DC Fluvoxamine Maleate (Luvox) 50 mg HS PO Last administered on 10/21/16 19:37; Start 10/15/16 at 21:00; Stop 10/21/16 at 21:42; Status DC Warfarin Sodium (Coumadin) 4 mg 1X WARF ONCE PO Last administered on 15:34; Start 10/16/16 at 16:00; Stop 10/16/16 at 16:01; Status DC Warfarin Sodium (Coumadin) 2.5 mg 1X WARF ONCE PO Last administered on 14:42; Start 10/17/16 at 16:00; Stop 10/17/16 at 16:01; Status DC Warfarin Sodium (Coumadin) 2 mg 1X WARF ONCE PO Last administered on 14:42; Start 10/17/16 at 16:00; Stop 10/17/16 at 16:01; Status DC Warfarin Sodium (Coumadin) 4 mg Q48H ONCE PO ; Start 10/18/16 at 16:00; Stop at 16:00; Status DC Warfarin Sodium (Coumadin) 2 mg Q48H ONCE PO ; Start 10/19/16 at 16:00; Stop at 16:00; Status DC Warfarin Sodium (Coumadin) 2.5 mg Q48H ONCE PO ; Start 10/19/16 at 16:00; Stop 10/19/16 at 16:00; Status DC Warfarin Sodium (Coumadin) 4 mg Q48H PO Last administered on 10/22/16 16:19; Start 10/18/16 at 16:00 Warfarin Sodium (Coumadin) 2 mg Q48H PO Last administered on 10/23/16 16:40; Start 10/19/16 at 16:00 Warfarin Sodium (Coumadin) 2.5 mg Q48H PO Last administered on 10/23/16 16:39 ; Start 10/19/16 at 16:00 Ferrous Sulfate (Feosol) 325 mg DAILYWBKFT PO Last administered on 10/23/16 08 :08; Start 10/19/16 at 08:00 Haloperidol (Haldol) 5 mg 1X PO Last administered on 10/19/16 09:38; Start at 09:45; Stop 10/22/16 at 08:39; Status DC Lorazepam (Ativan) 0.5 mg DAILY IM Last administered on 10/20/16 10:36; Start 10/19/16 at 09:00; Stop 10/20/16 at 19:46; Status DC Haloperidol Lactate (Haldol) 5 mg DAILY IM Last administered on 10/20/16 10:35 ; Start 10/19/16 at 09:00; Stop 10/20/16 at 19:46; Status DC Haloperidol (Haldol) 5 mg DAILY PO Last administered on 10/21/16 09:00; Start 10/21/16 at 09:00; Stop 10/22/16 at 08:38; Status DC Fluvoxamine Maleate (Luvox) 75 mg HS PO Last administered on 10/23/16 19:39; Start 10/22/16 at 21:00 Haloperidol (Haldol) 5 mg DAILY PO Last administered on 10/23/16 08:08; Start 10/22/16 at 09:00 Active Scripts Active Reported Trazodone Hcl 50 Mg Tablet 50 Mg PO PRN QHS PRN Risperdal (Risperidone) 0.25 Mg Tablet 0.25 Mg PO QHS Risperdal (Risperidone) 0.25 Mg Tablet 0.375 Mg PO DAILY Hydroxyzine Hcl 50 Mg Tablet 50 Mg PO PRN Q2HR PRN Fluvoxamine Maleate 50 Mg Tablet 50 Mg PO QHS Buspirone Hcl 10 Mg Tablet 10 Mg PO TID Coumadin (Warfarin Sodium) 2.5 Mg Tablet 2.5 Mg PO Coumadin (Warfarin Sodium) 2 Mg Tablet 2 Mg PO Depakene (Valproate Sodium) 250 Mg/5 Ml Solution 500 Mg PO BID Zyprexa Zydis (Olanzapine) 5 Mg Tab.rapdis 2.5 Mg PO PRN Q2HR PRN Nystatin 15 Gm Powder 1 Derek TP BID Mirtazapine 15 Mg Tablet 15 Mg PO QHS Analgesic Burns (Methyl Salicylate/Menthol) 28 Gm Oint...g. 1 Derek TP PRN QID PRN Milk Of Magnesia (Magnesium Hydroxide) 400 Mg/5 Ml Oral.susp 2,400 Mg PO PRN QHS PRN Mag-Al Plus Xs Suspension (Mag Hydrox/Al Hydrox/Simeth) 30 Ml Oral.susp 15 Ml PO PRN AFTMEALHC PRN Levothyroxine Sodium 25 Mcg Tablet 12.5 Mcg PO DAILY06 Ferrous Sulfate 325 Mg Tablet 325 Mg PO DAILYWBKFT D3-50 (Cholecalciferol (Vitamin D3)) 50,000 Unit Capsule 50,000 Unit PO WEEKLY Tylenol (Acetaminophen) 325 Mg Tablet 650 Mg PO PRN Q6HRS PRN Therems-M (Multivits,Th W-Fe,Other Min) 1 Each Tablet 1 Each PO DAILY Tamsulosin Hcl 0.4 Mg Cap.er.24h 0.4 Mg PO DAILY Lisinopril 5 Mg Tablet 5 Mg PO DAILY Famotidine 20 Mg Tablet 20 Mg PO DAILY Emsam (Selegiline) 1 Each Patch.td24 1 Each TD DAILY Aspirin 81 Mg Tab.chew 81 Mg PO DAILY Amiodarone Hcl 200 Mg Tablet 100 Mg PO DAILY Depakote (Divalproex Sodium) 250 Mg Tablet.dr 250 Mg PO BID Coumadin (Warfarin Sodium) 4 Mg Tablet 4.5 Mg PO DAILY Ativan (Lorazepam) 0.5 Mg Tablet 0.5 Mg PO PRN BID PRN Imodium A-D (Loperamide HCl) 2 Mg Capsule 2 Mg PO PRN PRN MDD 12 mg Ativan (Lorazepam) 1 Mg Tablet 1 Mg PO BID Buspirone Hcl 7.5 Mg Tablet 7.5 Mg PO BID Diagnosis: Problems: (1) Dementia (2) Encounter for medical screening examination (3) Anxiety disorder (4) Impulse control disorder (5) Dementia, vascular, with depression (6) Dementia, vascular, with delusions (7) Dementia in Alzheimer's disease with depression (8) Dementia in Alzheimer's disease with delusions LINDSAY BROWN MD Oct 23, 2016 20:05
--- NOTE | 2016-10-23 23:32 | NUR ---
Behavior Intervention Response and Plan: BIRP Note: Behavior: Assumed Care of patient, patient located in Day Room at shift change. Patient exhibited the following behavior , Disorganized, Calm, Interactive, Cooperative. Brief assessment on rounds of vital signs, medication needs, lab studies, and pain. Treatment plan problems 1 and 2. Intervention: Patient assessed and the following interventions initiated safety checks 15 Minute Checks Cognitive Assessment , Head to toe Assessment , Medications. Response: After interactions and interventions patient responded in the following manner, Disorganized , Cooperative ,Compliant. Continue to assess behaviors and condition will continue to monitor throughout the shift as needed. 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 Continue to assess patient for changes in above assessment. Monitor for medication needs, pain, and safety concerns. Hourly rounding performed to ensure safe environment.
--- NOTE | 2016-10-24 04:23 | PN ---
DATE: 10/23/2016 This note covers elements not covered in my initial note of 10/23/2016. I met with the patient in the evening of 10/23/2016, compliant with his medications, at times agitated, exit seeking. Received Zyprexa p.r.n. at 1315, did better after that. Little suspicious of medications. I processed this with him at length individually and he was pleasant, verbal, oblivious the way he was. I informed him he was in [place], did not know where it was, but when I told him it was closer to [place], he was able to recognize that, smiling, saying he needed a ride home. REVIEW OF SYSTEMS: No CV, , pulmonary, eye, ENT system symptoms on review. Reliability poor. MENTAL STATUS EXAM: Oriented to himself. Insight, judgment, recent and remote memory, attention, concentration, fund of knowledge poor, consistent with his diagnosis mentioned in my initial note. PLAN: Continue psychotropics mentioned in my initial note. Valproic acid level last check is 46, slightly subtherapeutic, but clinically adequate. MAN Phoenix BROWN MD DR: JEREL/tavo JOB#: [id number] / [id number]
[2016-10-24] MEDS: LEVOTHYROXINE 25 MCG TABLET. PO SCH (05:28)
[2016-10-24 05:55] VITALS: BP 134/85
[2016-10-24] MEDS: VALPROATE ACID 250 MG/5 ML ORAL SOLUTION PO SCH ×2 (08:08→19:11)
[2016-10-24] MEDS: AMIODARONE HCL 200 MG TABLET PO SCH (08:09)
[2016-10-24] MEDS: MULTIVITAMIN with MINERAL TABLET. PO SCH (08:09)
[2016-10-24] MEDS: HALOPERIDOL 5 MG TABLET PO SCH (08:09)
[2016-10-24] MEDS: risperiDONE 0.25 MG TABLET. PO SCH ×2 (08:10→19:17)
[2016-10-24] MEDS: busPIRone 10 MG TABLET. PO SCH ×3 (08:11→19:11)
[2016-10-24] MEDS: LISINOPRIL 5 MG TABLET. PO SCH (08:11)
[2016-10-24] MEDS: FERROUS SULFATE 325 MG TABLET PO SCH (08:11)
[2016-10-24] MEDS: ASPIRIN 81 MG TAB.CHEW PO SCH (08:11)
[2016-10-24] MEDS: FAMOTIDINE 20 MG TABLET PO SCH (08:11)
[2016-10-24] MEDS: TAMSULOSIN 0.4 MG CAP.ER.24H. PO SCH (08:11)
[2016-10-24] MEDS: NYSTATIN TOPICAL POWDER 30GM BOTTLE. TP SCH ×2 (08:12→19:18)
--- NOTE | 2016-10-24 09:00 | NUR ---
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 Will continue to monitor for increased agitation.
--- NOTE | 2016-10-24 09:01 | NUR ---
Behavior Intervention Response and Plan: BIRP Note: Behavior: Assumed Care of patient, patient located in Hallway at shift change. Patient exhibited the following behavior Wandering, Restless, Disorganized. Brief assessment on rounds of vital signs, medication needs, lab studies, and pain. Treatment plan problems 1 and 2. Intervention: Patient assessed and the following interventions initiated safety checks 15 Minute Checks Cognitive Assessment , Head to toe Assessment , Medications. Response: After interactions and interventions patient responded in the following manner, Restless , Disorganized ,Compliant. Continue to assess behaviors and condition will continue to monitor throughout the shift as needed. 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 Continue to assess patient for changes in above assessment. Monitor for medication needs, pain, and safety concerns. Hourly rounding performed to ensure safe environment.
--- NOTE | 2016-10-24 10:30 | NUR ---
THERAPEUTIC RECREATION GROUP NOTE TITLE :[employer] ACTIVITY : Music GOAL : Increase socialization, elevate mood, stimulate memory DURATION : 60 minutes RESPONSE : No participation.
--- NOTE | 2016-10-24 14:45 | NUR ---
THERAPEUTIC RECREATION GROUP NOTE TITLE :[employer]oring [employer] ACTIVITY : Arts and Crafts GOAL : Reduce stress, anxiety. Increase creativity and fine motor functioning DURATION : 60 minutes RESPONSE : No participation.
[2016-10-24 16:10] VITALS: BP 114/76
[2016-10-24] MEDS: WARFARIN 4 MG TABLET. PO SCH (16:29)
[2016-10-24] MEDS: MIRTAZAPINE 15 MG TABLET PO SCH (19:11)
[2016-10-24] MEDS: LORazepam 0.5 MG TABLET PO PRN (19:14)
--- NOTE | 2016-10-24 20:00 | NUR ---
Behavior Intervention Response and Plan: BIRP Note: Behavior: Assumed Care of patient, patient located in Hallway/Day Room at shift change. Patient exhibited the following behavior Wandering, Restless, Disorganized, Anxious, Paranoid. Brief assessment on rounds of vital signs, medication needs, lab studies, and pain. Treatment plan problems 1 and 2. Intervention: Patient assessed and the following interventions initiated safety checks 15 Minute Checks Cognitive Assessment , Head to toe Assessment , Medications, Allowed to speak with on phone. Response: After interactions and interventions patient responded in the following manner, Calm , Disorganized ,Compliant, Cooperative. Continue to assess behaviors and condition will continue to monitor throughout the shift as needed. Plan: Continue to monitor Master Treatment Plan for patient's progress toward short term goals of Decreased Agitation, Decreased Aggression, senior care goals to return to previous living setting vs placement. Continue to assess patient for changes in above assessment. Monitor for medication needs, pain, and safety concerns. Hourly rounding performed to ensure safe environment.
--- NOTE | 2016-10-24 20:27 | PDOC ---
Exam Blake Demential Exam: Blake Note: Please also refer to the separate dictated note~for this date of service dictated separately.~Patient seen individually. Discussed the patient with Nursing staff reviewed the chart.~Reviewed interim history and current functioning. Reviewed vital signs,~Labs/ Radiology~and current medications noted below. Continue current treatment with the changes noted in the dictated addendum note Assessment: Vital Signs: Vital Signs Date Time Temp Pulse Resp B/P (MAP) Pulse Ox O2 Delivery O2 Flow Rate FiO2 10/24/16 16:10 97.6 70 18 114/76 (89) 97 Room Air I&O Intake and Output 10/24/16 07:00 Intake Total 1200 ml Balance 1200 ml Intake Oral 1200 ml Current Medications: Meds: Current Medications Acetaminophen (Tylenol) 650 mg PRN Q6HRS PRN PO PAIN / TEMP Last administered on 09/15/16 20:02; Start 09/12/16 at 19:15 Multi-Ingredient Ointment (Analgesic [place]) 1 derek PRN QID PRN TP MUSCLE PAIN; Start 09/12/16 at 19:15 Al Hydroxide/Mg Hydroxide (Mylanta Plus Xs) 15 ml PRN AFTMEALHC PRN PO DYSPEPSIA; Start 09/12/16 at 19:15 Magnesium Hydroxide (Milk Of Magnesia) 2,400 mg PRN QHS PRN PO CONSTIPATION; Start 09/12/16 at 19:15 Divalproex Sodium (Depakote) 250 mg BID PO Last administered on 09/20/16 08:38 ; Start 09/12/16 at 21:00; Stop 09/20/16 at 10:41; Status DC Lorazepam (Ativan) 0.5 mg PRN BID PRN PO ANXIETY / AGITATION Last administered on 10/07/16 19:22; Start 09/12/16 at 19:45; Stop 10/07/16 at 20:59; Status DC Lorazepam (Ativan) 1 mg BID PO Last administered on 09/17/16 08:49; Start 02/19 at 21:00; Stop 09/17/16 at 18:05; Status DC Selegiline HCl (Emsam) 1 patch DAILY TD ; Start 09/13/16 at 09:00; Stop at 18:35; Status DC Buspirone HCl (Buspar) 7.5 mg BID PO Last administered on 09/27/16 09:12; Start 09/12/16 at 21:00; Stop 09/27/16 at 10:31; Status DC Amiodarone HCl (Cordarone) 100 mg DAILY PO Last administered on 10/24/16 08:09 ; Start 09/13/16 at 09:00 Aspirin (Children'S Aspirin) 81 mg DAILY PO Last administered on 10/24/16 08: 11; Start 09/13/16 at 09:00 Famotidine (Pepcid) 20 mg DAILY PO Last administered on 10/24/16 08:11; Start 09/13/16 at 09:00 Lisinopril (Prinivil) 5 mg DAILY PO Last administered on 10/24/16 08:11; Start 09/13/16 at 09:00 Loperamide HCl (Imodium) 2 mg PRN Q4HRS PRN PO DIARRHEA; Start 09/12/16 at 19: 45 Tamsulosin HCl (Flomax) 0.4 mg DAILY PO Last administered on 10/24/16 08:11; Start 09/13/16 at 09:00 Warfarin Sodium (Coumadin) 2.5 mg DAILY16 PO Last administered on 09/14/16 16: 05; Start 09/13/16 at 16:00; Stop 09/15/16 at 15:03; Status DC Multivitamins/ Calcium (Thera-M Plus) 1 tab DAILY PO Last administered on 08:09; Start 09/13/16 at 09:00 Warfarin Sodium (Coumadin) 2 mg DAILY16 PO Last administered on 09/14/16 16:06 ; Start 09/13/16 at 16:00; Stop 09/15/16 at 15:02; Status DC Warfarin Sodium (Coumadin Per Pharmacy) 1 each PRN DAILY PRN MC SEE COMMENTS Last administered on 10/23/16 08:43; Start 09/13/16 at 03:15 Vitamin D (Vitamin D3) 50,000 unit WEEKLY PO Last administered on 10/19/16 13: 09; Start 09/14/16 at 09:00 Selegiline HCl (Eldepryl) 5 mg DAILY PO Last administered on 10/07/16 09:39; Start 09/14/16 at 09:00; Stop 10/07/16 at 20:59; Status DC Trazodone HCl (Desyrel) 50 mg PRN QHS PRN PO INSOMNIA, MAY REPEAT X1 Last administered on 10/22/16 19:50; Start 09/14/16 at 19:15 Nystatin (Nystop) 1 derek BID TP Last administered on 10/24/16 19:18; Start at 09:00 Nystatin (Nystop) 30 derek STK-MED ONCE TP Last administered on 09/14/16 21:27; Start 09/14/16 at 21:27; Stop 09/14/16 at 21:28; Status DC Warfarin Sodium (Coumadin) 3 mg 1X WARF ONCE PO Last administered on 15:48; Start 09/15/16 at 16:00; Stop 09/15/16 at 16:01; Status DC Warfarin Sodium (Coumadin) 2.5 mg 1X ONCE PO Last administered on 09/15/16 15 :47; Start 09/15/16 at 15:15; Stop 09/15/16 at 15:17; Status DC Warfarin Sodium (Coumadin) 5 mg 1X WARF ONCE PO Last administered on 18:16; Start 09/16/16 at 16:00; Stop 09/16/16 at 16:01; Status DC Warfarin Sodium (Coumadin) 2 mg 1X WARF ONCE PO Last administered on 16:02; Start 09/17/16 at 16:00; Stop 09/17/16 at 16:01; Status DC Warfarin Sodium (Coumadin) 2.5 mg 1X WARF ONCE PO Last administered on 16:03; Start 09/17/16 at 16:00; Stop 09/17/16 at 16:01; Status DC Lorazepam (Ativan) 0.5 mg TID PO Last administered on 09/20/16 20:45; Start at 21:00; Stop 09/20/16 at 21:00; Status DC Lorazepam (Ativan) 0.5 mg BID PO Last administered on 09/24/16 19:38; Start at 09:00; Stop 09/24/16 at 21:01; Status DC Lorazepam (Ativan) 0.5 mg DAILY PO Last administered on 09/27/16 09:15; Start 09/25/16 at 09:00; Stop 09/27/16 at 10:39; Status DC Warfarin Sodium (Coumadin) 2.5 mg 1X WARF ONCE PO Last administered on 14:58; Start 09/18/16 at 16:00; Stop 09/18/16 at 16:01; Status DC Warfarin Sodium (Coumadin) 2 mg 1X WARF ONCE PO Last administered on 14:59; Start 09/18/16 at 16:00; Stop 09/18/16 at 16:01; Status DC Sertraline HCl (Zoloft) 25 mg DAILY PO Last administered on 09/24/16 07:43; Start 09/19/16 at 09:00; Stop 09/24/16 at 18:00; Status DC Warfarin Sodium (Coumadin - No Dose Today) 1 each 1X WARF ONCE MC Last administered on 09/19/16 14:14; Start 09/19/16 at 16:00; Stop 09/19/16 at 16:02 ; Status DC Quetiapine Fumarate (SEROquel) 25 mg QHS PO Last administered on 10/03/16 19: 12; Start 09/20/16 at 21:00; Stop 10/04/16 at 10:51; Status DC Warfarin Sodium (Coumadin) 2.5 mg 1X WARF ONCE PO Last administered on 16:31; Start 09/20/16 at 16:00; Stop 09/20/16 at 16:01; Status DC Valproic Acid (Depakene) 250 mg BID PO Last administered on 09/25/16 09:29; Start 09/20/16 at 21:00; Stop 09/25/16 at 18:06; Status DC Warfarin Sodium (Coumadin) 2.5 mg 1X WARF ONCE PO Last administered on 16:02; Start 09/21/16 at 16:00; Stop 09/21/16 at 16:01; Status DC Warfarin Sodium (Coumadin) 1 mg 1X WARF ONCE PO Last administered on 16:02; Start 09/21/16 at 16:00; Stop 09/21/16 at 16:01; Status DC Mirtazapine (Remeron) 7.5 mg QHS PO Last administered on 09/26/16 19:21; Start 09/21/16 at 21:00; Stop 09/27/16 at 10:31; Status DC Warfarin Sodium (Coumadin) 4 mg 1X WARF ONCE PO Last administered on 16:31; Start 09/22/16 at 16:00; Stop 09/22/16 at 16:01; Status DC Warfarin Sodium (Coumadin) 4 mg 1X WARF ONCE PO Last administered on 15:42; Start 09/23/16 at 16:00; Stop 09/23/16 at 16:01; Status DC Warfarin Sodium (Coumadin) 4 mg DAILY16 PO Last administered on 09/25/16 16:00 ; Start 09/24/16 at 16:00; Stop 09/26/16 at 08:25; Status DC Sertraline HCl (Zoloft) 50 mg DAILY PO Last administered on 10/03/16 08:52; Start 09/25/16 at 09:00; Stop 10/03/16 at 14:04; Status DC Valproic Acid (Depakene) 375 mg BID PO Last administered on 10/03/16 08:53; Start 09/25/16 at 21:00; Stop 10/03/16 at 18:33; Status DC Warfarin Sodium (Coumadin) 2 mg DAILY16 PO Last administered on 10/08/16 16:21 ; Start 09/26/16 at 16:00; Stop 10/08/16 at 16:53; Status DC Warfarin Sodium (Coumadin) 2.5 mg DAILY16 PO Last administered on 10/08/16 16: 21; Start 09/26/16 at 16:00; Stop 10/08/16 at 16:53; Status DC Quetiapine Fumarate (SEROquel) 12.5 mg BID92 PO Last administered on 09/30/16 13:36; Start 09/27/16 at 09:00; Stop 09/30/16 at 22:00; Status DC Buspirone HCl (Buspar) 10 mg TID PO Last administered on 10/24/16 19:11; Start 09/27/16 at 14:00 Mirtazapine (Remeron) 15 mg QHS PO Last administered on 10/24/16 19:11; Start 09/27/16 at 21:00 Lorazepam (Ativan) 0.5 mg DAILY PO Last administered on 10/17/16 07:51; Start 09/28/16 at 09:00; Stop 10/17/16 at 17:00; Status DC Quetiapine Fumarate (SEROquel) 12.5 mg 0900,1400,1700 PO Last administered on 08:52; Start 10/01/16 at 09:00; Stop 10/03/16 at 14:04; Status DC Olanzapine (ZyPREXA ZYDIS) 2.5 mg PRN Q2HR PRN PO PSYCHOSIS Last administered on 10/23/16 13:17; Start 10/03/16 at 10:00 Quetiapine Fumarate (SEROquel) 25 mg 0900,1400,1700 PO Last administered on 10/04 10:01; Start 10/03/16 at 17:00; Stop 10/04/16 at 10:51; Status DC Hydroxyzine HCl (Atarax) 50 mg PRN Q2HR PRN PO ANXIETY / AGITATION Last administered on 10/06/16 11:50; Start 10/03/16 at 14:15 Valproic Acid (Depakene) 500 mg BID PO Last administered on 10/24/16 19:11; Start 10/03/16 at 21:00 Risperidone (RisperDAL) 0.25 mg BID PO Last administered on 10/09/16 09:01; Start 10/04/16 at 21:00; Stop 10/09/16 at 18:21; Status DC Levothyroxine Sodium (Synthroid) 12.5 mcg DAILY06 PO Last administered on 05:28; Start 10/07/16 at 06:00 Lorazepam (Ativan) 0.25 mg PRN Q2HR PRN PO ANXIETY / AGITATION Last administered on 10/24/16 19:14; Start 10/07/16 at 21:15 Risperidone (RisperDAL) 0.375 mg DAILY PO Last administered on 10/24/16 08:10 ; Start 10/10/16 at 09:00 Risperidone (RisperDAL) 0.25 mg QHS PO Last administered on 10/24/16 19:17; Start 10/09/16 at 21:00 Warfarin Sodium (Coumadin - No Dose Today) 1 each 1X WARF ONCE MC Last administered on 10/10/16 14:23; Start 10/10/16 at 16:00; Stop 10/10/16 at 16:01; Status DC Haloperidol Lactate (Haldol) 5 mg DAILY IM Last administered on 10/12/16 08:42 ; Start 10/10/16 at 08:00; Stop 10/12/16 at 18:58; Status DC Lorazepam (Ativan) 0.5 mg DAILY IM Last administered on 10/12/16 08:43; Start 10/10/16 at 08:00; Stop 10/12/16 at 18:43; Status DC Warfarin Sodium (Coumadin) 4 mg DAILY16 PO Last administered on 10/14/16 16:00 ; Start 10/11/16 at 16:00; Stop 10/15/16 at 09:01; Status DC Fluvoxamine Maleate (Luvox) 25 mg HS PO Last administered on 10/14/16 19:23; Start 10/11/16 at 21:00; Stop 10/15/16 at 17:44; Status DC Haloperidol (Haldol) 2.5 mg DAILY PO Last administered on 10/15/16 08:47; Start 10/13/16 at 09:00; Stop 10/15/16 at 19:00; Status DC Warfarin Sodium (Coumadin) 2.5 mg 1X WARF ONCE PO Last administered on 16:22; Start 10/15/16 at 16:00; Stop 10/15/16 at 16:01; Status DC Warfarin Sodium (Coumadin) 2 mg 1X WARF ONCE PO Last administered on 16:22; Start 10/15/16 at 16:00; Stop 10/15/16 at 16:01; Status DC Fluvoxamine Maleate (Luvox) 50 mg HS PO Last administered on 10/21/16 19:37; Start 10/15/16 at 21:00; Stop 10/21/16 at 21:42; Status DC Warfarin Sodium (Coumadin) 4 mg 1X WARF ONCE PO Last administered on 15:34; Start 10/16/16 at 16:00; Stop 10/16/16 at 16:01; Status DC Warfarin Sodium (Coumadin) 2.5 mg 1X WARF ONCE PO Last administered on 14:42; Start 10/17/16 at 16:00; Stop 10/17/16 at 16:01; Status DC Warfarin Sodium (Coumadin) 2 mg 1X WARF ONCE PO Last administered on 14:42; Start 10/17/16 at 16:00; Stop 10/17/16 at 16:01; Status DC Warfarin Sodium (Coumadin) 4 mg Q48H ONCE PO ; Start 10/18/16 at 16:00; Stop at 16:00; Status DC Warfarin Sodium (Coumadin) 2 mg Q48H ONCE PO ; Start 10/19/16 at 16:00; Stop at 16:00; Status DC Warfarin Sodium (Coumadin) 2.5 mg Q48H ONCE PO ; Start 10/19/16 at 16:00; Stop 10/19/16 at 16:00; Status DC Warfarin Sodium (Coumadin) 4 mg Q48H PO Last administered on 10/24/16 16:29; Start 10/18/16 at 16:00 Warfarin Sodium (Coumadin) 2 mg Q48H PO Last administered on 10/23/16 16:40; Start 10/19/16 at 16:00 Warfarin Sodium (Coumadin) 2.5 mg Q48H PO Last administered on 10/23/16 16:39 ; Start 10/19/16 at 16:00 Ferrous Sulfate (Feosol) 325 mg DAILYWBKFT PO Last administered on 10/24/16 08 :11; Start 10/19/16 at 08:00 Haloperidol (Haldol) 5 mg 1X PO Last administered on 10/19/16 09:38; Start at 09:45; Stop 10/22/16 at 08:39; Status DC Lorazepam (Ativan) 0.5 mg DAILY IM Last administered on 10/20/16 10:36; Start 10/19/16 at 09:00; Stop 10/20/16 at 19:46; Status DC Haloperidol Lactate (Haldol) 5 mg DAILY IM Last administered on 10/20/16 10:35 ; Start 10/19/16 at 09:00; Stop 10/20/16 at 19:46; Status DC Haloperidol (Haldol) 5 mg DAILY PO Last administered on 10/21/16 09:00; Start 10/21/16 at 09:00; Stop 10/22/16 at 08:38; Status DC Fluvoxamine Maleate (Luvox) 75 mg HS PO Last administered on 10/24/16 19:12; Start 10/22/16 at 21:00 Haloperidol (Haldol) 5 mg DAILY PO Last administered on 10/24/16 08:09; Start 10/22/16 at 09:00 Active Scripts Active Reported Trazodone Hcl 50 Mg Tablet 50 Mg PO PRN QHS PRN Risperdal (Risperidone) 0.25 Mg Tablet 0.25 Mg PO QHS Risperdal (Risperidone) 0.25 Mg Tablet 0.375 Mg PO DAILY Hydroxyzine Hcl 50 Mg Tablet 50 Mg PO PRN Q2HR PRN Fluvoxamine Maleate 50 Mg Tablet 50 Mg PO QHS Buspirone Hcl 10 Mg Tablet 10 Mg PO TID Coumadin (Warfarin Sodium) 2.5 Mg Tablet 2.5 Mg PO Coumadin (Warfarin Sodium) 2 Mg Tablet 2 Mg PO Depakene (Valproate Sodium) 250 Mg/5 Ml Solution 500 Mg PO BID Zyprexa Zydis (Olanzapine) 5 Mg Tab.rapdis 2.5 Mg PO PRN Q2HR PRN Nystatin 15 Gm Powder 1 Derek TP BID Mirtazapine 15 Mg Tablet 15 Mg PO QHS Analgesic [place] (Methyl Salicylate/Menthol) 28 Gm Oint...g. 1 Derek TP PRN QID PRN Milk Of Magnesia (Magnesium Hydroxide) 400 Mg/5 Ml Oral.susp 2,400 Mg PO PRN QHS PRN Mag-Al Plus Xs Suspension (Mag Hydrox/Al Hydrox/Simeth) 30 Ml Oral.susp 15 Ml PO PRN AFTMEALHC PRN Levothyroxine Sodium 25 Mcg Tablet 12.5 Mcg PO DAILY06 Ferrous Sulfate 325 Mg Tablet 325 Mg PO DAILYWBKFT D3-50 (Cholecalciferol (Vitamin D3)) 50,000 Unit Capsule 50,000 Unit PO WEEKLY Tylenol (Acetaminophen) 325 Mg Tablet 650 Mg PO PRN Q6HRS PRN Therems-M (Multivits,Th W-Fe,Other Min) 1 Each Tablet 1 Each PO DAILY Tamsulosin Hcl 0.4 Mg Cap.er.24h 0.4 Mg PO DAILY Lisinopril 5 Mg Tablet 5 Mg PO DAILY Famotidine 20 Mg Tablet 20 Mg PO DAILY Emsam (Selegiline) 1 Each Patch.td24 1 Each TD DAILY Aspirin 81 Mg Tab.chew 81 Mg PO DAILY Amiodarone Hcl 200 Mg Tablet 100 Mg PO DAILY Depakote (Divalproex Sodium) 250 Mg Tablet.dr 250 Mg PO BID Coumadin (Warfarin Sodium) 4 Mg Tablet 4.5 Mg PO DAILY Ativan (Lorazepam) 0.5 Mg Tablet 0.5 Mg PO PRN BID PRN Imodium A-D (Loperamide HCl) 2 Mg Capsule 2 Mg PO PRN PRN MDD 12 mg Ativan (Lorazepam) 1 Mg Tablet 1 Mg PO BID Buspirone Hcl 7.5 Mg Tablet 7.5 Mg PO BID Diagnosis: Problems: (1) Dementia (2) Encounter for medical screening examination (3) Anxiety disorder (4) Impulse control disorder (5) Dementia, vascular, with depression (6) Dementia, vascular, with delusions (7) Dementia in Alzheimer's disease with depression (8) Dementia in Alzheimer's disease with delusions LINDSAY BROWN MD Oct 24, 2016 20:27
--- NOTE | 2016-10-25 01:17 | PN ---
DATE: 10/24/2016 PSYCHIATRIC PROGRESS NOTE This note covers elements not covered in my initial note. SUBJECTIVE: The patient was seen individually evening of 10/24/2016. Per nursing report, he remains confused, but is pleasant and cooperative. REVIEW OF SYSTEMS: No CV, , pulmonary, eye, ENT system symptoms on review. Reliability poor. MENTAL STATUS EXAM: Oriented to himself. Insight, judgment, recent and remote memory, attention, concentration, fund of knowledge poor, consistent with his diagnosis mentioned in my initial note. PLAN: No change from the psychotropics mentioned in my initial note. MAN Phoenix BROWN MD DR: JEREL/tavo JOB#: [id number] / [id number]
[2016-10-25 06:16] VITALS: BP 143/87
[2016-10-25] MEDS: LEVOTHYROXINE 25 MCG TABLET. PO SCH (06:43)
[2016-10-25] MEDS: HALOPERIDOL 5 MG TABLET PO SCH (08:01)
[2016-10-25] MEDS: FERROUS SULFATE 325 MG TABLET PO SCH (08:01)
[2016-10-25] MEDS: busPIRone 10 MG TABLET. PO SCH ×3 (08:01→19:45)
[2016-10-25] MEDS: FAMOTIDINE 20 MG TABLET PO SCH (08:01)
[2016-10-25] MEDS: ASPIRIN 81 MG TAB.CHEW PO SCH (08:01)
[2016-10-25] MEDS: MULTIVITAMIN with MINERAL TABLET. PO SCH (08:01)
[2016-10-25] MEDS: LISINOPRIL 5 MG TABLET. PO SCH (08:02)
[2016-10-25] MEDS: AMIODARONE HCL 200 MG TABLET PO SCH (08:03)
[2016-10-25] MEDS: risperiDONE 0.25 MG TABLET. PO SCH ×2 (08:03→19:46)
[2016-10-25] MEDS: NYSTATIN TOPICAL POWDER 30GM BOTTLE. TP SCH ×2 (08:04→19:47)
[2016-10-25] MEDS: VALPROATE ACID 250 MG/5 ML ORAL SOLUTION PO SCH ×2 (08:04→19:45)
[2016-10-25] MEDS: TAMSULOSIN 0.4 MG CAP.ER.24H. PO SCH (08:04)
[2016-10-25 09:32] LABS: BASO % 1 % (0-3); EOS # 0.2 x10^3/uL (0.0-0.7); EOS % 3 % (0-3); HEMATOCRIT 37.9 % (39.0-53.0); HEMOGLOBIN 12.4 g/dL (13.0-17.5); LYMPH # 1.1 x10^3/uL (1.0-4.8); LYMPH % 17 % (24-48); MEAN CORPUSCULAR HEMOGLOBIN 29 pg (25-35); MEAN CORPUSCULAR HGB CONC 33 g/dL (31-37); MEAN CORPUSCULAR VOLUME 88 fL (79-100); MONO # 0.7 x10^3/uL (0.0-1.1); MONO % 10 % (0-9); NEUT # 4.6 x10^3uL (1.8-7.7); NEUT % 70 % (31-73); PLATELET COUNT 152 x10^3/uL (140-400); RED BLOOD COUNT 4.32 x10^6/uL (4.30-5.70); RED CELL DISTRIBUTION WIDTH 14.9 % (11.5-14.5); WHITE BLOOD COUNT 6.6 x10^3/uL (4.0-11.0)
[2016-10-25 09:50] LABS: ALBUMIN 3.3 g/dL (3.4-5.0); ALBUMIN/GLOBULIN RATIO 0.9 (1.0-1.7); CALCIUM 8.6 mg/dL (8.5-10.1); CREATININE 1.2 mg/dL (0.7-1.3); GFR 59.2; TOTAL BILIRUBIN 0.8 mg/dL (0.2-1.0); TOTAL PROTEIN 7.1 g/dL (6.4-8.2)
--- NOTE | 2016-10-25 09:57 | NUR ---
Behavior Intervention Response and Plan: BIRP Note: Behavior: Assumed Care of patient, patient located in Dining Room at shift change. Patient exhibited the following behavior Calm, Disorganized, Delusions. Brief assessment on rounds of vital signs, medication needs, lab studies, and pain. Treatment plan problems 1-2. Intervention: Patient assessed and the following interventions initiated safety checks 15 Minute Checks Cognitive Assessment , Head to toe Assessment , Medications. Response: After interactions and interventions patient responded in the following manner, Disorganized , Delusions ,Drowsy. Continue to assess behaviors and condition will continue to monitor throughout the shift as needed. Plan: Continue to monitor Master Treatment Plan for patient's progress toward short term goals of Decreased Agitation, Improved Mood, alf goals to return to previous living setting vs placement. Continue to assess patient for changes in above assessment. Monitor for medication needs, pain, and safety concerns. Hourly rounding performed to ensure safe environment.
--- NOTE | 2016-10-25 10:40 | NUR ---
PAULINE faxed updated clinicals to [facility] requesting dc transport to be arranged for Fri.
--- NOTE | 2016-10-25 11:03 | NUR ---
PAULINE spoke w/Pt's , Dana regarding dc plans for Saturday. PAULINE will call to verify transport details once set by [facility].
--- NOTE | 2016-10-25 12:15 | NUR ---
INSULATION BLANKET MAKER was in her office and overheard a man's voice in the hallway, firmly threatening someone to get away from him or else he would "black your eyes." He said he didn't want to but he would. INSULATION BLANKET MAKER found Pt. outside the closed dining room with a female patient near him. police department secretary walked with female patient down the choe, away from Pt. Pt. immediately apologized for having to say what he said and raising his voice but went on to explain how that same female patient had been bothering him several times today. INSULATION BLANKET MAKER listened and explained the female patient's confusion. INSULATION BLANKET MAKER and Pt. discussed different ways to handle the situation if it came up again. After the discussion, Pt. decided to sit in the dining room for awhile. INSULATION BLANKET MAKER opened the dining room to allow him to do so. INSULATION BLANKET MAKER reported this encounter to Pt's nurse and social media marketing specialist. Will continue to monitor.
--- NOTE | 2016-10-25 13:00 | NUR ---
ELECTRIC DEICER INSPECTOR found Pt. siting in his room, with the door closed. He was calm and greeted ELECTRIC DEICER INSPECTOR with a smile. He asked when the weekend started and said he wanted to go home. He commented about his closet being locked and was worried he wasn't going to get his belongings when he left, he didn't know if anything was even in his closet. ELECTRIC DEICER INSPECTOR opened his closet and showed him his bag of belongings and reassured him he could get in there, with help, if he needed anything. Pt. repeated his concerns and needed additional reassurance. He was agreeable when asked to walk to the day room. Along the walk he said he should better get home because he needed to work some cattle. The two talked about all that entailed and Pt. smiled when explaining.
--- NOTE | 2016-10-25 14:15 | NUR ---
THERAPEUTIC RECREATION GROUP NOTE TITLE :Radio Hour: [employer] Comedy Show ACTIVITY : Cognitive stimulation GOAL : Maintain or improve cognitive functioning, memory, imagination DURATION : 45 Minutes RESPONSE : Full participation. Pt. sat with the group the entire time. He was calm and quiet, occasionally chuckled at the radio story. A female patient sitting next to him started falling asleep and leaning towards Pt. and eventually on his shoulder. TEA TREE FARM WORKER noticed Pt. sitting quietly but had an increased breathing rate. TEA TREE FARM WORKER woke female patient and moved her to the center. Pt. sat back in his seat. This happened again and Pt. stood up next to the seat. He was given a chair and sat quietly. Before the radio show, Pt. tossed a sandbag shaped as a fish into an inflatable shark mouth. He smiled often and participated after some encouragement.
--- NOTE | 2016-10-25 15:18 | NUR ---
[facility] Social Work Discharge Planning Form Patient Name ABBEY MATHIS Admit Date: 09/12/16 DISCHARGE PLAN Discharge Destination: return to [facility] Assessment: completed Transportation: Facility to waste picker 10/26/16 at 11:00 DISCHARGE TO FACILITY [facility]: [facility] Address: [address] [place] [address] Contact Name: PCP: at facility w/in 10-12 days of dc Psychiatrist: at facility w/in 10-12 days of dc
[2016-10-25 16:54] VITALS: BP 120/91
[2016-10-25] MEDS: WARFARIN 2.5 MG TABLET. PO SCH (17:29)
[2016-10-25] MEDS: WARFARIN 2 MG TABLET. PO SCH (17:29)
[2016-10-25] MEDS: MIRTAZAPINE 15 MG TABLET PO SCH (19:45)
--- NOTE | 2016-10-25 19:55 | PDOC ---
Exam Blake Demential Exam: Blake Note: Please also refer to the separate dictated note~for this date of service dictated separately.~Patient seen individually. Discussed the patient with Nursing staff reviewed the chart.~Reviewed interim history and current functioning. Reviewed vital signs,~Labs/ Radiology~and current medications noted below. Continue current treatment with the changes noted in the dictated addendum note Assessment: Vital Signs: Vital Signs Date Time Temp Pulse Resp B/P (MAP) Pulse Ox O2 Delivery O2 Flow Rate FiO2 10/25/16 16:54 98.0 64 18 120/91 (101) 93 10/24/16 16:10 Room Air I&O Intake and Output 10/25/16 07:00 Intake Total 1440 ml Balance 1440 ml Intake Oral 1440 ml Labs: Laboratory Tests Test 10/25/16 09:00 White Blood Count 6.6 x10^3/uL (4.0-11.0) Red Blood Count 4.32 x10^6/uL (4.30-5.70) Hemoglobin 12.4 g/dL (13.0-17.5) L Hematocrit 37.9 % (39.0-53.0) L Mean Corpuscular Volume 88 fL (79-100) Mean Corpuscular Hemoglobin 29 pg (25-35) Mean Corpuscular Hemoglobin Concent 33 g/dL (31-37) Red Cell Distribution Width 14.9 % (11.5-14.5) H Platelet Count 152 x10^3/uL (140-400) Neutrophils (%) (Auto) 70 % (31-73) Lymphocytes (%) (Auto) 17 % (24-48) L Monocytes (%) (Auto) 10 % (0-9) H Eosinophils (%) (Auto) 3 % (0-3) Basophils (%) (Auto) 1 % (0-3) Neutrophils # (Auto) 4.6 x10^3uL (1.8-7.7) Lymphocytes # (Auto) 1.1 x10^3/uL (1.0-4.8) Monocytes # (Auto) 0.7 x10^3/uL (0.0-1.1) Eosinophils # (Auto) 0.2 x10^3/uL (0.0-0.7) Basophils # (Auto) 0.0 x10^3/uL (0.0-0.2) Sodium Level 140 mmol/L (136-145) Potassium Level 4.0 mmol/L (3.5-5.1) Chloride Level 105 mmol/L (98-107) Carbon Dioxide Level 27 mmol/L (21-32) Anion Gap 8 (6-14) Blood Urea Nitrogen 26 mg/dL (8-26) Creatinine 1.2 mg/dL (0.7-1.3) Estimated GFR (Cockcroft-Gault) 59.2 BUN/Creatinine Ratio 22 (6-20) H Glucose Level 112 mg/dL (70-99) H Calcium Level 8.6 mg/dL (8.5-10.1) Total Bilirubin 0.8 mg/dL (0.2-1.0) Aspartate Amino Transferase (AST) 33 U/L (15-37) Alanine Aminotransferase (ALT) 21 U/L (16-63) Alkaline Phosphatase 51 U/L (46-116) Total Protein 7.1 g/dL (6.4-8.2) Albumin 3.3 g/dL (3.4-5.0) L Albumin/Globulin Ratio 0.9 (1.0-1.7) L Current Medications: Meds: Current Medications Acetaminophen (Tylenol) 650 mg PRN Q6HRS PRN PO PAIN / TEMP Last administered on 09/15/16 20:02; Start 09/12/16 at 19:15 Multi-Ingredient Ointment (Analgesic Gardiner) 1 derek PRN QID PRN TP MUSCLE PAIN; Start 09/12/16 at 19:15 Al Hydroxide/Mg Hydroxide (Mylanta Plus Xs) 15 ml PRN AFTMEALHC PRN PO DYSPEPSIA; Start 09/12/16 at 19:15 Magnesium Hydroxide (Milk Of Magnesia) 2,400 mg PRN QHS PRN PO CONSTIPATION; Start 09/12/16 at 19:15 Divalproex Sodium (Depakote) 250 mg BID PO Last administered on 09/20/16 08:38 ; Start 09/12/16 at 21:00; Stop 09/20/16 at 10:41; Status DC Lorazepam (Ativan) 0.5 mg PRN BID PRN PO ANXIETY / AGITATION Last administered on 10/07/16 19:22; Start 09/12/16 at 19:45; Stop 10/07/16 at 20:59; Status DC Lorazepam (Ativan) 1 mg BID PO Last administered on 09/17/16 08:49; Start 02/19 at 21:00; Stop 09/17/16 at 18:05; Status DC Selegiline HCl (Emsam) 1 patch DAILY TD ; Start 09/13/16 at 09:00; Stop at 18:35; Status DC Buspirone HCl (Buspar) 7.5 mg BID PO Last administered on 09/27/16 09:12; Start 09/12/16 at 21:00; Stop 09/27/16 at 10:31; Status DC Amiodarone HCl (Cordarone) 100 mg DAILY PO Last administered on 10/25/16 08:03 ; Start 09/13/16 at 09:00 Aspirin (Children'S Aspirin) 81 mg DAILY PO Last administered on 10/25/16 08: 01; Start 09/13/16 at 09:00 Famotidine (Pepcid) 20 mg DAILY PO Last administered on 10/25/16 08:01; Start 09/13/16 at 09:00 Lisinopril (Prinivil) 5 mg DAILY PO Last administered on 10/25/16 08:02; Start 09/13/16 at 09:00 Loperamide HCl (Imodium) 2 mg PRN Q4HRS PRN PO DIARRHEA; Start 09/12/16 at 19: 45 Tamsulosin HCl (Flomax) 0.4 mg DAILY PO Last administered on 10/25/16 08:04; Start 09/13/16 at 09:00 Warfarin Sodium (Coumadin) 2.5 mg DAILY16 PO Last administered on 09/14/16 16: 05; Start 09/13/16 at 16:00; Stop 09/15/16 at 15:03; Status DC Multivitamins/ Calcium (Thera-M Plus) 1 tab DAILY PO Last administered on 08:01; Start 09/13/16 at 09:00 Warfarin Sodium (Coumadin) 2 mg DAILY16 PO Last administered on 09/14/16 16:06 ; Start 09/13/16 at 16:00; Stop 09/15/16 at 15:02; Status DC Warfarin Sodium (Coumadin Per Pharmacy) 1 each PRN DAILY PRN MC SEE COMMENTS Last administered on 10/23/16 08:43; Start 09/13/16 at 03:15 Vitamin D (Vitamin D3) 50,000 unit WEEKLY PO Last administered on 10/19/16 13: 09; Start 09/14/16 at 09:00 Selegiline HCl (Eldepryl) 5 mg DAILY PO Last administered on 10/07/16 09:39; Start 09/14/16 at 09:00; Stop 10/07/16 at 20:59; Status DC Trazodone HCl (Desyrel) 50 mg PRN QHS PRN PO INSOMNIA, MAY REPEAT X1 Last administered on 10/22/16 19:50; Start 09/14/16 at 19:15 Nystatin (Nystop) 1 derek BID TP Last administered on 10/25/16 19:47; Start at 09:00 Nystatin (Nystop) 30 derek STK-MED ONCE TP Last administered on 09/14/16 21:27; Start 09/14/16 at 21:27; Stop 09/14/16 at 21:28; Status DC Warfarin Sodium (Coumadin) 3 mg 1X WARF ONCE PO Last administered on 15:48; Start 09/15/16 at 16:00; Stop 09/15/16 at 16:01; Status DC Warfarin Sodium (Coumadin) 2.5 mg 1X ONCE PO Last administered on 09/15/16 15 :47; Start 09/15/16 at 15:15; Stop 09/15/16 at 15:17; Status DC Warfarin Sodium (Coumadin) 5 mg 1X WARF ONCE PO Last administered on 18:16; Start 09/16/16 at 16:00; Stop 09/16/16 at 16:01; Status DC Warfarin Sodium (Coumadin) 2 mg 1X WARF ONCE PO Last administered on 16:02; Start 09/17/16 at 16:00; Stop 09/17/16 at 16:01; Status DC Warfarin Sodium (Coumadin) 2.5 mg 1X WARF ONCE PO Last administered on 16:03; Start 09/17/16 at 16:00; Stop 09/17/16 at 16:01; Status DC Lorazepam (Ativan) 0.5 mg TID PO Last administered on 09/20/16 20:45; Start at 21:00; Stop 09/20/16 at 21:00; Status DC Lorazepam (Ativan) 0.5 mg BID PO Last administered on 09/24/16 19:38; Start at 09:00; Stop 09/24/16 at 21:01; Status DC Lorazepam (Ativan) 0.5 mg DAILY PO Last administered on 09/27/16 09:15; Start 09/25/16 at 09:00; Stop 09/27/16 at 10:39; Status DC Warfarin Sodium (Coumadin) 2.5 mg 1X WARF ONCE PO Last administered on 14:58; Start 09/18/16 at 16:00; Stop 09/18/16 at 16:01; Status DC Warfarin Sodium (Coumadin) 2 mg 1X WARF ONCE PO Last administered on 14:59; Start 09/18/16 at 16:00; Stop 09/18/16 at 16:01; Status DC Sertraline HCl (Zoloft) 25 mg DAILY PO Last administered on 09/24/16 07:43; Start 09/19/16 at 09:00; Stop 09/24/16 at 18:00; Status DC Warfarin Sodium (Coumadin - No Dose Today) 1 each 1X WARF ONCE MC Last administered on 09/19/16 14:14; Start 09/19/16 at 16:00; Stop 09/19/16 at 16:02 ; Status DC Quetiapine Fumarate (SEROquel) 25 mg QHS PO Last administered on 10/03/16 19: 12; Start 09/20/16 at 21:00; Stop 10/04/16 at 10:51; Status DC Warfarin Sodium (Coumadin) 2.5 mg 1X WARF ONCE PO Last administered on 16:31; Start 09/20/16 at 16:00; Stop 09/20/16 at 16:01; Status DC Valproic Acid (Depakene) 250 mg BID PO Last administered on 09/25/16 09:29; Start 09/20/16 at 21:00; Stop 09/25/16 at 18:06; Status DC Warfarin Sodium (Coumadin) 2.5 mg 1X WARF ONCE PO Last administered on 16:02; Start 09/21/16 at 16:00; Stop 09/21/16 at 16:01; Status DC Warfarin Sodium (Coumadin) 1 mg 1X WARF ONCE PO Last administered on 16:02; Start 09/21/16 at 16:00; Stop 09/21/16 at 16:01; Status DC Mirtazapine (Remeron) 7.5 mg QHS PO Last administered on 09/26/16 19:21; Start 09/21/16 at 21:00; Stop 09/27/16 at 10:31; Status DC Warfarin Sodium (Coumadin) 4 mg 1X WARF ONCE PO Last administered on 16:31; Start 09/22/16 at 16:00; Stop 09/22/16 at 16:01; Status DC Warfarin Sodium (Coumadin) 4 mg 1X WARF ONCE PO Last administered on 15:42; Start 09/23/16 at 16:00; Stop 09/23/16 at 16:01; Status DC Warfarin Sodium (Coumadin) 4 mg DAILY16 PO Last administered on 09/25/16 16:00 ; Start 09/24/16 at 16:00; Stop 09/26/16 at 08:25; Status DC Sertraline HCl (Zoloft) 50 mg DAILY PO Last administered on 10/03/16 08:52; Start 09/25/16 at 09:00; Stop 10/03/16 at 14:04; Status DC Valproic Acid (Depakene) 375 mg BID PO Last administered on 10/03/16 08:53; Start 09/25/16 at 21:00; Stop 10/03/16 at 18:33; Status DC Warfarin Sodium (Coumadin) 2 mg DAILY16 PO Last administered on 10/08/16 16:21 ; Start 09/26/16 at 16:00; Stop 10/08/16 at 16:53; Status DC Warfarin Sodium (Coumadin) 2.5 mg DAILY16 PO Last administered on 10/08/16 16: 21; Start 09/26/16 at 16:00; Stop 10/08/16 at 16:53; Status DC Quetiapine Fumarate (SEROquel) 12.5 mg BID92 PO Last administered on 09/30/16 13:36; Start 09/27/16 at 09:00; Stop 09/30/16 at 22:00; Status DC Buspirone HCl (Buspar) 10 mg TID PO Last administered on 10/25/16 19:45; Start 09/27/16 at 14:00 Mirtazapine (Remeron) 15 mg QHS PO Last administered on 10/25/16 19:45; Start 09/27/16 at 21:00 Lorazepam (Ativan) 0.5 mg DAILY PO Last administered on 10/17/16 07:51; Start 09/28/16 at 09:00; Stop 10/17/16 at 17:00; Status DC Quetiapine Fumarate (SEROquel) 12.5 mg 0900,1400,1700 PO Last administered on 08:52; Start 10/01/16 at 09:00; Stop 10/03/16 at 14:04; Status DC Olanzapine (ZyPREXA ZYDIS) 2.5 mg PRN Q2HR PRN PO PSYCHOSIS Last administered on 10/23/16 13:17; Start 10/03/16 at 10:00 Quetiapine Fumarate (SEROquel) 25 mg 0900,1400,1700 PO Last administered on 10/04 10:01; Start 10/03/16 at 17:00; Stop 10/04/16 at 10:51; Status DC Hydroxyzine HCl (Atarax) 50 mg PRN Q2HR PRN PO ANXIETY / AGITATION Last administered on 10/06/16 11:50; Start 10/03/16 at 14:15 Valproic Acid (Depakene) 500 mg BID PO Last administered on 10/25/16 19:45; Start 10/03/16 at 21:00 Risperidone (RisperDAL) 0.25 mg BID PO Last administered on 10/09/16 09:01; Start 10/04/16 at 21:00; Stop 10/09/16 at 18:21; Status DC Levothyroxine Sodium (Synthroid) 12.5 mcg DAILY06 PO Last administered on 06:43; Start 10/07/16 at 06:00 Lorazepam (Ativan) 0.25 mg PRN Q2HR PRN PO ANXIETY / AGITATION Last administered on 10/24/16 19:14; Start 10/07/16 at 21:15 Risperidone (RisperDAL) 0.375 mg DAILY PO Last administered on 10/25/16 08:03 ; Start 10/10/16 at 09:00 Risperidone (RisperDAL) 0.25 mg QHS PO Last administered on 10/25/16 19:46; Start 10/09/16 at 21:00 Warfarin Sodium (Coumadin - No Dose Today) 1 each 1X WARF ONCE MC Last administered on 10/10/16 14:23; Start 10/10/16 at 16:00; Stop 10/10/16 at 16:01; Status DC Haloperidol Lactate (Haldol) 5 mg DAILY IM Last administered on 10/12/16 08:42 ; Start 10/10/16 at 08:00; Stop 10/12/16 at 18:58; Status DC Lorazepam (Ativan) 0.5 mg DAILY IM Last administered on 10/12/16 08:43; Start 10/10/16 at 08:00; Stop 10/12/16 at 18:43; Status DC Warfarin Sodium (Coumadin) 4 mg DAILY16 PO Last administered on 10/14/16 16:00 ; Start 10/11/16 at 16:00; Stop 10/15/16 at 09:01; Status DC Fluvoxamine Maleate (Luvox) 25 mg HS PO Last administered on 10/14/16 19:23; Start 10/11/16 at 21:00; Stop 10/15/16 at 17:44; Status DC Haloperidol (Haldol) 2.5 mg DAILY PO Last administered on 10/15/16 08:47; Start 10/13/16 at 09:00; Stop 10/15/16 at 19:00; Status DC Warfarin Sodium (Coumadin) 2.5 mg 1X WARF ONCE PO Last administered on 16:22; Start 10/15/16 at 16:00; Stop 10/15/16 at 16:01; Status DC Warfarin Sodium (Coumadin) 2 mg 1X WARF ONCE PO Last administered on 16:22; Start 10/15/16 at 16:00; Stop 10/15/16 at 16:01; Status DC Fluvoxamine Maleate (Luvox) 50 mg HS PO Last administered on 10/21/16 19:37; Start 10/15/16 at 21:00; Stop 10/21/16 at 21:42; Status DC Warfarin Sodium (Coumadin) 4 mg 1X WARF ONCE PO Last administered on 15:34; Start 10/16/16 at 16:00; Stop 10/16/16 at 16:01; Status DC Warfarin Sodium (Coumadin) 2.5 mg 1X WARF ONCE PO Last administered on 14:42; Start 10/17/16 at 16:00; Stop 10/17/16 at 16:01; Status DC Warfarin Sodium (Coumadin) 2 mg 1X WARF ONCE PO Last administered on 14:42; Start 10/17/16 at 16:00; Stop 10/17/16 at 16:01; Status DC Warfarin Sodium (Coumadin) 4 mg Q48H ONCE PO ; Start 10/18/16 at 16:00; Stop at 16:00; Status DC Warfarin Sodium (Coumadin) 2 mg Q48H ONCE PO ; Start 10/19/16 at 16:00; Stop at 16:00; Status DC Warfarin Sodium (Coumadin) 2.5 mg Q48H ONCE PO ; Start 10/19/16 at 16:00; Stop 10/19/16 at 16:00; Status DC Warfarin Sodium (Coumadin) 4 mg Q48H PO Last administered on 10/24/16 16:29; Start 10/18/16 at 16:00 Warfarin Sodium (Coumadin) 2 mg Q48H PO Last administered on 10/25/16 17:29; Start 10/19/16 at 16:00 Warfarin Sodium (Coumadin) 2.5 mg Q48H PO Last administered on 10/25/16 17:29 ; Start 10/19/16 at 16:00 Ferrous Sulfate (Feosol) 325 mg DAILYWBKFT PO Last administered on 10/25/16 08 :01; Start 10/19/16 at 08:00 Haloperidol (Haldol) 5 mg 1X PO Last administered on 10/19/16 09:38; Start at 09:45; Stop 10/22/16 at 08:39; Status DC Lorazepam (Ativan) 0.5 mg DAILY IM Last administered on 10/20/16 10:36; Start 10/19/16 at 09:00; Stop 10/20/16 at 19:46; Status DC Haloperidol Lactate (Haldol) 5 mg DAILY IM Last administered on 10/20/16 10:35 ; Start 10/19/16 at 09:00; Stop 10/20/16 at 19:46; Status DC Haloperidol (Haldol) 5 mg DAILY PO Last administered on 10/21/16 09:00; Start 10/21/16 at 09:00; Stop 10/22/16 at 08:38; Status DC Fluvoxamine Maleate (Luvox) 75 mg HS PO Last administered on 10/24/16 19:12; Start 10/22/16 at 21:00; Stop 10/25/16 at 18:25; Status DC Haloperidol (Haldol) 5 mg DAILY PO Last administered on 10/25/16 08:01; Start 10/22/16 at 09:00 Fluvoxamine Maleate (Luvox) 100 mg HS PO Last administered on 10/25/16 19:47; Start 10/25/16 at 21:00 Active Scripts Active Reported Trazodone Hcl 50 Mg Tablet 50 Mg PO PRN QHS PRN Risperdal (Risperidone) 0.25 Mg Tablet 0.25 Mg PO QHS Risperdal (Risperidone) 0.25 Mg Tablet 0.375 Mg PO DAILY Hydroxyzine Hcl 50 Mg Tablet 50 Mg PO PRN Q2HR PRN Fluvoxamine Maleate 50 Mg Tablet 50 Mg PO QHS Buspirone Hcl 10 Mg Tablet 10 Mg PO TID Coumadin (Warfarin Sodium) 2.5 Mg Tablet 2.5 Mg PO Coumadin (Warfarin Sodium) 2 Mg Tablet 2 Mg PO Depakene (Valproate Sodium) 250 Mg/5 Ml Solution 500 Mg PO BID Zyprexa Zydis (Olanzapine) 5 Mg Tab.rapdis 2.5 Mg PO PRN Q2HR PRN Nystatin 15 Gm Powder 1 Derek TP BID Mirtazapine 15 Mg Tablet 15 Mg PO QHS Analgesic Gardiner (Methyl Salicylate/Menthol) 28 Gm Oint...g. 1 Derek TP PRN QID PRN Milk Of Magnesia (Magnesium Hydroxide) 400 Mg/5 Ml Oral.susp 2,400 Mg PO PRN QHS PRN Mag-Al Plus Xs Suspension (Mag Hydrox/Al Hydrox/Simeth) 30 Ml Oral.susp 15 Ml PO PRN AFTMEALHC PRN Levothyroxine Sodium 25 Mcg Tablet 12.5 Mcg PO DAILY06 Ferrous Sulfate 325 Mg Tablet 325 Mg PO DAILYWBKFT D3-50 (Cholecalciferol (Vitamin D3)) 50,000 Unit Capsule 50,000 Unit PO WEEKLY Tylenol (Acetaminophen) 325 Mg Tablet 650 Mg PO PRN Q6HRS PRN Therems-M (Multivits, W-,Other Min) 1 Each Tablet 1 Each PO DAILY Tamsulosin Hcl 0.4 Mg Cap.er.24h 0.4 Mg PO DAILY Lisinopril 5 Mg Tablet 5 Mg PO DAILY Famotidine 20 Mg Tablet 20 Mg PO DAILY Emsam (Selegiline) 1 Each Patch.td24 1 Each TD DAILY Aspirin 81 Mg Tab.chew 81 Mg PO DAILY Amiodarone Hcl 200 Mg Tablet 100 Mg PO DAILY Depakote (Divalproex Sodium) 250 Mg Tablet.dr 250 Mg PO BID Coumadin (Warfarin Sodium) 4 Mg Tablet 4.5 Mg PO DAILY Ativan (Lorazepam) 0.5 Mg Tablet 0.5 Mg PO PRN BID PRN Imodium A-D (Loperamide HCl) 2 Mg Capsule 2 Mg PO PRN PRN MDD 12 mg Ativan (Lorazepam) 1 Mg Tablet 1 Mg PO BID Buspirone Hcl 7.5 Mg Tablet 7.5 Mg PO BID Diagnosis: Problems: (1) Dementia (2) Anxiety disorder (3) Encounter for medical screening examination (4) Impulse control disorder (5) Dementia, vascular, with depression (6) Dementia, vascular, with delusions (7) Dementia in Alzheimer's disease with depression (8) Dementia in Alzheimer's disease with delusions LINDSAY BROWN MD Oct 25, 2016 19:55
--- NOTE | 2016-10-25 22:07 | NUR ---
Behavior Intervention Response and Plan: BIRP Note: Behavior: Assumed Care of patient, patient located in Day Room at shift change. Patient exhibited the following behavior Calm, Compliant, Cooperative. Brief assessment on rounds of vital signs, medication needs, lab studies, and pain. Treatment plan problems Danger to Others and Fall Risk. Intervention: Patient assessed and the following interventions initiated safety checks 15 Minute Checks Cognitive Assessment , Head to toe Assessment , Medications. Response: After interactions and interventions patient responded in the following manner, Wandering , Calm ,Compliant. Continue to assess behaviors and condition will continue to monitor throughout the shift as needed. 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 Continue to assess patient for changes in above assessment. Monitor for medication needs, pain, and safety concerns. Hourly rounding performed to ensure safe environment.
[2016-10-26] MEDS ORDERED: HALO5TAB PO (01:09)
[2016-10-26] MEDS ORDERED: FLUV100T2 PO (01:13)
[2016-10-26] MEDS ORDERED: LORA0.5T PO (01:15)
[2016-10-26] MEDS: LEVOTHYROXINE 25 MCG TABLET. PO SCH (06:02)
[2016-10-26 06:04] VITALS: BP 125/78
[2016-10-26] MEDS: LISINOPRIL 5 MG TABLET. PO SCH (08:23)
[2016-10-26 08:24] VITALS: BP 125/78
[2016-10-26] MEDS: AMIODARONE HCL 200 MG TABLET PO SCH (08:24)
[2016-10-26] MEDS: MULTIVITAMIN with MINERAL TABLET. PO SCH (08:24)
[2016-10-26] MEDS: ASPIRIN 81 MG TAB.CHEW PO SCH (08:24)
[2016-10-26] MEDS: TAMSULOSIN 0.4 MG CAP.ER.24H. PO SCH (08:25)
[2016-10-26] MEDS: FAMOTIDINE 20 MG TABLET PO SCH (08:25)
[2016-10-26] MEDS: VALPROATE ACID 250 MG/5 ML ORAL SOLUTION PO SCH (08:25)
[2016-10-26] MEDS: risperiDONE 0.25 MG TABLET. PO SCH (08:25)
[2016-10-26] MEDS: busPIRone 10 MG TABLET. PO SCH (08:25)
[2016-10-26] MEDS: FERROUS SULFATE 325 MG TABLET PO SCH (08:25)
[2016-10-26] MEDS: HALOPERIDOL 5 MG TABLET PO SCH (08:27)
[2016-10-26] MEDS: CHOLECALCIFEROL (VITAMIN D3) 50,000 UNIT CAPSULE PO SCH (08:27)
[2016-10-26] MEDS: NYSTATIN TOPICAL POWDER 30GM BOTTLE. TP SCH (08:27)
[2016-10-26] MEDS: LORazepam 0.5 MG TABLET PO PRN (10:55)
--- NOTE | 2016-10-26 11:10 | NUR ---
Behavior Intervention Response and Plan: BIRP Note: Behavior: Assumed Care of patient, patient located in Hallway at shift change. Patient exhibited the following behavior Disorganized, Delusions, Cooperative. Brief assessment on rounds of vital signs, medication needs, lab studies, and pain. Treatment plan problems 1-2. Intervention: Patient assessed and the following interventions initiated safety checks 15 Minute Checks Cognitive Assessment , Head to toe Assessment , Medications. Response: After interactions and interventions patient responded in the following manner, Disorganized , Wandering ,Delusions. Continue to assess behaviors and condition will continue to monitor throughout the shift as needed. 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 Continue to assess patient for changes in above assessment. Monitor for medication needs, pain, and safety concerns. Hourly rounding performed to ensure safe environment.
--- NOTE | 2016-10-26 12:02 | NUR ---
Discharge Note SB Patient is not currently a tobacco user. Follow up Appointment made: PCP and psychiatrist Date and Time 10/26 914 instructions and Social Work Discharge planning sheet sent to next level of care. [facility] contact Number for 24 hour support [phone] Discharge Packet Sent, and discusssed with patient and caregiver that includes Copies from the record of current medications with indications and frequencies, history and physical, Psychiatric Eval with reason and justification for admission, Lab values, Radiology results , follow up instructions for continuation of care, and Social Work discharge planning form: yes Discharge Packet Faxed to Provider/Next Level of Care: yes Discharge Packet Faxed with discharge Order and Discharge diagnosis sent to: José Manuel Discharge Packet Discussed, and report Given to: SHIV at nurses station Discharge instruction sheet was included in the packet and sent with the patient upon discharge. Any Pending lab results can be obtained by calling [phone] Discharge Summary will be sent to next care provider when available. This includes the reason for admission, DC diagnosis, and next level of care recommendations.
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
--- NOTE | 2016-10-26 23:52 | PN ---
DATE: 10/25/2016 PSYCHIATRIC PROGRESS NOTE This is a late entry for 10/25/2016, covers elements not covered in my initial note. SUBJECTIVE: The patient was staffed at treatment team meeting morning of 10/25/2016, seen individually on rounds the evening of 10/25/2016. The patient remains confused, less aggressive. He is still somewhat obsessive about being home. REVIEW OF SYSTEMS: No CV, , pulmonary, eye, ENT system symptoms on review. Reliability poor. MENTAL STATUS EXAM: Oriented to himself. Insight, judgment, recent and remote memory, attention, concentration, fund of knowledge poor, consistent with his diagnosis mentioned in my initial note. IMPRESSION: Major neurocognitive disorder, Alzheimer, vascular with depression, delusion, behavioral disturbance. Rest unchanged. PLAN: Continue psychotropics mentioned in my initial note. Increas Luvox from 75 mg a day to 100 mg a day, continue Haldol 5 mg p.o., Depakote, Ativan p.r.n., trazodone, Risperdal, Remeron, Zyprexa p.r.n. The patient is on 2 antipsychotics, Risperdal and Haldol depending on his progress starting about one month, after discharge if he is stable, the Haldol could be reduced to 2.5 mg a day for 1 month and then stopped while continuing the Risperdal. MAN Phoenix BROWN MD DR: JEREL/tavo JOB#: [id number] / [id number]
== END 2016-10-26 13:16 | disposition home or self-care (01) | DRG 884 ==
LOC: ER 15:42 → GEROPSY 18:11
PROVIDERS: ADMIT Psychiatry & Neurology Psychiatry; ATTEND Psychiatry & Neurology Psychiatry
DX: F01.51 Vascular dementia, unspecified severity, with behavioral disturbance (principal); F02.81 Dementia in other diseases classified elsewhere, unspecified severity, with behavioral disturbance; F25.0 Schizoaffective disorder, bipolar type; E03.9 Hypothyroidism, unspecified; E78.5 Hyperlipidemia, unspecified; F63.9 Impulse disorder, unspecified; F41.9 Anxiety disorder, unspecified; G20 Parkinson's disease; G30.9 Alzheimer's disease, unspecified; I10 Essential (primary) hypertension; F31.77 Bipolar disorder, in partial remission, most recent episode mixed; I48.91 Unspecified atrial fibrillation; G40.409 Other generalized epilepsy and epileptic syndromes, not intractable, without status epilepticus; N40.0 Benign prostatic hyperplasia without lower urinary tract symptoms; R41.83 Borderline intellectual functioning; Z86.61 Personal history of infections of the central nervous system; Z86.73 Personal history of transient ischemic attack (TIA), and cerebral infarction without residual deficits; Z95.0 Presence of cardiac pacemaker; Z88.2 Allergy status to sulfonamides
CPT/HCPCS: 36415; 80053; 80061; 80164; 81001; 82306; 82607; 83036; 83540; 83550; 83735; 84436; 84439; 84443; 84480; 84481; 85027; 85610; 86592; 86593; 93005; J1630; J2060; 97116; 97530; 99285-25